=== PATIENT | female | born 1950 | race Caucasian/White ===

== ENCOUNTER 2018-09-10 14:39 | Observation (INO) | payer MEDICARE, OTHER ==
[~2018-09-10] VITALS: Ht 157.5 cm; Wt 96.2 kg
--- OUTSIDE RECORDS SUMMARY | ~2018-09-10 | XMS | Encounter Summary ---
Demographics + + + | Address | [address] | | | [place] [address] | + + + | Home Phone | | + + + | Preferred Language | Unknown | + + + | Marital Status | | + + + | Zoroastrian Affiliation | NON | + + + | Race | White | + + + | Ethnic Group | Not or | + + + Author + + + | Author | [facility] | + + + | Organization | [facility] | + + + | Address | Unknown | + + + | Phone | Unavailable | + + + Support + + + + + | Name | Relationship | Address | Phone | + + + + + | Ted Casas | ECON | [address] | | | | | [place] | | | | | [address] | | + + + + + | Carmen Renteria | ECON | [address] | | | | | [place] | | | | | [address] | | + + + + + | Vince Loredo | ECON | [place] | | + + + + + Care Team Providers + +------+ + | Care Career Technical Education Instructor Name | Role | Phone | + +------+ + | Adrián Gregory MD | PCP | | + +------+ + Reason for Visit + + + | Reason | Comments | + + + | Follow-up encounter | R breast recon follow up | + + + Office Visit - E/M Services (Routine) +--------+--------+ + + + + | Status | Reason | Specialty | Diagnoses / | Referred By | Referred To | | | | | Procedures | Contact | Contact | +--------+--------+ + + + + | Closed | | Plastic | Diagnoses | Pls | Jv, | | | | Surgery | Acquired | Gen/Recon | MD Jelena | | | | | absence of | [address] | | | | | breast | [address] | Ave | | | | | | Mail Code: | [place], [place] | | | | | | [address] | [address] | | | | | | for Health | Phone: | | | | | | and Healing, | [phone] | | | | | | 5th Floor | Fax: | | | | | | [place], [place] | [phone] | | | | | | [address] | | | | | | | Phone: | | | | | | | [phone] | | +--------+--------+ + + + + Encounter Details +--------+---------+ + + + | Date | Type | Department | Care Team | Description | +--------+---------+ + + + | 04/27/ | Office | Plastic and | Jelena Carias, | Acquired absence of | | 2009 | Visit | Reconstructive | [address] | breast; Hernia, | | | | Surgery at [facility] [address] | [place], [place] | epigastric | | | | [address] Mail | [address] | | | | | Code: [facility] Center | [phone] | | | | | for Health and | | | | | | Healing, 5th Floor | | | | | | [place], [place] | | | | | | [address] | | | | | | [phone] | | | +--------+---------+ + + + Social History + + + +--------+ + | Tobacco Use | Types | Packs/Day | Years | Date | | | | | Used | | + + + +--------+ + | Former Smoker | Cigarettes | 1 | 30 | Quit: 04/15/2003 | + + + +--------+ + + + +---------+ + | Alcohol Use | Drinks/Week | oz/Week | Comments | + + +---------+ + | Yes | | | rarely | + + +---------+ + + + + | Sex Assigned at | Date Recorded | | | | + + + | Not on file | | + + + + + + + | Job Start Date | Occupation | Industry | + + + + | Not on file | Not on file | Not on file | + + + + + + + + | Travel History | Travel Start | Travel End | + + + + + + | No recent travel history available. | + + documented as of this encounter Progress Notes Jelena Carias MD - 04/27/2009 11:47 AM PSTSubjective: Roman Casas presents 1 years status post TRAM and 7 months since right NAC. Current concerns include: epigastric bulge No pain or discomfort Objective: Right flap and NAC well healed. Good symmetry Epigastric bulge - 5X5 cm. Reduces when supine. Tender with deep palpation. Lower donor site well healed Assessment: Possible epigastric hernia. She denies nausea/vomiting or pain Otherwise she looks great Plan: Recheck for changes/enlargement Pt will follow up in 2 months with me or, sooner prn. 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
--- OUTSIDE RECORDS SUMMARY | ~2018-09-10 | XMS | Encounter Summary ---
Demographics + + + | Address | [address] | | | [place] [address] | + + + | Home Phone | | + + + | Preferred Language | Unknown | + + + | Marital Status | | + + + | Yarsanism Affiliation | NON | + + + | Race | White | + + + | Ethnic Group | Not or | + + + Author + + + | Author | [facility] | + + + | Organization | [facility] | + + + | Address | Unknown | + + + | Phone | Unavailable | + + + Support + + + + + | Name | Relationship | Address | Phone | + + + + + | Ted Casas | ECON | [address] | | | | | [place] | | | | | [address] | | + + + + + | Carmen Renteria | ECON | [address] | | | | | [place] | | | | | [address] | | + + + + + | Vince Loredo | ECON | [place] | | + + + + + Care Team Providers + +------+ + | Care Pan Washer Hand Name | Role | Phone | + +------+ + | Dominick Garcia MD | PCP | | + +------+ + Encounter Details +--------+ + + + + | Date | Type | Department | Care Team | Description | +--------+ + + + + | 05/31/ | Telephone | [facility] | Redd Ernareina Waldron, | | | 2016 | | Center - Medical | MD [address] | | | | | Oncology [address] | [place], [place] | | | | | Street The | [address] | | | | | [place], [place] | [phone] | | | | | [address] | | | | | | [phone] | | | +--------+ + + + + Social History + + [...] + + documented as of this encounter Plan of Treatment Not on filedocumented as of this encounter Visit Diagnoses Not on filedocumented in this encounter"
--- OUTSIDE RECORDS SUMMARY | ~2018-09-10 | XMS | Encounter Summary ---
Demographics + + + | Address | [address] | | | [place] [address] | + + + | Home Phone | | + + + | Preferred Language | Unknown | + + + | Marital Status | | + + + | Holiness Affiliation | NON | + + + | Race | White | + + + | Ethnic Group | Not or | + + + Author + + + | Author | [facility] | + + + | Organization | [facility] | + + + | Address | Unknown | + + + | Phone | Unavailable | + + + Support + + + + + | Name | Relationship | Address | Phone | + + + + + | Ted Casas | ECON | [address] | | | | | [place] | | | | | [address] | | + + + + + | Carmen Renteria | ECON | [address] | | | | | [place] | | | | | [address] | | + + + + + | Vince Loredo | ECON | [place] | | + + + + + Care Team Providers + +------+ + | Care Police Detention Attendant Name | Role | Phone | + +------+ + | Adrián Gregory MD | PCP | | + +------+ + Encounter Details +--------+ + + + + | Date | Type | Department | Care Team | Description | +--------+ + + + + | 05/10/ | Reinsurance Clerk | Preoperative | [facility] [place] | HTN (Primary Dx) | | 2008 | | [facility] | J, VICE PRESIDENT CONSULTING SERVICES [address] | | | | | [address] | [facility] | | | | | [facility] | [place], [place] | | | | | [facility] | [address] | | | | | room [address] [place] [address], | [phone] | | | | | [place] [address] | | | | | | [phone] | | | +--------+ + + + [...] Comments | + + +---------+ + | Not Asked | | | | + + +---------+ + + + [...] Not on filedocumented as of this encounter Procedures + +--------+ + + + | Procedure Name | Priori | Date/Time | Associated Diagnosis | Comments | | | ty | | | | + +--------+ + + + | 12 LEAD ECG | Routin | 05/07/2008 | HTN | Results for this | | | e | 1:18 PM | | procedure are in the | | | | PST | | results section. | + +--------+ + + + documented in this encounter Results 12 LEAD ECG (05/07/2008 1:18 PM PST) + + + + + + | Component | Value | Ref Range | Performed | Pathologist | | | | | At | Signature | + + + + + + | VENTRICULAR | 89 | BPM | [facility] | | | RATE | | | OF | | | | | | CARDIOLOGY | | + + + + + + | ATRIAL RATE | 89 | BPM | [facility] | | | | | | OF | | | | | | CARDIOLOGY | | + + + + + + | P-R | 166 | ms | [facility] | | | INTERVAL | | | OF | | | | | | CARDIOLOGY | | + + + + + + | QRS | 84 | ms | [facility] | | | DURATION | | | OF | | | | | | CARDIOLOGY | | + + + + + + | QT | 388 | ms | [facility] | | | | | | OF | | | | | | CARDIOLOGY | | + + + + + + | QTC | 472 | ms | [facility] | | | | | | OF | | | | | | CARDIOLOGY | | + + + + + + | P AXIS | 51 | degrees | [facility] | | | | | | OF | | | | | | CARDIOLOGY | | + + + + + + | R AXIS | 22 | degrees | [facility] | | | | | | OF | | | | | | CARDIOLOGY | | + + + + + + | T AXIS | 63 | degrees | [facility] | | | | | | OF | | | | | | CARDIOLOGY | | + + + + + + | EKG | Sinus rhythm with | | [facility] | | | DIAGNOSIS | Possible Premature | | OF | | | | atrial complexes with | | CARDIOLOGY | | | | Aberrant | | | | | | conductionPossible Left | | | | | | atrial enlargementSeptal | | | | | | infarct , age | | | | | | undeterminedAbnormal | | | | | | ECG"I have personally | | | | | | interpreted this report, | | | | | | either alone or with a | | | | | | trainee."Confirmed by | | | | | | BALBINA MOLINA ([id number]) on | | | | | | 11-May-2008 17:09:45 | | | | + + + + + + | LINK TO | | | [facility] | | | [facility] | | | OF | | | (ECG | | | CARDIOLOGY | | | VIEWER) | | | | | + + + + + + + + | Specimen | + + | | + + + + + | Narrative | Performed At | + + + | Please click | [facility] | | on view image for the detailed interpretation from [employer] results. | CARDIOLOGY | | | | + + + + + + + + | Performing | Address | City/State/Zipcode | Phone Number | | Organization | | | | + + + + + | [facility] | [address] | [place], [place] | | | CARDIOLOGY | [address] | [address] | | + + + + + | [facility] | [address] | [place], [place] | | | CARDIOLOGY | [address] [facility] | [address] | | + + + + + documented in this encounter Visit Diagnoses + + | Diagnosis | + + | HTN - Primary Unspecified essential hypertension | + + documented in this encounter
--- OUTSIDE RECORDS SUMMARY | ~2018-09-10 | XMS | Encounter Summary ---
Demographics + + + | Address | [address] | | | [place] [address] | + + + | Home Phone | | + + + | Preferred Language | Unknown | + + + | Marital Status | | + + + | Anabaptist Affiliation | NON | + + + | Race | White | + + + | Ethnic Group | Not or | + + + Author + + + | Author | [facility] | + + + | Organization | [facility] | + + + | Address | Unknown | + + + | Phone | Unavailable | + + + Support + + + + + | Name | Relationship | Address | Phone | + + + + + | Ted Casas | ECON | [address] | | | | | [place] | | | | | [address] | | + + + + + | Carmen Renteria | ECON | [address] | | | | | [place] | | | | | [address] | | + + + + + | Vince Loredo | ECON | [place] | | + + + + + Care Team Providers + +------+ + | Care Tool And Die Engineer Name | Role | Phone | + +------+ + | Dominick Clark | PCP | | + +------+ + Encounter Details +--------+------+ + + + | Date | Type | Department | Care Team | Description | +--------+------+ + + + | 09/10/ | Lab | [facility] | | Malignant neoplasm | | 2017 | | Center - Lab [address] | | of upper-outer | | | | [address] | | quadrant of right | | | | [place], [place] | | breast in female, | | | | [address] | | estrogen receptor | | | | [phone] | | positive (HCC) | +--------+------+ + + + Social History + + + +--------+ + | Tobacco Use | Types | Packs/Day | Years | Date | | | | | Used | | + + + +--------+ + | Former Smoker | Cigarettes | 1 | 30 | Quit: 04/15/2003 | + + + +--------+ + + +---+---+---+ | Smokeless Tobacco: | | | | | Never Used | | | | + +---+---+---+ + + +---------+ + | Alcohol Use [...] | + +--------+ + + + | CBC W/DIFF, REFLEX | Routin | 09/10/2017 | Malignant neoplasm | Results for this | | | e | 9:38 AM | of upper-outer | procedure are in the | | | | PDT | quadrant of right | results section. | | | | | breast in female, | | | | | | estrogen receptor | | | | | | positive (HCC) | | + +--------+ + + + | CBC AND AUTO DIFF | Routin | 09/10/2017 | Malignant neoplasm | Results for this | | | e | 9:38 AM | of upper-outer | procedure are in the | | | | PDT | quadrant of right | results section. | | | | | breast in female, | | | | | | estrogen receptor | | | | | | positive (HCC) | | + +--------+ + + + | CARCINOEMBRYONIC AG, | Routin | 09/10/2017 | Malignant neoplasm | Results for this | | SERUM | e | 9:38 AM | of upper-outer | procedure are in the | | | | PDT | quadrant of right | results section. | | | | | breast in female, | | | | | | estrogen receptor | | | | | | positive (HCC) | | + +--------+ + + + | COMPLETE METABOLIC | Routin | 09/10/2017 | Malignant neoplasm | Results for this | | SET | e | 9:38 AM | of upper-outer | procedure are in the | | (NA,K,CL,CO2,BUN,CRE | | PDT | quadrant of right | results section. | | AT,GLUC,CA,AST,ALT,B | | | breast in female, | | | VINCE TOTAL,ALK | | | estrogen receptor | | | PHOS,ALB,PROT TOTAL) | | | positive (HCC) | | + +--------+ + + + documented in this encounter Results CBC AND AUTO DIFF (09/10/2017 9:38 AM PDT) + + + + + + | Component | Value | Ref Range | Performed | Pathologist | | | | | At | Signature | + + + + + + | WBC COUNT | 4.6 | 3.5 - 10.8 K/cu | [facility] | | | | | mm | A MEDICAL | | | | | | CENTER | | + + + + + + | RED CELL | 4.70 | 4.00 - 5.20 | [facility] | | | COUNT | | M/cu mm | A MEDICAL | | | | | | CENTER | | + + + + + + | HEMOGLOBIN | 13.3 | 12.0 - 16.0 | [facility] | | | | | g/dL | A MEDICAL | | | | | | CENTER | | + + + + + + | HEMATOCRIT | 38.1 | 36.0 - 46.0 % | [facility] | | | | | | A MEDICAL | | | | | | CENTER | | + + + + + + | MCV | 81.1 | 80.0 - 96.0 fL | [facility] | | | | | | A MEDICAL | | | | | | CENTER | | + + + + + + | MCH | 28.3 | 28.0 - 34.7 pg | [facility] | | | | | | A MEDICAL | | | | | | CENTER | | + + + + + + | MCHC | 34.9 | 33.0 - 35.5 | [facility] | | | | | g/dL | A MEDICAL | | | | | | CENTER | | + + + + + + | RDW | 14.9 | 11.5 - 15.0 % | [facility] | | | | | | A MEDICAL | | | | | | CENTER | | + + + + + + | PLATELET | 122 (L) | 150 - 400 K/cu | [facility] | | | COUNT | | mm | A MEDICAL | | | | | | CENTER | | + + + + + + | MPV | 7.7 | 7.5 - 11.2 fL | [facility] | | | | | | A MEDICAL | | | | | | CENTER | | + + + + + + | NEUTROPHIL | 48.4 (L) | 50.0 - 70.0 % | [facility] | | | % | | | A MEDICAL | | | | | | CENTER | | + + + + + + | LYMPHOCYTE | 42.0 | 18.0 - 42.0 % | [facility] | | | % | | | A MEDICAL | | | | | | CENTER | | + + + + + + | MONOCYTE % | 6.5 | 3.5 - 9.0 % | [facility] | | | | | | A MEDICAL | | | | | | CENTER | | + + + + + + | EOS % | 1.9 | 1.0 - 3.0 % | [facility] | | | | | | A MEDICAL | | | | | | CENTER | | + + + + + + | BASO % | 1.2 | 0.0 - 2.0 % | [facility] | | | | | | A MEDICAL | | | | | | CENTER | | + + + + + + | NEUTROPHIL | 2.20 | 1.80 - 7.70 | [facility] | | | # | | K/cu mm | A MEDICAL | | | | | | CENTER | | + + + + + + | LYMPHOCYTE | 1.90 | 1.00 - 4.80 | [facility] | | | # | | K/cu mm | A MEDICAL | | | | | | CENTER | | + + + + + + | MONOCYTE # | 0.30 | 0.10 - 0.90 | [facility] | | | | | K/cu mm | A MEDICAL | | | | | | CENTER | | + + + + + + | EOS # | 0.10 | 0.00 - 0.50 | [facility] | | | | | K/cu mm | A MEDICAL | | | | | | CENTER | | + + + + + + | BASO # | 0.10 | 0.00 - 0.10 | [facility] | | | | | K/cu mm | A MEDICAL | | | | | | CENTER | | + + + + + + + + | Specimen | + + | Blood | + + + + + + + | Performing | Address | City/State/Zipcode | Phone Number | | Organization | | | | + + + + + | [facility] | And | [place] [address] | [phone] | | MEDICAL CENTER | Streets | | | + + + + + CARCINOEMBRYONIC AG, SERUM (09/10/2017 9:38 AM PDT) + +-------+ + + + | Component | Value | Ref Range | Performed | Pathologist | | | | | At | Signature | + +-------+ + + + | CEA-CARCINO | 8.3 | ng/mL | [facility] | | | EMBRYONIC | | | A MEDICAL | | | AG, SERUM | | | CENTER | | + +-------+ + + + + + | Specimen | + + | Blood | + + + + + | Narrative | Performed At | + + + | Reference Range: Non-smokers: 0.0-3.0 ng/mL | [facility] | | Smokers: 0.0-5.0 ng/mL | MEDICAL CENTER | + + + + + + + + | Performing | Address | City/State/Zipcode | Phone Number | | Organization | | | | + + + + + | [facility] | And | [place] [address] | [phone] | | [facility] [place] | [place] | | | + + + + + COMPLETE METABOLIC SET (NA,K,CL,CO2,BUN,CREAT,GLUC,CA,AST,ALT,BILI TOTAL,ALK PHOS,ALB,PROT TOTAL) (09/10/2017 9:38 AM PDT) + +---------+ + + + | Component | Value | Ref Range | Performed | Pathologist | | | | | At | Signature | + +---------+ + + + | GLUCOSE, | 161 (H) | 70 - 105 mg/dL | [facility] | | | PLASMA | | | A MEDICAL | | | (LAB) | | | CENTER | | + +---------+ + + + | BUN, PLASMA | 12 | 6 - 26 mg/dL | [facility] | | | (LAB) | | | A MEDICAL | | | | | | CENTER | | + +---------+ + + + | CREATININE, | 0.5 (L) | 0.6 - 1.1 mg/dL | [facility] | | | PLASMA | | | A MEDICAL | | | | | | CENTER | | + +---------+ + + + | SODIUM, | 144 | 137 - 146 | [facility] | | | PLASMA | | mmol/L | A MEDICAL | | | (LAB) | | | CENTER | | + +---------+ + + + | POTASSIUM, | 4.2 | 3.4 - 5.3 | [facility] | | | PLASMA | | mmol/L | A MEDICAL | | | (LAB) | | | CENTER | | + +---------+ + + + | CHLORIDE, | 104 | 96 - 106 mmol/L | [facility] | | | PLASMA | | | A MEDICAL | | | (LAB) | | | CENTER | | + +---------+ + + + | TOTAL CO2, | 25 | 18 - 30 mmol/L | [facility] | | | PLASMA | | | A MEDICAL | | | (LAB) | | | CENTER | | + +---------+ + + + | CALCIUM, | 9.5 | 8.5 - 10.8 | [facility] | | | PLASMA | | mg/dL | A MEDICAL | | | (LAB) | | | CENTER | | + +---------+ + + + | BILIRUBIN | 0.2 | 0.2 - 1.2 mg/dL | [facility] | | | TOTAL | | | A MEDICAL | | | | | | CENTER | | + +---------+ + + + | TOTAL | 6.6 | 5.8 - 8.5 g/dL | [facility] | | | PROTEIN, | | | A MEDICAL | | | PLASMA | | | CENTER | | | (LAB) | | | | | + +---------+ + + + | ALBUMIN, | 4.0 | 3.5 - 5.0 g/dL | [facility] | | | PLASMA | | | A MEDICAL | | | (LAB) | | | CENTER | | + +---------+ + + + | ALK PHOS | 68 | 32 - 180 U/L | [facility] | | | | | | A MEDICAL | | | | | | CENTER | | + +---------+ + + + | AST(SGOT) | 22 | 10 - 41 U/L | [facility] | | | | | | A MEDICAL | | | | | | CENTER | | + +---------+ + + + | ALT (SGPT) | 20 | 7 - 51 U/L | [facility] | | | | | | A MEDICAL | | | | | | CENTER | | + +---------+ + + + | EGFR | >60 | >60 mL/min | [facility] | | | - | | | A MEDICAL | | | [place] | | | CENTER | | + +---------+ + + + | EGFR NON | >60 | >60 mL/min | [facility] | | | -MAX | | | A MEDICAL | | | [place] | | | CENTER | | + +---------+ + + + | ANION GAP | 15 | 12 - 20 mmol/L | [facility] | | | | | | A MEDICAL | | | | | | CENTER | | + +---------+ + + + | BUN/CREATIN | 24 | 6 - 20 | [facility] | | | INE RATIO | | | A MEDICAL | | | | | | CENTER | | + +---------+ + + + | FASTING 8 | No | | [facility] | | | HOURS OR | | | A MEDICAL | | | MORE? | | | CENTER | | + +---------+ + + + + + | Specimen | + + | Blood | + + + + + | Narrative | Performed At | + + + | GFR is estimated using the MDRD equation recommended by the | [facility] | | National Kidney Disease Education Program. Estimated GFR | [facility] | | Interpretive Information: <60 mL/min/1.73 sq | | | m Chronic Kidney Disease <15 mL/min/1.73 | | | sq m Kidney Failure Estimated GFR greater | | | that 60 mL/min/1.73 sq m is of limited clinical value. The MDRD | | | equation is not valid in the following situations: - Patients under | | | 18 years of age - Severe malnutrition or obesity - Vegetarian diet | | | - Rapidly changing kidney function - Amputees, paraplegics, or other | | | muscle-wasting diseses | | + + + + + + + + | Performing | Address | City/State/Zipcode | Phone Number | | Organization | | | | + + + + + | [facility] | | [place] [address] | [phone] | | [facility] | Streets | | | + + + + + documented in this encounter Visit Diagnoses + + | Diagnosis | + + | Malignant neoplasm of upper-outer quadrant of right breast in female, estrogen | | receptor positive (HCC) | + + documented in this encounter"
--- OUTSIDE RECORDS SUMMARY | ~2018-09-10 | XMS | Encounter Summary ---
Demographics + + + | Address | [address] | | | [place] [address] | + + + | Home Phone | | + + + | Preferred Language | Unknown | + + + | Marital Status | | + + + | Sabianism Affiliation | NON | + + + | Race | White | + + + | Ethnic Group | Not or | + + + Author + + + | Author | [facility] | + + + | Organization | [facility] | + + + | Address | Unknown | + + + | Phone | Unavailable | + + + Support + + + + + | Name | Relationship | Address | Phone | + + + + + | Ted Casas | ECON | [address] | | | | | [place] | | | | | [address] | | + + + + + | Carmen Renteria | ECON | [address] | | | | | [place] | | | | | [address] | | + + + + + | Vince Loredo | ECON | [place] | | + + + + + Care Team Providers + +------+ + | Care Head End Desizing Machine Operator Name | Role | Phone | + +------+ + | Adrián Gregory MD | PCP | | + +------+ + Encounter Details +--------+ + + + + | Date | Type | Department | Care Team | Description | +--------+ + + + + | 01/09/ | Office | [facility] | Erna Rainey, | Progress Note | | 2010 | Visit-Trans | [address] | MD [address] | | | | [address]ed | [place] | [place] | | | | | [address] | [address] | | | | | | [phone] | | | | | | | | +--------+ + + + [...] documented as of this encounter Progress Notes Erna Rainey MD - 01/09/2011 12:40 PM [facility] [address] [place] [id number] [place], [place] [address] DATE OF SERVICE: January 09, 2011 DIAGNOSIS: Stage I (T1b N0 M0) breast cancer. INTERVAL HISTORY: The patient is currently taking Arimidex as part of adjuvant treatment. She started in April 2007, has been taking it since then. She reported persistent hot flashes, which are tolerable to her. She had a quite significant arthralgia due to Arimidex, for which she is being treated with Percocet. She averaged about less than 1 tablet a day. She had a bone scan in June 2010, which revealed no evidence of metastatic disease. PHYSICAL EXAMINATION: VITAL SIGNS: She weighs 169.4 pounds. Blood pressure 128/82, pulse 86, temperature 97.7, saturation 98%. GENERAL APPEARANCE: She is pleasant and well nourished and not in acute distress. HEENT: Sclerae nonicteric. No facial asymmetry. NECK: Supple. LUNGS: Clear. HEART: Rate is regular. BREASTS: Examination reveals surgical scars well healed in the right breast, status post reconstruction. There is no palpable mass, nipple discharge or retraction. Left breast examination is normal. No axillary palpable lymphadenopathies bilaterally. LABORATORY DATA: WBC 4.6, hemoglobin 12.2, platelet count 167,000. CMP is unremarkable. IMPRESSION: Doing well clinically without any evidence of cancer recurrence. PLAN: 1. Gave refill of Percocet. 2. She will take Arimidex until April 2012. 3. She will return in 6 months for next followup. PAKO/Juan /[id number] Electronically Signed 02/08/12 0916 X MD LEONARDO Brown LEE ANN [id number] : [id number] SERVICE DATE: 01/09/11 3 :56 PM PDTdocumented in this encounter Plan of Treatment Not on filedocumented as of this encounter Visit Diagnoses Not on filedocumented in this encounter"
--- OUTSIDE RECORDS SUMMARY | ~2018-09-10 | XMS | Clinical Summary ---
Demographics + + + | Address | [address] | | | [place] [address] | + + + | Home Phone | | + + + | Preferred Language | Unknown | + + + | Marital Status | | + + + | Spiritism Affiliation | Unknown | + + + | Race | Unknown | + + + | Ethnic Group | Unknown | + + + Author + + + | Author | [facility] | + + + | Organization | [facility] | + + + | Address | Unknown | + + + | Phone | Unavailable | + + + Support + + + + + | Name | Relationship | Address | Phone | + + + + + | Ted Patterson | ECON | [address] | | | | | [place] | | | | | [address] | | + + + + + | Jersey Marroquin | ECON | [place] | | | | | [address] | | + + + + + Care Team Providers + +------+ + | Care Stain Remover Name | Role | Phone | + +------+ + | Joselin Jose PA-C | PP | | + +------+ + Allergies + + + + + + | Active Allergy | Reactions | Severity | Noted | Comments | | | | | Date | | + + + + + + | Cephalexin | Hives | High | 01/28/20 | | | | | | 16 | | + + + + + + | Penicillins | Hives | High | 05/12/19 | | | | | | 16 | | + + + + + + | Quinine | Hives | High | 08/29/19 | | | | | | 16 | | + + + + + + | Sulfa Antibiotics | Hives | High | 05/12/19 | | | | | | 16 | | + + + + + + Current Medications + + + +---------+------+------+-------+ | Prescription | Sig. | Disp. | Refills | Star | End | Statu | | | | | | t | Date | s | | | | | | Date | | | + + + +---------+------+------+-------+ | fenofibrate | Take 160 mg by mouth | | | | | Activ | | (TRIGLIDE) 160 MG | daily. | | | | | e | | tablet | | | | | | | + + + +---------+------+------+-------+ | FLUoxetine | Take 20 mg by mouth | | | | | Activ | | (PROZAC) 20 MG | daily. | | | | | e | | capsule | | | | | | | + + + +---------+------+------+-------+ | furosemide (LASIX) | Take 40 mg by mouth | | | | | Activ | | 20 MG tablet | daily. | | | | | e | + + + +---------+------+------+-------+ | irbesartan | Take 300 mg by mouth | | | | | Activ | | (AVAPRO) 300 MG | daily. | | | | | e | | tablet | | | | | | | + + + +---------+------+------+-------+ | levothyroxine | Take 75 mcg by mouth | | | | | Activ | | (SYNTHROID) 75 MCG | every morning | | | | | e | | tablet | before breakfast. | | | | | | + + + +---------+------+------+-------+ | potassium chloride | Take 20 mEq by mouth | | | | | Activ | | (K-DUR) 10 MEQ | 3 (three) times | | | | | e | | tablet | daily. | | | | | | + + + +---------+------+------+-------+ | rosuvastatin | Take 40 mg by mouth | | | | | Activ | | (CRESTOR) 40 MG | nightly. | | | | | e | | tablet | | | | | | | + + + +---------+------+------+-------+ | | Take 1 tablet by | | | | | Activ | | sitagliptan-metformi | mouth 2 (two) times | | | | | e | | n (LACEY) 50-1000 | daily with meals. | | | | | | | MG per tablet | | | | | | | + + + +---------+------+------+-------+ | glucagon 1 MG | Inject 1 mg into the | | | | | Activ | | injection | vein. | | | | | e | + + + +---------+------+------+-------+ | metoprolol | Take 50 mg by mouth | | | | | Activ | | (TOPROL-XL) 50 MG 24 | daily. | | | | | e | | hr tablet | | | | | | | + + + +---------+------+------+-------+ | esomeprazole | Take 40 mg by mouth | | | | | Activ | | (NEXIUM) 20 MG | every morning before | | | | | e | | capsule | breakfast. | | | | | | + + + +---------+------+------+-------+ | insulin aspart | 20 units at | 30 mL | 12 | 07/1 | | Activ | | (NOVOLOG FLEXPEN) | breakfast, 15 units | | | 4/20 | | e | | 100 UNIT/ML | at lunch, at 30 | | | 16 | | | | injection | units at dinner; | | | | | | | | subq | | | | | | + + + +---------+------+------+-------+ | bisacodyl | Place 1 suppository | 1 | 0 | 12/14 | | Activ | | (DULCOLAX) 10 MG | rectally the day | supposito | | 1/20 | | e | | suppository | before the CT scan | ry | | 16 | | | + + + +---------+------+------+-------+ | amitriptyline | Take 100 mg by mouth | | | | | Activ | | (ELAVIL) 50 MG | nightly. | | | | | e | | tablet | | | | | | | + + + +---------+------+------+-------+ | DULoxetine | Take one tablet once | 90 | 2 | 05/2 | | Activ | | (CYMBALTA) 30 MG | a day for a week, | capsule | | 4/20 | | e | | capsule | then switch to two a | | | 19 | | | | | day | | | | | | + + + +---------+------+------+-------+ | anastrozole | Take 1 mg by mouth | | | | 05/2 | Disco | | (ARIMIDEX) 1 MG | daily. | | | | 4/20 | ntinu | | tablet | | | | | 19 | ed | + + + +---------+------+------+-------+ | | Take 1 tablet by | | | | 05/2 | Disco | | HYDROcodone-acetamin | mouth every 4 (four) | | | | 4/20 | ntinu | | ophen (NORCO) 5-325 | hours as needed for | | | | 19 | ed | | MG per tablet | Pain. | | | | | | + + + +---------+------+------+-------+ | | Take 1 tablet by | | | | 05/2 | Disco | | oxyCODONE-acetaminop | mouth every 6 (six) | | | | 4/20 | ntinu | | hen (PERCOCET) 5-325 | hours as needed for | | | | 19 | ed | | MG per tablet | Pain. | | | | | | + + + +---------+------+------+-------+ | LORazepam (ATIVAN) | Take 0.5 mg by mouth | | | | 05/2 | Disco | | 0.5 MG tablet | every 8 (eight) | | | | 4/20 | ntinu | | | hours as needed for | | | | 19 | ed | | | Anxiety. | | | | | | + + + +---------+------+------+-------+ | insulin glargine | Inject 65 Units into | 30 mL | 11 | 07/1 | 05/2 | Disco | | (LANTUS SOLOSTAR) | the skin nightly. | | | 4/20 | 4/20 | ntinu | | 100 UNIT/ML | | | | 16 | 19 | ed | | injection | | | | | | | + + + +---------+------+------+-------+ | barium (VARIBAR) | Take barium oral | 3 | 0 | / | 05/2 | Disco | | 40 % SUSP | prep per included | Bottle | | 05/04 | 20 | ntinu | | | written | | | 16 | 19 | ed | | | instructions. | | | | | | + + + +---------+------+------+-------+ | magnesium citrate | Take the day before | 296 mL | 0 | 12/14 | 05/2 | Disco | | solution | CT scan | | | 05/04 | 08/02 | ntinu | | | | | | 16 | 19 | ed | + + + +---------+------+------+-------+ | bisacodyl | Take 2 tablets by | 2 | 0 | 12/14 | 05/2 | Disco | | (DULCOLAX) 5 MG EC | mouth the day before | tablet | | 20 | 4/20 | ntinu | | tablet | CT exam. | | | 16 | 19 | ed | + + + +---------+------+------+-------+ Active Problems + + + | Problem | Noted Date | + + + | Lumbosacral radiculopathy at L5 | 09/09/2018 | + + + | Polyneuropathy | 07/30/2018 | + + + | Type II diabetes mellitus, uncontrolled | 10/27/2015 | + + + | Essential hypertension with goal blood pressure less than 130/80 | 10/27/2015 | + + + | Hyperlipidemia | 10/27/2015 | + + + | Bilateral carpal tunnel syndrome | 07/07/2015 | + + + Encounters +--------+ + + + + | Date | Type | Specialty | Care Team | Description | +--------+ + + + + | 09/05/ | Office | | Wally Shell, | Achilles tendon pain | | 2019 | Visit | | MD | (Primary Dx); | | | | | | Lumbosacral | | | | | | radiculopathy at L5; | | | | | | Polyneuropathy | +--------+ + + + + | 09/05/ | Refill | | Olivia Loera | | 2018 | | | [facility] | | +--------+ + + + + | 08/05/ | Hospital | | Wally Shell, | Numbness | | 2018 | Encounter | | MD | | +--------+ + + + + | 07/30/ | Procedure | | Wally Shell, | Numbness (Primary | | 2018 | visit | | | Dx); Polyneuropathy | +--------+ + + + + | 07/30/ | Procedure | | | | | 2018 | Pass | | | | +--------+ + + + + | 06/20/ | Documentati | Wally Barker, | | | 2019 | on Only | | MD | | +--------+ + + + + | 06/19/ | Telephone | | Wally Shell, | Referral (Returning | | 2018 | | | MD | call to schedule | | | | | | consult) | +--------+ + + + + from Last 3 Months Family History + + +------+ + | Medical History | Relation | Name | Comments | + + +------+ + | Diabetes type II | Brother | | | + + +------+ + | Cancer | Father | | pancreatic | + + +------+ + | Cancer | Paternal | | lung cancer (smoker) | | | Aunt | | | + + +------+ + | Cancer | Paternal | | brain | | | Grandmoth | | | | | er | | | + + +------+ + + +------+--------+ + | Relation | Name | Status | Comments | + +------+--------+ + | Brother | | | | + +------+--------+ + | Father | | | | + +------+--------+ + | Paternal Aunt | | | | + +------+--------+ + | Paternal Grandmother | | | | + +------+--------+ + Social History + +-------+ +--------+ + | Tobacco Use | Types | Packs/Day | Years | Date | | | | | Used | | + +-------+ +--------+ + | Former Smoker | | 0.5 | 30 | Quit: 04/15/2005 | + +-------+ +--------+ + + +---+---+---+ | Smokeless Tobacco: | | | | | Never Used | | | | + +---+---+---+ + + +---------+ + | Alcohol Use | Drinks/We | oz/Week | Comments | | | ek | | | + + +---------+ + | Yes | | | rarely | + + +---------+ + + + + | Sex Assigned at | Date Recorded | | | | + + + | Not on file | | + + + Last Filed Vital Signs + + + + | Vital Sign | Reading | Time Taken | + + + + | Blood Pressure | 129/78 | 09/05/2018 8:22 AM PDT | + + + + | Pulse | 103 | 09/05/2018 8:22 AM PDT | + + + + | Temperature | 36.4 C (97.5 F) | 05/13/2015 2:04 AM PST | + + + + | Respiratory Rate | 18 | 05/13/2015 2:04 AM PST | + + + + | Oxygen Saturation | 95% | 09/05/2018 8:22 AM PDT | + + + + | Inhaled Oxygen | - | - | | Concentration | | | + + + + | Weight | 84.4 kg (186 lb 1.6 | 05/09/2016 12:51 PM PST | | | oz) | | + + + + | Height | 157.5 cm (5' 2") | 06/04/2002 3:28 PM PST | + + + + | Body Mass Index | - | - | + + + + Plan of Treatment +--------+---------+ + + + | Date | Type | Specialty | Care Team | Description | +--------+---------+ + + + | 10/21/ | Office | | Wally Shell, | | | 2019 | Visit | | MD Bart Sheridan | | | | | | [place], [place] | | | | | | [phone] | | | | | | | | +--------+---------+ + + + + + + + + | Health Maintenance | Due Date | Last Done | Comments | + + + + + | Diabetic Eye Exam | | | | | | 2 | | | + + + + + | Hemoglobin A1c | | | | | | 2 | | | + + + + + | Microalbumin | | | | | Screening | 2 | | | + + + + + | Breast Cancer | | | | | Screening | 2 | | | | (Mammogram) | | | | + + + + + | Vaccine: Zoster (2 | | 08/06/2014 | | | of 3) | 5 | | | + + + + + | DEXA SCAN SCREENING | | | | | | 7 | | | + + + + + | Diabetic Foot Exam | | 05/09/2016 | | | | 8 | | | + + + + + | Vaccine: | | 06/26/2017 | | | Pneumococcal 65+ | 9 | | | | Low/Medium Risk (2 | | | | | of 2 - PPSV23) | | | | + + + + + | Vaccine: | | 10/25/2014 | | | Dtap/Tdap/Td (2 - | 5 | | | | Td) | | | | + + + + + | Colon Cancer | | 12/26/2015 | | | Screening | 6 | | | | (Colonoscopy) | | | | + + + + + | Vaccine: Influenza | Completed | 01/02/2018, 02/28/2017, | | | | | 12/28/2015 | | + + + + + Procedures + +--------+ + + + | Procedure Name | Priori | Date/Time | Associated Diagnosis | Comments | | | ty | | | | + +--------+ + + + | MRI LUMBAR SPINE WO | Routin | 08/05/2018 | Numbness | Results for this | | CONTRAST | e | 1:03 PM | | procedure are in the | | | | PDT | | results section. | + +--------+ + + + from Last 3 Months Results MRI lumbar spine without contrast (08/05/2018 1:03 PM) + + + | Impressions | Performed At | + + + | 1. Moderate to severe disc space narrowing and endplate degeneration | [facility] | | seen at L4-L5 and L5-S1. 2. Narrowing of the left lateral recess at | [facility] | | L4-5 compresses the traversing left L5 nerve root. 3. Moderate | | | bilateral foraminal narrowing at L5-S1 with possible compression of | | | the exiting L5 nerve roots. Signed by: Linda Lopez, J Luis Sign | | | Date/Time: 08/06/2018 10:49 AM | | + + + + + + | Narrative | Performed At | + + + | MRI LUMBAR SPINE WITHOUT CONTRAST CLINICAL INFORMATION: Numbness | [facility] | | in left big toe. COMPARISON: CT ABDOMEN W CONTRAST (11/02/2013); CT | RADIOLOGY | | VIRTUAL COLONOSCOPY WO CONTRAST (12/26/2015); PROCEDURE: Sagittal | | | T2, axial T2, sagittal T1, axial T1, sagittal STIR sequences. | | | FINDINGS: Alignment: Normal. Vertebrae and vertebral marrow signal: | | | Normal. Conus and imaged portions of the caudal cord: | | | Normal. Conus terminates at L1-L2. Lumbar disc levels: | | | T12-L1: No spinal canal or neural foraminal stenosis. L1-2: No | | | spinal canal or neural foraminal stenosis. L2-3: No spinal canal | | | or neural foraminal stenosis. L3-4: No spinal canal or neural | | | foraminal stenosis. L4-5: Moderate degenerative disc disease seen | | | with disc space narrowing and endplate erosions. The disc shows | | | circumferential bulging. The canal measures 12 mm in AP dimension | | | however there is narrowing of the left lateral recess due to the disc | | | bulge and facet hypertrophy and thickening of the ligamentum | | | flavum. Compression of the traversing left L5 nerve root is | | | seen. There is moderate left foraminal narrowing due to the | | | overall disc space narrowing and encroaching disc material in the | | | left neural foramen as well as encroachment by the superior L5 | | | articular facet. There is mild compression of the exiting left L4 | | | nerve root. The right neural foramen is patent. | | | L5-S1: Moderate degenerative disc disease seen with disc space | | | narrowing and endplate erosions. The posterior contour of the disc | | | is normal. The canal is patent. No compression of the | | | traversing S1 nerve roots is seen bilateral foraminal narrowing is | | | noted due to encroachment by the superior S1 articular facets and | | | small bilateral foraminal disc protrusions. There appears to be | | | contact of the exiting L5 nerve roots in both neural foramina and | | | possible mild compression. The visualized portions of the kidneys | | | demonstrate a large 3.9 cm simple cyst of the right kidney. The | | | visualized portions of the liver, adrenal glands and aorta are | | | normal. Paraspinal musculature and paravertebral soft tissues: Normal | | | except for extensive subcutaneous edema from T12 through S3. | | + + + + + | Procedure Note | + + | Miguel, Rad Results In - 08/06/2018 10:53 AM PDT MRI LUMBAR SPINE WITHOUT CONTRAST | | CLINICAL INFORMATION: | | Numbness in left big toe. | | COMPARISON: | | CT ABDOMEN W CONTRAST (11/02/2013); CT VIRTUAL COLONOSCOPY WO CONTRAST | | (12/26/2015); | | PROCEDURE: | | Sagittal T2, axial T2, sagittal T1, axial T1, sagittal STIR sequences. | | FINDINGS: | | Alignment: Normal. | | Vertebrae and vertebral marrow signal: Normal. | | Conus and imaged portions of the caudal cord: Normal. Conus terminates | | at L1-L2. | | Lumbar disc levels: | | T12-L1: No spinal canal or neural foraminal stenosis. | | L1-2: No spinal canal or neural foraminal stenosis. | | L2-3: No spinal canal or neural foraminal stenosis. | | L3-4: No spinal canal or neural foraminal stenosis. | | L4-5: Moderate degenerative disc disease seen with disc space | | narrowing and endplate erosions. The disc shows circumferential | | bulging. The canal measures 12 mm in AP dimension however there is | | narrowing of the left lateral recess due to the disc bulge and facet | | hypertrophy and thickening of the ligamentum flavum. Compression of | | the traversing left L5 nerve root is seen. There is moderate left | | foraminal narrowing due to the overall disc space narrowing and | | encroaching disc material in the left neural foramen as well as | | encroachment by the superior L5 articular facet. There is mild | | compression of the exiting left L4 nerve root. The right neural | | foramen is patent. | | L5-S1: Moderate degenerative disc disease seen with disc space | | narrowing and endplate erosions. The posterior contour of the disc is | | normal. The canal is patent. No compression of the traversing S1 | | nerve roots is seen bilateral foraminal narrowing is noted due to | | encroachment by the superior S1 articular facets and small bilateral | | foraminal disc protrusions. There appears to be contact of the exiting | | L5 nerve roots in both neural foramina and possible mild compression. | | The visualized portions of the kidneys demonstrate a large 3.9 cm | | simple cyst of the right kidney. The visualized portions of the liver, | | adrenal glands and aorta are normal. | | Paraspinal musculature and paravertebral soft tissues: Normal except | | for extensive subcutaneous edema from T12 through S3. | | IMPRESSION: | | 1. Moderate to severe disc space narrowing and endplate degeneration | | seen at L4-L5 and L5-S1. | | 2. Narrowing of the left lateral recess at L4-5 compresses the | | traversing left L5 nerve root. | | 3. Moderate bilateral foraminal narrowing at L5-S1 with possible | | compression of the exiting L5 nerve roots. | | Signed by: Linda Lopez Edward | | Sign Date/Time: 08/06/2018 10:49 AM | + + + + + + + | Performing | Address | City/State/Zipcode | Phone Number | | Organization | | | | + + + + + | [facility] | [address] | [place] [address] | | + + + + + from Last 3 Months Insurance + +--------+ +------+-------+ + | Payer | Benefi | Subscriber | Type | Phone | Address | | | t Plan | ID | | | | | | / | | | | | | | Group | | | | | + +--------+ +------+-------+ + | MEDICARE | MEDICA | [id number] | | | [address] | | | RE | | | | [place], [place] [address] | | | YOBANY | | | | | | | AD | | | | | + +--------+ +------+-------+ + | COMMERCIAL OTHER | COMMER | [id number] | | | | | | CIAL | | | | | | | GENERI | | | | | | | C PLAN | | | | | + +--------+ +------+-------+ + + +--------+ +--------+ + + | Guarantor Name | Accoun | Relation to | Date | Phone | Billing Address | | | t Type | Patient | of | | | | | | | | | | + +--------+ +--------+ + + | PERRY PATTERSON | Person | Self [birth year] Home: | [address] | | | al/[place] | | [phone] | [phone] [place] | | | jitendra | | | [phone] | [phone] | + +--------+ +--------+ + +
--- OUTSIDE RECORDS SUMMARY | ~2018-09-10 | XMS | Encounter Summary ---
Demographics + + + | Address | [address] | | | [place] [address] | + + + | Home Phone | | + + + | Preferred Language | Unknown | + + + | Marital Status | | + + + | Moravian Affiliation | NON | + + + | Race | White | + + + | Ethnic Group | Not or | + + + Author + + + | Author | [facility] | + + + | Organization | [facility] | + + + | Address | Unknown | + + + | Phone | Unavailable | + + + Support + + + + + | Name | Relationship | Address | Phone | + + + + + | Ted Casas | ECON | [address] | | | | | [place] | | | | | [address] | | + + + + + | Carmen Renteria | ECON | [address] | | | | | [place] | | | | | [address] | | + + + + + | Vince Loredo | ECON | [place] | | + + + + + Care Team Providers + +------+ + | Care Electronic Scanner Operator Name | Role | Phone | + +------+ + | Dominick Clark | PCP | | + +------+ + Reason for Visit + + + | Reason | Comments | + + + | Refill Request | | + + + Encounter Details +--------+--------+ + + + | Date | Type | Department | Care Team | Description | +--------+--------+ + + + | 05/24/ | Refill | [facility] | Erna Rainey, | Refill Request | | 2017 | | Center - Medical | MD [address] | | | | | Oncology [address] | [place], [place] | | | | | [place] | [address] | | | | | [place], [place] | [phone] | | | | | [address] | | | | | | [phone] | | | +--------+--------+ + + + Social History + + [...]
--- OUTSIDE RECORDS SUMMARY | ~2018-09-10 | XMS | Encounter Summary ---
Demographics + + + | Address | [address] | | | [place] [address] | + + + | Home Phone | | + + + | Preferred Language | Unknown | + + + | Marital Status | | + + + | Anabaptist Affiliation | NON | + + + | Race | White | + + + | Ethnic Group | Not or | + + + Author + + + | Author | [facility] | + + + | Organization | [facility] | + + + | Address | Unknown | + + + | Phone | Unavailable | + + + Support + + + + + | Name | Relationship | Address | Phone | + + + + + | Ted Casas | ECON | [address] | | | | | [place] | | | | | [address] | | + + + + + | Carmen Renteria | ECON | [address] | | | | | [place] | | | | | [address] | | + + + + + | Vince Loredo | ECON | [place] | | + + + + + Care Team Providers + +------+ + | Care State'S Attorney Name | Role | Phone | + +------+ + | Adrián Gregory MD | PCP | | + +------+ + Encounter Details +--------+ + + + + | Date | Type | Department | Care Team | Description | +--------+ + + + + | 08/19/ | Results | [facility] | Erna Rainey, | | | 2007 | Only | Department | MD [address] | | | | | | [place] | | | | | | [address] | | | | | | [phone] | | | | | | | | +--------+ + + + + Social History + +-------+ +--------+------+ | Tobacco Use | Types | Packs/Day | Years | Date | | | | | Used | | + +-------+ +--------+------+ | Never Assessed | | | | | + +-------+ +--------+------+ + + + | Sex Assigned at [...] | CBC W/DIFF, REFLEX | Routin | 08/20/2007 | | Results for this | | | e | 11:55 AM | | procedure are in the | | | | PDT | | results section. | + +--------+ + + + | COMPLETE METABOLIC | Routin | 08/20/2007 | | Results for this | | SET | e | 11:55 AM | | procedure are in the | | (NA,K,CL,CO2,BUN,CRE | | PDT | | results section. | | AT,GLUC,CA,AST,ALT,B | | | | | | VINCE TOTAL,ALK | | | | | | PHOS,ALB,PROT TOTAL) | | | | | + +--------+ + + + documented in this encounter Results CBC W/DIFF, REFLEX (08/20/2007 11:55 AM PDT) + + + + + + | Component | Value | Ref Range | Performed | Pathologist | | | | | At | Signature | + + + + + + | WHITE BLOOD | 6.6 | 4.3 - 11.0 X10 | [facility] | | | CELL COUNT | | 3/ul | A MEDICAL | | | | | | CENTER | | + + + + + + | HEMOGLOBIN | 12.5 | 12.0 - 16.0 | [facility] | | | | | g/dL | A MEDICAL | | | | | | CENTER | | + + + + + + | RED BLOOD | 4.24 | 4.2 - 5.4 X10 | [facility] | | | CELL COUNT | | 6/uL | A MEDICAL | | | | | | CENTER | | + + + + + + | HEMATOCRIT | 35.9 (L) | 38.0 - 47.0 % | [facility] | | | | | | A MEDICAL | | | | | | CENTER | | + + + + + + | MCV | 85.0 | 82 - 100 fl | [facility] | | | | | | A MEDICAL | | | | | | CENTER | | + + + + + + | MCH | 29.4 | 28.0 - 32.0 pg | [facility] | | | | | | A MEDICAL | | | | | | CENTER | | + + + + + + | MCHC | 34.8 | 32 - 36 g/dL | [facility] | | | | | | A MEDICAL | | | | | | CENTER | | + + + + + + | RDW | 12.9 | 12 - 15 fL | [facility] | | | | | | A MEDICAL | | | | | | CENTER | | + + + + + + | PLATELET | 187 | 150 - 450 X10 3 | [facility] | | | COUNT | | | A MEDICAL | | | | | | CENTER | | + + + + + + | MPV | 7.5 (L) | 9.0 - 12.0 fL | [facility] | | | | | | A MEDICAL | | | | | | CENTER | | + + + + + + | NEUTROPHIL | 53.5 | 40 - 80 % | [facility] | | | % | | | A MEDICAL | | | | | | CENTER | | + + + + + + | NEUTROPHIL | 3.5 | 1.9 - 8.0 x10 | [facility] | | | # | | 3/UL | A MEDICAL | | | | | | CENTER | | + + + + + + | LYMPHOCYTE | 35.1 | 10 - 45 % | [facility] | | | % | | | A MEDICAL | | | | | | CENTER | | + + + + + + | LYMPHOCYTE | 2.3 | 0.9 - 5.2 x10 | [facility] | | | # | | 3/UL | A MEDICAL | | | | | | CENTER | | + + + + + + | EOS % | 5.1 (H) | 0 - 5 % | [facility] | | | | | | A MEDICAL | | | | | | CENTER | | + + + + + + | EOS # | 0.3 | 0.00 - 0.80 x10 | [facility] | | | | | 3/UL | A MEDICAL | | | | | | CENTER | | + + + + + + | BASO % | 0.6 | 0 - 1 % | [facility] | | | | | | A MEDICAL | | | | | | CENTER | | + + + + + + | BASO # | 0.0 | 0 - 0.20 x10 | [facility] | | | | | 3/UL | A MEDICAL | | | | | | CENTER | | + + + + + + | MONOCYTE % | 5.7 | 2 - 10 % | [facility] | | | | | | A MEDICAL | | | | | | CENTER | | + + + + + + | MONOCYTE # | 0.4 | 0.16 - 1.0 x10 | [facility] | | | | | 3/UL | A MEDICAL | | | | | | CENTER | | + + + + + + | BANDS % | 1.4 | 0 - 7 % | [facility] | | | | | | A MEDICAL | | | | | | CENTER | | + + + + + + | BANDS # | 0.1 | 0.00 - 0.70 x10 | [facility] | | | | | 3/UL | A MEDICAL | | | | | | CENTER | | + + + + + + + + | Specimen | + + | | + + + + + + + | Performing | Address | City/State/Zipcode | Phone Number | | Organization | | | | + + + + + | [facility] | | | | | LABORATORY | | | | + + + + + | [facility] | [address] | [place] [address] | | | MEDICAL CENTER | Streets | | | + + + + + COMPLETE METABOLIC SET (NA,K,CL,CO2,BUN,CREAT,GLUC,CA,AST,ALT,BILI TOTAL,ALK PHOS,ALB,PROT TOTAL) (08/20/2007 11:55 AM PDT) + +---------+ + + + | Component | Value | Ref Range | Performed | Pathologist | | | | | At | Signature | + +---------+ + + + | SODIUM, | 138 | 137 - 146 MEQ/L | [facility] | | | PLASMA | | | A MEDICAL | | | (LAB) | | | CENTER | | + +---------+ + + + | POTASSIUM, | 3.6 | 3.5 - 5.2 MEQ/L | [facility] | | | PLASMA | | | A MEDICAL | | | (LAB) | | | CENTER | | + +---------+ + + + | CO2 | 27 | 22 - 28 MEQ/L | [facility] | | | | | | A MEDICAL | | | | | | CENTER | | + +---------+ + + + | CHLORIDE, | 104 | 98 - 106 MEQ/L | [facility] | | | PLASMA | | | A MEDICAL | | | (LAB) | | | CENTER | | + +---------+ + + + | GLUCOSE, | 157 (H) | 70 - 105 MG/DL | [facility] | | | PLASMA | | | A MEDICAL | | | (LAB) | | | CENTER | | + +---------+ + + + | BUN, PLASMA | 20 | 8 - 30 MG/DL | [facility] | | | (LAB) | | | A MEDICAL | | | | | | CENTER | | + +---------+ + + + | CREATININE | 0.60 | 0.6 - 1.1 MG/DL | [facility] | | | PLASMA | | | A MEDICAL | | | (LAB) | | | CENTER | | + +---------+ + + + | BUN/CREATIN | 33 (H) | 6 - 20 RATIO | [facility] | | | INE RATIO | | | A MEDICAL | | | | | | CENTER | | + +---------+ + + + | CALCIUM, | 9.4 | 8.5 - 10.8 | [facility] | | | PLASMA | | MG/DL | A MEDICAL | | | (LAB) | | | CENTER | | + +---------+ + + + | AST(SGOT) | 28 | 10 - 41 U/L | [facility] | | | | | | A MEDICAL | | | | | | CENTER | | + +---------+ + + + | ALT (SGPT) | 32 | 7 - 51 U/L | [facility] | | | | | | A MEDICAL | | | | | | CENTER | | + +---------+ + + + | ALK PHOS | 47 | 40 - 180 U/L | [facility] | | | | | | A MEDICAL | | | | | | CENTER | | + +---------+ + + + | TOTAL | 6.4 (L) | 6.7 - 8.5 G/DL | [facility] | | | PROTEIN, | | | A MEDICAL | | | PLASMA | | | CENTER | | | (LAB) | | | | | + +---------+ + + + | ALBUMIN, | 3.9 | 3.5 - 5.0 G/DL | [facility] | | | PLASMA | | | A MEDICAL | | | (LAB) | | | CENTER | | + +---------+ + + + | BILIRUBIN | 0.6 | 0.2 - 1.6 MG/DL | [facility] | | | TOTAL | | | A MEDICAL | | | | | | CENTER | | + +---------+ + + + | FASTING? | 4HR PC | HR | [facility] | | | | | | A MEDICAL | | | | | | CENTER | | + +---------+ + + + + + | Specimen | + + | | + + + + + + + | Performing | Address | City/State/Zipcode | Phone Number | | Organization | | | | + + + + + | [facility] | | | | | LABORATORY | | | | + + + + + | [facility] | [address] | [place] [address] | | | MEDICAL CENTER | Streets | | | + + + + + documented in this encounter Visit Diagnoses Not on filedocumented in this encounter"
--- OUTSIDE RECORDS SUMMARY | ~2018-09-10 | XMS | Encounter Summary ---
Demographics + + + | Address | [address] | | | [place] [address] | + + + | Home Phone | | + + + | Preferred Language | Unknown | + + + | Marital Status | | + + + | Sabianism Affiliation | NON | + + + | Race | White | + + + | Ethnic Group | Not or | + + + Author + + + | Author | [facility] | + + + | Organization | [facility] | + + + | Address | Unknown | + + + | Phone | Unavailable | + + + Support + + + + + | Name | Relationship | Address | Phone | + + + + + | Ted Casas | ECON | [address] | | | | | [place] | | | | | [address] | | + + + + + | Carmen Renteria | ECON | [address] | | | | | [place] | | | | | [address] | | + + + + + | Vince Loredo | ECON | [place] | | + + + + + Care Team Providers + +------+ + | Care Head Of Digital Name | Role | Phone | + +------+ + PCP | Unavailable | + +------+ + Reason for Visit + + + | Reason | Comments | + + + | History and physical | right breast reconstruction with TRAM flap | | examination | | + + + | Pre-op evaluation | | + + + Encounter Details +--------+---------+ + + + | Date | Type | Department | Care Team | Description | +--------+---------+ + + + | 05/07/ | Office | Plastic and | Andrew Mendez PA | Acquired Absence of | | 2008 | Visit | Reconstructive | | Breast; Other | | | | Surgery at [facility] [address] | | Specified | | | | [address] | | Pre-Operative | | | | Code: [facility] Center | | Examination | | | | for Health and | | | | | | Healing, 5th Floor | | | | | | [place], [place] | | | | | | [address] | | | | | | [phone] | | | +--------+---------+ + + + [...] + + documented as of this encounter Last Filed Vital Signs + + + + + | Vital Sign | Reading | Time Taken | Comments | + + + + + | Blood Pressure | 126/65 | 05/07/2008 12:28 PM | | | | | PST | | + + + + + | Pulse | 94 | 05/07/2008 12:28 PM | | | | | PST | | + + + + + | Temperature | - | - | | + + + + + | Respiratory Rate | 20 | 05/07/2008 12:28 PM | | | | | PST | | + + + + + | Oxygen Saturation | 96% | 05/07/2008 12:28 PM | | | | | PST | | + + + + + | Inhaled Oxygen | - | - | | | Concentration | | | | + + + + + | Weight | 74.8 kg (165 lb) | 05/07/2008 12:28 PM | | | | | PST | | + + + + + | Height | 158.8 cm (5' 2.5") | 05/07/2008 12:28 PM | | | | | PST | | + + + + + | Body Mass Index | 29.7 | 05/07/2008 12:28 PM | | | | | PST | | + + + + + documented in this encounter Patient Instructions Patient Instructions Andrew Mendez PA - 05/07/2008 12:33 PM PSTRegistration Locations (pl ease check in at one of the following registration desks prior to surgery) For surgeries scheduled to take place on the [place] at the [facility]: Surgeries scheduled in the [facility] ( [facility]): registration is located on the 4th floor of [facility] (Day Surgery). Surgeries scheduled in the [facility]: registration is located on the 9th floor. Surgeries scheduled in [facility]: registration is located on the 6th floor. Surgeries scheduled in the [facility]: registration is located i n the [facility] on the first floor. For surgeries scheduled to take place at the [facility]: registration is l ocated on the 4th floor (Surgery Center). Important Information Due to the increased prevalence of pests in our community, we are asking patients to partne r with us to keep our hospital clean. If you have noticed bugs or other pests in your home, on your belongings or on your body, please contact your doctor's office prior to your admis isis. For your safety and protection, please limit what you bring to the hospital. All valuables should be left at home. This includes pillows, blankets, clothing, purses, wallets, money an d jewelry. Patients may not bring personal electronics into the hospital, including hairdry ers, electric [place], radios and CD players. If you use specialized medical equipment at [facility], please check with your provider before bringing it with you into the hospital. Registration Process for all Admissions/Surgeries Please bring your insurance card(s) with you and be prepared to pay any co-payment, co-insu qing or deposit that may be required. Once you arrive at the registration desk, you will be interviewed by a Patient Access Servi ce Specialist (THU). Demographics will be verified (example: name, date of , Social Se curity Number, address, insurance). You will be asked to sign some paperwork: Terms and Conditions of Service, Notice of Privac y Practices Acknowledgement and Genetic Testing Opt Out. You will be given some paperwork: copies of any forms signed by you, Patient Rights, Respon sibilities and Safety, Understanding Advance Directives, and Smoking Cessation Brochure. documented in this encounter Progress Notes Andrew Mendez PA - 05/07/2008 1:00 PM PST Addended by: ANDREW MENDEZ on: 05/07/2008 1:00:4 2 PM Modules accepted: Orders ndrew Mendez PA - 05/07/2008 12:33 PM PST Pre-Procedure History and Physical Date of Admission: 05-11-08 HISTORY: Roman Casas is a 57 y.o. female diagnosed with right breast cancer in 2006 by parth jiménez. Treatment thus far includes right total mastectomy and sentinel lymph node biopsy. Pt has not had radiation and has not had chemotherapy and there are no plans in the future. Cu rrently on Arimadex. CURRENT PROBLEM LIST: There are no active problems to display for this patient. Past Medical History Diagnosis Date Peripheral Vascular Disease Hypertension Dyslipidemia Breast Cancer GERD (Gastroesophageal Reflux Disease) Past Surgical History Procedure Date Hx mastectomy Angioplasty, renal, bilateral Hx hysterectomy MEDICATIONS: Current outpatient prescriptions Medication Sig Dispense Refill ARIMIDEX 1 mg Oral Tablet take 1 tablet (1 mg) by oral route once daily CALCIUM + D 600 (1,500)-200 mg-unit Oral Tablet 1 tab p.o. twice daily CRESTOR 20 mg Oral Tablet take 1 tablet (20 mg) by oral route once daily DIOVAN ORAL 1 tab p.o. qd FLEXERIL 5 mg Oral Tablet take 1 tablet (5 mg) by oral route 3 times per day gabapentin 300 mg Oral Capsule take 1 capsule (300 mg) by oral route 3 times per day MULTI-VITAMIN Oral Tablet take 1 tablet by oral route once daily with food NEXIUM PACKET 40 mg Oral Susp,Delayed Release for Recon take 1 packet (40 mg) by oral r oute 2 times per day mixed with 15 ml water, let sit 2-3 minutes, stir and drink within 30 m inutes PERCOCET 5-325 mg Oral Tablet take 1 tablet by oral route every 6 hours as needed potassium chloride SR 20 mEq Oral Tab Sust.Rel. Particle/Crystal take 1 tablet (20 meq) by oral route once daily with food spironolactone 25 mg Oral Tablet take 1 tablet (25 mg) by oral route once daily TRICOR 145 mg Oral Tablet take 1 tablet (145 mg) by oral route once daily TYLENOL PM ORAL 2 tab p.o. qhs. VITAMIN D ORAL 1 tab p.o. twice daily Allergies Allergen Reactions Sulfa (Sulfonamides) Hives Penicillin G Hives Tylenol-codeine #3 (Acetaminophen-codeine) Itching Vicodin (Hydrocodone-acetaminophen) Nausea/Vomiting FAMILY HISTORY: No family history on file. REVIEW OF SYSTEMS: denies fever, chills, N&V,CP,SOB,dysuria PHYSICAL EXAM: VITALS: Visit Vitals Item Reading BP 126/65 Pulse 94 Resp 20 Ht 1.588 m (5' 2.5") Wt 74.844 kg (165 lb) SpO2 96% HEENT: See Notes: PERRL, EOMI NECK: See Notes: supple, No LAD CHEST/LUNGS: See Notes: CTA bilat, BS equal HEART: See Notes: RRR, No mgr's ABDOMEN: See Notes: Soft, NT,ND + BS BREASTS:Right Breast: Surgically absent Left Breast: Sternal notch to nipple distance: 23 cm Breast width: 21 cm Mid-line to nipple: 13cm Ptosis: gr 2 Palpation reveals a discrete 1 cm subcutaneous cyst with an overlying sinus of the left sofy ast skin medially bilaterally. No right chest wall masses. There is no adenopathy or nipple discharge. BACK: Normal EXTREMITIES: Normal NEUROLOGICAL: See Notes: - Grossly intact, gait normal PROVISIONAL DIAGNOSIS: acquired absence of breast PLANNED COURSE OF ACTION: right breast reconstruction with TRAM . Roman Flores reports she initi ally discussed desired size of "B', but would like to become a "C" cup. She will discuss thi s the morning of surgery with Dr nayak per Dr Huey PORRAS: A PARQ session was held. 12:5 7 PM PSTdocumented in this encounter Plan of Treatment Not on filedocumented as of this encounter Results APTT (ACT. PART. THROMBO TIME) (05/07/2008 2:08 PM PST) + + + + + + | Component | Value | Ref Range | Performed | Pathologist | | | | | At | Signature | + + + + + + | APTT | 30.2Comment: | 26.0 - 36.0 | [facility] | | | | APTT | seconds | DEPARTMENT | | | | Therapeutic | | OF | | | | Range | | PATHOLOGY | | | | | | | | | | (75-120) | | | | | | sec | | | | | | Heparin levels of | | | | | | 0.35-0.7 U/mL | | | | + + + + + + + + | Specimen | + + | Blood - Blood | + + + + + + + | Performing | Address | City/State/Zipcode | Phone Number | | Organization | | | | + + + + + | [facility] | [address] | [place] [address] | | | PATHOLOGY | [address] | | | + + + + + | [facility] | [address] | [place] [address] | | | PATHOLOGY | [address] | | | + + + + + INR (05/07/2008 2:08 PM PST) + + + + + + | Component | Value | Ref Range | Performed | Pathologist | | | | | At | Signature | + + + + + + | INR | 1.06Comment: | 0.90 - 1.20 INR | [facility] | | | | INR | | DEPARTMENT | | | | Therapeutic ranges for | | OF | | | | full | | PATHOLOGY | | | | anticoagulation: | | | | | | INR for Venous | | | | | | Thromboembolism | | | | | | | | | | | | (2.0-3.0) | | | | | | INR INR for | | | | | | most patients with mech. | | | | | | | | | | | | valves (2.5-3.5) | | | | | | INR | | | | + + + + + + + + | Specimen | + + | Blood - Blood | + + + + + + + | Performing | Address | City/State/Zipcode | Phone Number | | Organization | | | | + + + + + | [facility] | [address] | [place] [address] | | | PATHOLOGY | [address] | | | + + + + + | [facility] | [address] | [place] [address] | | | PATHOLOGY | [address] | | | + + + + + CBC, WITH DIFFERENTIAL (05/07/2008 2:08 PM PST) + +-------+ + + + | Component | Value | Ref Range | Performed | Pathologist | | | | | At | Signature | + +-------+ + + + | WHITE CELL | 7.1 | 4.4 - 11.0 K/cu | [facility] | | | COUNT | | mm | DEPARTMENT | | | | | | OF | | | | | | PATHOLOGY | | + +-------+ + + + | RED CELL | 4.82 | 4.00 - 5.20 | [facility] | | | COUNT | | M/cu mm | DEPARTMENT | | | | | | OF | | | | | | PATHOLOGY | | + +-------+ + + + | HEMOGLOBIN | 14.3 | 12.0 - 16.0 | [facility] | | | | | g/dL | DEPARTMENT | | | | | | OF | | | | | | PATHOLOGY | | + +-------+ + + + | HEMATOCRIT | 41.4 | 36.0 - 46.0 % | [facility] | | | | | | DEPARTMENT | | | | | | OF | | | | | | PATHOLOGY | | + +-------+ + + + | MCV | 86.0 | 80.0 - 96.0 fL | [facility] | | | | | | DEPARTMENT | | | | | | OF | | | | | | PATHOLOGY | | + +-------+ + + + | MCHC | 34.4 | 33.4 - 35.5 | [facility] | | | | | g/dL | DEPARTMENT | | | | | | OF | | | | | | PATHOLOGY | | + +-------+ + + + | RDW | 13.3 | 11.5 - 15.0 % | [facility] | | | | | | DEPARTMENT | | | | | | OF | | | | | | PATHOLOGY | | + +-------+ + + + | PLATELET | 201 | 150 - 400 K/cu | [facility] | | | COUNT | | mm | DEPARTMENT | | | | | | OF | | | | | | PATHOLOGY | | + +-------+ + + + + + | Specimen | + + | Blood - Blood | + + + + + + + | Performing | Address | City/State/Zipcode | Phone Number | | Organization | | | | + + + + + | [facility] | [address] | [place] [address] | | | PATHOLOGY | [address] | | | + + + + + | [facility] | [address] | [place] [address] | | | PATHOLOGY | [address] | | | + + + + + TYPE AND SCREEN (05/07/2008 1:34 PM PST) + + + + + + | Component | Value | Ref Range | Performed | Pathologist | | | | | At | Signature | + + + + + + | ABO GROUP | O | | [facility] | | | | | | DEPARTMENT | | | | | | OF | | | | | | PATHOLOGY | | + + + + + + | RH TYPE | Positive | | [facility] | | | | | | DEPARTMENT | | | | | | OF | | | | | | PATHOLOGY | | + + + + + + | Antibody | Negative | | [facility] | | | Screen | | | DEPARTMENT | | | | | | OF | | | | | | PATHOLOGY | | + + + + + + + + | Specimen | + + | Blood - Blood | + + + + + + + | Performing | Address | City/State/Zipcode | Phone Number | | Organization | | | | + + + + + | [facility] | [address] | [place] [address] | | | PATHOLOGY | [address] | | | + + + + + | [facility] | [address] | [place] [address] | | | PATHOLOGY | [address] | | | + + + + + documented in this encounter Visit Diagnoses + + | Diagnosis | + + | Acquired absence of breast Acquired absence of breast and nipple | + + | Other specified pre-operative examination | + + documented in this encounter
--- OUTSIDE RECORDS SUMMARY | ~2018-09-10 | XMS | Encounter Summary ---
Demographics + + + | Address | [address] | | | [place] [address] | + + + | Home Phone | | + + + | Preferred Language | Unknown | + + + | Marital Status | | + + + | Mandaen Affiliation | NON | + + + | Race | White | + + + | Ethnic Group | Not or | + + + Author + + + | Author | [facility] | + + + | Organization | [facility] | + + + | Address | Unknown | + + + | Phone | Unavailable | + + + Support + + + + + | Name | Relationship | Address | Phone | + + + + + | Ted Patterson | ECON | [address] | | | | | [place] | | | | | [address] | | + + + + + | Carmen Renteria | ECON | [address] | | | | | [place] | | | | | [address] | | + + + + + | Vince Loredo | ECON | [place] | | + + + + + Care Team Providers + +------+ + | Care Manager Name | Role | Phone | + +------+ + | Adrián Gregory MD | PCP | | + +------+ + Encounter Details +--------+ + + + + | Date | Type | Department | Care Team | Description | +--------+ + + + + | 02/02/ | Office | [facility] [address] | Erna Rainey, | Progress Note | | 2015 | Visit-Trans | [address] | MD [address] | | | | [address] | [place] | [place] | | | | | [address] | [address] | | | | | | [phone] | | | | | | | [...] encounter Progress Notes Erna Rainey MD - 02/02/2015 3:18 PM [facility] [address] [place] [id number] [address] DATE OF SERVICE: February 02, 2015 DIAGNOSIS: Breast cancer stage I (T1b N0 M0). CURRENT TREATMENT: Anastrozole 1 mg p.o. daily. INTERVAL HISTORY: Roman Flores returned today for 6-month followup. She was diagnosed in April 2007. She elected to continue anastrozole beyond 5 years. She is overall doing well. She carries a diagnosis of osteopenia. Her bone density has being followed. She is on calcium and vitamin D. PHYSICAL EXAMINATION: VITAL SIGNS: Her weight today is 178.8 pounds, blood pressure 136/81, pulse of 99, temperature 98.6, saturation 98%. GENERAL APPEARANCE: She appears to be comfortable and not in acute distress. HEENT: Sclerae nonicteric. NECK: Supple. LUNGS: Clear. HEART: Heart rate is regular. BREASTS: TRAM flap reconstruction of the right breast. There are no palpable masses bilaterally. No axillary palpable lymphadenopathies. Her surgical scar is well-healed. LABORATORY DATA: WBC of 5.1, hemoglobin 13.2, platelet count 186,000. CMP unremarkable. RADIOGRAPHIC DATA: Her mammogram January 2015 showed negative findings. IMPRESSION: 1. No evidence of breast cancer recurrence. 2. Arthralgia in her lower extremities due to anastrozole. 3. Osteopenia, stable per last bone density study. PLAN: 1. Would like to continue anastrozole. 2. Gave her new prescription of Percocet. 3. Plan to have her come back in 6 months with laboratory studies. 4. Plan to perform another bone density study later next year. PAKO/MedQ ROMAN PATTERSON [id number] : 52 [id number] SERVICE DATE: 02/02/15 /[id number] cc: Kyle Garcia MD Electronically Signed 02/03/15 0944 X MD LEONARDO Brown LEE ANN [id number] : 52 [id number] SERVICE DATE: 02/02/15 9 :39 AM PDTdocumented in this encounter Plan of Treatment Not on filedocumented as of this encounter Visit Diagnoses Not on filedocumented in this encounter"
--- OUTSIDE RECORDS SUMMARY | ~2018-09-10 | XMS | Encounter Summary ---
Demographics + + + | Address | [address] | | | [place] [address] | + + + | Home Phone | | + + + | Preferred Language | Unknown | + + + | Marital Status | | + + + | Caodaism Affiliation | NON | + + + | Race | White | + + + | Ethnic Group | Not or | + + + Author + + + | Author | [facility] | + + + | Organization | [facility] | + + + | Address | Unknown | + + + | Phone | Unavailable | + + + Support + + + + + | Name | Relationship | Address | Phone | + + + + + | Ted Patterson | ECON | [address] | | | | | [place] | | | | | [address] | | + + + + + | Carmen Renteria | ECON | [address] | | | | | [place] | | | | | [address] | | + + + + + | Vince Loredo | ECON | [place] | | + + + + + Care Team Providers + +------+ + | Care Sailing Master Name | Role | Phone | + +------+ + | Adrián Gregory MD | PCP | | + +------+ + Encounter Details +--------+ + + + + | Date | Type | Department | Care Team | Description | +--------+ + + + + | 06/27/ | Office | [facility] | Erna Rainey, | Progress Note | | 2010 | Visit-Trans | [address] | MD [address] | | | | [address]ed | [place] | [place] | | | | | [address] | [address] | | | | | | [phone] | | | | | | | [...] encounter Progress Notes Erna Rainey MD - 06/27/2010 9:35 PM [facility] [address] [place] [id number] [address] DATE OF SERVICE: June 27, 2010 DIAGNOSIS: Stage I (T1b N0 M0) breast cancer. TREATMENT: Arimidex 1 mg p.o. daily. INTERVAL HISTORY: The patient returned today for followup of her breast cancer. She stated that, for the past 2-3 months, she has had a spot in her right upper back that is particularly hurting. She just woke up with the pain and it lasted for about 2 weeks and it has now started to get a bit better. She has some ongoing knee pain but it is tolerable. PHYSICAL EXAMINATION: VITAL SIGNS: She weighs 166.8 pounds. Blood pressure 111/70, pulse 86, temperature 98, saturation 96%. GENERAL APPEARANCE: She appears comfortable and not in acute distress. HEENT: Sclerae nonicteric. No facial asymmetry. NECK: Supple, without palpable mass. LUNGS: Clear. HEART: Rate is regular. BREAST: Exam reveals reconstructed breast with TRAM flap on the right side, there is quite extensive scarring but no masses. Left breast exam is unremarkable. No axillary palpable lymphadenopathies bilaterally. ABDOMEN: Soft and nontender. EXTREMITIES: Without edema or cyanosis. MUSCULOSKELETAL: On the right upper back medial to her scapula there is a spot of tenderness, it appears to be the posterior aspect of a rib but no obvious visual abnormalities in that area. IMPRESSION: 1. History of stage I breast cancer. 2. Pain in the right upper back. PLAN: 1. Continue Arimidex as current. 2. Obtain a bone scan within a couple weeks. 3. I will continue [id number] followup if bone scan negative. XF/MedQ /[id number] Electronically Signed 10/12/10 1014 X MD LEONARDO Brown LEE ANN [id number] : [id number] SERVICE DATE: 06/27/10 9 :10 AM PDTdocumented in this encounter Plan of Treatment Not on filedocumented as of this encounter Visit Diagnoses Not on filedocumented in this encounter"
--- OUTSIDE RECORDS SUMMARY | ~2018-09-10 | XMS | Encounter Summary ---
Demographics + + + | Address | [address] | | | [place] [address] | + + + | Home Phone | | + + + | Preferred Language | Unknown | + + + | Marital Status | | + + + | Taoist Affiliation | Unknown | + + + | Race | Unknown | + + + | Ethnic Group | Unknown | + + + Author + + + | Author | [facility] | + + + | Organization | [facility] | + + + | Address | Unknown | + + + | Phone | Unavailable | + + + Support + + + + + | Name | Relationship | Address | Phone | + + + + + | Ted Casas | ECON | [address] | | | | | [place] | | | | | [address] | | + + + + + | Jersey Marroquin | ECON | [place] | | | | | [address] | | + + + + + Care Team Providers + +------+ + | Care Flight Radio Officer Name | Role | Phone | + +------+ + | Joselin Jose PA-C | PCP | | + +------+ + Reason for Referral Physical Medicine (Routine) + + + + + + + | Status | Reason | Specialty | Diagnoses / | Referred By | Referred To | | | | | Procedures | Contact | Contact | + + + + + + + | Pending | Specialty | Physical | Diagnoses | Nasim Shell | | Review | Services | Therapy | Achilles | MD Wally | KYLE | | | Required | | tendon pain | [address] | MEDICAL | | | | | | [facility] | [place] | | | | | | Drive | PHYSICAL | | | | | | [facility] | THERAPY [address] | | | | | | [address] | [address] | | | | | | Phone: | [place], [place] | | | | | | [phone] | [address] | | | | | | Fax: | Phone: | | | | | | [phone] | [phone] | | | | | | | Fax: | | | | | | | [phone] | + + + + + + + Reason for Visit + + + | Reason | Comments | + + + | Follow-up | MRI results | + + + EEG/EMG (Routine) + +--------+ + + + + | Status | Reason | Specialty | Diagnoses / | Referred By | Referred To | | | | | Procedures | Contact | Contact | + +--------+ + + + + | Authorized | | Physical | Diagnoses | Cody, | Suleman, | | | | Medicine and | Muscle | Roxana Stone, | MD Wally | | | | Rehabilitatio | weakness of | DPM [address] | | | | n | lower | [address] | Drive | | | | | extremity | [place], | [place], [place] | | | | | | [place] [address] | [address] Phone: | | | | | | Phone: | [phone] | | | | | | [phone] | Fax: | | | | | | Fax: | [phone] | | | | | | [phone] | | + +--------+ + + + + Encounter Details +--------+---------+ + + + | Date | Type | Department | Care Team | Description | +--------+---------+ + + + | 09/05/ | Office | [facility] | Wally Shell, | Achilles tendon pain | | 2019 | Visit | [facility] | MD [address] | (Primary Dx); | | | | [address] | Drive [place], [place] | Lumbosacral | | | | [place] | [address] | radiculopathy at L5; | | | | [address] | | Polyneuropathy | | | | [phone] | | | +--------+---------+ + + + Social History + +-------+ +--------+ + [...] on file | | + + + as of this encounter Last Filed Vital Signs + +---------+ + | Vital Sign | Reading | Time Taken | + +---------+ + | Blood Pressure | 129/78 | 09/05/2018 8:22 AM PDT | + +---------+ + | Pulse | 103 | 09/05/2018 8:22 AM PDT | + +---------+ + | Temperature | - | - | + +---------+ + | Respiratory Rate | - | - | + +---------+ + | Oxygen Saturation | 95% | 09/05/2018 8:22 AM PDT | + +---------+ + | Inhaled Oxygen | - | - | | Concentration | | | + +---------+ + | Weight | - | - | + +---------+ + | Height | - | - | + +---------+ + | Body Mass Index | - | - | + +---------+ + in this encounter Progress Notes Wally Shell MD - 09/05/2018 8:15 AM PDTReview of Systems: Since we last saw you, have been having any problems with: A) Fevers or chills? Negative B) Swollen Joints? some C) Mood? No D) Heart or circulation? Negative E) Breathing? Negative F) Stomach or intestines? Negative G) Ears, nose or throat? Negative H) Skin? Negative I) Eyes? Negative J) Bleeding? Negative Returns at my request Chief complaint lately of significant left Achilles tendon pain with use. She also mention s some achy low back pain with walking (including radiation to her hips) and some occasional weakness in the left foot, creating gait instability and falls. Symptoms are severe, constant. Pain intensity up to 10/10. Review of systems: per HPI, otherwise a 10 point ROS was performed Past medical, family and social history were reviewed today as documented on the electronic medical record. No changes. PHYSICAL EXAM CONSTITUTIONAL: appears fairly uncomfortable PSYCHIATRIC: Appropriate mood and affect ENT: Normal inspection. No hearing aids. No nasal drainage. EYES: Normal inspection. No conjunctival erythema. No exudate. RESPIRATORY: Breathing easily. No sign of respiratory distress CARDIOVASCULAR: Intact distal perfusion. No edema. SKIN: No rash. Normal color. No erythema or breakdown. NEURO: Normal gait and station. Moving well. MUSCULOSKELETAL: Unremarkable IMPRESSION/REPORT/PLAN: DATA Previous EMG showed significant distal sensory motor polyneuropathy and a suspicion for pos sible superimposed L5 or S1 radiculopathy. RISK High risk: presenting problem is a chronic illness with severe exacerbation and/or progress ion IMPRESSION 1. Lumbar spondylosis with left L5 radiculopathy. 2. Distal sensorimotor polyneuropathy 3. Focal left Achilles tendon insertional pain, new problem DISCUSSION / RECOMMENDATIONS 1. Reviewed most recent MRI results with her. Do not see urgent indication for an epidura l injection. 2. Begin physical therapy for her insertional Achilles tendon pain 3. Begin alpha lipoic acid and SOD as neuroprotective antioxidants to help with her periph eral neuropathy 4. Begin Cymbalta Follow-up in several weeks. Future options include epidural if her radicular symptoms radha mancera Would also consider testing her for MTHFR mutations. in this encounter Plan of Treatment +--------+---------+ + + + | Date | Type | Specialty | Care Team | Description | +--------+---------+ + + + | 10/21/ | Office | Physical Medicine | Wally Shell, | | | 2019 | Visit | and Rehabilitation | MD [address] | | | | | | Drive [place], [place] | | | | | | [address] | | | | | | | | +--------+---------+ + + + + +--------+ + + | Name | Priori | Associated Diagnoses | Order Schedule | | | ty | | | + +--------+ + + | Ambulatory referral to Physical | Routin | Achilles tendon | Ordered: 09/05/2018 | | Therapy, Eval and Treat | e | pain | | + +--------+ + + as of this encounter Visit Diagnoses + + | Diagnosis | + + | Achilles tendon pain - Primary | + + | Achilles bursitis or tendinitis | + + | Lumbosacral radiculopathy at L5 | + + | Thoracic or lumbosacral neuritis or radiculitis, unspecified | + + | Polyneuropathy | + + | Unspecified hereditary and idiopathic peripheral neuropathy | + +"
--- OUTSIDE RECORDS SUMMARY | ~2018-09-10 | XMS | Encounter Summary ---
Demographics + + + | Address | [address] | | | [place] [address] | + + + | Home Phone | | + + + | Preferred Language | Unknown | + + + | Marital Status | | + + + | Sabianism Affiliation | NON | + + + | Race | White | + + + | Ethnic Group | Not or | + + + Author + + + | Author | [facility] | + + + | Organization | [facility] | + + + | Address | Unknown | + + + | Phone | Unavailable | + + + Support + + + + + | Name | Relationship | Address | Phone | + + + + + | Ted Casas | ECON | [address] | | | | | [place] | | | | | [address] | | + + + + + | Carmen Renteria | ECON | [address] | | | | | [place] | | | | | [address] | | + + + + + | Vince Loredo | ECON | [place] | | + + + + + Care Team Providers + +------+ + | Care Interior Decorator Name | Role | Phone | + +------+ + | Adrián Gregory MD | PCP | | + +------+ + Encounter Details +--------+ + + + + | Date | Type | Department | Care Team | Description | +--------+ + + + + | 06/27/ | Results | [facility] | Erna Rainey, | | | 2010 | Only | Department | MD [address] | | | | | | [place] | | | | | | [address] | | | | | | [phone] | | | | | | | [...] | CBC W/DIFF, REFLEX | Routin | 06/27/2010 | | Results for this | | | e | 1:26 PM | | procedure are in the | | | | PDT | | results section. | + +--------+ + + + | COMPLETE METABOLIC | Routin | 06/27/2010 | | Results for this | | SET | e | 1:26 PM | | procedure are in the | | (NA,K,CL,CO2,BUN,CRE | | PDT | | results section. | | AT,GLUC,CA,AST,ALT,B | | | | | | VINCE TOTAL,ALK | | | | | | PHOS,ALB,PROT TOTAL) | | | | | + +--------+ + + + documented in this encounter Results CBC W/DIFF, REFLEX (06/27/2010 1:26 PM PDT) + +---------+ + + + | Component | Value | Ref Range | Performed | Pathologist | | | | | At | Signature | + +---------+ + + + | WHITE BLOOD | 7.0 | 4.3 - 11.0 X10 | [facility] | | | CELL COUNT | | 3/ul | A MEDICAL | | | | | | CENTER | | + +---------+ + + + | HEMOGLOBIN | 13.7 | 12.0 - 16.0 | [facility] | | | | | g/dL | A MEDICAL | | | | | | CENTER | | + +---------+ + + + | RED BLOOD | 4.71 | 4.2 - 5.4 X10 | [facility] | | | CELL COUNT | | 6/uL | A MEDICAL | | | | | | CENTER | | + +---------+ + + + | HEMATOCRIT | 40.0 | 38.0 - 47.0 % | [facility] | | | | | | A MEDICAL | | | | | | CENTER | | + +---------+ + + + | MCV | 85.0 | 82 - 100 fl | [facility] | | | | | | A MEDICAL | | | | | | CENTER | | + +---------+ + + + | MCH | 29.2 | 28.0 - 32.0 pg | [facility] | | | | | | A MEDICAL | | | | | | CENTER | | + +---------+ + + + | MCHC | 34.4 | 32 - 36 g/dL | [facility] | | | | | | A MEDICAL | | | | | | CENTER | | + +---------+ + + + | RDW | 12.7 | 12 - 15 fL | [facility] | | | | | | A MEDICAL | | | | | | CENTER | | + +---------+ + + + | PLATELET | 197 | 150 - 450 X10 3 | [facility] | | | COUNT | | | A MEDICAL | | | | | | CENTER | | + +---------+ + + + | MPV | 7.7 (L) | 9.0 - 12.0 fL | [facility] | | | | | | A MEDICAL | | | | | | CENTER | | + +---------+ + + + | NEUTROPHIL | 53.9 | 40 - 80 % | [facility] | | | % | | | A MEDICAL | | | | | | CENTER | | + +---------+ + + + | NEUTROPHIL | 3.8 | 1.9 - 8.0 x10 | [facility] | | | # | | 3/UL | A MEDICAL | | | | | | CENTER | | + +---------+ + + + | LYMPHOCYTE | 38.6 | 20 - 50 % | [facility] | | | % | | | A MEDICAL | | | | | | CENTER | | + +---------+ + + + | LYMPHOCYTE | 2.7 | 0 - 6 x10 3/UL | [facility] | | | # | | | A MEDICAL | | | | | | CENTER | | + +---------+ + + + | EOS % | 2.1 | 0 - 5 % | [facility] | | | | | | A MEDICAL | | | | | | CENTER | | + +---------+ + + + | EOS # | 0.2 | 0 - 0.3 x10 | [facility] | | | | | 3/UL | A MEDICAL | | | | | | CENTER | | + +---------+ + + + | BASO % | 0.7 | 0 - 1 % | [facility] | | | | | | A MEDICAL | | | | | | CENTER | | + +---------+ + + + | BASO # | 0.1 | 0 - 0.1 x10 | [facility] | | | | | 3/UL | A MEDICAL | | | | | | CENTER | | + +---------+ + + + | MONOCYTE % | 4.7 | 2 - 10 % | [facility] | | | | | | A MEDICAL | | | | | | CENTER | | + +---------+ + + + | MONOCYTE # | 0.3 | 0 - 0.6 x10 | [facility] | | | | | 3/UL | A MEDICAL | | | | | | CENTER | | + +---------+ + + + | BANDS % | 0.7 | 0 - 7 % | [facility] | | | | | | A MEDICAL | | | | | | CENTER | | + +---------+ + + + | BANDS # | 0.1 | 0.00 - 0.70 x10 | [facility] | | | | [...] | + + + + + | [facility] | And | [place] [address] | | | [facility] | Street | | | + + + + + COMPLETE METABOLIC SET (NA,K,CL,CO2,BUN,CREAT,GLUC,CA,AST,ALT,BILI TOTAL,ALK PHOS,ALB,PROT TOTAL) (06/27/2010 1:26 PM PDT) + + + + + + | Component | Value | Ref Range | Performed | Pathologist | | | | | At | Signature | + + + + + + | SODIUM, | 139 | 137 - 146 MEQ/L | [facility] | | | PLASMA | | | A MEDICAL | | | (LAB) | | | CENTER | | + + + + + + | POTASSIUM, | 4.1 | 3.5 - 5.2 MEQ/L | [facility] | | | PLASMA | | | A MEDICAL | | | (LAB) | | | CENTER | | + + + + + + | CO2 | 26 | 22 - 28 MEQ/L | [facility] | | | | | | A MEDICAL | | | | | | CENTER | | + + + + + + | CHLORIDE, | 105 | 98 - 106 MEQ/L | [facility] | | | PLASMA | | | A MEDICAL | | | (LAB) | | | CENTER | | + + + + + + | GLUCOSE, | 126 (H) | 70 - 105 MG/DL | [facility] | | | PLASMA | | | A MEDICAL | | | (LAB) | | | CENTER | | + + + + + + | BUN, PLASMA | 15 | 8 - 30 MG/DL | [facility] | | | (LAB) | | | A MEDICAL | | | | | | CENTER | | + + + + + + | CREATININE | 0.57 (L) | 0.6 - 1.1 MG/DL | [facility] | | | PLASMA | | | A MEDICAL | | | (LAB) | | | CENTER | | + + + + + + | BUN/CREATIN | 26 (H) | 6 - 20 RATIO | [facility] | | | INE RATIO | | | A MEDICAL | | | | | | CENTER | | + + + + + + | CALCIUM, | 10.2 | 8.5 - 10.8 | [facility] | | | PLASMA | | MG/DL | A MEDICAL | | | (LAB) | | | CENTER | | + + + + + + | AST(SGOT) | 32 | 10 - 41 U/L | [facility] | | | | | | A MEDICAL | | | | | | CENTER | | + + + + + + | ALT (SGPT) | 31 | 7 - 51 U/L | [facility] | | | | | | A MEDICAL | | | | | | CENTER | | + + + + + + | ALK PHOS | 53 | 40 - 180 U/L | [facility] | | | | | | A MEDICAL | | | | | | CENTER | | + + + + + + | TOTAL | 7.7 | 6.7 - 8.5 G/DL | [facility] | | | PROTEIN, | | | A MEDICAL | | | PLASMA | | | CENTER | | | (LAB) | | | | | + + + + + + | ALBUMIN, | 4.5 | 3.5 - 5.0 G/DL | [facility] | | | PLASMA | | | A MEDICAL | | | (LAB) | | | CENTER | | + + + + + + | BILIRUBIN | 0.3 | 0.2 - 1.6 MG/DL | [facility] | | | TOTAL | | | A MEDICAL | | | | | | CENTER | | + + + + + + | ESTIMATED | >60.0 | >60 | [facility] | | | GFR | | | A MEDICAL | | | | | | CENTER | | + + + + + + | FASTING? | UNK | HR | [facility] | | | [...] | + + + + + | [facility] | | [place] [address] | | | [facility] | [facility] | | | + + + + + documented in this encounter Visit Diagnoses Not on filedocumented in this encounter"
--- OUTSIDE RECORDS SUMMARY | ~2018-09-10 | XMS | Encounter Summary ---
Demographics + + + | Address | [address] | | | [place] [address] | + + + | Home Phone | | + + + | Preferred Language | Unknown | + + + | Marital Status | | + + + | Jewish Affiliation | NON | + + + | Race | White | + + + | Ethnic Group | Not or | + + + Author + + + | Author | [facility] | + + + | Organization | [facility] | + + + | Address | Unknown | + + + | Phone | Unavailable | + + + Support + + + + + | Name | Relationship | Address | Phone | + + + + + | Ted Casas | ECON | [address] | | | | | [place] | | | | | [address] | | + + + + + | Carmen Renteria | ECON | [address] | | | | | [place] | | | | | [address] | | + + + + + | Vince Loredo | ECON | [place] | | + + + + + Care Team Providers + +------+ + | Care Money Market Clerk Name | Role | Phone | + +------+ + | Adrián Gregory MD | PCP | | + +------+ + Encounter Details +--------+ + + + + | Date | Type | Department | Care Team | Description | +--------+ + + + + | 09/02/ | Results | [facility] | Erna Rainey, | | | 2008 | Only | Department | MD [address] | | | | | | [address] [place] | | | | | | [address] | | | | | | [phone] | | | | | | | [...] | CBC W/DIFF, REFLEX | Routin | 09/02/2008 | | Results for this | | | e | 12:41 PM | | procedure are in the | | | | PDT | | results section. | + +--------+ + + + | COMPLETE METABOLIC | Routin | 09/02/2008 | | Results for this | | SET | e | 12:41 PM | | procedure are in the | | (NA,K,CL,CO2,BUN,CRE | | PDT | | results section. | | AT,GLUC,CA,AST,ALT,B | | | | | | VINCE TOTAL,ALK | | | | | | PHOS,ALB,PROT TOTAL) | | | | | + +--------+ + + + documented in this encounter Results CBC W/DIFF, REFLEX (09/02/2008 12:41 PM PDT) + + + + + + | Component | Value | Ref Range | Performed | Pathologist | | | | | At | Signature | + + + + + + | WHITE BLOOD | 7.2 | 4.3 - 11.0 X10 | [facility] | | | CELL COUNT | | 3/ul | A MEDICAL | | | | | | CENTER | | + + + + + + | HEMOGLOBIN | 14.0 | 12.0 - 16.0 | [facility] | | | | | g/dL | A MEDICAL | | | | | | CENTER | | + + + + + + | RED BLOOD | 5.07 | 4.2 - 5.4 X10 | [facility] | | | CELL COUNT | | 6/uL | A MEDICAL | | | | | | CENTER | | + + + + + + | HEMATOCRIT | 41.8 | 38.0 - 47.0 % | [facility] | | | | | | A MEDICAL | | | | | | CENTER | | + + + + + + | MCV | 83.0 | 82 - 100 fl | [facility] | | | | | | A MEDICAL | | | | | | CENTER | | + + + + + + | MCH | 27.6 (L) | 28.0 - 32.0 pg | [facility] | | | | | | A MEDICAL | | | | | | CENTER | | + + + + + + | MCHC | 33.5 | 32 - 36 g/dL | [facility] | | | | | | A MEDICAL | | | | | | CENTER | | + + + + + + | RDW | 13.7 | 12 - 15 fL | [facility] | | | | | | A MEDICAL | | | | | | CENTER | | + + + + + + | PLATELET | 215 | 150 - 450 X10 3 | [facility] | | | COUNT | | | A MEDICAL | | | | | | CENTER | | + + + + + + | MPV | FINANCIAL SERVICES MANAGER | 9.0 - 12.0 fL | [facility] | | | | | | A MEDICAL | | | | | | CENTER | | + + + + + + | NEUTROPHIL | 52.0 | 40 - 80 % | [facility] | | | % | | | A MEDICAL | | | | | | CENTER | | + + + + + + | NEUTROPHIL | 3.7 | 1.9 - 8.0 x10 | [facility] | | | # | | 3/UL | A MEDICAL | | | | | | CENTER | | + + + + + + | LYMPHOCYTE | 37.9 | 20 - 50 % | [facility] | | | % | | | A MEDICAL | | | | | | CENTER | | + + + + + + | LYMPHOCYTE | 2.7 | 0 - 6 x10 3/UL | [facility] | | | # | | | A MEDICAL | | | | | | CENTER | | + + + + + + | EOS % | 2.5 | 0 - 5 % | [facility] [...] + + + | BASO % | 0.9 | 0 - 1 % | [facility] [...] + + + | MONOCYTE % | 6.7 | 2 - 10 % | [facility] | | | | | | A MEDICAL | | | | | | CENTER | | + + + + + + | MONOCYTE # | 0.5 | 0 - 0.6 x10 | [facility] | | | | | 3/UL | A MEDICAL | | | | | | CENTER | | + + + + + + | BANDS % | 0.9 | 0 - 7 % | [facility] [...] | + + + + + | [facility] | And | [place] [address] | | | [facility] | [facility] | | | + + + + + COMPLETE METABOLIC SET (NA,K,CL,CO2,BUN,CREAT,GLUC,CA,AST,ALT,BILI TOTAL,ALK PHOS,ALB,PROT TOTAL) (09/02/2008 12:41 PM PDT) + +---------+ + + + | Component | Value | Ref Range | Performed | Pathologist | | | | | At | Signature | + +---------+ + + + | SODIUM, | 140 | 137 - 146 MEQ/L | [facility] | | | PLASMA | | | A MEDICAL | | | (LAB) | | | CENTER | | + +---------+ + + + | POTASSIUM, | 4.1 | 3.5 - 5.2 MEQ/L | [facility] | | | PLASMA | | | A MEDICAL | | | (LAB) | | | CENTER | | + +---------+ + + + | CO2 | 25 | 22 - 28 MEQ/L | [facility] | | | | | | A MEDICAL | | | | | | CENTER | | + +---------+ + + + | CHLORIDE, | 106 | 98 - 106 MEQ/L | [facility] | | | PLASMA | | | A MEDICAL | | | (LAB) | | | CENTER | | + +---------+ + + + | GLUCOSE, | 125 (H) | 70 - 105 MG/DL | [facility] | | | PLASMA | | | A MEDICAL | | | (LAB) | | | CENTER | | + +---------+ + + + | BUN, PLASMA | 12 | 8 - 30 MG/DL | [facility] | | | (LAB) | | | A MEDICAL | | | | | | CENTER | | + +---------+ + + + | CREATININE | 0.90 | 0.6 - 1.1 MG/DL | [facility] | | | PLASMA | | | A MEDICAL | | | (LAB) | | | CENTER | | + +---------+ + + + | BUN/CREATIN | 13 | 6 - 20 RATIO | [facility] | | | INE RATIO | | | A MEDICAL | | | | | | CENTER | | + +---------+ + + + | CALCIUM, | 9.8 | 8.5 - 10.8 | [facility] | | | PLASMA | | MG/DL | A MEDICAL | | | (LAB) | | | CENTER | | + +---------+ + + + | AST(SGOT) | 48 (H) | 10 - 41 U/L | [facility] | | | | | | A MEDICAL | | | | | | CENTER | | + +---------+ + + + | ALT (SGPT) | 48 | 7 - 51 U/L | [facility] | | | | | | A [facility] | | | | | | CENTER | | + +---------+ + + + | ALK PHOS | 70 | 40 - 180 U/L | [facility] | | | | | | A [facility] | | | | | | CENTER | | + +---------+ + + + | TOTAL | 7.1 | 6.7 - 8.5 G/DL | [facility] | | | PROTEIN, | | | A MEDICAL | | | PLASMA | | | CENTER | | | (LAB) | | | | | + +---------+ + + + | ALBUMIN, | 4.2 | 3.5 - 5.0 G/DL | [facility] | | | PLASMA | | | A MEDICAL | | | (LAB) | | | CENTER | | + +---------+ + + + | BILIRUBIN | 0.4 | 0.2 - 1.6 MG/DL | [facility] | | | TOTAL | | | A MEDICAL | | | | | | CENTER | | + +---------+ + + + | FASTING? | 15MIN | HR | [facility] | | | [...] | + + + + + | [facility] | And | [place] [id number] | | | [facility] | [facility] | | | + + + + + documented in this encounter Visit Diagnoses Not on filedocumented in this encounter"
--- OUTSIDE RECORDS SUMMARY | ~2018-09-10 | XMS | Encounter Summary ---
Demographics + + + | Address | [address] | | | [place] [address] | + + + | Home Phone | | + + + | Preferred Language | Unknown | + + + | Marital Status | | + + + | Cheondoism Affiliation | NON | + + + | Race | White | + + + | Ethnic Group | Not or | + + + Author + + + | Author | [facility] | + + + | Organization | [facility] | + + + | Address | Unknown | + + + | Phone | Unavailable | + + + Support + + + + + | Name | Relationship | Address | Phone | + + + + + | Ted Casas | ECON | [address] | | | | | [place] | | | | | [address] | | + + + + + | Carmen Renteria | ECON | [address] | | | | | [place] | | | | | [address] | | + + + + + | Vince Loredo | ECON | [place] | | + + + + + Care Team Providers + +------+ + | Care Study Director Name | Role | Phone | + +------+ + | Dominick Garcia MD | PCP | | + +------+ + Encounter Details +--------+ + + + + | Date | Type | Department | Care Team | Description | +--------+ + + + + | 02/13/ | Document-Sc | [facility] | Erna Rainey, | | | 2016 | steven | Center - Medical | MD [address] | | | | | Oncology [address] | [place], [place] | | | | | Street The | [address] | | | | | [place] | [phone] | | | | | [address] | | | | | | [phone] | | | +--------+ + + + [...]
--- OUTSIDE RECORDS SUMMARY | ~2018-09-10 | XMS | Encounter Summary ---
Demographics + + + | Address | [address] | | | [place] [address] | + + + | Home Phone | | + + + | Preferred Language | Unknown | + + + | Marital Status | | + + + | Sikh Affiliation | NON | + + + | Race | White | + + + | Ethnic Group | Not or | + + + Author + + + | Author | [facility] | + + + | Organization | [facility] | + + + | Address | Unknown | + + + | Phone | Unavailable | + + + Support + + + + + | Name | Relationship | Address | Phone | + + + + + | Ted Casas | ECON | [address] | | | | | [place] | | | | | [address] | | + + + + + | Carmen Renteria | ECON | [address] | | | | | [place] | | | | | [address] | | + + + + + | Vince Loredo | ECON | [place] | | + + + + + Care Team Providers + +------+ + | Care Powder Core Tester Name | Role | Phone | + [...] [place] | | | | | | [address] | | | | | | [phone] | | | | | | | [...] | + + + + + | [facility] | And | [place] [address] | | | [facility] | Street | | | + [...] [address] | [address] | [facility] | | | PLASMA | | | [...] + + + + | [facility] | | [place] [address] | | | [facility] | [facility] | | | + + + + + documented in this encounter Visit Diagnoses Not on filedocumented in this encounter"
--- OUTSIDE RECORDS SUMMARY | ~2018-09-10 | XMS | Encounter Summary ---
Demographics + + + | Address | [address] | | | [place] [address] | + + + | Home Phone | | + + + | Preferred Language | Unknown | + + + | Marital Status | | + + + | Rastafari Affiliation | NON | + + + | Race | White | + + + | Ethnic Group | Not or | + + + Author + + + | Author | [facility] | + + + | Organization | [facility] | + + + | Address | Unknown | + + + | Phone | Unavailable | + + + Support + + + + + | Name | Relationship | Address | Phone | + + + + + | Ted Patterson | ECON | [address] | | | | | [place] | | | | | [address] | | + + + + + | Carmen Renteria | ECON | [address] | | | | | [place] | | | | | [address] | | + + + + + | Vince Loredo | ECON | [place] | | + + + + + Care Team Providers + +------+ + | Care Account Liaison Hospice Name | Role | Phone | + [...] [place] | | | | | [address] | [address] | | | | | | [phone] | | | | | | | [...] Erna Rainey MD - 02/02/2015 3:18 PM [facility] [address] [place] [address] [address] DATE OF SERVICE: February 02, [...] study later next year. PAKO/MedQ ROMAN PATTERSON [id number] : 52 [id number] SERVICE DATE: 02/02/15 /[id number] cc: Kyle Garcia MD Electronically Signed 02/03/15 0944 X MD LEONARDO Brown LEE ANN [id number] : 52 [id number] SERVICE DATE: 02/02/15 9 :39 AM PDTdocumented in this encounter Plan of Treatment Not on filedocumented as of this encounter Visit Diagnoses Not on filedocumented in this encounter"
--- OUTSIDE RECORDS SUMMARY | ~2018-09-10 | XMS | Encounter Summary ---
Demographics + + + | Address | [address] | | | [place] [address] | + + + | Home Phone | | + + + | Preferred Language | Unknown | + + + | Marital Status | | + + + | Gnosticism Affiliation | NON | + + + | Race | White | + + + | Ethnic Group | Not or | + + + Author + + + | Author | [facility] | + + + | Organization | [facility] | + + + | Address | Unknown | + + + | Phone | Unavailable | + + + Support + + + + + | Name | Relationship | Address | Phone | + + + + + | Ted Patterson | ECON | [address] | | | | | [place] | | | | | [address] | | + + + + + | Carmen Renteria | ECON | [address] | | | | | [place] | | | | | [address] | | + + + + + | Vince Loredo | ECON | [place] | | + + + + + Care Team Providers + +------+ + | Care Mail Agent Name | Role | Phone | + +------+ + | Adrián Gregory MD | PCP | | + +------+ + Encounter Details +--------+ + + + + | Date | Type | Department | Care Team | Description | +--------+ + + + + | 05/06/ | Office | [facility] | Erna Rainey, | Progress Note | | 2008 | Visit-Trans | [address] | MD [address] | | | | cribed | [place] | [place] | | | | | [address] | [address] | | | | | | [phone] | | | | | | | [...] documented as of this encounter Progress Notes ReddJakob Leandro - 05/07/2008 6:21 AM [facility] [address] [place] [address] [address] DATE OF SERVICE: May 06, 2008 DIAGNOSIS: Stage I (T1B, N0, M0) breast cancer. INTERVAL HISTORY: The patient returned today for a 4-month follow-up. She has stage I breast cancer, on Arimidex as adjuvant hormonal therapy. Her arthralgia is a reasonably controlled with use of Percocet as needed. Hot flashes are responding to a combination of fluoxetine and Neurontin. She had an abnormal mammogram recently, therefore led to a biopsy in the contralateral breast on the left side. This turned out to be an epidermal inclusion cyst. She is scheduled to undergo reconstructive surgery at [facility] in the near future. MEDICATIONS: 1. Arimidex 1 mg daily. 2. Diovan 320 mg daily. 3. Crestor 20 mg daily. 4. Nexium 40 mg daily. 5. TriCor 145 mg daily. 6. Potassium chloride ER 20 mEq 2 tablets daily. 7. Spirolactone 25 mg daily. 8. Gabapentin 300 mg once daily. 9. Fluoxetine 20 mg daily. 10.Cyclobenzaprine 5 mg as needed. 11.Percocet as needed. 12.Daily vitamin. 13.Vitamin D plus calcium. PHYSICAL EXAMINATION: VITAL SIGNS: Weight is 164.2 pounds. Blood pressure 127/81, pulse 95, temperature 97.7, saturation of 96%. GENERAL APPEARANCE: She appears comfortable and well-nourished. HEENT: Pupils equal, round and reactive, sclerae nonicteric. NECK: Supple without palpable mass, JVD, or thyroid enlargement. LUNGS: Clear to auscultation, no rales, no muscle retraction. HEART: S1, S2, regular rate and rhythm, no S3 or S4 or murmurs. BREASTS: Status post mastectomy on the right side, there is no chest wall lesions, left breast examination except the upper medial area with a recent biopsy and some induration, there is no other palpable mass. No palpable axillary lymphadenopathies. ABDOMEN: Soft, nontender, no organomegaly or mass. LABORATORY DATA: Not obtained today. IMPRESSION: Stage I (T1B, N0, M0) breast cancer, no evidence of recurrence, recent contralateral breast biopsy negative. PLAN: Will have her return in 4 months for next follow-up, we will obtain ROMAN PATTERSON [id number] : 52 [id number] SERVICE DATE: 05/06/08 laboratory studies before visit. XF/MedQ /[id number] Electronically Signed X MD LEONARDO Brown LEE ANN A [id number] : 52 [id number] SERVICE DATE: 05/06/08 12 :07 PM PDTdocumented in this encounter Plan of Treatment Not on filedocumented as of this encounter Visit Diagnoses Not on filedocumented in this encounter"
--- OUTSIDE RECORDS SUMMARY | ~2018-09-10 | XMS | Encounter Summary ---
Demographics + + + | Address | [address] | | | [place] [address] | + + + | Home Phone | | + + + | Preferred Language | Unknown | + + + | Marital Status | | + + + | Evangelical Affiliation | NON | + + + | Race | White | + + + | Ethnic Group | Not or | + + + Author + + + | Author | [facility] | + + + | Organization | [facility] | + + + | Address | Unknown | + + + | Phone | Unavailable | + + + Support + + + + + | Name | Relationship | Address | Phone | + + + + + | Ted Patterson | ECON | [address] | | | | | [place] | | | | | [address] | | + + + + + | Carmen Renteria | ECON | [address] | | | | | [place] | | | | | [address] | | + + + + + | Vince Loredo | ECON | [place] | | + + + + + Care Team Providers + +------+ + | Care Real Property Evaluator Name | Role | Phone | + +------+ + | Adrián Gregory MD | PCP | | + +------+ + Encounter Details +--------+ + + + + | Date | Type | Department | Care Team | Description | +--------+ + + + + | 09/14/ | Office | [facility] | Erna Rainey, | Progress Note | | 2013 | Visit-Trans | [address] | MD [address] | | | | cribed | [place] | [place] | | | | | [address] | [address] | | | | | | [phone] | | | | | | | [...] encounter Progress Notes Erna Rainey MD - 09/14/2013 3:[address] [facility] [address] [place] [address] [address] ANN DATE OF SERVICE: September 14, 2013 DIAGNOSIS: Breast cancer stage I (T1b N0 M0). TREATMENT: Anastrozole 1 mg p.o. daily. INTERVAL HISTORY: The patient returned today for followup of her breast cancer. She was initially diagnosed with breast cancer back in April 2007; therefore, she is beyond 5 years of diagnosis. She would like to continue her anastrozole. Therefore, we are continuing to follow her bone density. Last year, she had a decrease in bone density of her L2 and L3 vertebral bodies, we are following her with another bone density study this year. PHYSICAL EXAMINATION: VITAL SIGNS: She weighs 163 pounds, blood pressure 104/74, pulse 93, temperature 98.9, saturation 97%. GENERAL APPEARANCE: She is comfortable, well nourished, not in acute distress. HEENT: Sclerae nonicteric. NECK: Supple. LUNGS: Clear. HEART: Rate is regular. BREAST: Examination reveals no palpable mass on the left side, there is extensive scarring on the right side, again no palpable mass. No axillary palpable lymphadenopathies. LABORATORY DATA: WBC 5.5, hemoglobin 12.9, platelet count 197,000. Her bone density study was done September 09, which revealed no evidence of osteopenia or osteoporosis, her total bone mineral density was 0.919 g/sq cm. Her T-score was - 0.2 and a Z-score was positive 0.8. Regarding her L-spine, her L3 T-score was at - 1.0, but Z-score of 0.6. Other numbers are remarkable. IMPRESSION: 1. No osteopenia or osteoporosis. 2. No evidence of breast cancer recurrence. PLAN: 1. She will continue her anastrozole. 2. I will have her come back in 6 months again for next followup. 3. Does not need bone density a couple years from now. XF/MedQ /[id number] ROMAN PATTERSON [id number] : 52 [id number] SERVICE DATE: 09/14/13 cc: Adrián Gregory M.D. Electronically Signed 09/15/13 1317 X MD LEONARDO Brown LEE ANN [id number] : 52 [id number] SERVICE DATE: 09/14/13 3 :14 PM PDTdocumented in this encounter Plan of Treatment Not on filedocumented as of this encounter Visit Diagnoses Not on filedocumented in this encounter"
--- OUTSIDE RECORDS SUMMARY | ~2018-09-10 | XMS | Encounter Summary ---
Demographics + + + | Address | [address] | | | [place] [address] | + + + | Home Phone | | + + + | Preferred Language | Unknown | + + + | Marital Status | | + + + | Orthodox Affiliation | NON | + + + | Race | White | + + + | Ethnic Group | Not or | + + + Author + + + | Author | [facility] | + + + | Organization | [facility] | + + + | Address | Unknown | + + + | Phone | Unavailable | + + + Support + + + + + | Name | Relationship | Address | Phone | + + + + + | Ted Casas | ECON | [address] | | | | | [place] | | | | | [address] | | + + + + + | Carmen Renteria | ECON | [address] | | | | | [place] | | | | | [address] | | + + + + + | Vince Loredo | ECON | [place] | | + + + + + Care Team Providers + +------+ + | Care Dcs Engineer Name | Role | Phone | + +------+ + | Dominick Garcia MD | PCP | | + +------+ + Encounter Details +--------+------+ + + + | Date | Type | Department | Care Team | Description | +--------+------+ + + + | 08/02/ | Lab | [facility] | | Malignant neoplasm | | 2015 | | Center - Lab [address] | | of upper-outer | | | | [address] | | quadrant of right | | | | [place], [place] | | female breast (HCC) | | | | [address] | | (Primary Dx) | | | | [phone] | | | +--------+------+ + + + Social History [...] Malignant neoplasm of upper-outer quadrant of right female breast (HCC) - Primary | | Malignant neoplasm of upper-outer quadrant of female breast | + + documented in this encounter"
--- OUTSIDE RECORDS SUMMARY | ~2018-09-10 | XMS | Encounter Summary ---
Demographics + + + | Address | [address] | | | [place] [address] | + + + | Home Phone | | + + + | Preferred Language | Unknown | + + + | Marital Status | | + + + | Adventism Affiliation | NON | + + + | Race | White | + + + | Ethnic Group | Not or | + + + Author + + + | Author | [facility] | + + + | Organization | [facility] | + + + | Address | Unknown | + + + | Phone | Unavailable | + + + Support + + + + + | Name | Relationship | Address | Phone | + + + + + | Ted Patterson | ECON | [address] | | | | | [place] | | | | | [address] | | + + + + + | Carmen Renteria | ECON | [address] | | | | | [place] | | | | | [address] | | + + + + + | Vince Loredo | ECON | [place] | | + + + + + Care Team Providers + +------+ + | Care Curriculum Consultant Name | Role | Phone | + +------+ + | Dominick Garcia MD | PCP | | + +------+ + Encounter Details +--------+ + + + + | Date | Type | Department | Care Team | Description | +--------+ + + + + | 10/31/ | Hospital | Bone Density at | | | | 2015 | Encounter | [facility] [address] | | | | | [address] | | | | | | [place] | | | | | | [address] | | | +--------+ + + + [...] + + documented as of this encounter Medications at Time of Discharge + + + +---------+--------+ + | Medication | Sig | Dispensed | Refills | Start | End Date | | | | | | Date | | + + + +---------+--------+ + | CALCIUM + D 600 | 1 tab p.o. twice | | 0 | | | | (1,500)-200 mg-unit | daily | | | | | | Oral Tablet | | | | | | + + + +---------+--------+ + | Fluoxetine HCl 20 | Take 20 mg by mouth | | 0 | | | | mg Oral Tablet | once daily. | | | | | + + + +---------+--------+ + | potassium chloride | take 3 tablet (20 | | 0 | | | | SR 20 mEq Oral Tab | meq) by oral route | | | | | | Sust.Rel. | once daily with food | | | | | | Particle/Crystal | | | | | | + + + +---------+--------+ + | rosuvastatin | Take 40 mg by mouth | | 0 | | | | (CRESTOR) 40 mg Oral | once daily. | | | | | | Tablet | | | | | | + + + +---------+--------+ + | Sitagliptin | Take 50 mg by mouth | | 0 | | | | (JANUVIA) 100 mg | once daily. | | | | | | Oral Tablet | | | | | | + + + +---------+--------+ + documented as of this encounter Plan of Treatment Not on filedocumented as of this encounter Procedures + +--------+ + + + | Procedure Name | Priori | Date/Time | Associated Diagnosis | Comments | | | ty | | | | + +--------+ + + + | BONE DENSITY 1 OR | Routin | 11/01/2015 | Osteopenia | Results for this | | MORE | e | 12:39 PM | | procedure are in the | | | | PDT | | results section. | + +--------+ + + + | ORDERS OTHER | | 11/01/2015 | | Results for this | | | | 12:00 AM | | procedure are in the | | | | PDT | | results section. | + +--------+ + + + documented in this encounter Results BONE DENSITY 1 OR MORE (11/01/2015 12:39 PM PDT) + + | Specimen | + + | | + + + + + | Narrative | Performed At | + + + | [address] [place] [address] | [facility] | | [place] [address] | DEPARTMENT | | [phone] | RADIOLOGY | | Name: LEONARDOROMANRINKU Phys: MARISOL ALBERTO Leandro | | | : 1950 Sex: F CSN: | | | [id number] MR# [id number] Exam Date: | | | 11/01/2015 EXAM: BONE DENSITY 1 OR MORE CLINICAL HISTORY: | | | Clinical Indication: osteopenia FINDINGS: Weight: 81.81kg | | | Height: 156cm Region | | | BMD T-score Z-score Classification AP Spine (L2, | | | L3) 0.886 -1.6 0.1 Osteopenia | | | Femoral Neck (Left) 0.765 -0.8 0.7 | | | Normal Total Hip (Left) 0.945 0.0 | | | 1.2 Normal World Health Organization criteria for BMD | | | impression classify patients as: Normal (T-score at or above -1.0), | | | Osteopenia (T-score between -1.0 and -2.5), or Osteoporosis (T-score | | | at or below -2.5). 10-year Fracture Risk(1): Major | | | Osteoporotic Fracture 7.0% Hip | | | Fracture 0.4% | | | Reported Risk Factors: [place] (), Neck BMD=0.765, BMI=33.5 (1) | | | FRAX(r) Version 3.08. Fracture probability calculated for an | | | untreated patient. Fracture probability may be lower if the patient | | | has received treatment. World Health Organization criteria | | | for BMD impression classify patients as: Osteopenia (T-score | | | between -1.0 and -2.5), or Normal (T-score at or above -1.0), | | | Osteopenia (T-score between -1.0 and -2.5), or Osteoporosis (T-score | | | at or below -2.5). Previous Exams: | | | Region Exam Age BMD T-score BMD Change BMD | | | Change Date g/cm2 vs | | | Baseline vs Previous AP Spine (L2-L3) 11/01/2015 | | | 65 0.886 -1.6 0.8% 0.8% | | | 07/24/2012 62 0.879 -1.6 Total Hip(Left) 11/01/2015 | | | 65 0.945 0.0 -9.1%* -9.1%* | | | 07/24/2012 62 1.039 0.8 Femoral Neck(Left) | | | 11/01/2015 65 0.765 -0.8 -5.3%* | | | -5.3%* 07/24/2012 62 0.807 -0.4 *Denotes significance at | | | 95% confidence level, LSC for AP Spine = 0.022 g/cm2, LSC for | | | Total Hip = 0.027 g/cm2 Clinical Information Provided by Patient: | | | Has used the following medications: HRT (i.e. estrogen/hormone | | | therapy), Vitamin D, Calcium Has the following medical conditions: | | | Cancer, Hysterectomy Patient maximum height was 62.5 Menopause Age: | | | 47 No regular weight bearing exercise Drinks caffeinated beverages | | | Onset of menses at age 14 Number of children 3 *Denotes | | | significance at 95% confidence level, LSC for AP Spine = 0.022 | | | g/cm2, LSC for 1/3 Forearm = 0.023 g/cm2 # Denotes dissimilar | | | scan types or analysis methods IMPRESSION: The patient has low | | | bone mass,(osteopenia) based on the Total Spine T-score. The patient | | | has an estimated ten-year risk of hip fracture of 0.4% and an | | | estimated ten-year risk of major fracture of 7%, based on the WHO | | | FRAX algorithm. The BMD for the Total Hip(Left) decreased, changing | | | by -9.1% since the last DXA exam. The BMD for the Femoral Neck(Left) | | | decreased, changing by -5.3% since the last DXA exam. World Health | | | Organization criteria for BMD impression classify patients as: | | | Osteopenia (T-score between -1.0 and -2.5) Discussion: BONE | | | DENSITY IS LOW AT ONE OR MORE SKELETAL SITES. This patient's lowest | | | T-score is low at one or more skeletal sites. It meets the World | | | Health Organization's (WHO) criteria for "low bone mass" (T-score | | | between -1.0 and -2.5). The patient's 10-year risk of fracture as | | | calculated by FRAX is less than the threshold where pharmacological | | | therapy is recommended by the National Osteoporosis Foundation | | | (NOF). However, all treatment decisions require clinical judgment | | | and consideration of individual patient factors, including patient | | | preferences, comorbidities, previous drug use, risk factors not | | | captured in the FRAX model (e.g., frailty, falls, vitamin D | | | deficiency, increased bone turnover, interval significant decline in | | | bone density) and possible under or overestimation of fracture risk | | | by FRAX. The patient should follow a healthful lifestyle (good | | | nutrition with adequate calcium and vitamin D, and appropriate | | | weight-bearing exercise). Follow-Up: Consider repeating this study | | | in 2 years to reassess this patient's status, or sooner if there is | | | some new clinical indication. REPORT SIGNED IN | | | OTHER VENDOR SYSTEM 11/01/2015 Reported by: CARTER FRAZIER MD | | | Electronically signed by: CARTER FRAZIER MD Transcribed | | | Date/Time: 11/01/2015 13:29 Proj Engineer: FLUENCY | | + + + + + | Procedure Note | + + | Interface, Radiology Results - 11/01/2015 1:33 PM PDT [address] | | [place] [address] | | Name: ROMAN PATTERSON ANN Phys: MARISOL ALBERTO : 1950 Sex: F | | CSN: [id number] MR# [id number] Exam Date: 11/01/2015 EXAM:BONE DENSITY 1 OR MORE | | CLINICAL HISTORY:Clinical Indication: osteopenia FINDINGS:Weight: 81.81kgHeight: | | 156cm Region BMD T-score Z-score Classification AP Spine (L2, | | L3) 0.886 -1.6 0.1 OsteopeniaFemoral Neck (Left) 0.765 -0.8 | | 0.7 NormalTotal Hip (Left) 0.945 0.0 1.2 Normal World Health | | Organization criteria for BMD impressionclassify patients as:Normal (T-score at or above | | -1.0),Osteopenia (T-score between -1.0 and -2.5), orOsteoporosis (T-score at or below | | -2.5). 10-year Fracture Risk(1): Major Osteoporotic Fracture 7.0%Hip Fracture | | 0.4% Reported Risk Factors:[place] (), Neck BMD=0.765, | | BMI=33.5(1) FRAX(r) Version 3.08. Fracture probability calculated for anuntreated | | patient. Fracture probability may be lower if thepatient has received treatment. World | | Health Organization criteria for BMD impressionclassify patients as: Osteopenia | | (T-score between -1.0 and -2.5), orNormal (T-score at or above -1.0),Osteopenia (T-score | | between -1.0 and -2.5), orOsteoporosis (T-score at or below -2.5). Previous Exams: | | Region Exam Age BMD T-score BMD Change BMD ChangeDate g/cm2 | | vs Baseline vs Previous AP Spine (L2-L3)11/01/2015 65 0.886 -1.6 0.8% | | 0.8%07/24/2012 62 0.879 -1.6 Total Hip(Left)11/01/2015 65 0.945 0.0 | | -9.1%* -9.1%*07/24/2012 62 1.039 0.8 Femoral Neck(Left)11/01/2015 65 | | 0.765 -0.8 -5.3%* -5.3%*07/24/2012 62 0.807 -0.4*Denotes significance | | at 95% confidence level, LSC for AP Spine =0.022 g/cm2, LSC for Total Hip = 0.027 | | g/cm2 Clinical Information Provided by Patient: Has used the following medications: HRT | | (i.e. estrogen/hormonetherapy), Vitamin D, CalciumHas the following medical conditions: | | Cancer, HysterectomyPatient maximum height was 62.5Menopause Age: 47No regular weight | | bearing exerciseDrinks caffeinated beveragesOnset of menses at age 14Number of children | | 3 *Denotes significance at 95% confidence level, LSC for AP Spine =0.022 g/cm2, LSC | | for 1/3 Forearm = 0.023 g/cm2 # Denotes dissimilar scan types or analysis methods | | IMPRESSION:The patient has low bone mass,(osteopenia) based on the Total SpineT-score. | | The patient has an estimated ten-year risk of hip fractureof 0.4% and an estimated | | ten-year risk of major fracture of 7%, basedon the WHO FRAX algorithm. The BMD for the | | Total Hip(Left) decreased,changing by -9.1% since the last DXA exam. The BMD for the | | FemoralNeck(Left) decreased, changing by -5.3% since the last DXA exam. World Health | | Organization criteria for BMD impressionclassify patients as: Osteopenia (T-score | | between -1.0 and -2.5) Discussion: BONE DENSITY IS LOW AT ONE OR MORE SKELETAL | | SITES.This patient's lowest T-score is low at one or more skeletal sites.It meets the | | World Health Organization's (WHO) criteria for "low bonemass" (T-score between -1.0 and | | -2.5).The patient's 10-year risk of fracture as calculated by FRAX is lessthan the | | threshold where pharmacological therapy is recommended bythe National Osteoporosis | | Foundation (NOF). However, all treatmentdecisions require clinical judgment and | | consideration of individualpatient factors, including patient preferences, | | comorbidities,previous drug use, risk factors not captured in the FRAX model | | (e.g.,frailty, falls, vitamin D deficiency, increased bone turnover,interval significant | | decline in bone density) and possible under oroverestimation of fracture risk by FRAX. | | The patient should follow ahealthful lifestyle (good nutrition with adequate calcium and | | vitaminD, and appropriate weight-bearing exercise). Follow-Up: Consider repeating this | | study in 2 years to reassess thispatient's status, or sooner if there is some new | | clinical indication. REPORT SIGNED IN OTHER VENDOR SYSTEM 11/01/2015 Reported | | by: CARTER FRAZIER MD Electronically signed by: CARTER FRAZIER MD Transcribed | | Date/Time: 11/01/2015 13:29Transcriptionist: FLUENCY | |Osteopenia (T-score between -1.0 and -2.5), or | |Osteoporosis (T-score at or below -2.5). | | | |Previous Exams: | | | |Region Exam Age BMD T-score BMD Change BMD Change | |Date g/cm2 vs Baseline vs Previous | | | | | |AP Spine (L2-L3) | |11/01/2015 65 0.886 -1.6 0.8% 0.8% | |07/24/2012 62 0.879 -1.6 | | | |Total Hip(Left) | |11/01/2015 65 0.945 0.0 -9.1%* -9.1%* | |07/24/2012 62 1.039 0.8 | | | | | |Femoral Neck(Left) | |11/01/2015 65 0.765 -0.8 -5.3%* -5.3%* | |07/24/2012 62 0.807 -0.4 | |*Denotes significance at 95% confidence level, LSC for AP Spine = | |0.022 g/cm2, LSC for Total Hip = 0.027 g/cm2 | | | |Clinical Information Provided by Patient: | | | |Has used the following medications: HRT (i.e. estrogen/hormone | |therapy), Vitamin D, Calcium | |Has the following medical conditions: Cancer, Hysterectomy | |Patient maximum height was 62.5 | |Menopause Age: 47 | |No regular weight bearing exercise | |Drinks caffeinated beverages | |Onset of menses at age 14 | |Number of children 3 | | | | | | | | | |*Denotes significance at 95% confidence level, LSC for AP Spine = | |0.022 g/cm2, LSC for 1/3 Forearm = 0.023 g/cm2 | | | |# Denotes dissimilar scan types or analysis methods | | | |IMPRESSION: | |The patient has low bone mass,(osteopenia) based on the Total Spine | |T-score. The patient has an estimated ten-year risk of hip fracture | |of 0.4% and an estimated ten-year risk of major fracture of 7%, based | |on the WHO FRAX algorithm. The BMD for the Total Hip(Left) decreased, | |changing by -9.1% since the last DXA exam. The BMD for the Femoral | |Neck(Left) decreased, changing by -5.3% since the last DXA exam. | | | |World Health Organization criteria for BMD impression | |classify patients as: Osteopenia (T-score between -1.0 and -2.5) | | | |Discussion: BONE DENSITY IS LOW AT ONE OR MORE SKELETAL SITES. | |This patient's lowest T-score is low at one or more skeletal sites. | |It meets the World Health Organization's (WHO) criteria for "low bone | |mass" (T-score between -1.0 and -2.5). | |The patient's 10-year risk of fracture as calculated by FRAX is less | |than the threshold where pharmacological therapy is recommended by | |the National Osteoporosis Foundation (NOF). However, all treatment | |decisions require clinical judgment and consideration of individual | |patient factors, including patient preferences, comorbidities, | |previous drug use, risk factors not captured in the FRAX model (e.g., | |frailty, falls, vitamin D deficiency, increased bone turnover, | |interval significant decline in bone density) and possible under or | |overestimation of fracture risk by FRAX. The patient should follow a | |healthful lifestyle (good nutrition with adequate calcium and vitamin | |D, and appropriate weight-bearing exercise). | | | |Follow-Up: Consider repeating this study in 2 years to reassess this | |patient's status, or sooner if there is some new clinical indication. | | | | | | | | | | | | | | REPORT SIGNED IN OTHER VENDOR SYSTEM 11/01/2015 | |Reported by: CARTER FRAZIER MD | | | |Electronically signed by: CARTER FRAZIER MD | | | |Transcribed Date/Time: 11/01/2015 13:29 | |Proj Engineer: FLUENCY | | | | | | | + + + +---------+ + + | Performing | Address | City/State/Zipcode | Phone Number | | Organization | | | | + +---------+ + + | [facility] | | | | [facility] | | | | + +---------+ + + ORDERS OTHER (11/01/2015 12:00 AM PDT) + + + | Narrative | Performed At | + + + | | | + + + documented in this encounter Visit Diagnoses + + | Diagnosis | + + | Osteopenia Disorder of bone and cartilage, unspecified | + + documented in this encounter
--- OUTSIDE RECORDS SUMMARY | ~2018-09-10 | XMS | Encounter Summary ---
Demographics + + + | Address | [address] | | | [place] [address] | + + + | Home Phone | | + + + | Preferred Language | Unknown | + + + | Marital Status | | + + + | Christian Affiliation | NON | + + + | Race | White | + + + | Ethnic Group | Not or | + + + Author + + + | Author | [facility] | + + + | Organization | [facility] | + + + | Address | Unknown | + + + | Phone | Unavailable | + + + Support + + + + + | Name | Relationship | Address | Phone | + + + + + | Ted Casas | ECON | [address] | | | | | [place] | | | | | [address] | | + + + + + | Carmen Renteria | ECON | [address] | | | | | [place] | | | | | [address] | | + + + + + | Vince Loredo | ECON | [place] | | + + + + + Care Team Providers + +------+ + | Care Drainage Engineer Name | Role | Phone | [...] Description | +--------+--------+ + + + | 06/04/ | Refill | [facility] | Iris Champion, | Refill Request | | 2017 | | Center - Medical | MD | | | | | Oncology [address] | | | | | | [place] | | | | | | [place] | | | | | | [address] | | | | | | [phone] | | | +--------+--------+ + + + [...]
--- OUTSIDE RECORDS SUMMARY | ~2018-09-10 | XMS | Encounter Summary ---
Demographics + + + | Address | [address] | | | [place] [address] | + + + | Home Phone | | + + + | Preferred Language | Unknown | + + + | Marital Status | | + + + | Voodoo Affiliation | NON | + + + | Race | White | + + + | Ethnic Group | Not or | + + + Author + + + | Author | [facility] | + + + | Organization | [facility] | + + + | Address | Unknown | + + + | Phone | Unavailable | + + + Support + + + + + | Name | Relationship | Address | Phone | + + + + + | Ted Casas | ECON | [address] | | | | | [place] | | | | | [address] | | + + + + + | Carmen Renteria | ECON | [address] | | | | | [place] | | | | | [address] | | + + + + + | Vince Loredo | ECON | [place] | | + + + + + Care Team Providers + +------+ + | Care Sales Solutions Associate Name | Role | Phone | + [...] Description | +--------+--------+ + + + | 04/26/ | Refill | [facility] | Erna Rainey, | Refill Request | | 2016 | | Center - Medical | MD [address] | | | | | Oncology [address] | [place], [place] | | | | | [place] | [address] | | | | | [place], [place] | [phone] | | | | | [address] | | | | | | [phone] | | | +--------+--------+ + + + [...]
--- OUTSIDE RECORDS SUMMARY | ~2018-09-10 | XMS | Encounter Summary ---
Demographics + + + | Address | [address] | | | [place] [address] | + + + | Home Phone | | + + + | Preferred Language | Unknown | + + + | Marital Status | | + + + | Islam Affiliation | Unknown | + + + | Race | Unknown | + + + | Ethnic Group | Unknown | + + + Author + + + | Author | [facility] | + + + | Organization | [facility] | + + + | Address | Unknown | + + + | Phone | Unavailable | + + + Support + + + + + | Name | Relationship | Address | Phone | + + + + + | Ted Cortes | ECON | [address] | | | | | [place] | | | | | [address] | | + + + + + | Jersey Marroquin | ECON | [place] | | | | | [address] | | + + + + + Care Team Providers + +------+ + | Care Gem Stone Cutter Name | Role | Phone | + +------+ + | Dominick Clark | PCP | | + +------+ + Reason for Referral MRI/CAT Scan (Routine) +--------+--------+ + + + + | Status | Reason | Specialty | Diagnoses / | Referred By | Referred To | | | | | Procedures | Contact | Contact | +--------+--------+ + + + + | Closed | | Radiology | Diagnoses | Shell, | [facility] | | | | | Numbness | MD Wally | [address] | | | | | Procedures | [address] | | | | | MRI lumbar | [place] | [place], [place] | | | | | spine | Drive | [address] Phone: | | | | | without | [place], [place] | [phone] | | | | | contrast | [address] | Fax: | | | | | | Phone: | [phone] | | | | | | [phone] | | | | | | | Fax: | | | | | | | [phone] | | +--------+--------+ + + + + Reason for Visit + + + | Reason | Comments | + + + | Procedure | BLE EMG | + + + EEG/EMG (Routine) + [...] | | | extremity | [address], | [place], [place] | | | | | | [place] [address] | [address] Phone: | | | | | | Phone: | [phone] | | | | | | [phone] | Fax: | | | | | | Fax: | [phone] | | | | | | [phone] | | + +--------+ + + + + Encounter Details +--------+ + + + + | Date | Type | Department | Care Team | Description | +--------+ + + + + | 07/30/ | Procedure | [facility] | Wally Shell, | Numbness (Primary | | 2019 | visit | [facility] | MD [address] | Dx); Polyneuropathy | | | | [address] | Drive [place], [place] | | | | | [place], [place] | [address] | | | | | [address] | | | | | | [phone] | | | +--------+ + + + [...] + +---------+ + | Blood Pressure | 135/69 | 07/30/2018 9:01 AM PDT | + +---------+ + | Pulse | 95 | 07/30/2018 9:01 AM PDT | + +---------+ + | Temperature | - | - | + +---------+ + | Respiratory Rate | - | - | + +---------+ + | Oxygen Saturation | 96% | 07/30/2018 9:01 AM PDT | + +---------+ + | Inhaled Oxygen | - | - | | Concentration | | | + +---------+ + | Weight | - | - | + +---------+ + | Height | - | - | + +---------+ + | Body Mass Index | - | - | + +---------+ + in this encounter Progress Notes Wally Shell MD - 07/30/2018 8:45 AM PDTFormatting of this note may be different from the original. [facility] [address] [facility] , [address] [place], [place] [phone] Test Date: 07/30/2018 Patient: raeann cortes : 1950 Physician: Wally Shell MD Sex: Female Height: Ref Phys: ID#: [id number] Weight: Rn Stars: Patient History / Exam: 68-year-old woman with history of breast cancer and insulin dependent diabetes presenting b ecause of constant numbness in the left big toe and frequent paresthesias in the feet. No pa in. She says her feet feel cold all the time, as well. NCV & EMG Findings: All sensory and motor nerve conduction studies were unelicitable. Needle examination revealed motor unit changes in several distal L5 and S1 muscles. Impression: Significant distal sensorimotor polyneuropathy. This is quite severe. Besides this, cannot rule out superimposed L5 or S1 radiculopathy. We will order lumbar MRI and follow-up visit Wally Shell MD [facility] Nerve Conduction Studies Anti Sensory Summary Table Stim Site NR Peak (ms) P-T Amp (V) Site1 Site2 Delta-P (ms) Dist (cm) Reddy (m/s) Left Sup Peron Anti Sensory (Ant Lat Mall) 14 cm NR 14 cm Ant Lat Mall 0.0 Right Sup Peron Anti Sensory (Ant Lat Mall) 14 cm NR 14 cm Ant Lat Mall 0.0 Left Sural Anti Sensory (Lat Mall) 7cm Calf NR Right Sural Anti Sensory (Lat Mall) 7cm Calf NR Motor Summary Table Stim Site NR Onset (ms) O-P Amp (mV) Site1 Site2 Delta-0 (ms) Dist (cm) Reddy (m/s) Left Peroneal Motor (Ext Dig Brev) Ankle NR B Fib Ankle 0.0 B Fib 13.8 0.0 Right Peroneal Motor (Ext Dig Brev) Ankle NR Left Tibial Motor (Abd Berger Brev) Ankle NR Knee Ankle 0.0 Knee 13.8 0.0 Right Tibial Motor (Abd Berger Brev) Ankle NR EMG+ Side Muscle Ins Act Fibs Psw Amp Dur Poly Recrt Int Pat Comment Right GluteusMed Nml Nml Nml Nml Nml 0 Nml Nml Left BicepsFemL Nml Nml Nml Nml Nml 0 Nml Nml Left Peroneus Long Nml Nml Nml Incr >12ms 0 Reduced Nml Left Gastroc Nml Nml Nml Incr >12ms 1+ Reduced Nml Left VastusMed Nml Nml Nml Nml Nml 0 Nml Nml Left GluteusMed Nml Nml Nml Nml Nml 0 Nml Nml Right BicepsFemL Nml Nml Nml Nml Nml 0 Nml Nml Right Peroneus Long Nml Nml Nml Incr >12ms 2+ Reduced Nml Right Gastroc Nml Nml Nml Incr >12ms 1+ Reduced Nml Right VastusMed Nml Nml Nml Nml Nml 0 Nml Nml in this encounter Plan of Treatment +--------+---------+ + + + | Date | Type | Specialty | Care Team | Description | +--------+---------+ + + + | 10/21/ | Office | Physical Medicine | Wally Shell, | | | 2019 | Visit | and Rehabilitation | MD Bart Sheridan | | | | | | [facility] | | | | | | [id number] | | | | | | | | +--------+---------+ + + + as of this encounter Results MRI lumbar spine without contrast (08/05/2018 [...] exiting L5 nerve roots. Signed by: Linda Lopez Edward Sign | | | Date/Time: 08/06/2018 10:49 [...] + + | Performing | Address | City/State[facility] | Phone Number | | Organization | | | | + + + + + | [facility] | [address] | [place] [address] | | + + + + + in this encounter Visit Diagnoses + + | Diagnosis | + + | Numbness - Primary | + + | Disturbance of skin sensation | + + | Polyneuropathy | + + | Unspecified hereditary and idiopathic peripheral neuropathy | + +"
--- OUTSIDE RECORDS SUMMARY | ~2018-09-10 | XMS | Encounter Summary ---
Demographics + + + | Address | [address] | | | [place] [address] | + + + | Home Phone | | + + + | Preferred Language | Unknown | + + + | Marital Status | | + + + | Muslim Affiliation | NON | + + + [...] + | Ted Patterson | ECON | [address] | | | | | [place] | | | | | [address] | | + + + + + | Carmen Renteria | ECON | [address] | | | | | [place] | | | | | [address] | | + + + + + | Vince Loredo | ECON | [place] | | + + + + + Care Team Providers + +------+ + | Care Plasterer Apprentice Name | Role | Phone | + +------+ + | Dominick Clark | PCP | | + +------+ + Reason for Referral Diagnostic Testing (Routine) +--------+--------+ + + + + | Status | Reason | Specialty | Diagnoses / | Referred By | Referred To | | | | | Procedures | Contact | Contact | +--------+--------+ + + + + | Closed | | Radiology | Diagnoses | Marisol Alberto | [address] | | | | | Malignant | MD Chivo | [address] | | | | | neoplasm of | [address] | [address] [facility] | | | | | right female | [facility] | [facility] | | | | | breast, | [place], [place] | [place], | | | | | unspecified | [address] | [place] [address] | | | | | site of | Phone: | | | | | | breast | [phone] | | | | | | Procedures | Fax: | | | | | | PET CT SKULL | [phone] | | | | | | BASE TO | | | | | | | MID-THIGHS | | | +--------+--------+ + + + + Encounter Details +--------+ + + + + | Date | Type | Department | Care Team | Description | +--------+ + + + + | 06/27/ | Hospital | PET CT at Patient | Marisol Alberto, | No Show | | 2017 | Encounter | [facility] [address] | MD [address] | | | | | [address] [facility] | [facility], [place] | | | | | [facility] | [address] | | | | | [place] | [phone] | | | | | [address] | | | +--------+ + + + [...] | + + + +---------+--------+ + | Fenofibrate | Take 1 tablet by | | 0 | | | | (FENOFIBRATE) 160 mg | mouth once daily. | | | | | | oral tablet | | | | | | + + + +---------+--------+ + | Fluoxetine HCl 20 | Take 20 mg by mouth | | 0 | | | | mg Oral Tablet | once daily. | | | | | + + + +---------+--------+ + | furosemide 20 mg | Take 40 mg by mouth | | 0 | | | | oral tablet | once daily. | | | | | + + + +---------+--------+ + | gabapentin 100 mg | Take 100 mg by mouth | | 0 | | | | oral capsule | three times daily. | | | | | + + + +---------+--------+ + | irbesartan 300 mg | Take 300 mg by mouth | | 0 | | | | oral tablet | once daily. | | | | | + + + +---------+--------+ + | levothyroxine 75 | Take 75 mcg by mouth | | 0 | | | | mcg oral tablet | once daily. | | | | | + + + +---------+--------+ + | metoprolol | Take 50 mg by mouth | | 0 | | | | succinate 50 mg oral | once daily. | | | | | | tablet extended | | | | | | | release 24 hr | | | | | | + + + +---------+--------+ + | pantoprazole 40 mg | Take 80 mg by mouth | | 0 | | | | oral tablet,delayed | once daily. | | | | | | release (DR/EC) | | | | | | + [...] | + +--------+ + + + | PET CT SKULL BASE TO | Routin | 07/04/2016 | Malignant neoplasm | Results for this | | MID-THIGHS | e | 2:23 PM | of right female | procedure are in the | | | | PDT | breast, unspecified | results section. | | | | | site of breast (HCC) | | + +--------+ + + + documented in this encounter Results PET CT SKULL BASE TO MID-THIGHS (07/04/2016 2:23 PM PDT) + + | Specimen | + + | | + + + + + | Narrative | Performed At | + + + | [address] [place] [address] | [facility] | | [place] [address] | DEPARTMENT OF | | [phone] | RADIOLOGY | | Name: PERRY PATTERSON Phys: MARISOL ALBERTO | | | : 1950 Sex: F CSN: | | | [id number] MR# [id number] Exam Date: | | | 07/04/2016 EXAM: PET-CT CLINICAL HISTORY: Right breast | | | cancer diagnosed in April 2007. Elevated CEA. Assess for | | | underlying malignancy. COMPARISON: Chest CT from 05/08/2010. | | | TECHNIQUE: The patient's fasting blood glucose level was 124 | | | mg/dL. In the left antecubital fossa, 15.66 mCi of 18-FDG was | | | injected IV at 1:29 p.m., and 60 minutes post-injection CT | | | attenuation- corrected images and PET images were obtained from the | | | skull base to the mid thighs. Axial PET, whole body CT, fused, | | | coronal PET, sagittal PET and coronal rotating MIP cine images were | | | obtained. FINDINGS: HEAD/NECK: There is normal physiologic | | | uptake within the visualized brain parenchyma. No pathologically | | | enlarged or FDG avid cervical lymph nodes are present. No abnormal | | | focal increased FDG activity is present within the head or neck. | | | CHEST: There are no hypermetabolic, abnormal configuration or | | | pathologically enlarged mediastinal, axillary or hilar lymph nodes. | | | There is mild cardiomegaly and a small pericardial effusion. There | | | is no FDG avid or suspicious pulmonary nodule. ABDOMEN: No | | | focal abnormal FDG activity is seen within the abdomen. No | | | pathologically enlarged or FDG avid mesenteric or retroperitoneal | | | lymph nodes are present.The gallbladder is surgically absent. | | | Bilateral simple renal cysts are present. PELVIS: There is | | | normal physiologic activity within the urinary tract. No | | | pathologically enlarged or FDG avid pelvic lymph nodes are | | | present. There is no focal abnormal increased area within the | | | pelvis.There is increased FDG activity throughout numerous small | | | bowel loops in the lower abdomen and pelvis. This activity is | | | likely spurious. OSSEOUS STRUCTURES: There is no FDG avid | | | lesion, acute fracture or focal destructive lesion. IMPRESSION: | | | No candidate pathologic hypermetabolic focus throughout the abdomen | | | or pelvis. REPORT SIGNED IN OTHER VENDOR SYSTEM 07/05/2016 | | | Reported by: CARTER FRAZIER MD Electronically signed by: | | | CARTER FRAZIER MD Transcribed Date/Time: 07/05/2016 01:05 | | | Slope Tender: FLUENCY | | + + + + + | Procedure Note | + + | Interface, Radiology Results - 07/05/2016 1:09 AM PDT [address] | | [place] [address] | | Name: PERRY PATTERSON ANN Phys: REMYMARISOL S : 1950 Sex: F | | CSN: [id number] MR# [id number] Exam Date: 07/04/2016 EXAM:PET-CT CLINICAL | | HISTORY:Right breast cancer diagnosed in April 2007. Elevated CEA. Assessfor | | underlying malignancy. COMPARISON:Chest CT from 05/08/2010. TECHNIQUE:The patient's | | fasting blood glucose level was 124 mg/dL. In the leftantecubital fossa, 15.66 mCi of | | 18-FDG was injected IV at 1:29 p.m.,and 60 minutes post-injection CT attenuation- | | corrected images andPET images were obtained from the skull base to the mid thighs.Axial | | PET, whole body CT, fused, coronal PET, sagittal PET andcoronal rotating MIP cine | | images were obtained. FINDINGS:HEAD/NECK: There is normal physiologic uptake within the | | visualizedbrain parenchyma. No pathologically enlarged or FDG avid cervicallymph nodes | | are present. No abnormal focal increased FDG activity ispresent within the head or | | neck. CHEST: There are no hypermetabolic, abnormal configuration orpathologically | | enlarged mediastinal, axillary or hilar lymph nodes.There is mild cardiomegaly and a | | small pericardial effusion. Thereis no FDG avid or suspicious pulmonary nodule. | | ABDOMEN: No focal abnormal FDG activity is seen within the abdomen.No pathologically | | enlarged or FDG avid mesenteric or retroperitoneallymph nodes are present.The | | gallbladder is surgically absent.Bilateral simple renal cysts are present. PELVIS: | | There is normal physiologic activity within the urinarytract. No pathologically | | enlarged or FDG avid pelvic lymph nodes arepresent. There is no focal abnormal | | increased area within thepelvis.There is increased FDG activity throughout numerous | | smallbowel loops in the lower abdomen and pelvis. This activity is likelyspurious. | | OSSEOUS STRUCTURES: There is no FDG avid lesion, acute fracture orfocal destructive | | lesion. IMPRESSION:No candidate pathologic hypermetabolic focus throughout the abdomenor | | pelvis. REPORT SIGNED IN OTHER VENDOR SYSTEM 07/05/2016 Reported by: CARTER | | MD KARIN Electronically signed by: CARTER FRAZIER MD Transcribed Date/Time: | | 07/05/2016 01:05Transcriptionist: FLUENCY | |coronal rotating MIP cine images were obtained. | | | |FINDINGS: | |HEAD/NECK: There is normal physiologic uptake within the visualized | |brain parenchyma. No pathologically enlarged or FDG avid cervical | |lymph nodes are present. No abnormal focal increased FDG activity is | |present within the head or neck. | | | |CHEST: There are no hypermetabolic, abnormal configuration or | |pathologically enlarged mediastinal, axillary or hilar lymph nodes. | |There is mild cardiomegaly and a small pericardial effusion. There | |is no FDG avid or suspicious pulmonary nodule. | | | |ABDOMEN: No focal abnormal FDG activity is seen within the abdomen. | |No pathologically enlarged or FDG avid mesenteric or retroperitoneal | |lymph nodes are present.The gallbladder is surgically absent. | |Bilateral simple renal cysts are present. | | | |PELVIS: There is normal physiologic activity within the urinary | |tract. No pathologically enlarged or FDG avid pelvic lymph nodes are | |present. There is no focal abnormal increased area within the | |pelvis.There is increased FDG activity throughout numerous small | |bowel loops in the lower abdomen and pelvis. This activity is likely | |spurious. | | | |OSSEOUS STRUCTURES: There is no FDG avid lesion, acute fracture or | |focal destructive lesion. | | | |IMPRESSION: | |No candidate pathologic hypermetabolic focus throughout the abdomen | |or pelvis. | | | | | | REPORT SIGNED IN OTHER VENDOR SYSTEM 07/05/2016 | |Reported by: CARTER FRAZIER MD | | | |Electronically signed by: CARTER FRAZIER MD | | | |Transcribed Date/Time: 07/05/2016 01:05 | |Slope Tender: GORDO | | | | | | | + + + +---------+ + + | Performing | Address | City/State/Zipcode | Phone Number | | Organization | | | | + +---------+ + + | [facility] | | | | | RADIOLOGY | | | | + +---------+ + + documented in this encounter Visit Diagnoses + + | Diagnosis | + + | Malignant neoplasm of right female breast, unspecified site of breast | + + documented in this encounter"
--- OUTSIDE RECORDS SUMMARY | ~2018-09-10 | XMS | Encounter Summary ---
Demographics + + + | Address | [address] | | | [place] [address] | + + + | Home Phone | | + + + | Preferred Language | Unknown | + + + | Marital Status | | + + + | Jain Affiliation | NON | + + + | Race | White | + + + | Ethnic Group | Not or | + + + Author + + + | Author | [facility] | + + + | Organization | [facility] | + + + | Address | Unknown | + + + | Phone | Unavailable | + + + Support + + + + + | Name | Relationship | Address | Phone | + + + + + | Ted Casas | ECON | [address] | | | | | [place] | | | | | [address] | | + + + + + | Carmen Renteria | ECON | [address] | | | | | [place] | | | | | [address] | | + + + + + | Vince Loredo | ECON | [place] | | + + + + + Care Team Providers + +------+ + | Care Cvt Tech Name | Role | Phone | + +------+ + | Dominick Clark | PCP | | + +------+ + Encounter Details +--------+ + + + + | Date | Type | Department | Care Team | Description | +--------+ + + + + | 12/26/ | Document-Sc | [facility] | Erna Rainey, | | | 2016 | steven | Center - Medical | MD [address] | | | | | Oncology [address] | [place], [place] | | | | | Street The | [address] | | | | | [place] | [phone] | | | | | [address] | | | | | | [phone] | | | +--------+ + + + [...] | + +--------+ + + + | OUTSIDE RADIOLOGY - | | 12/26/2015 | | Results for this | | CT | | 12:00 AM | | procedure are in the | | | | PDT | | results section. | + +--------+ + + + documented in this encounter Results OUTSIDE RADIOLOGY - CT (12/26/2015 12:00 AM PDT) + + + | Narrative | Performed At | + + + | | | + + + documented in this encounter Visit Diagnoses Not on filedocumented in this encounter"
--- OUTSIDE RECORDS SUMMARY | ~2018-09-10 | XMS | Encounter Summary ---
Demographics + + + | Address | [address] | | | [place] [address] | + + + | Home Phone | | + + + | Preferred Language | Unknown | + + + | Marital Status | | + + + | Protestant Affiliation | NON | + + + | Race | White | + + + | Ethnic Group | Not or | + + + Author + + + | Author | [facility] | + + + | Organization | [facility] | + + + | Address | Unknown | + + + | Phone | Unavailable | + + + Support + + + + + | Name | Relationship | Address | Phone | + + + + + | Ted Casas | ECON | [address] | | | | | [place] | | | | | [address] | | + + + + + | Carmen Renteria | ECON | [address] | | | | | [place] | | | | | [address] | | + + + + + | Vince Loredo | ECON | [place] | | + + + + + Care Team Providers + +------+ + | Care Customs Manager Name | Role | Phone | + +------+ + | Adrián Gregory MD | PCP | | + +------+ + Reason for Referral PROC - Outpatient Surgery (Routine) +--------+--------+ + + + + | Status | Reason | Specialty | Diagnoses / | Referred By | Referred To | | | | | Procedures | Contact | Contact | +--------+--------+ + + + + | Closed | | Plastic | Diagnoses | Carias, | Pls | | | | Surgery | Acquired | MD Jelena | Gen/Recon Ch | | | | | absence of | [address] | | | | | breast and | [address] | [address] | | | | | nipple | [place], [place] | Mail Code: | | | | | Procedures | [address] | [address] | | | | | REQUEST TO | Phone: | for Health | | | | | SURGERY | [phone] | and Healing, | | | | | [facility] [place] | Fax: | 5th Floor | | | | | [place] | [phone] | [place], [place] | | | | | NIPPLE/AREOL | | [address] | | | | | A | | Phone: | | | | | RECONSTRUCTI | | [phone] | | | | | ON [place] | | | | | | | REVISE | | | | | | | BREAST | | | | | | | RECONSTRUCTI | | | | | | | ON [place] EXC | | | | | | | SKIN BENIG | | | | | | | 1.1-2CM | | | | | | | TRUNK,ARM,LE | | | | | | | G [place] LAYR | | | | | | | CLOS WND | | | | | | | TRUNK,ARM,LE | | | | | | | G <2.5CM | | | +--------+--------+ + + + + Reason for Visit + + + | Reason | Comments | + + + | Post-discharge | op:05/11/08 R breast recon with TRAM flap | | follow-up | | + + + Encounter Details +--------+---------+ + + + | Date | Type | Department | Care Team | Description | +--------+---------+ + + + | 08/04/ | Office | Plastic and | Jelena Carias, | Acquired Absence of | | 2008 | Visit | Reconstructive | [address] | Breast and Nipple; | | | | Surgery at [facility] [address] | [place], [place] | Personal History of | | | | [address] | [address] | Malignant Neoplasm | | | | Code: [facility] | [phone] | of Breast | | | | for Health and | | | | | | , Floor | | | | | | [place], [place] | | | | | | [address] | | | | | | [phone] | | | +--------+---------+ + + + [...] encounter Progress Notes Jelena Carias MD - 08/04/2008 10:28 AM PDTHealing well. There is some upper medial fat necrosis. She will benefit from revision at the time of her NAC. Will scheduleElectronical ly signed by Jelena Carias MD at 08/04/2008 10:28 AM PDTLizzeth Fan MD - 08/04/2008 8:19 AM PDTSubjective: Roman Casas presents 3 months status post Delayed right breast reconstruction with pedicled TRAM flap with Jelena Carias MD. She i s here for follow up of superficial escar central wound dressing with xeroform recently. No w no dressings due to skin irritability with dressing changes. Current concerns include: swelling upper medial breast Pain controlled by: none Objective: Central abdominal wound: healing, small open area 2 cm in length, 1 cm in depth. Small fib rinous exudate at base with is white. Does not track. Firm focal swelling right medial superior breast reconstruction with mild tenderness to pal pation. No fluctuance, no erythema. Incisions right breast intact with contour irregularity medially Assessment: Status post right pedicled TRAM flap with possible seroma or fat necrosis right medial supe rior quadrant Plan: Bacitracin ointment over open area abdomen. Revision right pedicled TRAM can be scheduled in several months. Pt will follow up in 1 month with Jelena Carias MD, sooner prn. documented in this encount er Plan of Treatment Not on filedocumented as of this encounter Procedures + +--------+ + + + | Procedure Name | Priori | Date/Time | Associated Diagnosis | Comments | | | ty | | | | + +--------+ + + + | PATHOLOGY | | 04/27/2008 | | Results for this | | | | 12:00 AM | | procedure are in the | | | | PST | | results section. | + +--------+ + + + documented in this encounter Results PATHOLOGY (04/27/2008 12:00 AM PST) + + + | Narrative | Performed At | + + + | | | + + + + + | Procedure Note | + + | Wagner Vincent - 04/27/2008 12:00 AM PST | + + documented in this encounter Visit Diagnoses + + | Diagnosis | + + | Acquired absence of breast and nipple | + + | Personal history of malignant neoplasm of breast | + + documented in this encounter"
--- OUTSIDE RECORDS SUMMARY | ~2018-09-10 | XMS | Encounter Summary ---
Demographics + + + | Address | [address] | | | [place] [address] | + + + | Home Phone | | + + + | Preferred Language | Unknown | + + + | Marital Status | | + + + | Presybeterian Affiliation | NON | + + + | Race | White | + + + | Ethnic Group | Not or | + + + Author + + + | Author | [facility] | + + + | Organization | [facility] | + + + | Address | Unknown | + + + | Phone | Unavailable | + + + Support + + + + + | Name | Relationship | Address | Phone | + + + + + | Ted Casas | ECON | [address] | | | | | [place] | | | | | [address] | | + + + + + | Carmen Renteria | ECON | [address] | | | | | [place] | | | | | [address] | | + + + + + | Vince Loredo | ECON | [place] | | + + + + + Care Team Providers + +------+ + | Care International Manager Name | Role | Phone | + +------+ + | Adrián Gregory MD | PCP | | + +------+ + Encounter Details +--------+ + + + + | Date | Type | Department | Care Team | Description | +--------+ + + + + | 09/14/ | Results | NON-[facility] | Erna Rainey, | | | 2013 | Only | Department | MD [address] | | | | | | [place] | | | | | | [address] | | | | | | [phone] | | | | | | | [...] | CBC W/DIFF, REFLEX | Routin | 09/14/2013 | | Results for this | | | e | 11:36 AM | | procedure are in the | | | | PDT | | results section. | + +--------+ + + + | COMPLETE METABOLIC | Routin | 09/14/2013 | | Results for this | | SET | e | 11:36 AM | | procedure are in the | | (NA,K,CL,CO2,BUN,CRE | | PDT | | results section. | | AT,GLUC,CA,AST,ALT,B | | | | | | VINCE TOTAL,ALK | | | | | | PHOS,ALB,PROT TOTAL) | | | | | + +--------+ + + + documented in this encounter Results CBC W/DIFF, REFLEX (09/14/2013 11:36 AM PDT) + +---------+ + + + | Component | Value | Ref Range | Performed | Pathologist | | | | | At | Signature | + +---------+ + + + | WHITE BLOOD | 5.5 | 3.2 - 11.0 X10 | [facility] | | | CELL COUNT | | 3/uL | A MEDICAL | | | | | | CENTER | | + +---------+ + + + | HEMOGLOBIN | 12.9 | 12.0 - 16.0 | [facility] | | | | | g/dL | A MEDICAL | | | | | | CENTER | | + +---------+ + + + | RED BLOOD | 4.42 | 3.5 - 5.0 X10 | [facility] | | | CELL COUNT | | 6/uL | A MEDICAL | | | | | | CENTER | | + +---------+ + + + | HEMATOCRIT | 38.0 | 37.0 - 45.0 % | [facility] | | | | | | A MEDICAL | | | | | | CENTER | | + +---------+ + + + | MCV | 85.9 | 82 - 100 fL | [facility] | | | | | | A MEDICAL | | | | | | CENTER | | + +---------+ + + + | MCH | 29.2 | 28.0 - 35.0 pg | [facility] | | | | | | A MEDICAL | | | | | | CENTER | | + +---------+ + + + | MCHC | 34.0 | 32 - 36 g/dL | [facility] | | | | | | A MEDICAL | | | | | | CENTER | | + +---------+ + + + | RDW | 12.6 | 12 - 16 % | [facility] | | | | | | A MEDICAL | | | | | | CENTER | | + +---------+ + + + | PLATELET | 197 | 140 - 350 X10 3 | [facility] | | | COUNT | | | A MEDICAL | | | | | | CENTER | | + +---------+ + + + | MPV | 6.7 (L) | 7.0 - 12.0 fL | [facility] | | | | | | A MEDICAL | | | | | | CENTER | | + +---------+ + + + | NEUTROPHIL | 55.0 | 40 - 80 % | [facility] | | | % | | | A MEDICAL | | | | | | CENTER | | + +---------+ + + + | NEUTROPHIL | 3.0 | 1.3 - 8.8 x10 | [facility] | | | # | | 3/UL | A MEDICAL | | | | | | CENTER | | + +---------+ + + + | LYMPHOCYTE | 33.7 | 15 - 45 % | [facility] | | | % | | | A MEDICAL | | | | | | CENTER | | + +---------+ + + + | LYMPHOCYTE | 1.9 | 0.5 - 5.0 x10 | [facility] | | | # | | 3/UL | A MEDICAL | | | | | | CENTER | | + +---------+ + + + | EOS % | 4.6 | 0 - 5.8 % | [facility] | | | | | | A MEDICAL | | | | | | CENTER | | + +---------+ + + + | EOS # | 0.3 | 0.0 - 0.7 x10 | [facility] | | | | | 3/UL | A MEDICAL | | | | | | CENTER | | + +---------+ + + + | BASO % | 0.4 | 0 - 1.8 % | [facility] | | | | | | A MEDICAL | | | | | | CENTER | | + +---------+ + + + | BASO # | 0.0 | 0.0 - 0.2 x10 | [facility] | | | | | 3/UL | A MEDICAL | | | | | | CENTER | | + +---------+ + + + | MONOCYTE % | 6.3 | 4.2 - 11.0 % | [facility] | | | | | | A MEDICAL | | | | | | CENTER | | + +---------+ + + + | MONOCYTE # | 0.3 | 0.1 - 1.3 x10 | [facility] | | | | | 3/UL | A MEDICAL | | | | | | CENTER | | + +---------+ + + + + + | Specimen | + + | | + + + + + + + | Performing | Address | City/State/[facility] | Phone Number | | Organization | | | | + + + + + | [facility] | And | [place] [address] | [phone] | | MEDICAL CENTER | Streets | | | + + + + + COMPLETE METABOLIC SET (NA,K,CL,CO2,BUN,CREAT,GLUC,CA,AST,ALT,BILI TOTAL,ALK PHOS,ALB,PROT TOTAL) (09/14/2013 11:36 AM PDT) + +---------+ + + + | Component | Value | Ref Range | Performed | Pathologist | | | | | At | Signature | + +---------+ + + + | SODIUM, | 139 | 137 - 146 MEQ/L | [facility] | | | PLASMA | | | A MEDICAL | | | (LAB) | | | CENTER | | + +---------+ + + + | POTASSIUM, | 4.3 | 3.5 - 5.2 MEQ/L | [facility] [...] + + + | ANION GAP | 14.3 | 8 - 16 MEQ/L | [facility] | | | | | | A MEDICAL | | | | | | CENTER | | + +---------+ + + + | GLUCOSE, | 131 (H) | 70 - 105 MG/DL | [facility] | | | PLASMA | | | A MEDICAL | | | (LAB) | | | CENTER | | + +---------+ + + + | BUN, PLASMA | 13 | 8 - 30 MG/DL | [facility] | | | (LAB) | | | A MEDICAL | | | | | | CENTER | | + +---------+ + + + | CREATININE | 0.65 | 0.6 - 1.1 MG/DL | [facility] | | | PLASMA | | | A MEDICAL | | | (LAB) | | | CENTER | | + +---------+ + + + | BUN/CREATIN | 20 | 6 - 20 RATIO | [facility] | | | INE RATIO | | | A MEDICAL | | | | | | CENTER | | + +---------+ + + + | CALCIUM, | 9.7 | 8.5 - 10.8 | [facility] | | | PLASMA | | MG/DL | A MEDICAL | | | (LAB) | | | CENTER | | + +---------+ + + + | AST(SGOT) | 25 | 10 - 41 U/L | [facility] | | | | | | A MEDICAL | | | | | | CENTER | | + +---------+ + + + | ALT (SGPT) | 29 | 7 - 51 U/L | [facility] | | | | | | A MEDICAL | | | | | | CENTER | | + +---------+ + + + | ALK PHOS | 57 | 40 - 180 U/L | [facility] [...] ALBUMIN, | 4.0 | 3.5 - 5.0 G/DL | [facility] | | | PLASMA | | | A MEDICAL | | | (LAB) | | | CENTER | | + +---------+ + + + | BILIRUBIN | 0.5 | 0.2 - 1.6 MG/DL | [facility] | | | TOTAL | | | A MEDICAL | | | | | | CENTER | | + +---------+ + + + | ESTIMATED | >60.0 | >60 | [facility] | | | GFR | | | A MEDICAL | | | | | | CENTER | | + +---------+ + + + | FASTING? | UNK [...] + + + + | [facility] | [address] | [place] [address] | [phone] | | MEDICAL CENTER | Streets | | | + + + + + documented in this encounter Visit Diagnoses Not on filedocumented in this encounter"
--- OUTSIDE RECORDS SUMMARY | ~2018-09-10 | XMS | Encounter Summary ---
Demographics + + + | Address | [address] | | | [place] [address] | + + + | Home Phone | | + + + | Preferred Language | Unknown | + + + | Marital Status | | + + + | Hoahaoism Affiliation | NON | + + + | Race | White | + + + | Ethnic Group | Not or | + + + Author + + + | Author | [facility] | + + + | Organization | [facility] | + + + | Address | Unknown | + + + | Phone | Unavailable | + + + Support + + + + + | Name | Relationship | Address | Phone | + + + + + | Ted Casas | ECON | [address] | | | | | [place] | | | | | [address] | | + + + + + | Carmen Renteria | ECON | [address] | | | | | [place] | | | | | [address] | | + + + + + | Vince Loredo | ECON | [place] | | + + + + + Care Team Providers + +------+ + | Care Registered Nurses Name | Role | Phone | + +------+ + | Dominick Garcia MD | PCP | | + +------+ + Encounter Details +--------+ + + + + | Date | Type | Department | Care Team | Description | +--------+ + + + + | 01/09/ | Mill Recorder | [facility] | Erna Rainey, | | | 2015 | | Center - Medical | MD [address] | | | | | Oncology [address] | [place], [place] | | | | | The | [address] | | | | | [place] | [phone] | | | | | [address] | | | | | | [phone] | | | +--------+ + + + [...]
--- OUTSIDE RECORDS SUMMARY | ~2018-09-10 | XMS | Encounter Summary ---
Demographics + + + | Address | [address] | | | [place] [address] | + + + | Home Phone | | + + + | Preferred Language | Unknown | + + + | Marital Status | | + + + | Baptist Affiliation | NON | + + + | Race | White | + + + | Ethnic Group | Not or | + + + Author + + + | Author | [facility] | + + + | Organization | [facility] | + + + | Address | Unknown | + + + | Phone | Unavailable | + + + Support + + + + + | Name | Relationship | Address | Phone | + + + + + | Ted Casas | ECON | [address] | | | | | [place] | | | | | [address] | | + + + + + | Carmen Renteria | ECON | [address] | | | | | [place] | | | | | [address] | | + + + + + | Vince Loredo | ECON | [place] | | + + + + + Care Team Providers + +------+ + | Care Deck Specialist Name | Role | Phone | + +------+ + | Adrián Gregory MD | PCP | | + +------+ + Reason for Visit + + + | Reason | Comments | + + + | Postoperative visit | R breast recon R NAC recon. | + + + Encounter Details +--------+---------+ + + + | Date | Type | Department | Care Team | Description | +--------+---------+ + + + | 09/27/ | Office | Plastic and | Resident, Pls | Acquired Absence of | | 2008 | Visit | Reconstructive | [address] | Breast (Primary Dx) | | | | Surgery at [facility] [address] | [place] [address] | | | | | [address] Mail | | | | | | Code: [address] | | | | | | for Health and | | | | | | Healing, 5th Floor | | | | | | [place], [place] | | | | | | [address] | | | | | | [phone] | | | +--------+---------+ + + + [...] documented as of this encounter Progress Notes Maxx Farooq MD - 09/27/2008 10:32 AM PDTSubjective: Roman Casas presents 6 days status post Revision of right breast reconstruction, right n ipple-areolar complex reconstruction, and scar revision of donor site with Jelena Carias MD. Current concerns include: None Pain controlled by: percocet Objective: Right dog ear excision without evidence of infection. Right NAC looks good. 100% graft take but small amt of blood/clot under graft. Small amt of necrosis at distal tip of skate flap. Overall healing well Assessment: Doing well post op Plan: Daily dressing changes with bacitrcacin, xeroform. Pt will follow up in next sat with Jelena Carias MD, sooner prn. 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
--- OUTSIDE RECORDS SUMMARY | ~2018-09-10 | XMS | Encounter Summary ---
Demographics + + + | Address | [address] | | | [place] [address] | + + + | Home Phone | | + + + | Preferred Language | Unknown | + + + | Marital Status | | + + + | Religion Affiliation | NON | + + + | Race | White | + + + | Ethnic Group | Not or | + + + Author + + + | Author | [facility] | + + + | Organization | [facility] | + + + | Address | Unknown | + + + | Phone | Unavailable | + + + Support + + + + + | Name | Relationship | Address | Phone | + + + + + | Ted Casas | ECON | [address] | | | | | [place] | | | | | [address] | | + + + + + | Carmen Renteria | ECON | [address] | | | | | [place] | | | | | [address] | | + + + + + | Vince Loredo | ECON | [place] | | + + + + + Care Team Providers + +------+ + | Care Pantomimist Name | Role | Phone | + +------+ + PCP | Unavailable | + +------+ + Encounter Details +--------+ + + + + | Date | Type | Department | Care Team | Description | +--------+ + + + + | 05/07/ | Hospital | Cardiac | Sjh, Car Ecg Tech | | | 2009 | Encounter | Non-Invasive Testing | [address] | | | | | at [facility] | [facility] | | | | | [address] | [place], [place] [facility] | | | | | [facility] | | | | | | Mailcode: [id number] [facility] | | | | | | [facility] | | | | | | [facility], | | | | | | [place] [address] | | | | | | [phone] | | | +--------+ + + + [...] view image for the detailed interpretation from [employer] results. | CARDIOLOGY | | | | + + + + + + + + | Performing | Address | City/State/Zipcode | Phone Number | | Organization | | | | + + + + + | [facility] | [address] | [place], [place] | | | CARDIOLOGY | [address] | [address] | | + + + + + | [facility] | [address] | [place], [place] | | | CARDIOLOGY | [address] | [address] | | + + + + + documented in this encounter Visit Diagnoses + + | Diagnosis | + + | HTN Unspecified essential hypertension | + + documented in this encounter
--- OUTSIDE RECORDS SUMMARY | ~2018-09-10 | XMS | Encounter Summary ---
Demographics + + + | Address | [address] | | | [place] [address] | + + + | Home Phone | | + + + | Preferred Language | Unknown | + + + | Marital Status | | + + + | Samaritan Affiliation | NON | + + + | Race | White | + + + | Ethnic Group | Not or | + + + Author + + + | Author | [facility] | + + + | Organization | [facility] | + + + | Address | Unknown | + + + | Phone | Unavailable | + + + Support + + + + + | Name | Relationship | Address | Phone | + + + + + | Ted Casas | ECON | [address] | | | | | [place] | | | | | [address] | | + + + + + | Carmen Renteria | ECON | [address] | | | | | [place] | | | | | [address] | | + + + + + | Vince Loredo | ECON | [place] | | + + + + + Care Team Providers + +------+ + | Care Vp Software Support Name | Role | Phone | + +------+ + | Adrián Gregory MD | PCP | | + +------+ + Reason for Visit + + + | Reason | Comments | + + + | Postoperative visit | R breast recon rvsn, R NAC recon. | + + + Encounter Details +--------+---------+ + + + | Date | Type | Department | Care Team | Description | +--------+---------+ + + + | 10/06/ | Office | Plastic and | Jelena Carias, | Acquired Absence of | | 2008 | Visit | Reconstructive | [address] | Breast and Nipple | | | | Surgery at [facility] [address] | [place], [place] | (Primary Dx) | | | | [address] Mail | [address] | | | | | Code: [facility] Center | [phone] | | | | | for Health and | | | | | | Healing, 5th Floor | | | | | | [place], [place] | | | | | | [address] | | | | | | [phone] | | | +--------+---------+ + + + [...] encounter Progress Notes Jelena Carias MD - 10/06/2008 10:29 AM PDTPlastics Staff Healing well though there is a 1 cm area of the FTSG at 10:00 adjacent to the nipple which has some necrosis and will heal by secondary intention. Overall she is very pleased with th e NAC and the improved appearance and symmetry. Sutures removed from around the graft. She will f/u with me in 3 weeks 10 :29 AM PDTMaxx Farooq MD - 10/06/2008 10:06 AM PDTSubjective: Roman Casas presents weeks status post Revision of right breast reconstruction, right n ipple-areolar complex reconstruction, and scar revision of donor site with Jelena Carias MD. Current concerns include: None Pain controlled by: percocet Objective: Right dog ear excision without evidence of infection. Right NAC looks good. Good graft take but small amt of blood/clot under graft. Small amt of necrosis at distal tip of skate flap. Overall healing well Assessment: Doing well post op Plan: Daily dressing changes with bacitrcacin Pt will follow up in 3 weeks with Jelena Carias MD, sooner prn documented in this encounter Plan of Treatment Not on filedocumented as of this encounter Visit Diagnoses + + | Diagnosis | + + | Acquired absence of breast and nipple - Primary | + + documented in this encounter"
--- OUTSIDE RECORDS SUMMARY | ~2018-09-10 | XMS | Encounter Summary ---
Demographics + + + | Address | [address] | | | [place] [address] | + + + | Home Phone | | + + + | Preferred Language | Unknown | + + + | Marital Status | | + + + | Pentecostal Affiliation | NON | + + + | Race | White | + + + | Ethnic Group | Not or | + + + Author + + + | Author | [facility] | + + + | Organization | [facility] | + + + | Address | Unknown | + + + | Phone | Unavailable | + + + Support + + + + + | Name | Relationship | Address | Phone | + + + + + | Ted Patterson | ECON | [address] | | | | | [place] | | | | | [address] | | + + + + + | Carmen Renteria | ECON | [address] | | | | | [place] | | | | | [address] | | + + + + + | Vince Loredo | ECON | [place] | | + + + + + Care Team Providers + +------+ + | Care Dietetic Assistant Name | Role | Phone | + [...] [place] | | | | | [address] | [address] | | | | | | [phone] | | | | | | | [...] Erna Rainey MD - 09/14/2013 3:50 PM [facility] [address] [place] [id number] ROM[address] PATTERSON ANN DATE OF SERVICE: September [...] density a couple years from now. XF/MedQ /[id number] ROMAN PATTERSON [id number] : [id number] SERVICE DATE: 09/14/13 cc: Adrián Gregory M.D. Electronically Signed 09/15/13 1317 X MD LEON[place] Brown LEE ANN [id number] : 54 [id number] SERVICE DATE: 09/14/13 3 :14 PM PDTdocumented in this encounter Plan of Treatment Not on filedocumented as of this encounter Visit Diagnoses Not on filedocumented in this encounter"
--- OUTSIDE RECORDS SUMMARY | ~2018-09-10 | XMS | Encounter Summary ---
Demographics + + + | Address | [address] | | | [place] [address] | + + + | Home Phone | | + + + | Preferred Language | Unknown | + + + | Marital Status | | + + + | Shinto Affiliation | NON | + + + | Race | White | + + + | Ethnic Group | Not or | + + + Author + + + | Author | [facility] | + + + | Organization | [facility] | + + + | Address | Unknown | + + + | Phone | Unavailable | + + + Support + + + + + | Name | Relationship | Address | Phone | + + + + + | Ted Casas | ECON | [address] | | | | | [place] | | | | | [address] | | + + + + + | Carmen Renteria | ECON | [address] | | | | | [place] | | | | | [address] | | + + + + + | Vince Loredo | ECON | [place] | | + + + + + Care Team Providers + +------+ + | Care Fowl Blood Tester Name | Role | Phone | + +------+ + | Adrián Gregory MD | PCP | | + +------+ + Reason for Visit + + + | Reason | Comments | + + + | Follow-up visit | R breast recon and R NAC recon. | + + + Office Visit - E/M Services (Routine) +--------+--------+ + + + + | Status | Reason | Specialty | Diagnoses / | Referred By | Referred To | | | | | Procedures | Contact | Contact | +--------+--------+ + + + + | Closed | | Plastic | Diagnoses | Pls | Carias, | | | | Surgery | Acquired | Gen/Recon | MD Jelena | | | | | absence of | [facility] [address] | | | | | breast | [address] | Ave | | | | | | Mail Code: | [place], [place] | | | | | | [address] | [address] | | | | | | for Health | Phone: | | | | | | and Healing, | [phone] | | | | | | 5th Floor | Fax: | | | | | | [place], [place] | [phone] | | | | | | [address] | | | | | | | Phone: | | | | | | | [phone] | | +--------+--------+ + + + + Encounter Details +--------+---------+ + + + | Date | Type | Department | Care Team | Description | +--------+---------+ + + + | 08/02/ | Office | Plastic and | Jelena Carias, | S/P breast | | 2010 | Visit | Reconstructive | [address] | reconstruction | | | | Surgery at [facility] [address] | [place], [place] | (Primary Dx) | | | | [address] Mail | [address] | | | | | Code: [facility] Center | [phone] | | | | | for Health and | | | | | | [facility], [address] [place] [address] | | | | | | [place], [place] | | | | | | [address] | | | | | | [phone] | | | +--------+---------+ + + + [...] encounter Progress Notes Jelena Carias MD - 08/02/2010 6:28 PM PDTI personally interviewed the patient, performe d the physical examination and personally formulated the plan with Dr. Urias. I agree with the residents documentation and have documented any additions or exceptions. Roman Flores is marcela y pleased and looks great. She has no progression of the abdominal bulge and does not johnny e correction. She will contact me and f/u prn Benji Gaines MD - 08/02/2010 2:45 PM PDTHPI: Roman Casas presents is status post pedicled TRAM for delayed right breast recon on . She was seen 1 year ago with concerns about an epigastric bulge and diagnosed with puma ia. She is here for f/u today. She denies any pain or discomfort in the area. She does oc casionally notice the bulge in certain clothes. The bulge has not increased in size. She is very satisfied with her right breast reconstruction, noting the excellent symmetry with her left breast. Objective: Epigastric bulge unchanged from prior examination; just to left of midline. Nontender to p alpation. TRAM well healed, somewhat widened scar in midline. Assessment: Epigastric hernia. Asymptomatic at this time and not enlarging. Plan: Patient is not interested in surgical correction of this epigastric hernia. She will monit or this area for any changes Pt will follow up prn. BENJI URIAS MD PLASTIC AND RECONSTRUCTIVE SURGERY documented in this en counter Plan of Treatment Not on filedocumented as of this encounter Visit Diagnoses + + | Diagnosis | + + | S/P breast reconstruction - Primary Breast replaced by other means | + + documented in this encounter"
--- OUTSIDE RECORDS SUMMARY | ~2018-09-10 | XMS | Encounter Summary ---
Demographics + + + | Address | [address] | | | [place] [address] | + + + | Home Phone | | + + + | Preferred Language | Unknown | + + + | Marital Status | | + + + | Taoism Affiliation | NON | + + + | Race | White | + + + | Ethnic Group | Not or | + + + Author + + + | Author | [facility] | + + + | Organization | [facility] | + + + | Address | Unknown | + + + | Phone | Unavailable | + + + Support + + + + + | Name | Relationship | Address | Phone | + + + + + | Ted Casas | ECON | [address] | | | | | [place] | | | | | [address] | | + + + + + | Carmen Renteria | ECON | [address] | | | | | [place] | | | | | [address] | | + + + + + | Vince Loredo | ECON | [place] | | + + + + + Care Team Providers + +------+ + | Care Manager Bridge Name | Role | Phone | + [...] | | | | Street The | [address] | | | | | [place] | [phone] | | | | | [address] | | | | | | [phone] | | | +--------+ + + + [...]
--- OUTSIDE RECORDS SUMMARY | ~2018-09-10 | XMS | Encounter Summary ---
Demographics + + + | Address | [address] | | | [place] [address] | + + + | Home Phone | | + + + | Preferred Language | Unknown | + + + | Marital Status | | + + + | Sikh Affiliation | Unknown | + + + | Race | Unknown | + + + | Ethnic Group | Unknown | + + + Author + + + | Author | [facility] | + + + | Organization | [facility] | + + + | Address | Unknown | + + + | Phone | Unavailable | + + + Support + + + + + | Name | Relationship | Address | Phone | + + + + + | Ted Casas | ECON | [address] | | | | | [place] | | | | | [address] | | + + + + + | Jersey Marroquin | ECON | [place] | | | | | [address] | | + + + + + Care Team Providers + +------+ + | Care Finish Carpenter Name | Role | Phone | + +------+ + | Dominick Clark | PCP | | + +------+ + Encounter Details +--------+ + + + + | Date | Type | Department | Care Team | Description | +--------+ + + + + | 03/08/ | Documentati | [facility] | Wally Shell, | | | 2019 | on Only | [facility] | [address] | | | | | [address] | [address] [place], [place] | | | | | [place], [place] | [address] | | | | | [address] | | | | | | [phone] | | | +--------+ + + + [...] + + + as of this encounter Plan of Treatment +--------+---------+ + + + | Date | Type | Specialty | Care Team | Description | +--------+---------+ + + + | 07/09/ | Office | Physical Medicine | Wally Shell, | | | 2019 | Visit | and Rehabilitation | MD [address] | | | | | | [place] | | | | | | [address] | | | | | | | | +--------+---------+ + + + as of this encounter Visit Diagnoses Not on filein this encounter"
--- OUTSIDE RECORDS SUMMARY | ~2018-09-10 | XMS | Encounter Summary ---
Demographics + + + | Address | [address] | | | [place] [address] | + + + | Home Phone | | + + + | Preferred Language | Unknown | + + + | Marital Status | | + + + | Jew Affiliation | NON | + + + | Race | White | + + + | Ethnic Group | Not or | + + + Author + + + | Author | [facility] | + + + | Organization | [facility] | + + + | Address | Unknown | + + + | Phone | Unavailable | + + + Support + + + + + | Name | Relationship | Address | Phone | + + + + + | Ted Patterson | ECON | [address] | | | | | [place] | | | | | [address] | | + + + + + | Carmen Renteria | ECON | [address] | | | | | [place] | | | | | [address] | | + + + + + | Vince Loredo | ECON | [place] | | + + + + + Care Team Providers + +------+ + | Care Metallography Teacher Name | Role | Phone | + +------+ + | Dominick Garcia MD | PCP | | + +------+ + Encounter Details +--------+ + + + + | Date | Type | Department | Care Team | Description | +--------+ + + + + | 08/24/ | Inside | [facility] | Redd Ernareina Waldron, | | | 2015 | Referral | [facility] [address] | MD [address] | | | | Order | [address] | [place], [place] | | | | | [place] | [address] | | | | | [address] | [phone] | | | | | | | [...] on filedocumented as of this encounter Results BONE DENSITY 1 OR MORE (11/01/2015 12:39 PM PDT) + + | Specimen | + + | | + + + + + | Narrative | Performed At | + + + | [address] | [facility] | | [place] [address] | DEPARTMENT OF | | [phone] | RADIOLOGY | | Name: ROMAN PATTERSON ANN Phys: ERNA [address]ERTO | | | : 1950 Sex: F CSN: | | | [id number] MR# [id number] Exam Date: | | | 11/01/2015 EXAM: [...] Transcribed | | | Date/Time: 11/01/2015 13:29 Concrete Technician: FLUENCY | | + + + + + | Procedure Note | + + | Interface, Radiology Results - 11/01/2015 1:33 PM PDT [address] | | [facility] [place] [address] | | Name: ROMAN PATTERSON Phys: ERNA ALBERTO : 1950 Sex: F | | CSN: [id number] MR# [id number] Exam Date: 11/01/2015 EXAM:BONE DENSITY 1 [place] [...] | | |Transcribed Date/Time: 11/01/2015 13:29 | |Concrete Technician: FLUENCY | | | | | | [...] | Diagnosis | + + | Osteopenia - Primary Disorder of bone and cartilage, unspecified | + + documented in this encounter
--- OUTSIDE RECORDS SUMMARY | ~2018-09-10 | XMS | Encounter Summary ---
Demographics + + + | Address | [address] | | | [place] [address] | + + + | Home Phone | | + + + | Preferred Language | Unknown | + + + | Marital Status | | + + + | Nondenominational Affiliation | NON | + + + | Race | White | + + + | Ethnic Group | Not or | + + + Author + + + | Author | [facility] | + + + | Organization | [facility] | + + + | Address | Unknown | + + + | Phone | Unavailable | + + + Support + + + + + | Name | Relationship | Address | Phone | + + + + + | Ted Casas | ECON | [address] | | | | | [place] | | | | | [address] | | + + + + + | Carmen Renteria | ECON | [address] | | | | | [place] | | | | | [address] | | + + + + + | Vince Loredo | ECON | [place] | | + + + + + Care Team Providers + +------+ + | Care Game Protector Name | Role | Phone | + [...] Description | +--------+--------+ + + + | 09/11/ | Refill | [facility] | Erna Rainey, | Refill Request | | 2017 | | Center - Medical | MD [address] | | | | | Oncology [address] | [place], [place] | | | | | [place] | [address] | | | | | [place], [place] | [phone] | | | | | [address] | | | | | | [phone] | | | +--------+--------+ + + + [...]
--- OUTSIDE RECORDS SUMMARY | ~2018-09-10 | XMS | Encounter Summary ---
Demographics + + + | Address | [address] | | | [place] [address] | + + + | Home Phone | | + + + | Preferred Language | Unknown | + + + | Marital Status | | + + + | Gnosticism Affiliation | NON | + + + | Race | White | + + + | Ethnic Group | Not or | + + + Author + + + | Author | [facility] | + + + | Organization | [facility] | + + + | Address | Unknown | + + + | Phone | Unavailable | + + + Support + + + + + | Name | Relationship | Address | Phone | + + + + + | Ted Patterson | ECON | [address] | | | | | [place] | | | | | [address] | | + + + + + | Carmen Renteria | ECON | [address] | | | | | [place] | | | | | [address] | | + + + + + [...] + + | 08/24/ | Inside | [facility] | Redd Ernareina Waldron, | | | 2015 | Referral | [facility] [address] | MD [address] | | | | Order | [address] | [place], [place] | | | | | [place] | [address] | | | | | [address] | [phone] | | | | | | | [...] Street | [facility] | | [place] [address] | DEPARTMENT OF | | [phone] | RADIOLOGY | | Name: ROMAN PATTERSON ANN Phys: ERNA ALBERTO | | | : 1950 Sex: F CSN: | | | [id number] MR# [id number] Exam Date: | | | 11/01/2015 EXAM: [...] Transcribed | | | Date/Time: 11/01/2015 13:29 Psychologist Counseling: FLUENCY | | + + + + + | Procedure Note | + + | Interface, Radiology Results - 11/01/2015 1:33 PM PDT [address] | | [facility] [place] [address] | | Name: ROMAN PATTERSON Phys: ERNA ALBERTO : 1950 Sex: F | | CSN: [id number] MR# [id number] Exam Date: 11/01/2015 EXAM:BONE DENSITY 1 [place] [...] | | |Transcribed Date/Time: 11/01/2015 13:29 | |Psychologist Counseling: FLUENCY | | | | | | [...]
--- OUTSIDE RECORDS SUMMARY | ~2018-09-10 | XMS | Encounter Summary ---
Demographics + + + | Address | [address] | | | [place] [address] | + + + | Home Phone | | + + + | Preferred Language | Unknown | + + + | Marital Status | | + + + | Mu-Ism Affiliation | NON | + + + | Race | White | + + + | Ethnic Group | Not or | + + + Author + + + | Author | [facility] | + + + | Organization | [facility] | + + + | Address | Unknown | + + + | Phone | Unavailable | + + + Support + + + + + | Name | Relationship | Address | Phone | + + + + + | Ted Casas | ECON | [address] | | | | | [place] | | | | | [address] | | + + + + + | Carmen Renteria | ECON | [address] | | | | | [place] | | | | | [address] | | + + + + + | Vince Loredo | ECON | [place] | | + + + + + Care Team Providers + +------+ + | Care Roofer Helper Name | Role | Phone | + +------+ + | Dominick Clark | PCP | | + +------+ + Encounter Details +--------+ + + + + | Date | Type | Department | Care Team | Description | +--------+ + + + + | 07/05/ | Revenue Field Agent | [facility] | Erna Rainey, | Malignant neoplasm | | 2017 | | Center - Medical | MD [address] | of upper-outer | | | | Oncology [address] | [place], [place] | quadrant of right | | | | Street The | [address] | female breast (HCC) | | | | [place] | [phone] | (Primary Dx) | | | | [address] | | | | | | [phone] | | | +--------+ + + + [...] on filedocumented as of this encounter Results CARCINOEMBRYONIC AG, SERUM (08/21/2016 2:00 PM PDT) + +-------+ + + + | Component | Value | Ref Range | Performed | Pathologist | | | | | At | Signature | + +-------+ + + + | CEA-CARCINO | 8.1 | ng/mL | [facility] | | | EMBRYONIC | | | A MEDICAL | | | AG, SERUM | | | CENTER | | + +-------+ + + + + + | Specimen | + + | Blood | + + + + + | Narrative | Performed At | + + + | Reference Range: Non-smokers: 0.0-3.0 ng/mL | [facility] | | Smokers: 0.0-5.0 ng/mL | MEDICAL CENTER | + + + + + + + + | Performing | Address | City/State/Zipcode | Phone Number | | Organization | | | | + + + + + | [facility] | [address] | [place] [address] | [phone] | | MEDICAL CENTER | Streets | | | + + + + + COMPLETE METABOLIC SET (NA,K,CL,CO2,BUN,CREAT,GLUC,CA,AST,ALT,BILI TOTAL,ALK PHOS,ALB,PROT TOTAL) (08/21/2016 2:00 PM PDT) + +---------+ + + + | Component | Value | Ref Range | Performed | Pathologist | | | | | At | Signature | + +---------+ + + + | GLUCOSE, | 205 (H) | 70 - 105 mg/dL | [facility] | | | PLASMA | | | A MEDICAL | | | (LAB) | | | CENTER | | + +---------+ + + + | BUN, PLASMA | 15 | 6 - 26 mg/dL | [facility] | | | (LAB) | | | A MEDICAL | | | | | | CENTER | | + +---------+ + + + | CREATININE, | 0.6 | 0.6 - 1.1 mg/dL | [facility] | | | PLASMA | | | A MEDICAL | | | | | | CENTER | | + +---------+ + + + | SODIUM, | 139 | 137 - 146 | [facility] | | | PLASMA | | mmol/L | A MEDICAL | | | (LAB) | | | CENTER | | + +---------+ + + + | POTASSIUM, | 3.9 | 3.4 - 5.3 | [facility] | | | PLASMA | | mmol/L | A MEDICAL | | | (LAB) | | | CENTER | | + +---------+ + + + | CHLORIDE, | 95 (L) | 96 - 106 mmol/L | [facility] | | | PLASMA | | | A MEDICAL | | | (LAB) | | | CENTER | | + +---------+ + + + | TOTAL CO2, | 26 | 18 - 30 mmol/L | [facility] | | | PLASMA | | | A MEDICAL | | | (LAB) | | | CENTER | | + +---------+ + + + | CALCIUM, | 10.2 | 8.5 - 10.8 | [facility] | | | PLASMA | | mg/dL | A MEDICAL | | | (LAB) | | | CENTER | | + +---------+ + + + | BILIRUBIN | 0.4 | 0.2 - 1.2 mg/dL | [facility] | | | TOTAL | | | A MEDICAL | | | | | | CENTER | | + +---------+ + + + | TOTAL | 7.1 | 5.8 - 8.5 g/dL | [facility] | | | PROTEIN, | | | A MEDICAL | | | PLASMA | | | CENTER | | | (LAB) | | | | | + +---------+ + + + | ALBUMIN, | 4.3 | 3.5 - 5.0 g/dL | [facility] | | | PLASMA | | | A MEDICAL | | | (LAB) | | | CENTER | | + +---------+ + + + | ALK PHOS | 76 | 32 - 180 U/L | [facility] | | | | | | A MEDICAL | | | | | | CENTER | | + +---------+ + + + | AST(SGOT) | 26 | 10 - 41 U/L | [facility] | | | | | | A MEDICAL | | | | | | CENTER | | + +---------+ + + + | ALT (SGPT) | 23 | 7 - 51 U/L | [facility] | | | | | | A MEDICAL | | | | | | CENTER | | + +---------+ + + + | EGFR | >60 | >60 mL/min | [facility] | | | - | | | A MEDICAL | | | [facility] | | | CENTER | | + +---------+ + + + | EGFR NON | >60 | >60 mL/min | [facility] | | | -MAX | | | A MEDICAL | | | [facility] | | | CENTER | | + +---------+ + + + | ANION GAP | 18 | 12 - 20 mmol/L | [facility] | | | | | | A MEDICAL | | | | | | CENTER | | + +---------+ + + + | BUN/CREATIN | 25 | 6 - 20 | [facility] | | | INE RATIO | | | A MEDICAL | | | | | | CENTER | | + +---------+ + + + | FASTING 8 | No | | [facility] | | | HOURS [place] | | | A MEDICAL | | | MORE? | | | CENTER | | + +---------+ + + + + + | Specimen | + + | Blood | + + + + + | Narrative | Performed At | + + + | GFR is estimated using the MDRD equation recommended by the | [facility] | | National Kidney Disease Education Program. Estimated GFR | [facility] | | Interpretive Information: <60 mL/min/1.73 [...] | | - Rapidly changing kidney function | | + + + + + + + + | Performing | Address | City/State/Zipcode | Phone Number | | Organization | | | | + + + + + | [facility] | [place] | [place] [address] | [phone] | | [facility] | Streets | | | + + + + + documented in this encounter Visit Diagnoses + + | Diagnosis | + + | Malignant neoplasm of upper-outer quadrant of right female breast (HCC) - Primary | | Malignant neoplasm of upper-outer quadrant of female breast | + + documented in this encounter"
--- OUTSIDE RECORDS SUMMARY | ~2018-09-10 | XMS | Encounter Summary ---
Demographics + + + | Address | [address] | | | [place] [address] | + + + | Home Phone | | + + + | Preferred Language | Unknown | + + + | Marital Status | | + + + | Hindu Affiliation | NON | + + + [...] + | Ted Casas | ECON | [address] | | | | | [place] | | | | | [address] | | + + + + + | Carmen Renteria | ECON | [address] | | | | | [place] | | | | | [address] | | + + + + + | Vince Loredo | ECON | [place] | | + + + + + Care Team Providers + +------+ + | Care Etcher Electrolytic Name | Role | Phone | + [...] Nipple | | | | Surgery at [facility] [address] | [place], [place] | (Primary Dx) | | | | [address] Mail | [address] | | | | | Code: [facility] Center | [phone] | | | | | for Health and | | | | | | Healing, 5th Floor | | | | | | [place], [place] | | | | | | [address] | | | | | | [phone] | | | +--------+---------+ + + + [...]
--- OUTSIDE RECORDS SUMMARY | ~2018-09-10 | XMS | Encounter Summary ---
Demographics + + + | Address | [address] | | | [place] [address] | + + + | Home Phone | | + + + | Preferred Language | Unknown | + + + | Marital Status | | + + + | Denominational Affiliation | NON | + + + | Race | White | + + + | Ethnic Group | Not or | + + + Author + + + | Author | [facility] | + + + | Organization | [facility] | + + + | Address | Unknown | + + + | Phone | Unavailable | + + + Support + + + + + | Name | Relationship | Address | Phone | + + + + + | Ted Casas | ECON | [address] | | | | | [place] | | | | | [address] | | + + + + + | Carmen Renteria | ECON | [address] | | | | | [place] | | | | | [address] | | + + + + + | Vince Loredo | ECON | [place] | | + + + + + Care Team Providers + +------+ + | Care Wet Finisher Name | Role | Phone | + [...] Cyn | | | | | at [facility] | [facility] | | | | | [address] | [place], [place] [facility] | | | | | [facility] | | | | | | Mailcode: [id number] [facility] | | | | | | [facility] | | | | | | [facility], | | | | | | [place] [address] | | | | | | [phone] | | | +--------+ + + + [...] view image for the detailed interpretation from [employer] results. | CARDIOLOGY | | | | + + + + + + + + | Performing | Address | City/State/Zipcode | Phone Number | | Organization | | | | + + + + + | [facility] | [address] | [place], [place] | | | CARDIOLOGY | [address] | [address] | | + + + + + | [facility] | [address] | [place], [place] | | | CARDIOLOGY | [address] | [address] | | + + + + + documented in this encounter Visit Diagnoses + + | Diagnosis | + + | HTN Unspecified essential hypertension | + + documented in this encounter
--- OUTSIDE RECORDS SUMMARY | ~2018-09-10 | XMS | Encounter Summary ---
Demographics + + + | Address | [address] | | | [place] [address] | + + + | Home Phone | | + + + | Preferred Language | Unknown | + + + | Marital Status | | + + + | Scientology Affiliation | NON | + + + [...] + | Ted Casas | ECON | [address] | | | | | [place] | | | | | [address] | | + + + + + | Carmen Renteria | ECON | [address] | | | | | [place] | | | | | [address] | | + + + + + | Vince Loredo | ECON | [place] | | + + + + + Care Team Providers + +------+ + | Care Explosives Detonator Name | Role | Phone | + +------+ + | Adrián Gregory MD | PCP | | + +------+ + Reason for Visit + + + | Reason | Comments | + + + | Post-discharge | Revision R breast recon | | follow-up | | + + + PROC - Outpatient Surgery (Routine) +--------+--------+ + [...] | Acquired | MD Jelena | Gen/Recon Chh | | | | | absence of | [address] | | | | | breast and | [address] | [address] | | | | | nipple | [facility] [place] | Mail Code: | | | | | Procedures | [address] | [facility] | | | | | REQUEST TO | Phone: | for Health | | | | | SURGERY | [phone] | and Healing, | | | | | FLOOR PLAN ADJUSTER | Fax: | 5th Floor | | | | | [place] | [phone] | [facility] [place] | | | | | NIPPLE/AREOL | | [address] | | | | | A | | Phone: | | | | | RECONSTRUCTI | | [phone] | | | | | ON SD | | | | | | | REVISE | | | | | | | BREAST | | | | | | | RECONSTRUCTI | | | | | | | ON SD EXC | | | | | | | SKIN BENIG | | | | | | | 1.1-2CM | | | | | | | TRUNK,ARM,LE | | | | | | | G SD LAYR | | | | | | | CLOS WND | | | | | | | TRUNK,ARM,LE | | | | | | | G <2.5CM | | | +--------+--------+ + + + + Encounter Details +--------+---------+ + + + | Date | Type | Department | Care Team | Description | +--------+---------+ + + + | 10/27/ | Office | Plastic and | Jelena Carias, | Acquired Absence of | | 2008 | Visit | Reconstructive | MD [address] | Breast (Primary Dx) | | | | Surgery at [facility] [address] | [facility] [place] | | | | | [address] Mail | [address] | | | | | Code: [facility] Center | [phone] | | | | | for Health and | | | | | | [facility], [facility] Floor | | | | | | [place], [place] | | | | | | [address] | | | | | | [phone] | | | +--------+---------+ + + + [...] encounter Progress Notes Jelena Carias MD - 10/27/2008 6:34 PM PDTLooks great - few remaining sutures removed. Photos done today. She will return in 6 monthsElectronically signed by MD francy Simental t 10/27/2008 6:34 PM PDTFishGuillermo dubois MD - 10/27/2008 3:32 PM PDTSubjective: Roman Casas presents 6 weeks post Right NAC reconstruction. Is doing well and is pleased with her result. Objective: NAC healing well and in good position. Symmetry achieved. A few sutures still present. Assessment: Doing very well. Plan: Remove remaining sutures. Photos were taken today. Pt will follow up in 6 months with Jelena Carias MD, sooner prn. 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
--- OUTSIDE RECORDS SUMMARY | ~2018-09-10 | XMS | Encounter Summary ---
Demographics + + + | Address | [address] | | | [place] [address] | + + + | Home Phone [...] + | Ted Casas | ECON | [address] | | | | | [place] | | | | | [address] | | + + + + + | Carmen Renteria | ECON | [address] | | | | | [place] | | | | | [address] | | + + + + + | Vince Loredo | ECON | [place] | | + + + + + Care Team Providers + +------+ + | Care Collection Teller Name | Role | Phone | + [...] Dx) | | | | Surgery at [facility] [address] | [place] [address] | | | | | [address] Mail | | | | | | Code: [address] | | | | | | for Health and | | | | | | Healing, 5th Floor | | | | | | [place], [place] | | | | | | [address] | | | | | | [phone] | | | +--------+---------+ + + + [...]
--- OUTSIDE RECORDS SUMMARY | ~2018-09-10 | XMS | Encounter Summary ---
Demographics + + + | Address | [address] | | | [place] [address] | + + + | Home Phone | | + + + | Preferred Language | Unknown | + + + | Marital Status | | + + + | Hindu Affiliation | NON | + + + | Race | White | + + + | Ethnic Group | Not or | + + + Author + + + | Author | [facility] | + + + | Organization | [facility] | + + + | Address | Unknown | + + + | Phone | Unavailable | + + + Support + + + + + | Name | Relationship | Address | Phone | + + + + + | Ted Casas | ECON | [address] | | | | | [place] | | | | | [address] | | + + + + + | Carmen Renteria | ECON | [address] | | | | | [place] | | | | | [address] | | + + + + + | Vince Loredo | ECON | [place] | | + + + + + Care Team Providers + +------+ + | Care Tassel Maker Name | Role | Phone | + +------+ + | Dominick Clark | PCP | | + +------+ + Encounter Details +--------+------+ + + + | Date | Type | Department | Care Team | Description | +--------+------+ + + + | 08/21/ | Lab | [facility] | | Malignant neoplasm | | 2016 | | Center - Lab [address] | | of upper-outer | | | | [address] | | quadrant of right | | | | [place], [place] | | female breast (HCC) | | | | [address] | | | | | | [phone] | | | +--------+------+ + + + [...] | CBC W/DIFF, REFLEX | Routin | 08/21/2016 | Malignant neoplasm | Results for this | | | e | 2:00 PM | of upper-outer | procedure are in the | | | | PDT | quadrant of right | results section. | | | | | female breast (HCC) | | + +--------+ + + + | CBC AND AUTO DIFF | Routin | 08/21/2016 | Malignant neoplasm | Results for this | | | e | 2:00 PM | of upper-outer | procedure are in the | | | | PDT | quadrant of right | results section. | | | | | female breast (HCC) | | + +--------+ + + + | CARCINOEMBRYONIC AG, | Routin | 08/21/2016 | Malignant neoplasm | Results for this | | SERUM | e | 2:00 PM | of upper-outer | procedure are in the | | | | PDT | quadrant of right | results section. | | | | | female breast (HCC) | | + +--------+ + + + | COMPLETE METABOLIC | Routin | 08/21/2016 | Malignant neoplasm | Results for this | | SET | e | 2:00 PM | of upper-outer | procedure are in the | | (NA,K,CL,CO2,BUN,CRE | | PDT | quadrant of right | results section. | | AT,GLUC,CA,AST,ALT,B | | | female breast (HCC) | | | VINCE TOTAL,ALK | | | | | | PHOS,ALB,PROT TOTAL) | | | | | + +--------+ + + + documented in this encounter Results CBC AND AUTO DIFF (08/21/2016 2:00 PM PDT) + + + + + + | Component | Value | Ref Range | Performed | Pathologist | | | | | At | Signature | + + + + + + | WBC COUNT | 5.8 | 3.5 - 10.8 K/cu | [facility] | | | | | mm | A MEDICAL | | | | | | CENTER | | + + + + + + | RED CELL | 5.06 | 4.00 - 5.20 | [facility] | | | COUNT | | M/cu mm | A MEDICAL | | | | | | CENTER | | + + + + + + | HEMOGLOBIN | 14.5 | 12.0 - 16.0 | [facility] | | | | | g/dL | A MEDICAL | | | | | | CENTER | | + + + + + + | HEMATOCRIT | 42.6 | 36.0 - 46.0 % | [facility] | | | | | | A MEDICAL | | | | | | CENTER | | + + + + + + | MCV | 84.2 | 80.0 - 96.0 fL | [facility] | | | | | | A MEDICAL | | | | | | CENTER | | + + + + + + | MCH | 28.6 | 28.0 - 34.7 pg | [facility] | | | | | | A MEDICAL | | | | | | CENTER | | + + + + + + | MCHC | 34.0 | 33.0 - 35.5 | [facility] | | | | | g/dL | A MEDICAL | | | | | | CENTER | | + + + + + + | RDW | 14.1 | 11.5 - 15.0 % | [facility] | | | | | | A MEDICAL | | | | | | CENTER | | + + + + + + | PLATELET | 156 | 150 - 400 K/cu | [facility] [...] + + + + | NEUTROPHIL | 43.7 (L) | 50.0 - 70.0 % | [facility] | | | % | | | A MEDICAL | | | | | | CENTER | | + + + + + + | LYMPHOCYTE | 45.7 (H) | 18.0 - 42.0 % | [facility] | | | % | | | A MEDICAL | | | | | | CENTER | | + + + + + + | MONOCYTE % | 7.3 | 3.5 - 9.0 % | [facility] | | | | | | A MEDICAL | | | | | | CENTER | | + + + + + + | EOS % | 2.6 | 1.0 - 3.0 % | [facility] | | | | | | A MEDICAL | | | | | | CENTER | | + + + + + + | BASO % | 0.7 | 0.0 - 2.0 % | [facility] | | | | | | A MEDICAL | | | | | | CENTER | | + + + + + + | NEUTROPHIL | 2.50 | 1.80 - 7.70 | [facility] | | | # | | K/cu mm | A MEDICAL | | | | | | CENTER | | + + + + + + | LYMPHOCYTE | 2.60 | 1.00 - 4.80 | [facility] | | | # | | K/cu mm | A MEDICAL | | | | | | CENTER | | + + + + + + | MONOCYTE # | 0.40 | 0.10 - 0.90 | [facility] | [...] + + + | BASO # | 0.00 | 0.00 - 0.10 | [facility] | | | | | [...] + + + | [facility] | And | [place] [address] | [phone] | | MEDICAL CENTER | Streets | | | + + + + + CARCINOEMBRYONIC AG, SERUM (08/21/2016 2:00 PM PDT) + +-------+ + + + | Component | Value | Ref Range | Performed | Pathologist | | | | | At | Signature | + +-------+ + + + | CEA-CARCINO | 8.1 | ng/mL | [facility] | | | EMBRYONIC | | | A MEDICAL | | | AG, SERUM | | | CENTER | | + +-------+ + + + + + | Specimen | + + | Blood | + + + + + | Narrative | Performed At | + + + | Reference Range: Non-smokers: 0.0-3.0 ng/mL | [facility] | | Smokers: 0.0-5.0 ng/mL | MEDICAL CENTER | + + + + + + + + | Performing | Address | City/State/Zipcode | Phone Number | | Organization | | | | + + + + + | [facility] | And | [place] [address] | [phone] | | MEDICAL CENTER | Streets | [...] (H) | 70 - 105 mg/dL | [facility] | | | PLASMA | [...] | | A MEDICAL | | | [place] | | | CENTER | | + [...] the MDRD equation recommended by the | [facility] | | National Kidney Disease Education Program. Estimated GFR | [facility] | | Interpretive Information: <60 mL/min/1.73 sq [...] | + + + + + | [facility] | And | [place] [address] | [phone] | | MEDICAL CENTER | Streets | | | + + + + + documented in this encounter Visit Diagnoses + + | Diagnosis | + + | Malignant neoplasm of upper-outer quadrant of right female breast (HCC) Malignant | | neoplasm of upper-outer quadrant of female breast | + + documented in this encounter"
--- OUTSIDE RECORDS SUMMARY | ~2018-09-10 | XMS | Encounter Summary ---
Demographics + + + | Address | [address] | | | [place] [address] | + + + | Home Phone | | + + + | Preferred Language | Unknown | + + + | Marital Status | | + + + | Restorationist Affiliation | NON | + + + | Race | White | + + + | Ethnic Group | Not or | + + + Author + + + | Author | [facility] | + + + | Organization | [facility] | + + + | Address | Unknown | + + + | Phone | Unavailable | + + + Support + + + + + | Name | Relationship | Address | Phone | + + + + + | Ted Casas | ECON | [address] | | | | | [place] | | | | | [address] | | + + + + + | Carmen Renteria | ECON | [address] | | | | | [place] | | | | | [address] | | + + + + + | Vince Loredo | ECON | [place] | | + + + + + Care Team Providers + +------+ + | Care Product Management Manager Name | Role | Phone | + +------+ + | Adrián Gregory MD | PCP | | + +------+ + Encounter Details +--------+ + + + + | Date | Type | Department | Care Team | Description | +--------+ + + + + | 07/24/ | Results | [facility] | Erna Rainey, | | | 2012 | Only | Department | MD [address] | | | | | | [place] | | | | | | [address] | | | | | | [phone] | | | | | | | [...] BONE DENSITY 1 [place] | Routin | 07/24/2012 | | Results for this | | MORE | e | 9:36 AM | | procedure are in the | | | | PDT | | results section. | + +--------+ + + + documented in this encounter Results BONE DENSITY 1 OR MORE (07/24/2012 9:36 AM PDT) + + | Specimen | + + | | + + + + + | Narrative | Performed At | + + + | Current Height: 156.0cm Current | [facility] | | Weight: 76.0kg Examination: Bone Mineral Densitometry was | DEPARTMENT OF | | performed using a [employer] QDR scanner. Indication: The | RADIOLOGY | | patient is a 62 year old female with a history of breast | | | cancer treated with anastrozole. Baseline bone mineral density | | | (BMD) assessment. L1 and L4 were excluded from all analyses to | | | improve accuracy. T Score of the AP lumbar spine (L2 & L3) is -1.6, | | | left femoral neck is -0.4, left total hip is 0.8. Age matched Z | | | Scores: The AP lumbar spine (L2 & L3) is -0.2, left femoral neck | | | is 0.9, left total hip is 1.8. BMD: AP lumbar spine (L2 & L3) BMD is | | | 0.879g/cm2, left femoral neck BMD is 0.807g/cm2, left total hip BMD | | | is 1.039g/cm2. IMPRESSION: The patient has OSTEOPENIA as determined | | | by WHO criteria. A routine follow up bone mineral density | | | assessment is recommended in two years. World Health Organization | | | criteria for BMD classifies patients as Normal (T-score at or above | | | -1.0), Osteopenic (T-score between -1.0 and -2.5), or Osteoporotic | | | (T-score at or below -2.5). WHO criteria is based on bone mineral | | | density in white females. Osteoporosis cannot be diagnosed in males | | | under age 50 or premenopausal women on the basis of bone mineral | | | density alone. Z-scores are preferred and a Z-score of -2.0 or lower | | | is defined as "below the expected range for age" according to the | | | International Society of Clinical Densitometry. adr | | + + + + + | Procedure Note | + + | Interface, Radiology Results - 01/06/2015 10:35 AM PDT Current Height: 156.0cm | | Current Weight: 76.0kgExamination: Bone Mineral Densitometry was performed using a | | [employer] QDR scanner.Indication: The patient is a 62 year old female | | with ahistory of breast cancer treated with anastrozole. Baseline bonemineral density | | (BMD) assessment.L1 and L4 were excluded from all analyses to improve accuracy.T Score | | of the AP lumbar spine (L2 & L3) is -1.6, left femoral neckis -0.4, left total hip is | | 0.8.Age matched Z Scores: The AP lumbar spine (L2 & L3) is -0.2, leftfemoral neck is | | 0.9, left total hip is 1.8.BMD: AP lumbar spine (L2 & L3) BMD is 0.879g/cm2, left | | femoral neckBMD is 0.807g/cm2, left total hip BMD is 1.039g/cm2.IMPRESSION: The patient | | has OSTEOPENIA as determined by WHOcriteria. A routine follow up bone mineral density | | assessment isrecommended in two years.World Health Organization criteria for BMD | | classifies patients asNormal (T-score at or above -1.0), Osteopenic (T-score between | | -1.0and -2.5), or Osteoporotic (T-score at or below -2.5). WHO criteriais based on bone | | mineral density in white females.Osteoporosis cannot be diagnosed in males under age 50 | | orpremenopausal women on the basis of bone mineral density alone.Z-scores are preferred | | and a Z-score of -2.0 or lower is defined as"below the expected range for age" according | | to the InternationalSociety of Clinical Densitometry.adr | |Normal (T-score at or above -1.0), Osteopenic (T-score between -1.0 | |and -2.5), or Osteoporotic (T-score at or below -2.5). WHO criteria | |is based on bone mineral density in white females. | |Osteoporosis cannot be diagnosed in males under age 50 or | |premenopausal women on the basis of bone mineral density alone. | |Z-scores are preferred and a Z-score of -2.0 or lower is defined as | |"below the expected range for age" according to the International | |Society of Clinical Densitometry. | |adr | + + + +---------+ + + | Performing | Address | City/State/Zipcode | Phone Number | | Organization | | | | + +---------+ + + | [facility] | | | | [facility] | | | | + +---------+ + + documented in this encounter Visit Diagnoses Not on filedocumented in this encounter
--- OUTSIDE RECORDS SUMMARY | ~2018-09-10 | XMS | Encounter Summary ---
Demographics + + + | Address | [address] | | | [place] [address] | + + + | Home Phone | | + + + | Preferred Language | Unknown | + + + | Marital Status | | + + + | Pentecostalism Affiliation | NON | + + + | Race | White | + + + | Ethnic Group | Not or | + + + Author + + + | Author | [facility] | + + + | Organization | [facility] | + + + | Address | Unknown | + + + | Phone | Unavailable | + + + Support + + + + + | Name | Relationship | Address | Phone | + + + + + | Ted Casas | ECON | [address] | | | | | [place] | | | | | [address] | | + + + + + | Carmen Renteria | ECON | [address] | | | | | [place] | | | | | [address] | | + + + + + | Vince Loredo | ECON | [place] | | + + + + + Care Team Providers + +------+ + | Care Mathematician Research Name | Role | Phone | + +------+ + | Dominick Garcia MD | PCP | | + +------+ + Encounter Details +--------+------+ + + + | Date | Type | Department | Care Team | Description | +--------+------+ + + + | 05/16/ | Lab | [facility] | | Malignant neoplasm | | 2017 | | Center - Lab [address] | | of female breast, | | | | The | | unspecified | | | | [place], [place] | | laterality, | | | | [address] | | unspecified site of | | | | [phone] | | breast (HCC) | +--------+------+ + + + Social [...] | CBC W/DIFF, REFLEX | Routin | 05/16/2016 | Malignant neoplasm | Results for this | | | e | 2:33 PM | of female breast, | procedure are in the | | | | PST | unspecified | results section. | | | | | laterality, | | | | | | unspecified site of | | | | | | breast (HCC) | | + +--------+ + + + | CBC AND AUTO DIFF | Routin | 05/16/2016 | Malignant neoplasm | Results for this | | | e | 2:33 PM | of female breast, | procedure are in the | | | | PST | unspecified | results section. | | | | | laterality, | | | | | | unspecified site of | | | | | | breast (HCC) | | + +--------+ + + + | CARCINOEMBRYONIC AG, | Routin | 05/16/2016 | Malignant neoplasm | Results for this | | SERUM | e | 2:33 PM | of female breast, | procedure are in the | | | | PST | unspecified | results section. | | | | | laterality, | | | | | | unspecified site of | | | | | | breast (HCC) | | + +--------+ + + + | CA 27-29, SERUM | Routin | 05/16/2016 | Malignant neoplasm | Results for this | | | e | 2:33 PM | of female breast, | procedure are in the | | | | PST | unspecified | results section. | | | | | laterality, | | | | | | unspecified site of | | | | | | breast (HCC) | | + +--------+ + + + | COMPLETE METABOLIC | Routin | 05/16/2016 | Malignant neoplasm | Results for this | | SET | e | 2:33 PM | of female breast, | procedure are in the | | (NA,K,CL,CO2,BUN,CRE | | PST | unspecified | results section. | | AT,GLUC,CA,AST,ALT,B | | | laterality, | | | VINCE TOTAL,ALK | | | unspecified site of | | | PHOS,ALB,PROT TOTAL) | | | breast (HCC) | | + +--------+ + + + documented in this encounter Results CBC AND AUTO DIFF (05/16/2016 2:33 PM PST) + +---------+ + + + | Component | Value | Ref Range | Performed | Pathologist | | | | | At | Signature | + +---------+ + + + | WBC COUNT | 6.2 | 3.5 - 10.8 K/cu | [facility] | | | | | mm | | | + +---------+ + + + | RED CELL | 4.99 | 4.00 - 5.20 | [facility] | | | COUNT | | M/cu mm | | | + +---------+ + + + | HEMOGLOBIN | 14.1 | 12.0 - 16.0 | [facility] | | | | | g/dL | | | + +---------+ + + + | HEMATOCRIT | 41.7 | 36.0 - 46.0 % | [facility] | | + +---------+ + + + | MCV | 83.6 | 80.0 - 96.0 fL | [facility] | | + +---------+ + + + | MCH | 28.1 | 28.0 - 34.7 pg | [facility] | | + +---------+ + + + | MCHC | 33.7 | 33.0 - 35.5 | [facility] | | | | | g/dL | | | + +---------+ + + + | RDW | 13.4 | 11.5 - 15.0 % | [facility] | | + +---------+ + + + | PLATELET | 179 | 150 - 400 K/cu | [facility] | | | COUNT | | mm | | | + +---------+ + + + | MPV | 7.7 (L) | 9.7 - 12.3 fL | [facility] | | + +---------+ + + + | NEUTROPHIL | 51.1 | 50.0 - 70.0 % | [facility] | | | % | | | | | + +---------+ + + + | LYMPHOCYTE | 38.0 | 18.0 - 42.0 % | [facility] | | | % | | | | | + +---------+ + + + | MONOCYTE % | 6.5 | 3.5 - 9.0 % | [facility] | | + +---------+ + + + | EOS % | 3.6 (H) | 1.0 - 3.0 % | [facility] | | + +---------+ + + + | BASO % | 0.8 | 0.0 - 2.0 % | [facility] | | + +---------+ + + + | NEUTROPHIL | 3.20 | 1.80 - 7.70 | [facility] | | | # | | K/cu mm | | | + +---------+ + + + | LYMPHOCYTE | 2.40 | 1.00 - 4.80 | [facility] | | | # | | K/cu mm | | | + +---------+ + + + | MONOCYTE # | 0.40 | 0.10 - 0.90 | [facility] | | | | | K/cu mm | | | + +---------+ + + + | EOS # | 0.20 | 0.00 - 0.50 | [facility] | | | | | K/cu mm | | | + +---------+ + + + | BASO # | 0.00 | 0.00 - 0.10 | [facility] | | | | | K/cu mm | | | + +---------+ + + + + + | Specimen | + + | Blood | + + + + + | Narrative | Performed At | + + + | New adult WBC reference ranges effective February 29, 2016 | [facility] | + + + + +---------+ + + | Performing | Address | City/State/Zipcode | Phone Number | | Organization | | | | + +---------+ + + | [facility] | | | | + +---------+ + + | [facility] | | [place] [address] | | + +---------+ + + CA 27-29, SERUM (05/16/2016 2:33 PM PST) + + + + + + | Component | Value | Ref Range | Performed | Pathologist | | | | | At | Signature | + + + + + + | CA 27-29 | 11Comment: This test | <38 U/mL | [facility] | | | | was performed using the | | DIAGNOSTICS | | | | SiemensChemiluminescent | | - [place] | | | | method. Values obtained | | | | | | fromdifferent assay | | | | | | methods cannot be | | | | | | usedinterchangeably. CA | | | | | | 27.29 levels, regardless | | | | | | ofvalue, should not be | | | | | | interpreted as | | | | | | absoluteevidence of the | | | | | | presence or absence of | | | | | | disease. | | | | + + + + + + + + | Specimen | + + | Blood | + + + + + + + | Performing | Address | City/State/Zipcode | Phone Number | | Organization | | | | + + + + + | [facility] | [address] [facility] | [place] [address] | | | - [place] | [address] | | | + + + + + CARCINOEMBRYONIC AG, SERUM (05/16/2016 2:33 PM PST) + +-------+ + + + | Component | Value | Ref Range | Performed | Pathologist | | | | | At | Signature | + +-------+ + + + | CEA-CARCINO | 8.9 | ng/mL | [facility] | | | EMBRYONIC | | | A MEDICAL | | | AG, SERUM | | | CENTER | | + +-------+ + + + + + | Specimen | + + | Blood | + + + + + | Narrative | Performed At | + + + | Reference Range: Non-smokers: 0.0-3.0 ng/mL | [facility] | | Smokers: 0.0-5.0 ng/mL | [facility] | + + + + + + + + | Performing | Address | City/State/Zipcode | Phone Number | | Organization | | | | + + + + + | [facility] | And | [place] [address] | [phone] | | MEDICAL CENTER | Streets | | | + + + + + COMPLETE METABOLIC SET (NA,K,CL,CO2,BUN,CREAT,GLUC,CA,AST,ALT,BILI TOTAL,ALK PHOS,ALB,PROT TOTAL) (05/16/2016 2:33 PM PST) + +---------+ + + + | Component | Value | Ref Range | Performed | Pathologist | | | | | At | Signature | + +---------+ + + + | GLUCOSE, | 302 (H) | 70 - 105 mg/dL | [facility] | | | PLASMA | | | A MEDICAL | | | (LAB) | | | CENTER | | + +---------+ + + + | BUN, PLASMA | 14 | 6 - 26 mg/dL | [facility] | | | (LAB) | | | A MEDICAL | | | | | | CENTER | | + +---------+ + + + | CREATININE, | 0.7 | 0.6 - 1.1 mg/dL | [facility] | | | PLASMA | | | A MEDICAL | | | | | | CENTER | | + +---------+ + + + | SODIUM, | 138 | 137 - 146 | [facility] | [...] + + + | TOTAL CO2, | 24 | 18 - 30 mmol/L | [facility] | | | PLASMA | | | A MEDICAL | | | (LAB) | | | CENTER | | + +---------+ + + + | CALCIUM, | 9.6 | 8.5 - 10.8 | [facility] | [...] +---------+ + + + | TOTAL | 6.9 | 5.8 - 8.5 g/dL | [facility] | | | PROTEIN, | | | A MEDICAL | | | PLASMA | | | CENTER | | | (LAB) | | | | | + +---------+ + + + | ALBUMIN, | 4.2 | 3.5 - 5.0 g/dL | [facility] | | | PLASMA | | | A MEDICAL | | | (LAB) | | | CENTER | | + +---------+ + + + | ALK PHOS | 85 | 32 - 180 U/L | [facility] | | | | | | A MEDICAL | | | | | | CENTER | | + +---------+ + + + | AST(SGOT) | 23 | 10 - 41 U/L | [facility] | | | | | | A MEDICAL | | | | | | CENTER | | + +---------+ + + + | ALT (SGPT) | 19 | 7 - 51 U/L | [facility] | | | | | | A MEDICAL | | | | | | CENTER | | + +---------+ + + + | EGFR | >60 | >60 mL/min | [facility] | | | - | | | A MEDICAL | | | [place] | | | CENTER | | + +---------+ + + + | EGFR NON | >60 | >60 mL/min | [facility] | | | -MAX | | | A MEDICAL | | | [place] | | | CENTER | | + +---------+ + + + | ANION GAP | 19 | 12 - 20 mmol/L | [facility] | | | | | | A MEDICAL | | | | | | CENTER | | + +---------+ + + + | BUN/CREATIN | 20 | 6 - 20 | [facility] | [...] the MDRD equation recommended by the | [facility] | | National Kidney Disease Education Program. Estimated GFR | [facility] | | Interpretive Information: <60 mL/min/1.73 [...] | + + + + + | [facility] | And | [place] [address] | [phone] | | [facility]ICAL [facility] | Street | | | + + + + + documented in this encounter Visit Diagnoses + + | Diagnosis | + + | Malignant neoplasm of female breast, unspecified laterality, unspecified site of | | breast | + + documented in this encounter"
--- OUTSIDE RECORDS SUMMARY | ~2018-09-10 | XMS | Encounter Summary ---
Demographics + + + | Address | [address] | | | [place] [address] | + + + | Home Phone | | + + + | Preferred Language | Unknown | + + + | Marital Status | | + + + | Taoism Affiliation | NON | + + + | Race | White | + + + | Ethnic Group | Not or | + + + Author + + + | Author | [facility] | + + + | Organization | [facility] | + + + | Address | Unknown | + + + | Phone | Unavailable | + + + Support + + + + + | Name | Relationship | Address | Phone | + + + + + | Ted Casas | ECON | [address] | | | | | [place] | | | | | [address] | | + + + + + | Carmen Renteria | ECON | [address] | | | | | [place] | | | | | [address] | | + + + + + | Vince Loredo | ECON | [place] | | + + + + + Care Team Providers + +------+ + | Care Hog Grader Name | Role | Phone | + [...] [place], [place] | | | | | [place] | [address] | | | | | [place], [place] | [phone] | | | | | [address] | | | | | | [phone] | | | +--------+--------+ + + + [...]
--- OUTSIDE RECORDS SUMMARY | ~2018-09-10 | XMS | Encounter Summary ---
Demographics + + + | Address | [address] | | | [place] [address] | + + + | Home Phone | | + + + | Preferred Language | Unknown | + + + | Marital Status | | + + + | Sabianism Affiliation | Unknown | + + + | Race | Unknown | + + + | Ethnic Group | Unknown | + + + Author + + + | Author | [facility] | + + + | Organization | [facility] | + + + | Address | Unknown | + + + | Phone | Unavailable | + + + Support + + + + + | Name | Relationship | Address | Phone | + + + + + | Ted Casas | ECON | [address] | | | | | [place] | | | | | [address] | | + + + + + | Jersey Marroquin | ECON | [place] | | | | | [address] | | + + + + + Care Team Providers + +------+ + | Care Electric Organ Inspector And Repairer Name | Role | Phone | + [...] Closed | | Radiology | Diagnoses | Suleman, | [facility] | | | | | Numbness | MD Wally | [address] | | | | | Procedures | [address] | | | | | MRI lumbar | [address] | [place], [place] | | | | | spine | Drive | [address] Phone: | | | | | without | [employer] [employer] [employer], [place] | [phone] | | | | | contrast | [address] | Fax: | | | | | | Phone: | [phone] | | | | | | [phone] | | | | | | | Fax: | | | | | | | [phone] | | +--------+--------+ + + + + MRI/CAT Scan (Routine) +--------+--------+ + + + + | Status | Reason | Specialty | Diagnoses / | Referred By | Referred To | | | | | Procedures | Contact | Contact | +--------+--------+ + + + + | Closed | | Radiology | Diagnoses | Suleman, | [facility] | | | | | Numbness | MD Wally | [address] | | | | | Procedures | [address] | | | | | MRI lumbar | [address] | [place], [place] | | | | | spine | Drive | [address] Phone: | | | | | without | [place] | [phone] | | | | | contrast | [address] | Fax: | | | | | | Phone: | [phone] | | | | | | [phone] | | | | | | | Fax: | | | | | | | [phone] | | +--------+--------+ + + + + Reason for Visit MRI/CAT Scan (Routine) +--------+--------+ + + + + | Status | Reason | Specialty | Diagnoses / | Referred By | Referred To | | | | | Procedures | Contact | Contact | +--------+--------+ + + + + | Closed | | Radiology | Diagnoses | Suleman, | [facility] | | | | | Numbness | MD Wally | [address] | | | | | Procedures | [address] | | | | | MRI lumbar | [address] | [place] | | | | | spine | Drive | [address] Phone: | | | | | without | [place] | [phone] | | | | | contrast | [address] | Fax: | | | | | | Phone: | [phone] | | | | | | [phone] | | | | | | | Fax: | | | | | | | [phone] | | +--------+--------+ + + + + Encounter Details +--------+ + + + + | Date | Type | Department | Care Team | Description | +--------+ + + + + | 08/05/ | Hospital | [facility] | Wally Shell, | Numbness | | 2019 | Encounter | [facility] | [address] | | | | | MRI [address] | [address] [place] [employer], [place] | | | | | [address] | [address] | | | | | [place] [address] | | | | | | [phone] | | | +--------+ + + + [...] + + + as of this encounter Medications at Time of Discharge + + + +---------+ + + | Medication | Sig. | Disp. | Refills | Start | End Date | | | | | | Date | | + + + +---------+ + + | amitriptyline | Take 100 mg by mouth | | | | | | (ELAVIL) 50 MG | nightly. | | | | | | tablet | | | | | | + + + +---------+ + + | bisacodyl | Place 1 suppository | 1 | 0 | 12/25/19 | | | (DULCOLAX) 10 MG | rectally the day | supposito | | 16 | | | suppository | before the CT scan | ry | | | | + + + +---------+ + + | esomeprazole | Take 40 mg by mouth | | | | | | (NEXIUM) 20 MG | every morning before | | | | | | capsule | breakfast. | | | | | + + + +---------+ + + | fenofibrate | Take 160 mg by mouth | | | | | | (TRIGLIDE) 160 MG | daily. | | | | | | tablet | | | | | | + + + +---------+ + + | FLUoxetine | Take 20 mg by mouth | | | | | | (PROZAC) 20 MG | daily. | | | | | | capsule | | | | | | + + + +---------+ + + | furosemide (LASIX) | Take 40 mg by mouth | | | | | | 20 MG tablet | daily. | | | | | + + + +---------+ + + | glucagon 1 MG | Inject 1 mg into the | | | | | | injection | vein. | | | | | + + + +---------+ + + | insulin aspart | 20 units at | 30 mL | 12 | // | | | (NOVOLOG FLEXPEN) | breakfast, 15 units | | | 16 | | | 100 UNIT/ML | at lunch, at 30 | | | | | | injection | units at dinner; | | | | | | | subq | | | | | + + + +---------+ + + | irbesartan | Take 300 mg by mouth | | | | | | (AVAPRO) 300 MG | daily. | | | | | | tablet | | | | | | + + + +---------+ + + | levothyroxine | Take 75 mcg by mouth | | | | | | (SYNTHROID) 75 MCG | every morning | | | | | | tablet | before breakfast. | | | | | + + + +---------+ + + | metoprolol | Take 50 mg by mouth | | | | | | (TOPROL-XL) 50 MG 24 | daily. | | | | | | hr tablet | | | | | | + + + +---------+ + + | potassium chloride | Take 20 mEq by mouth | | | | | | (K-DUR) 10 MEQ | 3 (three) times | | | | | | tablet | daily. | | | | | + + + +---------+ + + | rosuvastatin | Take 40 mg by mouth | | | | | | (CRESTOR) 40 MG | nightly. | | | | | | tablet | | | | | | + + + +---------+ + + | | Take 1 tablet by | | | | | | sitagliptan-metformi | mouth 2 (two) times | | | | | | n (LACEY) 50-1000 | daily with meals. | | | | | | MG per tablet | | | | | | + + + +---------+ + + | anastrozole | Take 1 mg by mouth | | | | | | (ARIMIDEX) 1 MG | daily. | | | | 9 | | tablet | | | | | | + + + +---------+ + + | barium (VARIBAR) | Take barium oral | 3 | 0 | 12/25/19 | | | 40 % SUSP | prep per included | Bottle | | 16 | 9 | | | written | | | | | | | instructions. | | | | | + + + +---------+ + + | bisacodyl | Take 2 tablets by | 2 | 0 | 12/25/19 | | | (DULCOLAX) 5 MG EC | mouth the day before | tablet | | 16 | 9 | | tablet | CT exam. | | | | | + + + +---------+ + + | | Take 1 tablet by | | | | | | HYDROcodone-acetamin | mouth every 4 (four) | | | | 9 | | ophen (NORCO) 5-325 | hours as needed for | | | | | | MG per tablet | Pain. | | | | | + + + +---------+ + + | insulin glargine | Inject 65 Units into | 30 mL | 11 | 10/27/19 | | | (LANTUS SOLOSTAR) | the skin nightly. | | | 16 | 9 | | 100 UNIT/ML | | | | | | | injection | | | | | | + + + +---------+ + + | LORazepam (ATIVAN) | Take 0.5 mg by mouth | | | | | | 0.5 MG tablet | every 8 (eight) | | | | 9 | | | hours as needed for | | | | | | | Anxiety. | | | | | + + + +---------+ + + | magnesium citrate | Take the day before | 296 mL | 0 | 12/25/19 | | | solution | CT scan | | | 16 | 9 | + + + +---------+ + + | | Take 1 tablet by | | | | | | oxyCODONE-acetaminop | mouth every 6 (six) | | | | 9 | | hen (PERCOCET) 5-325 | hours as needed for | | | | | | MG per tablet | Pain. | | | | | + + + +---------+ + + as of this encounter Plan of Treatment +--------+---------+ + + + | Date | Type | Specialty | Care Team | Description | +--------+---------+ + + + | 10/21/ | Office | Physical Medicine | Wally Shell, | | | 2018 | Visit | and Rehabilitation | MD Bart [address] | | | | | | Drive [place], [place] | | | | | | [address] | | | | | | | | +--------+---------+ + + + as of this encounter Procedures + +--------+ [...] section. | + +--------+ + + + in this encounter Results MRI lumbar spine without [...] | + + + + + | [facility] | [address] | [place] [address] | | + + + + + in this encounter Visit Diagnoses + + | Diagnosis | + + | Numbness | + + | Disturbance of skin sensation | + +"
--- OUTSIDE RECORDS SUMMARY | ~2018-09-10 | XMS | Encounter Summary ---
Demographics + + + | Address | [address] | | | [place] [address] | + + + | Home Phone | | + + + | Preferred Language | Unknown | + + + | Marital Status | | + + + | Anabaptism Affiliation | NON | + + + [...] + | Ted Casas | ECON | [address] | | | | | [place] | | | | | [address] | | + + + + + | Carmen Renteria | ECON | [address] | | | | | [place] | | | | | [address] | | + + + + + | Vince Loredo | ECON | [place] | | + + + + + Care Team Providers + +------+ + | Care Shipping Supervisor Name | Role | Phone | + [...] Description | +--------+--------+ + + + | 12/31/ | Refill | [facility] | Eloisa Mota CHEMICAL STRENGTH TESTER | Refill Request | | 2016 | | [place] [facility] | [address] | | | | | Oncology [address] | [facility] [place] [address] | | | | | [place] | [phone] | | | | | [place], [place] | | | | | | [address] | | | | | | [phone] | | | +--------+--------+ + + + [...]
--- OUTSIDE RECORDS SUMMARY | ~2018-09-10 | XMS | Clinical Summary ---
Demographics + + + | Address | [address] | | | [place] [address] | + + + | Home Phone | | + + + | Preferred Language | Unknown | + + + | Marital Status | | + + + | Mosque Affiliation | Unknown | + + + | Race | Unknown | + + + | Ethnic Group | Unknown | + + + Author + + + | Author | [facility] | + + + | Organization | [facility] | + + + | Address | Unknown | + + + | Phone | Unavailable | + + + Support + + + + + | Name | Relationship | Address | Phone | + + + + + | Ted Patterson | ECON | [address] | | | | | [place] | | | | | [address] | | + + + + + | Jersey Marroquin | ECON | [place] | | | | | [address] | | + + + + + Care Team Providers + +------+ + | Care Wrap Turner Name | Role | Phone | + [...] | | | | | | [place], [place] | | | | | | [address] | | | | | | | [...] | + + + + + | [facility] | [address] | [place] [address] | | + + + + + [...] +------+-------+ + | MEDICARE | MEDICA | [id number] | | | [address] | | | RE | | | | [place], [place] [address] | | | YOBANY | | | | | | | AD | | | | | + +--------+ +------+-------+ + | COMMERCIAL OTHER | COMMER | [id number] | | | | | | CIAL [...] | Self | [birth year] Home: | [address] | | | al/Partha | | 2 | [phone] [place] | | | jitendra | | | [phone] | [address] | + +--------+ +--------+ + +
--- OUTSIDE RECORDS SUMMARY | ~2018-09-10 | XMS | Encounter Summary ---
Demographics + + + | Address | [address] | | | [place] [address] | + + + | Home Phone | | + + + | Preferred Language | Unknown | + + + | Marital Status | | + + + | Advent Affiliation | NON | + + + | Race | White | + + + | Ethnic Group | Not or | + + + Author + + + | Author | [facility] | + + + | Organization | [facility] | + + + | Address | Unknown | + + + | Phone | Unavailable | + + + Support + + + + + | Name | Relationship | Address | Phone | + + + + + | Ted Patterson | ECON | [address] | | | | | [place] | | | | | [address] | | + + + + + | Carmen Renteria | ECON | [address] | | | | | [place] | | | | | [address] | | + + + + + | Vince Loredo | ECON | [place] | | + + + + + Care Team Providers + +------+ + | Care Gallery Or Museum Guide Name | Role | Phone | + [...] [place] | | | | | [address] | [address] | | | | | | [phone] | | | | | | | [...] Erna Rainey MD - 09/14/2013 3:50 PM [facility] [address] [place] [address] [address] [place] DATE OF SERVICE: September [...] density a couple years from now. XF/MedQ /[id number] ROMAN PATTERSON [id number] : 54 [id number] SERVICE DATE: 09/14/13 cc: Adrián Gregory M.D. Electronically Signed 09/15/13 1317 X MD LEONARDO Brown LEE ANN [id number] : [id number] SERVICE DATE: 09/14/13 3 :14 PM PDTdocumented in this encounter Plan of Treatment Not on filedocumented as of this encounter Visit Diagnoses Not on filedocumented in this encounter"
--- OUTSIDE RECORDS SUMMARY | ~2018-09-10 | XMS | Encounter Summary ---
Demographics + + + | Address | [address] | | | [place] [address] | + + + | Home Phone | | + + + | Preferred Language | Unknown | + + + | Marital Status | | + + + | Congregation Affiliation | NON | + + + | Race | White | + + + | Ethnic Group | Not or | + + + Author + + + | Author | [facility] | + + + | Organization | [facility] | + + + | Address | Unknown | + + + | Phone | Unavailable | + + + Support + + + + + | Name | Relationship | Address | Phone | + + + + + | Ted Casas | ECON | [address] | | | | | [place] | | | | | [address] | | + + + + + | Carmen Renteria | ECON | [address] | | | | | [place] | | | | | [address] | | + + + + + | Vince Loredo | ECON | [place] | | + + + + + Care Team Providers + +------+ + | Care Ovens Supervisor Name | Role | Phone | [...] [place] | | | | | | [address] | | | | | | [phone] | | | | | | | [...] 0.3 | 0.1 - 1.3 x10 | [facility] | | | | | 3/UL | [facility] | | | | | | [facility] | | + +---------+ + + + + + | Specimen | + + | | + + + + + + + | Performing | Address | City/State[facility] | Phone Number | | Organization | | | | + + + + + | [facility] | And | [place] [address] | [phone] | | MEDICAL CENTER | Streets | [...] + + | [place] | [address] [place] | [place] [address] | [phone] | | MEDICAL CENTER | Streets | | | + + + + + documented in this encounter Visit Diagnoses Not on filedocumented in this encounter"
--- OUTSIDE RECORDS SUMMARY | ~2018-09-10 | XMS | Encounter Summary ---
Demographics + + + | Address | [address] | | | [place] [address] | + + + | Home Phone | | + + + | Preferred Language | Unknown | + + + | Marital Status | | + + + | Orthodoxy Affiliation | NON | + + + | Race | White | + + + | Ethnic Group | Not or | + + + Author + + + | Author | [facility] | + + + | Organization | [facility] | + + + | Address | Unknown | + + + | Phone | Unavailable | + + + Support + + + + + | Name | Relationship | Address | Phone | + + + + + | Ted Casas | ECON | [address] | | | | | [place] | | | | | [address] | | + + + + + | Carmen Renteria | ECON | [address] | | | | | [place] | | | | | [address] | | + + + + + | Vince Loredo | ECON | [place] | | + + + + + Care Team Providers + +------+ + | Care Operations Coordinator Name | Role | Phone | + +------+ + | Dominick Clark | PCP | | + +------+ + Reason for Visit + + + | Reason | Comments | + + + | Follow-up visit | Breast Ca | + + + Encounter Details +--------+---------+ + + + | Date | Type | Department | Care Team | Description | +--------+---------+ + + + | 02/20/ | Office | [facility] | Erna Rainey, | Malignant neoplasm | | 2017 | Visit | Center - Medical | MD [address] | of upper-outer | | | | Oncology [address] | [place], [place] | quadrant of right | | | | [address] | [address] | breast in female, | | | | [place] | [phone] | estrogen receptor | | | | [address] | | positive (HCC) | | | | [phone] | | (Primary Dx) | +--------+---------+ + + + Social History [...] + + + | Blood Pressure | 141/83 | 02/20/2017 12:57 PM | | | | | PST | | + + + + + | Pulse | 124 | 02/20/2017 12:57 PM | | | | | PST | | + + + + + | Temperature | 36.8 C (98.2 F) | 02/20/2017 12:57 PM | | | | | PST | | + + + + + | Respiratory Rate | - | - | | + + + + + | Oxygen Saturation | 96% | 02/20/2017 12:57 PM | | | | | PST | | + + + + + | Inhaled Oxygen | - | - | | | Concentration | | | | + + + + + | Weight | 93 kg (205 lb) | 02/20/2017 12:57 PM | | | | | PST | | + + + + + | Height | 157.5 cm (5' 2.01") | 02/20/2017 12:57 PM | | | | | PST | | + + + + + | Body Mass Index | 37.49 | 02/20/2017 12:57 PM | | | | | PST | | + + + + + documented in this encounter Progress Notes Erna Rainey MD - 02/20/2017 1:00 PM PSTFormatting of this note might be different fro m the original. DATE OF SERVICE: February 20, 2017 DIAGNOSIS: Breast cancer stage I (T1b N0 M0) diagnosed in April of 2007. CURRENT TREATMENT: Anastrozole 1 mg p.o. daily. INTERVAL HISTORY: Roman Flores returned today for a 6-month followup. She had a unremarkable 6 months. She still have hot flashes and some arthralgia but it is not disabling. She had C EA increase last year, work up including colonoscopy, which was a incomplete. She had a vir tual colonoscopy by CT December 26, 2015, which revealed no evidence of malignancy. As her CEA further increase, I ordered a PET scan, which was done in June of this year, again nega tive. Meanwhile, her CEA remains elevated but there is no further increase. She was diagnosed in April 2007. She elected to continue anastrozole beyond 5 years. Evan villarreal is overall doing well. For her arthralgia due to anastrozole, she is occasionally taking Percocet. She also carries a diagnosis of osteopenia. Her bone density has been followed. She is on calcium and vitamin D. Her last mammogram on February 06, 2016 is negative. Her next mammogram is due March of this year. Past Medical History: Diagnosis Date Breast cancer (HCC) Dyslipidemia GERD (gastroesophageal reflux disease) Hypertension Peripheral vascular disease (HCC) ROS: No new pain, some hot flashes, no weight changes, reported good appetite. PHYSICAL EXAMINATION: Last Vitals: BP 141/83 | Pulse 124 | Temp (Src) 36.8 C (98.2 F) (Tympanic) | Ht 1.575 m (5' 2.01") | Wt 93 kg (205 lb) | SpO2 96% | BMI 37.49 kg/(m^2) GENERAL APPEARANCE: She appears to be well nourished, comfortable, and not in acute distre ss. HEENT: Sclerae nonicteric, with no facial asymmetry. NECK: Supple, without palpable mass. LUNGS: Clear. HEART: Rate is regular. BREASTS: TRAM flap reconstruction of the right breast. No palpable mass bilaterally. No axillary palpable lymphadenopathies. Her surgical scar is well healed. ABDOMEN: Soft and nontender, without organomegaly or mass, with moderate obesity and a cou ple of bruises from her initial injection. EXTREMITIES: Without cyanosis. She has lymphedema in her lower extremities. Lab on 02/20/2017 Component Date Value Range GLUCOSE, PLASMA (LAB) (mg/dL) 02/20/2017 194* 70-105 BUN, PLASMA (LAB) (mg/dL) 02/20/2017 11 6-26 CREATININE, PLASMA (mg/dL) 02/20/2017 0.6 0.6-1.1 SODIUM, PLASMA (LAB) (mmol/L) 02/20/2017 141 137-146 POTASSIUM, PLASMA (LAB) (mmol/L) 02/20/2017 3.9 3.4-5.3 CHLORIDE, PLASMA (LAB) (mmol/L) 02/20/2017 100 96-106 TOTAL CO2, PLASMA (LAB) (mmol/L) 02/20/2017 28 18-30 CALCIUM, PLASMA (LAB) (mg/dL) 02/20/2017 9.3 8.5-10.8 BILIRUBIN TOTAL (mg/dL) 02/20/2017 0.4 0.2-1.2 TOTAL PROTEIN, PLASMA (LAB) (g/dL) 02/20/2017 7.1 5.8-8.5 ALBUMIN, PLASMA (LAB) (g/dL) 02/20/2017 4.3 3.5-5.0 ALK PHOS (U/L) 02/20/2017 73 32-180 AST(SGOT) (U/L) 02/20/2017 32 10-41 ALT (SGPT) (U/L) 02/20/2017 26 7-51 EGFR - [place]OS[place]AN (mL/min) 02/20/2017 >60 >60- EGFR NON -KOSOVAN (mL/min) 02/20/2017 >60 >60- ANION GAP (mmol/L) 02/20/2017 13 12-20 BUN/CREATININE RATIO ( ) 02/20/2017 18 - FASTING 8 HOURS OR MORE? 02/20/2017 No - CEA-CARCINOEMBRYONIC AG, SERUM (ng/mL) 02/20/2017 8.2 - WBC COUNT (K/cu mm) 02/20/2017 4.8 3.5-10.8 RED CELL COUNT (M/cu mm) 02/20/2017 4.90 4.00-5.20 HEMOGLOBIN (g/dL) 02/20/2017 14.0 12.0-16.0 HEMATOCRIT (%) 02/20/2017 40.9 36.0-46.0 MCV (fL) 02/20/2017 83.6 80.0-96.0 MCH (pg) 02/20/2017 28.5 28.0-34.7 MCHC (g/dL) 02/20/2017 34.1 - RDW (%) 02/20/2017 14.5 11.5-15.0 PLATELET COUNT (K/cu mm) 02/20/2017 155 150-400 MPV (fL) 02/20/2017 7.4* 7.5-11.2 NEUTROPHIL % (%) 02/20/2017 44.2* 50.0-70.0 LYMPHOCYTE % (%) 02/20/2017 45.8* 18.0-42.0 MONOCYTE % (%) 02/20/2017 7.5 3.5-9.0 EOS % (%) 02/20/2017 1.8 1.0-3.0 BASO % (%) 02/20/2017 0.7 0.0-2.0 NEUTROPHIL # (K/cu mm) 02/20/2017 2.10 1.80-7.70 LYMPHOCYTE # (K/cu mm) 02/20/2017 2.20 1.00-4.80 MONOCYTE # (K/cu mm) 02/20/2017 0.40 0.10-0.90 EOS # (K/cu mm) 02/20/2017 0.10 0.00-0.50 BASO # (K/cu mm) 02/20/2017 0.00 0.00-0.10 IMPRESSION: 1. No evidence of breast cancer recurrence. 2. Arthralgia due to anastrozole. 3. Osteopenia, stable in the past. Last DEXA scan November 01, 2015. 4. CEA increase workup negative, including colonoscopy and PET, now CEA slightly decreased and stablized. PLAN: 1. Continue Anastrozole to end of April 2017, to complete a 10 year treatment. 2. Return in 6 months for next followup. 3. She will have a mammogram in March of 2017 for her annual exam. documented in this en counter Plan of Treatment Not on filedocumented as of this encounter Results CARCINOEMBRYONIC AG, SERUM (09/10/2017 9:38 AM PDT) [...] | + + + + + | [facility] | | [place] [address] | [phone] | | [facility] | Streets | | | [...] | | A MEDICAL | | | [place] | | | CENTER | | + [...] | FASTING 8 | No | | [facility] | | | HOURS [place] | | [...] Kidney Disease Education Program. Estimated GFR | [facility] | | Interpretive Information: <60 [...] | + + + + + | [facility] | And | [place] [address] | [phone] | | MEDICAL CENTER | Streets | | | + + + + + documented in this encounter Visit Diagnoses + + | Diagnosis | + + | Malignant neoplasm of upper-outer quadrant of right breast in female, estrogen | | receptor positive (HCC) - Primary | + + documented in this encounter
--- OUTSIDE RECORDS SUMMARY | ~2018-09-10 | XMS | Encounter Summary ---
Demographics + + + | Address | [address] | | | [place] [address] | + + + | Home Phone | | + + + | Preferred Language | Unknown | + + + | Marital Status | | + + + | Mandaeism Affiliation | NON | + + + | Race | White | + + + | Ethnic Group | Not or | + + + Author + + + | Author | [facility] | + + + | Organization | [facility] | + + + | Address | Unknown | + + + | Phone | Unavailable | + + + Support + + + + + | Name | Relationship | Address | Phone | + + + + + | Ted Casas | ECON | [address] | | | | | [place] | | | | | [address] | | + + + + + | Carmen Renteria | ECON | [address] | | | | | [place] | | | | | [address] | | + + + + + | Vince Loredo | ECON | [place] | | + + + + + Care Team Providers + +------+ + | Care Barber Shop Operator Name | Role | Phone | [...] Description | +--------+---------+ + + + | 08/21/ | Office | [facility] | Erna Rainey, | Malignant neoplasm | | 2017 | Visit | Center - Medical | MD [address] | of upper-outer | | | | Oncology [address] | [place], [place] | quadrant of right | | | | [address] | [address] | female breast (HCC) | | | | [place] | [phone] | (Primary Dx) | | | | [address] | | | | | | [phone] | | | +--------+---------+ + + + [...] + + + | Blood Pressure | 140/82 | 08/21/2016 3:29 PM | | | | | PDT | | + + + + + | Pulse | 96 | 08/21/2016 3:29 PM | | | | | PDT | | + + + + + | Temperature | 36.4 C (97.5 F) | 08/21/2016 3:29 PM | | | | | PDT | | + + + + + | Respiratory Rate | - | - | | + + + + + | Oxygen Saturation | 96% | 08/21/2016 3:29 PM | | | | | PDT | | + + + + + | Inhaled Oxygen | - | - | | | Concentration | | | | + + + + + | Weight | 88.9 kg (196 lb) | 08/21/2016 3:29 PM | | | | | PDT | | + + + + + | Height | 157.5 cm (5' 2.01") | 08/21/2016 3:29 PM | | | | | PDT | | + + + + + | Body Mass Index | 35.84 | 08/21/2016 3:29 PM | | | | | PDT | | + + + + + documented in this encounter Progress Notes Erna Rainey MD - 08/21/2016 3:30 PM PDTFormatting of this note might be different fro m the original. DATE OF SERVICE: August 21, 2016 DIAGNOSIS: Breast cancer stage I (T1b N0 M0). CURRENT TREATMENT: Anastrozole 1 mg p.o. daily. INTERVAL HISTORY: Roman Florse returned today for a 3-month followup. She had CEA increase las t year, work up including colonoscopy, which was a incomplete. She had a virtual colonoscop y by CT December 26, 2015, which revealed no evidence of malignancy. As her CEA further inc rease, I ordered a PET scan, which was done in June of this year, again negative. Meanwhil e, she continue to do well clinically. She does have arthralgia from her anastrazole. She al so has mild osteopenia. She was diagnosed in April 2007. She elected to continue anastrozole beyond 5 years. Evan villarreal is overall doing well. For her arthralgia due to anastrozole, she is occasionally taking Percocet. She also carries a diagnosis of osteopenia. Her bone density has been followed. She is on calcium and vitamin D. More than 6 months ago, she was found to have a increased CEA, I incidental finding. Her last mammogram on February 06, 2016 is negative. Past Medical History: Diagnosis Date Breast cancer (HCC) Dyslipidemia GERD (gastroesophageal reflux disease) Hypertension Peripheral vascular disease (HCC) ROS: No new pain, some hot flashes, no weight changes, reported good appetite. PHYSICAL EXAMINATION: Last Vitals: There were no vitals taken for this visit. GENERAL APPEARANCE: She appears to be well [...] lymphedema in her lower extremities. Lab on 08/21/2016 Component Date Value Range GLUCOSE, PLASMA (LAB) (mg/dL) 08/21/2016 205* 70-105 BUN, PLASMA (LAB) (mg/dL) 08/21/2016 15 6-26 CREATININE, PLASMA (mg/dL) 08/21/2016 0.6 0.6-1.1 SODIUM, PLASMA (LAB) (mmol/L) 08/21/2016 139 137-146 POTASSIUM, PLASMA (LAB) (mmol/L) 08/21/2016 3.9 3.4-5.3 CHLORIDE, PLASMA (LAB) (mmol/L) 08/21/2016 95* 96-106 TOTAL CO2, PLASMA (LAB) (mmol/L) 08/21/2016 26 18-30 CALCIUM, PLASMA (LAB) (mg/dL) 08/21/2016 10.2 8.5-10.8 BILIRUBIN TOTAL (mg/dL) 08/21/2016 0.4 0.2-1.2 TOTAL PROTEIN, PLASMA (LAB) (g/dL) 08/21/2016 7.1 5.8-8.5 ALBUMIN, PLASMA (LAB) (g/dL) 08/21/2016 4.3 3.5-5.0 ALK PHOS (U/L) 08/21/2016 76 32-180 AST(SGOT) (U/L) 08/21/2016 26 10-41 ALT (SGPT) (U/L) 08/21/2016 23 7-51 EGFR - N[place]ARAGUAN (mL/min) 08/21/2016 >60 >60- EGFR NON -NICARAGUAN (mL/min) 08/21/2016 >60 >60- ANION GAP (mmol/L) 08/21/2016 18 12-20 BUN/CREATININE RATIO ( ) 08/21/2016 25 - FASTING 8 HOURS OR MORE? 08/21/2016 No - CEA-CARCINOEMBRYONIC AG, SERUM (ng/mL) 08/21/2016 8.1 - WBC COUNT (K/cu mm) 08/21/2016 5.8 3.5-10.8 RED CELL COUNT (M/cu mm) 08/21/2016 5.06 4.00-5.20 HEMOGLOBIN (g/dL) 08/21/2016 14.5 12.0-16.0 HEMATOCRIT (%) 08/21/2016 42.6 36.0-46.0 MCV (fL) 08/21/2016 84.2 80.0-96.0 MCH (pg) 08/21/2016 28.6 28.0-34.7 MCHC (g/dL) 08/21/2016 34.0 - RDW (%) 08/21/2016 14.1 11.5-15.0 PLATELET COUNT (K/cu mm) 08/21/2016 156 150-400 MPV (fL) 08/21/2016 7.7 7.5-11.2 NEUTROPHIL % (%) 08/21/2016 43.7* 50.0-70.0 LYMPHOCYTE % (%) 08/21/2016 45.7* 18.0-42.0 MONOCYTE % (%) 08/21/2016 7.3 3.5-9.0 EOS % (%) 08/21/2016 2.6 1.0-3.0 BASO % (%) 08/21/2016 0.7 0.0-2.0 NEUTROPHIL # (K/cu mm) 08/21/2016 2.50 1.80-7.70 LYMPHOCYTE # (K/cu mm) 08/21/2016 2.60 1.00-4.80 MONOCYTE # (K/cu mm) 08/21/2016 0.40 0.10-0.90 EOS # (K/cu mm) 08/21/2016 0.10 0.00-0.50 BASO # (K/cu mm) 08/21/2016 0.00 0.00-0.10 IMPRESSION: 1. No evidence of breast cancer recurrence. 2. Arthralgia due to anastrozole. 3. Osteopenia, stable in the past. Last DEXA scan November 01, 2015. 4. CEA increase workup negative, including colonoscopy and PET, now CEA slightly decreased. PLAN: 1. Refill her anastrozole. 2. Return in 6 months for next followup. 3. Plan to complete her anastrozole in 2018, to complete a 10 year treatment. 4. She will have a mammogram in January of 2017 for her annual exam. Mónica Mary MA - 08/21/2016 3:30 PM PDTA Division Plant Engineer was offered to the patient and declined. Pt's i n room. tyler/tramaine documented in this en counter Plan of Treatment Not on filedocumented as of this encounter Results CARCINOEMBRYONIC AG, SERUM (02/20/2017 11:50 AM PST) + +-------+ + + + | Component | Value | Ref Range | Performed | Pathologist | | | | | At | Signature | + +-------+ + + + | CEA-CARCINO | 8.2 | ng/mL | [facility] | | | [facility] | | | [...] + + | [facility] | And | [place] [address] | [phone] | | [facility] | [place] | | | + + + + + COMPLETE METABOLIC SET (NA,K,CL,CO2,BUN,CREAT,GLUC,CA,AST,ALT,BILI TOTAL,ALK PHOS,ALB,PROT TOTAL) (02/20/2017 11:50 AM PST) + +---------+ + + + | Component | Value | Ref Range | Performed | Pathologist | | | | | At | Signature | + +---------+ + + + | GLUCOSE, | 194 (H) | 70 - 105 mg/dL | [facility] | | | PLASMA | | | A MEDICAL | | | (LAB) | | | CENTER | | + +---------+ + + + | BUN, PLASMA | 11 | 6 - 26 mg/dL | [facility] [...] +---------+ + + + | SODIUM, | 141 | 137 - 146 | [facility] | [...] +---------+ + + + | CHLORIDE, | 100 | 96 - 106 mmol/L | [facility] | | | PLASMA | | | A MEDICAL | | | (LAB) | | | CENTER | | + +---------+ + + + | TOTAL CO2, | 28 | 18 - 30 mmol/L | [facility] | | | PLASMA | | | A MEDICAL | | | (LAB) | | | CENTER | | + +---------+ + + + | CALCIUM, | 9.3 | 8.5 - 10.8 | [facility] | [...] + + + | ALK PHOS | 73 | 32 - 180 U/L | [facility] | | | | | | A MEDICAL | | | | | | CENTER | | + +---------+ + + + | AST(SGOT) | 32 | 10 - 41 U/L | [facility] | | | | | | A MEDICAL | | | | | | CENTER | | + +---------+ + + + | ALT (SGPT) | 26 | 7 - 51 U/L | [facility] | | | | | | A MEDICAL | | | | | | CENTER | | + +---------+ + + + | EGFR | >60 | >60 mL/min | [facility] | | | - | | | A MEDICAL | | | [place] | | | CENTER | | + +---------+ + + + | EGFR NON | >60 | >60 mL/min | [facility] | | | -MAX | | | A MEDICAL | | | [facility] | | | CENTER | | + +---------+ + + + | ANION GAP | 13 | 12 - 20 mmol/L | [facility] | | | | | | A MEDICAL | | | | | | CENTER | | + +---------+ + + + | BUN/CREATIN | 18 | 6 - 20 | [facility] | | | INE RATIO | | | A MEDICAL | | | | | | CENTER | | + +---------+ + + + | FASTING 8 | No | | [facility] | | | HOURS [place] | [...] equation recommended by the | [facility] | | National Kidney Disease Education Program. Estimated GFR | [facility] | | Interpretive Information: <60 mL/min/1.73 sq [...] | + + + + + | [facility] | And | [place] [address] | [phone] | | MEDICAL CENTER | Streets | | | + + + + + documented in this encounter Visit Diagnoses + + | Diagnosis | + + | Malignant neoplasm of upper-outer quadrant of right female breast (HCC) - Primary | | Malignant neoplasm of upper-outer quadrant of female breast | + + documented in this encounter
--- OUTSIDE RECORDS SUMMARY | ~2018-09-10 | XMS | Encounter Summary ---
Demographics + + + | Address | [address] | | | [place] [address] | + + + | Home Phone | | + + + | Preferred Language | Unknown | + + + | Marital Status | | + + + | Faith Affiliation | NON | + + + [...] + | Ted Casas | ECON | [address] | | | | | [place] | | | | | [address] | | + + + + + | Carmen Renteria | ECON | [address] | | | | | [place] | | | | | [address] | | + + + + + | Vince Loredo | ECON | [place] | | + + + + + Care Team Providers + +------+ + | Care Ear Nose And Throat Specialist Name | Role | Phone | [...] Other | | | | Surgery at [facility] [address] | | Specified | | | | [address] | | Pre-Operative | | | | Code: [facility] Center | | Examination | | | | for Health and | | | | | | Healing, 5th Floor | | | | | | [place], [place] | | | | | | [address] | | | | | | [phone] | | | +--------+---------+ + + + [...] surgeries scheduled to take place on the venus at the [facility]: Surgeries scheduled in the [facility]): registration is located on the 4th floor of [facility] (Day Surgery). Surgeries scheduled in the [facility]: registration is located on the 9th floor. Surgeries scheduled in [facility]: registration is located on the 6th floor. Surgeries scheduled in the [facility]: registration is located i n the [facility] on the first floor. For surgeries scheduled to take place at the [facility]: registration is l [...] If you use specialized medical equipment at [facility], please check with your provider before [...] | + + + + + | [facility] | [address] | [place] [address] | | | PATHOLOGY | [address] | | | + + + + + | [facility] | [address] | [place] [address] | | | PATHOLOGY | [address] [...] | + + + + + | [facility] | [address] [facility] [facility] [address] | [place] [address] | | | PATHOLOGY | [address] | | | + + + + + | [facility] | [address] [facility] [facility] [address] | [place] [address] | | | PATHOLOGY | [address] [...] | + + + + + | [facility] DEPARTMENT OF | [address] | [place] [address] | | | PATHOLOGY | [address] | | | + + + + + | [facility] | [address] | [place] [address] | | | PATHOLOGY | [address] [...] | + + + + + | [facility] | [address] [facility] | [place] [address] | | | PATHOLOGY | [address] | | | + + + + + | [facility] | [address] [facility] | [place] [address] | | | PATHOLOGY | [address] | | | + + + + + documented in this encounter Visit Diagnoses + + | Diagnosis | + + | Acquired absence of breast Acquired absence of breast and nipple | + + | Other specified pre-operative examination | + + documented in this encounter
--- OUTSIDE RECORDS SUMMARY | ~2018-09-10 | XMS | Clinical Summary ---
Demographics + + + | Address | [address] | | | [place] [address] | + + + | Home Phone | | + + + | Preferred Language | Unknown | + + + | Marital Status | | + + + | Latter-Day Affiliation | NON | + + + | Race | White | + + + | Ethnic Group | Not or | + + + Author + + + | Author | [facility] | + + + | Organization | [facility] | + + + | Address | Unknown | + + + | Phone | Unavailable | + + + Support + + + + + | Name | Relationship | Address | Phone | + + + + + | Ted Casas | ECON | [address] | | | | | [place] | | | | | [address] | | + + + + + | Carmen Renteria | ECON | [address] | | | | | [place] | | | | | [address] | | + + + + + | Vince Loredo | ECON | [place] | | + + + + + Care Team Providers + +------+ + | Care Plant Health Manager Name | Role | Phone | + +------+ + | Dominick Clark | PP | | + +------+ + Source Comments [facility] is fully live on both EpicCare Ambulatory and EpicCare InPatient.[facility] Allergies + + + + + + | Active Allergy | Reactions | Severity | Noted | Comments | | | | | Date | | + + + + + + | Cephalexin | Pruritus | | 06/02/19 | | | | | | 09 | | + + + + + + | Penicillin G | Hives | High | 01/21/20 | | | | | | 08 | | + + + + + + | Quinine | Hives | High | 08/29/19 | | | | | | 16 | | + + + + + + | Sulfa (Sulfonamide | Hives | High | 01/21/20 | | | Antibiotics) | | | 08 | | + + + + + + | Acetaminophen-Codein | Pruritus | High | 01/21/20 | | | e | | | 08 | | + + + + + + | Hydrocodone-Acetamin | Nausea/Vomiting | High | 01/21/20 | | | ophen | | | 08 | | + + + + + + Medications + + + +---------+------+------+-------+ | Medication | Sig | Dispensed | Refills | Star | End | Statu | | | | | | t | Date | s | | | | | | Date | | | + + + +---------+------+------+-------+ | potassium chloride | take 3 tablet (20 | | 0 | | | Activ | | SR 20 mEq Oral Tab | meq) by oral route | | | | | e | | Sust.Rel. | once daily with food | | | | | | | Particle/Crystal | | | | | | | + + + +---------+------+------+-------+ | CALCIUM + D 600 | 1 tab p.o. twice | | 0 | | | Activ | | (1,500)-200 mg-unit | daily | | | | | e | | Oral Tablet | | | | | | | + + + +---------+------+------+-------+ | Fluoxetine HCl 20 | Take 20 mg by mouth | | 0 | | | Activ | | mg Oral Tablet | once daily. | | | | | e | + + + +---------+------+------+-------+ | rosuvastatin | Take 40 mg by mouth | | 0 | | | Activ | | (CRESTOR) 40 mg Oral | once daily. | | | | | e | | Tablet | | | | | | | + + + +---------+------+------+-------+ | Sitagliptin | Take 50 mg by mouth | | 0 | | | Activ | | (JANUVIA) 100 mg | once daily. | | | | | e | | Oral Tablet | | | | | | | + + + +---------+------+------+-------+ | metoprolol | Take 50 mg by mouth | | 0 | | | Activ | | succinate 50 mg oral | once daily. | | | | | e | | tablet extended | | | | | | | | release 24 hr | | | | | | | + + + +---------+------+------+-------+ | pantoprazole 40 mg | Take 80 mg by mouth | | 0 | | | Activ | | oral tablet,delayed | once daily. | | | | | e | | release (/EC) | | | | | | | + + + +---------+------+------+-------+ | Fenofibrate | Take 1 tablet by | | 0 | | | Activ | | (FENOFIBRATE) 160 mg | mouth once daily. | | | | | e | | oral tablet | | | | | | | + + + +---------+------+------+-------+ | furosemide 20 mg | Take 40 mg by mouth | | 0 | | | Activ | | oral tablet | once daily. | | | | | e | + + + +---------+------+------+-------+ | irbesartan 300 mg | Take 300 mg by mouth | | 0 | | | Activ | | oral tablet | once daily. | | | | | e | + + + +---------+------+------+-------+ | levothyroxine 75 | Take 75 mcg by mouth | | 0 | | | Activ | | mcg oral tablet | once daily. | | | | | e | + + + +---------+------+------+-------+ | gabapentin 100 mg | Take 100 mg by mouth | | 0 | | | Activ | | oral capsule | three times daily. | | | | | e | + + + +---------+------+------+-------+ | insulin glargine | Inject under the | | 0 | | | Activ | | 100 unit/mL | skin (SUBC) once | | | | | e | | subcutaneous | daily at bedtime. | | | | | | | solution | Sliding scale | | | | | | + + + +---------+------+------+-------+ | NOVOLOG FLEXPEN | Sliding scale | | 0 | 11/0 | | Activ | | 100 unit/mL | | | | 3/20 | | e | | subcutaneous insulin | | | | 17 | | | | pen | | | | | | | + + + +---------+------+------+-------+ | | Take 1 tablet by | 60 | 0 | 05/3 | | Activ | | oxyCODONE-acetaminop | mouth once daily at | tablet | | 0/20 | | e | | hen (PERCOCET) 5-325 | bedtime as needed. | | | 18 | | | | mg oral | Not to exceed 12 | | | | | | | tabletIndications: | tablets per any 24 | | | | | | | Pain | hour period. | | | | | | | | Indications: Pain | | | | | | + + + +---------+------+------+-------+ Active Problems + + + | Problem | Noted Date | + + + | History of breast cancer | 09/10/2017 | + + + | S/P breast reconstruction | 06/29/2009 | + + + | Acquired absence of breast | 05/07/2008 | + + + Resolved Problems + + + + | Problem | Noted | Resolved | | | Date | Date | + + + + | Malignant neoplasm of female breast | 05/30/19 | | | | 17 | 7 | + + + + | Malignant neoplasm of right female breast | 05/30/19 | | | | 17 | 8 | + + + + + + | Overview: Right breast, upper outer quadrant | + + Social History + + + [...] recent travel history available. | + + Last Filed Vital Signs + + + + + | Vital Sign | Reading | Time Taken | Comments | + + + + + | Blood Pressure | 141/85 | 09/10/2017 10:14 AM | | | | | PDT | | + + + + + | Pulse | 95 | 09/10/2017 10:14 AM | | | | | PDT | | + + + + + | Temperature | 36.9 C (98.4 F) | 09/10/2017 10:14 AM | | | | | PDT | | + + + + + | Respiratory Rate | 16 | 09/21/2008 6:00 PM | | | | | PDT | | + + + + + | Oxygen Saturation | 94% | 09/10/2017 10:14 AM | | | | | PDT | | + + + + + | Inhaled Oxygen | - | - | | | Concentration | | | | + + + + + | Weight | 93.8 kg (206 lb 11.2 | 09/10/2017 10:14 AM | | | | oz) | PDT | | + + + + + | Height | 157.5 cm (5' 2.01") | 09/10/2017 10:14 AM | | | | | PDT | | + + + + + | Body Mass Index | 37.8 | 09/10/2017 10:14 AM | | | | | PDT | | + + + + + Plan of Treatment + + + + + | Health Maintenance | Due Date | Last Done | Comments | + + + + + | Pneumococcal | | | | | vaccination (1 of 2 | 7 | | | | - PCV13) | | | | + + + + + | Influenza (Flu) | | | | | vaccination (Season | 9 | | | | Ended) | | | | + + + + + Results Not on filefrom Last 3 Months Insurance + +--------+ +--------+ + +--------+ | Payer | Benefi | Subscriber | Effect | Phone | Address | Type | | | t Plan | ID | [place] | | | | | | / | | Dates | | | | | | Group | | | | | | + +--------+ +--------+ + +--------+ | [address] [employer] | RAIL | xxxxxxxxxxx | Effect | [phone] | [address] | [address] | | | [address] | | [place] | 0 | [phone] | re | | | MEDICA | | for | | [place], [place] | | | | RE | | all | | [id number] | | | | | | dates | | | | + +--------+ +--------+ + +--------+ | COMMERCIAL | INDIVI | [phone] | 12/15/19 | | | Indemn | | INDIVIDUAL | DUAL | | 16-Pre | | | ity | | | COMMER | | sent | | | | | | CIAL | | | | | | + +--------+ +--------+ + +--------+ | [employer] | UNITED | xxxxxxxxx | 11/14/19 | | | PPO | | | | | 10-Pre | | | | | | HEALTH | | sent | | | | | | CARE | | | | | | + +--------+ +--------+ + +--------+ | [employer] | UNITED | xxxxxxxxx | 11/14/19 | | | PPO | | | | | 10-Pre | | | | | | HEALTH | | sent | | | | | | CARE | | | | | | + +--------+ +--------+ + +--------+ + +--------+ +--------+ + + | Guarantor Name | Accoun | Relation to | Date | Phone | Billing Address | | | t Type | Patient | of | | | | | | | | | | + +--------+ +--------+ + + | Roman Casas | Person | Self | [birth year] | [address] | | | al/Fam | | 2 | [phone] | [place] [address] | | | jitendra | | | 5 (Home) | | | | | | | [phone] | | | | | | | 8 (Work) | | + +--------+ +--------+ + + | Roman Casas | Person | Self | [birth year] | [address] | | | al/Fam | | 1950 | [phone] | [place] [address] | | | jitendra | | | 5 (Home) | | + +--------+ +--------+ + + Advance Directives + + + + + | Code Status | Date | Date | Comments | | | Activated | Inactivated | | + + + + + | Full Code | 05/11/2008 | 05/16/2008 | | | | 8:22 PM | 7:03 PM | | + + + + +
--- OUTSIDE RECORDS SUMMARY | ~2018-09-10 | XMS | Encounter Summary ---
Demographics + + + | Address | [address] | | | [place] [address] | + + + | Home Phone | | + + + | Preferred Language | Unknown | + + + | Marital Status | | + + + | Mormonism Affiliation | NON | + + + | Race | White | + + + | Ethnic Group | Not or | + + + Author + + + | Author | [facility] | + + + | Organization | [facility] | + + + | Address | Unknown | + + + | Phone | Unavailable | + + + Support + + + + + | Name | Relationship | Address | Phone | + + + + + | Ted Casas | ECON | [address] | | | | | [place] | | | | | [address] | | + + + + + | Carmen Renteria | ECON | [address] | | | | | [place] | | | | | [address] | | + + + + + | Vince Loredo | ECON | [place] | | + + + + + Care Team Providers + +------+ + | Care Stars Coordinator Name | Role | Phone | [...] | | | | | nipple | [facility] [place] | Mail Code: | | | | | Procedures | [address] | [facility] | | | | | REQUEST TO | Phone: | for Health | | | | | SURGERY | [phone] | and Healing, | | | | | CLINICAL STUDIES SPECIALIST | Fax: | 5th Floor | | | | | AL | [phone] | [facility] [place] | | | | | NIPPLE/AREOL | | [address] | | | | | A | | Phone: | | | | | RECONSTRUCTI | | [phone] | | | | | ON AL | | | | | | | REVISE | | | | | | | BREAST | | | | | | | RECONSTRUCTI | | | | | | | ON AL EXC | | | | | | | SKIN BENIG | | | | | | | 1.1-2CM | | | | | | | TRUNK,ARM,LE | | | | | | | G AL LAYR | | | | | | [...] Dx) | | | | Surgery at [facility] [address] | [facility] [place] | | | | | [address] Mail | [phone] | | | | | Code: [facility] | [phone] | | | | | for Health and | | | | | | [facility] Floor | | | | | | [place], [place] | | | | | | [address] | | | | | | [phone] | | | +--------+---------+ + + + [...]
--- OUTSIDE RECORDS SUMMARY | ~2018-09-10 | XMS | Encounter Summary ---
Demographics + + + | Address | [address] | | | [place] [address] | + + + | Home Phone [...] + | Ted Patterson | ECON | [address] | | | | | [place] | | | | | [address] | | + + + + + | Carmen Renteria | ECON | [address] | | | | | [place] | | | | | [address] | | + + + + + | Vince Loredo | ECON | [place] | | + + + + + Care Team Providers + +------+ + | Care Reporting Coordinator Name | Role | Phone | + +------+ + | Adrián Gregory MD | PCP | | + +------+ + Encounter Details +--------+ + + + + | Date | Type | Department | Care Team | Description | +--------+ + + + + | 04/01/ | Office | [facility] | Erna Rainey, | Progress Note | | 2006 | Visit-Trans | [address] | MD [address] | | | | [address] | [place] | [place] | | | | | [address] | [address] | | | | | | [phone] | | | | | | | [...] documented as of this encounter Progress Notes Jakob Rainey - 08/21/2007 4:[address] [facility] [address] [place] [address] PERRY PATTERSON DATE OF SERVICE: August 20, 2007 DIAGNOSIS: Stage I (T1b, N0, M0) breast cancer. INTERVAL HISTORY: This is a 4-months' returning follow-up. The patient is currently on Arimidex for adjuvant hormonal therapy for her breast cancer. She has significant arthralgia related to Arimidex. Sometimes it was very painful. She will was not able to go to sleep. On other days, it was tolerable. She also has significant hot flashes, average about 15-16 times a day, with profuse sweating. PHYSICAL EXAMINATION: VITAL SIGNS: Her weight today is 164 pounds. Blood pressure 124/82, pulse 91, temperature 98.5, and saturation 97%. GENERAL APPEARANCE: She appears comfortable, pleasant and not in acute distress. Well nourished, well developed. HEENT: Pupils equal and reactive, sclerae anicteric. NECK: Supple without palpable mass. LUNGS: Clear. CARDIAC: Heart rate is regular. BREASTS: Status post mastectomy on the right side with surgical scarring on the chest wall. No palpable mass. Left breast examination is unremarkable. No axillary palpable lymphadenopathies. LABORATORY DATA: WBC of 6.6, hemoglobin 12.5, and platelet count of 187,000. Comprehensive profile unremarkable. IMPRESSION: 1. Arimidex-induced arthralgia. 2. Hot flashes. PLAN: 1. Start her on Effexor 37.5 mg p.o. t.i.d. p.r.n. for hot flashes. 2. Give her Percocet 5/325 as needed for pain. 3. She will return in 4 months or sooner if necessary for follow-up. XF/MedQ PERRY PATTERSON [id number] SERVICE DATE: 08/20/07 /[id number] cc: Jem Gregory Electronically Signed X MD LEONARDO Brown [place] A [id number] SERVICE DATE: 08/20/07 12 :12 PM PDTFu, Erna Waldron MD - 04/24/2007 3:02 PM [facility] [address] [place] [address] PERRY PATTERSON DATE OF SERVICE: April 24, 2007 DIAGNOSIS: Stage IB breast cancer. INTERVAL HISTORY: The patient had completion mastectomy after initial excision biopsy. The tumor was ER and LA strongly positive (90%), HER2/derek negative by FISH, she had 1 negative sentinel lymph node, tumor is nuclear grade 2. The tumor size measures 1.0 cm in maximum depression. Left mastectomy sample did not reveal any residual tumor. Overall, she has stage IB (T1b, N0, M0) breast cancer. She is still recovering from surgery. PHYSICAL EXAMINATION: VITAL SIGNS: Her weight is 159.2 pounds. Blood pressure 118/81, pulse 79, temperature 97.9, saturation 96%. GENERAL APPEARANCE: She is comfortable, well nourished, well developed. BREASTS: Her right breast is status post mastectomy, surgical dressing is still in place. There appears to be a collection of seroma under her right arm. She is not further examined. LABORATORY DATA: Not obtained today. IMPRESSION: Stage IB breast cancer, strong ER and LA positive, HER2 negative. DISCUSSION: Her 10-year relapse rate is approximately 12% without further treatment. With adjuvant hormonal therapy such as an aromatase inhibitor, her chance of recurrence will be reduced by 40% to 50% relatively. This will reduce her absolute recurrence rate to about 6% to 7%. There is no indication for chemotherapy based on her current staging. The absolute benefit of chemotherapy is probably 1% to 2% at most. After discussion, the patient is agreeable with the above plan. I decided to give her Arimidex 1 mg p.o. daily. Side effects including, but not limited to, serology, osteoporosis, increasing hot flashes, were all discussed. PLAN: 1. Start Arimidex. 2. No indication for chemotherapy. 3. Return in 4 months for followup. PAKO/Juan /[id number] PERRY PATTERSON [id number] SERVICE DATE: 04/24/07 cc: Dr. Doron Gregory Electronically Signed X MD LEONARDO Brown LEE ANN A [id number] SERVICE DATE: 04/24/07 12 :07 PM Sampson, Erna Waldron MD - 04/02/2007 12:36 PM [facility] [address] [place] [address] PERRY PATTERSON DATE OF ADMISSION: 04/01/2007 REFERRING PHYSICIAN: Dr. Doron Parish HISTORY OF PRESENT ILLNESS: The patient is a 56-year-old female, who comes to us today accompanied by her mother and her for a consultation regarding a recently diagnosed breast cancer. Patient reports that a mass was found on routine mammogram done February 21. Ultrasound confirmed this finding, showing an irregular mass, 1.2 cm in size, in the right upper outer quad of the breast in the 10 o'clock position. Patient had a biopsy on March 19. Pathology showed a moderately differentiated infiltrating ductal carcinoma of the breast, measuring 1 cm in its maximal dimensions. The lesion extended up to the inked margins of excision. Immunohistochemistry was ER/LA 90% positive, HER2/derek studies are pending. The patient is scheduled to have a re-excisional surgery this coming Saturday with her physician, Dr. Doron Parish. She is here today to discuss medical oncology interventions for her breast cancer. PAST MEDICAL HISTORY: Hypertension, arthritis. PAST SURGICAL HISTORY: Hysterectomy in 1998, renal angioplasty x2, the most recent in 2000. Biopsy March 2007 for breast cancer. CURRENT MEDICATIONS: 1. Tricor tabs. 2. Crestor. 3. Lozol. 4. Nexium. 5. Trazodone. 6. Meloxicam tabs. 7. Aldactone. 8. K-Christie. 9. Diovan. 10.Estroven. ALLERGIES: PENICILLIN, SULFA, VICODIN. FAMILY HISTORY: Patient's father from pancreatic cancer. Her paternal grandmother from brain cancer. No other cancer history is known. 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 She is , and lives with her in [place]. She has 3 daughters and 3 stepchildren. She denies current tobacco use, stating she quit smoking 2 years ago. Prior to that, she smoked for 35 years. She admits to occasional social drinking. REVIEW OF SYSTEMS: She has no chills or fever. She denies unexplained weight loss. She states the lumpectomy site is matrix drier tender, but does not require a narcotic analgesic for managing discomfort. She has no upper respiratory LEONARDO,PERRY Cardenas [id number] SERVICE DATE: 04/01/07 complaints. She has no gastrointestinal complaints. She has myalgia and arthralgia, which she attributes to arthritis. History was obtained by AMANDA Bartlett and reviewed by myself. PHYSICAL EXAMINATION: VITAL SIGNS: Her weight today is 161.8 pounds, height of 61-3/4 inch blood pressure 112/78, pulse 92, temperature 97.9, saturation 96%. GENERAL APPEARANCE: She is well-nourished, well-developed, comfortable and not in acute distress. HEENT: Pupils equal round reactive, sclerae nonicteric. Oral mucosa is moist. NECK: Neck is supple, no palpable mass, no JVD or thyroid enlargement. LUNGS: Lungs are clear to auscultation bilaterally, no wheeze or rales, no labored breathing. HEART: S1, S2, regular rate and rhythm. No murmur is appreciated. BREASTS: Status post lumpectomy on the right side, surgical incision still taped with adhesives. No palpable mass otherwise, left breast examination is without mass, nipple changes or discharge. No palpable lymphadenopathy in the bilateral axillary area. ABDOMEN: Soft, nontender, liver is palpable about 3 cm below the costal margin along the midclavicular line on the right. Spleen is not palpable. No palpable mass. EXTREMITIES: Without edema or cyanosis or clubbing. SKIN: Without ecchymosis or jaundice. NEURO: Awake, alert, normal speech and cognition, no focal neurological deficit. IMPRESSION: A 56-year-old female with a newly diagnosed breast cancer. Currently, she just had excision biopsy, which revealed moderately differentiated infiltrating ductal carcinoma measuring 1.0 cm in size. The tumor is ER and LA 90% positive, HER2 still pending. The tumor has extended to the inked margin of excision, and re- excision or mastectomy will be discussed between the patient and Dr. Parish this coming Saturday. Of course, sentinel lymph node procedure will also be done at her next surgery. I had a long discussion with the patient and her family regarding the diagnosis, prognosis, and the treatment options. Of course, all the discussion was based on her current information. There is still some other pending factors such as the final tumor size, lymph node status, and HER2 status. Any change in these with dramatically change her ultimate prognosis and also possibly affect her treatment. If she does have 1 cm, lymph node negative, HER2 negative breast cancer, the 10- year relapse rate is approximately 18%. Adjuvant hormonal therapy would offer relative risk reduction of 40% and chemotherapy approximately 25%. In essence, adjuvant hormonal therapy would lead to approximately 8% of absolute risk reduction and chemotherapy, probably 3-4%. I further discussed about potential side effects of chemotherapy, if she did desire such treatment. In addition, we also touched based on the difference of mastectomy and radiation versus a lumpectomy plus radiation versus mastectomy. All their questions were answered satisfactorily. PLAN: PERRY PATTERSON [id number] SERVICE DATE: 04/01/07 1. The patient will go ahead with re-excision or a mastectomy with Dr. Parish, pending further discussion. 2. Wait for her HER2 status, lymph node status and final pathology. 3. She will return approximately 1 week after surgery for further discussion. 4. If she did choose to have chemotherapy, I will probably recommend Taxotere and Cytoxan for 4 cycles every 3 weeks. Thank you very much for this consultation. NV/MedQ /[id number] XF/MedQ /[id number] cc: Dr. Doron Parish Electronically Signed X MD LEONARDO Brown LEE ANN A [id number] SERVICE DATE: 04/01/07 12 :05 PM PDTdocumented in this encounter Plan of Treatment Not on filedocumented as of this encounter Visit Diagnoses Not on filedocumented in this encounter"
--- OUTSIDE RECORDS SUMMARY | ~2018-09-10 | XMS | Encounter Summary ---
Demographics + + + | Address | [address] | | | [place] [address] | + + + | Home Phone | | + + + | Preferred Language | Unknown | + + + | Marital Status | | + + + | Yazidism Affiliation | NON | + + + | Race | White | + + + | Ethnic Group | Not or | + + + Author + + + | Author | [facility] | + + + | Organization | [facility] | + + + | Address | Unknown | + + + | Phone | Unavailable | + + + Support + + + + + | Name | Relationship | Address | Phone | + + + + + | Ted Casas | ECON | [address] | | | | | [place] | | | | | [address] | | + + + + + | Carmen Renteria | ECON | [address] | | | | | [place] | | | | | [address] | | + + + + + | Vince Loredo | ECON | [place] | | + + + + + Care Team Providers + +------+ + | Care Adoption Specialist Name | Role | Phone | [...] Description | +--------+--------+ + + + | 09/05/ | Refill | [facility] | Eloisa Mota SLASHER OPERATOR | Refill Request | | 2017 | | [place] [facility] | [address] | | | | | Oncology [address] | [facility] [place] [address] | | | | | [place] The | [phone] | | | | | [place], [place] | | | | | | [address] | | | | | | [phone] | | | +--------+--------+ + + + [...]
--- OUTSIDE RECORDS SUMMARY | ~2018-09-10 | XMS | Encounter Summary ---
Demographics + + + | Address | [address] | | | [place] [address] | + + + | Home Phone | | + + + | Preferred Language | Unknown | + + + | Marital Status | | + + + | Uatsdin Affiliation | Unknown | + + + | Race | Unknown | + + + | Ethnic Group | Unknown | + + + Author + + + | Author | [facility] | + + + | Organization | [facility] | + + + | Address | Unknown | + + + | Phone | Unavailable | + + + Support + + + + + | Name | Relationship | Address | Phone | + + + + + | Ted Cortes | ECON | [address] | | | | | [place] | | | | | [address] | | + + + + + | Jersey Marroquin | ECON | [place] | | | | | [address] | | + + + + + Care Team Providers + +------+ + | Care Lathe Set Up Operator Name | Role | Phone | [...] | Radiology | Diagnoses | Shell, | [facility] | | | | | Numbness | MD Wally | [address] | | | | | Procedures | [address] | | | | | MRI lumbar | [place] | [place], [place] | | | | | spine | Drive | [address] Phone: | | | | | without | [place], [place] | [phone] | | | | | contrast | [address] | Fax: | | | | | | Phone: | [phone] | | | | | | [phone] | | | | | | | Fax: | | | | | | | [phone] | | +--------+--------+ + + + + [...] | | | extremity | [address], | [place], [place] | | | | | | [place] [address] | [address] Phone: | | | | | | Phone: | [phone] | | | | | | [phone] | Fax: | | | | | | Fax: | [phone] | | | | | | [phone] | | + +--------+ + + + [...] | | [address] | Drive [place], [place] | | | | | [place] | [address] | | | | | [address] | | | | | | [phone] | | | +--------+ + + + [...] note may be different from the original. [facility] [address] , [address] [place], [place] [phone] Test Date: 07/30/2018 Patient: raeann cortes : 1950 Physician: Wally Shell MD Sex: Female Height: Ref Phys: ID#: [id number] Weight: Communications Executive: Patient History / Exam: 68-year-old woman with [...] MRI and follow-up visit Wally Shell MD [facility] Nerve Conduction Studies Anti Sensory Summary Table [...] | | | | | | [place] [facility] | | | | | | [id number] | | | | | | | [...] + + | Performing | Address | City/State/[facility] | Phone Number | | Organization | | | | + + + + + | [facility] | [address] [facility] | [place] [address] | | + + + + + in this encounter Visit Diagnoses + + | Diagnosis | + + | Numbness - Primary | + + | Disturbance of skin sensation | + + | Polyneuropathy | + + | Unspecified hereditary and idiopathic peripheral neuropathy | + +"
--- OUTSIDE RECORDS SUMMARY | ~2018-09-10 | XMS | Encounter Summary ---
Demographics + + + | Address | [address] | | | [place] [address] | + + + | Home Phone | | + + + | Preferred Language | Unknown | + + + | Marital Status | | + + + | Advent Affiliation | Unknown | + + + | Race | Unknown | + + + | Ethnic Group | Unknown | + + + Author + + + | Author | [facility] | + + + | Organization | [facility] | + + + | Address | Unknown | + + + | Phone | Unavailable | + + + Support + + + + + | Name | Relationship | Address | Phone | + + + + + | Ted Casas | ECON | [address] | | | | | [place] | | | | | [address] | | + + + + + | Jersey Marroquin | ECON | [place] | | | | | [address] | | + + + + + Care Team Providers + +------+ + | Care Inspector Floor Sub Assembly Name | Role | Phone | + +------+ + | Dominick Clark | PCP | | + +------+ + Encounter Details +--------+ + + + + | Date | Type | Department | Care Team | Description | +--------+ + + + + | 03/08/ | Documentati | [facility] | Wally Shell, | | | 2019 | on Only | [facility] | [address] | | | | | [address] | [address] [place], [place] | | | | | [place] | [address] | | | | | [address] | | | | | | [phone] | | | +--------+ + + + [...] | | | | | | [place] | | | | | | [address] | | | | | | | | +--------+---------+ + + + as of this encounter Visit Diagnoses Not on filein this encounter"
--- OUTSIDE RECORDS SUMMARY | ~2018-09-10 | XMS | Encounter Summary ---
Demographics + + + | Address | [address] | | | [place] [address] | + + + | Home Phone | | + + + | Preferred Language | Unknown | + + + | Marital Status | | + + + | Bahai Affiliation | NON | + + + [...] + | Ted Casas | ECON | [address] | | | | | [place] | | | | | [address] | | + + + + + | Carmen Renteria | ECON | [address] | | | | | [place] | | | | | [address] | | + + + + + | Vince Loredo | ECON | [place] | | + + + + + Care Team Providers + +------+ + | Care Colorer Machine Name | Role | Phone | + [...] Description | +--------+--------+ + + + | 12/05/ | Refill | [facility] | Iris Champion, | Refill Request | | 2016 | | Center - Medical | MD | | | | | Oncology [address] | | | | | [place] | | | | | | [place] | | | | | | [address] | | | | | | [phone] | | | +--------+--------+ + + + [...]
--- OUTSIDE RECORDS SUMMARY | ~2018-09-10 | XMS | Encounter Summary ---
Demographics + + + | Address | [address] | | | [place] [address] | + + + | Home Phone | | + + + | Preferred Language | Unknown | + + + | Marital Status | | + + + | Druze Affiliation | NON | + + + | Race | White | + + + | Ethnic Group | Not or | + + + Author + + + | Author | [facility] | + + + | Organization | [facility] | + + + | Address | Unknown | + + + | Phone | Unavailable | + + + Support + + + + + | Name | Relationship | Address | Phone | + + + + + | Ted Casas | ECON | [address] | | | | | [place] | | | | | [address] | | + + + + + | Carmen Renteria | ECON | [address] | | | | | [place] | | | | | [address] | | + + + + + | Vince Loredo | ECON | [place] | | + + + + + Care Team Providers + +------+ + | Care Internet Technology Manager Name | Role | Phone | [...] [place] | | | | | | [address] | | | | | | [phone] | | | | | | | [...] 0.1 | 0.00 - 0.70 x10 | [facility] | | | | | 3/UL | [...] | [address] | [place] [address] | | | MEDICAL CENTER | Streets [...] + | [facility] [address] | [place] [address] | | | MEDICAL CENTER | Streets | | | + + + + + documented in this encounter Visit Diagnoses Not on filedocumented in this encounter"
--- OUTSIDE RECORDS SUMMARY | ~2018-09-10 | XMS | Encounter Summary ---
Demographics + + + | Address | [address] | | | [place] [address] | + + + | Home Phone | | + + + | Preferred Language | Unknown | + + + | Marital Status | | + + + | Confucianism Affiliation | NON | + + + | Race | White | + + + | Ethnic Group | Not or | + + + Author + + + | Author | [facility] | + + + | Organization | [facility] | + + + | Address | Unknown | + + + | Phone | Unavailable | + + + Support + + + + + | Name | Relationship | Address | Phone | + + + + + | Ted Patterson | ECON | [address] | | | | | [place] | | | | | [address] | | + + + + + | Carmen Renteria | ECON | [address] | | | | | [place] | | | | | [address] | | + + + + + | Vince Loredo | ECON | [place] | | + + + + + Care Team Providers + +------+ + | Care Toy Designer Name | Role | Phone | + +------+ + | Adrián Gregory MD | PCP | | + +------+ + Encounter Details +--------+ + + + + | Date | Type | Department | Care Team | Description | +--------+ + + + + | 12/18/ | Office | [facility] [address] | Erna Rainey, | Progress Note | | 2011 | Visit-Trans | [address] | MD [address] | | | | cribed | [place] | [place] | | | | | [address] | [address] | | | | | | [phone] | | | | | | | [...] encounter Progress Notes Erna Rainey MD - 12/19/2011 5:18 PM [facility] [address] [place] [address] [address] DATE OF SERVICE: December 19, 2011 DIAGNOSIS: Breast cancer, Stage I (T1b, N0, M0). INTERVAL HISTORY: Patient returned today for follow-up of her breast cancer. She is on Arimidex and will complete 5 years of treatment by April of 2012. She is having quite a bit of hot flashes and also arthralgia due to Arimidex, therefore she is looking forward to completing the treatment. PHYSICAL EXAMINATION: VITAL SIGNS: Her weight today is 165 pounds, with a blood pressure of 142/85, pulse 94, temperature 98.6, saturation 97%. GENERAL APPEARANCE: Comfortable, well nourished, and not in acute distress. HEENT: Sclerae nonicteric, with no facial asymmetry. NECK: Supple, with no palpable mass, no JVD or thyroid enlargement. LUNGS: Clear to auscultation bilaterally, with no wheeze or rales, no labored breathing. HEART: S1, S2, regular rate and rhythm, did not appreciate any murmurs. ABDOMEN: Soft, nontender, no organomegaly or mass. EXTREMITIES: Without edema or cyanosis. BREASTS: Examination revealed surgical scars, well healed, in the right breast, consistent with past reconstruction. There is no palpable mass, nipple discharge, or retraction. There are no axillary palpable lymphadenopathies. LABORATORY DATA: WBC of 4.8, hemoglobin 13.1, platelet count of 176,000. CMP unremarkable. IMPRESSION: No evidence of breast cancer recurrence. PLAN: 1. Continue Arimidex to end of April of 2012. 2. I will see her in 6 months for one more time, if everything continues to be stable, we will switch her to annual follow-up. PAKO/Juan /[id number] Electronically Signed 02/11/13 1708 X MD LEONARDO Brown LEE ANN [id number] : 52 [id number] SERVICE DATE: 12/19/11 12 :36 PM PDTdocumented in this encounter Plan of Treatment Not on filedocumented as of this encounter Visit Diagnoses Not on filedocumented in this encounter"
--- OUTSIDE RECORDS SUMMARY | ~2018-09-10 | XMS | Encounter Summary ---
Demographics + + + | Address | [address] | | | [place] [address] | + + + | Home Phone | | + + + | Preferred Language | Unknown | + + + | Marital Status | | + + + | Mormon Affiliation | NON | + + + [...] + | Ted Casas | ECON | [address] | | | | | [place] | | | | | [address] | | + + + + + | Carmen Renteria | ECON | [address] | | | | | [place] | | | | | [address] | | + + + + + | Vince Loredo | ECON | [place] | | + + + + + Care Team Providers + +------+ + | Care Business Support Administrator Name | Role | Phone | + +------+ + PCP | Unavailable | + +------+ + Reason for Visit + + + | Reason | Comments | + + + | Pre-operative | | | evaluation | | + + + Encounter Details +--------+---------+ + + + | Date | Type | Department | Care Team | Description | +--------+---------+ + + + | 05/07/ | Office | Preoperative | Aruna Dallas | Acquired Absence of | | 2008 | Visit | Medicine Clinic at | J, CHECKER CASHIER [address] [facility] | Breast (Primary Dx); | | | | [facility] 4th Floor [address] | Other Specified | | | | [address] | [place], [place] | Pre-Operative | | | | Code: [address] | [address] | Examination | | | | for Health and | [phone] | | | | | [facility],4th Floor | | | | | | [place], [place] | | | | | | [address] | | | | | | [phone] | | | +--------+---------+ + + + [...] | Blood Pressure | 126/65 | 05/07/2008 1:16 PM | | | | | PST | | + + + + + | Pulse | 94 | 05/07/2008 1:16 PM | | | | | PST | | + + + + + | Temperature | 36.4 C (97.5 F) | 05/07/2008 1:16 PM | | | | | PST | | + + + + + | Respiratory Rate | 12 | 05/07/2008 1:16 PM | | | | | PST | | + + + + + | Oxygen Saturation | 96% | 05/07/2008 1:16 PM | | | | | PST | | + + + + + | Inhaled Oxygen | - | - | | | Concentration | | | | + + + + + | Weight | 74.8 kg (165 lb) | 05/07/2008 1:16 PM | | | | | PST | | + + + + + | Height | 157.5 cm (5' 2") | 05/07/2008 1:16 PM | | | | | PST | | + + + + + | Body Mass Index | 30.18 | 05/07/2008 1:16 PM | | | | | PST | | + + + + + documented in this encounter Progress Notes Aruna Dallas ANP - 05/07/2008 1:59 PM PSTSee Scanned H&P. [facility] [address]dy [address] Mail Code: [place] [address] documented in th is encounter Plan of Treatment + +------+--------+ + + | Name | Type | Priori | Associated Diagnoses | Date/Time | | | | ty | | | + +------+--------+ + + | AUTO DIFFERENTIAL | Lab | Routin | | 05/07/2008 1:34 PM | | | | e | | PST | + +------+--------+ + + documented as of this encounter Procedures + +--------+ + + + | Procedure Name | Priori | Date/Time | Associated Diagnosis | Comments | | | ty | | | | + +--------+ + + + | DIFFERENTIAL | Routin | 05/07/2008 | | Results for this | | | e | 2:08 PM | | procedure are in the | | | | PST | | results section. | + +--------+ + + + | INR | Routin | 05/07/2008 | Acquired Absence | Results for this | | | e | 2:08 PM | of Breast Other | procedure are in the | | | | PST | Specified | results section. | | | | | Pre-Operative | | | | | | Examination | | + +--------+ + + + | CBC, WITH | Routin | 05/07/2008 | Acquired Absence | Results for this | | DIFFERENTIAL | e | 2:08 PM | of Breast Other | procedure are in the | | | | PST | Specified | results section. | | | | | Pre-Operative | | | | | | Examination | | + +--------+ + + + | APTT (ACT. PART. | Routin | 05/07/2008 | Acquired Absence | Results for this | | THROMBO TIME) | e | 2:08 PM | of Breast Other | procedure are in the | | | | PST | Specified | results section. | | | | | Pre-Operative | | | | | | Examination | | + +--------+ + + + | BASIC METABOLIC SET | Routin | 05/07/2008 | Other Specified | Results for this | | (NA, K, CL, TCO2, | e | 1:35 PM | Pre-Operative | procedure are in the | | BUN, CR, GLU, CA) | | PST | Examination | results section. | | | | | Acquired Absence of | | | | | | Breast | | + +--------+ + + + | TYPE AND SCREEN | Routin | 05/07/2008 | Acquired Absence | Results for this | | | e | 1:34 PM | of Breast Other | procedure are in the | | | | PST | Specified | results section. | | | | | Pre-Operative | | | | | | Examination | | + +--------+ + + + | 12 LEAD ECG | Routin | 05/07/2008 | Acquired absence | Results for this | | | e | 1:17 PM | of breast Other | procedure are in the | | | | PST | specified | results section. | | | | | pre-operative | | | | | | examination | | + +--------+ + + + documented in this encounter Results DIFFERENTIAL (05/07/2008 2:08 PM PST) + +--------+ + + + | Component | Value | Ref Range | Performed | Pathologist | | | | | At | Signature | + +--------+ + + + | NEUTROPHIL | 49 (L) | 50 - 70 % | [facility] | | | % | | | DEPARTMENT | | | | | | OF | | | | | | PATHOLOGY | | + +--------+ + + + | LYMPHOCYTE | 40 | 18 - 42 % | [facility] | | | % | | | DEPARTMENT | | | | | | OF | | | | | | PATHOLOGY | | + +--------+ + + + | MONOCYTE % | 9 (H) | 2 - 8 % | [facility] | | | | | | DEPARTMENT | | | | | | OF | | | | | | PATHOLOGY | | + +--------+ + + + | EOS % | 2 | 1 - 3 % | [facility] | | | | | | DEPARTMENT | | | | | | OF | | | | | | PATHOLOGY | | + +--------+ + + + | BASO % | 0 | <3 % | [facility] | | | | | | DEPARTMENT | | | | | | OF | | | | | | PATHOLOGY | | + +--------+ + + + | NEUTROPHIL | 3.5 | 1.8 - 7.7 K/cu | [facility] | | | # | | mm | DEPARTMENT | | | | | | OF | | | | | | PATHOLOGY | | + +--------+ + + + | LYMPHOCYTE | 2.8 | 1.0 - 4.8 K/cu | [facility] | | | # | | mm | DEPARTMENT | | | | | | OF | | | | | | PATHOLOGY | | + +--------+ + + + | MONOCYTE # | 0.6 | <0.9 K/cu mm | [facility] | | | | | | DEPARTMENT | | | | | | OF | | | | | | PATHOLOGY | | + +--------+ + + + | EOS # | 0.1 | <0.6 K/cu mm | [facility] | | | | | | DEPARTMENT | | | | | | OF | | | | | | PATHOLOGY | | + +--------+ + + + | BASO # | 0.0 | <0.3 | [facility] | | | | | | DEPARTMENT | | | | | | OF | | | | | | PATHOLOGY | | + +--------+ + + + + + | Specimen | + + | | + + + + + + + | Performing | Address | City/State/Zipcode | Phone Number | | Organization | | | | + + + + + | [facility] | [address] | [place] [address] | | | PATHOLOGY | [address] | | | + + + + + | [facility] | [address] | [place] [address] | | | PATHOLOGY | [address] | | | + + + + + APTT (ACT. PART. THROMBO TIME) (05/07/2008 2:08 [...] | + + + + + | [facility] DEPARTMENT | [address] | [place] [address] | | | PATHOLOGY | [address] | | | + + + + + | [facility] DEPARTMENT OF | [address] | [place] [address] | | | PATHOLOGY | [address] | | | + + + [...] | + + + + + | [facility] DEPARTMENT OF | [address] | [place] [address] | | | PATHOLOGY | [address] | | | + + + + + | [facility] DEPARTMENT | [address] | [place] [address] | | | PATHOLOGY | [address] | | | + + + [...] | + + + + + | [facility] DEPARTMENT OF | [address] | [place] [address] | | | PATHOLOGY | [address] | | | + + + + + | [facility] OF | [address] | [place] [address] | | | PATHOLOGY | [address] | | | + + + + + BASIC METABOLIC SET (NA, K, CL, TCO2, BUN, CR, GLU, CA) (05/07/2008 1:35 PM PST) + +---------+ + + + | Component | Value | Ref Range | Performed | Pathologist | | | | | At | Signature | + +---------+ + + + | GLUCOSE, | 147 (H) | 60 - 99 mg/dL | [facility] | | | PLASMA | | | DEPARTMENT | | | (LAB) | | | OF | | | | | | PATHOLOGY | | + +---------+ + + + | BUN, PLASMA | 16 | 6 - 20 mg/dL | [facility] | | | (LAB) | | | DEPARTMENT | | | | | | OF | | | | | | PATHOLOGY | | + +---------+ + + + | CREATININE | 0.64 | 0.60 - 1.10 | [facility] | | | PLASMA | | mg/dL | DEPARTMENT | | | (LAB) | | | OF | | | | | | PATHOLOGY | | + +---------+ + + + | SODIUM, | 136 | 134 - 143 | [facility] | | | PLASMA | | mmol/L | DEPARTMENT | | | (LAB) | | | OF | | | | | | PATHOLOGY | | + +---------+ + + + | POTASSIUM, | 3.8 | 3.4 - 5.0 | [facility] | | | PLASMA | | mmol/L | DEPARTMENT | | | (LAB) | | | OF | | | | | | PATHOLOGY | | + +---------+ + + + | CHLORIDE, | 102 | 97 - 108 mmol/L | [facility] | | | PLASMA | | | DEPARTMENT | | | (LAB) | | | OF | | | | | | PATHOLOGY | | + +---------+ + + + | TOTAL CO2, | 26 | 23 - 31 mmol/L | [facility] | | | PLASMA | | | DEPARTMENT | | | (LAB) | | | OF | | | | | | PATHOLOGY | | + +---------+ + + + | CALCIUM, | 9.4 | 8.6 - 10.2 | [facility] | | | PLASMA | | mg/dL | DEPARTMENT | | | (LAB) | | | OF | | | | | | PATHOLOGY | | + +---------+ + + + + + | Specimen | + + | Blood - Blood | + + + + + | Narrative | Performed At | + + + | [id number] Estimated GFR > 60 mL/min/1.73 sq m if non- | [facility] | | [place]ian [id number] Estimated GFR > 60 mL/min/1.73 sq m if | DEPARTMENT OF | | [place] GFR is estimated using the MDRD equation recommended by | PATHOLOGY | | the National Kidney Disease Education Program. Estimated GFR | | | Interpretive Information: <60 mL/min/1.73 sq m Chronic | | | Kidney Disease <15 mL/mon/1.73 sq m Kidney Failure | | | Estimated GFR greater than 60mL/min/1.73 is of limited clinical | | | Value. The MDRD equation is not valid in the following situations: | | | - Patients under 18 years of age - Severe malnutrition or obesity | | | - Vegetarian diet - Rapidly changing kidney function | | + + + + + + + + | Performing | Address | City/State/Zipcode | Phone Number | | Organization | | | | + + + + + | [facility] DEPARTMENT OF | [address] | [place] [address] | | | PATHOLOGY | [address] | | | + + + + + | [facility] DEPARTMENT OF | [address] | [place] [address] | | | PATHOLOGY | [address] [...] | + + + + + | [facility] | [address] | [place] [address] | | | PATHOLOGY | [address] | | | + + + + + | [facility] DEPARTMENT OF | [address] | [place] [address] | | | PATHOLOGY | [address] | | | + + + + + 12 LEAD ECG (05/07/2008 1:17 PM PST) + + + + + [...] + + + + | P-R | 164 | ms | [facility] | | | INTERVAL | | | OF | | | | | | CARDIOLOGY | | + + + + + + | QRS | 88 | ms | [facility] | | [...] + + + | P AXIS | 59 | degrees | [facility] | | | | | | OF | | | | | | CARDIOLOGY | | + + + + + + | R AXIS | 24 | degrees | [facility] | | | | | | OF | | | | | | CARDIOLOGY | | + + + + + + | T AXIS | 67 | degrees | [facility] | | | | | | OF | | | | | | CARDIOLOGY | | + + + + + + | EKG | Normal sinus | | [facility] | | | DIAGNOSIS | rhythmPossible Left | | OF | | | | atrial enlargementSeptal | | CARDIOLOGY | | | | infarct , age | | | | | | undeterminedAbnormal | | | | | | ECG"I have personally | | | | | | interpreted this report, | | | | | | either alone or with a | | | | | | trainee."Confirmed by | | | | | | ELSIE ZHANG ([id number]) on | | | | | | 08-May-2008 10:43:21 | | | | + + + [...] view image for the detailed interpretation from [employer] results. | CARDIOLOGY | | | | + + + + + + + + | Performing | Address | City/State/Zipcode | Phone Number | | Organization | | | | + + + + + | [facility] OF | [address] | [place], [place] | | | CARDIOLOGY | [address] | [address] | | + + + + + | [facility]PT OF | [address] 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
--- OUTSIDE RECORDS SUMMARY | ~2018-09-10 | XMS | Encounter Summary ---
Demographics + + + | Address | [address] | | | [place] [address] | + + + | Home Phone | | + + + | Preferred Language | Unknown | + + + | Marital Status | | + + + | Episcopalian Affiliation | NON | + + + | Race | White | + + + | Ethnic Group | Not or | + + + Author + + + | Author | [facility] | + + + | Organization | [facility] | + + + | Address | Unknown | + + + | Phone | Unavailable | + + + Support + + + + + | Name | Relationship | Address | Phone | + + + + + | Ted Casas | ECON | [address] | | | | | [place] | | | | | [address] | | + + + + + | Carmen Renteria | ECON | [address] | | | | | [place] | | | | | [address] | | + + + + + | Vince Loredo | ECON | [place] | | + + + + + Care Team Providers + +------+ + | Care Nutrition Manager Name | Role | Phone | [...] [place] | | | | | | [address] | | | | | | [phone] | | | | | | | [...] DEPARTMENT OF | | performed using a HoloFly6 Discovery QDR scanner. Indication: The | RADIOLOGY [...] Densitometry was performed using a | | [employer]eno QDR scanner.Indication: The patient is a 62 [...]
--- OUTSIDE RECORDS SUMMARY | ~2018-09-10 | XMS | Encounter Summary ---
Demographics + + + | Address | [address] | | | [place] [address] | + + + | Home Phone [...] + | Ted Casas | ECON | [address] | | | | | [place] | | | | | [address] | | + + + + + | Carmen Renteria | ECON | [address] | | | | | [place] | | | | | [address] | | + + + + + | Vince Loredo | ECON | [place] | | + + + + + Care Team Providers + +------+ + | Care Bench Molder Name | Role | Phone | + [...] Nipple | | | | Surgery at [facility] [address] | [place], [place] | (Primary Dx) | | | | [address] | [address] | | | | | Code: [facility] Center | [phone] | | | | | for Health and | | | | | | Healing, 5th Floor | | | | | | [place], [place] | | | | | | [address] | | | | | | [phone] | | | +--------+---------+ + + + [...]
--- OUTSIDE RECORDS SUMMARY | ~2018-09-10 | XMS | Encounter Summary ---
Demographics + + + | Address | [address] | | | [place] [address] | + + + | Home Phone | | + + + | Preferred Language | Unknown | + + + | Marital Status | | + + + | Amish Affiliation | NON | + + + [...] + | Ted Patterson | ECON | [address] | | | | | [place] | | | | | [address] | | + + + + + | Carmen Renteria | ECON | [address] | | | | | [place] | | | | | [address] | | + + + + + | Vince Loredo | ECON | [place] | | + + + + + Care Team Providers + +------+ + | Care Manager Distribution Name | Role | Phone | + +------+ + | Adrián Gregory MD | PCP | | + +------+ + Encounter Details +--------+ + + + + | Date | Type | Department | Care Team | Description | +--------+ + + + + | 04/01/ | Social | [facility] | Other, Faculty | Soc WK/Care Mgmt | | 2006 | Work-Transc | [facility] | [phone] | | | | ribrebecca | [place] | | | | | | [address] | | | +--------+ + + + [...] documented as of this encounter Progress Notes Carlton, Faculty - 04/02/2007 2:51 PM [facility] SOCIAL WORK ASSESSMENT [address] [place] [address] ROMAN PATTERSON DATE OF SERVICE: April 01, 2007 OVERVIEW: The patient is a 57-year-old white, female. She is diagnosed with breast cancer and met with Dr. Rainey, her medical oncologist, for the first time today. She meets with her surgeon, Dr. Parish in [place] on March,. She will meet with Dr. Rainey again to review her pathology report and decide on treatment options during the first week of April. The patient lives in [place], [place] with her spouse. Because her mother lives in [place] she will not be needing a [facility] as a residence. She was accompanied by her spouse and mother today. EMOTIONAL BEHAVIORAL STATUS: Fair. The patient is experiencing tearfulness and anxiety about her recent cancer diagnosis. She states that she is worried about so many things being "out of my control" since her diagnosis. 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 She would like to be able to work part-time during her treatment if possible. She denies problems with sleep and her appetite. She reports successfully quitting smoking 2 years ago with the help of acupuncture therapy. As such, she is keen to use acupuncture and nutritional counseling at [facility] after she knows the specifics of her treatment plan. CLINICAL IMPRESSION: The patient is coping reasonably well with the new diagnosis of breast cancer. FAMILY CAREGIVER STATUS: Good. The patient has a supportive , mother and daughter. The daughter also lives in [place], [place]. No deficits noted. FINANCIAL STATUS: Good. The patient reports that she has adequate income and good medical insurance coverage. No deficits noted. SUMMARY: This social sciences lecturer provided an overview of the integrative medicine available at [facility]. I provided an education and motivational interviewing relevant to the use of integrative therapies in support of her oncology care. I also provided a tour for the patient and her family to assist in accessing the facility thoroughly. The patient is interested in Reach to Recovery help. I plan to call the patient at her home on April 09, 2007, to facilitate a Reach to Recovery volunteer linkage in keeping with her planned surgery type. The patient and I will meet again after her follow-up appointment with Dr. Rainey to proceed with other help to benefit the patient including accessing acupuncture therapy and access to counseling from a registered radiographer. The patient knows how to contact me directly in the interim. ELLIE/Juan ROMAN PATTERSON [id number] ADMIT DATE: /[id number] cc: Erna Rainey MD Electronically Signed SISSY Suárez [place] A [id number] ADMIT DATE: documented in t his encounter Plan of Treatment Not on filedocumented as of this encounter Visit Diagnoses Not on filedocumented in this encounter
--- OUTSIDE RECORDS SUMMARY | ~2018-09-10 | XMS | Encounter Summary ---
Demographics + + + | Address | [address] | | | [place] [address] | + + + | Home Phone [...] + | Ted Casas | ECON | [address] | | | | | [place] | | | | | [address] | | + + + + + | Carmen Renteria | ECON | [address] | | | | | [place] | | | | | [address] | | + + + + + | Vince Loredo | ECON | [place] | | + + + + + Care Team Providers + +------+ + | Care Equipment Operator Name | Role | Phone | + +------+ + | Dominick Garcia MD | PCP | | + +------+ + Encounter Details +--------+ + + + + | Date | Type | Department | Care Team | Description | +--------+ + + + + | 01/09/ | Service Delivery Consultant | [facility] | Erna Rainey, | | | 2015 | | Center - Medical | MD [address] | | | | | Oncology [address] | [place], [place] | | | | | The | [address] | | | | | [place] | [phone] | | | | | [address] | | | | | | [phone] | | | +--------+ + + + [...]
--- OUTSIDE RECORDS SUMMARY | ~2018-09-10 | XMS | Encounter Summary ---
Demographics + + + | Address | [address] | | | [place] [address] | + + + | Home Phone | | + + + | Preferred Language | Unknown | + + + | Marital Status | | + + + | Zoroastrian Affiliation | Unknown | + + + | Race | Unknown | + + + | Ethnic Group | Unknown | + + + Author + + + | Author | [facility] | + + + | Organization | [facility] | + + + | Address | Unknown | + + + | Phone | Unavailable | + + + Support + + + + + | Name | Relationship | Address | Phone | + + + + + | Ted Casas | ECON | [address] | | | | | [place] | | | | | [address] | | + + + + + | Jersey Marroquin | ECON | [place] | | | | | [address] | | + + + + + Care Team Providers + +------+ + | Care Postdoctoral Research Fellow Name | Role | Phone | + +------+ + | Joselin Jose PA-C | PCP | | + +------+ + Encounter Details +--------+ + + + + | Date | Type | Department | Care Team | Description | +--------+ + + + + | 07/30/ | Procedure | [facility] | | | | 2019 | Pass | [facility] | | | | | | MRI [address] | | | | | | [address] | | | | | | [place] [address] | | | | | | [phone] | | | +--------+ + + + [...] | | | | | | [place], [place] | | | | | | [address] | | | | | | | | +--------+---------+ + + + as of this encounter Visit Diagnoses Not on filein this encounter"
--- OUTSIDE RECORDS SUMMARY | ~2018-09-10 | XMS | Encounter Summary ---
Demographics + + + | Address | [address] | | | [place] [address] | + + + | Home Phone | | + + + | Preferred Language | Unknown | + + + | Marital Status | | + + + | Alevism Affiliation | NON | + + + [...] + | Ted Casas | ECON | [address] | | | | | [place] | | | | | [address] | | + + + + + | Carmen Renteria | ECON | [address] | | | | | [place] | | | | | [address] | | + + + + + | Vince Loredo | ECON | [place] | | + + + + + Care Team Providers + +------+ + | Care Cow Rider Name | Role | Phone | + +------+ + | Dominick Clark | PCP | | + +------+ + Encounter Details +--------+------+ + + + | Date | Type | Department | Care Team | Description | +--------+------+ + + + | 02/20/ | Lab | Laboratory at | | Malignant neoplasm | | 2016 | | [facility] | | of upper-outer | | | | Center [address] | | quadrant of right | | | | Street [place], | | female breast (HCC) | | | | [place] [address] | | | +--------+------+ + + + [...] | CBC W/DIFF, REFLEX | Routin | 02/20/2017 | Malignant neoplasm | Results for this | | | e | 11:50 AM | of upper-outer | procedure are in the | | | | PST | quadrant of right | results section. | | | | | female breast (HCC) | | + +--------+ + + + | CBC AND AUTO DIFF | Routin | 02/20/2017 | Malignant neoplasm | Results for this | | | e | 11:50 AM | of upper-outer | procedure are in the | | | | PST | quadrant of right | results section. | | | | | female breast (HCC) | | + +--------+ + + + | CARCINOEMBRYONIC AG, | Routin | 02/20/2017 | Malignant neoplasm | Results for this | | SERUM | e | 11:50 AM | of upper-outer | procedure are in the | | | | PST | quadrant of right | results section. | | | | | female breast (HCC) | | + +--------+ + + + | COMPLETE METABOLIC | Routin | 02/20/2017 | Malignant neoplasm | Results for this | | SET | e | 11:50 AM | of upper-outer | procedure are in the | | (NA,K,CL,CO2,BUN,CRE | | PST | quadrant of right | results section. | | AT,GLUC,CA,AST,ALT,B | | | female breast (HCC) | | | VINCE TOTAL,ALK | | | | | | PHOS,ALB,PROT TOTAL) | | | | | + +--------+ + + + documented in this encounter Results CBC AND AUTO DIFF (02/20/2017 11:50 AM PST) + + + + + + | Component | Value | Ref Range | Performed | Pathologist | | | | | At | Signature | + + + + + + | WBC COUNT | 4.8 | 3.5 - 10.8 K/cu | [facility] | | | | | mm | A MEDICAL | | | | | | CENTER | | + + + + + + | RED CELL | 4.90 | 4.00 - 5.20 | [facility] | [...] + + + + | HEMATOCRIT | 40.9 | 36.0 - 46.0 % | [facility] | | | | | | A MEDICAL | | | | | | CENTER | | + + + + + + | MCV | 83.6 | 80.0 - 96.0 fL | [facility] | | | | | | A MEDICAL | | | | | | CENTER | | + + + + + + | MCH | 28.5 | 28.0 - 34.7 pg | [facility] | | | | | | A MEDICAL | | | | | | CENTER | | + + + + + + | MCHC | 34.1 | 33.0 - 35.5 | [facility] | | | | | g/dL | A MEDICAL | | | | | | CENTER | | + + + + + + | RDW | 14.5 | 11.5 - 15.0 % | [facility] | | | | | | A MEDICAL | | | | | | CENTER | | + + + + + + | PLATELET | 155 | 150 - 400 K/cu | [facility] | | | COUNT | | mm | A MEDICAL | | | | | | CENTER | | + + + + + + | MPV | 7.4 (L) | 7.5 - 11.2 fL | [facility] | | | | | | A MEDICAL | | | | | | CENTER | | + + + + + + | NEUTROPHIL | 44.2 (L) | 50.0 - 70.0 % | [facility] | | | % | | | A MEDICAL | | | | | | CENTER | | + + + + + + | LYMPHOCYTE | 45.8 (H) | 18.0 - 42.0 % | [facility] | | | % | | | A MEDICAL | | | | | | CENTER | | + + + + + + | MONOCYTE % | 7.5 | 3.5 - 9.0 % | [facility] | | | | | | A MEDICAL | | | | | | CENTER | | + + + + + + | EOS % | 1.8 | 1.0 - 3.0 % | [facility] [...] + + + + | NEUTROPHIL | 2.10 | 1.80 - 7.70 | [facility] | | | # | | K/cu mm | A MEDICAL | | | | | | CENTER | | + + + + + + | LYMPHOCYTE | 2.20 | 1.00 - 4.80 | [facility] | [...] Performed At | + + + | Variant lymphs present | [facility] | | | MEDICAL CENTER | + + + + + + + + | Performing | Address | City/State/Zipcode | Phone Number | | Organization | | | | + + + + + | [facility] | And | [place] [address] | [phone] | | MEDICAL CENTER | Streets | | | + + + + + CARCINOEMBRYONIC AG, SERUM (02/20/2017 11:50 AM PST) + +-------+ + + + | Component | Value | Ref Range | Performed | Pathologist | | | | | At | Signature | + +-------+ + + + | CEA-CARCINO | 8.2 | ng/mL | [facility] | | | [...] + + | [facility] | And | [place] [address] | [phone] | | MEDICAL CENTER | [facility] | | | + + + + [...] | | A MEDICAL | | | [facility] | | | CENTER | | + [...] | FASTING 8 | No | | [facility] | | | HOURS [place] [...] Kidney Disease Education Program. Estimated GFR | [facility] | | Interpretive Information: <60 mL/min/1.73 [...] + + + + | [facility] | And | [place] [address] | [phone] | | [facility] | Streets | | | + + + + + documented in this encounter Visit Diagnoses + + | Diagnosis | + + | Malignant neoplasm of upper-outer quadrant of right female breast (HCC) Malignant | | neoplasm of upper-outer quadrant of female breast | + + documented in this encounter"
--- OUTSIDE RECORDS SUMMARY | ~2018-09-10 | XMS | Encounter Summary ---
Demographics + + + | Address | [address] | | | [place] [address] | + + + | Home Phone | | + + + | Preferred Language | Unknown | + + + | Marital Status | | + + + | Hoahaoism Affiliation | NON | + + + | Race | White | + + + | Ethnic Group | Not or | + + + Author + + + | Author | [facility] | + + + | Organization | [facility] | + + + | Address | Unknown | + + + | Phone | Unavailable | + + + Support + + + + + | Name | Relationship | Address | Phone | + + + + + | Ted Casas | ECON | [address] | | | | | [place] | | | | | [address] | | + + + + + | Carmen Renteria | ECON | [address] | | | | | [place] | | | | | [address] | | + + + + + | Vince Loredo | ECON | [place] | | + + + + + Care Team Providers + +------+ + | Care Oliving Machine Operator Name | Role | Phone [...] | | | | Mail Code: | [place], [place] | | | | | | [address] | [address] | | | | | | for Health | Phone: | | | | | | and Healing, | [phone] | | | | | | 5th Floor | Fax: | | | | | | [place], [place] | [phone] | | | | | | [address] | | | | | | | Phone: | | | | | | | [phone] | | +--------+--------+ + + + + Encounter Details +--------+---------+ + + + | Date | Type | Department | Care Team | Description | +--------+---------+ + + + | 04/27/ | Office | Plastic and | Jeelna Carias, | 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
--- OUTSIDE RECORDS SUMMARY | ~2018-09-10 | XMS | Encounter Summary ---
Demographics + + + | Address | [address] | | | [place] [address] | + + + | Home Phone | | + + + | Preferred Language | Unknown | + + + | Marital Status | | + + + | Mosque Affiliation | NON | + + + [...] + | Ted Patterson | ECON | [address] | | | | | [place] | | | | | [address] | | + + + + + | Carmen Renteria | ECON | [address] | | | | | [place] | | | | | [address] | | + + + + + | Vince Loredo | ECON | [place] | | + + + + + Care Team Providers + +------+ + | Care Bagger Meat Name | Role | Phone | + +------+ + | Adrián Gregory MD | PCP | | + +------+ + Encounter Details +--------+ + + + + | Date | Type | Department | Care Team | Description | +--------+ + + + + | 09/02/ | Office | [facility] | Erna Rainey, | Progress Note | | 2008 | Visit-Trans | [address] | MD [address] | | | | cribed | [place] | [place] | | | | | [address] | [address] | | | | | | [phone] | | | | | | | [...] of this encounter Progress Notes Jakob Rainey [place] - 09/02/2008 9:16 PM [facility] MEDICAL ONCOLOGY [address] [place] [id number] [address] DATE OF SERVICE: September 02, 2008 DIAGNOSIS: History of stage I, (T1B, N0 M0) breast cancer. INTERVAL HISTORY: The patient has a history of stage I breast cancer, is being followed since the initial diagnosis back in March 2007. She recently had abnormal findings of the left breast, which was biopsied and she told me it was negative for malignancy. I do not have the pathology report, only have ultrasound, which indicates possible benign findings. She underwent a TRAM flap breast reconstruction on the right side. She has an area which needs further surgical repair because of necrotic fat. Otherwise, she has no new complaints, her hot flashing has been stable, she is on Neurontin. PHYSICAL EXAMINATION: Her weight today is 163.3 pounds. HEENT: Pupils equal and reactive, sclerae nonicteric. NECK: Supple, no palpable mass, no JVD or thyroid enlargement. LUNGS: Clear to auscultation bilaterally. HEART: Rate is regular. BREAST: Status post reconstruction on the right side, there is a surgically incision from recent biopsy in the inner upper quadrant of the left breast, there is no palpable mass on the left side. The right side medial upper portion with area of firm tissue, she indicated that this was the area of necrotic facet scheduled to be removed. ABDOMEN: Soft, obese, there are surgical scars in the lower abdomen from her TRAM flap surgery. Her right upper quadrant is firm, I am suspecting of a significant hepatomegaly. The spleen is not palpable. LABORATORY DATA: WBC 7.2, hemoglobin 14, hematocrit 41.8, platelet count of 215,000. AST 48, ALT 48, alkaline phosphatase 70, total bilirubin of 0.4. IMPRESSION: 1. History of stage I breast cancer on Arimidex. 2. Possible hepatomegaly with a slight increase in transaminase. PLAN: 1. Will arrange a CT scan of the abdomen and pelvis. 2. If everything is okay, will continue every 4-months followup. XF/MedQ ROMAN PATTERSON [id number] : [id number] SERVICE DATE: 09/02/08 /[id number] cc: Adrián Gregory M.D. Electronically Signed X MD LE[place] A [id number] : 52 [id number] SERVICE DATE: 09/02/08 12 :13 PM PDTdocumented in this encounter Plan of Treatment Not on filedocumented as of this encounter Visit Diagnoses Not on filedocumented in this encounter"
--- OUTSIDE RECORDS SUMMARY | ~2018-09-10 | XMS | Encounter Summary ---
Demographics + + + | Address | [address] | | | [place] [address] | + + + | Home Phone | | + + + | Preferred Language | Unknown | + + + | Marital Status | | + + + | Methodist Affiliation | NON | + + + | Race | White | + + + | Ethnic Group | Not or | + + + Author + + + | Author | [facility] | + + + | Organization | [facility] | + + + | Address | Unknown | + + + | Phone | Unavailable | + + + Support + + + + + | Name | Relationship | Address | Phone | + + + + + | Ted Casas | ECON | [address] | | | | | [place] | | | | | [address] | | + + + + + | Carmen Renteria | ECON | [address] | | | | | [place] | | | | | [address] | | + + + + + | Vince Loredo | ECON | [place] | | + + + + + Care Team Providers + +------+ + | Care Asbestos Shingle Inspector Name | Role | Phone | + +------+ + | Adrián Gregory MD | PCP | | + +------+ + Reason for Visit + + + | Reason | Comments | + + + | Pre-op evaluation | | + + + Encounter Details +--------+---------+ + + + | Date | Type | Department | Care Team | Description | +--------+---------+ + + + | 09/03/ | Office | Preoperative | Antoinette Baptiste | Preop Examination | | 2009 | Visit | Medicine Clinic at | A, DIRECTIONAL SURVEY DRAFTER [address] | (Primary Dx) | | | | [facility] 4th Floor [address] | | | | | [place] Vargas Mail | [place], [place] | | | | | Code: [address] | [address] | | | | | for Health and | [phone] | | | | | [facility],4th Floor | | | | | | [place], [place] | | | | | | [address] | | | | | | [phone] | | | +--------+---------+ + + + [...] + + + | Blood Pressure | 100/61 | 09/03/2008 2:26 PM | | | | | PDT | | + + + + + | Pulse | 83 | 09/03/2008 2:26 PM | | | | | PDT | | + + + + + | Temperature | 36.6 C (97.9 F) | 09/03/2008 2:26 PM | | | | | PDT | | + + + + + | Respiratory Rate | 12 | 09/03/2008 2:26 PM | | | | | PDT | | + + + + + | Oxygen Saturation | 96% | 09/03/2008 2:26 PM | | | | | PDT | | + + + + + | Inhaled Oxygen | - | - | | | Concentration | | | | + + + + + | Weight | 74.8 kg (165 lb) | 09/03/2008 2:26 PM | | | | | PDT | | + + + + + | Height | 158.8 cm (5' 2.5") | 09/03/2008 2:26 PM | | | | | PDT | | + + + + + | Body Mass Index | 29.7 | 09/03/2008 2:26 PM | | | | | PDT | | + + + + + documented in this encounter Patient Instructions Patient Instructions Antoinette Cotto - 09/03/2008 3:05 PM PDTARIMIDEX 1 mg Oral Table t, take 1 tablet (1 mg) by oral route once daily aspirin 325 mg Oral Tablet, Take 1 Tab by mouth once daily. CALCIUM + D 600 (1,500)-200 mg-unit Oral Tablet, 1 tab p.o. twice daily clindamycin 300 mg Oral Capsule capsule, Take 1 Cap by mouth every eight hours. cyclobenzaprine 5 mg Oral Tablet, Take 5 mg by mouth three times daily as needed Do not use longer than 2-3 weeks. Pre-op medication instructions: TAKE with small sip water day of surgery as indicated below, hold all others day of surgery : DIOVAN ORAL, 1 tab p.o. qd FLEXERIL 5 mg Oral Tablet, take 1 tablet (5 mg) by oral route 3 times per day TAKE-Fluoxetine HCl 20 mg Oral Tablet, Take 20 mg by mouth once daily. TAKE-gabapentin 300 mg Oral Capsule, take 1 capsule (300 mg) by oral route 3 times per day TAKE-metoprolol tartrate 12.5 mg Oral Tablet, Take 2 Each by mouth two times daily. MULTI-VITAMIN Oral Tablet, take 1 tablet by oral route once daily with food TAKE-NEXIUM 40 mg Oral Capsule, Delayed Release(E.C.), Take 40 mg by mouth once daily in e morning. TAKE IF Yrkxfs-phnopbuis-nykxsqwqvwajn (PERCOCET) 5-325 mg Oral Tablet, Take 1 Tab by mouth once daily at bedtime as needed Not to exceed 12 tablets per any 24 hour period. potassium chloride SR 20 mEq Oral Tab Sust.Rel. Particle/Crystal, take 1 tablet (20 meq) by oral route once daily with food senna-docusate 8.6-50 mg Oral Tablet, Take 1 Tab by mouth two times daily. While on pain me ds. Hold for loose stools. spironolactone 25 mg Oral Tablet, take 1 tablet (25 mg) by oral route once daily TRICOR 145 mg Oral Tablet, take 1 tablet (145 mg) by oral route once daily TYLENOL PM ORAL, 2 tab p.o. qhs. VITAMIN D ORAL, 1 tab p.o. twice daily Pre-operative instructions DIET Nothing to eat or drink after midnight on the night prior to surgery. Your doctor will inst ruct you on what medications to take the morning of surgery. Please note: Some surgeries may require additional dietary restrictions or a bowel preparation. Your caro gical team will give you additional printed instructions should these be necessary. MEDICATIONS Unless otherwise directed by your provider, do not take any Aspirin, vitamin E or non-stero idal anti-inflammatory (NSAIDs i.e. Advil, Aleve, Ibuprofen) or herbal supplements seven day s prior to your surgery. These drugs may interfere with normal blood clotting and may cause excessive bleeding and bruising during or after the surgery. Please see the list below, kai carrizales has a list of products that contain Aspirin, Ibuprofen, or Vitamin E If you are taking Coumadin (warfarin), Plavix or any other blood thinners please let your s urgical team know as medication changes will be necessary. If you need a pain medication for general purposes, use Tylenol as directed. If you are in doubt about any medications that you are taking, please contact our office. PRE-OP BATHING/SHOWERING - HIBICLENS (Chlorhexidine Gluconate) Bath or shower the evening before and the morning of your surgery Use the bottle of Hibiclense soap for the evening cleansing and the bottle in the mor kalina Wash from your neck to your toes. BE CAREFUL NOT TO WASH YOUR FACE OR HAIR WITH THIS SOLUTI ON After your shower or bath do not apply lotions, powders, or deoderant SMOKING You should not smoke for four weeks prior to the procedure and two weeks after the procedur e. If you are a smoker, please speak with your provider. Smoking can significantly affect the outcome of your procedure. Smoking near the time of pruett rgery causes a more acute narrowing of the blood vessels, which may lead to decreased blood flow to the tissue, poor healing, bad scars, or actual loss of tissue. WHEN TO ARRIVE Check-in times for Hospital Admissions are not available until the day prior to surgery. So meone from your surgeon's office will contact you with your check in time. If you do not hea r from anyone by 3:00 PM please call [phone] for [id number]. PARKING Parking for patients and visitors is available in the [facility] Parking structure located across from the emergency department. Patient parking is available on level 1 and 3. Metere d parking is available on the top level. TRANSPORTATION You will require transportation home on the day of discharge. Pain medications and physical activity restrictions may limit your ability to drive safely. CANCELLING YOUR PROCEDURE Please notify your surgeons's office as soon as possible should you need to cancel or eduardo e your surgery date. We will attempt to reschedule your procedure in a timely manner however due to a limited amount of operating room time a waiting list is not uncommon. ILLNESS Please call your surgeons's office with any signs of illness such as cold, flu, infection, fever, or skin rash/infection anytime prior to your surgery. PRODUCTS CONTAINING ASPIRIN [place], Anacin, Anexsia with Codeine, Andynos, Aspirin, Aspirin suppositories, Ascrip tin, Aspergum, Axotal, B-A-C, Baby Aspirin, Emy, BC Powder, Bexophene, Buffaprin, Bufferin , Buffinol, Cama-Arthritis Strength, Congespirin, [place], Coricidin, Damason, Darvon, Dristan, Jocelyn-Gesic, Digel, Dolprin #3 Tablets, Donatab, Doxaphene, Duragesic, Easprin, Ecotrin, Emag rin Forte, Emiprin, Emprazil, Equagesic, Equazine M, Excedrin, Fiogesic, Fiorgen PH, Fiorice t, Fiorinal, 4-Way Cold Tablet Gemnisyn, Indocin, Liquprin, Lortab ASA, Magnaprin, Marnal, Meprobamate, Midol, Momentum, N orgesic, [place], Orphengesic, Pabalate, P-A-C, Percodan, Presalin, Robaxasil, Roxiprin, Alex eto, Salocol SK-65 Compound, Sine-Aid, Sine-Off,, Door, Supac, Talwin Compound, Trigesic, Tolectin , Traiminicin, Vanquish, ZORprin, Zomax PRODUCTS CONTAINING IBUPROFEN Advil, Aleve, Haltran, Medipren, Midol, Motrin, Naproxyn, Nuprin, Rufen OTHER PRODUCTS WHICH MAY PROMOTE BLEEDING Vitamin E, Gingko Biloba, Marine Fatty Acids, Garfield-3 Fish Oil Supplements documented in this encounter Progress Notes Antoinette Cotto - 09/03/2008 3:24 PM PDTSee Scanned H&P. documented in this e ncounter Plan of Treatment + + +--------+ + + | Name | Type | Priori | Associated Diagnoses | Order Schedule | | | | ty | | | + + +--------+ + + | LA COLLECTION VENOUS | Procedures | Routin | Preop Examination | Ordered: 09/03/2008 | | BLOOD,VENIPUNCTURE | | e | | | + + +--------+ + + documented as of this encounter Procedures + +--------+ + + + | Procedure Name | Priori | Date/Time | Associated Diagnosis | Comments | | | ty | | | | + +--------+ + + + | BASIC METABOLIC SET | Routin | 09/03/2008 | Preop Examination | Results for this | | (NA, K, CL, TCO2, | e | 2:53 PM | | procedure are in the | | BUN, CR, GLU, CA) | | PDT | | results section. | + +--------+ + + + | CBC ONLY | Routin | 09/03/2008 | Preop Examination | Results for this | | | e | 2:53 PM | | procedure are in the | | | | PDT | | results section. | + +--------+ + + + | 12 LEAD ECG | Routin | 09/03/2008 | Preop examination | Results for this | | | e | 2:32 PM | | procedure are in the | | | | PDT | | results section. | + +--------+ + + + documented in this encounter Results BASIC METABOLIC SET (NA, K, CL, TCO2, BUN, CR, GLU, CA) (09/03/2008 2:53 PM PDT) + +---------+ + + + | Component | Value | Ref Range | Performed | Pathologist | | | | | At | Signature | + +---------+ + + + | GLUCOSE, | 161 (H) | 60 - 99 mg/dL | [facility] | | | PLASMA | | | DEPARTMENT | | | (LAB) | | | OF | | | | | | PATHOLOGY | | + +---------+ + + + | BUN, PLASMA | 14 | 6 - 20 mg/dL | [facility] | | | (LAB) | | | DEPARTMENT | | | | | | OF | | | | | | PATHOLOGY | | + +---------+ + + + | CREATININE | 0.65 | 0.60 - 1.10 | [facility] | | | PLASMA | | mg/dL | DEPARTMENT | | | (LAB) | | | OF | | | | | | PATHOLOGY | | + +---------+ + + + | SODIUM, | 139 | 134 - 143 | [facility] | | | PLASMA | | mmol/L | DEPARTMENT | | | (LAB) | | | OF | | | | | | PATHOLOGY | | + +---------+ + + + | POTASSIUM, | 3.9 | 3.4 - 5.0 | [facility] | | | PLASMA | | mmol/L | DEPARTMENT | | | (LAB) | | | OF | | | | | | PATHOLOGY | | + +---------+ + + + | CHLORIDE, | 101 | 97 - 108 mmol/L | [facility] | | | PLASMA | | | DEPARTMENT | | | (LAB) | | | OF | | | | | | PATHOLOGY | | + +---------+ + + + | TOTAL CO2, | 29 | 23 - 31 mmol/L | [facility] | | | PLASMA | | | DEPARTMENT | | | (LAB) | | | OF | | | | | | PATHOLOGY | | + +---------+ + + + | CALCIUM, | 9.6 | 8.6 - 10.2 | [facility] | [...] Performed At | + + + | [id number] Estimated GFR > 60 mL/min/1.73 sq m if non- | [facility] | | Guamanian [id number] Estimated GFR > 60 mL/min/1.73 sq m if | DEPARTMENT OF | | Guamanian GFR is estimated using the MDRD equation [...] + + | Performing | Address | City/[facility] | Phone Number | | Organization | | | | + + + + + | [facility] | [address] [place] [address] | [place] [address] | | | PATHOLOGY | [address] | | | + + + + + | [facility] | [address] [place] [address] | [place] [address] | | | PATHOLOGY | [address] | | | + + + + + CBC ONLY (09/03/2008 2:53 PM PDT) + +-------+ + + + | Component | Value | Ref Range | Performed | Pathologist | | | | | At | Signature | + +-------+ + + + | WHITE CELL | 6.7 | 4.4 - 11.0 K/cu | [facility] | | | COUNT | | mm | DEPARTMENT | | | | | | OF | | | | | | PATHOLOGY | | + +-------+ + + + | RED CELL | 4.81 | 4.00 - 5.20 | [facility] | | | COUNT | | M/cu mm | DEPARTMENT | | | | | | OF | | | | | | PATHOLOGY | | + +-------+ + + + | HEMOGLOBIN | 14.0 | 12.0 - 16.0 | [facility] | | | | | g/dL | DEPARTMENT | | | | | | OF | | | | | | PATHOLOGY | | + +-------+ + + + | HEMATOCRIT | 40.2 | 36.0 - 46.0 % | [facility] | | | | | | DEPARTMENT | | | | | | OF | | | | | | PATHOLOGY | | + +-------+ + + + | MCV | 83.5 | 80.0 - 96.0 fL | [facility] | | | | | | DEPARTMENT | | | | | | OF | | | | | | PATHOLOGY | | + +-------+ + + + | MCHC | 34.9 | 33.4 - 35.5 | [facility] | | | | | g/dL | DEPARTMENT | | | | | | OF | | | | | | PATHOLOGY | | + +-------+ + + + | RDW | 14.2 | 11.5 - 15.0 % | [facility] | | | | | | DEPARTMENT | | | | | | OF | | | | | | PATHOLOGY | | + +-------+ + + + | PLATELET | 211 | 150 - 400 K/cu | [facility] [...] DEPARTMENT OF | [address] | [place] [address] | | | PATHOLOGY | [address] | | | + + + + + | [facility] DEPARTMENT | [address] | [place] [address] | | | PATHOLOGY | [address] | | | + + + + + 12 LEAD ECG (09/03/2008 2:32 PM PDT) + + + + + + | Component | Value | Ref Range | Performed | Pathologist | | | | | At | Signature | + + + + + + | VENTRICULAR | 72 | BPM | [facility] | | | RATE | | | OF | | | | | | CARDIOLOGY | | + + + + + + | ATRIAL RATE | 72 | BPM | [facility] | | | | | | OF | | | | | | CARDIOLOGY | | + + + + + + | P-R | 168 | ms | [facility] | | | INTERVAL | | | OF | | | | | | CARDIOLOGY | | + + + + + + | QRS | 64 | ms | [facility] | | | DURATION | | | OF | | | | | | CARDIOLOGY | | + + + + + + | QT | 396 | ms | [facility] | | | | | | OF | | | | | | CARDIOLOGY | | + + + + + + | QTC | 433 | ms | [facility] | | | | | | OF | | | | | | CARDIOLOGY | | + + + + + + | P AXIS | 44 | degrees | [facility] | | | | | | OF | | | | | | CARDIOLOGY | | + + + + + + | R AXIS | 53 | degrees | [facility] | | | | | | OF | | | | | | CARDIOLOGY | | + + + + + + | T AXIS | 70 | degrees | [facility] | | | | | | OF | | | | | | CARDIOLOGY | | + + + + + + | EKG | Normal sinus | | [facility] | | | DIAGNOSIS | rhythmSeptal infarct , | | OF | | | | age undeterminedAbnormal | | CARDIOLOGY | | | | ECG"I have personally | | | | | | interpreted this report, | | | | | | either alone or with a | | | | | | trainee."Confirmed by | | | | | | JANINE COSTA ([id number]) on | | | | | | 03-Sep-2008 21:42:26 | | | | + + + [...] view image for the detailed interpretation from [employer] results. | CARDIOLOGY | | | | + + + + + + + + | Performing | Address | City/State/Zipcode | Phone Number | | Organization | | | | + + + + + | [facility] OF | [address] | [place], [place] | | | CARDIOLOGY | [address] | [address] | | + + + + + | [facility] | [address] [facility] | [place], [place] | | | CARDIOLOGY | [address] | [address] | | + + + + + documented in this encounter Visit Diagnoses + + | Diagnosis | + + | Preop examination - Primary Preoperative examination, unspecified | + + documented in this encounter
--- OUTSIDE RECORDS SUMMARY | ~2018-09-10 | XMS | Encounter Summary ---
Demographics + + + | Address | [address] | | | [place] [address] | + + + | Home Phone | | + + + | Preferred Language | Unknown | + + + | Marital Status | | + + + | Adventism Affiliation | NON | + + + | Race | White | + + + | Ethnic Group | Not or | + + + Author + + + | Author | [facility] | + + + | Organization | [facility] | + + + | Address | Unknown | + + + | Phone | Unavailable | + + + Support + + + + + | Name | Relationship | Address | Phone | + + + + + | Ted Patterson | ECON | [address] | | | | | [place] | | | | | [address] | | + + + + + | Carmen Renteria | ECON | [address] | | | | | [place] | | | | | [address] | | + + + + + | Vince Loredo | ECON | [place] | | + + + + + Care Team Providers + +------+ + | Care Professor Of Political Science Name | Role | Phone | + [...] | cribed | [place] | [place] | | | | | [address] | [address] | | | | | | [phone] | | | | | | | [...] Erna Rainey MD - 12/19/2011 5:18 PM [facility] [address] [place] [address] [address] [place] DATE OF SERVICE: December [...] will switch her to annual follow-up. PAKO/Juan /[id number] Electronically Signed 02/11/13 1708 X MD LEONARDO Brown LEE ANN [id number] : [id number] SERVICE DATE: 12/19/11 12 :36 PM PDTdocumented in this encounter Plan of Treatment Not on filedocumented as of this encounter Visit Diagnoses Not on filedocumented in this encounter"
--- OUTSIDE RECORDS SUMMARY | ~2018-09-10 | XMS | Encounter Summary ---
Demographics + + + | Address | [address] | | | [place] [address] | + + + | Home Phone | | + + + | Preferred Language | Unknown | + + + | Marital Status | | + + + | Alevism Affiliation | NON | + + + | Race | White | + + + | Ethnic Group | Not or | + + + Author + + + | Author | [facility] | + + + | Organization | [facility] | + + + | Address | Unknown | + + + | Phone | Unavailable | + + + Support + + + + + | Name | Relationship | Address | Phone | + + + + + | Ted Casas | ECON | [address] | | | | | [place] | | | | | [address] | | + + + + + | Carmen Renteria | ECON | [address] | | | | | [place] | | | | | [address] | | + + + + + | Vince Loredo | ECON | [place] | | + + + + + Care Team Providers + +------+ + | Care Bellstand Attendant Name | Role | Phone | [...] female breast (HCC) | | | | [address] | | | | | | [phone] | | | +--------+------+ + + + [...] + + | [facility] | And | [place] [address] | [phone] | | MEDICAL CENTER | Streets | | | + + + + + CARCINOEMBRYONIC AG, SERUM (08/21/2016 2:00 PM PDT) + +-------+ + + + | Component | Value | Ref Range | Performed | Pathologist | | | | | At | Signature | + +-------+ + + + | CEA-CARCINO | 8.1 | ng/mL | [facility] | | | EMBRYONIC | | | A MEDICAL | | | AG, SERUM | | | CENTER | | + +-------+ + + + + + | Specimen | + + | Blood | + + + + + | Narrative | Performed At | + + + | Reference Range: Non-smokers: 0.0-3.0 ng/mL | [facility] | | Smokers: 0.0-5.0 ng/mL | MEDICAL CENTER | + + + + + + + + | Performing | Address | City/State/Zipcode | Phone Number | | Organization | | | | + + + + + | [facility] | And | [place] [address] | [phone] | | MEDICAL CENTER | Streets | [...] (H) | 70 - 105 mg/dL | [facility] | | | PLASMA | | | [...] | | A MEDICAL | | | [place] | | | CENTER | | + [...] Kidney Disease Education Program. Estimated GFR | [facility] | | Interpretive Information: <60 mL/min/1.73 [...] | + + + + + | [facility] | And | [place] [address] | [phone] | | MEDICAL CENTER | Streets | | | + + + + + documented in this encounter Visit Diagnoses + + | Diagnosis | + + | Malignant neoplasm of upper-outer quadrant of right female breast (HCC) Malignant | | neoplasm of upper-outer quadrant of female breast | + + documented in this encounter"
--- OUTSIDE RECORDS SUMMARY | ~2018-09-10 | XMS | Encounter Summary ---
Demographics + + + | Address | [address] | | | [place] [address] | + + + | Home Phone | | + + + | Preferred Language | Unknown | + + + | Marital Status | | + + + | Buddhism Affiliation | NON | + + + | Race | White | + + + | Ethnic Group | Not or | + + + Author + + + | Author | [facility] | + + + | Organization | [facility] | + + + | Address | Unknown | + + + | Phone | Unavailable | + + + Support + + + + + | Name | Relationship | Address | Phone | + + + + + | Ted Casas | ECON | [address] | | | | | [place] | | | | | [address] | | + + + + + | Carmen Renteria | ECON | [address] | | | | | [place] | | | | | [address] | | + + + + + | Vince Loredo | ECON | [place] | | + + + + + Care Team Providers + +------+ + | Care Abap Developer Name | Role | Phone | + +------+ + | Dominick Clark | PCP | | + +------+ + Encounter Details +--------+ + + + + | Date | Type | Department | Care Team | Description | +--------+ + + + + | 07/05/ | Tugboat Engineer | [facility] | Erna Rainey, | | | 2016 | | Center - Medical | MD [address] | | | | | Oncology [address] | [place], [place] | | | | | Street The | [address] | | | | | [place] | [phone] | | | | | [address] | | | | | | [phone] | | | +--------+ + + + [...]
--- OUTSIDE RECORDS SUMMARY | ~2018-09-10 | XMS | Encounter Summary ---
Demographics + + + | Address | [address] | | | [place] [address] | + + + | Home Phone | | + + + | Preferred Language | Unknown | + + + | Marital Status | | + + + | Adventist Affiliation | NON | + + + | Race | White | + + + | Ethnic Group | Not or | + + + Author + + + | Author | [facility] | + + + | Organization | [facility] | + + + | Address | Unknown | + + + | Phone | Unavailable | + + + Support + + + + + | Name | Relationship | Address | Phone | + + + + + | Ted aCsas | ECON | [address] | | | | | [place] | | | | | [address] | | + + + + + | Carmen Renteria | ECON | [address] | | | | | [place] | | | | | [address] | | + + + + + | Vince Loredo | ECON | [place] | | + + + + + Care Team Providers + +------+ + | Care Banking Officer Name | Role | Phone | + +------+ + | Adrián Gregory MD | PCP | | + +------+ + Encounter Details +--------+ + + + + | Date | Type | Department | Care Team | Description | +--------+ + + + + | 06/17/ | Results | [facility] | Erna Rainey, | | | 2012 | Only | Department | MD [address] | | | | | | [place] | | | | | | [address] | | | | | | [phone] | | | | | | | [...] | CBC W/DIFF, REFLEX | Routin | 03/16/2013 | | Results for this | | | e | 11:31 AM | | procedure are in the | | | | PST | | results section. | + +--------+ + + + | COMPLETE METABOLIC | Routin | 03/16/2013 | | Results for this | | SET | e | 11:31 AM | | procedure are in the | | (NA,K,CL,CO2,BUN,CRE | | PST | | results section. | | AT,GLUC,CA,AST,ALT,B | | | | | | VINCE TOTAL,ALK | | | | | | PHOS,ALB,PROT TOTAL) | | | | | + +--------+ + + + | CBC W/DIFF, REFLEX | Routin | 06/17/2012 | | Results for this | | | e | 2:43 PM | | procedure are in the | | | | PST | | results section. | + +--------+ + + + | COMPLETE METABOLIC | Routin | 06/17/2012 | | Results for this | | SET | e | 2:43 PM | | procedure are in the | | (NA,K,CL,CO2,BUN,CRE | | PST | | results section. | | AT,GLUC,CA,AST,ALT,B | | | | | | VINCE TOTAL,ALK | | | | | | PHOS,ALB,PROT TOTAL) | | | | | + +--------+ + + + documented in this encounter Results CBC W/DIFF, REFLEX (03/16/2013 11:31 AM PST) + + + + + + | Component | Value | Ref Range | Performed | Pathologist | | | | | At | Signature | + + + + + + | WHITE BLOOD | 6.3 | 3.2 - 11.0 X10 | [facility] | | | CELL COUNT | | 3/uL | A MEDICAL | | | | | | CENTER | | + + + + + + | HEMOGLOBIN | 12.2 | 12.0 - 16.0 | [facility] | | | | | g/dL | A MEDICAL | | | | | | CENTER | | + + + + + + | RED BLOOD | 4.30 | 3.5 - 5.0 X10 | [facility] | | | CELL COUNT | | 6/uL | A MEDICAL | | | | | | CENTER | | + + + + + + | HEMATOCRIT | 36.8 (L) | 37.0 - 45.0 % | [facility] | | | | | | A MEDICAL | | | | | | CENTER | | + + + + + + | MCV | 85.7 | 82 - 100 fL | [facility] | | | | | | A MEDICAL | | | | | | CENTER | | + + + + + + | MCH | 28.5 | 28.0 - 35.0 pg | [facility] | | | | | | A MEDICAL | | | | | | CENTER | | + + + + + + | MCHC | 33.2 | 32 - 36 g/dL | [facility] | | | | | | A MEDICAL | | | | | | CENTER | | + + + + + + | RDW | 12.6 | 12 - 16 % | [facility] | | | | | | A MEDICAL | | | | | | CENTER | | + + + + + + | PLATELET | 207 | 140 - 350 X10 3 | [facility] | | | COUNT | | | A MEDICAL | | | | | | CENTER | | + + + + + + | MPV | 7.3 | 7.0 - 12.0 fL | [facility] | | | | | | A MEDICAL | | | | | | CENTER | | + + + + + + | NEUTROPHIL | 55.4 | 40 - 80 % | [facility] [...] + + + + | LYMPHOCYTE | 34.7 | 15 - 45 % | [facility] | | | % | | | A MEDICAL | | | | | | CENTER | | + + + + + + | LYMPHOCYTE | 2.2 | 0 - 6 x10 3/UL | [facility] | | | # | | | A MEDICAL | | | | | | CENTER | | + + + + + + | EOS % | 2.8 | 0 - 5.8 % | [facility] [...] + + + | BASO % | 0.5 | 0 - 1.8 % | [facility] | | | | | | A MEDICAL | | | | | | CENTER | | + + + + + + | BASO # | 0.0 | 0 - 0.1 x10 | [facility] | | | | | 3/UL | A MEDICAL | | | | | | CENTER | | + + + + + + | MONOCYTE % | 6.6 | 4.2 - 11.0 % | [facility] | | | | | | A MEDICAL | | | | | | CENTER | | + + + + + + | MONOCYTE # | 0.4 | 0 - 0.6 x10 | [facility] [...] | + + + + + | [facility] | And | [place] [address] | [phone] | | [facility] | Streets | | | + + + + + COMPLETE METABOLIC SET (NA,K,CL,CO2,BUN,CREAT,GLUC,CA,AST,ALT,BILI TOTAL,ALK PHOS,ALB,PROT TOTAL) (03/16/2013 11:31 AM PST) + + + + + [...] + + + + | POTASSIUM, | 4.0 | 3.5 - 5.2 MEQ/L | [facility] [...] + + + + | CHLORIDE, | 106 | 98 - 106 MEQ/L | [facility] | | | PLASMA | | | A MEDICAL | | | (LAB) | | | CENTER | | + + + + + + | ANION GAP | 11.0 | 8 - 16 MEQ/L | [facility] | | | | | | A MEDICAL | | | | | | CENTER | | + + + + + + | GLUCOSE, | 110 (H) | 70 - 105 MG/DL | [facility] | | | PLASMA | | | A MEDICAL | | | (LAB) | | | CENTER | | + + + + + + | BUN, PLASMA | 16 | 8 - 30 MG/DL | [facility] | | | (LAB) | | | A MEDICAL | | | | | | CENTER | | + + + + + + | CREATININE | 0.53 (L) | 0.6 - 1.1 MG/DL | [facility] | | | PLASMA | | | A MEDICAL | | | (LAB) | | | CENTER | | + + + + + + | BUN/CREATIN | 30 (H) | 6 - 20 RATIO | [facility] | | | INE RATIO | | | A MEDICAL | | | | | | CENTER | | + + + + + + | CALCIUM, | 9.9 | 8.5 - 10.8 | [facility] | | | PLASMA | | MG/DL | A MEDICAL | | | (LAB) | | | CENTER | | + + + + + + | AST(SGOT) | 29 | 10 - 41 U/L | [facility] | | | | | | A MEDICAL | | | | | | CENTER | | + + + + + + | ALT (SGPT) | 37 | 7 - 51 U/L | [facility] [...] + + + + | TOTAL | 7.3 | 6.7 - 8.5 G/DL | [facility] | | | PROTEIN, | | | A MEDICAL | | | PLASMA | | | CENTER | | | (LAB) | | | | | + + + + + + | ALBUMIN, | 4.1 | 3.5 - 5.0 G/DL | [facility] | | | PLASMA | | | A MEDICAL | | | (LAB) | | | CENTER | | + + + + + + | BILIRUBIN | 0.5 | 0.2 - 1.6 MG/DL | [facility] | | | TOTAL | | | A MEDICAL | | | | | | CENTER | | + + + + + + | ESTIMATED | >60.0 | >60 | [facility] | | | GFR | | | [...] + + | [facility] | [address] | [place] [address] | [phone] | | MEDICAL CENTER | Streets | | | + + + + + CBC W/SANDY SOMMERS (06/17/2012 2:43 PM PST) + +---------+ + + + | Component | Value | Ref Range | Performed | Pathologist | | | | | At | Signature | + +---------+ + + + | WHITE BLOOD | 9.1 | 4.3 - 11.0 X10 | [facility] [...] + + + | RED BLOOD | 4.64 | 4.2 - 5.4 X10 | [facility] | | | CELL COUNT | | 6/uL | A MEDICAL | | | | | | CENTER | | + +---------+ + + + | HEMATOCRIT | 39.5 | 38.0 - 47.0 % | [facility] [...] +---------+ + + + | MCH | 29.4 | 28.0 - 32.0 pg | [facility] | | | | | | A MEDICAL | | | | | | CENTER | | + +---------+ + + + | MCHC | 34.6 | 32 - 36 g/dL | [facility] [...] +---------+ + + + | PLATELET | 190 | 150 - 450 X10 3 | [facility] | | | COUNT | | | A MEDICAL | | | | | | CENTER | | + +---------+ + + + | MPV | 7.4 (L) | 9.0 - 12.0 fL | [facility] | | | | | | A MEDICAL | | | | | | CENTER | | + +---------+ + + + | NEUTROPHIL | 59.2 | 40 - 80 % | [facility] | | | % | | | A MEDICAL | | | | | | CENTER | | + +---------+ + + + | NEUTROPHIL | 5.4 | 1.9 - 8.0 x10 | [facility] | | | # | | 3/UL | A MEDICAL | | | | | | CENTER | | + +---------+ + + + | LYMPHOCYTE | 32.3 | 20 - 50 % | [facility] | | | % | | | A MEDICAL | | | | | | CENTER | | + +---------+ + + + | LYMPHOCYTE | 2.9 | 0 - 6 x10 3/UL | [facility] | | | # | | | A MEDICAL | | | | | | CENTER | | + +---------+ + + + | EOS % | 3.2 | 0 - 5 % | [facility] | | | | | | A MEDICAL | | | | | | CENTER | | + +---------+ + + + | EOS # | 0.3 | 0 - 0.3 x10 | [facility] [...] + | MONOCYTE # | 0.4 | 0 - 0.6 x10 | [facility] | | | | | 3/UL | A MEDICAL | | | | | | CENTER | | + +---------+ + + + | BANDS % | 1.1 | 0 - 7 % | [facility] [...] + + | [facility] | And | [place] [address] | [phone] | | [facility] | [facility] | | | + + + + + COMPLETE METABOLIC SET (NA,K,CL,CO2,BUN,CREAT,GLUC,CA,AST,ALT,BILI TOTAL,ALK PHOS,ALB,PROT TOTAL) (06/17/2012 2:43 PM PST) + + + + + + | Component | Value | Ref Range | Performed | Pathologist | | | | | At | Signature | + + + + + + | SODIUM, | 138 | 137 - 146 MEQ/L | [facility] | | | PLASMA | | | A MEDICAL | | | (LAB) | | | CENTER | | + + + + + + | POTASSIUM, | 4.2 | 3.5 - 5.2 MEQ/L | [facility] | | | PLASMA | | | A MEDICAL | | | (LAB) | | | CENTER | | + + + + + + | CO2 | 23 | 22 - 28 MEQ/L | [facility] | | | | | | A MEDICAL | | | | | | CENTER | | + + + + + + | CHLORIDE, | 107 (H) | 98 - 106 MEQ/L | [facility] | | | PLASMA | | | A MEDICAL | | | (LAB) | | | CENTER | | + + + + + + | ANION GAP | 12.2 | 8 - 16 MEQ/L | [facility] | | | | | | A MEDICAL | | | | | | CENTER | | + + + + + + | GLUCOSE, | 176 (H) | 70 - 105 MG/DL | [...] + + + + | BUN/CREATIN | 35 (H) | 6 - 20 RATIO | [facility] | | | INE RATIO | | | A MEDICAL | | | | | | CENTER | | + + + + + + | CALCIUM, | 9.6 | 8.5 - 10.8 | [facility] | | | PLASMA | | MG/DL | A MEDICAL | | | (LAB) | | | CENTER | | + + + + + + | AST(SGOT) | 28 | 10 - 41 U/L | [facility] | | | | | | A MEDICAL | | | | | | CENTER | | + + + + + + | ALT (SGPT) | 34 | 7 - 51 U/L | [facility] [...] + + + + | TOTAL | 7.4 | 6.7 - 8.5 G/DL | [facility] | | | PROTEIN, | | | A MEDICAL | | | PLASMA | | | CENTER | | | (LAB) | | | | | + + + + + + | ALBUMIN, | 4.4 | 3.5 - 5.0 G/DL | [facility] | | | PLASMA | | | A MEDICAL | | | (LAB) | | | CENTER | | + + + + + + | BILIRUBIN | 0.4 | 0.2 - 1.6 MG/DL | [facility] | | | TOTAL | | | A MEDICAL | | | | | | CENTER | | + + + + + + | ESTIMATED | 115.0 | >60 | [facility] | | | GFR | | | A MEDICAL | | | | | | CENTER | | + + + + + + | FASTING? | 1HR PC | HR | [facility] | | [...] + + | [facility] | And | [place] [address] | [phone] | | [facility] | [facility] | | | + + + + + documented in this encounter Visit Diagnoses Not on filedocumented in this encounter"
--- OUTSIDE RECORDS SUMMARY | ~2018-09-10 | XMS | Encounter Summary ---
Demographics + + + | Address | [address] | | | [place] [address] | + + + | Home Phone [...] + | Ted Casas | ECON | [address] | | | | | [place] | | | | | [address] | | + + + + + | Carmen Renteria | ECON | [address] | | | | | [place] | | | | | [address] | | + + + + + | Vince Loredo | ECON | [place] | | + + + + + Care Team Providers + +------+ + | Care Nipping Machine Operator Name | Role | Phone [...] [place] | | | | | | [address] | | | | | | [phone] | | | | | | | [...] | + + + + + | [facility] | And | [place] [address] | [phone] | | [facility] | Streets | | | + + [...] | ESTIMATED | >60.0 | >60 | [facility] | | | GFR | | | [...] | [facility] | [address] | [place] [address] | [phone] | | MEDICAL CENTER | Streets | [...] + + | [facility] | And | [place] [address] | [phone] | | [facility] | [facility] | | | + + + [...] | [facility] | And | [place] [address] | [phone] | | [facility] | [facility] | | | + + + + + documented in this encounter Visit Diagnoses Not on filedocumented in this encounter"
--- OUTSIDE RECORDS SUMMARY | ~2018-09-10 | XMS | Encounter Summary ---
Demographics + + + | Address | [address] | | | [place] [address] | + + + | Home Phone | | + + + | Preferred Language | Unknown | + + + | Marital Status | | + + + | Zoroastrian Affiliation | NON | + + + | Race | White | + + + | Ethnic Group | Not or | + + + Author + + + | Author | [facility] | + + + | Organization | [facility] | + + + | Address | Unknown | + + + | Phone | Unavailable | + + + Support + + + + + | Name | Relationship | Address | Phone | + + + + + | Ted Casas | ECON | [address] | | | | | [place] | | | | | [address] | | + + + + + | Carmen Renteria | ECON | [address] | | | | | [place] | | | | | [address] | | + + + + + | Vince Loredo | ECON | [place] | | + + + + + Care Team Providers + +------+ + | Care Cane Packer Name | Role | Phone | + +------+ + | Adrián Gregory MD | PCP | | + +------+ + Encounter Details +--------+ + + + + | Date | Type | Department | Care Team | Description | +--------+ + + + + | 06/17/ | Office | [facility] | Erna Rainey, | Progress Note | | 2011 | Visit-Trans | [address] | MD [address] | | | | [address]ribed | [place] | [place] | | | | | [address] | [address] | | | | | | [phone] | | | | | | | [...] encounter Progress Notes Erna Rainey MD - 06/18/2011 11:05 AM [facility] [address] [place], [place] [address]ROMAN FISHER ANN DATE OF SERVICE: June 18, 2011 DIAGNOSIS: Breast cancer stage I (T1b, N0, M0). INTERVAL HISTORY: Patient returned today for 6-month follow-up. She is taking Arimidex for adjuvant chemotherapy started in April 2007 and is due to stop the end of April 2012. She still has some hot flashes and arthralgia, she is taking Percocet as-needed. Overall, she feels well, she does not have any new symptoms. She denied any new pain, no focal weakness. PHYSICAL EXAMINATION: VITAL SIGNS: She weighs 166.4 pounds, blood pressure 135/78, pulse 90, temperature 98.3, saturation 95%. GENERAL APPEARANCE: Comfortable and well-nourished and not in acute distress. HEENT: Sclerae nonicteric with no facial asymmetry. NECK: Supple, no mass or JVD. LUNGS: Clear. HEART: Rate is regular. ABDOMEN: Soft and nontender. EXTREMITIES: Without edema or swelling. BREASTS: Examination revealed surgical scars well-healed in the right breast area, consistent with past reconstruction. There is no palpable mass, nipple discharge or retraction. No axillary palpable lymphadenopathies. LABORATORY DATA: WBC of 6.3, hemoglobin 13.1, hematocrit of 38.3 and platelet count of 190,000. CMP is unremarkable. IMPRESSION: No evidence of breast cancer recurrence. PLAN: Continue with every 6-month follow-up and we will stop her Arimidex by the end of April 2012. PAKO/MedQ /[id number] cc: MD Adrián Ochoa M.D. Electronically Signed 06/03/12 1026 X MD LEONARDO Brown [place] ANN [id number] : 52 [id number] SERVICE DATE: 06/18/11 12 :19 PM PDTdocumented in this encounter Plan of Treatment Not on filedocumented as of this encounter Visit Diagnoses Not on filedocumented in this encounter"
--- OUTSIDE RECORDS SUMMARY | ~2018-09-10 | XMS | Encounter Summary ---
Demographics + + + | Address | [address] | | | [place] [address] | + + + | Home Phone | | + + + | Preferred Language | Unknown | + + + | Marital Status | | + + + | Confucianism Affiliation | NON | + + + | Race | White | + + + | Ethnic Group | Not or | + + + Author + + + | Author | [facility] | + + + | Organization | [facility] | + + + | Address | Unknown | + + + | Phone | Unavailable | + + + Support + + + + + | Name | Relationship | Address | Phone | + + + + + | Ted Patterson | ECON | [address] | | | | | [place] | | | | | [address] | | + + + + + | Carmen Renteria | ECON | [address] | | | | | [place] | | | | | [address] | | + + + + + | Vince Loredo | ECON | [place] | | + + + + + Care Team Providers + +------+ + | Care Tomb Maker Helper Name | Role | Phone | [...] [place] | | | | | [address] | [address] | | | | | | [phone] | | | | | | | [...] Notes ReddJakob Leandro - 05/07/2008 6:21 AM [facility] [address] [place] [address] ROM[address] DATE OF SERVICE: May 06, [...] is scheduled to undergo reconstructive surgery at [facility] in the near future. MEDICATIONS: 1. Arimidex [...] next follow-up, we will obtain ROMAN PATTERSON [id number] : 52 [id number] SERVICE DATE: 05/06/08 laboratory studies before visit. XF/MedQ /[id number] Electronically Signed X MD LEONARDO Brown LEE ANN A [id number] : 52 [id number] SERVICE DATE: 05/06/08 12 :07 PM PDTdocumented in this encounter Plan of Treatment Not on filedocumented as of this encounter Visit Diagnoses Not on filedocumented in this encounter"
--- OUTSIDE RECORDS SUMMARY | ~2018-09-10 | XMS | Encounter Summary ---
Demographics + + + | Address | [address] | | | [place] [address] | + + + | Home Phone [...] + | Ted Casas | ECON | [address] | | | | | [place] | | | | | [address] | | + + + + + | Carmen Renteria | ECON | [address] | | | | | [place] | | | | | [address] | | + + + + + | Vince Loredo | ECON | [place] | | + + + + + Care Team Providers + +------+ + | Care Bank Teller Machine Mechanic Name | Role | Phone | + [...] [place] | | | | | [address] | [address] | | | | | | [phone] | | | | | | | [...] Erna Rainey MD - 01/09/2011 12:40 PM [facility] [address] [place] [id number] [place], [place] [address]ROM[place] DATE OF SERVICE: January 09, 2011 DIAGNOSIS: [...] in 6 months for next followup. PAKO/Juan /[id number] Electronically Signed 02/08/12 0916 X MD LEONARDO Brown LEE ANN [id number] : 52 [id number] SERVICE DATE: 01/09/11 3 :56 PM PDTdocumented in this encounter Plan of Treatment Not on filedocumented as of this encounter Visit Diagnoses Not on filedocumented in this encounter"
--- OUTSIDE RECORDS SUMMARY | ~2018-09-10 | XMS | Encounter Summary ---
Demographics + + + | Address | [address] | | | [place] [address] | + + + | Home Phone [...] + | Ted Casas | ECON | [address] | | | | | [place] | | | | | [address] | | + + + + + | Carmen Renteria | ECON | [address] | | | | | [place] | | | | | [address] | | + + + + + | Vince Loredo | ECON | [place] | | + + + + + Care Team Providers + +------+ + | Care Legal Counsel Name | Role | Phone | + +------+ + | Dominick Garcia MD | PCP | | + +------+ + Encounter Details +--------+ + + + + | Date | Type | Department | Care Team | Description | +--------+ + + + + | 08/23/ | Office | [facility] | Erna Rainey, | Progress Note | | 2016 | Visit-ECX | Center - Medical | MD [address] | | | | | Oncology [address] | [place], [place] | | | | | Street The | [address] | | | | | [place] | [phone] | | | | | [address] | | | | | | [phone] | | | +--------+ + + + [...] encounter Progress Notes Erna Rainey MD - 08/24/2015 6:59 PM PDTDATE OF SERVICE: August 24, 2015 DIAGNOSIS: Breast cancer stage I (T1b N0 M0). CURRENT TREATMENT: Anastrozole 1 mg p.o. daily. INTERVAL HISTORY: Roman Flores returned today for a 6-month followup. She was diagnosed in Apr. She elected to continue anastrozole beyond 5 years. She is overall doing well. She has arthralgia due to anastrozole, for which she is occasionally taking Percocet. She also carries a diagnosis of osteopenia. Her bone density has been followed. She is on calcium and vitamin D. PHYSICAL EXAMINATION: VITAL SIGNS: Her weight today is 190.8 pounds, blood pressure 143/81, pulse 93, temperatur e 97.1, saturation 96%. GENERAL APPEARANCE: She appears to be well [...] She has lymphedema in her lower extremities. LABORATORY DATA: WBC 6, hemoglobin 13.5, platelet count 154,000. CMP unremarkable. IMPRESSION: 1. No evidence of breast cancer recurrence. 2. Arthralgia due to anastrozole. 3. Osteopenia, stable in the past. PLAN: 1. Refill her anastrozole. 2. Give prescription of Percocet. 3. Return in 6 months for next followup. 4. Obtain bone density study before next visit. 5. She will have a mammogram before returning visit. Addendum, a CEA was mistakenly drawn but was elevated (>6), I called patient, she has no re cent colonoscopy and has some chronic bowl movement irregularities. I referred her to ARNA[facility] talley in [facility] for workup. Erna Rainey M.D. MARIA ANTONIA/JONATHANL /[id number] signed by Erna Rainey MD at 09/08/2015 1:51 PM PDTFu, Erna Waldron MD - 08/24/2015 4:05 PM PDTSee note documented in this encounter Plan of Treatment Not on filedocumented as of this encounter Visit Diagnoses Not on filedocumented in this encounter"
--- OUTSIDE RECORDS SUMMARY | ~2018-09-10 | XMS | Encounter Summary ---
Demographics + + + | Address | [address] | | | [place] [address] | + + + | Home Phone | | + + + | Preferred Language | Unknown | + + + | Marital Status | | + + + | Lutheran Affiliation | NON | + + + | Race | White | + + + | Ethnic Group | Not or | + + + Author + + + | Author | [facility] | + + + | Organization | [facility] | + + + | Address | Unknown | + + + | Phone | Unavailable | + + + Support + + + + + | Name | Relationship | Address | Phone | + + + + + | Ted Casas | ECON | [address] | | | | | [place] | | | | | [address] | | + + + + + | Carmen Renteria | ECON | [address] | | | | | [place] | | | | | [address] | | + + + + + | Vince Loredo | ECON | [place] | | + + + + + Care Team Providers + +------+ + | Care Sampler Ovens Name | Role | Phone | + [...] E | | | | | | [place] | | | | | | [place] | | | | | | [address] | | | | | | [phone] | | | +--------+--------+ + + + [...]
--- OUTSIDE RECORDS SUMMARY | ~2018-09-10 | XMS | Encounter Summary ---
Demographics + + + | Address | [address] | | | [place] [address] | + + + | Home Phone | | + + + | Preferred Language | Unknown | + + + | Marital Status | | + + + | Buddhist Affiliation | NON | + + + | Race | White | + + + | Ethnic Group | Not or | + + + Author + + + | Author | [facility] | + + + | Organization | [facility] | + + + | Address | Unknown | + + + | Phone | Unavailable | + + + Support + + + + + | Name | Relationship | Address | Phone | + + + + + | Ted Casas | ECON | [address] | | | | | [place] | | | | | [address] | | + + + + + | Carmen Renteria | ECON | [address] | | | | | [place] | | | | | [address] | | + + + + + | Vince Loredo | ECON | [place] | | + + + + + Care Team Providers + +------+ + | Care Fork Lift Truck Operator Name | Role | Phone | + +------+ + | Adrián Gregory MD | PCP | | + +------+ + Reason for Visit + + + | Reason | Comments | + + + | Postoperative visit | | + + + Encounter Details +--------+---------+ + + + | Date | Type | Department | Care Team | Description | +--------+---------+ + + + | 06/02/ | Office | Plastic and | Jelena Carias, | Postop Check; | | 2008 | Visit | Reconstructive | [address] | Acquired Absence of | | | | Surgery at [facility] [address] | [place], [place] | Breast | | | | [address] | [address] | | | | | Code: [facility] | [phone] | | | | | for Health and | | | | | | [facility], 5th Floor | | | | | | [place], [place] | | | | | | [address] | | | | | | [phone] | | | +--------+---------+ + + + [...] encounter Progress Notes Jelena Carias MD - 06/02/2008 1:21 PM PSTSubjective: Roman Casas presents 3 weeks status post pedicled TRAM flap for delayed right breast rec on. Current concerns include: red weepy donor site Pain controlled by: percocet 1 pill Q 6 hours Objective: Right breast TRAM flap healing well with no signs of infection. There is palpable indurati on of the flap in the upper inner quadrant - Donor site with small rim of eschar of the central area ~7 X 0.5 cm. The umbilicus also mackey s some eschar. There is erythema surrounding those areas of inflammation Assessment: Likely fat necrosis of the upper portion of the flap. Small areas of eschar which should h eal on their own Plan: Continue antibiotic ointment to the open areas. Limited activities X 3 more weeks. She wi ll f/u with local surgeon prn and will follow up in 6 weeks with me for recheck and arline pitts for revision right TRAM flap and NAC recon, sooner prn. documented in this en counter Plan of Treatment Not on filedocumented as of this encounter Procedures + +--------+ + + + | Procedure Name | Priori | Date/Time | Associated Diagnosis | Comments | | | ty | | | | + +--------+ + + + | STRESS EXERCISE | | 06/02/2008 | | Results for this | | ECHOCARDIOGRAM ONLY | | 1:28 PM | | procedure are in the | | | | PST | | results section. | + +--------+ + + + documented in this encounter Results STRESS EXERCISE ECHOCARDIOGRAM, ADULT (06/02/2008 1:28 PM PST) + + + | Narrative | Performed At | + + + | | | + + + + + | Procedure Note | + + | Wagner Vincent - 06/02/2008 1:28 PM PST | + + documented in this encounter Visit Diagnoses + + | Diagnosis | + + | Postop check Follow-up examination, following unspecified surgery | + + | Acquired absence of breast Acquired absence of breast and nipple | + + documented in this encounter"
--- OUTSIDE RECORDS SUMMARY | ~2018-09-10 | XMS | Encounter Summary ---
Demographics + + + | Address | [address] | | | [place] [address] | + + + | Home Phone [...] + | Ted Casas | ECON | [address] | | | | | [place] | | | | | [address] | | + + + + + | Carmen Renteria | ECON | [address] | | | | | [place] | | | | | [address] | | + + + + + | Vince Loredo | ECON | [place] | | + + + + + Care Team Providers + +------+ + | Care Tare Man Name | Role | Phone | + +------+ + | Adrián Gregory MD | PCP | | + +------+ + Encounter Details +--------+ + + + + | Date | Type | Department | Care Team | Description | +--------+ + + + + | 09/03/ | Hospital | Cardiac | Sjh, Car Ecg Tech | | | 2009 | Encounter | Non-Invasive Testing | [address] | | | | | at [facility] | [facility] | | | | | [address] | [place] [address] | | | | | [facility] | | | | | | Mailcode: [id number] [facility] | | | | | | [facility] | | | | | | [facility], | | | | | | [place] [address] | | | | | | [phone] | | | +--------+ + + + [...]
--- OUTSIDE RECORDS SUMMARY | ~2018-09-10 | XMS | Encounter Summary ---
Demographics + + + | Address | [address] | | | [place] [address] | + + + | Home Phone [...] + | Ted Casas | ECON | [address] | | | | | [place] | | | | | [address] | | + + + + + | Carmen Renteria | ECON | [address] | | | | | [place] | | | | | [address] | | + + + + + [...] E | | | | | | [place] | | | | | | [place] | | | | | | [address] | | | | | | [phone] | | | +--------+--------+ + + + [...]
--- OUTSIDE RECORDS SUMMARY | ~2018-09-10 | XMS | Encounter Summary ---
Demographics + + + | Address | [address] | | | [place] [address] | + + + | Home Phone | | + + + | Preferred Language | Unknown | + + + | Marital Status | | + + + | Adventism Affiliation | NON | + + + | Race | White | + + + | Ethnic Group | Not or | + + + Author + + + | Author | [facility] | + + + | Organization | [facility] | + + + | Address | Unknown | + + + | Phone | Unavailable | + + + Support + + + + + | Name | Relationship | Address | Phone | + + + + + | Ted Patterson | ECON | [address] | | | | | [place] | | | | | [address] | | + + + + + | Carmen Renteria | ECON | [address] | | | | | [place] | | | | | [address] | | + + + + + | Vince Loredo | ECON | [place] | | + + + + + Care Team Providers + +------+ + | Care Journal Box Inspector Name | Role | Phone | [...] | | | | right female | [facility] | | | | | breast, | [place], [place] | [place], | | | | | unspecified | [address] | [place] [address] | | | | | site of | Phone: | | | | | | breast | [phone] | | | | | | Procedures | Fax: | | | | | | PET CT SKULL | [phone] | | | | | | BASE [...] Description | +--------+---------+ + + + | 05/16/ | Office | [facility] | Marisol Alberto, | Malignant neoplasm | | 2017 | Visit | Center - Medical | MD [address] | of female breast, | | | | Oncology [address] | [place], [place] | unspecified | | | | The | [address] | laterality, | | | | [place], [place] | [phone] | unspecified site of | | | | [address] | | breast (HCC) | | | | [phone] | | (Primary Dx); | | | | | | Malignant neoplasm | | | | | | of right female | | | | | | breast, unspecified | | | | | | site of breast (HCC) | +--------+---------+ + + + Social History [...] + + + | Blood Pressure | 143/84 | 05/16/2016 2:02 PM | | | | | PST | | + + + + + | Pulse | 111 | 05/16/2016 2:02 PM | | | | | PST | | + + + + + | Temperature | 36.4 C (97.6 F) | 05/16/2016 2:02 PM | | | | | PST | | + + + + + | Respiratory Rate | - | - | | + + + + + | Oxygen Saturation | 96% | 05/16/2016 2:02 PM | | | | | PST | | + + + + + | Inhaled Oxygen | - | - | | | Concentration | | | | + + + + + | Weight | 86.2 kg (190 lb) | 05/16/2016 2:02 PM | | | | | PST | | + + + + + | Height | 157.5 cm (5' 2.01") | 05/16/2016 2:02 PM | | | | | PST | | + + + + + | Body Mass Index | 34.74 | 05/16/2016 2:02 PM | | | | | PST | | + + + + + documented in this encounter Progress Notes Marisol Alberto MD - 05/16/2016 2:00 PM PSTFormatting of this note might be different fro m the original. DATE OF SERVICE: May 16, 2016 DIAGNOSIS: Breast cancer stage I (T1b N0 M0). CURRENT TREATMENT: Anastrozole 1 mg p.o. daily. INTERVAL HISTORY: Perry Flores returned today for a 6-month followup. [...] have a increased CEA, I incidental finding. She h ad a colonoscopy was but was a incomplete. She had a virtual colonoscopy by CT December, which revealed no evidence of malignancy. Her last mammogram on February 06, 2016 is negative. Past Medical History Diagnosis Date Breast cancer (HCC) Dyslipidemia GERD (gastroesophageal reflux disease) Hypertension Peripheral vascular disease (HCC) ROS: No new pain, some hot flashes, no weight changes, reported good appetite. PHYSICAL EXAMINATION: Last Vitals: BP 143/84 | Pulse 111 | Temp (Src) 36.4 C (97.6 F) (Tympanic) | Ht 1.575 m (5' 2.01") | Wt 86.2 kg (190 lb) | SpO2 96% | BMI 34.74 kg/(m^2) GENERAL APPEARANCE: She appears to be [...] lymphedema in her lower extremities. Lab on 08/24/2015 Component Date Value Ref Range Status GLUCOSE, PLASMA (LAB) 08/24/2015 238* 70 - 105 mg/dL Final BUN, PLASMA (LAB) 08/24/2015 12 6 - 26 mg/dL Final CREATININE, PLASMA 08/24/2015 0.6 0.6 - 1.1 mg/dL Final SODIUM, PLASMA (LAB) 08/24/2015 139 137 - 146 mmol/L Final POTASSIUM, PLASMA (LAB) 08/24/2015 3.4 3.4 - 5.3 mmol/L Final CHLORIDE, PLASMA (LAB) 08/24/2015 98 96 - 106 mmol/L Final TOTAL CO2, PLASMA (LAB) 08/24/2015 26 18 - 30 mmol/L Final CALCIUM, PLASMA (LAB) 08/24/2015 9.5 8.5 - 10.8 mg/dL Final BILIRUBIN TOTAL 08/24/2015 0.5 0.2 - 1.2 mg/dL Final TOTAL PROTEIN, PLASMA (LAB) 08/24/2015 7.0 5.8 - 8.5 g/dL Final ALBUMIN, PLASMA (LAB) 08/24/2015 4.2 3.5 - 5.0 g/dL Final ALK PHOS 08/24/2015 66 32 - 180 U/L Final AST(SGOT) 08/24/2015 36 10 - 41 U/L Final ALT (SGPT) 08/24/2015 25 7 - 51 U/L Final EGFR - CZECH 08/24/2015 >60 >60 mL/min Final EGFR NON -CZECH 08/24/2015 >60 >60 mL/min Final ANION GAP 08/24/2015 15 12 - 20 mmol/L Final BUN/CREATININE RATIO 08/24/2015 20 6 - 20 Final FASTING 8 HOURS OR MORE? 08/24/2015 No Final CEA-CARCINOEMBRYONIC AG, SERUM 08/24/2015 6.2 ng/mL Final CA 27-29 08/24/2015 9 <38 U/mL Final This test was performed using the Siemens Chemiluminescent method. Values obtained from different assay methods cannot be used interchangeably. CA 27.29 levels, regardless of value, should not be interpreted as absolute evidence of the presence or absence of disease. WBC COUNT 08/24/2015 6.0 4.4 - 11.0 K/cu mm Final RED CELL COUNT 08/24/2015 4.90 4.00 - 5.20 M/cu mm Final HEMOGLOBIN 08/24/2015 13.5 12.0 - 16.0 g/dL Final HEMATOCRIT 08/24/2015 41.6 36.0 - 46.0 % Final MCV 08/24/2015 84.8 80.0 - 96.0 fL Final MCH 08/24/2015 27.6* 28.0 - 34.7 pg Final MCHC 08/24/2015 32.6* 33.0 - 35.5 g/dL Final RDW 08/24/2015 13.8 11.5 - 15.0 % Final PLATELET COUNT 08/24/2015 154 150 - 400 K/cu mm Final MPV 08/24/2015 7.7* 9.7 - 12.3 fL Final NEUTROPHIL % 08/24/2015 51.7 50.0 - 70.0 % Final LYMPHOCYTE % 08/24/2015 42.5* 18.0 - 42.0 % Final MONOCYTE % 08/24/2015 2.9* 3.5 - 9.0 % Final EOS % 08/24/2015 2.3 1.0 - 3.0 % Final BASO % 08/24/2015 0.6 0.0 - 2.0 % Final NEUTROPHIL # 08/24/2015 3.20 1.80 - 7.70 K/cu mm Final LYMPHOCYTE # 08/24/2015 2.50 1.00 - 4.80 K/cu mm Final MONOCYTE # 08/24/2015 0.20 0.10 - 0.90 K/cu mm Final EOS # 08/24/2015 0.10 0.00 - 0.50 K/cu mm Final BASO # 08/24/2015 0.00 0.00 - 0.10 K/cu mm Final IMPRESSION: 1. No evidence of breast cancer recurrence. 2. Arthralgia due to anastrozole. 3. Osteopenia, stable in the past. Last DEXA scan November 01, 2015. 4. Mild increase in CEA, negative virtual colonoscopy. PLAN: 1. Refill her anastrozole. 2. Will repeat her labs today, including CEA and CA 27.29. 3. Return in 6 months for next followup. 4. Plan to complete her anastrozole in 2018, to complete a 10 year treatment. 5. She will have a mammogram in January of 2017 for her annual exam. Addendum, Her CEA is now further elevated to 8.9, CA27.29 pending. Will need to possibly ge t a PET scan and/or repeat colonoscopy. Addendum to Addendum 2: Her CA 27.29 is normal, our proceed to order a PET/CT scan to look for possibl e underlying malignancy. Called pt, left message and spoke with spouse. Mónica Caruso MA - 05/16/2016 2:00 PM P STA Planting Machine Operator was offered to the patient and declined. tyler/ma documented in this en counter Plan of Treatment Not on filedocumented as of this encounter Results PET CT SKULL BASE TO MID-THIGHS (07/04/2016 2:23 PM PDT) + + | Specimen | + + | | + + + + + | Narrative | Performed At | + + + | [address] [place] [address] | [facility] | | [place] [address] DEPARTMENT | | [phone] | RADIOLOGY | | Name: PERRY PATTERSON ANN Phys: MARISOL ALBERTO | | | : 1950 Sex: F CSN: | | | [id number] MR# [id number] Exam Date: | | | 07/04/2016 EXAM: [...] Transcribed Date/Time: 07/05/2016 01:05 | | | Speech Writer: FLUENCY | | + + + + + | Procedure Note | + + | Interface, Radiology Results - 07/05/2016 1:09 AM PDT [address] | | [address] [place] [address] | | Name: PERRY PATTERSON ANN Phys: REMYDINORAHMARISOL S : 1950 Sex: F | | CSN: [id number] MR# [id number] Exam Date: 07/04/2016 EXAM:PET-CT CLINICAL | | [...] | | |Transcribed Date/Time: 07/05/2016 01:05 | |Speech Writer: FLUENCY | | | | | | | + + + +---------+ + + | Performing | Address | City/State/Zipcode | Phone Number | | Organization | | | | + +---------+ + + | [facility]MENT [facility] | | | | | RADIOLOGY | | | | + +---------+ + + [place] [...] | [facility] | [address] | [place] [address] | | | - [place] | [address] | | | + + + + + CARCINOEMBRYONIC AG, SERUM (05/16/2016 2:33 PM PST) + +-------+ + + + | Component | Value | Ref Range | Performed | Pathologist | | | | | At | Signature | + +-------+ + + + | CEA-CARCINO | 8.9 | ng/mL | [facility] | | | [facility] | | | A MEDICAL | | | AG, SERUM | | | CENTER | | + +-------+ + + + + + | Specimen | + + | Blood | + + + + + | Narrative | Performed At | + + + | Reference Range: Non-smokers: 0.0-3.0 ng/mL | [facility] | | Smokers: 0.0-5.0 ng/mL | MEDICAL CENTER | + + + + + + + + | Performing | Address | City/State/Zipcode | Phone Number | | Organization | | | | + + + + + | [facility] | [address] | [place] [address] | [phone] | | [facility] | Streets | | | + + + + + COMPLETE METABOLIC SET (NA,K,CL,CO2,BUN,CREAT,GLUC,CA,AST,ALT,BILI TOTAL,ALK PHOS,ALB,PROT TOTAL) (05/16/2016 2:33 PM PST) + +---------+ + + + | Component | Value | Ref Range | Performed | Pathologist | | | | | At | Signature | + +---------+ + + + | GLUCOSE, | 302 (H) | 70 - 105 mg/dL | [facility] | | | PLASMA | | | A MEDICAL | | | (LAB) | | | CENTER | | + +---------+ + + + | BUN, PLASMA | 14 | 6 - 26 mg/dL | [facility] | | | (LAB) | | [...] | | A MEDICAL | | | CZECH | | | CENTER | | + [...] equation recommended by the | [facility] | | National Kidney Disease Education Program. Estimated GFR | [facility] | | Interpretive Information: <60 mL/min/1.73 sq [...] + + + + | [facility] | And | [place] [address] | [phone] | | [facility] | Streets | | | + + + + + documented in this encounter Visit Diagnoses + + | Diagnosis | + + | Malignant neoplasm of female breast, unspecified laterality, unspecified site of | | breast - Primary | + + | Malignant neoplasm of right female breast, unspecified site of breast | + + documented in this encounter
--- OUTSIDE RECORDS SUMMARY | ~2018-09-10 | XMS | Encounter Summary ---
Demographics + + + | Address | [address] | | | [place] [address] | + + + | Home Phone | | + + + | Preferred Language | Unknown | + + + | Marital Status | | + + + | Jewish Affiliation | NON | + + + | Race | White | + + + | Ethnic Group | Not or | + + + Author + + + | Author | [facility] | + + + | Organization | [facility] | + + + | Address | Unknown | + + + | Phone | Unavailable | + + + Support + + + + + | Name | Relationship | Address | Phone | + + + + + | Ted Casas | ECON | [address] | | | | | [place] | | | | | [address] | | + + + + + | Carmen Renteria | ECON | [address] | | | | | [place] | | | | | [address] | | + + + + + | Vince Loredo | ECON | [place] | | + + + + + Care Team Providers + +------+ + | Care Machine Greaser Name | Role | Phone | + +------+ + | Dominick Clark | PCP | | + +------+ + Encounter Details +--------+ + + + + | Date | Type | Department | Care Team | Description | +--------+ + + + + | 07/05/ | Home Energy Auditor | [facility] | Erna Rainey, | | | 2016 | | Center - Medical | MD [address] | | | | | Oncology [address] | [place], [place] | | | | | Street The | [address] | | | | | [place] | [phone] | | | | | [address] | | | | | | [phone] | | | +--------+ + + + [...]
--- OUTSIDE RECORDS SUMMARY | ~2018-09-10 | XMS | Encounter Summary ---
Demographics + + + | Address | [address] | | | [place] [address] | + + + | Home Phone [...] + | Ted Patterson | ECON | [address] | | | | | [place] | | | | | [address] | | + + + + + | Carmen Renteria | ECON | [address] | | | | | [place] | | | | | [address] | | + + + + + | Vince Loredo | ECON | [place] | | + + + + + Care Team Providers + +------+ + | Care Membership Administrator Name | Role | Phone | + +------+ + | Adrián Gregory MD | PCP | | + +------+ + Encounter Details +--------+ + + + + | Date | Type | Department | Care Team | Description | +--------+ + + + + | 01/10/ | Office | [facility] [address] | Erna Rainey, | Progress Note | | 2009 | Visit-Trans | [address] | MD [address] | | | | cribed | [place] | [place] | | | | | [address] | [address] | | | | | | [phone] | | | | | | | [...] encounter Progress Notes Erna Rainey MD - 01/11/2010 9:18 AM [facility] [address] [place] [id number] [place] DATE OF SERVICE: January 10, 2010 DIAGNOSIS: Stage I (T1B, N0, N0) breast cancer. INTERIM HISTORY: The patient is taking Arimidex as part of her adjuvant treatment. She has hot flashes but she is able to tolerate pretty well. She just recently retired, she was able to travel with her in their fifth wheel, went to [facility] and [facility], etc.. She had a good time. She has no interim complaints except that her sugar is still challenging to control because of her diabetes. PHYSICAL EXAMINATION: VITAL SIGNS: She weighs 169 pounds. Blood pressure 114/69, pulse day 83, temperature 97.9, saturation 98%. GENERAL APPEARANCE: She appears comfortable, pleasant and not in acute distress. HEENT: Pupils equal and reactive, sclerae nonicteric. NECK: Supple without palpable mass. LUNGS: Clear. HEART: Rate is regular. BREASTS: Exam revealed surgical incisions well healed in the right breast, status post reconstruction. There are no palpable masses, discharges or nipple retraction. The left breast examination is normal. No axillary palpable lymphadenopathies bilaterally. ABDOMEN: Soft and nontender without organomegaly or mass. LABORATORY DATA: Not obtained today. IMPRESSION: There is no evidence of cancer recurrence. PLAN: I will continue her on a 6-month follow-up. Will obtain laboratory studies at next visit. PAKO/Juan /[id number] cc: Adrián Gregory M.D. Electronically Signed 05/10/10 1009 [address] MD LEONARDO Brown LEE ANN A [id number] : [id number] SERVICE DATE: 01/10/10 9 :11 AM PDTdocumented in this encounter Plan of Treatment Not on filedocumented as of this encounter Visit Diagnoses Not on filedocumented in this encounter"
--- OUTSIDE RECORDS SUMMARY | ~2018-09-10 | XMS | Encounter Summary ---
Demographics + + + | Address | [address] | | | [place] [address] | + + + | Home Phone | | + + + | Preferred Language | Unknown | + + + | Marital Status | | + + + | Amish Affiliation | NON | + + + | Race | White | + + + | Ethnic Group | Not or | + + + Author + + + | Author | [facility] | + + + | Organization | [facility] | + + + | Address | Unknown | + + + | Phone | Unavailable | + + + Support + + + + + | Name | Relationship | Address | Phone | + + + + + | Ted Casas | ECON | [address] | | | | | [place] | | | | | [address] | | + + + + + | Carmen Renteria | ECON | [address] | | | | | [place] | | | | | [address] | | + + + + + | Vince Loredo | ECON | [place] | | + + + + + Care Team Providers + +------+ + | Care Solar Designer Name | Role | Phone | + +------+ + PCP | Unavailable | + +------+ + Encounter Details +--------+------+ + + + | Date | Type | Department | Care Team | Description | +--------+------+ + + + | 05/07/ | Lab | Laboratory at [facility] | | | | 2008 | | [address] | | | | | | [place], [place] | | | | | | [address] | | | | | | [phone] | | | +--------+------+ + + + [...] + + documented in this encounter Results APTT (ACT. PART. THROMBO [...] + + + | [facility] | [address] | [place] [address] | | | PATHOLOGY | [address] | | | + + + + + | [facility] | [address] | [facility] [place] [address] | | | PATHOLOGY | [address] | | | + + + + + INR (05/07/2008 2:08 PM PST) + + + + + + | Component | Value | Ref Range | Performed | Pathologist | | | | | At | Signature | + + + + + + | INR | 1.06Comment: | 0.90 - 1.20 INR | [facility] | | | | INR | | [...] | + + + + + | [facility] DEPARTMENT OF | [address] | [place] [address] | | | PATHOLOGY | [address] | | | + + + + + | [facility] DEPARTMENT | [address] | [place] [address] | | | PATHOLOGY | [address] [...] DEPARTMENT OF | [address] | [place] [address] | | | PATHOLOGY | [address] | | | + + + + + | [facility] DEPARTMENT OF | [address] | [place] [address] | | | PATHOLOGY | [address] [...] DEPARTMENT OF | [address] | [place] [address] | | | PATHOLOGY | [address] | | | + + + + + | [facility] | [address] | [place] [address] | | | PATHOLOGY | [address] | | | + + + + + documented in this encounter Visit Diagnoses Not on filedocumented in this encounter"
--- OUTSIDE RECORDS SUMMARY | ~2018-09-10 | XMS | Encounter Summary ---
Demographics + + + | Address | [address] | | | [place] [address] | + + + | Home Phone | | + + + | Preferred Language | Unknown | + + + | Marital Status | | + + + | Roman Catholic Affiliation | NON | + + + | Race | White | + + + | Ethnic Group | Not or | + + + Author + + + | Author | [facility] | + + + | Organization | [facility] | + + + | Address | Unknown | + + + | Phone | Unavailable | + + + Support + + + + + | Name | Relationship | Address | Phone | + + + + + | Ted Patterson | ECON | [address] | | | | | [place] | | | | | [address] | | + + + + + | Carmen Renteria | ECON | [address] | | | | | [place] | | | | | [address] | | + + + + + | Vince Loredo | ECON | [place] | | + + + + + Care Team Providers + +------+ + | Care Throat Cutter Name | Role | Phone | [...] | | 2006 | Work-Transc | [facility] | [phone] | | | | ribrebecca | [place] | | | | | | [address] | | | +--------+ + + + [...] Notes Carlton, Faculty - 04/02/2007 2:51 PM [facility] SOCIAL WORK ASSESSMENT [address] [place] [address] ROMAN PATTERSON DATE OF SERVICE: April 01, 2007 OVERVIEW: The patient is a 57-year-old white, female. She is diagnosed with breast cancer and met with Dr. Rainey, her medical oncologist, for the first time today. She meets with her surgeon, Dr. Parish in [place] on March,. She will meet with Dr. Rainey again to review her pathology report and decide on treatment options during the first week of April. The patient lives in [place], [place] with her spouse. Because her mother lives in [place] she will not be needing a [facility] as a residence. She was accompanied by her spouse and mother today. EMOTIONAL BEHAVIORAL STATUS: Fair. The patient is experiencing tearfulness and anxiety about her recent cancer diagnosis. She states that she is worried about so many things being "out of my control" since her diagnosis. 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 She would like to be able to work part-time during her treatment if possible. She denies problems with sleep and her appetite. She reports successfully quitting smoking 2 years ago with the help of acupuncture therapy. As such, she is keen to use acupuncture and nutritional counseling at [facility] after she knows the specifics of her treatment plan. CLINICAL IMPRESSION: The patient is coping reasonably well with the new diagnosis of breast cancer. FAMILY CAREGIVER STATUS: Good. The patient has a supportive , mother and daughter. The daughter also lives in [place], [place]. No deficits noted. FINANCIAL STATUS: Good. The patient reports that she has adequate income and good medical insurance coverage. No deficits noted. SUMMARY: This social psychologist provided an overview of the integrative medicine available at [facility]. I provided an education and motivational interviewing [...] and access to counseling from a registered phlebotomist part time. The patient knows how to contact me directly in the interim. ELLIE/Juan ROMAN PATTERSON [id number] ADMIT DATE: /[id number] cc: Erna Rainey MD Electronically Signed SISSY Suárez LEE ANN A [id number] ADMIT DATE: documented in t his encounter Plan of Treatment Not on filedocumented as of this encounter Visit Diagnoses Not on filedocumented in this encounter
--- OUTSIDE RECORDS SUMMARY | ~2018-09-10 | XMS | Encounter Summary ---
Demographics + + + | Address | [address] | | | [place] [address] | + + + | Home Phone | | + + + | Preferred Language | Unknown | + + + | Marital Status | | + + + | Taoism Affiliation | NON | + + + | Race | White | + + + | Ethnic Group | Not or | + + + Author + + + | Author | [facility] | + + + | Organization | [facility] | + + + | Address | Unknown | + + + | Phone | Unavailable | + + + Support + + + + + | Name | Relationship | Address | Phone | + + + + + | Ted Patterson | ECON | [address] | | | | | [place] | | | | | [address] | | + + + + + | Carmen Renteria | ECON | [address] | | | | | [place] | | | | | [address] | | + + + + + | Vince Loredo | ECON | [place] | | + + + + + Care Team Providers + +------+ + | Care Patient Accounts Clerk Name | Role | Phone | + +------+ + | Adrián Gregory MD | PCP | | + +------+ + Encounter Details +--------+ + + + + | Date | Type | Department | Care Team | Description | +--------+ + + + + | 07/07/ | Office | [facility] | Erna Rainey, | Progress Note | | 2009 | Visit-Trans | [address] | MD [address] | | | | cribed | [place] | [place] | | | | | [address] | [address] | | | | | | [phone] | | | | | | | [...] encounter Progress Notes Jakob Rainey Leandro - 07/07/2009 2:14 PM [facility] MEDICAL ONCOLOGY [address] [place] [address] ROMAN PATTERSON DATE OF SERVICE: July 07, 2009 DIAGNOSIS: Stage I, T1b, N0, M0) breast cancer. TREATMENT: Arimidex 1 mg p.o. daily. INTERVAL HISTORY: The patient returned today for a 6-month follow-up. She is receiving adjuvant hormonal therapy of Arimidex, she is doing well. She still has mild arthralgia but nothing interferes with her lifestyle. In addition, she also has tendonitis of her left knee, that did not change. She has no other complaints otherwise. PHYSICAL EXAMINATION: VITAL SIGNS: Her weight today is 170.2 pounds. Blood pressure 124/71, pulse 77, temperature 97.9, saturation of 98%. GENERAL APPEARANCE: She appears comfortable and well-nourished, mildly obese. HEENT: Pupils equal, round and reactive, sclerae nonicteric. NECK: Supple without palpable mass, no JVD or thyroid enlargement. LUNGS: Clear to auscultation bilaterally, no wheeze or rales, no labored breathing. HEART: S1, S2, regular rate and rhythm. BREAST EXAM: Revealed no masses, nipple discharge of the left breast. She had an incision at the 10 o'clock position, it was removal of a benign nodule. Right breast is status post reconstruction, surgical scar is well-healed. There is no palpable mass, no nipple discharge. No axillary palpable lymphadenopathies bilaterally. LABORATORY DATA: WBC of 5.2, hemoglobin 12.8, platelet count 162,000, BUN 18, creatinine 0.53, AST 24, ALT 24, alkaline phosphatase 54, total bilirubin of 0.6. IMPRESSION: Breast cancer without recurrence. PLAN: Will continue Arimidex and have her return in another 6 months for follow- up. PAKO/Juan /[id number] Electronically Signed X MD LEONARDO Brown LEE ANN A [id number] : 52 [id number] SERVICE DATE: 07/07/09 12 :07 PM PDTdocumented in this encounter Plan of Treatment Not on filedocumented as of this encounter Visit Diagnoses Not on filedocumented in this encounter"
--- OUTSIDE RECORDS SUMMARY | ~2018-09-10 | XMS | Encounter Summary ---
Demographics + + + | Address | [address] | | | [place] [address] | + + + | Home Phone | | + + + | Preferred Language | Unknown | + + + | Marital Status | | + + + | Confucianist Affiliation | NON | + + + | Race | White | + + + | Ethnic Group | Not or | + + + Author + + + | Author | [facility] | + + + | Organization | [facility] | + + + | Address | Unknown | + + + | Phone | Unavailable | + + + Support + + + + + | Name | Relationship | Address | Phone | + + + + + | Ted Casas | ECON | [address] | | | | | [place] | | | | | [address] | | + + + + + | Carmen Renteria | ECON | [address] | | | | | [place] | | | | | [address] | | + + + + + | Vince Loredo | ECON | [place] | | + + + + + Care Team Providers + +------+ + | Care Rope Walker Name | Role | Phone | + +------+ + PCP | Unavailable | + +------+ + Reason for Referral PROC - Inpatient Surgery (Routine) +--------+--------+ + + + + | Status | Reason | Specialty | Diagnoses / | Referred By | Referred To | | | | | Procedures | Contact | Contact | +--------+--------+ + + + + | Closed | | Plastic | Diagnoses | Jv, | Jv, | | | | Surgery | Acquired | MD Jelena | MD Jelena | | | | | absence of | [address] | | | | | breast and | [address] | Ave | | | | | nipple | [facility] [place] | [place], [place] | | | | | Procedures | [address] | [address] | | | | | REQUEST TO | Phone: | Phone: | | | | | SURGERY | [phone] | [phone] | | | | | [employer] EQUIPMENT TENDER | Fax: | Fax: | | | | | CT BREAST | [phone] | [phone] | | | | | RECONSTRUCT | | | | | | | W TRAM [facility] | | | | | | | ANAS | | | +--------+--------+ + + + + Reason for Visit + + + | Reason | Comments | + + + | New patient | Right breast recon. | | consultation | | + + + Encounter Details +--------+---------+ + + + | Date | Type | Department | Care Team | Description | +--------+---------+ + + + | 01/20/ | Office | Plastic and | Jelena Carias, | Acquired Absence of | | 2007 | Visit | Reconstructive | [address] | Breast (Primary Dx) | | | | Surgery at [facility] [address] | [place], [place] | | | | | [address] Mail | [address] | | | | | Code: [facility] | [phone] | | | | | for Health and | | | | | | [facility] Floor | | | | | | [place], [place] | | | | | | [address] | | | | | | [phone] | | | +--------+---------+ + + + [...] + + + | Blood Pressure | 117/67 | 01/21/2008 10:28 AM | | | | | PDT | | + + + + + | Pulse | 119 | 01/21/2008 10:28 AM | | | | | PDT | | + + + + + | Temperature | - | - | | + + + + + | Respiratory Rate | 19 | 01/21/2008 10:28 AM | | | | | PDT | | + + + + + | Oxygen Saturation | 97% | 01/21/2008 10:28 AM | | | | | PDT | | + + + + + | Inhaled Oxygen | - | - | | | Concentration | | | | + + + + + | Weight | 72.8 kg (160 lb 9.6 | 01/21/2008 10:28 AM | | | | oz) | PDT | | + + + + + | Height | 157.5 cm (5' 2") | 01/21/2008 10:28 AM | | | | | PDT | | + + + + + | Body Mass Index | 29.37 | 01/21/2008 10:28 AM | | | | | PDT | | + + + + + documented in this encounter Progress Notes Jelena Carias - 01/21/2008 6:27 PM PDTPlastics Staff I saw Roman Flores along with Dr. Arciniega. I have reviewed his note and edited it. This pt has a moderately large and ptotic left breast. She has an abdomen favorable for TRAM flap. Au tologous tissue recon will be the best way to give her symmetry. A TRAM flap could be done either pedicled or free. Because of concerns of atherosclerotic disease with her hx of ga l aretry stenosis, I think we will proceed with a pedicled flap. She will also benefit from a future left mastopexy and sebaceous cyst removal. She will be scheduled. Photos were done today.Electronically signed by Jelena Carias at 1 6:27 PM PDTArjun Arciniega - 01/21/2008 11:43 AM PDT BREAST RECONSTRUCTION CONSULT SUBJECTIVE History of Present Illness: Roman Casas is a 57 y.o. female diagnosed with right breast cancer in 2006 by biopsy. Tr eatment thus far includes right total mastectomy and sentinel lymph node biopsy. Pt has not had radiation and has not had chemotherapy and there are no plans in the future. Currently on Arimadex. Pt is considering all reconstruction options. Last mammogram: 01/19 Current bra size: 38B Desired cup size: same Family history of breast disease: no Past Medical History Diagnosis Date Peripheral Vascular Disease Hypertension Dyslipidemia Breast Cancer GERD (Gastroesophageal Reflux Disease) Past Surgical History Procedure Date Hx mastectomy Angioplasty, renal, bilateral Hx hysterectomy Allergies Allergen Reactions Sulfa (Sulfonamides) Hives Penicillin G Hives Tylenol-codeine #3 (Acetaminophen-codeine) Itching Vicodin (Hydrocodone-acetaminophen) Nausea/Vomiting Current outpatient prescriptions Medication Sig ARIMIDEX 1 mg Oral Tablet take 1 [...] D ORAL 1 tab p.o. twice daily Social history: History Substance Use Topics Tobacco Use: Quit -- 1.0 packs/day for 30 years Quit date: 04/15/2003 Alcohol Use: Not on file No family history on file. Review of Systems: Negative for: abdominal pain . Living at home with patient: PHYSICAL EXAM Vitals: BP 117/67 | Pulse 119 | Resp 19 | Ht 1.575 m (5' 2") | Wt 72.848 kg (160 lb 9.6 oz) | SpO2 97% General appearance: Well-developed and well-nourished adult female in no apparent distress. Neck: Supple without lymphadenopathy. Right Breast: Surgically absent Left Breast: Sternal notch to nipple distance: 23 cm Breast width: 21 cm Mid-line to nipple: 13cm Ptosis: gr 2 Palpation reveals a discrete 1 cm subcutaneous cyst with an overlying sinus of the left sofy ast skin medially bilaterally. No right chest wall masses. There is no adenopathy or nipple discharge. Abdomen: Soft, non-tender. Previous abdominal scars located pfannenstiel. Skin envelope i s favorable for flap. Amount of adipose tissue is favorable for flap. There are no palpabl e hernias or abdominal masses. Multiple Striae. Midline diastasis: no Back: Scars: no C: CTA, RRR Extremities: Warm and well-perfused. Neuro: intact Assessment: Surgical options discussed with pt, including Autologous tissue: TRAM We will proceed wit h pedicled TRAM. Risks of procedure including risks for transverse rectus abdominis myocuta neous (TRAM) were explained and all questions were answered. Also plan left mastopexy for sy mmetry. Photographs were taken today. 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
--- OUTSIDE RECORDS SUMMARY | ~2018-09-10 | XMS | Encounter Summary ---
Demographics + + + | Address | [address] | | | [place] [address] | + + + | Home Phone [...] + | Ted Patterson | ECON | [address] | | | | | [place] | | | | | [address] | | + + + + + | Carmen Renteria | ECON | [address] | | | | | [place] | | | | | [address] | | + + + + + | Vince Loredo | ECON | [place] | | + + + + + Care Team Providers + +------+ + | Care Linen Tech Name | Role | Phone | [...] [place] | | | | | [address] | [address] | | | | | | [phone] | | | | | | | [...] Erna Rainey MD - 02/02/2015 3:18 PM [facility] MEDICAL ONCOLOGY [address] [place] [address] ROMAN PATTERSON DATE OF SERVICE: February 02, [...] study later next year. PAKO/MedQ ROMAN PATTERSON [id number] : 52 [id number] SERVICE DATE: 02/02/15 /[id number] cc: Kyle Garcia MD Electronically Signed 02/03/15 0944 X MD LEONARDO Brown LEE ANN [id number] : 52 [id number] SERVICE DATE: 02/02/15 9 :39 AM PDTdocumented in this encounter Plan of Treatment Not on filedocumented as of this encounter Visit Diagnoses Not on filedocumented in this encounter"
--- OUTSIDE RECORDS SUMMARY | ~2018-09-10 | XMS | Encounter Summary ---
Demographics + + + | Address | [address] | | | [place] [address] | + + + | Home Phone | | + + + | Preferred Language | Unknown | + + + | Marital Status | | + + + | Congregational Affiliation | NON | + + + [...] + | Ted Casas | ECON | [address] | | | | | [place] | | | | | [address] | | + + + + + | Carmen Renteria | ECON | [address] | | | | | [place] | | | | | [address] | | + + + + + | Vince Loredo | ECON | [place] | | + + + + + Care Team Providers + +------+ + | Care Production Supervisor Trainee Name | Role | Phone | + +------+ + | Adrián Gregory MD | PCP | | + +------+ + Encounter Details +--------+ + + + + | Date | Type | Department | Care Team | Description | +--------+ + + + + | 12/18/ | Results | [facility] | Erna Rainey, | | | 2011 | Only | Department | MD [address] | | | | | | [address] [place] | | | | | | [address] | | | | | | [phone] | | | | | | | [...] + | COMPLETE METABOLIC | Routin | 12/19/2011 | | Results for this | | SET | e | 9:20 AM | | procedure are in the | | (NA,K,CL,CO2,BUN,CRE | | PDT | | results section. | | AT,GLUC,CA,AST,ALT,B | | | | | | VINCE TOTAL,ALK | | | | | | PHOS,ALB,PROT TOTAL) | | | | | + +--------+ + + + | CBC W/DIFF, REFLEX | Routin | 12/19/2011 | | Results for this | | | e | 9:19 AM | | procedure are in the | | | | PDT | | results section. | + +--------+ + + + documented in this encounter Results COMPLETE METABOLIC SET (NA,K,CL,CO2,BUN,CREAT,GLUC,CA,AST,ALT,BILI TOTAL,ALK PHOS,ALB,PROT TOTAL) (12/19/2011 9:20 AM PDT) + + + + + + | Component | Value | Ref Range | Performed | Pathologist | | | | | At | Signature | + + + + + + | SODIUM, | 141 | 137 - 146 MEQ/L | [facility] | | | PLASMA | | | A MEDICAL | | | (LAB) | | | CENTER | | + + + + + + | POTASSIUM, | 3.8 | 3.5 - 5.2 MEQ/L | [facility] | | | PLASMA | | | A MEDICAL | | | (LAB) | | | CENTER | | + + + + + + | CO2 | 22 | 22 - 28 MEQ/L | [facility] [...] + + + | ANION GAP | 16.8 (H) | 8 - 16 MEQ/L | [facility] | | | | | | A MEDICAL | | | | | | CENTER | | + + + + + + | GLUCOSE, | 158 (H) | 70 - 105 MG/DL | [facility] | | | PLASMA | | | A MEDICAL | | | (LAB) | | | CENTER | | + + + + + + | BUN, PLASMA | 15 | 8 - 30 MG/DL | [facility] | | | (LAB) | | | A MEDICAL | | | | | | CENTER | | + + + + + + | CREATININE | 0.58 (L) | 0.6 - 1.1 MG/DL | [facility] | | | PLASMA | | | A MEDICAL | | | (LAB) | | | CENTER | | + + + + + + | BUN/CREATIN | 25 (H) | 6 - 20 RATIO | [facility] | | | INE RATIO | | | A MEDICAL | | | | | | CENTER | | + + + + + + | CALCIUM, | 9.8 | 8.5 - 10.8 | [facility] | | | PLASMA | | MG/DL | A MEDICAL | | | (LAB) | | | CENTER | | + + + + + + | AST(SGOT) | 30 | 10 - 41 U/L | [facility] | | | | | | A MEDICAL | | | | | | CENTER | | + + + + + + | ALT (SGPT) | 35 | 7 - 51 U/L | [facility] | | | | | | A MEDICAL | | | | | | CENTER | | + + + + + + | ALK PHOS | 48 | 40 - 180 U/L | [facility] [...] + + + + | ALBUMIN, | 4.2 [...] + + + + | ESTIMATED | 113.1 | >60 | [facility] | | | [...] | + + + + + | [facility] | And | [place] [address] | [phone] | | MEDICAL [facility] | Streets | | | + + + + + | [facility] | And | [place] [address] | | | MEDICAL CENTER | Streets | | | + + + + + SANDY CAMP (12/19/2011 9:19 AM PDT) + +---------+ + + + | Component | Value | Ref Range | Performed | Pathologist | | | | | At | Signature | + +---------+ + + + | WHITE BLOOD | 4.8 | 4.3 - 11.0 X10 | [facility] | | | CELL COUNT | | 3/uL | A MEDICAL | | | | | | CENTER | | + +---------+ + + + | HEMOGLOBIN | 13.1 | 12.0 - 16.0 | [facility] | | | | | g/dL | A MEDICAL | | | | | | CENTER | | + +---------+ + + + | RED BLOOD | 4.52 | 4.2 - 5.4 X10 | [facility] | | | CELL COUNT | | 6/uL | A MEDICAL | | | | | | CENTER | | + +---------+ + + + | HEMATOCRIT | 39.3 | 38.0 - 47.0 % | [facility] | | | | | | A MEDICAL | | | | | | CENTER | | + +---------+ + + + | MCV | 86.9 | 82 - 100 fl | [facility] | | | | | | A MEDICAL | | | | | | CENTER | | + +---------+ + + + | MCH | 28.9 | 28.0 - 32.0 pg | [facility] | | | | | | A MEDICAL | | | | | | CENTER | | + +---------+ + + + | MCHC | 33.2 | 32 - 36 g/dL | [facility] | | | | | | A MEDICAL | | | | | | CENTER | | + +---------+ + + + | RDW | 13.8 | 12 - 15 fL | [facility] | | | | | | A MEDICAL | | | | | | CENTER | | + +---------+ + + + | PLATELET | 176 | 150 - 450 X10 3 | [facility] | | | COUNT | | | A MEDICAL | | | | | | CENTER | | + +---------+ + + + | MPV | 8.2 (L) | 9.0 - 12.0 fL | [facility] | | | | | | A MEDICAL | | | | | | CENTER | | + +---------+ + + + | NEUTROPHIL | 45.4 | 40 - 80 % | [facility] | | | % | | | A MEDICAL | | | | | | CENTER | | + +---------+ + + + | NEUTROPHIL | 2.2 | 1.9 - 8.0 x10 | [facility] | | | # | | 3/UL | A MEDICAL | | | | | | CENTER | | + +---------+ + + + | LYMPHOCYTE | 45.0 | 20 - 50 % | [facility] | | | % | | | A MEDICAL | | | | | | CENTER | | + +---------+ + + + | LYMPHOCYTE | 2.1 | 0 - 6 x10 3/UL | [facility] | | | # | | | A MEDICAL | | | | | | CENTER | | + +---------+ + + + | EOS % | 3.7 | 0 - 5 % | [facility] [...] BASO % | 0.5 | 0 - 1 % | [facility] [...] + + + | MONOCYTE % | 5.4 | 2 - 10 % | [facility] [...] + + + | BANDS % | QUICK MIXER OPERATOR | 0 - 7 % | [facility] | | | | | | A MEDICAL | | | | | | CENTER | | + +---------+ + + + | BANDS # | QUICK MIXER OPERATOR | 0.00 - 0.70 x10 | [facility] [...] | + + + + + | [facility] | And [place] | [place] [address] | [phone] | | [facility] | Streets | | | + + + + + | [facility] | And | [place] [address] | | | [facility] | [facility] | | | + + + + + documented in this encounter Visit Diagnoses Not on filedocumented in this encounter"
--- OUTSIDE RECORDS SUMMARY | ~2018-09-10 | XMS | Encounter Summary ---
Demographics + + + | Address | [address] | | | [place] [address] | + + + | Home Phone [...] + + + | Author | [facility] | + + + | Organization | [facility] | + + + | Address | Unknown | + + + | Phone | Unavailable | + + + Support + + + + + | Name | Relationship | Address | Phone | + + + + + | Ted Casas | ECON | [address] | | | | | [place] | | | | | [address] | | + + + + + | Carmen Renteria | ECON | [address] | | | | | [place] | | | | | [address] | | + + + + + | Vince Loredo | ECON | [place] | | + + + + + Care Team Providers + +------+ + | Care Manager Talent Management Name | Role | Phone | + [...] | | | [address] | [address] | female breast (HCC) | | | | [place] | [phone] | (Primary Dx) | | | | [address] | | | | | | [phone] | | | +--------+---------+ + + + [...] HISTORY: Roman Flores returned today for a 3-month followup. She [...] (SGPT) (U/L) 08/21/2016 23 7-51 EGFR - PARAGUAYAN (mL/min) 08/21/2016 >60 >60- EGFR NON -PARAGUAYAN (mL/min) 08/21/2016 >60 >60- ANION GAP (mmol/L) [...] Mary MA - 08/21/2016 3:30 PM PDTA Medical Record Administrator was offered to the patient and declined. [...] | CEA-CARCINO | 8.2 | ng/mL | [facility] | | | EMBRYONIC | | | [...] + + | [facility] | And | [place] [address] | [phone] | | MEDICAL WEBSTER | Arjays | | | + + + + [...] | | A MEDICAL | | | PARAGUAYAN | | | CENTER | | + [...] | FASTING 8 | No | | [facility] | | | HOURS [place] | [...] equation recommended by the | [facility] | | National Kidney Disease Education Program. Estimated GFR | [facility] | | Interpretive Information: <60 mL/min/1.73 sq [...] + + + + | [facility] | And | [place] [address] | [phone] | | MEDICAL CENTER | Streets | [...]
--- OUTSIDE RECORDS SUMMARY | ~2018-09-10 | XMS | Encounter Summary ---
Demographics + + + | Address | [address] | | | [place] [address] | + + + | Home Phone [...] + | Ted Patterson | ECON | [address] | | | | | [place] | | | | | [address] | | + + + + + | Carmen Renteria | ECON | [address] | | | | | [place] | | | | | [address] | | + + + + + | Vince Loredo | ECON | [place] | | + + + + + Care Team Providers + +------+ + | Care Boat Canvas Maker And Installer Name | Role | Phone | + [...] [place] | | | | | [address] | [address] | | | | | | [phone] | | | | | | | [...] Jakob Rainey [place] - 09/02/2008 9:16 PM [facility]COL[facility] [address] [place] [address] ROMAN PATTERSON DATE OF SERVICE: September 02, [...] continue every 4-months followup. XF/MedQ ROMAN PATTERSON [id number] : 52 [id number] SERVICE DATE: 09/02/08 /[id number] cc: Adrián Gregory M.D. Electronically Signed X MD LEONARDO Brown LEE ANN A [id number] : 52 [id number] SERVICE DATE: 09/02/08 12 :13 PM PDTdocumented in this encounter Plan of Treatment Not on filedocumented as of this encounter Visit Diagnoses Not on filedocumented in this encounter"
--- OUTSIDE RECORDS SUMMARY | ~2018-09-10 | XMS | Encounter Summary ---
Demographics + + + | Address | [address] | | | [place] [address] | + + + | Home Phone [...] + | Ted Casas | ECON | [address] | | | | | [place] | | | | | [address] | | + + + + + | Carmen Renteria | ECON | [address] | | | | | [place] | | | | | [address] | | + + + + + | Vince Loredo | ECON | [place] | | + + + + + Care Team Providers + +------+ + | Care Java J2Ee Lead Name | Role | Phone | + +------+ + | Dominick Clark | PCP | | + +------+ + Reason for Visit + + + | Reason | Comments | + + + | Follow-up visit | H/O Breast Ca | + + + Encounter Details +--------+---------+ + + + | Date | Type | Department | Care Team | Description | +--------+---------+ + + + | 09/10/ | Office | [facility] | Erna Rainey, | History of breast | | 2018 | Visit | Center - Medical | MD [address] | cancer (Primary Dx) | | | | Oncology [address] | [place], [place] | | | | | The | [address] | | | | | [place], [place] | [phone] | | | | | [address] | | | | | | [phone] | | | +--------+---------+ + + + [...] encounter Progress Notes Erna Rainey MD - 09/10/2017 11:00 AM PDTFormatting of this note might be different fro m the original. DATE OF SERVICE: September 10, 2017 DIAGNOSIS: Breast cancer stage I (T1b N0 M0) diagnosed in April of 2007. CURRENT TREATMENT: Anastrozole 1 mg p.o. daily. INTERVAL HISTORY: Roman Flores returned today for a 6-month followup. She had a unremarkable 6 months. She still have hot flashes and some arthralgia but it is not disabling. She just completed her anastrozole last week, fulfilling 10 years of treatment. She had CEA increase 2 years ago, work up including colonoscopy, which was a incomplete. S he had a virtual colonoscopy by CT December 26, 2015, which revealed no evidence of maligna ncy. As her CEA further increase, I ordered a PET scan, which was done in June of this year , again negative. Meanwhile, her CEA remains elevated but there is no further increase. She was diagnosed in April 2007. She elected to continue anastrozole beyond 5 years. Evan villarreal is overall doing well. For her arthralgia due to anastrozole, she is occasionally taking Percocet. She is now off anastrozole. She also carries a diagnosis of osteopenia. Her bone density has been followed. She is on calcium and vitamin D. Her last mammogram on March, is negative per patient report. Past Medical History: Diagnosis Date Breast cancer (HCC) Dyslipidemia GERD (gastroesophageal reflux disease) Hypertension Peripheral vascular disease (HCC) ROS: No new pain, some hot flashes, no weight changes, reported good appetite. PHYSICAL EXAMINATION: Last Vitals: BP 141/85 | Pulse 95 | Temp (Src) 36.9 C (98.4 F) (Tympanic) | Ht 1.575 m (5' 2.01") | Wt 93.8 kg (206 lb 11.2 oz) | SpO2 94% | BMI 37.8 kg/(m^2) GENERAL APPEARANCE: She appears to be [...] She has lymphedema in her lower extremities. Appointment on 09/10/2017 Component Date Value Range GLUCOSE, PLASMA (LAB) (mg/dL) 09/10/2017 161* 70-105 BUN, PLASMA (LAB) (mg/dL) 09/10/2017 12 6-26 CREATININE, PLASMA (mg/dL) 09/10/2017 0.5* 0.6-1.1 SODIUM, PLASMA (LAB) (mmol/L) 09/10/2017 144 137-146 POTASSIUM, PLASMA (LAB) (mmol/L) 09/10/2017 4.2 3.4-5.3 CHLORIDE, PLASMA (LAB) (mmol/L) 09/10/2017 104 96-106 TOTAL CO2, PLASMA (LAB) (mmol/L) 09/10/2017 25 18-30 CALCIUM, PLASMA (LAB) (mg/dL) 09/10/2017 9.5 8.5-10.8 BILIRUBIN TOTAL (mg/dL) 09/10/2017 0.2 0.2-1.2 TOTAL PROTEIN, PLASMA (LAB) (g/dL) 09/10/2017 6.6 5.8-8.5 ALBUMIN, PLASMA (LAB) (g/dL) 09/10/2017 4.0 3.5-5.0 ALK PHOS (U/L) 09/10/2017 68 32-180 AST(SGOT) (U/L) 09/10/2017 22 10-41 ALT (SGPT) (U/L) 09/10/2017 20 7-51 EGFR - GREEK (mL/min) 09/10/2017 >60 >60- EGFR NON -GREEK (mL/min) 09/10/2017 >60 >60- ANION GAP (mmol/L) 09/10/2017 15 12-20 BUN/CREATININE RATIO ( ) 09/10/2017 24 - FASTING 8 HOURS OR MORE? 09/10/2017 No - CEA-CARCINOEMBRYONIC AG, SERUM (ng/mL) 09/10/2017 8.3 - WBC COUNT (K/cu mm) 09/10/2017 4.6 3.5-10.8 RED CELL COUNT (M/cu mm) 09/10/2017 4.70 4.00-5.20 HEMOGLOBIN (g/dL) 09/10/2017 13.3 12.0-16.0 HEMATOCRIT (%) 09/10/2017 38.1 36.0-46.0 MCV (fL) 09/10/2017 81.1 80.0-96.0 MCH (pg) 09/10/2017 28.3 28.0-34.7 MCHC (g/dL) 09/10/2017 34.9 33.0-35.5 RDW (%) 09/10/2017 14.9 11.5-15.0 PLATELET COUNT (K/cu mm) 09/10/2017 122* 150-400 MPV (fL) 09/10/2017 7.7 7.5-11.2 NEUTROPHIL % (%) 09/10/2017 48.4* 50.0-70.0 LYMPHOCYTE % (%) 09/10/2017 42.0 18.0-42.0 MONOCYTE % (%) 09/10/2017 6.5 3.5-9.0 EOS % (%) 09/10/2017 1.9 1.0-3.0 BASO % (%) 09/10/2017 1.2 0.0-2.0 NEUTROPHIL # (K/cu mm) 09/10/2017 2.20 1.80-7.70 LYMPHOCYTE # (K/cu mm) 09/10/2017 1.90 1.00-4.80 MONOCYTE # (K/cu mm) 09/10/2017 0.30 0.10-0.90 EOS # (K/cu mm) 09/10/2017 0.10 0.00-0.50 BASO # (K/cu mm) 09/10/2017 0.10 0.00-0.10 IMPRESSION: 1. No evidence of breast cancer recurrence. 2. Arthralgia due to anastrozole. Completed anastrozole 10 years last week. 3. Osteopenia, stable in the past. Last DEXA scan November 01, 2015. 4. CEA increase workup negative, including colonoscopy and PET, now CEA slightly decreased and stablized. Today 8.3, again stable. PLAN: 1. Will change her to once a year followup. 2. She will continue once a year mammogram. 3. Repeat labs again when she returns. Mónica Mary MA - 09/10/2017 11:00 AM PDT Patient presented in clinic today for Chief Complaint Patient presents with Follow-up visit H/O Breast Ca BP 141/85 | Pulse 95 | Temp (Src) 36.9 C (98.4 F) (Tympanic) | Ht 1.575 m (5' 2.01") | Wt 93.8 kg (206 lb 11.2 oz) | SpO2 94% | BMI 37.8 kg/(m^2) Allergies Allergen Reactions Penicillin G Hives Quinine Hives Sulfa (Sulfonamide Antibiotics) Hives Tylenol-Codeine #3 [Acetaminophen-Codeine] Pruritus Vicodin [Hydrocodone-Acetaminophen] Nausea/Vomiting Cephalexin Pruritus Medications history reviewed. A self sealing fuel tank repairer was offered to the patient and they declined. Mónica Cote MA documented in this en counter Plan of Treatment + +------+--------+ + + | Name | Type | Priori | Associated Diagnoses | Order Schedule | | | | ty | | | + +------+--------+ + + | CBC W/DIFF, REFLEX | Lab | Routin | History of breast | Expected: 09/10/2017 | | | | e | cancer | (Approximate), | | | | | | Expires: 10/10/2018 | + +------+--------+ + + | COMPLETE METABOLIC | Lab | Routin | History of breast | Expected: 09/10/2017 | | SET | | e | cancer | (Approximate), | | (NA,K,CL,CO2,BUN,CRE | | | | Expires: 10/10/2018 | | AT,GLUC,CA,AST,ALT,B | | | | | | VINCE TOTAL,ALK | | | | | | PHOS,ALB,PROT TOTAL) | | | | | + +------+--------+ + + | CARCINOEMBRYONIC AG, | Lab | Routin | History of breast | Expected: 09/10/2017 | | SERUM | | e | cancer | (Approximate), | | | | | | Expires: 10/10/2018 | + +------+--------+ + + documented as of this encounter Visit Diagnoses + + | Diagnosis | + + | History of breast cancer - Primary Personal history of malignant neoplasm of breast | + + documented in this encounter
--- OUTSIDE RECORDS SUMMARY | ~2018-09-10 | XMS | Encounter Summary ---
Demographics + + + | Address | [address] | | | [place] [address] | + + + | Home Phone | | + + + | Preferred Language | Unknown | + + + | Marital Status | | + + + | Latter-Day Affiliation | Unknown | + + + | Race | Unknown | + + + | Ethnic Group | Unknown | + + + Author + + + | Author | [facility] | + + + | Organization | [facility] | + + + | Address | Unknown | + + + | Phone | Unavailable | + + + Support + + + + + | Name | Relationship | Address | Phone | + + + + + | Ted Casas | ECON | [address] | | | | | [place] | | | | | [address] | | + + + + + | Jersey Marroquin | ECON | [place] | | | | | [address] | | + + + + + Care Team Providers + +------+ + | Care Metal Crafts Teacher Name | Role | Phone | + +------+ + | Dominick Clark | PCP | | + +------+ + Encounter Details +--------+ + + + + | Date | Type | Department | Care Team | Description | +--------+ + + + + | 03/08/ | Documentati | [facility] | Wally Shell, | | | 2019 | on Only | [facility] | [address] | | | | | [address] | [address] [place], [place] | | | | | [place], [place] | [address] | | | | | [address] | | | | | | [phone] | | | +--------+ + + + [...] | | | | | | [place] | | | | | | [address] | | | | | | | | +--------+---------+ + + + as of this encounter Visit Diagnoses Not on filein this encounter"
--- OUTSIDE RECORDS SUMMARY | ~2018-09-10 | XMS | Encounter Summary ---
Demographics + + + | Address | [address] | | | [place] [address] | + + + | Home Phone [...] + | Ted Casas | ECON | [address] | | | | | [place] | | | | | [address] | | + + + + + | Carmen Renteria | ECON | [address] | | | | | [place] | | | | | [address] | | + + + + + | Vince Loredo | ECON | [place] | | + + + + + Care Team Providers + +------+ + | Care Retail Center Receptionist Name | Role | Phone | + [...] | | | | Street The | [address] | | | | | [place], [place] | [phone] | | | | | [address] | | | | | | [phone] | | | +--------+ + + + [...]
--- OUTSIDE RECORDS SUMMARY | ~2018-09-10 | XMS | Encounter Summary ---
Demographics + + + | Address | [address] | | | [place] [address] | + + + | Home Phone [...] + | Ted Casas | ECON | [address] | | | | | [place] | | | | | [address] | | + + + + + | Carmen Renteria | ECON | [address] | | | | | [place] | | | | | [address] | | + + + + + | Vince Loredo | ECON | [place] | | + + + + + Care Team Providers + +------+ + | Care Aircraft Part Assembler Name | Role | Phone | + [...] | | | [address] | [address] | female breast (HCC) | | | | [place] | [phone] | (Primary Dx) | | | | [address] | | | | | | [phone] | | | +--------+---------+ + + + [...] (SGPT) (U/L) 08/21/2016 23 7-51 EGFR - PERUVIAN (mL/min) 08/21/2016 >60 >60- EGFR NON -PERUVIAN (mL/min) 08/21/2016 >60 >60- ANION GAP (mmol/L) [...] Mary MA - 08/21/2016 3:30 PM PDTA Tower Truck Driver was offered to the patient and declined. [...] | CEA-CARCINO | 8.2 | ng/mL | [facility] | | | EMBRYONIC | | | [...] + + | [facility] | And | [place] [address] | [phone] | | [facility] [place] [place] | [place] | | | + + + + [...] | | A MEDICAL | | | [facility] | | | CENTER | | + [...] | FASTING 8 | No | | [facility] | | | HOURS [place] | | | A MEDICAL | | | MORE? | | | CENTER | | + +---------+ + + + + + | Specimen | + + | Blood | + + + + + | Narrative | Performed At | + + + | GFR is estimated using the MDRD equation recommended by the | [facility] | | National Kidney Disease Education Program. Estimated GFR | [facility] | | Interpretive Information: <60 mL/min/1.73 [...] | + + + + + | [facility] | And | [place] [address] | [phone] | | MEDICAL CENTER | Streets | [...]
--- OUTSIDE RECORDS SUMMARY | ~2018-09-10 | XMS | Encounter Summary ---
Demographics + + + | Address | [address] | | | [place] [address] | + + + | Home Phone | | + + + | Preferred Language | Unknown | + + + | Marital Status | | + + + | Latter Day Affiliation | Unknown | + + + | Race | Unknown | + + + | Ethnic Group | Unknown | + + + Author + + + | Author | [facility] | + + + | Organization | [facility] | + + + | Address | Unknown | + + + | Phone | Unavailable | + + + Support + + + + + | Name | Relationship | Address | Phone | + + + + + | Ted Casas | ECON | [address] | | | | | [place] | | | | | [address] | | + + + + + | Jersey Marroquin | ECON | [place] | | | | | [address] | | + + + + + Care Team Providers + +------+ + | Care Wet Pour Supervisor Name | Role | Phone | + +------+ + | Joselin Jose PA-C | PCP | | + +------+ + Reason for Visit + + + | Reason | Comments | + + + | Referral | Returning call to schedule consult | + + + Encounter Details +--------+ + + + + | Date | Type | Department | Care Team | Description | +--------+ + + + + | 06/19/ | Telephone | [facility] | Wally Shell, | Referral (Returning | | 2019 | | [facility] | MD Brat [place] | call to schedule | | | | [address] | [address] [place], [place] | consult) | | | | [place], [place] | [address] | | | | | [address] | | | | | | [phone] | | | +--------+ + + + [...] | | | | | | [place] | | | | | | [address] | | | | | | | | +--------+---------+ + + + as of this encounter Visit Diagnoses Not on filein this encounter"
--- OUTSIDE RECORDS SUMMARY | ~2018-09-10 | XMS | Encounter Summary ---
Demographics + + + | Address | [address] | | | [place] [address] | + + + | Home Phone [...] + + + | Author | [facility] | + + + | Organization | [facility] | + + + | Address | Unknown | + + + | Phone | Unavailable | + + + Support + + + + + | Name | Relationship | Address | Phone | + + + + + | Ted Casas | ECON | [address] | | | | | [place] | | | | | [address] | | + + + + + | Carmen Renteria | ECON | [address] | | | | | [place] | | | | | [address] | | + + + + + | Vince Loredo | ECON | [place] | | + + + + + Care Team Providers + +------+ + | Care Crown Attacher Name | Role | Phone | + +------+ + | Adrián Gregory MD | PCP | | + +------+ + Encounter Details +--------+ + + + + | Date | Type | Department | Care Team | Description | +--------+ + + + + | 02/02/ | Results | [facility] | Erna Rainey, | | | 2014 | Only | Department | MD [address] | | | | | | [place] | | | | | | [address] | | | | | | [phone] | | | | | | | [...] | CBC W/DIFF, REFLEX | Routin | 02/02/2015 | | Results for this | | | e | 8:59 AM | | procedure are in the | | | | PDT | | results section. | + +--------+ + + + | CA 27-29, SERUM | Routin | 02/02/2015 | | Results for this | | | e | 8:59 AM | | procedure are in the | | | | PDT | | results section. | + +--------+ + + + | COMPLETE METABOLIC | Routin | 02/02/2015 | | Results for this | | SET | e | 8:59 AM | | procedure are in the | | (NA,K,CL,CO2,BUN,CRE | | PDT | | results section. | | AT,GLUC,CA,AST,ALT,B | | | | | | VINCE TOTAL,ALK | | | | | | PHOS,ALB,PROT TOTAL) | | | | | + +--------+ + + + documented in this encounter Results CA 27-29, SERUM (02/02/2015 8:59 AM PDT) + + + + + + | Component | Value | Ref Range | Performed | Pathologist | | | | | At | Signature | + + + + + + | CA 27-29 | <8Comment: Collected by | <38 U/mL | [facility] | | | | Care Unit: NComments to | | DIAGNOSTICS | | | | oil field rig builder: APPT 02/02 | | [facility] | | | | This test was performed | | | | | | using the | | | | | | SiemensChemiluminescent | | | | | | method. Values obtained [...] | | | | | | disease. Test performed | | | | | | at [facility] | | | | | | [facility] [address] | | | | | | [facility] | | | | | | [address], | | | | | | [place] [address] | | | | | | : KAVIN JEROME MD | | | | + + + + + + + + | Specimen | + + | | + + + + + | Narrative | Performed At | + + + | Collected by Care Unit: Wade Comments to oil field rig builder: MARY CARMEN 02/02 | [facility] | | | [facility] | | | [place] | + + + + + + + + | Performing | Address | City/State/Zipcode | Phone Number | | Organization | | | | + + + + + | [facility] | [address] | [place] [address] | [phone] | | [facility] [place] | | | | + + + + + COMPLETE METABOLIC SET (NA,K,CL,CO2,BUN,CREAT,GLUC,CA,AST,ALT,BILI TOTAL,ALK PHOS,ALB,PROT TOTAL) (02/02/2015 8:59 AM PDT) + + + + + + | Component | Value | Ref Range | Performed | Pathologist | | | | | At | Signature | + + + + + + | SODIUM, | 138Comment: Comments to | 137 - 146 | [facility] | | | PLASMA | oil field rig builder: APPT 02/02 | mmol/L | [facility] | | | (LAB) | | | LABORATORY | | + + + + + + | POTASSIUM, | 4.0Comment: Comments to | 3.5 - 5.2 | [facility] | | | PLASMA | oil field rig builder: APPT 02/02 | mmol/L | [facility] | | | (LAB) | | | LABORATORY | | + + + + + + | CO2 | 26Comment: Comments to | 20 - 27 mmol/L | [facility] | | | | oil field rig builder: APPT 02/02 | | [facility] | | | | | | LABORATORY | | + + + + + + | CHLORIDE, | 99Comment: Comments to | 96 - 106 mmol/L | [facility] | | | PLASMA | oil field rig builder: APPT 02/02 | | [facility] | | | (LAB) | | | LABORATORY | | + + + + + + | ANION GAP | 13Comment: Comments to | 12 - 20 MEQ/L | [facility] | | | | oil field rig builder: APPT 02/02 | | [facility] | | | | | | LABORATORY | | + + + + + + | GLUCOSE, | 206 (A)Comment: Comments | 70 - 105 mg/dL | [facility] | | | PLASMA | to oil field rig builder: APPT | | [facility] | | | (LAB) | 02/02 | | LABORATORY | | + + + + + + | BUN, PLASMA | 15Comment: Comments to | 6 - 26 mg/dL | [facility] | | | (LAB) | oil field rig builder: APPT 02/02 | | [facility] | | | | | | LABORATORY | | + + + + + + | CREATININE | 0.7Comment: Comments to | 0.6 - 1.1 mg/dL | [facility] | | | PLASMA | oil field rig builder: APPT 02/02 | | [facility] | | | (LAB) | | | LABORATORY | | + + + + + + | BUN/CREATIN | 21 (A)Comment: Comments | 6 - 20 RATIO | [facility] | | | INE RATIO | to oil field rig builder: APPT | | [facility] | | | | 02/02 | | LABORATORY | | + + + + + + | CALCIUM, | 9.8Comment: Comments to | 8.5 - 10.8 | [facility] | | | PLASMA | oil field rig builder: APPT 02/02 | mg/dL | [facility] | | | (LAB) | | | LABORATORY | | + + + + + + | AST(SGOT) | 23Comment: Comments to | 10 - 41 U/L | [facility] | | | | oil field rig builder: APPT 02/02 | | [facility] | | | | | | LABORATORY | | + + + + + + | ALT (SGPT) | 25Comment: Comments to | 7 - 51 U/L | [facility] | | | | oil field rig builder: APPT 02/02 | | [facility] | | | | | | LABORATORY | | + + + + + + | ALK PHOS | 74Comment: Comments to | 32 - 180 U/L | [facility] | | | | oil field rig builder: APPT 02/02 | | [facility] | | | | | | LABORATORY | | + + + + + + | TOTAL | 6.8Comment: Comments to | 5.8 - 8.5 g/dL | [facility] | | | PROTEIN, | oil field rig builder: APPT 02/02 | | [facility] | | | PLASMA | | | LABORATORY | | | (LAB) | | | | | + + + + + + | ALBUMIN, | 4.0Comment: Comments to | 3.5 - 5.0 g/dL | [facility] | | | PLASMA | oil field rig builder: APPT 02/02 | | [facility] | | | (LAB) | | | LABORATORY | | + + + + + + | BILIRUBIN | 0.2Comment: Comments to | 0.2 - 1.2 mg/dL | [facility] | | | TOTAL | oil field rig builder: APPT 02/02 | | [facility] | | | | | | LABORATORY | | + + + + + + | ESTIMATED | >60.0Comment: Comments | >60 | [facility] | | | GFR | to oil field rig builder: APPT | | [facility] | | | | 02/02 | | LABORATORY | | + + + + + + | FASTING? | UNKComment: Collected by | HR | [facility] | | | | Care Unit: NComments to | | [facility] | | | | oil field rig builder: APPT | | LABORATORY | | | | 1021 | | | | | | | | | | + + + + + + + + | Specimen | + + | | + + + + + | Narrative | Performed At | + + + | Collected by Care Unit: N Comments to oil field rig builder: MARY CARMEN 02/02 | [facility] | | | LABORATORY | + + + + +---------+ + + | Performing | Address | City/State/Zipcode | Phone Number | | Organization | | | | + +---------+ + + | [facility] | | | | | LABORATORY | | | | + +---------+ + + CBC W/DIFF, REFLEX (02/02/2015 8:59 AM PDT) + + + + + + | Component | Value | Ref Range | Performed | Pathologist | | | | | At | Signature | + + + + + + | WHITE BLOOD | 5.1Comment: Comments to | 3.2 - 11.0 X10 | [facility] | | | CELL COUNT | oil field rig builder: APPT 10/21 | 3/uL | [facility] | | | | | | LABORATORY | | + + + + + + | HEMOGLOBIN | 13.2Comment: Comments to | 12.0 - 16.0 | [facility] | | | | oil field rig builder: APPT | g/dL | [facility] | | | | 10/21 | | LABORATORY | | + + + + + + | RED BLOOD | 4.45Comment: Comments to | 3.5 - 5.0 X10 | [facility] | | | CELL COUNT | oil field rig builder: APPT | 6/uL | [facility] | | | | 10/21 | | LABORATORY | | + + + + + + | HEMATOCRIT | 40.4Comment: Comments to | 37.0 - 45.0 % | [facility] | | | | oil field rig builder: APPT | | [facility] | | | | 10/21 | | LABORATORY | | + + + + + + | MCV | 90.8Comment: Comments to | 82 - 100 fL | [facility] | | | | oil field rig builder: APPT | | [facility] | | | | 10/21 | | LABORATORY | | + + + + + + | [facility] | 29.6Comment: Comments to | 28.0 - 35.0 pg | [facility] | | | | oil field rig builder: APPT | | [facility] | | | | 10/21 | | LABORATORY | | + + + + + + | [facility] | 32.7Comment: Comments to | 32 - 36 g/dL | [facility] | | | | oil field rig builder: APPT | | [facility] | | | | 10/21 | | LABORATORY | | + + + + + + | RDW | 13.3Comment: Comments to | 12 - 16 % | [facility] | | | | oil field rig builder: APPT | | [facility] | | | | / | | LABORATORY | | + + + + + + | PLATELET | 186Comment: Comments to | 140 - 350 X10 3 | [facility] | | | COUNT | oil field rig builder: APPT 02/02 | | [facility] | | | | | | LABORATORY | | + + + + + + | MPV | 7.0Comment: Comments to | 7.0 - 12.0 fL | [facility] | | | | oil field rig builder: APPT / | | [facility] | | | | | | LABORATORY | | + + + + + + | NEUTROPHIL | 45.2Comment: Comments to | 40 - 80 % | [facility] | | | % | oil field rig builder: APPT | | [facility] | | | | 10/ | | LABORATORY | | + + + + + + | NEUTROPHIL | 2.4Comment: Comments to | 1.3 - 8.8 x10 | [facility] | | | # | oil field rig builder: APPT 02/02 | 3/UL | [facility] | | | | | | LABORATORY | | + + + + + + | LYMPHOCYTE | 41.8Comment: Comments to | 15 - 45 % | [facility] | | | % | oil field rig builder: APPT | | [facility] | | | | 10/21 | | LABORATORY | | + + + + + + | LYMPHOCYTE | 2.1Comment: Comments to | 0.5 - 5.0 x10 | [facility] | | | # | oil field rig builder: APPT 02/02 | 3/UL | [facility] | | | | | | LABORATORY | | + + + + + + | EOS % | 2.3Comment: Comments to | 0 - 5.8 % | [facility] | | | | oil field rig builder: APPT 02/02 | | [facility] | | | | | | LABORATORY | | + + + + + + | EOS # | 0.1Comment: Comments to | 0.0 - 0.7 x10 | [facility] | | | | oil field rig builder: APPT 02/02 | 3/UL | [facility] | | | | | | LABORATORY | | + + + + + + | BASO % | 0.5Comment: Comments to | 0 - 1.8 % | [facility] | | | | oil field rig builder: APPT 02/02 | | [facility] | | | | | | LABORATORY | | + + + + + + | BASO # | 0.0Comment: Comments to | 0.0 - 0.2 x10 | [facility] | | | | oil field rig builder: APPT 02/02 | 3/UL | [facility] | | | | | | LABORATORY | | + + + + + + | MONOCYTE % | 10.2Comment: Comments to | 4.2 - 11.0 % | [facility] | | | | oil field rig builder: APPT | | [facility] | | | | 10/21 | | LABORATORY | | + + + + + + | MONOCYTE # | 0.5Comment: Collected by | 0.1 - 1.3 x10 | [facility] | | | | Care Unit: NComments to | 3/UL | [facility] | | | | oil field rig builder: APPT | | LABORATORY | | | | 10/21 | | | | | | | | | | + + + + + + + + | Specimen | + + | | + + + + + | Narrative | Performed At | + + + | Collected by Care Unit: Wade Comments to oil field rig builder: MARY CARMEN 02/02 | [facility] | | | LABORATORY | + + + + +---------+ + + | Performing | Address | City/State/Zipcode | Phone Number | | Organization | | | | + +---------+ + + | [facility] | | | | | LABORATORY | | | | + +---------+ + + documented in this encounter Visit Diagnoses Not on filedocumented in this encounter"
--- OUTSIDE RECORDS SUMMARY | ~2018-09-10 | XMS | Encounter Summary ---
Demographics + + + | Address | [address] | | | [place] [address] | + + + | Home Phone | | + + + | Preferred Language | Unknown | + + + | Marital Status | | + + + | Mormonism Affiliation | NON | + + + | Race | White | + + + | Ethnic Group | Not or | + + + Author + + + | Author | [facility] | + + + | Organization | [facility] | + + + | Address | Unknown | + + + | Phone | Unavailable | + + + Support + + + + + | Name | Relationship | Address | Phone | + + + + + | Ted Casas | ECON | [address] | | | | | [place] | | | | | [address] | | + + + + + | Carmen Renteria | ECON | [address] | | | | | [place] | | | | | [phone] | | + + + + + | Vince Loredo | ECON | [place] | | + + + + + Care Team Providers + +------+ + | Care Tie Presser Name | Role | Phone | + [...] E | | | | | | [place] | | | | | | [place] | | | | | | [phone] | | | | | | [phone] | | | +--------+--------+ + + + [...]
--- OUTSIDE RECORDS SUMMARY | ~2018-09-10 | XMS | Encounter Summary ---
Demographics + + + | Address | [address] | | | [place] [address] | + + + | Home Phone | | + + + | Preferred Language | Unknown | + + + | Marital Status | | + + + | Church Affiliation | Unknown | + + + | Race | Unknown | + + + | Ethnic Group | Unknown | + + + Author + + + | Author | [facility] | + + + | Organization | [facility] | + + + | Address | Unknown | + + + | Phone | Unavailable | + + + Support + + + + + | Name | Relationship | Address | Phone | + + + + + | Ted Casas | ECON | [address] | | | | | [place] | | | | | [address] | | + + + + + | Jersey Marroquin | ECON | [place] | | | | | [address] | | + + + + + Care Team Providers + +------+ + | Care Meteorological Equipment Repairer Name | Role | Phone | [...] 2019 | | [facility] | MD Bart Sheridan | call to schedule | | | | [address] | [address] [place], [place] | consult) | | | | [place], [place] | [address] | | | | | [address] | | | | | | [phone] | | | +--------+ + + + [...] | | | | | | [place] | | | | | | [address] | | | | | | | | +--------+---------+ + + + as of this encounter Visit Diagnoses Not on filein this encounter"
--- OUTSIDE RECORDS SUMMARY | ~2018-09-10 | XMS | Encounter Summary ---
Demographics + + + | Address | [address] | | | [place] [address] | + + + | Home Phone | | + + + | Preferred Language | Unknown | + + + | Marital Status | | + + + | Denominational Affiliation | NON | + + + | Race | White | + + + | Ethnic Group | Not or | + + + Author + + + | Author | [facility] | + + + | Organization | [facility] | + + + | Address | Unknown | + + + | Phone | Unavailable | + + + Support + + + + + | Name | Relationship | Address | Phone | + + + + + | Ted Casas | ECON | [address] | | | | | [place] | | | | | [address] | | + + + + + | Carmen Renteria | ECON | [address] | | | | | [place] | | | | | [address] | | + + + + + | Vince Loredo | ECON | [place] | | + + + + + Care Team Providers + +------+ + | Care Mutuel Cashier Name | Role | Phone | + [...] E | | | | | | [place] | | | | | | [place] | | | | | | [address] | | | | | | [phone] | | | +--------+--------+ + + + [...]
--- OUTSIDE RECORDS SUMMARY | ~2018-09-10 | XMS | Clinical Summary ---
Demographics + + + | Address | [address] | | | [place] [address] | + + + | Home Phone | | + + + | Preferred Language | Unknown | + + + | Marital Status | | + + + | Hinduism Affiliation | Unknown | + + + | Race | Unknown | + + + | Ethnic Group | Unknown | + + + Author + + + | Author | [facility] | + + + | Organization | [facility] | + + + | Address | Unknown | + + + | Phone | Unavailable | + + + Support + + + + + | Name | Relationship | Address | Phone | + + + + + | Ted Patterson | ECON | [address] | | | | | [place] | | | | | [address] | | + + + + + | Jersey Marroquin | ECON | [place] | | | | | [address] | | + + + + + Care Team Providers + +------+ + | Care Assembler Fitter Name | Role | Phone | + +------+ + | Joselin oJse PA-C | PP | | + +------+ [...] | | | | | | [place], [place] | | | | | | [address] | | | | | | | [...] | + + + + + | [facility] | [address] | [place] [address] | | + + + + + [...] +------+-------+ + | MEDICARE | MEDICA | [id number] | | | [address] | | | RE | | | | [place], [place] [address] | | | YOBANY | | | | | | | AD | | | | | + +--------+ +------+-------+ + | COMMERCIAL OTHER | COMMER | [id number] | | | | | | CIAL [...] | Self | [birth year] Home: | [address] | | | al/Partha | | [phone] | [phone] | [place] | | | jitendra | | | [phone] | [address] | + +--------+ +--------+ + +
--- OUTSIDE RECORDS SUMMARY | ~2018-09-10 | XMS | Encounter Summary ---
Demographics + + + | Address | [address] | | | [place] [address] | + + + | Home Phone | | + + + | Preferred Language | Unknown | + + + | Marital Status | | + + + | Scientologist Affiliation | NON | + + + | Race | White | + + + | Ethnic Group | Not or | + + + Author + + + | Author | [facility] | + + + | Organization | [facility] | + + + | Address | Unknown | + + + | Phone | Unavailable | + + + Support + + + + + | Name | Relationship | Address | Phone | + + + + + | Ted Casas | ECON | [address] | | | | | [place] | | | | | [address] | | + + + + + | Carmen Renteria | ECON | [address] | | | | | [place] | | | | | [address] | | + + + + + | Vince Loredo | ECON | [place] | | + + + + + Care Team Providers + +------+ + | Care Steam Table Associate Name | Role | Phone | [...] | | | | Mail Code: | [place], [place] | | | | | | [address] Center | [address] | | | | | | for Health | Phone: | | | | | | and Healing, | [phone] | | | | | | 5th Floor | Fax: | | | | | | [place], [place] | [phone] | | | | | | [address] | | | | | | | Phone: | | | | | | | [phone] | | +--------+--------+ + + + + Encounter Details +--------+---------+ + + + | Date | Type | Department | Care Team | Description | +--------+---------+ + + + | 08/02/ | Office | Plastic and | Jelena Carias, | S/P breast | | 2010 | Visit | Reconstructive | [address] | reconstruction | | | | Surgery at [facility] [address] | [place], [place] | (Primary Dx) | | | | [address] | [address] | | | | | Code: [facility] Center | [phone] | | | | | for Health and | | | | | | [facility], [address] [place] [address] | | | | | | [place], [place] | | | | | | [address] | | | | | | [phone] | | | +--------+---------+ + + + [...]
--- OUTSIDE RECORDS SUMMARY | ~2018-09-10 | XMS | Encounter Summary ---
Demographics + + + | Address | [address] | | | [place] [address] | + + + | Home Phone [...] + | Ted Casas | ECON | [address] | | | | | [place] | | | | | [address] | | + + + + + | Carmen Renteria | ECON | [address] | | | | | [place] | | | | | [address] | | + + + + + | Vince Loredo | ECON | [place] | | + + + + + Care Team Providers + +------+ + | Care Sanitation Supervisor Name | Role | Phone | [...] [place], [place] | | | | | [place] | [address] | | | | | [place], [place] | [phone] | | | | | [address] | | | | | | [phone] | | | +--------+--------+ + + + [...]
--- OUTSIDE RECORDS SUMMARY | ~2018-09-10 | XMS | Encounter Summary ---
Demographics + + + | Address | [address] | | | [place] [address] | + + + | Home Phone | | + + + | Preferred Language | Unknown | + + + | Marital Status | | + + + | Sabianist Affiliation | NON | + + + | Race | White | + + + | Ethnic Group | Not or | + + + Author + + + | Author | [facility] | + + + | Organization | [facility] | + + + | Address | Unknown | + + + | Phone | Unavailable | + + + Support + + + + + | Name | Relationship | Address | Phone | + + + + + | Ted Casas | ECON | [address] | | | | | [place] | | | | | [address] | | + + + + + | Carmen Renteria | ECON | [address] | | | | | [place] | | | | | [address] | | + + + + + | Vince Loredo | ECON | [place] | | + + + + + Care Team Providers + +------+ + | Care Act English Tutor Name | Role | Phone | + [...] breast in female, | | | | [address] | | estrogen receptor | | | | [phone] | | positive (HCC) | +--------+------+ + [...] | 0.10 | 0.00 - 0.10 | [facility] | | | | | [...] | + + + + + | [facility] | And | [place] [address] | [phone] | | MEDICAL CENTER | Streets | [...] | + + + + + | [facility] | And | [place] [address] | [phone] | | [facility] | [place] | | | + + + + [...] | | A MEDICAL | | | [facility] | | | CENTER | | + [...] | FASTING 8 | No | | [facility] | | | HOURS [place] | | | A MEDICAL | | | MORE? | | | CENTER | | + +---------+ + + + + + | Specimen | + + | Blood | + + + + + | Narrative | Performed At | + + + | GFR is estimated using the MDRD equation recommended by the | [facility] | | National Kidney Disease Education Program. 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
--- OUTSIDE RECORDS SUMMARY | ~2018-09-10 | XMS | Encounter Summary ---
Demographics + + + | Address | [address] | | | [place] [address] | + + + | Home Phone | | + + + | Preferred Language | Unknown | + + + | Marital Status | | + + + | Spiritism Affiliation | NON | + + + | Race | White | + + + | Ethnic Group | Not or | + + + Author + + + | Author | [facility] | + + + | Organization | [facility] | + + + | Address | Unknown | + + + | Phone | Unavailable | + + + Support + + + + + | Name | Relationship | Address | Phone | + + + + + | Ted aCsas | ECON | [address] | | | | | [place] | | | | | [address] | | + + + + + | Carmen Renteria | ECON | [address] | | | | | [place] | | | | | [address] | | + + + + + | Vince Loredo | ECON | [place] | | + + + + + Care Team Providers + +------+ + | Care Newspaper Editor Managing Name | Role | Phone | + +------+ + | Adrián Gregory MD | PCP | | + +------+ + Encounter Details +--------+ + + + + | Date | Type | Department | Care Team | Description | +--------+ + + + + | 01/09/ | Results | [facility] | Erna Rainey, | | | 2010 | Only | Department | MD [address] | | | | | | [place] | | | | | | [address] | | | | | | [phone] | | | | | | | [...] | CBC W/DIFF, REFLEX | Routin | 01/09/2011 | | Results for this | | | e | 8:19 AM | | procedure are in the | | | | PDT | | results section. | + +--------+ + + + | COMPLETE METABOLIC | Routin | 01/09/2011 | | Results for this | | SET | e | 8:19 AM | | procedure are in the | | (NA,K,CL,CO2,BUN,CRE | | PDT | | results section. | | AT,GLUC,CA,AST,ALT,B | | | | | | VINCE TOTAL,ALK | | | | | | PHOS,ALB,PROT TOTAL) | | | | | + +--------+ + + + documented in this encounter Results CBC W/DIFF, REFLEX (01/09/2011 8:19 AM PDT) + + + + + + | Component | Value | Ref Range | Performed | Pathologist | | | | | At | Signature | + + + + + + | WHITE BLOOD | 4.6 | 4.3 - 11.0 X10 | [facility] [...] + + + | RED BLOOD | 4.27 | 4.2 - 5.4 X10 | [facility] | | | CELL COUNT | | 6/uL | A MEDICAL | | | | | | CENTER | | + + + + + + | HEMATOCRIT | 35.4 (L) | 38.0 - 47.0 % | [...] | MCH | 28.5 | 28.0 - 32.0 pg | [facility] | | | | | | A MEDICAL | | | | | | CENTER | | + + + + + + | MCHC | 34.4 | 32 - 36 g/dL | [facility] | | | | | | A MEDICAL | | | | | | CENTER | | + + + + + + | RDW | 13.3 | 12 - 15 fL | [facility] | | | | | | A MEDICAL | | | | | | CENTER | | + + + + + + | PLATELET | 167 | 150 - 450 X10 3 | [facility] | | | COUNT | | | A MEDICAL | | | | | | CENTER | | + + + + + + | MPV | 7.3 (L) | 9.0 - 12.0 fL | [facility] | | | | | | A MEDICAL | | | | | | CENTER | | + + + + + + | NEUTROPHIL | 48.0 | 40 - 80 % | [facility] | | | % | | | A MEDICAL | | | | | | CENTER | | + + + + + + | NEUTROPHIL | 2.2 | 1.9 - 8.0 x10 | [facility] | | | # | | 3/UL | A MEDICAL | | | | | | CENTER | | + + + + + + | LYMPHOCYTE | 40.3 | 20 - 50 % | [facility] | | | % | | | A MEDICAL | | | | | | CENTER | | + + + + + + | LYMPHOCYTE | 1.8 | 0 - 6 x10 3/UL | [facility] | | | # | | | A MEDICAL | | | | | | CENTER | | + + + + + + | EOS % | 3.5 | 0 - 5 % | [facility] [...] + + + | MONOCYTE % | 7.7 | 2 - 10 % | [facility] [...] + + + | BANDS % | STONE AND PLATE PREPARER APPRENTICE | 0 - 7 % | [facility] | | | | | | A MEDICAL | | | | | | CENTER | | + + + + + + | BANDS # | STONE AND PLATE PREPARER APPRENTICE | 0.00 - 0.70 x10 | [facility] [...] | + + + + + | [facility] | And | [place] [address] | | | [facility] | [facility] | | | + + + + + COMPLETE METABOLIC SET (NA,K,CL,CO2,BUN,CREAT,GLUC,CA,AST,ALT,BILI TOTAL,ALK PHOS,ALB,PROT TOTAL) (01/09/2011 8:19 AM PDT) + + + + + + | Component | Value | Ref Range | Performed | Pathologist | | | | | At | Signature | + + + + + + | SODIUM, | 142 | 137 - 146 MEQ/L | [facility] | | | PLASMA | | | A MEDICAL | | | (LAB) | | | CENTER | | + + + + + + | POTASSIUM, | 3.9 | 3.5 - 5.2 MEQ/L | [facility] | | | PLASMA | | | A MEDICAL | | | (LAB) | | | CENTER | | + + + + + + | CO2 | 27 | 22 - 28 MEQ/L | [facility] | | | | | | A MEDICAL | | | | | | CENTER | | + + + + + + | CHLORIDE, | 109 (H) | 98 - 106 MEQ/L | [facility] | | | PLASMA | | | A MEDICAL | | | (LAB) | | | CENTER | | + + + + + + | ANION GAP | 9.9 | 8 - 16 MEQ/L | [facility] | | | | | | A MEDICAL | | | | | | CENTER | | + + + + + + | GLUCOSE, | 211 (H) | 70 - 105 MG/DL | [facility] | | | PLASMA | | | A MEDICAL | | | (LAB) | | | CENTER | | + + + + + + | BUN, PLASMA | 17 | 8 - 30 MG/DL | [facility] | | | (LAB) | | | A MEDICAL | | | | | | CENTER | | + + + + + + | CREATININE | 0.47 (L) | 0.6 - 1.1 MG/DL | [facility] | | | PLASMA | | | A MEDICAL | | | (LAB) | | | CENTER | | + + + + + + | BUN/CREATIN | 36 (H) | 6 - 20 RATIO | [facility] | | | INE RATIO | | | A MEDICAL | | | | | | CENTER | | + + + + + + | CALCIUM, | 9.2 | 8.5 - 10.8 | [facility] | [...] + + + + | TOTAL | 6.7 | 6.7 - 8.5 G/DL | [facility] | | | PROTEIN, | | | A MEDICAL | | | PLASMA | | | CENTER | | | (LAB) | | | | | + + + + + + | ALBUMIN, | 3.9 | 3.5 - 5.0 G/DL | [facility] | | | PLASMA | | | A MEDICAL | | | (LAB) | | | CENTER | | + + + + + + | BILIRUBIN | 0.8 | 0.2 - 1.6 MG/DL | [facility] | | | TOTAL | | | A MEDICAL | | | | | | CENTER | | + + + + + + | ESTIMATED | 144.7 | >60 | [facility] | | | [...] | + + + + + | [facility] | And | [place] [address] | | | MEDICAL CENTER | Streets | | | + + + + + documented in this encounter Visit Diagnoses Not on filedocumented in this encounter"
--- OUTSIDE RECORDS SUMMARY | ~2018-09-10 | XMS | Encounter Summary ---
Demographics + + + | Address | [address] | | | [place] [address] | + + + | Home Phone | | + + + | Preferred Language | Unknown | + + + | Marital Status | | + + + | Christianity Affiliation | NON | + + + [...] + | Ted Casas | ECON | [address] | | | | | [place] | | | | | [address] | | + + + + + | Carmen Renteria | ECON | [address] | | | | | [place] | | | | | [address] | | + + + + + | Vince Loredo | ECON | [place] | | + + + + + Care Team Providers + +------+ + | Care Greenkeeper Name | Role | Phone | + +------+ + | Adrián Gregory MD | PCP | | + +------+ + Reason for Visit + + + | Reason | Comments | + + + | History and physical | R breast recon and R NAC | | examination | | + + + | Pre-op evaluation | | + + + Consultation (Routine) +--------+--------+ + + + + | Status | Reason | Specialty | Diagnoses / | Referred By | Referred To | | | | | Procedures | Contact | Contact | +--------+--------+ + + + + | Closed | | Plastic | Diagnoses | Jv | Vanessa | | | | Surgery | Acquired | MD Jelena | TRISHA Zavaleta | | | | | absence of | [address] | [address] | | | | | breast and | [address] | [place] | | | | | nipple | [place] | [place], | | | | | | [address] | [place] | | | | | | Phone: | [phone] | | | | | | [phone] | | | | | | | Fax: | | | | | | | [phone] | | +--------+--------+ + + + + Encounter Details +--------+---------+ + + + | Date | Type | Department | Care Team | Description | +--------+---------+ + + + | 09/03/ | Office | Plastic and | Rebekah Mendez PA | Acquired Absence of | | 2008 | Visit | Reconstructive | | Breast (Primary Dx); | | | | Surgery at [facility] [address] | | Other Specified | | | | [address] | | Pre-Operative | | | | Code: [facility] Center | | Examination | | | | for Health and | | | | | | Healing, 5th Floor | | | | | | [place], [place] | | | | | | [address] | | | | | | [phone] | | | +--------+---------+ + + + [...] | Blood Pressure | 100/61 | 09/03/2008 1:33 PM | | | | | PDT | | + + + + + | Pulse | 83 | 09/03/2008 1:33 PM | | | | | PDT | | + + + + + | Temperature | - | - | | + + + + + | Respiratory Rate | 16 | 09/03/2008 1:33 PM | | | | | PDT | | + + + + + | Oxygen Saturation | 96% | 09/03/2008 1:33 PM | | | | | PDT | | + + + + + | Inhaled Oxygen | - | - | | | Concentration | | | | + + + + + | Weight | 74.8 kg (165 lb) | 09/03/2008 1:33 PM | | | | | PDT | | + + + + + | Height | 158.8 cm (5' 2.5") | 09/03/2008 1:33 PM | | | | | PDT | | + + + + + | Body Mass Index | 29.7 | 09/03/2008 1:33 PM | | | | | PDT | | + + + + + documented in this encounter Patient Instructions Patient Instructions Rebekah Mendez PA - 09/03/2008 1:44 PM PDTRegistration Locations (pl ease check in at one of the following registration desks prior to surgery) For surgeries scheduled [place] at the [facility]: Surgeries scheduled in the [facility] ( [facility]): registration is located on the 4th floor of [facility] (Day Surgery). Surgeries scheduled in the [facility]: registration is located on the 9th floor. Surgeries scheduled in [facility]: registration is located on the 6th floor. Surgeries scheduled in the [facility]: registration is located i n the [facility] on the first floor. For surgeries scheduled to take place at the [facility]: registration is l ocated [...] If you use specialized medical equipment at [facility], please check with your provider before [...] Safety, Understanding Advance Directives, and Smoking Cessation Brochure.Elec tronically signed by TRISHA Cortes at 09/03/2008 1:44 PM PDT documented in this encounter Progress Notes Rebekah Mendez PA - 09/03/2008 1:44 PM PDT Pre-Procedure History and Physical Date of Admission: 09-21-08 HISTORY: Acquired absence of breast CURRENT PROBLEM LIST: Patient Active Problem List Diagnoses Date Noted Acquired Absence of Breast [V45.71T] 05/07/2008 Past Medical History Diagnosis Date Peripheral Vascular Disease Hypertension Dyslipidemia Breast Cancer GERD (Gastroesophageal Reflux Disease) Past Surgical History Procedure Date Hx mastectomy Angioplasty, renal, bilateral Hx hysterectomy MEDICATIONS: Current outpatient prescriptions Medication Sig Dispense Refill ARIMIDEX 1 mg Oral Tablet take 1 tablet (1 mg) by oral route once daily aspirin 325 mg Oral Tablet Take 1 Tab by mouth once daily. 30 0 CALCIUM + D 600 (1,500)-200 mg-unit Oral Tablet 1 tab p.o. twice daily cyclobenzaprine 5 mg Oral Tablet Take 5 mg by mouth three times daily as needed Do not use longer than 2-3 weeks. DIOVAN ORAL 1 tab p.o. qd FLEXERIL 5 mg Oral Tablet take 1 tablet (5 mg) by oral route 3 times per day Fluoxetine HCl 20 mg Oral Tablet Take 20 mg by mouth once daily. gabapentin 300 mg Oral Capsule take 1 capsule (300 mg) by oral route 3 times per day metoprolol tartrate 12.5 mg Oral Tablet Take 2 Each by mouth two times daily. 60 1 MULTI-VITAMIN Oral Tablet take 1 tablet by oral route once daily with food NEXIUM 40 mg Oral Capsule, Delayed Release(E.C.) Take 40 mg by mouth once daily in the morning. oxycodone-acetaminophen (PERCOCET) 5-325 mg Oral Tablet Take 1 Tab by mouth once daily at bedtime as needed Not to exceed 12 tablets per any 24 hour period. 40 0 potassium chloride SR 20 mEq Oral Tab Sust.Rel. Particle/Crystal take 1 tablet (20 meq) by oral route once daily with food senna-docusate 8.6-50 mg Oral Tablet Take 1 Tab by mouth two times daily. While on pain meds. Hold for loose stools. 60 0 spironolactone 25 mg Oral Tablet take 1 tablet (25 mg) by oral route once daily TRICOR 145 mg Oral Tablet take 1 tablet (145 mg) by oral route once daily TYLENOL PM ORAL 2 tab p.o. qhs. VITAMIN D ORAL 1 tab p.o. twice daily Allergies Allergen Reactions Sulfa (Sulfonamides) Hives Penicillin G Hives Tylenol-codeine #3 (Acetaminophen-codeine) Itching Vicodin (Hydrocodone-acetaminophen) Nausea/Vomiting Cephalexin Itching FAMILY HISTORY: No family history on file. REVIEW OF SYSTEMS: denies fever ,c hills, N&V,CP,SOB,dysuria. Has HTN controlled with meds PHYSICAL EXAM: VITALS: Visit Vitals Item Reading BP 100/61 Pulse 83 Resp 16 Ht 1.588 m (5' 2.5") Wt 74.844 kg (165 lb) SpO2 96% HEENT: Normal NECK: See Notes: supple, no LAD CHEST/LUNGS: See Notes: CTA bilat, BS equal HEART: See Notes: RRR Breast: Right tram flap well perfused, wounds well healed. No erythema. ABDOMEN: See Notes: soft, NT,ND. TRAM incision nicely healed. There remains a small approx 1/2 cm opening midincision which has a very small amount of serrous drainage. No surrounding erythema, warmth. No palpable fluid collections. BACK: Normal EXTREMITIES: Normal NEUROLOGICAL: Normal G.U.: See Notes: deferred PROVISIONAL DIAGNOSIS: acquired absence of breast PLANNED COURSE OF ACTION: Procedure to be performed: revision right breast reconstruction a nd right NAC reconstruction PARQ: A PARQ session was held, written consent to be done DOS documented in this encounter Plan of Treatment Not on filedocumented as of this encounter Visit Diagnoses + + | Diagnosis | + + | Acquired absence of breast - Primary Acquired absence of breast and nipple | + + | Other specified pre-operative examination | + + documented in this encounter
--- OUTSIDE RECORDS SUMMARY | ~2018-09-10 | XMS | Encounter Summary ---
Demographics + + + | Address | [address] | | | [place] [address] | + + + | Home Phone | | + + + | Preferred Language | Unknown | + + + | Marital Status | | + + + | Temple Affiliation | NON | + + + | Race | White | + + + | Ethnic Group | Not or | + + + Author + + + | Author | [facility] | + + + | Organization | [facility] | + + + | Address | Unknown | + + + | Phone | Unavailable | + + + Support + + + + + | Name | Relationship | Address | Phone | + + + + + | Ted Casas | ECON | [address] | | | | | [place] | | | | | [address] | | + + + + + | Carmen Renteria | ECON | [address] | | | | | [place] | | | | | [address] | | + + + + + | Vince Loredo | ECON | [place] | | + + + + + Care Team Providers + +------+ + | Care Director Workers Compensation Name | Role | Phone | + +------+ + | Adrián Gregory MD | PCP | | + +------+ + Encounter Details +--------+ + + + + | Date | Type | Department | Care Team | Description | +--------+ + + + + | 07/05/ | Results | [facility] | Erna Rainey, | | | 2010 | Only | Department | MD [address] | | | | | | [facility] [place] | | | | | | [address] | | | | | | [phone] | | | | | | | [...] + +--------+ + + + | BONE SCAN [id number] | Routin | 07/05/2010 | | Results for this | | | e | 10:32 AM | | procedure are in the | | | | PDT | | results section. | + +--------+ + + + documented in this encounter Results BONE SCAN [id number] (07/05/2010 10:32 AM PDT) + + | Specimen | + + | | + + + + + | Narrative | Performed At | + + + | EXAM: BONE SCAN HISTORY: Breast carcinoma COMPARISON: None | [facility] | | FINDINGS: Following administration of 24 mCi of technetium 99m MDP, | DEPARTMENT OF | | images of the entire skeleton were obtained in anterior and posterior | RADIOLOGY | | projections. No evidence of metastatic disease to the bones is | | | seen. Slight increased activity is noted in the left lower lumbar | | | spine and a few joints most likely degenerative disease. Bilateral | | | renal activity is present. IMPRESSION: No evidence of metastatic | | | disease is seen. | | + + + + + | Procedure Note | + + | Interface, Radiology Results - 11/26/2014 12:05 PM PDT EXAM: BONE SCAN | | HISTORY: Breast carcinoma | | COMPARISON: None | | FINDINGS: Following administration of 24 mCi of technetium 99m MDP, | | images of the entire skeleton were obtained in anterior and posterior | | projections. No evidence of metastatic disease to the bones is seen. | | Slight increased activity is noted in the left lower lumbar spine | | and a few joints most likely degenerative disease. Bilateral renal | | activity is present. | | IMPRESSION: No evidence of metastatic disease is seen. | + + + +---------+ + + [...]
--- OUTSIDE RECORDS SUMMARY | ~2018-09-10 | XMS | Encounter Summary ---
Demographics + + + | Address | [address] | | | [place] [address] | + + + | Home Phone [...] + | Ted Casas | ECON | [address] | | | | | [place] | | | | | [address] | | + + + + + | Carmen Renteria | ECON | [address] | | | | | [place] | | | | | [address] | | + + + + + | Vince Loredo | ECON | [place] | | + + + + + Care Team Providers + +------+ + | Care Cuff Maker Name | Role | Phone | [...] | | | | Street The | [address] | | | | | [place] | [phone] | | | | | [address] | | | | | | [phone] | | | +--------+ + + + [...]
--- OUTSIDE RECORDS SUMMARY | ~2018-09-10 | XMS | Encounter Summary ---
Demographics + + + | Address | [address] | | | [place] [address] | + + + | Home Phone [...] + | Ted Casas | ECON | [address] | | | | | [place] | | | | | [address] | | + + + + + | Carmen Renteria | ECON | [address] | | | | | [place] | | | | | [address] | | + + + + + | Vince Loredo | ECON | [place] | | + + + + + Care Team Providers + +------+ + | Care Shipping Receiving Manager Name | Role | Phone | [...] Refill | [facility] | [place] Mota GASOLINE TRUCK OPERATOR | Refill Request | | 2017 | | [place] [facility] | [address] | | | | | Oncology [address] | [facility] [place] [address] | | | | | [place] | [phone] | | | | | [place], [place] | | | | | | [address] | | | | | | [phone] | | | +--------+--------+ + + + [...]
--- OUTSIDE RECORDS SUMMARY | ~2018-09-10 | XMS | Encounter Summary ---
Demographics + + + | Address | [address] | | | [place] [address] | + + + | Home Phone | | + + + | Preferred Language | Unknown | + + + | Marital Status | | + + + | Worship Affiliation | NON | + + + [...] + | Ted Casas | ECON | [address] | | | | | [place] | | | | | [address] | | + + + + + | Carmen Renteria | ECON | [address] | | | | | [place] | | | | | [address] | | + + + + + | Vince Loredo | ECON | [place] | | + + + + + Care Team Providers + +------+ + | Care High Voltage Electrician Name | Role | Phone | + [...] Tomasz | | | | | at [facility] | [facility] | | | | | [address] | [place] [address] | | | | | [facility] | | | | | | Mailcode: [id number] [facility] | | | | | | [facility] | | | | | | [facility], | | | | | | [place] [address] | | | | | | [phone] | | | +--------+ + + + [...]
--- OUTSIDE RECORDS SUMMARY | ~2018-09-10 | XMS | Encounter Summary ---
Demographics + + + | Address | [address] | | | [place] [address] | + + + | Home Phone [...] + | Ted Casas | ECON | [address] | | | | | [place] | | | | | [address] | | + + + + + | Carmen Renteria | ECON | [address] | | | | | [place] | | | | | [address] | | + + + + + | Vince Loredo | ECON | [place] | | + + + + + Care Team Providers + +------+ + | Care Associate Music Professor Name | Role | Phone | + [...] female breast (HCC) | | | | [address] | | (Primary Dx) | | | | [phone] | | | +--------+------+ + + + [...]
--- OUTSIDE RECORDS SUMMARY | ~2018-09-10 | XMS | Encounter Summary ---
Demographics + + + | Address | [address] | | | [place] [address] | + + + | Home Phone | | + + + | Preferred Language | Unknown | + + + | Marital Status | | + + + | Judaism Affiliation | NON | + + + [...] + | Ted Patterson | ECON | [address] | | | | | [place] | | | | | [address] | | + + + + + | Carmen Renteria | ECON | [address] | | | | | [place] | | | | | [address] | | + + + + + | Vince Loredo | ECON | [place] | | + + + + + Care Team Providers + +------+ + | Care Head Operator Name | Role | Phone | + +------+ + | Dominick Clark | PCP | | + +------+ + Reason for Visit Diagnostic Testing (Routine) +--------+--------+ + + + [...] | | | | right female | Critical access hospital | [facility] | | | | | breast, | [place], [place] | [place], | | | | | unspecified | [address] | [place] [address] | | | | | site of | Phone: | | | | | | breast | [phone] | | | | | | Procedures | Fax: | | | | | | PET CT SKULL | [phone] | | | | | | BASE TO | | | | | | | MID-THIGHS | | | +--------+--------+ + + + + Encounter Details +--------+ + + + + | Date | Type | Department | Care Team | Description | +--------+ + + + + | 07/04/ | Hospital | PET CT at Patient | Marisol Alberto, | | | 2017 | Encounter | [facility] [address] | MD [address] | | | | | [address] [facility] | [facility], [place] | | | | | [facility] | [address] | | | | | [place], [place] | [phone] | | | | | [address] | | | +--------+ + + + [...] | + + + | [address] [place] [address] | [facility] | | [place], [place] [address] | DEPARTMENT OF | | [phone] | RADIOLOGY | | Name: PERRY PATTERSON Phys: MARISOL ALBERTO | | | : 1950 Sex: F CSN: | | | [id number] MR# [id number] Exam Date: | | | 07/04/2016 EXAM: [...] Transcribed Date/Time: 07/05/2016 01:05 | | | Mobile Designer: FLUENCY | | + + + + + | Procedure Note | + + | Interface, Radiology Results - 07/05/2016 1:09 AM PDT [address] | | [place] [address] | | Name: PERRY PATTERSON ANN Phys: REMYMARISOL S : 1950 Sex: F | | CSN: [id number] MR# [id number] Exam Date: 07/04/2016 EXAM:PET-CT CLINICAL | | [...] | | |Transcribed Date/Time: 07/05/2016 01:05 | |Mobile Designer: GORDO | | | | | | [...]
--- OUTSIDE RECORDS SUMMARY | ~2018-09-10 | XMS | Encounter Summary ---
Demographics + + + | Address | [address] | | | [place] [address] | + + + | Home Phone [...] + | Ted Patterson | ECON | [address] | | | | | [place] | | | | | [address] | | + + + + + | Carmen Renteria | ECON | [address] | | | | | [place] | | | | | [address] | | + + + + + | Vince Loredo | ECON | [place] | | + + + + + Care Team Providers + +------+ + | Care Telecommunications Project Manager Name | Role | Phone | + +------+ + | Adrián Gregory MD | PCP | | + +------+ + Encounter Details +--------+ + + + + | Date | Type | Department | Care Team | Description | +--------+ + + + + | 11/26/ | Office | [facility] [address] | Erna Rainey, | Progress Note | | 2007 | Visit-Trans | [address] | MD [address] | | | | [address] | [place] | [place] | | | | | [address] | [address] | | | | | | [phone] | | | | | | | [...] this encounter Progress Notes Jakob Rainey - 11/27/2007 6:51 AM PDT [facility] [address] [place] [address] LEONARDO,ROMAN Cardenas DATE OF SERVICE: November 27, 2007 DIAGNOSIS: Stage I (T1B, N0, M0) breast cancer. INTERVAL HISTORY: This is a 4-month follow-up visit. The patient has stage I breast cancer, on Arimidex as adjuvant hormonal therapy. She has arthralgia, quite significant, due to Arimidex. She has to take Percocet for pain. In addition, she recently developed some leg cramps. She used a product containing quinine which caused some rash. Her hot flashes were not reduced with Effexor. She still is wet most of the day because of the hot flashes. She has one area of pain in the medial aspect of her surgical scar which occurred during the last week or so. PHYSICAL EXAMINATION: VITAL SIGNS: Her weight today is 161.6 lb, blood pressure 125/94, pulse 103, temperature 97, saturation of 96%. GENERAL APPEARANCE: She is well nourished, well developed. HEENT: Pupils equal, round, reactive, sclerae nonicteric. NECK: Supple without palpable mass. LUNGS: Clear to auscultation bilaterally, no labored breathing. HEART: Rate is regular without murmurs. BREASTS: Status post mastectomy on the right side. There are no chest wall lesions. There is point tenderness in the medial aspect of the surgical scar in the underlying rib. There is no mass, no skin nodules. Left breast examination is unremarkable. No axillary palpable lymphadenopathies. ABDOMEN: Soft and nontender without palpable mass. Bowel sounds active with no organomegaly. EXTREMITIES: Without edema or cyanosis. LABORATORY DATA: Laboratory data is not obtained today. IMPRESSION: 1. Arimidex-induced arthralgia. 2. Hot flashes, not responding to Effexor. 3. Leg cramps. PLAN: 1. Stop Effexor, give Megace 40 mg p.o. b.i.d. to t.i.d. 2. Renew her prescription of Percocet. 3. Give Flexeril 5 mg p.o. q.h.s. p.r.n. for leg cramps. 4. Return visit in another 4 months. 5. Her next mammogram is due in January 2008. PAKO/Juan ROMAN PATTERSON [id number] SERVICE DATE: 11/27/07 /[id number] cc: Josephine Rodrigues M.D. Stewart Swena, M.D. Electronically Signed X MD LEONARDO Brown LEE ANN A [id number] SERVICE DATE: 11/27/07 12 :20 PM PDTdocumented in this encounter Plan of Treatment Not on filedocumented as of this encounter Visit Diagnoses Not on filedocumented in this encounter"
--- OUTSIDE RECORDS SUMMARY | ~2018-09-10 | XMS | Encounter Summary ---
Demographics + + + | Address | [address] | | | [place] [address] | + + + | Home Phone | | + + + | Preferred Language | Unknown | + + + | Marital Status | | + + + | Tenriism Affiliation | Unknown | + + + | Race | Unknown | + + + | Ethnic Group | Unknown | + + + Author + + + | Author | [facility] | + + + | Organization | [facility] | + + + | Address | Unknown | + + + | Phone | Unavailable | + + + Support + + + + + | Name | Relationship | Address | Phone | + + + + + | Ted Casas | ECON | [address] | | | | | [place] | | | | | [address] | | + + + + + | Jersey Marroquin | ECON | [place] | | | | | [address] | | + + + + + Care Team Providers + +------+ + | Care Fruit Distributor Name | Role | Phone | + +------+ + | Joselin Jose PA-C | PCP | | + +------+ + Encounter Details +--------+ + + + + | Date | Type | Department | Care Team | Description | +--------+ + + + + | 07/30/ | Procedure | [facility] | | | | 2019 | Pass | [facility] | | | | | | MRI [address] | | | | | | [address] | | | | | | [place] [address] | | | | | | [phone] | | | +--------+ + + + [...] | | | | | | [place], [place] | | | | | | [address] | | | | | | | | +--------+---------+ + + + as of this encounter Visit Diagnoses Not on filein this encounter"
--- OUTSIDE RECORDS SUMMARY | ~2018-09-10 | XMS | Encounter Summary ---
Demographics + + + | Address | [address] | | | [place] [address] | + + + | Home Phone | | + + + | Preferred Language | Unknown | + + + | Marital Status | | + + + | Spiritism Affiliation | NON | + + + | Race | White | + + + | Ethnic Group | Not or | + + + Author + + + | Author | [facility] | + + + | Organization | [facility] | + + + | Address | Unknown | + + + | Phone | Unavailable | + + + Support + + + + + | Name | Relationship | Address | Phone | + + + + + | Tde Casas | ECON | [address] | | | | | [place] | | | | | [address] | | + + + + + | Carmen Renteria | ECON | [address] | | | | | [place] | | | | | [address] | | + + + + + | Vince Loredo | ECON | [place] | | + + + + + Care Team Providers + +------+ + | Care Epic Kaleidoscope Analyst Name | Role | Phone | + [...] | | | | | nipple | [facility] [place] | [place], [place] | | | | | Procedures | [address] | [address] | | | | | REQUEST TO | Phone: | Phone: | | | | | SURGERY | [phone] | [phone] | | | | | LOG TRUCK DRIVER | Fax: | Fax: | | | | | [place] BREAST | [phone] | [phone] | | | | | RECONSTRUCT | [...] Dx) | | | | Surgery at [facility] [address] | [place], [place] | | | | | [address] | [address] | | | | | Code: [facility] | [phone] | | | | | for Health and | | | | | | [facility] Floor | | | | | | [place], [place] | | | | | | [address] | | | | | | [phone] | | | +--------+---------+ + + + [...]
--- OUTSIDE RECORDS SUMMARY | ~2018-09-10 | XMS | Encounter Summary ---
Demographics + + + | Address | [address] | | | [place] [address] | + + + | Home Phone [...] + | Ted Patterson | ECON | [address] | | | | | [place] | | | | | [address] | | + + + + + | Carmen Renteria | ECON | [address] | | | | | [place] | | | | | [address] | | + + + + + | Vince Loredo | ECON | [place] | | + + + + + Care Team Providers + +------+ + | Care Security Operations Engineer Name | Role | Phone | [...] [place] | | | | | [address] | [address] | | | | | | [phone] | | | | | | | [...] Jakob Rainey Le[place] - 07/07/2009 2:14 PM [facility] [address] [place] [id number] ROMAN PATTERSON DATE OF SERVICE: July 07, [...] another 6 months for follow- up. PAKO/Juan /[id number] Electronically Signed X MD LEONARDO Brown LEE ANN A [id number] : 54 [id number] SERVICE DATE: 07/07/09 12 :07 PM PDTdocumented in this encounter Plan of Treatment Not on filedocumented as of this encounter Visit Diagnoses Not on filedocumented in this encounter"
--- OUTSIDE RECORDS SUMMARY | ~2018-09-10 | XMS | Encounter Summary ---
Demographics + + + | Address | [address] | | | [place] [address] | + + + | Home Phone | | + + + | Preferred Language | Unknown | + + + | Marital Status | | + + + | Oriental Orthodox Affiliation | NON | + + [...] + | Ted Casas | ECON | [address] | | | | | [place] | | | | | [address] | | + + + + + | Carmen Renteria | ECON | [address] | | | | | [place] | | | | | [address] | | + + + + + | Vince Loredo | ECON | [place] | | + + + + + Care Team Providers + +------+ + | Care Quill Machine Operator Name | Role | Phone [...] [place] | | | | | [address] | [address] | | | | | | [phone] | | | | | | | [...] Erna Rainey MD - 06/18/2011 11:05 AM [facility] [address] [place], [place] [address]ROMAN FISHER ANN DATE OF SERVICE: June 18, [...] by the end of April 2012. PAKO/MedQ /[id number] cc: MD Adrián Ochoa M.D. Electronically Signed 06/03/12 1026 X MD LEONARDO Brown LEE ANN [id number] : [id number] SERVICE DATE: 06/18/11 12 :19 PM PDTdocumented in this encounter Plan of Treatment Not on filedocumented as of this encounter Visit Diagnoses Not on filedocumented in this encounter"
--- OUTSIDE RECORDS SUMMARY | ~2018-09-10 | XMS | Encounter Summary ---
Demographics + + + | Address | [address] | | | [place] [address] | + + + | Home Phone | | + + + | Preferred Language | Unknown | + + + | Marital Status | | + + + | Baptist Affiliation | NON | + + + | Race | White | + + + | Ethnic Group | Not or | + + + Author + + + | Author | [facility] | + + + | Organization | [facility] | + + + | Address | Unknown | + + + | Phone | Unavailable | + + + Support + + + + + | Name | Relationship | Address | Phone | + + + + + | Ted Patterson | ECON | [address] | | | | | [place] | | | | | [address] | | + + + + + | Carmen Renteria | ECON | [address] | | | | | [place] | | | | | [address] | | + + + + + | Vince Loredo | ECON | [place] | | + + + + + Care Team Providers + +------+ + | Care Steam And Power Supervisor Name | Role | Phone | [...] [place] | | | | | [address] | [address] | | | | | | [phone] | | | | | | | [...] Erna Rainey MD - 06/27/2010 9:35 PM [facility] [address] [place] [address] ROMAN PATTERSON ANN DATE OF SERVICE: June [...] a couple weeks. 3. I will continue rookz-3-rzaka followup if bone scan negative. XF/MedQ /[id number] Electronically Signed 10/12/10 1014 X MD LEONARDO Brown LEE ANN [id number] : [id number] SERVICE DATE: 06/27/10 9 :10 AM PDTdocumented in this encounter Plan of Treatment Not on filedocumented as of this encounter Visit Diagnoses Not on filedocumented in this encounter"
--- OUTSIDE RECORDS SUMMARY | ~2018-09-10 | XMS | Encounter Summary ---
Demographics + + + | Address | [address] | | | [place] [address] | + + + | Home Phone | | + + + | Preferred Language | Unknown | + + + | Marital Status | | + + + | Jewish Affiliation | NON | + + + | Race | White | + + + | Ethnic Group | Not or | + + + Author + + + | Author | [facility] | + + + | Organization | [facility] | + + + | Address | Unknown | + + + | Phone | Unavailable | + + + Support + + + + + | Name | Relationship | Address | Phone | + + + + + | Ted Casas | ECON | [address] | | | | | [place] | | | | | [address] | | + + + + + | Carmen Renteria | ECON | [address] | | | | | [place] | | | | | [address] | | + + + + + | Vince Loredo | ECON | [place] | | + + + + + Care Team Providers + +------+ + | Care Wicker Worker Name | Role | Phone | + +------+ + | Adrián Gregory MD | PCP | | + +------+ + Encounter Details +--------+ + + + + | Date | Type | Department | Care Team | Description | +--------+ + + + + | 05/14/ | Document-Sc | UNKNOWN DEPARTMENT | Radiologist, Nuc | | | 2008 | anned | [address] [facility] | Med [facility] | | | | | [facility] | | | | | | [place], [place] | | | | | | [address] | | | +--------+ + + + [...] + + | ORDERS OTHER | | 05/14/2008 | | Results for this | | | | 12:00 AM | | procedure are in the | | | | PST | | results section. | + +--------+ + + + documented in this encounter Results ORDERS OTHER (05/14/2008 12:00 AM PST) + + + | Narrative | Performed At | + + + | | | + + + + + | Procedure Note | + + | Carlton Faculty - 05/14/2008 12:00 AM PST | | | + + documented in this encounter Visit Diagnoses Not on filedocumented in this encounter"
--- OUTSIDE RECORDS SUMMARY | ~2018-09-10 | XMS | Encounter Summary ---
Demographics + + + | Address | [address] | | | [place] [address] | + + + | Home Phone | | + + + | Preferred Language | Unknown | + + + | Marital Status | | + + + | Anglican Affiliation | NON | + + + | Race | White | + + + | Ethnic Group | Not or | + + + Author + + + | Author | [facility] | + + + | Organization | [facility] | + + + | Address | Unknown | + + + | Phone | Unavailable | + + + Support + + + + + | Name | Relationship | Address | Phone | + + + + + | Ted Casas | ECON | [address] | | | | | [place] | | | | | [address] | | + + + + + | Carmen Renteria | ECON | [address] | | | | | [place] | | | | | [address] | | + + + + + | Vince Loredo | ECON | [place] | | + + + + + Care Team Providers + +------+ + | Care Day Care Teacher Name | Role | Phone | [...] Visit | Medicine Clinic at | J, INTENSIVE CARE UNIT NURSE [address] [facility] | Breast (Primary Dx); | | | | [facility] 4th Floor [address] | Other Specified | | | | Leandro Vargas Mail | [place], [place] | Pre-Operative | | | | Code: [address] | [address] | Examination | | | | for Health and | [phone] | | | | | [facility],4th Floor | | | | | | [place], [place] | | | | | | [address] | | | | | | [phone] | | | +--------+---------+ + + + [...] Scanned [facility] Ruddy Vargas Mail [place]: [place] [address] documented in th is encounter Plan of [...] + + + + | [facility] | [address] | [place] [address] | | | PATHOLOGY | [address] | | | + + + + + | [facility] | [address] | [place] [address] | | | PATHOLOGY | [address] [...] [place] DEPARTMENT | [address] | [place] [address] | | | PATHOLOGY | [address] | | | + + + + + | [facility] DEPARTMENT OF | [address] | [place] [address] | | | PATHOLOGY | [address] [...] | + + + + + | [facility] DEPARTMENT OF | [address] | [place] [address] | | | PATHOLOGY | [address] | | | + + + + + | [facility] DEPARTMENT | [address] | [place] [address] | | | PATHOLOGY | [address] [...] | + + + + + | [facility] DEPARTMENT OF | [address] | [place] [address] | | | PATHOLOGY | [address] | | | + + + + + | [facility] OF | [address] | [place] [address] | | | PATHOLOGY | [address] [...] Performed At | + + + | [id number] Estimated GFR > 60 mL/min/1.73 sq m if non- | [facility] | | [place] [id number] Estimated GFR > 60 mL/min/1.73 sq m if | DEPARTMENT OF | | [place] GFR is estimated using the MDRD equation [...] + | [facility] DEPARTMENT OF | [address] | [place] [address] | | | PATHOLOGY | [address] | | | + + + + + | [facility] DEPARTMENT OF | [address] | [place] [address] | | | PATHOLOGY | [address] [...] DEPARTMENT OF | [address] | [place] [address] | | | PATHOLOGY | [address] | | | + + + + + | [facility] DEPARTMENT OF | [address] | [place] [address] | | | PATHOLOGY | [address] [...] view image for the detailed interpretation from mytrax results. 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
--- OUTSIDE RECORDS SUMMARY | ~2018-09-10 | XMS | Encounter Summary ---
Demographics + + + | Address | [address] | | | [place] [address] | + + + | Home Phone | | + + + | Preferred Language | Unknown | + + + | Marital Status | | + + + | Faith Affiliation | NON | + + + | Race | White | + + + | Ethnic Group | Not or | + + + Author + + + | Author | [facility] | + + + | Organization | [facility] | + + + | Address | Unknown | + + + | Phone | Unavailable | + + + Support + + + + + | Name | Relationship | Address | Phone | + + + + + | Ted Casas | ECON | [address] | | | | | [place] | | | | | [address] | | + + + + + | Carmen Renteria | ECON | [address] | | | | | [place] | | | | | [address] | | + + + + + | Vince Loredo | ECON | [place] | | + + + + + Care Team Providers + +------+ + | Care Shot Peening Operator Name | Role | Phone | [...] [place] | | | | | | [address] | | | | | | [phone] | | | | | | | [...] | | DIAGNOSTICS | | | | stiff leg derrick operator: APPT 02/02 | | -[address] | | | | This test was [...] [facility] | | | | | | [facility] [address] | | | | | | [facility] [address] | | | | | | [place], | | | | | | [place] [address] | | | | | | : KAVIN JEROME MD | | | | + + + + + + + + | Specimen | + + | | + + + + + | Narrative | Performed At | + + + | Collected by Care Unit: Wade Comments to stiff leg derrick operator: MARY CARMEN 02/02 | [facility] | | | [facility] | | | [place] | + + + + + + + + | Performing | Address | City/State/Zipcode | Phone Number | | Organization | | | | + + + + + | [facility] | [address] [facility] | [place] [address] | [phone] | | [facility] [address] | | | | + + + [...] | [facility] | | | PLASMA | stiff leg derrick operator: APPT 02/02 | mmol/L | [facility] | | | (LAB) | | | LABORATORY | | + + + + + + | POTASSIUM, | 4.0Comment: Comments to | 3.5 - 5.2 | [facility] | | | PLASMA | stiff leg derrick operator: APPT 02/02 | mmol/L | [facility] | | | (LAB) | | | LABORATORY | | + + + + + + | CO2 | 26Comment: Comments to | 20 - 27 mmol/L | [facility] | | | | stiff leg derrick operator: APPT 02/02 | | [facility] | | | | | | LABORATORY | | + + + + + + | CHLORIDE, | 99Comment: Comments to | 96 - 106 mmol/L | [facility] | | | PLASMA | stiff leg derrick operator: APPT 02/02 | | [facility] | | | (LAB) | | | LABORATORY | | + + + + + + | ANION GAP | 13Comment: Comments to | 12 - 20 MEQ/L | [facility] | | | | stiff leg derrick operator: APPT 02/02 | | [facility] | | | | | | LABORATORY | | + + + + + + | GLUCOSE, | 206 (A)Comment: Comments | 70 - 105 mg/dL | [facility] | | | PLASMA | to stiff leg derrick operator: APPT | | [facility] | | | (LAB) | 02/02 | | LABORATORY | | + + + + + + | BUN, PLASMA | 15Comment: Comments to | 6 - 26 mg/dL | [facility] | | | (LAB) | stiff leg derrick operator: APPT 02/02 | | [facility] | | | | | | LABORATORY | | + + + + + + | CREATININE | 0.7Comment: Comments to | 0.6 - 1.1 mg/dL | [facility] | | | PLASMA | stiff leg derrick operator: APPT 02/02 | | [facility] | | | (LAB) | | | LABORATORY | | + + + + + + | BUN/CREATIN | 21 (A)Comment: Comments | 6 - 20 RATIO | [facility] | | | INE RATIO | to stiff leg derrick operator: APPT | | [facility] | | | | 02/02 | | LABORATORY | | + + + + + + | CALCIUM, | 9.8Comment: Comments to | 8.5 - 10.8 | [facility] | | | PLASMA | stiff leg derrick operator: APPT 02/02 | mg/dL | [facility] | | | (LAB) | | | LABORATORY | | + + + + + + | AST(SGOT) | 23Comment: Comments to | 10 - 41 U/L | [facility] | | | | stiff leg derrick operator: APPT 02/02 | | [facility] | | | | | | LABORATORY | | + + + + + + | ALT (SGPT) | 25Comment: Comments to | 7 - 51 U/L | [facility] | | | | stiff leg derrick operator: APPT 02/02 | | [facility] | | | | | | LABORATORY | | + + + + + + | ALK PHOS | 74Comment: Comments to | 32 - 180 U/L | [facility] | | | | stiff leg derrick operator: APPT 02/02 | | [facility] | | | | | | LABORATORY | | + + + + + + | TOTAL | 6.8Comment: Comments to | 5.8 - 8.5 g/dL | [facility] | | | PROTEIN, | stiff leg derrick operator: APPT 02/02 | | [facility] | | | PLASMA | | | LABORATORY | | | (LAB) | | | | | + + + + + + | ALBUMIN, | 4.0Comment: Comments to | 3.5 - 5.0 g/dL | [facility] | | | PLASMA | stiff leg derrick operator: APPT 02/02 | | [facility] | | | (LAB) | | | LABORATORY | | + + + + + + | BILIRUBIN | 0.2Comment: Comments to | 0.2 - 1.2 mg/dL | [facility] | | | TOTAL | stiff leg derrick operator: APPT 02/02 | | [facility] | | | | | | LABORATORY | | + + + + + + | ESTIMATED | >60.0Comment: Comments | >60 | [facility] | | | GFR | to stiff leg derrick operator: APPT | | [facility] | | | | 02/02 | | LABORATORY | | + + + + + + | FASTING? | UNKComment: Collected by | HR | [facility] | | | | Care Unit: NComments to | | [facility] | | | | stiff leg derrick operator: APPT | | LABORATORY | | | | 1021 | | | | | | | | | | + + + + + + + + | Specimen | + + | | + + + + + | Narrative | Performed At | + + + | Collected by Care Unit: N Comments to stiff leg derrick operator: MARY CARMEN 02/02 | [facility] | [...] [facility] | | | CELL COUNT | stiff leg derrick operator: APPT 10/21 | 3/uL | [facility] | | | | | | LABORATORY | | + + + + + + | HEMOGLOBIN | 13.2Comment: Comments to | 12.0 - 16.0 | [facility] | | | | stiff leg derrick operator: APPT | g/dL | [facility] | | | | 10/21 | | LABORATORY | | + + + + + + | RED BLOOD | 4.45Comment: Comments to | 3.5 - 5.0 X10 | [facility] | | | CELL COUNT | stiff leg derrick operator: APPT | 6/uL | [facility] | | | | 10/21 | | LABORATORY | | + + + + + + | HEMATOCRIT | 40.4Comment: Comments to | 37.0 - 45.0 % | [facility] | | | | stiff leg derrick operator: APPT | | [facility] | | | | 10/21 | | LABORATORY | | + + + + + + | MCV | 90.8Comment: Comments to | 82 - 100 fL | [facility] | | | | stiff leg derrick operator: APPT | | [facility] | | | | 10/21 | | LABORATORY | | + + + + + + | MCH | 29.6Comment: Comments to | 28.0 - 35.0 pg | [facility] | | | | stiff leg derrick operator: APPT | | [facility] | | | | 10/21 | | LABORATORY | | + + + + + + | MCHC | 32.7Comment: Comments to | 32 - 36 g/dL | [facility] | | | | stiff leg derrick operator: APPT | | [facility] | | | | 10/21 | | LABORATORY | | + + + + + + | RDW | 13.3Comment: Comments to | 12 - 16 % | [facility] | | | | stiff leg derrick operator: APPT | | [facility] | | | | / | | LABORATORY | | + + + + + + | PLATELET | 186Comment: Comments to | 140 - 350 X10 3 | [facility] | | | COUNT | stiff leg derrick operator: APPT 02/02 | | [facility] | | | | | | LABORATORY | | + + + + + + | MPV | 7.0Comment: Comments to | 7.0 - 12.0 fL | [facility] | | | | stiff leg derrick operator: APPT / | | [facility] | | | | | | LABORATORY | | + + + + + + | NEUTROPHIL | 45.2Comment: Comments to | 40 - 80 % | [facility] | | | % | stiff leg derrick operator: APPT | | [facility] | | | | 10/ | | LABORATORY | | + + + + + + | NEUTROPHIL | 2.4Comment: Comments to | 1.3 - 8.8 x10 | [facility] | | | # | stiff leg derrick operator: APPT 02/02 | 3/UL | [facility] | | | | | | LABORATORY | | + + + + + + | LYMPHOCYTE | 41.8Comment: Comments to | 15 - 45 % | [facility] | | | % | stiff leg derrick operator: APPT | | [facility] | | | | 10/21 | | LABORATORY | | + + + + + + | LYMPHOCYTE | 2.1Comment: Comments to | 0.5 - 5.0 x10 | [facility] | | | # | stiff leg derrick operator: APPT 02/02 | 3/UL | [facility] | | | | | | LABORATORY | | + + + + + + | EOS % | 2.3Comment: Comments to | 0 - 5.8 % | [facility] | | | | stiff leg derrick operator: APPT 02/02 | | [facility] | | | | | | LABORATORY | | + + + + + + | EOS # | 0.1Comment: Comments to | 0.0 - 0.7 x10 | [facility] | | | | stiff leg derrick operator: APPT 02/02 | 3/UL | [facility] | | | | | | LABORATORY | | + + + + + + | BASO % | 0.5Comment: Comments to | 0 - 1.8 % | [facility] | | | | stiff leg derrick operator: APPT 02/02 | | [facility] | | | | | | LABORATORY | | + + + + + + | BASO # | 0.0Comment: Comments to | 0.0 - 0.2 x10 | [facility] | | | | stiff leg derrick operator: APPT 02/02 | 3/UL | [facility] | | | | | | LABORATORY | | + + + + + + | MONOCYTE % | 10.2Comment: Comments to | 4.2 - 11.0 % | [facility] | | | | stiff leg derrick operator: APPT | | [facility] | | | | 10/21 | | LABORATORY | | + + + + + + | MONOCYTE # | 0.5Comment: Collected by | 0.1 - 1.3 x10 | [facility] | | | | Care Unit: NComments to | 3/UL | [facility] | | | | stiff leg derrick operator: APPT | | LABORATORY | | | | 10/21 | | | | | | | | | | + + + + + + + + | Specimen | + + | | + + + + + | Narrative | Performed At | + + + | Collected by Care Unit: Wade Comments to stiff leg derrick operator: MARY CARMEN 02/02 | [facility] | [...]
--- OUTSIDE RECORDS SUMMARY | ~2018-09-10 | XMS | Encounter Summary ---
Demographics + + + | Address | [address] | | | [place] [address] | + + + | Home Phone | | + + + | Preferred Language | Unknown | + + + | Marital Status | | + + + | Sabianist Affiliation | NON | + + + | Race | White | + + + | Ethnic Group | Not or | + + + Author + + + | Author | [facility] | + + + | Organization | [facility] | + + + | Address | Unknown | + + + | Phone | Unavailable | + + + Support + + + + + | Name | Relationship | Address | Phone | + + + + + | Ted Casas | ECON | [address] | | | | | [place] | | | | | [address] | | + + + + + | Carmen Renteria | ECON | [address] | | | | | [place] | | | | | [address] | | + + + + + | Vince Loredo | ECON | [place] | | + + + + + Care Team Providers + +------+ + | Care Rough And Trueing Machine Operator Name | Role | Phone | + +------+ + | Dominick Garcia MD | PCP | | + +------+ + Encounter Details +--------+------+ + + + | Date | Type | Department | Care Team | Description | +--------+------+ + + + | 08/23/ | Lab | [facility] | | Malignant neoplasm | | 2015 | | Center - Lab [address] | | of upper-outer | | | | [address] | | quadrant of right | | | | [place], [place] | | female breast (HCC) | | | | [address] | | (Primary Dx) | | | | [phone] | | | +--------+------+ + + + [...] + + | CBC W/DIFF, REFLEX | Urgent | 08/24/2015 | Malignant neoplasm | Results for this | | | | 2:28 PM | of upper-outer | procedure are in the | | | | PDT | quadrant of right | results section. | | | | | female breast (HCC) | | + +--------+ + + + | CBC AND AUTO DIFF | Urgent | 08/24/2015 | Malignant neoplasm | Results for this | | | | 2:28 PM | of upper-outer | procedure are in the | | | | PDT | quadrant of right | results section. | | | | | female breast (HCC) | | + +--------+ + + + | [facility], | Routin | 08/24/2015 | Malignant neoplasm | Results for this | | SERUM | e | 2:28 PM | of upper-outer | procedure are in the | | | | PDT | quadrant of right | results section. | | | | | female breast (HCC) | | + +--------+ + + + | CA 27-29, SERUM | Routin | 08/24/2015 | Malignant neoplasm | Results for this | | | e | 2:28 PM | of upper-outer | procedure are in the | | | | PDT | quadrant of right | results section. | | | | | female breast (HCC) | | + +--------+ + + + | COMPLETE METABOLIC | Urgent | 08/24/2015 | Malignant neoplasm | Results for this | | SET | | 2:28 PM | of upper-outer | procedure are in the | | (NA,K,CL,CO2,BUN,CRE | | PDT | quadrant of right | results section. | | AT,GLUC,CA,AST,ALT,B | | | female breast (HCC) | | | VINCE TOTAL,ALK | | | | | | PHOS,ALB,PROT TOTAL) | | | | | + +--------+ + + + documented in this encounter Results CBC AND AUTO DIFF (08/24/2015 2:28 PM PDT) + + + + + + | Component | Value | Ref Range | Performed | Pathologist | | | | | At | Signature | + + + + + + | WBC COUNT | 6.0 | 4.4 - 11.0 K/cu | [facility] | | | | | mm | | | + + + + + + | RED CELL | 4.90 | 4.00 - 5.20 | [facility] | | | COUNT | | M/cu mm | | | + + + + + + | HEMOGLOBIN | 13.5 | 12.0 - 16.0 | [facility] | | | | | g/dL | | | + + + + + + | HEMATOCRIT | 41.6 | 36.0 - 46.0 % | [facility] | | + + + + + + | MCV | 84.8 | 80.0 - 96.0 fL | [facility] | | + + + + + + | MCH | 27.6 (L) | 28.0 - 34.7 pg | [facility] | | + + + + + + | MCHC | 32.6 (L) | 33.0 - 35.5 | [facility] | | | | | g/dL | | | + + + + + + | RDW | 13.8 | 11.5 - 15.0 % | [facility] | | + + + + + + | PLATELET | 154 | 150 - 400 K/cu | [facility] | | | COUNT | | mm | | | + + + + + + | MPV | 7.7 (L) | 9.7 - 12.3 fL | [facility] | | + + + + + + | NEUTROPHIL | 51.7 | 50.0 - 70.0 % | [facility] | | | % | | | | | + + + + + + | LYMPHOCYTE | 42.5 (H) | 18.0 - 42.0 % | [facility] | | | % | | | | | + + + + + + | MONOCYTE % | 2.9 (L) | 3.5 - 9.0 % | [facility] | | + + + + + + | EOS % | 2.3 | 1.0 - 3.0 % | [facility] | | + + + + + + | BASO % | 0.6 | 0.0 - 2.0 % | [facility] | | + + + + + + | NEUTROPHIL | 3.20 | 1.80 - 7.70 | [facility] | | | # | | K/cu mm | | | + + + + + + | LYMPHOCYTE | 2.50 | 1.00 - 4.80 | [facility] | | | # | | K/cu mm | | | + + + + + + | MONOCYTE # | 0.20 | 0.10 - 0.90 | [facility] | | | | | K/cu mm | | | + + + + + + | EOS # | 0.10 | 0.00 - 0.50 | [facility] | | | | | K/cu mm | | | + + + + + + | BASO # | 0.00 | 0.00 - 0.10 | [facility] | | | | | K/cu mm | | | + + + + + + + + | Specimen | + + | Blood | + + + +---------+ + + | Performing | Address | City/State/Zipcode | Phone Number | | Organization | | | | + +---------+ + + | [facility] | | | | + +---------+ + + | [facility] | | [place] [address] | | + +---------+ + + CA 27-29, SERUM (08/24/2015 2:28 PM PDT) + + + + + + | Component | Value | Ref Range | Performed | Pathologist | | | | | At | Signature | + + + + + + | CA 27-29 | 9Comment: This test was | <38 U/mL | [facility] | | | | performed using the | | DIAGNOSTICS | [...] + + + | [facility] | [address] | [place] [address] | | | - [place] | [address] | | | + + + + + [facility], SERUM (08/24/2015 2:28 PM PDT) + +-------+ + + + | Component | Value | Ref Range | Performed | Pathologist | | | | | At | Signature | + +-------+ + + + | [facility] | 6.2 | ng/mL | [facility] | | | [facility] | | | A MEDICAL | | | AG, SERUM | | | CENTER | | + +-------+ + + + + + | Specimen | + + | Blood | + + + + + | Narrative | Performed At | + + + | Reference Range: Non-smokers: 0.0-3.0 ng/mL | [facility] | | Smokers: 0.0-5.0 ng/mL | [facility] | + + + + + + + + | Performing | Address | City/State/Zipcode | Phone Number | | Organization | | | | + + + + + | [facility] | And | [place] [address] | [phone] | | MEDICAL CENTER | Streets | | | + + + + + COMPLETE METABOLIC SET (NA,K,CL,CO2,BUN,CREAT,GLUC,CA,AST,ALT,BILI TOTAL,ALK PHOS,ALB,PROT TOTAL) (08/24/2015 2:28 PM PDT) + +---------+ + + + | Component | Value | Ref Range | Performed | Pathologist | | | | | At | Signature | + +---------+ + + + | GLUCOSE, | 238 (H) | 70 - 105 mg/dL | [...] +---------+ + + + | POTASSIUM, | 3.4 | 3.4 - 5.3 | [facility] | | | PLASMA | | mmol/L | A MEDICAL | | | (LAB) | | | CENTER | | + +---------+ + + + | CHLORIDE, | 98 | 96 - 106 mmol/L | [facility] [...] | BILIRUBIN | 0.5 | 0.2 - 1.2 mg/dL | [facility] | | | TOTAL | | | A MEDICAL | | | | | | CENTER | | + +---------+ + + + | TOTAL | 7.0 | 5.8 - 8.5 g/dL | [facility] [...] + + + | ALK PHOS | 66 | 32 - 180 U/L | [facility] | | | | | | A MEDICAL | | | | | | CENTER | | + +---------+ + + + | AST(SGOT) | 36 | 10 - 41 U/L | [facility] | | | | | | A MEDICAL | | | | | | CENTER | | + +---------+ + + + | ALT (SGPT) | 25 | 7 - 51 U/L | [facility] | | | | | | A MEDICAL | | | | | | CENTER | | + +---------+ + + + | EGFR | >60 | >60 mL/min | [facility] | | | - | | | A MEDICAL | | | [facility] | | | CENTER | | + [...] the MDRD equation recommended by the | [facility] | | National Kidney Disease Education Program. Estimated GFR | [facility] | | Interpretive Information: <60 mL/min/1.73 [...] | + + + + + | [facility] | And | [place] [address] | [phone] | | [facility] | Streets | | | + + + + + documented in this encounter Visit Diagnoses + + | Diagnosis | + + | Malignant neoplasm of upper-outer quadrant of right female breast (HCC) - Primary | | Malignant neoplasm of upper-outer quadrant of female breast | + + documented in this encounter"
--- OUTSIDE RECORDS SUMMARY | ~2018-09-10 | XMS | Encounter Summary ---
Demographics + + + | Address | [address] | | | [place] [address] | + + + | Home Phone [...] + | Ted Casas | ECON | [address] | | | | | [place] | | | | | [address] | | + + + + + | Carmen Renteria | ECON | [address] | | | | | [place] | | | | | [address] | | + + + + + | Vince Loredo | ECON | [place] | | + + + + + Care Team Providers + +------+ + | Care Belt Operator Name | Role | Phone | [...] [place] | | | | | [address] | [address] | | | | | | [phone] | | | | | | | [...] Erna Rainey MD - 01/09/2011 12:[address] [facility] [address] [place] [id number] [place], [place] [address] DATE OF SERVICE: January 09, 2011 DIAGNOSIS: [...] in 6 months for next followup. PAKO/Juan /[id number] Electronically Signed 02/08/12 0916 X MD LEONARDO Brown LEE ANN [id number] : [id number] SERVICE DATE: 01/09/11 3 :56 PM PDTdocumented in this encounter Plan of Treatment Not on filedocumented as of this encounter Visit Diagnoses Not on filedocumented in this encounter"
--- OUTSIDE RECORDS SUMMARY | ~2018-09-10 | XMS | Encounter Summary ---
Demographics + + + | Address | [address] | | | [place] [address] | + + + | Home Phone | | + + + | Preferred Language | Unknown | + + + | Marital Status | | + + + | Sikhism Affiliation | Unknown | + + + | Race | Unknown | + + + | Ethnic Group | Unknown | + + + Author + + + | Author | [facility] [employer] | + + + | Organization | [facility] [employer] | + + + | Address | Unknown | + + + | Phone | Unavailable | + + + Support + + + + + | Name | Relationship | Address | Phone | + + + + + | Ted Casas | ECON | [address] | | | | | [place] | | | | | [address] | | + + + + + | Jersey Marroquin | ECON | [place] | | | | | [address] | | + + + + + Care Team Providers + +------+ + | Care Property Insurance Inspector Name | Role | Phone | [...] | Radiology | Diagnoses | Suleman, | [facility] | | | | | Numbness | MD Wally | [address] | | | | | Procedures | [address] | | | | | MRI lumbar | [address] | [place], [place] | | | | | spine | Drive | [address] Phone: | | | | | without | [place], [place] | [phone] | | | | | contrast | [address] | Fax: | | | | | | Phone: | [phone] | | | | | | [phone] | | | | | | | Fax: | | | | | | | [phone] | | +--------+--------+ + + + + MRI/CAT Scan (Routine) +--------+--------+ + + + + | Status | Reason | Specialty | Diagnoses / | Referred By | Referred To | | | | | Procedures | Contact | Contact | +--------+--------+ + + + + | Closed | | Radiology | Diagnoses | Suleman, | [facility] | | | | | Numbness | MD Wally | [address] | | | | | Procedures | [address] | | | | | MRI lumbar | [address] | [place], [place] | | | | | spine | Drive | [address] Phone: | | | | | without | [place] | [phone] | | | | | contrast | [address] | Fax: | | | | | | Phone: | [phone] | | | | | | [phone] | | | | | | | Fax: | | | | | | | [phone] | | +--------+--------+ + + + + Reason for Visit MRI/CAT Scan (Routine) +--------+--------+ + + + + | Status | Reason | Specialty | Diagnoses / | Referred By | Referred To | | | | | Procedures | Contact | Contact | +--------+--------+ + + + + | Closed | | Radiology | Diagnoses | Suleman, | [facility] | | | | | Numbness | MD Wally | [address] | | | | | Procedures | [address] | | | | | MRI lumbar | [address] | [place] | | | | | spine | Drive | [address] Phone: | | | | | without | [place] | [phone] | | | | | contrast | [address] | Fax: | | | | | | Phone: | [phone] | | | | | | [phone] | | | | | | | Fax: | | | | | | | [phone] | | +--------+--------+ + + + + Encounter Details +--------+ + + + + | Date | Type | Department | Care Team | Description | +--------+ + + + + | 08/05/ | Hospital | [facility] | Wally Shell, | Numbness | | 2019 | Encounter | [facility] | [address] | | | | | MRI [address] | Drive [place], [place] | | | | | [address] | [address] | | | | | [place] [address] | | | | | | [phone] | | | +--------+ + + + [...] | | | | | | Drive [place], [place] | | | | | | [address] | | | | | | | [...] | + + + + + | [facility] | [address] [facility] | [place] [address] | | + + + + + in this encounter Visit Diagnoses + + | Diagnosis | + + | Numbness | + + | Disturbance of skin sensation | + +"
--- OUTSIDE RECORDS SUMMARY | ~2018-09-10 | XMS | Encounter Summary ---
Demographics + + + | Address | [address] | | | [place] [address] | + + + | Home Phone | | + + + | Preferred Language | Unknown | + + + | Marital Status | | + + + | Jew Affiliation | NON | + + + | Race | White | + + + | Ethnic Group | Not or | + + + Author + + + | Author | [facility] | + + + | Organization | [facility] | + + + | Address | Unknown | + + + | Phone | Unavailable | + + + Support + + + + + | Name | Relationship | Address | Phone | + + + + + | Ted Casas | ECON | [address] | | | | | [place] | | | | | [address] | | + + + + + | Carmen Renteria | ECON | [address] | | | | | [place] | | | | | [address] | | + + + + + | Vince Loredo | ECON | [place] | | + + + + + Care Team Providers + +------+ + | Care Implant Coordinator Name | Role | Phone | + +------+ + | Dominick Garcia MD | PCP | | + +------+ + Encounter Details +--------+ + + + + | Date | Type | Department | Care Team | Description | +--------+ + + + + | 01/09/ | Orange Peel Operator | [facility] | Erna Rainey, | | | 2015 | | Center - Medical | MD [address] | | | | | Oncology [address] | [place], [place] | | | | | The | [address] | | | | | [place] | [phone] | | | | | [address] | | | | | | [phone] | | | +--------+ + + + [...]
--- OUTSIDE RECORDS SUMMARY | ~2018-09-10 | XMS | Encounter Summary ---
Demographics + + + | Address | [address] | | | [place] [address] | + + + | Home Phone | | + + + | Preferred Language | Unknown | + + + | Marital Status | | + + + | Yazidi Affiliation | NON | + + + [...] + | Ted Patterson | ECON | [address] | | | | | [place] | | | | | [address] | | + + + + + | Carmen Renteria | ECON | [address] | | | | | [place] | | | | | [address] | | + + + + + | Vince Loredo | ECON | [place] | | + + + + + Care Team Providers + +------+ + | Care Operations Research Scientist Name | Role | Phone | + [...] [place] | | | | | [address] | [address] | | | | | | [phone] | | | | | | | [...] Erna Rainey MD - 01/11/2010 9:18 AM [facility] [address] [place] [address] ROM[address] PATTERSON DATE OF SERVICE: January 10, 2010 DIAGNOSIS: Stage I (T1B, N0, N0) breast cancer. INTERIM HISTORY: The patient is taking Arimidex as part of her adjuvant treatment. She has hot flashes but she is able to tolerate pretty well. She just recently retired, she was able to travel with her in their fifth wheel, went to [facility] and [facility].. She had a good time. She [...] obtain laboratory studies at next visit. PAKO/Juan /[id number] cc: Adrián Gregory M.D. Electronically Signed 05/10/10 1009 X MD LEONARDO Brown LEE ANN A [id number] : [id number] SERVICE DATE: 01/10/10 9 :11 AM PDTdocumented in this encounter Plan of Treatment Not on filedocumented as of this encounter Visit Diagnoses Not on filedocumented in this encounter"
--- OUTSIDE RECORDS SUMMARY | ~2018-09-10 | XMS | Encounter Summary ---
Demographics + + + | Address | [address] | | | [place] [address] | + + + | Home Phone [...] + + + | Author | [facility] | + + + | Organization | [facility] | + + + | Address | Unknown | + + + | Phone | Unavailable | + + + Support + + + + + | Name | Relationship | Address | Phone | + + + + + | Ted Casas | ECON | [address] | | | | | [place] | | | | | [address] | | + + + + + | Carmen Renteria | ECON | [address] | | | | | [place] | | | | | [address] | | + + + + + | Vince Loredo | ECON | [place] | | + + + + + Care Team Providers + +------+ + | Care C S S Representative Name | Role | Phone | + [...] Visit | Medicine Clinic at | A, STATION CHIEF [address] | (Primary Dx) | | | | [facility] 4th Floor [address] | | | | | [address] [address] | [place], [place] | | | | | Code: [address] | [address] | | | | | for Health and | [phone] | | | | | [facility],4th Floor | | | | | | [place], [place] | | | | | | [address] | | | | | | [phone] | | | +--------+---------+ + + + [...] once daily in e morning. TAKE IF Vpfcaa-qvafrqfvu-vlrjzgoreznbm (PERCOCET) 5-325 mg Oral Tablet, Take 1 [...] from anyone by 3:00 PM please call [phone] for [id number]-[id number]. PARKING Parking for patients and visitors is available in the [facility] Parking structure located across from the emergency [...] prior to your surgery. PRODUCTS CONTAINING ASPIRIN Tammi-Ar[place], Anacin, Anexsia with Codeine, Andynos, Aspirin, Aspirin suppositories, Ascrip tin, Aspergum, Axotal, B-A-C, Baby Aspirin, Emy, BC Powder, Bexophene, Buffaprin, Bufferin , Buffinol, Cama-Arthritis Strength, Congespirin, [place], Coricidin, Damason, Darvon, Dristan, Jocelyn-Gesic, Digel, Dolprin #3 Tablets, Donatab, Doxaphene, Duragesic, Easprin, Ecotrin, Emag rin Forte, Emiprin, Emprazil, Equagesic, Equazine M, Excedrin, Fiogesic, Fiorgen PH, Fiorice t, Fiorinal, 4-Way Cold Tablet Gemnisyn, Indocin, Liquprin, Lortab ASA, Magnaprin, Marnal, Meprobamate, Midol, Momentum, N orgesic, Delano, Orphengesic, Pabalate, P-A-C, Percodan, Presalin, Robaxasil, Roxiprin, Alex eto, Salocol SK-65 Compound, Sine-Aid, Sine-Off,, Sully, Supac, Talwin Compound, Trigesic, Tolectin , Traiminicin, Vanquish, ZORprin, Zomax PRODUCTS CONTAINING IBUPROFEN Advil, Aleve, Haltran, Medipren, Midol, Motrin, Naproxyn, Nuprin, Rufen OTHER PRODUCTS WHICH MAY PROMOTE BLEEDING Vitamin E, Gingko Biloba, Marine Fatty Acids, Wardell-3 Fish Oil Supplements documented in this encounter Progress Notes Antoinette Cotto - 09/03/2008 3:24 PM PDTSee Scanned H&P. documented in this e ncounter Plan of Treatment + + +--------+ + + | Name | Type | Priori | Associated Diagnoses | Order Schedule | | | | ty | | | + + +--------+ + + | TN COLLECTION VENOUS | Procedures | Routin | [...] Performed At | + + + | [id number] Estimated GFR > 60 mL/min/1.73 sq m if non- | [facility] | | Colombian [id number] Estimated GFR > 60 mL/min/1.73 sq m if | DEPARTMENT OF | | Colombian GFR is estimated using the MDRD equation [...] + + | Performing | Address | City/[facility] [address]/[facility] | Phone Number | | Organization | | | | + + + + + | [facility] | [address] [place] [address] | [place] [address] | | | PATHOLOGY | [address] | | | + + + + + | [facility] | [address] [place] [address] | [place] [address] | | | PATHOLOGY | [address] [...] DEPARTMENT OF | [address] | [place] [address] | | | PATHOLOGY | [address] | | | + + + + + | [facility] DEPARTMENT | [address] | [place] [address] | | | PATHOLOGY | [address] [...] view image for the detailed interpretation from [employer] results. | CARDIOLOGY | | | | + + + + + + + + | Performing | Address | City/State/Zipcode | Phone Number | | Organization | | | | + + + + + | [facility] DEPT OF | [address] | [place], [place] | | | CARDIOLOGY | [address] | [address] | | + + + + + | [facility] DEPT OF | [address] [facility] | [place], [place] | | | CARDIOLOGY | [address] [facility] | [address] | | + + + + + documented in this encounter Visit Diagnoses + + | Diagnosis | + + | Preop examination - Primary Preoperative examination, unspecified | + + documented in this encounter
--- OUTSIDE RECORDS SUMMARY | ~2018-09-10 | XMS | Encounter Summary ---
Demographics + + + | Address | [address] | | | [place] [address] | + + + | Home Phone | | + + + | Preferred Language | Unknown | + + + | Marital Status | | + + + | Shinto Affiliation | Unknown | + + + | Race | Unknown | + + + | Ethnic Group | Unknown | + + + Author + + + | Author | [facility] | + + + | Organization | [facility] | + + + | Address | Unknown | + + + | Phone | Unavailable | + + + Support + + + + + | Name | Relationship | Address | Phone | + + + + + | Ted Casas | ECON | [address] | | | | | [place] | | | | | [address] | | + + + + + | Jersey Marroquin | ECON | [place] | | | | | [address] | | + + + + + Care Team Providers + +------+ + | Care Personalized Living Assistant Name | Role | Phone | [...] | | [address] | Drive [place], [place] | consult) | | | | [place], [place] | [address] | | | | | [address] | | | | | | [phone] | | | +--------+ + + + [...] | | | | | | [place] | | | | | | [address] | | | | | | | | +--------+---------+ + + + as of this encounter Visit Diagnoses Not on filein this encounter"
--- OUTSIDE RECORDS SUMMARY | ~2018-09-10 | XMS | Encounter Summary ---
Demographics + + + | Address | [address] | | | [place] [address] | + + + | Home Phone | | + + + | Preferred Language | Unknown | + + + | Marital Status | | + + + | Rastafarian Affiliation | NON | + + + [...] + | Ted Patterson | ECON | [address] | | | | | [place] | | | | | [address] | | + + + + + | Carmen Renteria | ECON | [address] | | | | | [place] | | | | | [address] | | + + + + + | Vince Loredo | ECON | [place] | | + + + + + Care Team Providers + +------+ + | Care Field Care Coordinator Name | Role | Phone | [...] [place] | | | | | [address] | [address] | | | | | | [phone] | | | | | | | [...] documented as of this encounter Progress Notes Jkaob Rainey - 11/27/2007 6:51 AM PDT [facility] [address] [place] [address] LEONARDO,ROMAN Cardenas DATE OF SERVICE: November 27, [...] due in January 2008. PAKO/Juan ROMAN PATTERSON [id number] SERVICE DATE: 11/27/07 /[id number] cc: Josephine Rodrigues M.D. Stewart Swena, M.D. Electronically Signed X MD LEONARDO Brown LEE ANN A [id number] SERVICE DATE: 11/27/07 12 :20 PM PDTdocumented in this encounter Plan of Treatment Not on filedocumented as of this encounter Visit Diagnoses Not on filedocumented in this encounter"
--- OUTSIDE RECORDS SUMMARY | ~2018-09-10 | XMS | Encounter Summary ---
Demographics + + + | Address | [address] | | | [place] [address] | + + + | Home Phone [...] + | Ted Patterson | ECON | [address] | | | | | [place] | | | | | [address] | | + + + + + | Carmen Renteria | ECON | [address] | | | | | [place] | | | | | [address] | | + + + + + | Vince Loredo | ECON | [place] | | + + + + + Care Team Providers + +------+ + | Care Brush Finisher Name | Role | Phone | [...] [place] | | | | | [address] | [address] | | | | | | [phone] | | | | | | | [...] Jakob Rainey Leandro - 07/07/2009 2:14 PM [facility] [address] [place] [address] ROM[address] PATTERSON DATE OF SERVICE: July 07, [...] another 6 months for follow- up. PAKO/Juan /[id number] Electronically Signed X MD LEONARDO Brown LEE ANN A [id number] : [id number] SERVICE DATE: 07/07/09 12 :07 PM PDTdocumented in this encounter Plan of Treatment Not on filedocumented as of this encounter Visit Diagnoses Not on filedocumented in this encounter"
--- OUTSIDE RECORDS SUMMARY | ~2018-09-10 | XMS | Clinical Summary ---
Demographics + + + | Address | [address] | | | [place] [address] | + + + | Home Phone [...] + | Ted Casas | ECON | [address] | | | | | [place] | | | | | [address] | | + + + + + | Carmen Renteria | ECON | [address] | | | | | [place] | | | | | [address] | | + + + + + | Vince Loredo | ECON | [place] | | + + + + + Care Team Providers + +------+ + | Care Correctional Supervisor Lieutenant Name | Role | Phone | + +------+ + | Dominick Clark | PP | | + +------+ + Source Comments [facility] is fully live on both EpicCare Ambulatory and EpicCare InPatient.[facility] Allergies + + + + + + [...] | RAIL | xxxxxxxxxxx | Effect | [phone] | [address] | | [address] | | [place] | 0 | [address] | re | | | [employer] | | for | | [place], [place] | | | | RE | | all | | [address] | | | | | | dates [...] Person | Self | [birth year] | [address] | | | al/Fam | | 2 | [phone] | [place] [address] | | | jitendra | | | 5 (Home) | | | | | | | [phone] | | | | | | | 8 (Work) | | + +--------+ +--------+ + + | Roman Casas | Person | Self | [birth year] | | [address] | | | al/Fam | | 1950 | [phone] | [place] [address] | | | jitendra | | | [...]
--- OUTSIDE RECORDS SUMMARY | ~2018-09-10 | XMS | Encounter Summary ---
Demographics + + + | Address | [address] | | | [place] [address] | + + + | Home Phone [...] + | Ted Casas | ECON | [address] | | | | | [place] | | | | | [address] | | + + + + + | Carmen Renteria | ECON | [address] | | | | | [place] | | | | | [address] | | + + + + + | Vince Loredo | ECON | [place] | | + + + + + Care Team Providers + +------+ + | Care Dressage Instructor Name | Role | Phone | [...] of | | | | Surgery at [facility] [address] | [place], [place] | Breast | | | | [address] | [address] | | | | | Code: [facility] | [phone] | | | | | for Health and | | | | | | [facility], 5th Floor | | | | | | [place], [place] | | | | | | [address] | | | | | | [phone] | | | +--------+---------+ + + + [...]
--- OUTSIDE RECORDS SUMMARY | ~2018-09-10 | XMS | Encounter Summary ---
Demographics + + + | Address | [address] | | | [place] [address] | + + + | Home Phone [...] + | Ted Casas | ECON | [address] | | | | | [place] | | | | | [address] | | + + + + + | Carmen Renteria | ECON | [address] | | | | | [place] | | | | | [address] | | + + + + + | Vince Loredo | ECON | [place] | | + + + + + Care Team Providers + +------+ + | Care Local Driver Name | Role | Phone | + [...] | | | | | The | [address] | | | | | [place], [place] | [phone] | | | | | [address] | | | | | | [phone] | | | +--------+---------+ + + + [...] (SGPT) (U/L) 09/10/2017 20 7-51 EGFR - INDIAN (mL/min) 09/10/2017 >60 >60- EGFR NON -INDIAN (mL/min) 09/10/2017 >60 >60- ANION GAP (mmol/L) [...] Nausea/Vomiting Cephalexin Pruritus Medications history reviewed. A stockroom worker was offered to the patient and they [...]
--- OUTSIDE RECORDS SUMMARY | ~2018-09-10 | XMS | Encounter Summary ---
Demographics + + + | Address | [address] | | | [place] [address] | + + + | Home Phone | | + + + | Preferred Language | Unknown | + + + | Marital Status | | + + + | Samaritan Affiliation | NON | + + + | Race | White | + + + | Ethnic Group | Not or | + + + Author + + + | Author | [facility] | + + + | Organization | [facility] | + + + | Address | Unknown | + + + | Phone | Unavailable | + + + Support + + + + + | Name | Relationship | Address | Phone | + + + + + | Ted Casas | ECON | [address] | | | | | [place] | | | | | [address] | | + + + + + | Carmen Renteria | ECON | [address] | | | | | [place] | | | | | [address] | | + + + + + | Vince Loredo | ECON | [place] | | + + + + + Care Team Providers + +------+ + | Care Invoice Machine Operator Name | Role | Phone | + +------+ + | Adrián Gregory MD | PCP | | + +------+ + Encounter Details +--------+ + + + + | Date | Type | Department | Care Team | Description | +--------+ + + + + | 01/06/ | Results | NON-[facility] | Erna Rainey, | | | 2008 | Only | Department | MD [address] | | | | | [address] [place] | | | | | | [address] | | | | | | [phone] | | | | | | | [...] | CBC W/DIFF, REFLEX | Routin | 01/06/2009 | | Results for this | | | e | 12:34 PM | | procedure are in the | | | | PDT | | results section. | + +--------+ + + + | COMPLETE METABOLIC | Routin | 01/06/2009 | | Results for this | | SET | e | 12:34 PM | | procedure are in the | | (NA,K,CL,CO2,BUN,CRE | | PDT | | results section. | | AT,GLUC,CA,AST,ALT,B | | | | | | VINCE TOTAL,ALK | | | | | | PHOS,ALB,PROT TOTAL) | | | | | + +--------+ + + + documented in this encounter Results CBC W/DIFF, REFLEX (01/06/2009 12:34 PM PDT) + +---------+ + + + | Component | Value | Ref Range | Performed | Pathologist | | | | | At | Signature | + +---------+ + + + | WHITE BLOOD | 6.1 | 4.3 - 11.0 X10 | [facility] [...] + + + | RED BLOOD | 4.72 | 4.2 - 5.4 X10 | [facility] | | | CELL COUNT | | 6/uL | A MEDICAL | | | | | | CENTER | | + +---------+ + + + | HEMATOCRIT | 40.3 | 38.0 - 47.0 % | [facility] [...] +---------+ + + + | MCH | 29.1 | 28.0 - 32.0 pg | [facility] | | | | | | A MEDICAL | | | | | | CENTER | | + +---------+ + + + | MCHC | 34.1 | 32 - 36 g/dL | [facility] | | | | | | A MEDICAL | | | | | | CENTER | | + +---------+ + + + | RDW | 12.6 | 12 - 15 fL | [facility] | | | | | | A MEDICAL | | | | | | CENTER | | + +---------+ + + + | PLATELET | 185 | 150 - 450 X10 3 | [...] +---------+ + + + | NEUTROPHIL | 46.6 | 40 - 80 % | [facility] | | | % | | | A MEDICAL | | | | | | CENTER | | + +---------+ + + + | NEUTROPHIL | 2.8 | 1.9 - 8.0 x10 | [facility] | | | # | | 3/UL | A MEDICAL | | | | | | CENTER | | + +---------+ + + + | LYMPHOCYTE | 43.2 | 20 - 50 % | [facility] | | | % | | | A MEDICAL | | | | | | CENTER | | + +---------+ + + + | LYMPHOCYTE | 2.6 | 0 - 6 x10 3/UL | [facility] | | | # | | | A MEDICAL | | | | | | CENTER | | + +---------+ + + + | EOS % | 3.0 | 0 - 5 % | [facility] [...] + | MONOCYTE % | 6.5 | 2 - 10 % | [facility] | | | | | | A MEDICAL | | | | | | CENTER | | + +---------+ + + + | MONOCYTE # | 0.4 | 0 - 0.6 x10 | [facility] | | | | | 3/UL | A MEDICAL | | | | | | CENTER | | + +---------+ + + + | BANDS % | 0.7 | 0 - 7 % | [facility] | | | | | | A MEDICAL | | | | | | CENTER | | + +---------+ + + + | BANDS # | 0.0 (L) | 0.00 - 0.70 x10 | [facility] | | | | | 3/UL [...] | + + + + + | [facility] | And | [place] [address] | | | [facility] | Streets | | | + + + + + COMPLETE METABOLIC SET (NA,K,CL,CO2,BUN,CREAT,GLUC,CA,AST,ALT,BILI TOTAL,ALK PHOS,ALB,PROT TOTAL) (01/06/2009 12:34 PM PDT) + +---------+ + + + | Component | Value | Ref Range | Performed | Pathologist | | | | | At | Signature | + +---------+ + + + | SODIUM, | 140 | 137 - 146 MEQ/L | [facility] | | | PLASMA | [...] +---------+ + + + | CO2 | 26 | 22 - 28 MEQ/L | [facility] | | | | | | A MEDICAL | | | | | | CENTER | | + +---------+ + + + | CHLORIDE, | 107 (H) | 98 - 106 MEQ/L | [facility] | | | PLASMA | | | A MEDICAL | | | (LAB) | | | CENTER | | + +---------+ + + + | GLUCOSE, | 85 | 70 - 105 MG/DL | [facility] | | | PLASMA | | | A MEDICAL | | | (LAB) | | | CENTER | | + +---------+ + + + | BUN, PLASMA | 14 | 8 - 30 MG/DL | [facility] [...] +---------+ + + + | BUN/CREATIN | 23 (H) | 6 - 20 RATIO | [...] +---------+ + + + | AST(SGOT) | 31 | 10 - 41 U/L | [facility] [...] + + + | ALK PHOS | 51 | 40 - 180 U/L | [facility] | | | | | | A MEDICAL | | | | | | CENTER | | + +---------+ + + + | TOTAL | 6.9 | 6.7 - 8.5 G/DL | [facility] | | | PROTEIN, | | | A MEDICAL | | | PLASMA | | | CENTER | | | (LAB) | | | | | + +---------+ + + + | ALBUMIN, | 4.4 | 3.5 - 5.0 G/DL | [facility] | | | PLASMA | | | A MEDICAL | | | (LAB) | | | CENTER | | + +---------+ + + + | BILIRUBIN | 0.7 | 0.2 - 1.6 MG/DL | [facility] [...] +---------+ + + + | FASTING? | .5HR PC | HR | [facility] | | [...] [facility] | | [place] [address] | | | [facility] | [place] | | | + + + + + documented in this encounter Visit Diagnoses Not on filedocumented in this encounter"
--- OUTSIDE RECORDS SUMMARY | ~2018-09-10 | XMS | Encounter Summary ---
Demographics + + + | Address | [address] | | | [place] [address] | + + + | Home Phone | | + + + | Preferred Language | Unknown | + + + | Marital Status | | + + + | Orthodox Affiliation | NON | + + + | Race | White | + + + | Ethnic Group | Not or | + + + Author + + + | Author | [facility] | + + + | Organization | [facility] | + + + | Address | Unknown | + + + | Phone | Unavailable | + + + Support + + + + + | Name | Relationship | Address | Phone | + + + + + | Ted Casas | ECON | [address] | | | | | [place] | | | | | [address] | | + + + + + | Carmen Renteria | ECON | [address] | | | | | [place] | | | | | [address] | | + + + + + | Vince Loredo | ECON | [place] | | + + + + + Care Team Providers + +------+ + | Care Mate Fishing Vessel Name | Role | Phone | + [...] Tomasz | | | | | at [facility] | [facility] | | | | | [address] | [place], [place] [facility] | | | | | [facility] | | | | | | Mailcode: [id number] [facility] | | | | | | [facility] | | | | | | [facility], | | | | | | [place] [address] | | | | | | [phone] | | | +--------+ + + + [...] this encounter Results 12 LEAD ECG (05/07/2008 1:17 PM PST) [...] view image for the detailed interpretation from [employer] results. | CARDIOLOGY | | | | + + + + + + + + | Performing | Address | City/State/Zipcode | Phone Number | | Organization | | | | + + + + + | [facility] | [address] [facility] | [place], [place] | | | CARDIOLOGY | [facility] | [address] | | + + + + + | [facility] | [address] [facility] | [place], [place] | | | CARDIOLOGY | [facility] | [address] | | + + + + + documented in this encounter Visit Diagnoses Not on filedocumented in this encounter
--- OUTSIDE RECORDS SUMMARY | ~2018-09-10 | XMS | Encounter Summary ---
Demographics + + + | Address | [address] | | | [place] [address] | + + + | Home Phone [...] + | Ted Casas | ECON | [address] | | | | | [place] | | | | | [address] | | + + + + + | Carmen Renteria | ECON | [address] | | | | | [place] | | | | | [address] | | + + + + + | Vince Loredo | ECON | [place] | | + + + + + Care Team Providers + +------+ + | Care Staff Auditor Name | Role | Phone | + [...] | | laterality, | | | | [address] | | unspecified site of | | | | [phone] | | breast (HCC) | +--------+------+ + [...] | [facility] | | [place] [address] | | + +---------+ + + CA [...] | [facility] | [address] [facility] | [place] [address] | | | - [place] | [address] | | | + + + + + CARCINOEMBRYONIC AG, SERUM (05/16/2016 2:33 PM PST) + +-------+ + + + | Component | Value | Ref Range | Performed | Pathologist | | | | | At | Signature | + +-------+ + + + | [facility] | 8.9 | ng/mL | [facility] | | | EMBRYONIC | | | A MEDICAL | | | AG, SERUM | | | CENTER | | + +-------+ + + + + + | Specimen | + + | Blood | + + + + + | Narrative | Performed At | + + + | Reference Range: Non-smokers: 0.0-3.0 ng/mL | [facility] | | Smokers: 0.0-5.0 ng/mL | [facility] | + + + + + + + + | Performing | Address | City/State/Zipcode | Phone Number | | Organization | | | | + + + + + | [facility] | And | [place] [address] | [phone] | | MEDICAL CENTER | Streets | [...] (H) | 70 - 105 mg/dL | [facility] | | | PLASMA | | | [...] | | A MEDICAL | | | [facility] | | | CENTER | | + [...] the MDRD equation recommended by the | [facility] | | National Kidney Disease Education [...] | + + + + + | [facility] | And | [place] [address] | [phone] | | [facility]ICAL [place] | Street | | | + + + + + documented in this encounter Visit Diagnoses + + | Diagnosis | + + | Malignant neoplasm of female breast, unspecified laterality, unspecified site of | | breast | + + documented in this encounter"
--- OUTSIDE RECORDS SUMMARY | ~2018-09-10 | XMS | Encounter Summary ---
Demographics + + + | Address | [address] | | | [place] [address] | + + + | Home Phone [...] + + + | Author | [facility] | + + + | Organization | [facility] | + + + | Address | Unknown | + + + | Phone | Unavailable | + + + Support + + + + + | Name | Relationship | Address | Phone | + + + + + | Ted Casas | ECON | [address] | | | | | [place] | | | | | [address] | | + + + + + | Carmen Renteria | ECON | [address] | | | | | [place] | | | | | [address] | | + + + + + | Vince Loredo | ECON | [place] | | + + + + + Care Team Providers + +------+ + | Care Front Desk Auxiliary Name | Role | Phone | + +------+ + | Adrián Gregory MD | PCP | | + +------+ + Reason for Visit + + + | Reason | Comments | + + + | Follow-up visit | rvsn of R breast recon and R NAC | + + + Office Visit - [...] | | | | Mail Code: | [place], [place] | | | | | | [facility] | [address] | | | | | | for Health | Phone: | | | | | | and [address], | [phone] | | | | | | 5th Floor | Fax: | | | | | | [place], [place] | [phone] | | | | | | [address] | | | | | | | Phone: | | | | | | | [phone] | | +--------+--------+ + + + + Encounter Details +--------+---------+ + + + | Date | Type | Department | Care Team | Description | +--------+---------+ + + + | 06/29/ | Office | Plastic and | Jelena Carias, | S/P breast | | 2009 | Visit | Reconstructive | [address] | reconstruction; | | | | Surgery at [facility] [address] | [place], [place] | Hernia, epigastric | | | | [address] | [address] | | | | | Code: [facility] | [phone] | | | | | for Health and | | | | | | Healing, 5th Floor | | | | | | [place], [place] | | | | | | [address] | | | | | | [phone] | | | +--------+---------+ + + + [...] encounter Progress Notes Jelena Carias MD - 06/29/2009 3:17 PM PDTSubjective: Roman Casas presents 1 years status post pedicled TRAM for delayed right breast recon. She was seen 2 months ago with concerns about an epigastric bulge and diagnosed with hernia. She is here for f/u today. She denies any pain or discomfort in the area. She does occas ionally notice the bulge in certain clothes. Objective: Epigastric bulge unchanged. Nontender to palpation. TRAM well healed. Donor site otherwi se is ok Assessment: Epigastric hernia. Asymptomatic at this time and not enlarging. Photos done today Plan: No surgical intervention recommended at this time. She will monitor this area for any pretty ges Pt will follow up in 6 months with me, sooner prn. documented in this en counter Plan of Treatment Not on filedocumented as of this encounter Visit Diagnoses + + | Diagnosis | + + | S/P breast reconstruction Breast replaced by other means | + + | Hernia, epigastric Other ventral hernia without mention of obstruction or gangrene | + + documented in this encounter"
--- OUTSIDE RECORDS SUMMARY | ~2018-09-10 | XMS | Encounter Summary ---
Demographics + + + | Address | [address] | | | [place] [address] | + + + | Home Phone [...] + | Ted Patterson | ECON | [address] | | | | | [place] | | | | | [address] | | + + + + + | Carmen Renteria | ECON | [address] | | | | | [place] | | | | | [address] | | + + + + + | Vince Loredo | ECON | [place] | | + + + + + Care Team Providers + +------+ + | Care Novelty Twister Operator Name | Role | Phone | [...] [place] | | | | | | [address] | | | +--------+ + + + [...] | + + + | [address] [place] [address] | [facility] | | [place] [address] | DEPARTMENT | | [phone] | RADIOLOGY | | Name: LEONARDOROMANRINKU Phys: MARISOL ALBERTO Leandro | | | : 1950 Sex: F CSN: | | | [id number] MR# [id number] Exam Date: | | | 11/01/2015 EXAM: [...] Transcribed | | | Date/Time: 11/01/2015 13:29 Finisher Tailor Apprentice: FLUENCY | | + + + + + | Procedure Note | + + | Interface, Radiology Results - 11/01/2015 1:33 PM PDT [address] | | [place] [address] | | Name: ROMAN PATTERSON ANN Phys: MARISOL ALBERTO : 1950 Sex: F | | CSN: [id number] MR# [id number] Exam Date: 11/01/2015 EXAM:BONE DENSITY 1 OR [...] | | |Transcribed Date/Time: 11/01/2015 13:29 | |Finisher Tailor Apprentice: FLUENCY | | | | | | [...]
--- OUTSIDE RECORDS SUMMARY | ~2018-09-10 | XMS | Encounter Summary ---
Demographics + + + | Address | [address] | | | [place] [address] | + + + | Home Phone [...] + | Ted Casas | ECON | [address] | | | | | [place] | | | | | [address] | | + + + + + | Carmen Renteria | ECON | [address] | | | | | [place] | | | | | [address] | | + + + + + | Vince Loredo | ECON | [place] | | + + + + + Care Team Providers + +------+ + | Care Cisco Consultant Name | Role | Phone | [...] | | | [address] | [address] | breast in female, | | | | [place] | [phone] | estrogen receptor | | | | [address] | | positive (HCC) | | | | [phone] | | (Primary Dx) | +--------+---------+ + [...] (SGPT) (U/L) 02/20/2017 26 7-51 EGFR - [place] (mL/min) 02/20/2017 >60 >60- EGFR NON -[place] (mL/min) 02/20/2017 >60 >60- ANION GAP (mmol/L) [...] + | [facility] | | [place] [address] | [phone] | | [facility] | Streets | | | + + [...] | | A MEDICAL | | | [place] | | | CENTER | | + [...] | FASTING 8 | No | | [facility] | | | HOURS [place] | | | A MEDICAL | | | MORE? | | | CENTER | | + +---------+ + + + + + | Specimen | + + | Blood | + + + + + | Narrative | Performed At | + + + | GFR is estimated using the MDRD equation recommended by the | [facility] | | National Kidney Disease Education Program. 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
--- OUTSIDE RECORDS SUMMARY | ~2018-09-10 | XMS | Encounter Summary ---
Demographics + + + | Address | [address] | | | [place] [address] | + + + | Home Phone [...] + | Ted Casas | ECON | [address] | | | | | [place] | | | | | [address] | | + + + + + | Carmen Renteria | ECON | [address] | | | | | [place] | | | | | [address] | | + + + + + | Vince Loredo | ECON | [place] | | + + + + + Care Team Providers + +------+ + | Care Clinical Secretary Name | Role | Phone | + [...] [place] | | | | | | [address] | | | | | | [phone] | | | | | | | [...] | CBC W/DIFF, REFLEX | Routin | 06/18/2011 | | Results for this | | | e | 8:26 AM | | procedure are in the | | | | PST | | results section. | + +--------+ + + + | COMPLETE METABOLIC | Routin | 06/18/2011 | | Results for this | | SET | e | 8:26 AM | | procedure are in the | | (NA,K,CL,CO2,BUN,CRE | | PST | | results section. | | AT,GLUC,CA,AST,ALT,B | | | | | | VINCE TOTAL,ALK | | | | | | PHOS,ALB,PROT TOTAL) | | | | | + +--------+ + + + documented in this encounter Results CBC W/DIFF, REFLEX (06/18/2011 8:26 AM PST) + +---------+ + + + | Component | Value | Ref Range | Performed | Pathologist | | | | | At | Signature | + +---------+ + + + | WHITE BLOOD | 6.3 | 4.3 - 11.0 X10 | [facility] [...] + + + | RED BLOOD | 4.51 | 4.2 - 5.4 X10 | [facility] | | | CELL COUNT | | 6/uL | A MEDICAL | | | | | | CENTER | | + +---------+ + + + | HEMATOCRIT | 38.3 | 38.0 - 47.0 % | [facility] [...] +---------+ + + + | MCH | 29.0 | 28.0 - 32.0 pg | [facility] | | | | | | A MEDICAL | | | | | | CENTER | | + +---------+ + + + | MCHC | 34.2 | 32 - 36 g/dL | [facility] | | | | | | A MEDICAL | | | | | | CENTER | | + +---------+ + + + | RDW | 13.4 | 12 - 15 fL | [facility] [...] +---------+ + + + | NEUTROPHIL | 49.7 | 40 - 80 % | [facility] | | | % | | | A MEDICAL | | | | | | CENTER | | + +---------+ + + + | NEUTROPHIL | 3.1 | 1.9 - 8.0 x10 | [facility] | | | # | | 3/UL | A MEDICAL | | | | | | CENTER | | + +---------+ + + + | LYMPHOCYTE | 41.2 | 20 - 50 % | [facility] [...] + + + | MONOCYTE % | 4.9 | 2 - 10 % | [facility] [...] + + + | BANDS % | 1.0 | 0 - 7 % | [facility] [...] | + + + + + | [facility] | And | [place] [address] | [phone] | | [facility] | Streets | | | + + + + + | [facility] | And | [place] [address] | | | [facility] | [place] | | | + + + + + COMPLETE METABOLIC SET (NA,K,CL,CO2,BUN,CREAT,GLUC,CA,AST,ALT,BILI TOTAL,ALK PHOS,ALB,PROT TOTAL) (06/18/2011 8:26 AM PST) + + + + + [...] + + + + | CO2 | 28 | 22 - 28 MEQ/L | [facility] | | | | | | A MEDICAL | | | | | | CENTER | | + + + + + + | CHLORIDE, | 103 | 98 - 106 MEQ/L | [facility] | | | PLASMA | | | A MEDICAL | | | (LAB) | | | CENTER | | + + + + + + | ANION GAP | 14.1 | 8 - 16 MEQ/L | [facility] | | | | | | A MEDICAL | | | | | | CENTER | | + + + + + + | GLUCOSE, | 169 (H) | 70 - 105 MG/DL | [facility] | | | PLASMA | | | A MEDICAL | | | (LAB) | | | CENTER | | + + + + + + | BUN, PLASMA | 19 | 8 - 30 MG/DL | [facility] | | | (LAB) | | | A MEDICAL | | | | | | CENTER | | + + + + + + | CREATININE | 0.44 (L) | 0.6 - 1.1 MG/DL | [facility] | | | PLASMA | | | A MEDICAL | | | (LAB) | | | CENTER | | + + + + + + | BUN/CREATIN | 43 (H) | 6 - 20 RATIO | [...] + + + | ALT (SGPT) | 28 | 7 - 51 U/L | [facility] [...] + + + + | TOTAL | 7.2 | 6.7 - 8.5 G/DL | [facility] [...] + + + + | ESTIMATED | 155.6 | >60 | [facility] | | | GFR | | | A MEDICAL | | | | | | CENTER | | + + + + + + | FASTING? | 14.5HR PC | HR | [facility] | | [...] | + + + + + | [facility] | And [place] | [place] [address] | [phone] | | MEDICAL CENTER | Streets | | | + + + + + | [facility] | And [place] | [place] [address] | | | MEDICAL CENTER | Streets | | | + + + + + documented in this encounter Visit Diagnoses Not on filedocumented in this encounter"
--- OUTSIDE RECORDS SUMMARY | ~2018-09-10 | XMS | Encounter Summary ---
Demographics + + + | Address | [address] | | | [place] [address] | + + + | Home Phone [...] + | Ted Casas | ECON | [address] | | | | | [place] | | | | | [address] | | + + + + + | Carmen Renteria | ECON | [address] | | | | | [place] | | | | | [address] | | + + + + + | Vince Loredo | ECON | [place] | | + + + + + Care Team Providers + +------+ + | Care A And P Mechanic Name | Role | Phone | + +------+ + | Adrián Gregory MD | PCP | | + +------+ + Encounter Details +--------+ + + + + | Date | Type | Department | Care Team | Description | +--------+ + + + + | 05/10/ | Commercial Art Instructor | Preoperative | [place] | HTN (Primary Dx) | | 2008 | | [facility] | J, TOILET 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 | CARDIOLOGY | | | | + + + + + + + + | Performing | Address | City/State/Zipcode | Phone Number | | Organization | | | | + + + + + | [facility] | [address] | [place], [place] | | | CARDIOLOGY | [address] | [address] | | + + + + + | [facility] | [address] | [place], [place] | | | CARDIOLOGY | [address] [facility] | [address] | | + + + + + documented in this encounter Visit Diagnoses + + | Diagnosis | + + | HTN - Primary Unspecified essential hypertension | + + documented in this encounter
--- OUTSIDE RECORDS SUMMARY | ~2018-09-10 | XMS | Encounter Summary ---
Demographics + + + | Address | [address] | | | [place] [address] | + + + | Home Phone [...] + | Ted Casas | ECON | [address] | | | | | [place] | | | | | [address] | | + + + + + | Carmen Renteria | ECON | [address] | | | | | [place] | | | | | [address] | | + + + + + | Vince Loredo | ECON | [place] | | + + + + + Care Team Providers + +------+ + | Care Director Facilities Maintenance Name | Role | Phone | + [...] | | | | [address] | [address] | | | | | [place], [place] | [phone] | | | | | [address] | | | | | | [phone] | | | +--------+ + + + [...]
--- OUTSIDE RECORDS SUMMARY | ~2018-09-10 | XMS | Encounter Summary ---
Demographics + + + | Address | [address] | | | [place] [address] | + + + | Home Phone [...] + + + | Author | [facility] | + + + | Organization | [facility] | + + + | Address | Unknown | + + + | Phone | Unavailable | + + + Support + + + + + | Name | Relationship | Address | Phone | + + + + + | Ted Casas | ECON | [address] | | | | | [place] | | | | | [address] | | + + + + + | Carmen Renteria | ECON | [address] | | | | | [place] | | | | | [address] | | + + + + + | Vince Loredo | ECON | [place] | | + + + + + Care Team Providers + +------+ + | Care Financial Consultant Name | Role | Phone | [...] [place], [place] | | | | | [address] | [address] | | | | | [place], [place] | [phone] | | | | | [address] | | | | | | [phone] | | | +--------+--------+ + + + [...]
--- OUTSIDE RECORDS SUMMARY | ~2018-09-10 | XMS | Encounter Summary ---
Demographics + + + | Address | [address] | | | [place] [address] | + + + | Home Phone [...] + + | Author | [facility] | + + + | Organization | [facility] | + + + | Address | Unknown | + + + | Phone | Unavailable | + + + Support + + + + + | Name | Relationship | Address | Phone | + + + + + | Ted Casas | ECON | [address] | | | | | [place] | | | | | [address] | | + + + + + | Carmen Renteria | ECON | [address] | | | | | [place] | | | | | [address] | | + + + + + | Vince Loredo | ECON | [place] | | + + + + + Care Team Providers + +------+ + | Care Manager Project Name | Role | Phone | + +------+ + | Adrián Gregory MD | PCP | | + +------+ + Reason for Visit AUTH/CERT +--------+--------+ + + + + | Status | Reason | Specialty | Diagnoses / | Referred By | Referred To | | | | | Procedures | Contact | Contact | +--------+--------+ + + + + | Closed | | | | | [facility] | | | | | | | [facility] | | | | | | | [address] | | | | | | | [address] | | | | | | | [address] | | | | | | | [facility] | | | | | | | [place], | | | | | | | [place] [address] | | | | | | | Phone: | | | | | | | [phone] | | | | | | | Fax: | | | | | | | [phone] | +--------+--------+ + + + + Encounter Details +--------+ + + + + | Date | Type | Department | Care Team | Description | +--------+ + + + + | 01/27/ | Hospital | [facility] [address] | Carias Jelena, | | | 2009 - | Encounter | [address] | [address] | | | | | [address] [place] | [place], [place] | | | 05/16/ | | HOSPITAL [place], | [address] | | | 2008 | | [place] [address] | [phone] | | | | | [phone] | | | +--------+ + + + [...] + + + | Blood Pressure | 101/57 | 05/16/2008 8:05 AM | | | | | PST | | + + + + + | Pulse | 80 | 05/16/2008 8:05 AM | | | | | PST | | + + + + + | Temperature | 36.9 C (98.4 F) | 05/16/2008 8:05 AM | | | | | PST | | + + + + + | Respiratory Rate | 18 | 05/16/2008 8:05 AM | | | | | PST | | + + + + + | Oxygen Saturation | 93% | 05/16/2008 8:05 AM | | | | | PST | | + + + + + | Inhaled Oxygen | - | - | | | Concentration | | | | + + + + + | Weight | 79.2 kg (174 lb 9.7 | 05/16/2008 6:05 AM | | | | oz) | PST | | + + + + + | Height | 157.5 cm (5' 2") | 05/11/2008 6:00 AM | | | | | PST | | + + + + + | Body Mass Index | 31.94 | 05/11/2008 6:00 AM | | | | | PST | | + + + + + documented in this encounter Discharge Summaries Other, Faculty - 05/16/2008 1:03 PM NICOLLE Arzate Md, Jose R James - 05/16/2008 10:18 AM PSTAgr ee with above. Patient to follow up on Sat06/02/08 Will go home on colace, clinda, metoprolol, oxycodone and her regular meds Will place antibiotic ointment on her umbilical wound Andree Waterman, Jose R James - 05/16/2008 10:18 AM PST INPATIENT PROVIDER DISCHARGE AND INTERDISCIPLINARY INSTRUCTIONS Admission Date: 05/11/2008 Discharge Date: 05/16/2008 Service: Plastic Surgery PCP: Adrián Gregory MD Principal Final Diagnosis: Acquired abscence of right breast Additional Diagnoses: History of breast cancer, status post resection of right breast Principal Procedure: Delayed right breast reconstruction with pedicled TRAM flap Additional Procedures: JHONATHNA drain placement x3 Telemetry Serial monitoring Cardiology consult and workup Cardiac stress test Medications: START taking these medications aspirin 325 mg Oral Tablet Take 1 Tab by mouth once daily. Qty: 30 Refills: 0 Bacitracin Topical Ointment by Topical route. Apply to belly button and any incisions that do not have steri strips in place three times daily after cleaning. Qty: 1 tube Refills: 0 clindamycin 300 mg Oral Capsule Take 1 Cap by mouth four times daily. Qty: 40 Refills: 0 docusate sodium (COLACE) 100 mg Oral Capsule Take 1 Cap by mouth two times daily. Qty: 60 Refills: 0 metoprolol tartrate 12.5 mg Oral Tablet Take 2 Each by mouth two times daily. Qty: 60 Refills: 1 Percocet 1 tab by mouth every 4-6 hours as necessary for pain # 90 senna-docusate 8.6-50 mg Oral Tablet Take 1 Tab by mouth two times daily. While on pain meds. Hold for loose stools. Qty: 60 Refills: 0 CONTINUE these medications which have NOT CHANGED ARIMIDEX 1 mg Oral Tablet take 1 tablet (1 mg) by oral route once daily CALCIUM + D 600 (1,500)-200 mg-unit Oral Tablet 1 tab p.o. twice daily CRESTOR 20 mg Oral Tablet take 1 tablet (20 mg) by oral route once daily cyclobenzaprine 5 mg Oral Tablet Take [...] by mouth once daily in the morning. NEXIUM PACKET 40 mg Oral Susp,Delayed Release for Recon take 1 packet (40 mg) by oral route 2 times per day mixed with 15 ml water, let sit 2-3 mi nutes, stir and drink within 30 minutes potassium chloride SR 20 mEq Oral Tab [...] D ORAL 1 tab p.o. twice daily STOP taking these medications Reason for Admission, Significant Findings, Treatment, and Complications Brief Hospital Course: Perry Casas is a 58 yo female admitted for above procedures. Post-operatively, she had a n EKG which showed a left bundle branch block and rapid rate. She was given medications for rate control and converted to a normal sinus rhythm. She never had chest pain and had a ne gative troponin series. A Cardiology consultation was obtained and she underwent a chemical stress test, which was normal. She was found to have some oxygen saturations in the mid-80 s initially, which resolved. The remainder of her post-operative recovery was as expected ex cept for ischemia of her umbilicus and fredy-umbilical erythema. Umbilicus was felt to be via ble at discharge. She was treated with Ancef then Keflex. It was thought that the Keflex was causing pruritis so it was changed to Clindamycin. She remained in hospital for flap monito ring, pain control, and routine post-operative care. She was discharged home when tolerating a regular diet, ambulating, voiding without difficulty, and her pain was controlled. Her 02 sats on discharge were in the low 90's. Outpt metoprolol was added per Cardiology recommend ations. Diet: Regular Activity: No driving while taking pain medications. No strenuous activity. No swimming or submerging incision under water. No compressive bras or bras with underwire. Walk slightl y forward-flexed at the hips. No sit-ups or lifting more than 10 pounds until instructed. Special Instructions: (Treatment, Equipment, Supplies, Dressings, LAB follow-up) Please see your Dr Parish to have your JHONATHAN drains removed as follows: each drain can be rem paula one at a time once it has less than 30cc fluid output in 24hrs. Call: Plastic Surgery at or [phone] if after hours If you have any of the following: Difficulty breathing or unusual shortness of breath Excessive bleeding, drainage at the operative site Fevers, chills, increased pain that is not relieved by pain medications Persistent nausea or vomiting Your TRAM flap turns cold and pale or blue. Worsening redness around your incisions. Follow Up Appointments: PCP: Adrián Gregory MD in about 2 weeks Plastic Surgery clinic: Dr. Carias in about 2 weeks (Sat, 06/02). Call [phone] to make an appointment. Local surgeon: Dr Parish to remove JHONATHAN drains as instructed. No cardiology follow-up needed. Follow Up Tests: (Tests at [facility] must be entered into [facility]) None Vital Signs at discharge as appropriate: BP: 101/57 mmHg (05/16/08 8:05 AM) Pulse: 80 (05/16/08 8:05 AM) Resp: 18 (05/16/08 8:05 AM) Wt - Scale: 79.2 kg (174 lb 9.7 oz) (05/16/08 6:05 AM) Discharge Patient To: Home Condition On Discharge: stable Does patient have a planned readmission: No Discharge Summary Completed: Yes Discharging Provider: Jose R Arzate MD [facility] [id number] [place] [address] Date Completed: 05/16/2008 Time Completed: 1015 Discharging Attending: Jelena Carias MD Instructions discussed with patient and written copy provided. documented in this encounter Discharge Instructions Instructions Jose R Arzate Md - 05/13/2008Formatting of this note might be different fr om the original. INPATIENT PROVIDER DISCHARGE AND INTERDISCIPLINARY INSTRUCTIONS Admission Date: 05/11/2008 Discharge Date: 05/16/2008 Service: Plastic Surgery PCP: Adrián Gregory MD Principal Final Diagnosis: Acquired abscence of right breast Additional Diagnoses: History of breast cancer, status post resection of right breast Principal Procedure: Delayed right breast reconstruction with pedicled TRAM flap Additional Procedures: JHONATHAN drain placement x3 Telemetry Serial monitoring Cardiology consult and workup Cardiac stress test Medications: START taking these medications aspirin 325 mg Oral Tablet Take 1 Tab by mouth once daily. Qty: 30 Refills: 0 bacitracin 500 unit/g Topical Ointment by Topical route. Apply to belly button and any incisions that do not have steri strips in place three times daily after cleaning. Qty: 1 tube Refills: 0 clindamycin 300 mg Oral Capsule Take 1 Cap by mouth four times daily. Qty: 40 Refills: 0 docusate sodium (COLACE) 100 mg Oral Capsule Take 1 Cap by mouth two times daily. Qty: 60 Refills: 0 metoprolol tartrate 12.5 mg Oral Tablet Take 2 Each by mouth two times daily. Qty: 60 Refills: 1 Percocet 1 tab by mouth every 4-6 hours as needed for pain #90 senna-docusate 8.6-50 mg Oral Tablet Take 1 Tab by mouth two times daily. While on pain meds. Hold for loose stools. Qty: 60 Refills: 0 CONTINUE these medications which have NOT CHANGED ARIMIDEX 1 mg Oral Tablet take 1 tablet (1 mg) by oral route once daily CALCIUM + D 600 (1,500)-200 mg-unit Oral Tablet 1 tab p.o. twice daily CRESTOR 20 mg Oral Tablet take 1 tablet (20 mg) by oral route once daily cyclobenzaprine 5 mg Oral Tablet Take [...] by mouth once daily in the morning. NEXIUM PACKET 40 mg Oral Susp,Delayed Release for Recon take 1 packet (40 mg) by oral route 2 times per day mixed with 15 ml water, let sit 2-3 mi nutes, stir and drink within 30 minutes potassium chloride SR 20 mEq Oral Tab [...] D ORAL 1 tab p.o. twice daily STOP taking these medications Reason for Admission, Significant Findings, Treatment, and Complications Brief Hospital Course: Perry Casas is a 58 yo female admitted for above procedures. Post-operatively, she had a n EKG which showed a left bundle branch block and rapid rate. She was given medications for rate control and converted to a normal sinus rhythm. She never had chest pain and had a ne gative troponin series. A Cardiology consultation was obtained and she underwent a chemical stress test, which was normal. She was found to have some oxygen saturations in the mid-80 s initially, which resolved. The remainder of her post-operative recovery was as expected ex cept for ischemia of her umbilicus and fredy-umbilical erythema. Umbilicus was felt to be via ble at discharge. She was treated with Ancef then Keflex. It was thought that the Keflex was causing pruritis so it was changed to Clindamycin. She remained in hospital for flap monito ring, pain control, and routine post-operative care. She was discharged home when tolerating a regular diet, ambulating, voiding without difficulty, and her pain was controlled. Her 02 sats on discharge were in the low 90's. Outpt metoprolol was added per Cardiology recommend ations. Diet: Regular Activity: No driving while taking pain medications. No strenuous activity. No swimming or submerging incision under water. No compressive bras or bras with underwire. Walk slightl y forward-flexed at the hips. No sit-ups or lifting more than 10 pounds until instructed. Special Instructions: (Treatment, Equipment, Supplies, Dressings, LAB follow-up) Please see your Dr Parish to have your JHONATHAN drains removed as follows: each drain can be rem paula one at a time once it has less than 30cc fluid output in 24hrs. Call: Plastic Surgery at or [phone] if after hours If you have any of the following: Difficulty breathing or unusual shortness of breath Excessive bleeding, drainage at the operative site Fevers, chills, increased pain that is not relieved by pain medications Persistent nausea or vomiting Your TRAM flap turns cold and pale or blue. Worsening redness around your incisions. Follow Up Appointments: PCP: Adrián Gregory MD in about 2 weeks Plastic Surgery clinic: Dr. Carias in about 2 weeks (Sat, 06/02). Call [phone] to make an appointment. Local surgeon: Dr Parish to remove JHONATHAN drains as instructed. No cardiology follow-up needed. Follow Up Tests: (Tests at [facility] must be entered into [facility]) None Vital Signs at discharge as appropriate: BP: 101/57 mmHg (05/16/08 8:05 AM) Pulse: 80 (05/16/08 8:05 AM) Resp: 18 (05/16/08 8:05 AM) Wt - Scale: 79.2 kg (174 lb 9.7 oz) (05/16/08 6:05 AM) Discharge Patient To: Home Condition On Discharge: stable Does patient have a planned readmission: No Discharge Summary Completed: Yes Discharging Provider: Jose R Arzate MD [facility] [id number] [place] [address] Date Completed: 05/16/2008 Time Completed: 1015 Discharging Attending: Jelena Carias MD Instructions discussed with patient and written copy provided. INPATIENT NURSE ORDER FOR DISCHARGE AND INTERDISCIPLINARY INSTRUCTIONS DISCHARGE DATE: 05/16/2008 PATIENT EDUCATION: Patient given the following printed education materials JHONATHAN care at home" pmphlet given. Review with patient/family: Understanding of disease/injury/surgical repair Yes Signs/symptoms that they should report Yes Understanding of medications and side effects Yes Activity and diet instructions Yes Follow-up appointments Yes Any concerns/fears Yes Smoking Cessation Counseling/Information was given: N/A Additional Instructions: (ex: daily weights, wound care, tube feeding, trach care, CBG ludmila toring etc.) Please call your doctor if you have any questions and concerns. Personal Effects/Medications: Sent home with patient Discharged Via: Wheelchair Mode of Transportation: Car Accompanied by: Family/Responsible [employer] Name: (when applicable) Phone #: Discharge Nurse: Park Oswald Date: 05/16/2008 Discharge Time: 11:31 AM documented in this encounter Medications at Time of Discharge [...] +---------+--------+ + documented as of this encounter Progress Notes Jose R Arzate Md - 05/16/2008 11:57 AM PSTPlastic Surgery Progress Note Oxycodone is no back order. I changed oxycodone to percocet- new prescription given ndrews Md, Jose R James - 05/16/2008 7:06 AM PSTAgree with above note Flap viable Itching yesterday- better with change from keflex to clinda Sats good on RA Will d/c home today To see PMD for metoprolol management Drains to be managed by a local surgeon Discussed with Dr. Carias Vidal Horta - 2008 7:06 AM PST INPATIENT PROGRESS NOTE Hospital Day:5 Author; Vidal Smith Attending Physician: Jelena Carias MD Interval Hx: Pruritis yesterday now resolved with Benadryl, pain well controlled, satting 92-94 RA. Physical Exam: Last Vitals: BP 114/74 | Pulse 63 | Temp 36.7 C (98.1 F) | Resp 18 | Ht 1.575 m (5' 2") | Wt 79.2 kg (174 lb 9.7 oz) | SpO2 93% O2 Delivery Device: None (room air) (05/16/08 5:15 AM) 24 Hour Vital Min/Max: Systolic (24hrs), Av mmHg, Min:94 mmHg, Max:114 mmHg Diastolic (24hrs), Av mmHg, Min:55 mmHg, Max:74 mmHg Pulse Av.7 Min: 63 Max: 94 Temp Av.9 C (98.4 F) Min: 36.7 C (98.1 F) Max: 37.1 C (98.8 F) Resp Av.0 Min: 16 Max: 18 SpO2 Av.3 % Min: 92 % Max: 94 % Intake/Output Summary (Last 24 hours) at 05/16 07 Last data filed at 05/16 0515 Gross per 24 hour Intake 2035 ml Output 2320 ml Net -285 ml Drains: L abd 10, R abd 40, R breast 45 Gen: A&O, NAD Breast: TRAM flap healing well, C/D/I, great cap refill Abd: some erythema around umbilicus, healing well, C/D/I Assessment and Plan: 58 y.o. F POD#4 s/p right breast reconstruction with left sided pedicled TRAM flap. - satting well on RA - cont Keflex - cont PO pain meds -ambulate, forward flexed - will d/c to home today - no f/u appt with cards needed 1 0:32 AM Preeti Waterman, Jose R James - 05/15/2008 6:54 AM PSTReviewed above note No SOB Sat's now 93% on RA Plan to remove Rt Abd drain this am and likely Lt tomorrow Likely d/c home tomorrow Keflex idal Smith - 05/15/2008 6:54 AM PST INPATIENT PROGRESS NOTE Hospital Day:4 Author; Vidal Smith Attending Physician: Jelena Carias MD Interval Hx: - still mildly SOB on RA, but eating, has had BM, pain controlled, on PO meds, no IV lines Physical Exam: Last Vitals: BP 101/58 | Pulse 91 | Temp 37.1 C (98.8 F) | Resp 16 | Ht 1.575 m (5' 2") | Wt 79 kg (174 lb 2.6 oz) | SpO2 94% O2 Delivery Device: Nasal cannula (05/15/08 4 :23 AM) 24 Hour Vital Min/Max: Systolic (24hrs), Av mmHg, Min:93 mmHg, Max:118 mmHg Diastolic (24hrs), Av mmHg, Min:58 mmHg, Max:69 mmHg Pulse Av.0 Min: 67 Max: 95 Temp Av C (98.6 F) Min: 36.8 C (98.2 F) Max: 37.1 C (98.8 F) Resp Av.0 Min: 16 Max: 16 SpO2 Av.7 % Min: 92 % Max: 95 % Intake/Output Summary (Last 24 hours) at 05/15 0654 Last data filed at 05/15 0600 Gross per 24 hour Intake 1310 ml Output 1120 ml Net 190 ml Gen: A&O, NAD Chest: flap with good cap refill, no hemotomas Drains: fluid serosaginous Abd: incision with some erythema but stable, umbilicus still ecchymotic w/ surrounding mild erythema Assessment and Plan: 58 y.o. F POD#3 s/p right breast reconstruction with left sided pedicled TRAM flap - d/c Rt abd JHONATHAN -Flap healthy, continue to monitor -Monitor umbilicus - D/c O2 NC - cont Keflex - cont PO pain meds -ambulate, forward flexed - likely d/c to home tomorrow Jelena Barrett MD - 05/14/2008 5:48 PM PST Plastics Staff Stress test ok Last Vitals: BP 118/62 | Pulse 95 | Temp 36.8 C (98.2 F) | Resp 16 | Ht 1.575 m (5' 2") | Wt 79 kg (174 lb 2.6 oz) | SpO2 92% Pulse Av.0 Min: 93 Max: 106 Temp Av.8 C (98.3 F) Min: 36.3 C (97.3 F) Max: 37.1 C (98.8 F) Resp Av.4 Min: 16 Max: 18 SpO2 Av.0 % Min: 92 % Max: 95 % Intake/Output Summary (Last 24 hours) at 05/14 1751 Last data filed at 05/14 1600 Gross per 24 hour Intake 1460 ml Output 2238 ml Net -778 ml Flap looks good. Umbilicus still compromised. There is mild erythema of the periumbilical and lower abdominal wall. Continue antibiotis - will change to PO as she lost her IV. If erythema gets worse, she wi ll need a new IV and to restart her iv abx. Will work on pain control and mobilityBienvenido brown signed by Jelena Carias MD at 05/14/2008 5:52 PM PSTNani Gould (Quoc) - 05/14/2008 4:02 PM PSTAt 13:10, prior to beginning the procedure the team paused to verify the patients identity as well as the procedure to be performed. All the equipment required was ready and available. The following team members were present during the team pause Geovanny Abernathy MD, Quoc Gould RN. Nuclear-Dipyridamole stress completed. Final report to follow. Jacob Cardona MD - 05/14/2008 6:16 AM PSTAgree with MS4 note. S: NPO w/IVF o/n pending dipyridimole stress today with Cards. No CP, palp, SOB. Still mackey s O2 by nasal cannula, though sats in 90s. Pain better controlled. +ambulating. Chapman d/c' d, +urinating on own. No BM yet. O: no distress. TRAM flap healthy, pink, good cap refill, viable. Abdominal incision c/d/i. Umbilicus still dusky w/crusting inferiorly & mild surroundi ng blanching erythema, unchanged. Wearing abd binder. JP1L abd - 28 w/ SSO JP2 R breast - 45 w/ SSO JP3 R abd - 70 w/ SSO A/P: POD#3 R pedicled TRAM complicated by post-op EKG changes -Cont metoprolol 12.5mg Q6H -Dipyridimole stress test today -Resume regular diet after stress test -Wean ANNEALING FURNACE OPERATOR after stress test -cont ambulation, forward-flexed -bowel regimen: Add dulcolax suppository. If still not having BM, will add mag citrate. Vidal Horta - 04/17 6:16 AM PST INPATIENT PROGRESS NOTE Hospital Day:3 Author; Vidal Smith Attending Physician: Jelena Carias MD Interval Hx: - No overnight events - ambulating to bathroom - pain well controlled Physical Exam: Last Vitals: BP 99/55 | Pulse 95 | Temp 36.3 C (97.3 F) | Resp 16 | Ht 1.575 m (5' 2") | Wt 79 kg (174 lb 2.6 oz) | SpO2 95% O2 Delivery Device: Nasal cannula (05/14/08 4: 20 AM) 24 Hour Vital Min/Max: Systolic (24hrs), Av mmHg, Min:93 mmHg, Max:111 mmHg Diastolic (24hrs), Av mmHg, Min:55 mmHg, Max:69 mmHg Pulse Av.3 Min: 95 Max: 106 Temp Av.8 C (98.3 F) Min: 36.3 C (97.3 F) Max: 37.3 C (99.1 F) Resp Av.3 Min: 16 Max: 18 SpO2 Av.7 % Min: 94 % Max: 95 % Intake/Output Summary (Last 24 hours) at 05/14 06 Last data filed at 05/14 0606 Gross per 24 hour Intake 2035 ml Output 2543 ml Net -508 ml L abd JHONATHAN: 45 R breast JHONATHAN: 40 R abd JHONATHAN: 65 General Appearance: no distress Chest: R TRAM flap healthy, WWP, good cap refill, pink Abdomen: inc c/d/i. Umbilicus slightly ecchymotic w/surrounding mild erythema All JPs with serosanguinous output Assessment and Plan: 58 y.o. F POD#3 s/p right breast reconstruction with left sided pedicled TRAM flap -Flap healthy, continue to monitor -Monitor umbilicus - Wean NC - Switch to PO pain meds after stress test today - D/c ANNEALING FURNACE OPERATOR -Per Cards: Dipyridimole stress test today -Pain: oxycodone, flexeril -ambulate, forward flexed -IVF: on maintanence as currently NPOElectronically signed by Ibis Nelson MD at 04/17 7:56 AM Jelena Barrett MD - 05/13/2008 8:37 AM PSTPlastics Staff POD#2 Pain better controlled Flap looks good - warm, well perfused. No evidence of hematoma. Abdominal donor site flat, no hematoma. Umbilicus appears ischemic with discoloration and superficial necrosis. Lower abdominal suture line intact with healthy skin flap. Cardiac workup in progress - possible echo and stress test tomorrow Will continue to work on pain control and mobility. She is still requiring ANNEALING FURNACE OPERATOR. Chapman out when she is more mobile. Awaiting further recommendations from Cardiology. Bacitracin ointment to umbilicus. Ibis Cardona MD - 05/13/2008 6:10 AM PST Plastic Surgery [facility] Hospital Day:2 Author; IBIS NELSON MD Attending Physician: Jelena Carias MD Interval Hx: ambulated x2 yesterday. O2 sats down to low 90s% w/ambulation. Pain better co ntrolled w/ANNEALING FURNACE OPERATOR. No CP/dyspnea. anastrozole (aka ARIMIDEX) tablet 1 mg, 1 mg, Oral, DAILY aspirin tablet 325 mg, 325 mg, Oral, DAILY calcium carbonate chewable (aka TUMS) tablet 500-1,000 mg, 500-1000 mg, Oral, EVERY 8 HOURS NEEDED calcium-vitamin D (aka OS-MERCY 500 + D) 500 (1,250)-200 mg-unit 1 Tab, 1 Tab, Oral, TWICE DA SINDI ceFAZolin (aka ANCEF) injection 1 g, 1 g, Intravenous, EVERY 8 HOURS cyclobenzaprine (aka FLEXERIL) tablet 5 mg, 5 mg, Oral, THREE TIMES DAILY NEEDED dextrose 5%-NaCl 0.9%-KCl 20 mEq/L IV, , Intravenous, CONTINUOUS fluoxetine (aka PROZAC) capsule 20 mg, 20 mg, Oral, DAILY gabapentin (aka NEURONTIN) capsule 300 mg, 300 mg, Oral, THREE TIMES DAILY HYDROmorphone 0.5 mg/mL ANNEALING FURNACE OPERATOR infusion (ADULT, Pyxis) , , Intravenous, CONTINUOUS lansoprazole (aka PREVACID) capsule 15 mg, 15 mg, Oral, DAILY metoprolol tartrate (aka LOPRESSOR) dose 12.5 mg, 12.5 mg, Oral, EVERY 6 HOURS multivitamin-minerals 1 Tab, 1 Tab, Oral, DAILY naloxone (aka NARCAN) injection, , Intravenous, NEEDED oxycodone immediate release (aka ROXICODONE) tablet 5-25 mg, 5-25 mg, Oral, EVERY 4 HOURS A S NEEDED potassium chloride SR (aka K-DUR) tablet 20 mEq, 20 mEq, Oral, TWICE DAILY rosuvastatin (aka CRESTOR) tablet 20 mg, 20 mg, Oral, DAILY senna-docusate (aka SENOKOT S) 8.6-50 mg 1 Tab, 1 Tab, Oral, TWICE DAILY spironolactone (aka ALDACTONE) tablet 25 mg, 25 mg, Oral, DAILY valsartan (aka DIOVAN) tablet 40 mg, 40 mg, Oral, DAILY Physical Exam: Last Vitals: BP 112/73 | Pulse 106 | Temp 36.8 C (98.2 F) | Resp 16 | Ht 1.575 m (5' 2" ) | Wt 79 kg (174 lb 2.6 oz) | SpO2 94% 24 Hour Vital Min/Max: Systolic (24hrs), Av mmHg, Min:95 mmHg, Max:112 mmHg Diastolic (24hrs), Av mmHg, Min:59 mmHg, Max:75 mmHg Pulse Av.7 Min: 101 Max: 109 Temp Av.7 C (98.1 F) Min: 36.1 C (97 F) Max: 36.9 C (98.4 F) Resp Av.0 Min: 16 Max: 18 SpO2 Av.8 % Min: 91 % Max: 96 % Intake/Output Summary (Last 24 hours) at 05/13 0610 Last data filed at 05/13 0500 Gross per 24 hour Intake 3425 ml Output 1195 ml Net 2230 ml JP1L abd - 40 JP2 R breast - 60 JP3 R abd - 45 General Appearance: no distress Chest: R TRAM flap healthy, well perfused, good cap refill, pink Abdomen: inc c/d/i. Umbilicus slightly ecchymotic w/surrounding mild erythema All JPs with serosanguinous output Labs: Chemistries: Last 72 Hours (or 3 results): Recent Labs Basename 05/11/08 1447 05/11/08 1441 NA -- 140 K -- 4.3 CL -- 112* BICARB -- 22* BUN -- 13 CR -- 0.74 CA -- 8.0* MG Combined. 1.5* PO4 Combined. 4.7 CBC with diff last 72 hours (or 3 results) Recent Labs Basename 05/11/08 1447 WBC 13.8* HB 11.2* HCT 32.8* PLT 203 NEUTROPERC -- BANDPCT -- LYMPHPERC -- MONOPERC -- BASOPERC -- EOSPERC -- Assessment and Plan: 58 y.o. F POD#2 s/p right breast reconstruction with left sided pedicled TRAM flap -Flap healthy, continue to monitor -Monitor umbilicus -Per Cards: Dipyridimole stress test Saturday. Orders written for NPO at [place] w/IVF. No caff einated/non-caffeinated coffee/sodas or chocolate. 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 Vidal Horta - 05/12/2008 6:22 AM PSTFormatting of this not e might be different from the original. INPATIENT PROGRESS NOTE Hospital Day:1 Author; Vidal Smith Attending Physician: Jelena Carias MD Interval Hx: - Doing well, mild suprasternal pain from TRAM tunnel, and L abd incision pain, but tollera ble with meds - No CP, SOB, diaphoresis Physical Exam: Last Vitals: BP 98/61 | Pulse 101 | Temp 36.7 C (98.1 F) | Resp 18 | Ht 1.575 m (5' 2") | Wt 79 kg (174 lb 2.6 oz) | SpO2 96% O2 Delivery Device: Nasal cannula (05/12/08 4 :30 AM) 24 Hour Vital Min/Max: Systolic (24hrs), Av mmHg, Min:86 mmHg, Max:121 mmHg Diastolic (24hrs), Av mmHg, Min:49 mmHg, Max:74 mmHg Pulse Av.1 Min: 89 Max: 132 Temp Av.8 C (98.2 F) Min: 36.5 C (97.7 F) Max: 37.2 C (99 F) Resp Av.2 Min: 11 Max: 18 SpO2 Av.3 % Min: 87 % Max: 100 % Intake/Output Summary (Last 24 hours) at 05/12 0622 Last data filed at 05/12 0600 Gross per 24 hour Intake 5060 ml Output 1875 ml Net 3185 ml JHONATHAN output 150cc Trop 0.03>0.06>0.04 Assessment and Plan: 58yo F POD1 s/p R TRAM breast reconstruction. - Cardiac: transient LBBB on EKG rate induced per cards and not concerning, trop series wnl - Pain: Dilaudid 0.5mg IV q2h prn, Oxycodone 5-25mg PO q4h prn - Ab: Ancef 1g q8h - ADAT - Chapman catheter in place - Will ambulate today Ibis Cardona MD - 05/12/2008 6:10 AM PST [facility] Hospital Day:1 Author; IBIS NELSON MD Attending Physician: Jelena Carias MD Interval Hx: serial troponins done, Cards consulted for abnormal EKG immediately post-op, c onverted to NSR. S: c/o sharp pain over medial R breast & heartburn. Not OOB yet. anastrozole (aka ARIMIDEX) tablet 1 mg, 1 mg, Oral, DAILY aspirin tablet 325 mg, 325 mg, Oral, DAILY calcium-vitamin D (aka OS-MERCY 500 + D) 500 (1,250)-200 mg-unit 1 Tab, 1 Tab, Oral, TWICE DA SINDI ceFAZolin (aka ANCEF) injection 1 g, 1 g, Intravenous, EVERY 8 HOURS cyclobenzaprine (aka FLEXERIL) tablet 5 mg, 5 mg, Oral, THREE TIMES DAILY NEEDED dextrose 5%-NaCl 0.9%-KCl 20 mEq/L IV, , Intravenous, CONTINUOUS fluoxetine (aka PROZAC) capsule 20 mg, 20 mg, Oral, DAILY gabapentin (aka NEURONTIN) capsule 300 mg, 300 mg, Oral, THREE TIMES DAILY HYDROmorphone (aka DILAUDID) injection 0.5 mg, 0.5 mg, Intravenous, EVERY 2 HOURS NEEDED lansoprazole (aka PREVACID) capsule 15 mg, 15 mg, Oral, DAILY metoprolol (aka LOPRESSOR) injection 5 mg, 5 mg, Intravenous, EVERY 6 HOURS NEEDED multivitamin-minerals 1 Tab, 1 Tab, Oral, DAILY oxycodone immediate release (aka ROXICODONE) tablet 5-25 mg, 5-25 mg, Oral, EVERY 4 HOURS A S NEEDED potassium chloride SR (aka K-DUR) tablet 20 mEq, 20 mEq, Oral, TWICE DAILY rosuvastatin (aka CRESTOR) tablet 20 mg, 20 mg, Oral, DAILY senna-docusate (aka SENOKOT S) 8.6-50 mg 1 Tab, 1 Tab, Oral, TWICE DAILY spironolactone (aka ALDACTONE) tablet 25 mg, 25 mg, Oral, DAILY valsartan (aka DIOVAN) tablet 40 mg, 40 mg, Oral, DAILY Physical Exam: Last Vitals: BP 106/59 | Pulse 107 | Temp 36.9 C (98.4 F) | Resp 18 | Ht 1.575 m (5' 2" ) | Wt 79 kg (174 lb 2.6 oz) | SpO2 96% 24 Hour Vital Min/Max: Systolic (24hrs), Av mmHg, Min:86 mmHg, Max:121 mmHg Diastolic (24hrs), Av mmHg, Min:49 mmHg, Max:74 mmHg Pulse Av.2 Min: 89 Max: 132 Temp Av.8 C (98.2 F) Min: 36.5 C (97.7 F) Max: 37.2 C (99 F) Resp Av.4 Min: 11 Max: 18 SpO2 Av.2 % Min: 87 % Max: 100 % Intake/Output Summary (Last 24 hours) at 05/12 0757 Last data filed at 05/12 0700 Gross per 24 hour Intake 5460 ml Output 1875 ml Net 3585 ml JP1L abd - 45 JP2 R breast - 55 JP3 R abd - 50 General Appearance: no distress Chest: R TRAM flap healthy, well perfused, good cap refill, pink Abdomen: dressings dry & intact. Umbilicus intact, pink. No hematomas. All JPs with serosanguinous output Labs: Chemistries: Last 72 Hours (or 3 results): Recent Labs Basename 05/11/08 1447 05/11/08 1441 NA -- 140 K -- 4.3 CL -- 112* BICARB -- 22* BUN -- 13 CR -- 0.74 CA -- 8.0* MG Combined. 1.5* PO4 Combined. 4.7 CBC with diff last 72 hours (or 3 results) Recent Labs Basename 05/11/08 1447 WBC 13.8* HB 11.2* HCT 32.8* PLT 203 NEUTROPERC -- BANDPCT -- LYMPHPERC -- MONOPERC -- BASOPERC -- EOSPERC -- Troponins, last 72 hours: Recent Labs Basename 05/12/08 0324 05/11/08 2235 05/11/08 1441 TROPONIN 0.04 0.06 0.03 Assessment and Plan: 58 y.o. F POD#1 s/p right breast reconstruction with left sided pedicled TRAM flap -Flap healthy, continue to monitor -Serial troponins negative, repeat EKGs ok --> per Cards, okay to stop checking. -Pain: oxycodone, IV dilaudid -Heartburn: on prevacid, take meds with food, tums -ambulate today, forward flexed -Chapman: d/c when mobilizing -IVF: will SLIV when taking adequate PO Arjun Vieira M D - 05/11/2008 5:41 PM PSTPost op Check: Subjective: Resting comfortably, pain under control No crushing chest pain Objective: Comfortable and in no apparent distress. C: Right TRAM flap healthy, well perfused A: dressings c/d/i, flaps healthy Assessment: S/p right breast reconstruction with left sided pedicled TRAM flap Plan: 1) Cards input appreciated. Will follow troponins, first one is negative 2) Labs checked, mag replaced 3) Telemetry 4) start ambulating tomorrow Kam Copeland MD - 05/11/2008 3:16 PM PSTEkg changes at emergence from surgery with a heart rate of 136. Uneve ntful anesthetic with stable hemodynamics. Ekg gives suspicion of either ischemia or bundle branch block. After 120 mg of esmolol conv ersion to a normal looking EKG without bundle branch block configuration. Sinus rhythm. No c linical signs of ischemia. No chest pain. No SOB. No hemodynamic instablilty. In the PACU re conversion to left bundle branch block seen on a 12 lead EKG and after metoprolol 5 mg IV co nversion back to no bundle branch block and like her preop EKG. A background infusion of NTG at 0.2mcg/kg/min and aspirin 325 mg PO was given while waiting for results of the troponin s. Cardiology contacted. Asked to stop NTG. Plastic service assuming care at 15.25Electronically signed by Kam Escobar MD at 009 3:24 PM PSTdocumented in this encounter Plan of Treatment Not on filedocumented as of this encounter Procedures + +--------+ + + + | Procedure Name | Priori | Date/Time | Associated Diagnosis | Comments | | | ty | | | | + +--------+ + + + | PROCEDURE NOTE | Routin | 05/20/2015 | | Results for this | | | e | 1:58 PM | | procedure are in the | | | | PST | | results section. | + +--------+ + + + | RESP CARE THERAPY | Routin | 05/16/2008 | | Results for this | | | e | 5:53 AM | | procedure are in the | | | | PST | | results section. | + +--------+ + + + | RESP CARE THERAPY | Routin | 05/15/2008 | | Results for this | | | e | 4:20 AM | | procedure are in the | | | | PST | | results section. | + +--------+ + + + | NM MYOCARDIAL | Routin | 05/14/2008 | | Results for this | | PERFUSION (SPECT) | e | 10:46 AM | | procedure are in the | | MULTIPLE STUDIES | | PST | | results section. | | WITH EXERCISE | | | | | + +--------+ + + + | NM MYOCARDIAL | Routin | 05/14/2008 | | Results for this | | PERFUSION WITH WALL | e | 10:46 AM | | procedure are in the | | MOTION | | PST | | results section. | + +--------+ + + + | NM MYOCARDIAL | Routin | 05/14/2008 | | Results for this | | PERFUSION WITH | e | 10:46 AM | | procedure are in the | | EJECTION FRACTION | | PST | | results section. | + +--------+ + + + | RESP CARE THERAPY | Routin | 05/14/2008 | | Results for this | | | e | 2:10 AM | | procedure are in the | | | | PST | | results section. | + +--------+ + + + | CARDIAC STRESS TEST | | 05/14/2008 | | Results for this | | | | 12:00 AM | | procedure are in the | | | | PST | | results section. | + +--------+ + + + | RESP CARE THERAPY | Routin | 05/13/2008 | | Results for this | | | e | 12:45 AM | | procedure are in the | | | | PST | | results section. | + +--------+ + + + | 12 LEAD ECG | Routin | 05/12/2008 | | Results for this | | | e | 6:35 PM | | procedure are in the | | | | PST | | results section. | + +--------+ + + + | TROPONIN I, PLASMA | Urgent | 05/12/2008 | | Results for this | | | | 5:45 AM | | procedure are in the | | | | PST | | results section. | + +--------+ + + + | RESP CARE THERAPY | Routin | 05/12/2008 | | Results for this | | | e | 5:16 AM | | procedure are in the | | | | PST | | results section. | + +--------+ + + + | TROPONIN I, PLASMA | Urgent | 05/12/2008 | | Results for this | | | | 3:24 AM | | procedure are in the | | | | PST | | results section. | + +--------+ + + + | TROPONIN I, PLASMA | Urgent | 05/11/2008 | | Results for this | | | | 10:35 PM | | procedure are in the | | | | PST | | results section. | + +--------+ + + + | 12 LEAD ECG | Urgent | 05/11/2008 | | Results for this | | | | 5:11 PM | | procedure are in the | | | | PST | | results section. | + +--------+ + + + | 12 LEAD ECG | Urgent | 05/11/2008 | | Results for this | | | | 3:04 PM | | procedure are in the | | | | PST | | results section. | + +--------+ + + + | 12 LEAD ECG | Urgent | 05/11/2008 | | Results for this | | | | 2:51 PM | | procedure are in the | | | | PST | | results section. | + +--------+ + + + | TROPONIN I, PLASMA | Urgent | 05/11/2008 | | Results for this | | | | 2:47 PM | | procedure are in the | | | | PST | | results section. | + +--------+ + + + | CBC ONLY | Urgent | 05/11/2008 | | Results for this | | | | 2:47 PM | | procedure are in the | | | | PST | | results section. | + +--------+ + + + | PHOSPHORUS, PLASMA | Urgent | 05/11/2008 | | Results for this | | | | 2:47 PM | | procedure are in the | | | | PST | | results section. | + +--------+ + + + | MAGNESIUM, PLASMA | Urgent | 05/11/2008 | | Results for this | | | | 2:47 PM | | procedure are in the | | | | PST | | results section. | + +--------+ + + + | TROPONIN I, PLASMA | Urgent | 05/11/2008 | | Results for this | | | | 2:41 PM | | procedure are in the | | | | PST | | results section. | + +--------+ + + + | BASIC METABOLIC SET | Extrem | 05/11/2008 | | Results for this | | (NA, K, CL, TCO2, | e | 2:41 PM | | procedure are in the | | BUN, CR, GLU, CA) | Emerge | PST | | results section. | | | ncy | | | | + +--------+ + + + | PHOSPHORUS, PLASMA | Routin | 05/11/2008 | | Results for this | | | e | 2:41 PM | | procedure are in the | | | | PST | | results section. | + +--------+ + + + | MAGNESIUM, PLASMA | Routin | 05/11/2008 | | Results for this | | | e | 2:41 PM | | procedure are in the | | | | PST | | results section. | + +--------+ + + + | ANESTHESIA/SEDATION | | 05/11/2008 | | Results for this | | | | 12:00 AM | | procedure are in the | | | | PST | | results section. | + +--------+ + + + | OPERATION RECORD | | 05/11/2008 | | Results for this | | | | 12:00 AM | | procedure are in the | | | | PST | | results section. | + +--------+ + + + | ANESTHESIA/SEDATION | | 05/10/2008 | | Results for this | | | | 12:00 AM | | procedure are in the | | | | PST | | results section. | + +--------+ + + + documented in this encounter Results PROCEDURE NOTE (05/20/2015 1:58 PM PST)RESP CARE THERAPY (05/16/2008 5:53 AM PST) + + + + + + | Component | Value | Ref Range | Performed | Pathologist | | | | | At | Signature | + + + + + + | RESPIRATORY | Oxygen device on | | [facility] | | | CARE | standby, nasal | | RESPIRATORY | | | | canula.Electronically | | THERAPY | | | | Signed by: Maxx Parker, | | | | | | SHELL MOLDING ROLLER BLAST OPERATOR | | | | + + + + + + + + | Specimen | + + | | + + + + + | Narrative | Performed At | + + + | Ordered by JELENA CARIAS | [facility] | | | RESPIRATORY | | | THERAPY | + + + + + + + + | Performing | Address | City/State/Zipcode | Phone Number | | Organization | | | | + + + + + | [facility] | [address] | [place], [place] | | | THERAPY | [facility] | [address] | | + + + + + | [facility] | [address] [facility] [address] [address] [address] | [place], [place] | | | THERAPY | [facility] | [phone] | | + + + + + RESP CARE THERAPY (05/15/2008 4:20 AM PST) + + + + + + | Component | Value | Ref Range | Performed | Pathologist | | | | | At | Signature | + + + + + + | RESPIRATORY | Nasal cannula at 2 | | [facility] | | | CARE | LPM.Electronically | | RESPIRATORY | | | | Signed by: Jere | | THERAPY | | | | Abelardo, | | | | + + + + + + + + | Specimen | + + | | + + + + + | Narrative | Performed At | + + + | Ordered by JELENA CARIAS | [facility] | | | RESPIRATORY | | | THERAPY | + + + + + + + + | Performing | Address | City/State/Zipcode | Phone Number | | Organization | | | | + + + + + | [facility] | [address] | [place], [place] | | | THERAPY | [address] | [address] | | + + + + + | [facility] | [address] | [place], [place] | | | THERAPY | [address] | [address] | | + + + + + NM MYOCARDIAL PERFUSION WITH WALL MOTION (05/14/2008 10:46 AM PST) + + + + + + | Component | Value | Ref Range | Performed | Pathologist | | | | | At | Signature | + + + + + + | NM MYOCARD | Nuclear Medicine | | | | | PERF W WALL | MYOCARDIAL PERFUSION | | | | | MOTN | with | | | | | | DIPYRIDAMOLE/EXERCISESES | | | | | | TAMIBICOMPARISON | | | | | | STUDIES: | | | | | | None.INDICATION: | | | | | | Coronary artery | | | | | | disease.TECHNIQUE: Th | | | | | | e rest portion was done | | | | | | first. The patient | | | | | | wasinjected with 10.3 | | | | | | mCi Tc 99m sestamibi and | | | | | | gated SPECT imaging | | | | | | wasacquired one hour | | | | | | later.Stress portion was | | | | | | performed under the | | | | | | supervision of | | | | | | cardiology,documented by | | | | | | them. 25.7 mCi | | | | | | sestamibi was injected | | | | | | at | | | | | | peakexercise. Gated | | | | | | SPECT was acquired one | | | | | | hour after | | | | | | exercise.FINDINGS:There | | | | | | is no fixed or | | | | | | reversible myocardial | | | | | | defect. Normal | | | | | | myocardialbrightening | | | | | | and wall motion is | | | | | | seen. Left | | | | | | ventricular | | | | | | ejectionfraction is | | | | | | estimated at | | | | | | 65%.IMPRESSION:Normal | | | | | | myocardial perfusion | | | | | | study.LVEF is estimated | | | | | | to be 65%.This study | | | | | | was interpreted with | | | | | | linoleum installer Dr. Clark | | | | | | Ragini.I have personally | | | | | | viewed this | | | | | | procedure/exam and | | | | | | reviewed this | | | | | | report.Author: KEATON | | | | | | Josephine TATEReviewer: | | | | | | HARSH SINGH JR., | | | | | | JosephineSTATUS FINAL / | | | | | | HARSH YE | | | | | | PENDING FINAL APPROVAL / | | | | | | Dr. KEATON VALDES | | | | | | PRELIMINARY - UNSIGNED | | | | | | / Dr. KEATON AKERS | | | | + + + + + + + + | Specimen | + + | | + + + +---------+ + + | Performing | Address | City/State/Zipcode | Phone Number | | Organization | | | | + +---------+ + + | [facility] | | | | | RADIOLOGY | | | | + +---------+ + + NM MYOCARDIAL PERFUSION WITH EJECTION FRACTURE (05/14/2008 10:46 AM PST) + + + + + + | Component | Value | Ref Range | Performed | Pathologist | | | | | At | Signature | + + + + + + | NM MYOCARD | Nuclear Medicine | | | | | PERF W | MYOCARDIAL PERFUSION | | | | | EJECT FRAC | with | | | | | | DIPYRIDAMOLE/EXERCISESES | | | | | | TAMIBICOMPARISON | | | | | | STUDIES: | | | | | | None.INDICATION: | | | | | | Coronary artery | | | | | | disease.TECHNIQUE: Th | | | | | | e rest portion was done | | | | | | first. The patient | | | | | | wasinjected with 10.3 | | | | | | mCi Tc 99m sestamibi and | | | | | | gated SPECT imaging | | | | | | wasacquired one hour | | | | | | later.Stress portion was | | | | | | performed under the | | | | | | supervision of | | | | | | cardiology,documented by | | | | | | them. 25.7 mCi | | | | | | sestamibi was injected | | | | | | at | | | | | | peakexercise. Gated | | | | | | SPECT was acquired one | | | | | | hour after | | | | | | exercise.FINDINGS:There | | | | | | is no fixed or | | | | | | reversible myocardial | | | | | | defect. Normal | | | | | | myocardialbrightening | | | | | | and wall motion is | | | | | | seen. Left | | | | | | ventricular | | | | | | ejectionfraction is | | | | | | estimated at | | | | | | 65%.IMPRESSION:Normal | | | | | | myocardial perfusion | | | | | | study.LVEF is estimated | | | | | | to be 65%.This study | | | | | | was interpreted with | | | | | | linoleum installer Dr. Clark | | | | | | Ragini.I have personally | | | | | | viewed this | | | | | | procedure/exam and | | | | | | reviewed this | | | | | | report.Author: KEATON | | | | | | Josephine TATEReviewer: | | | | | | HARSH SINGH JR., | | | | | | JosephineSTATUS FINAL / | | | | | | HARSH YE | | | | | | PENDING FINAL APPROVAL / | | | | | | Dr. KEATON VALDES | | | | | | PRELIMINARY - UNSIGNED | | | | | | / Dr. KEATON AKERS | | | | + + + + + + + + | Specimen | + + | | + + + +---------+ + + | Performing | Address | City/State/[facility] | Phone Number | | Organization | | | | + +---------+ + + | [facility] DEPARTMENT OF | | | | | RADIOLOGY | | | | + +---------+ + + NM MYOCARDIAL PERFUSION (SPECT) MULTIPLE STUDIES WITH EXERCISE (05/14/2008 10:46 AM PST) + + + + + + | Component | Value | Ref Range | Performed | Pathologist | | | | | At | Signature | + + + + + + | NM MYOCARD | Nuclear Medicine | | | | | PRF ECT | MYOCARDIAL PERFUSION | | | | | S/RST EXER | with | | | | | | DIPYRIDAMOLE/EXERCISESES | | | | | | TAMIBICOMPARISON | | | | | | STUDIES: | | | | | | None.INDICATION: | | | | | | Coronary artery | | | | | | disease.TECHNIQUE: Th | | | | | | e rest portion was done | | | | | | first. The patient | | | | | | wasinjected with 10.3 | | | | | | mCi Tc 99m sestamibi and | | | | | | gated SPECT imaging | | | | | | wasacquired one hour | | | | | | later.Stress portion was | | | | | | performed under the | | | | | | supervision of | | | | | | cardiology,documented by | | | | | | them. 25.7 mCi | | | | | | sestamibi was injected | | | | | | at | | | | | | peakexercise. Gated | | | | | | SPECT was acquired one | | | | | | hour after | | | | | | exercise.FINDINGS:There | | | | | | is no fixed or | | | | | | reversible myocardial | | | | | | defect. Normal | | | | | | myocardialbrightening | | | | | | and wall motion is | | | | | | seen. Left | | | | | | ventricular | | | | | | ejectionfraction is | | | | | | estimated at | | | | | | 65%.IMPRESSION:Normal | | | | | | myocardial perfusion | | | | | | study.LVEF is estimated | | | | | | to be 65%.This study | | | | | | was interpreted with | | | | | | linoleum installer Dr. Clark | | | | | | Ragini.I have personally | | | | | | viewed this | | | | | | procedure/exam and | | | | | | reviewed this | | | | | | report.Author: KEATON | | | | | | Josephine TATEReviewer: | | | | | | HARSH SINGH JR., | | | | | | MJasenSTATUS FINAL / | | | | | | HARSH YE | | | | | | PENDING FINAL APPROVAL / | | | | | | Dr. KEATON VALDES | | | | | | PRELIMINARY - UNSIGNED | | | | | | / Dr. KEATON AKERS | | | | + + + + + + + + | Specimen | + + | | + + + +---------+ + + | Performing | Address | City/State/Zipcode | Phone Number | | Organization | | | | + +---------+ + + | [facility] | | | | | RADIOLOGY | | | | + +---------+ + + RESP CARE THERAPY (05/14/2008 2:10 AM PST) + + + + + + | Component | Value | Ref Range | Performed | Pathologist | | | | | At | Signature | + + + + + + | RESPIRATORY | Nasal cannula at 4 | | [facility] | | | CARE | LPM.Electronically | | RESPIRATORY | | | | Signed by: Taizz | | THERAPY | | | | Medalia, SHELL MOLDING ROLLER BLAST OPERATOR | | | | + + + + + + + + | Specimen | + + | | + + + + + | Narrative | Performed At | + + + | Ordered by JELENA CARIAS | [facility] | | | RESPIRATORY | | | THERAPY | + + + + + + + + | Performing | Address | City/State/Zipcode | Phone Number | | Organization | | | | + + + + + | [facility] | [address] | [place], [place] | | | THERAPY | [address] | [address] | | + + + + + | [facility] | [address] [facility] | [place], [place] | | | THERAPY | [address] | [address] | | + + + + + CARDIAC STRESS TEST (05/14/2008 12:00 AM PST) + + + | Narrative | Performed At | + + + | | | | [id number] | | | 05/14/2008 [id number] | | | [id number] LEONARDO PERRY | | | [id number] Clinic Date: 05/14/2008 | | | REFERRING PHYSICIAN: TRISHA Whitaker PATIENT'S | | | AGE 58 SEX: F Weight: 79 kg. | | | DIAGNOSIS: Abnormal EKG, Breast Cancer, Pre-Op Evaluation | | | REASON FOR TEST: Detection of Myocardial Ischemia (R/O CAD) | | | PROTOCOL: Dipyridamole Infusion (0.56 mg/kg over 4 | | | minutes ) Total 45 mg. IMPRESSION: Baseline ECG: Rhythm: | | | Sinus, rate 96 bpm; Intervals: WA: 174, QRS 72, QT 324; | | | QRS [place] 67. Delayed precordial R-wave transition due to | | | lead/heart position vs septal CO. No arrhythmias noted during | | | dipyridamole. No ST segment change noted during dipyridamole. | | | Physician staffing test: Thanh Abernathy M.D. END OF | | | IMPRESSION: Michael Wang M.D./demetrio D: | | | 05/27/2008 P cc: | | + + + + + | Procedure Note | + + | Michael Wang MD - 05/14/2008 12:00 AM PST [id number] | | 05/14/2008 [id number] LEONARDO Cardenas | | [phone] [id number] Clinic Date: 05/14/2008 REFERRING PHYSICIAN: TRISHA Whitaker | | PATIENT'S AGE 58 SEX: F Weight: 79 kg. DIAGNOSIS: Abnormal EKG, | | Breast Cancer, Pre-Op Evaluation REASON FOR TEST: Detection of Myocardial Ischemia | | (R/O CAD) PROTOCOL: Dipyridamole Infusion (0.56 mg/kg over 4 minutes ) Total 45 mg. | | IMPRESSION:Baseline ECG: Rhythm: Sinus, rate 96 bpm; Intervals: WA: 174, QRS 72, | | QT324; QRS [place] 67. Delayed precordial R-wave transition due to lead/heartposition | | vs septal CO.No arrhythmias noted during dipyridamole.No ST segment change noted during | | dipyridamole. Physician staffing test: Thanh Abernathy M.D. END OF IMPRESSION: | | Michael Wang M.D./jazmindD: 05/27/2008T: 05/27/2008 4:10 P cc: | | | | | |DIAGNOSIS: Abnormal EKG, Breast Cancer, Pre-Op Evaluation | | | | | |REASON FOR TEST: Detection of Myocardial Ischemia (R/O CAD) | | | | | | | | | |PROTOCOL: Dipyridamole Infusion (0.56 mg/kg over 4 minutes ) Total 45 mg. | | | | | | | |IMPRESSION: | |Baseline ECG: Rhythm: Sinus, rate 96 bpm; Intervals: WA: 174, QRS 72, QT | |324; QRS [place] 67. Delayed precordial R-wave transition due to lead/heart | |position vs septal CO. | | | |No arrhythmias noted during dipyridamole. | | | |No ST segment change noted during dipyridamole. | | | | | |Physician staffing test: Thanh Abernathy M.D. 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 | | | | + + + + + + + + | Specimen | + + | | + + + + + | Narrative | Performed At | + + + | Ordered by JELENA CARIAS | [facility] | | | RESPIRATORY | | | THERAPY | + + + + + + + + | Performing | Address | City/State/Zipcode | Phone Number | | Organization | | | | + + + + + | [facility] | [address] | [place], [place] | | | THERAPY | [facility] | [address] | | + + + + + | [facility] | [address] | [place], [place] | | | THERAPY | [facility] | [address] | | + + + + + 12 LEAD ECG (05/12/2008 6:35 PM PST) + + + + + + | Component | Value | Ref Range | Performed | Pathologist | | | | | At | Signature | + + + + + + | VENTRICULAR | 105 | BPM | [facility] | | | RATE | | | OF | | | | | | CARDIOLOGY | | + + + + + + | ATRIAL RATE | 105 | BPM | [facility] | | [...] + + + + | QT | 318 | ms | [facility] | | | | | | OF | | | | | | CARDIOLOGY | | + + + + + + | QTC | 420 | ms | [facility] | | | | | | OF | | | | | | CARDIOLOGY | | + + + + + + | P AXIS | 46 | degrees | [facility] | | | | | | OF | | | | | | CARDIOLOGY | | + + + + + + | R AXIS | 14 | degrees | [facility] | | | | | | OF | | | | | | CARDIOLOGY | | + + + + + + | T AXIS | 37 | degrees | [facility] | | | | | | OF | | | | | | CARDIOLOGY | | + + + + + + | EKG | Sinus | | [facility] | | | DIAGNOSIS | tachycardiaAnteroseptal | | OF | | | | infarct , age | | CARDIOLOGY | | | | undeterminedAbnormal | | | | | | ECG"I have personally | | | | | | interpreted this report, | | | | | | either alone or with a | | | | | | trainee."Confirmed by | | | | | | ELSIE ZHANG ([id number]) on | | | | | | 24-May-2008 12:24:55 | | | | + + + [...] Performed At | + + + | Ordered by an | [facility] | | unspecified provider. Please click on view image for the detailed | CARDIOLOGY | | interpretation from [employer] results. | | |results. | | | | | + + + + + + + + | Performing | Address | City/State/Zipcode | Phone Number | | Organization | | | | + + + + + | [facility] | [address] | [place], [place] | | | CARDIOLOGY | [address] | [address] | | + + + + + | [facility] | [address] | [place], [place] | | | CARDIOLOGY | [address] | [address] | | + + + + + TROPONIN I, PLASMA (05/12/2008 5:45 AM PST) + +-------+ + + + | Component | Value | Ref Range | Performed | Pathologist | | | | | At | Signature | + +-------+ + + + | TROPONIN I | 0.06 | <0.50 ng/mL | [facility] | | | | | [...] | + + + + + | [facility] | [address] | [place] [address] | | | PATHOLOGY | [address] | | | + + + + + | [facility] | [address] | [place] [address] | | | PATHOLOGY | [address] | | | + + + + + RESP CARE THERAPY (05/12/2008 5:16 AM PST) + + + + + + | Component | Value | Ref Range | Performed | Pathologist | | | | | At | Signature | + + + + + + | RESPIRATORY | Nasal cannula at 4 | | [facility] | | | CARE | LPM.Electronically | | RESPIRATORY | | | | Signed by: Jose | | THERAPY | | | | Donita, | | | | + + + + + + + + | Specimen | + + | | + + + + + | Narrative | Performed At | + + + | Ordered by JELENA CARIAS | [facility] | | | [facility] | | | THERAPY | + + + + + + + + | Performing | Address | City/State/Zipcode | Phone Number | | Organization | | | | + + + + + | [facility] | [address] | [place], [place] | | | THERAPY | [address] | [address] | | + + + + + | [facility] | [address] | [place], [place] | | | THERAPY | [facility] | [address] | | + + + + + TROPONIN I, PLASMA (05/12/2008 3:24 AM PST) + +-------+ + + + | Component | Value | Ref Range | Performed | Pathologist | | | | | At | Signature | + +-------+ + + + | TROPONIN I | 0.04 | <0.50 ng/mL | [facility] | | | | | [...] | + + + + + | [facility] | [address] | [place] [address] | | | PATHOLOGY | [address] | | | + + + + + | [facility] | [address] | [place] [address] | | | PATHOLOGY | [address] | | | + + + + + TROPONIN I, PLASMA (05/11/2008 10:35 PM PST) + +-------+ + + + | Component | Value | Ref Range | Performed | Pathologist | | | | | At | Signature | + +-------+ + + + | TROPONIN I | 0.06 | <0.50 ng/mL | [facility] | | | | | [...] | + + + + + | [facility] | [address] | [place] [address] | | | PATHOLOGY | [address] | | | + + + + + | [facility] | [facility] | [place] [address] | | | PATHOLOGY | [address] | | | + + + + + 12 LEAD ECG (05/11/2008 5:11 PM PST) + + + + + + | Component | Value | Ref Range | Performed | Pathologist | | | | | At | Signature | + + + + + + | VENTRICULAR | 98 | BPM | [facility] | | | RATE | | | OF | | | | | | CARDIOLOGY | | + + + + + + | ATRIAL RATE | 98 | BPM | [facility] | | | | | | OF | | | | | | CARDIOLOGY | | + + + + + + | P-R | 172 | ms | [facility] | | | INTERVAL | | | OF | | | | | | CARDIOLOGY | | + + + + + + | QRS | 82 | ms | [facility] | | | DURATION | | | OF | | | | | | CARDIOLOGY | | + + + + + + | QT | 376 | ms | [facility] | | | | | | OF | | | | | | CARDIOLOGY | | + + + + + + | QTC | 480 | ms | [facility] | | | | | | OF | | | | | | CARDIOLOGY | | + + + + + + | P AXIS | 46 | degrees | [facility] | | | | | | OF | | | | | | CARDIOLOGY | | + + + + + + | R AXIS | 25 | degrees | [facility] | | | | | | OF | | | | | | CARDIOLOGY | | + + + + + + | T AXIS | 35 | degrees | [facility] | | | | | | OF | | | | | | CARDIOLOGY | | + + + + + + | EKG | Normal sinus | | [facility] | | | DIAGNOSIS | rhythmAnteroseptal | | OF | | | | infarct , age | | CARDIOLOGY | | | | undeterminedAbnormal | | | | | | ECG"I have personally | | | | | | interpreted this report, | | | | | | either alone or with a | | | | | | trainee."Confirmed by | | | | | | ELSIE ZHANG ([id number]) on | | | | | | 12-May-2008 13:26:28 | | | | + + + [...] view image for the detailed interpretation from [employer] results. | CARDIOLOGY | | | | + + + + + + + + | Performing | Address | City/State/Zipcode | Phone Number | | Organization | | | | + + + + + | [facility] | [address] | [place], [place] | | | CARDIOLOGY | [address] | [address] | | + + + + + | [facility] | [address] | [place], [place] | | | CARDIOLOGY | [facility] | [address] | | + + + + + 12 LEAD ECG (05/11/2008 3:04 PM PST) + + + + + + | Component | Value | Ref Range | Performed | Pathologist | | | | | At | Signature | + + + + + + | VENTRICULAR | 101 | BPM | [facility] | | | RATE | | | OF | | | | | | CARDIOLOGY | | + + + + + + | ATRIAL RATE | 101 | BPM | [facility] | | [...] + + + + | QT | 394 | ms | [facility] | | | | | | OF | | | | | | CARDIOLOGY | | + + + + + + | QTC | 511 | ms | [facility] | | | | | | OF | | | | | | CARDIOLOGY | | + + + + + + | P AXIS | 43 | degrees | [facility] | | | | | | OF | | | | | | CARDIOLOGY | | + + + + + + | R AXIS | 2 | degrees | [facility] | | | | | | OF | | | | | | CARDIOLOGY | | + + + + + + | T AXIS | 52 | degrees | [facility] | | | | | | OF | | | | | | CARDIOLOGY | | + + + + + + | EKG | Normal sinus | | [facility] | | | DIAGNOSIS | rhythmNormal ECG"I have | | OF | | | | personally interpreted | | CARDIOLOGY | | | | this report, either | | | | | | alone or with a | | | | | | trainee."Confirmed by | | | | | | ELSIE ZHANG ([id number]) on | | | | | | 28-Sylvester-2009 13:24:34 | | | | + + + [...] + + + | Please click | [facility] | | on view image for the detailed interpretation from [employer] results. | CARDIOLOGY | | | | + + + + + + + + | Performing | Address | City/State/Zipcode | Phone Number | | Organization | | | | + + + + + | [facility] | [address] | [place], [place] | | | CARDIOLOGY | [address] | [address] | | + + + + + | [facility] | [address] | [place] [place] [place] [place] | | | CARDIOLOGY | [address] | [address] | | + + + + + 12 LEAD ECG (05/11/2008 2:51 PM PST) + + + + + + | Component | Value | Ref Range | Performed | Pathologist | | | | | At | Signature | + + + + + + | VENTRICULAR | 128 | BPM | [facility] | | | RATE | | | OF | | | | | | CARDIOLOGY | | + + + + + + | ATRIAL RATE | 128 | BPM | [facility] | | | | | | OF | | | | | | CARDIOLOGY | | + + + + + + | QRS | 132 | ms | [facility] | | | DURATION | | | OF | | | | | | CARDIOLOGY | | + + + + + + | QT | 410 | ms | [facility] | | | | | | OF | | | | | | CARDIOLOGY | | + + + + + + | QTC | 598 | ms | [facility] | | | | | | OF | | | | | | CARDIOLOGY | | + + + + + + | R AXIS | 11 | degrees | [facility] | | | | | | OF | | | | | | CARDIOLOGY | | + + + + + + | T AXIS | 52 | degrees | [facility] | | | | | | OF | | | | | | CARDIOLOGY | | + + + + + + | EKG | Wide QRS tachycardiaLeft | | [facility] | | | DIAGNOSIS | bundle branch | | OF | | | | blockAbnormal ECG"I have | | CARDIOLOGY | | | | personally interpreted | | | | | | this report, either | | | | | | alone or with a | | | | | | trainee."Confirmed by | | | | | | ELSIE ZHANG ([id number]) on | | | | | | 12-May-2008 13:22:45 | | | | + + + [...] view image for the detailed interpretation from [employer] results. | CARDIOLOGY | | | | + + + + + + + + | Performing | Address | City/State/Zipcode | Phone Number | | Organization | | | | + + + + + | [facility] | [address] | [place], [place] | | | CARDIOLOGY | [address] | [address] | | + + + + + | [facility] | [address] | [place], [place] | | | CARDIOLOGY | [address] | [address] | | + + + + + PHOSPHORUS, PLASMA (05/11/2008 2:47 PM PST) + + + + + + | Component | Value | Ref Range | Performed | Pathologist | | | | | At | Signature | + + + + + + | PHOSPHORUS, | Combined. | 2.4 - 4.7 mg/dL | [facility] | | | PLASMA [...] | + + + + + | [facility] | [address] | [place] [address] | | | PATHOLOGY | [address] | | | + + + + + | [facility] | [address] | [place] [address] | | | PATHOLOGY | [address] | | | + + + + + MAGNESIUM, PLASMA (05/11/2008 2:47 PM PST) + + + + + + | Component | Value | Ref Range | Performed | Pathologist | | | | | At | Signature | + + + + + + | MAGNESIUM,P | Combined. | 1.8 - 2.5 mg/dL | [facility] | | | LASMA | | | DEPARTMENT | | | [...] | + + + + + | [facility] | [address] | [place] [address] | | | PATHOLOGY | [address] | | | + + + + + | [facility] | [address] | [place] [address] | | | PATHOLOGY | [address] | | | + + + + + TROPONIN I, PLASMA (05/11/2008 2:47 PM PST) + + + + + + | Component | Value | Ref Range | Performed | Pathologist | | | | | At | Signature | + + + + + + | TROPONIN I | Combined. | <0.50 ng/mL | [facility] | | | | | [...] | + + + + + | [facility] | [address] | [place] [address] | | | PATHOLOGY | [address] | | | + + + + + | [facility] | [address] | [place] [address] | | | PATHOLOGY | [address] | | | + + + + + CBC ONLY (05/11/2008 2:47 PM PST) + + + + + + | Component | Value | Ref Range | Performed | Pathologist | | | | | At | Signature | + + + + + + | WHITE CELL | 13.8 (H) | 4.4 - 11.0 K/cu | [facility] | | | COUNT | | mm | DEPARTMENT | | | | | | OF | | | | | | PATHOLOGY | | + + + + + + | RED CELL | 3.84 (L) | 4.00 - 5.20 | [facility] | | | COUNT | | M/cu mm | DEPARTMENT | | | | | | OF | | | | | | PATHOLOGY | | + + + + + + | HEMOGLOBIN | 11.2 (L) | 12.0 - 16.0 | [facility] | | | | | g/dL | DEPARTMENT | | | | | | OF | | | | | | PATHOLOGY | | + + + + + + | HEMATOCRIT | 32.8 (L) | 36.0 - 46.0 % | [facility] | | | | | | DEPARTMENT | | | | | | OF | | | | | | PATHOLOGY | | + + + + + + | MCV | 85.6 | 80.0 - 96.0 fL | [facility] | | | | | | DEPARTMENT | | | | | | OF | | | | | | PATHOLOGY | | + + + + + + | MCHC | 34.2 | 33.4 - 35.5 | [facility] | [...] + + + + | PLATELET | 203 | 150 - 400 K/cu | [facility] [...] | + + + + + | [facility] | [address] | [place] [address] | | | PATHOLOGY | [address] | | | + + + + + | [facility] | [address] [place] [address] [address] | [place] [address] | | | PATHOLOGY | [address] | | | + + + + + TROPONIN I, PLASMA (05/11/2008 2:41 PM PST) + +-------+ + + + | Component | Value | Ref Range | Performed | Pathologist | | | | | At | Signature | + +-------+ + + + | TROPONIN I | 0.03 | <0.50 ng/mL | [facility] | | | | | [...] | [facility] | [address] | [place] [address] | | | PATHOLOGY | [address] | | | + + + + + | [facility] | [address] | [place] [address] | | | PATHOLOGY | [address] | | | + + + + + MAGNESIUM, PLASMA (05/11/2008 2:41 PM PST) + +---------+ + + + | Component | Value | Ref Range | Performed | Pathologist | | | | | At | Signature | + +---------+ + + + | MAGNESIUM,P | 1.5 (L) | 1.8 - 2.5 mg/dL | [facility] | | | LASMA | | | DEPARTMENT | | | | | | OF | | | | | | PATHOLOGY | | + +---------+ + + + + + | Specimen | + + | | + + + + + + + | Performing | Address | City/State/Zipcode | Phone Number | | Organization | | | | + + + + + | [facility] | [address] | [place] [address] | | | PATHOLOGY | [address] | | | + + + + + | [facility] | [facility] | [place] [address] | | | PATHOLOGY | [address] | | | + + + + + PHOSPHORUS, PLASMA (05/11/2008 2:41 PM PST) + +-------+ + + + | Component | Value | Ref Range | Performed | Pathologist | | | | | At | Signature | + +-------+ + + + | PHOSPHORUS, | 4.7 | 2.4 - 4.7 mg/dL | [facility] | | | PLASMA [...] | [facility] | [address] | [place] [address] | | | PATHOLOGY | [address] | | | + + + + + | [facility] | [address] | [place] [address] | | | PATHOLOGY | [address] | | | + + + + + BASIC METABOLIC SET (NA, K, CL, TCO2, BUN, CR, GLU, CA) (05/11/2008 2:41 PM PST) + +---------+ + + + | Component | Value | Ref Range | Performed | Pathologist | | | | | At | Signature | + +---------+ + + + | GLUCOSE, | 182 (H) | 60 - 99 mg/dL | [facility] | | | PLASMA | | | DEPARTMENT | | | (LAB) | | | OF | | | | | | PATHOLOGY | | + +---------+ + + + | BUN, PLASMA | 13 | 6 - 20 mg/dL | [facility] | | | (LAB) | | | DEPARTMENT | | | | | | OF | | | | | | PATHOLOGY | | + +---------+ + + + | CREATININE | 0.74 | 0.60 - 1.10 | [facility] | | | PLASMA | | mg/dL | DEPARTMENT | | | (LAB) | | | OF | | | | | | PATHOLOGY | | + +---------+ + + + | SODIUM, | 140 | 134 - 143 | [facility] | | | PLASMA | | mmol/L | DEPARTMENT | | | (LAB) | | | OF | | | | | | PATHOLOGY | | + +---------+ + + + | POTASSIUM, | 4.3 | 3.4 - 5.0 | [facility] | | | PLASMA | | mmol/L | DEPARTMENT | | | (LAB) | | | OF | | | | | | PATHOLOGY | | + +---------+ + + + | CHLORIDE, | 112 (H) | 97 - 108 mmol/L | [facility] | | | PLASMA | | | DEPARTMENT | | | (LAB) | | | OF | | | | | | PATHOLOGY | | + +---------+ + + + | TOTAL CO2, | 22 (L) | 23 - 31 mmol/L | [facility] | | | PLASMA | | | DEPARTMENT | | | (LAB) | | | OF | | | | | | PATHOLOGY | | + +---------+ + + + | CALCIUM, | 8.0 (L) | 8.6 - 10.2 | [facility] | [...] | + + + + + | [facility] | [address] | [place] [address] | | | PATHOLOGY | [address] | | | + + + + + | [facility] | [address] | [place] [address] | | | PATHOLOGY | [address] | | | + + + + + OPERATION RECORD (05/11/2008 12:00 AM PST) + + + | Narrative | Performed At | + + + | [id number] | | | [id number] | | | [id number] [address] | | | [phone] [id number] Date: | | | 05/11/2008 Attending | | | Surgeon: Jelena Carias M.D. | | | Waste Recycler(s): Arjun | | | Josephine Arciniega Preoperative Diagnosis(es): Right mastectomy | | | defect. Postoperative Diagnosis(es): Right mastectomy defect. | | | Procedure: Delayed right breast reconstruction with pedicled | | | TRAM flap. Anesthesia: General with endotracheal tube. | | | Indications: This 58-year-old woman is now 2 years status post right | | | mastectomy for breast cancer. She underwent chemotherapy, but no | | | radiation therapy. She now presents for delayed right breast | | | reconstruction. She is a good candidate for autologous | | | reconstruction. Though she does have multiple medical problems, | | | we have elected to perform a pedicled TRAM flap. Details Of | | | Procedure: The patient was marked in the preop area, the midline, | | | outline for the TRAM flap, and the ideal dimensions of the breast | | | were marked. She was taken into the operating room and underwent | | | uncomplicated induction of general anesthesia. Sequential | | | compression devices were placed in her lower legs, a Chapman catheter | | | was placed, and she was placed into the supine position. The | | | entire chest and abdomen were prepped and draped. A surgical | | | pause was done confirming the correct patient, planned procedure, | | | presence of necessary equipments, administration of antibiotics, | | | and presence and functioning of her sequential compression devices. | | | Initially, we used the Doppler to listen for perforators on | | | the patient's left side, a single large software designer was | | | identified. The upper incision was then made based on that, and | | | the upper skin flap elevated off the anterior rectus sheath. The | | | majority of the dissection was done centrally, and the dissection | | | was taken up to the epigastric region and towards the right | | | mastectomy defect. The skin flap was distracted inferiorly, and | | | the lower abdominal incision was made on the left side of the flap | | | but was elevated up off the anterior fascia to the level of the first | | | identified lateral row software designer. The fascia was then opened | | | at this level, and the muscle was dissected out. The inferior | | | epigastric vessels were identified. The fascia was cut over the | | | muscle in the area of the known perforators, and the dissection | | | continued around the umbilicus. Once the inferior epigastric | | | vessels were controlled, these were temporarily occluded to ensure | | | there was adequate flow through the other systems. This was | | | documented at this point on the right side. The flap was elevated | | | up to the midline controlling perforators with small | | | hemoclips. The rectus muscle was divided inferiorly just below | | | the inferior epigastric vessels. The fascia was then incised | | | superiorly over the rectus muscle up towards the epigastric | | | region. The patient was noted to have significant diastasis, and | | | the remainder of the flap was dissected out of the rectus sheath. | | | The right mastectomy scar was then reopened, and the mastectomy | | | flaps were created down to the ideal inframammary crease and | | | superiorly creating adequate space for the flap. A tunnel was | | | then made between the 2 cavities. The flap was checked multiple | | | times for bleeding, was noted to have good bright red bleeding from | | | all sites. Zone IV of the TRAM flap was then excised as was the | | | small portion of zone III. The flap was then placed into a bag | | | and easily placed through the prepared tunnel into the right | | | mastectomy defect. The pedicle was checked to ensure there was no | | | tension on the pedicle or torsion. The fascia in the donor | | | site was closed after ensuring adequate hemostasis using | | | interrupted 0 Tycron mattress suture to close the fascia above and | | | below the fascial defect. This was done repairing the fascia | | | primarily. The fascial defect was repaired with a piece of Surgipro | | | mesh. This was soaked in bacitracin irrigation and then cut to | | | fit the defect. The total defect was approximately 8 x 5 cm, and | | | this was sutured in place with interrupted 0 Tycron mattress | | | sutures. She was irrigated out and checked for | | | hemostasis. #10 JHONATHAN drains were placed, and the skin flap was | | | temporarily closed. The site for the umbilicus was then | | | identified, and this was cut as a vertical incision. The umbilicus | | | was then brought out through here and checked carefully to ensure | | | there was no torsion on the umbilical stock and inset with 3-0 | | | Polysorb in the dermis and 4-0 Biosyn as a subcuticular stitch in | | | the skin. The abdominal incision was closed in the same fashion | | | using 3-0 Polysorb in Sary's fascia and in the deep dermis and | | | 4-0 Biosyn was used as a subcuticular stitch in the skin. She | | | was closed over two #10 JHONATHAN drains. The flap inset was | | | accomplished orienting the flap to create the most esthetic breast | | | which most closely matched her left breast. Portions of the flap | | | were excised, and portions were de-epithelialized based on her | | | mastectomy flaps. The flap was secured to the upper chest wall | | | towards the axillary tail, and the inset was accomplished with 3-0 | | | Polysorb in the deep layer and in the deep dermis. 4-0 Biosyn | | | was used as a subcuticular stitch in the skin. Steri-Strips were | | | applied over all sites. The flap appeared to be pink with good | | | temperature and color throughout the case and was noted to bleed | | | well with dissection and the inset. The patient tolerated the | | | procedure well. There were no complications. Sponge and needle | | | counts were correct. No specimens were sent. She was extubated | | | in the operating room and taken to the recovery room in stable | | | condition. Jelena Carias M.D. [facility] | | | / [id number] / [id number] / [id number] / | | | | | + + + + + | Procedure Note | + + | Jelena Carias MD - 05/11/2008 12:00 AM PST [id number] | | [id number] LEONARDO Cardenas | | [id number] Date: 05/11/2008 Attending Surgeon: Jelena | | Sachin Carias M.D. Waste Recycler(s): Arjun Arciniega M.D. Preoperative | | Diagnosis(es):Right mastectomy defect. Postoperative Diagnosis(es):Right mastectomy | | defect. Procedure:Delayed right breast reconstruction with pedicled TRAM flap. | | Anesthesia:General with endotracheal tube. Indications:This 58-year-old woman is now 2 | | years status post right mastectomy forbreast cancer. She underwent chemotherapy, but no | | radiation therapy. Dianne presents for delayed right breast reconstruction. She is a | | goodcandidate for autologous reconstruction. Though she does have multiplemedical | | problems, we have elected to perform a pedicled TRAM flap. Details Of Procedure:The | | patient was marked in the preop area, the midline, outline for the TRAMflap, and the | | ideal dimensions of the breast were marked. She was takeninto the operating room and | | underwent uncomplicated induction of generalanesthesia. Sequential compression devices | | were placed in her lower legs,a Chapman catheter was placed, and she was placed into the | | supine position.The entire chest and abdomen were prepped and draped. A surgical pause | | wasdone confirming the correct patient, planned procedure, presence ofnecessary | | equipments, administration of antibiotics, and presence andfunctioning of her sequential | | compression devices. Initially, we used the Doppler to listen for perforators on the | | patient'sleft side, a single large software designer was identified. The upper incisionwas | | then made based on that, and the upper skin flap elevated off theanterior rectus sheath. | | The majority of the dissection was done centrally,and the dissection was taken up to | | the epigastric region and towards theright mastectomy defect. The skin flap was | | distracted inferiorly, and thelower abdominal incision was made on the left side of the | | flap but waselevated up off the anterior fascia to the level of the first | | identifiedlateral row software designer. The fascia was then opened at this level, and | | themuscle was dissected out. The inferior epigastric vessels were identified.The fascia | | was cut over the muscle in the area of the known perforators,and the dissection | | continued around the umbilicus. Once the inferiorepigastric vessels were controlled, | | these were temporarily occluded toensure there was adequate flow through the other | | systems. This wasdocumented at this point on the right side. The flap was elevated up | | tothe midline controlling perforators with small hemoclips. The rectusmuscle was | | divided inferiorly just below the inferior epigastric vessels.The fascia was then | | incised superiorly over the rectus muscle up towardsthe epigastric region. The patient | | was noted to have significantdiastasis, and the remainder of the flap was dissected out | | of the rectussheath. The right mastectomy scar was then reopened, and the mastectomy | | flaps werecreated down to the ideal inframammary crease and superiorly creatingadequate | | space for the flap. A tunnel was then made between the 2cavities. The flap was checked | | multiple times for bleeding, was noted tohave good bright red bleeding from all sites. | | Zone IV of the TRAM flap wasthen excised as was the small portion of zone III. The | | flap was thenplaced into a bag and easily placed through the prepared tunnel into | | theright mastectomy defect. The pedicle was checked to ensure there was notension on | | the pedicle or torsion. The fascia in the donor site was closed after ensuring adequate | | hemostasisusing interrupted 0 Tycron mattress suture to close the fascia above andbelow | | the fascial defect. This was done repairing the fascia primarily.The fascial defect | | was repaired with a piece of Surgipro mesh. This wassoaked in bacitracin irrigation and | | then cut to fit the defect. The totaldefect was approximately 8 x 5 cm, and this was | | sutured in place withinterrupted 0 Tycron mattress sutures. She was irrigated out and | | checkedfor hemostasis. #10 JHONATHAN drains were placed, and the skin flap wastemporarily | | closed. The site for the umbilicus was then identified, andthis was cut as a vertical | | incision. The umbilicus was then brought outthrough here and checked carefully to | | ensure there was no torsion on theumbilical stock and inset with 3-0 Polysorb in the | | dermis and 4-0 Biosyn asa subcuticular stitch in the skin. The abdominal incision was | | closed inthe same fashion using 3-0 Polysorb in Sary's fascia and in the deepdermis | | and 4-0 Biosyn was used as a subcuticular stitch in the skin. Shewas closed over two | | #10 JHONATHAN drains. The flap inset was accomplished orienting the flap to create the | | mostesthetic breast which most closely matched her left breast. Portions ofthe flap | | were excised, and portions were de-epithelialized based on hermastectomy flaps. The | | flap was secured to the upper chest wall towards theaxillary tail, and the inset was | | accomplished with 3-0 Polysorb in the deeplayer and in the deep dermis. 4-0 Biosyn was | | used as a subcuticular stitchin the skin. Steri-Strips were applied over all sites. | | The flap appearedto be pink with good temperature and color throughout the case and | | wasnoted to bleed well with dissection and the inset. The patient toleratedthe | | procedure well. There were no complications. Sponge and needle countswere correct. No | | specimens were sent. She was extubated in the operatingroom and taken to the recovery | | room in stable condition. Jelena Carias M.D. [facility] / [id number] / [id number] / | | [id number] / T: 05/12/2008 | |muscle was divided inferiorly just below the inferior epigastric vessels. | |The fascia was then incised superiorly over the rectus muscle up towards | |the epigastric region. The patient was noted to have significant | |diastasis, and the remainder of the flap was dissected out of the rectus | |sheath. | | | | | |The right mastectomy scar was then reopened, and the mastectomy flaps were | |created down to the ideal inframammary crease and superiorly creating | |adequate space for the flap. A tunnel was then made between the 2 | |cavities. The flap was checked multiple times for bleeding, was noted to | |have good bright red bleeding from all sites. Zone IV of the TRAM flap was | |then excised as was the small portion of zone III. The flap was then | |placed into a bag and easily placed through the prepared tunnel into the | |right mastectomy defect. The pedicle was checked to ensure there was no | |tension on the pedicle or torsion. | | | | | |The fascia in the donor site was closed after ensuring adequate hemostasis | |using interrupted 0 Tycron mattress suture to close the fascia above and | |below the fascial defect. This was done repairing the fascia primarily. | |The fascial defect was repaired with a piece of Surgipro mesh. This was | |soaked in bacitracin irrigation and then cut to fit the defect. The total | |defect was approximately 8 x 5 cm, and this was sutured in place with | |interrupted 0 Tycron mattress sutures. She was irrigated out and checked | |for hemostasis. #10 JHONATHAN drains were placed, and the skin flap was | |temporarily closed. The site for the umbilicus was then identified, and | |this was cut as a vertical incision. The umbilicus was then brought out | |through here and checked carefully to ensure there was no torsion on the | |umbilical stock and inset with 3-0 Polysorb in the dermis and 4-0 Biosyn as | |a subcuticular stitch in the skin. The abdominal incision was closed in | |the same fashion using 3-0 Polysorb in Sary's fascia and in the deep | |dermis and 4-0 Biosyn was used as a subcuticular stitch in the skin. She | |was closed over two #10 JHONATHAN drains. | | | | | |The flap inset was accomplished orienting the flap to create the most | |esthetic breast which most closely matched her left breast. Portions of | |the flap were excised, and portions were de-epithelialized based on her | |mastectomy flaps. The flap was secured to the upper chest wall towards the | |axillary tail, and the inset was accomplished with 3-0 Polysorb in the deep | |layer and in the deep dermis. 4-0 Biosyn was used as a subcuticular stitch | |in the skin. Steri-Strips were applied over all sites. The flap appeared | |to be pink with good temperature and color throughout the case and was | |noted to bleed well with dissection and the inset. The patient tolerated | |the procedure well. There were no complications. Sponge and needle counts | |were correct. No specimens were sent. She was extubated in the operating | |room and taken to the recovery room in stable condition. | | | | | | | | | | | | | | | | | |Jelena Carias M.D. | | | | | |[facility] / | |[id number] / [id number] / [id number] / | | | | | | | | | | | | | | | | | | | | | + + ANESTHESIA/SEDATION (05/11/2008 12:00 AM PST) + + + | Narrative | Performed At | + + + | | | + + + + + | Procedure Note | + + | Carlton Faculty - 05/11/2008 12:00 AM PST | + + ANESTHESIA/SEDATION (05/10/2008 12:00 AM PST) + + + | Narrative | Performed At | + + + | | | + + + + + | Procedure Note | + + | Wagner Vincent - 05/10/2008 12:00 AM PST | + + documented in this encounter Visit Diagnoses Not on filedocumented in this encounter Administered Medications + +--------+ +------+------+------+ | Medication Order | MAR | Action | Dose | Rate | Site | | | Action | Date | | | | + +--------+ +------+------+------+ | anastrozole (aka ARIMIDEX) | Given | 05/16/19 | 1 mg | | | | tablet 1 mg 1 mg, oral, DAILY, | | 09 9:00 | | | | | First dose on Sat05/12/08 at | | AM PST | | | | | 0900, Until Discontinued | | | | | | + +--------+ +------+------+------+ +-------+ +------+---+---+ | Given | 05/15/19 | 1 mg | | | | | 09 9:00 | | | | | | AM PST | | | | +-------+ +------+---+---+ | Given | 05/14/19 | 1 mg | | | | | 09 9:00 | | | | | | AM PST | | | | +-------+ +------+---+---+ +---+---+ | | | +---+---+ + +-------+ +--------+---+---+ | aspirin tablet 325 mg 325 mg, | Given | 05/16/19 | 325 mg | | | | oral, DAILY, First dose on Sat | | 09 9:00 | | | | | 05/12/08 at 0900, Until | | AM PST | | | | | Discontinued | | | | | | + +-------+ +--------+---+---+ +-------+ +--------+---+---+ | Given | 05/15/19 | 325 mg | | | | | 09 9:00 | | | | | | AM PST | | | | +-------+ +--------+---+---+ | Given | 05/14/19 | 325 mg | | | | | 09 9:00 | | | | | | AM PST | | | | +-------+ +--------+---+---+ +---+---+ | | | +---+---+ + +-------+ +--------+---+---+ | aspirin tablet 325 mg 325 mg, | Given | 05/11/19 | 325 mg | | | | oral, INTERVENTIONAL RECOVERY | | 09 3:59 | | | | | UNIT, 1 dose, First dose on Sat | | PM PST | | | | | 05/11/08 at 1600 | | | | | | + +-------+ +--------+---+---+ +---+---+ | | | +---+---+ + +-------+ +---+---+---+ | bacitracin ointment topical, | Given | 05/16/19 | | | | | THREE TIMES DAILY, First dose on | | 09 9:00 | | | | | Triny 05/13/08 at 1045, Until | | AM PST | | | | | Discontinued | | | | | | + +-------+ +---+---+---+ +-------+ +---+---+---+ | Given | 05/15/19 | | | | | | 09 10:00 | | | | | | PM PST | | | | +-------+ +---+---+---+ | Given | 05/15/19 | | | | | | 09 4:00 | | | | | | PM PST | | | | +-------+ +---+---+---+ +---+---+ | | | +---+---+ + +-------+ +-------+---+---+ | bisacodyl aditya IRENEX) | Given | 05/14/19 | 10 mg | | | | suppository 10 mg 10 mg, rectal, | | 09 8:15 | | | | | ONCE, 1 dose, 05/14/08 at | | AM PST | | | | | 0815 | | | | | | + +-------+ +-------+---+---+ +---+---+ | | | +---+---+ + +-------+ + +---+---+ | calcium carbonate chewable (aka | Given | 05/13/19 | 1,000 mg | | | | TUMS) tablet 500-1,000 mg | | 09 10:01 | | | | | 500-1,000 mg, oral, EVERY 8 HOURS | | PM PST | | | | | NEEDED, Starting 05/12/08 | | | | | | | at 0802, Until 05/16/08 at | | | | | | | 1903, dyspepsia | | | | | | + +-------+ + +---+---+ +---+---+ | | | +---+---+ + +-------+ + +---+---+ | calcium-vitamin D (aka OS-MERCY | Given | 05/16/19 | 1 tablet | | | | 500 + D) 500 (1,250)-200 mg-unit | | 09 9:00 | | | | | 1 Tab 1 tablet, oral, TWICE | | AM PST | | | | | DAILY, First dose on Sat05/11/08 | | | | | | | at 2100, Until Discontinued | | | | | | + +-------+ + +---+---+ +-------+ + +---+---+ | Given | 05/15/19 | 1 tablet | | | | | 09 9:00 | | | | | | PM PST | | | | +-------+ + +---+---+ | Given | 05/15/19 | 1 tablet | | | | | 09 9:00 | | | | | | AM PST | | | | +-------+ + +---+---+ +---+---+ | | | +---+---+ + +-------+ +-----+---+---+ | ceFAZolin (aka ANCEF) injection | Given | 05/14/19 | 1 g | | | | 1 g 1 g, intravenous, EVERY 8 | | 09 5:00 | | | | | HOURS, First dose on Sat05/11/08 | | AM PST | | | | | at 2100, Until Discontinued | | | | | | + +-------+ +-----+---+---+ +-------+ +-----+---+---+ | Given | 05/13/19 | 1 g | | | | | 09 9:00 | | | | | | PM PST | | | | +-------+ +-----+---+---+ | Given | 05/13/19 | 1 g | | | | | 09 1:00 | | | | | | PM PST | | | | +-------+ +-----+---+---+ +---+---+ | | | +---+---+ + +-------+ +--------+---+---+ | cephALEXin (aka KEFLEX) capsule | Given | 05/15/19 | 250 mg | | | | 250 mg 250 mg, oral, EVERY 6 | | 09 10:00 | | | | | HOURS, First dose on Sat05/14/08 | | AM PST | | | | | at 1730, Until Discontinued | | | | | | + +-------+ +--------+---+---+ +-------+ +--------+---+---+ | Given | 05/15/19 | 250 mg | | | | | 09 4:00 | | | | | | AM PST | | | | +-------+ +--------+---+---+ | Given | 05/14/19 | 250 mg | | | | | 09 10:00 | | | | | | PM PST | | | | +-------+ +--------+---+---+ +---+---+ | | | +---+---+ + +-------+ +--------+---+---+ | clindamycin (aka CLEOCIN) | Given | 05/16/19 | 300 mg | | | | capsule 300 mg 300 mg, oral, | | 09 9:00 | | | | | FOUR TIMES DAILY, First dose on | | AM PST | | | | | 05/15/08 at 1400, Until | | | | | | | Discontinued | | | | | | + +-------+ +--------+---+---+ +-------+ +--------+---+---+ | Given | 05/15/19 | 300 mg | | | | | 09 10:00 | | | | | | PM PST | | | | +-------+ +--------+---+---+ | Given | 05/15/19 | 300 mg | | | | | 09 6:00 | | | | | | PM PST | | | | +-------+ +--------+---+---+ +---+---+ | | | +---+---+ + +---------+ +---+-------+---+ | dextrose 5%-NaCl 0.9%-KCl 20 | New Bag | 05/11/19 | | 100 | | | mEq/L IV intravenous, | | 09 3:36 | | mL/hr | | | CONTINUOUS, Starting e 05/11/08 | | PM PST | | | | | at 1545, Until Triny 05/13/08 at | | | | | | | 0610 | | | | | | + +---------+ +---+-------+---+ +---+---+ | | | +---+---+ + +-------+ +-------+---+---+ | diphenhydrAMINE (aka BENADRYL) | Given | 05/15/19 | 25 mg | | | | injection 25 mg 25 mg, | | 09 1:55 | | | | | intravenous, EVERY 6 HOURS | | PM PST | | | | | NEEDED, Starting 05/15/08 at | | | | | | | 1335, Until 05/16/08 at 1903, | | | | | | | itching | | | | | | + +-------+ +-------+---+---+ +---+---+ | | | +---+---+ + +-------+ +-------+---+---+ | fluoxetine (aka PROZAC) capsule | Given | 05/16/19 | 20 mg | | | | 20 mg 20 mg, oral, DAILY, First | | 09 9:00 | | | | | dose on 05/12/08 at 0900, | | AM PST | | | | | Until Discontinued | | | | | | + +-------+ +-------+---+---+ +-------+ +-------+---+---+ | Given | 05/15/19 | 20 mg | | | | | 09 9:00 | | | | | | AM PST | | | | +-------+ +-------+---+---+ | Given | 05/14/19 | 20 mg | | | | | 09 9:00 | | | | | | AM PST | | | | +-------+ +-------+---+---+ +---+---+ | | | +---+---+ + +-------+ +--------+---+---+ | gabapentin (aka NEURONTIN) | Given | 05/16/19 | 300 mg | | | | capsule 300 mg 300 mg, oral, | | 09 9:00 | | | | | THREE TIMES DAILY, First dose on | | AM PST | | | | | 05/11/08 at 2200, Until | | | | | | | Discontinued | | | | | | + +-------+ +--------+---+---+ +-------+ +--------+---+---+ | Given | 05/15/19 | 300 mg | | | | | 09 10:00 | | | | | | PM PST | | | | +-------+ +--------+---+---+ | Given | 05/15/19 | 300 mg | | | | | 09 4:00 | | | | | | PM PST | | | | +-------+ +--------+---+---+ +---+---+ | | | +---+---+ + +-------+ +--------+---+---+ | HYDROmorphone (aka DILAUDID) | Given | 05/11/19 | 1.4 mg | | | | injection 0.2-2 mg 0.2-2 mg, | | 09 7:20 | | | | | intravenous, POSTPROCEDURE PRN, | | PM PST | | | | | Starting Sat05/11/08 at 1016, | | | | | | | Until Sat05/11/08 at 2010, | | | | | | | moderate pain | | | | | | + +-------+ +--------+---+---+ +-------+ +--------+---+---+ | Given | 05/11/19 | 0.6 mg | | | | | 09 3:54 | | | | | | PM PST | | | | +-------+ +--------+---+---+ +---+---+ | | | +---+---+ + +-------+ +--------+---+---+ | HYDROmorphone (aka DILAUDID) | Given | 05/12/19 | 0.5 mg | | | | injection 0.5 mg 0.5 mg, | | 09 8:00 | | | | | intravenous, EVERY 2 HOURS | | AM PST | | | | | NEEDED, Starting 05/11/08 at | | | | | | | 2022, Until Sat05/12/08 at 0920, | | | | | | | moderate pain | | | | | | + +-------+ +--------+---+---+ +-------+ +--------+---+---+ | Given | 05/11/19 | 0.5 mg | | | | | 09 8:50 | | | | | | PM PST | | | | +-------+ +--------+---+---+ +---+---+ | | | +---+---+ + +---------+ +---+--------+---+ | HYDROmorphone 0.5 mg/mL ANNEALING FURNACE OPERATOR | New Bag | 05/12/19 | | mL/hr | | | infusion (ADULT, Pyxis) | | 09 9:30 | | | | | intravenous, CONTINUOUS, Starting | | AM PST | | | | | 05/12/08 at 0930, Until Fri | | | | | | | 05/14/08 at 0801 | | | | | | + +---------+ +---+--------+---+ +---+---+ | | | +---+---+ + +-------+ +------+---+---+ | labetalol (aka | Given | 05/11/19 | 5 mg | | | | NORMODYNE,TRANDATE) injection 5 | | 09 6:00 | | | | | mg 5 mg, intravenous, | | PM PST | | | | | POSTPROCEDURE PRN, Starting Tue | | | | | | | 05/11/08 at 1017, Until Tue | | | | | | | 05/11/08 at 2010, hypertension | | | | | | + +-------+ +------+---+---+ +---+---+ | | | +---+---+ + +-------+ +-------+---+---+ | lansoprazole (aka PREVACID) | Given | 05/16/19 | 15 mg | | | | capsule 15 mg 15 mg, oral, | | 09 9:00 | | | | | DAILY, First dose on Sat05/12/08 | | AM PST | | | | | at 0900, Until Discontinued | | | | | | + +-------+ +-------+---+---+ +-------+ +-------+---+---+ | Given | 05/15/19 | 15 mg | | | | | 09 9:00 | | | | | | AM PST | | | | +-------+ +-------+---+---+ | Given | 05/14/19 | 15 mg | | | | | 09 9:00 | | | | | | AM PST | | | | +-------+ +-------+---+---+ +---+---+ | | | +---+---+ + +-------+ +-----+---+---+ | magnesium sulfate IV (premade) | Given | 05/11/19 | 2 g | | | | 1 dose, Starting Sat05/11/08 at | | 09 4:00 | | | | | 1558, Until Sat05/11/08 at 1608 | | PM PST | | | | + +-------+ +-----+---+---+ +---+---+ | | | +---+---+ + +-------+ +------+---+---+ | metoprolol (aka LOPRESSOR) | Given | 05/11/19 | 5 mg | | | | injection 5 mg 5 mg, | | 09 5:15 | | | | | intravenous, ONCE, 1 dose, Tue | | PM PST | | | | | 05/11/08 at 1715 | | | | | | + +-------+ +------+---+---+ +---+---+ | | | +---+---+ + +-------+ +---------+---+---+ | metoprolol tartrate (aka | Given | 05/16/19 | 12.5 mg | | | | LOPRESSOR) dose 12.5 mg 12.5 mg, | | 09 10:00 | | | | | oral, EVERY 6 HOURS, First dose | | AM PST | | | | | on Sat05/12/08 at 1600, Until | | | | | | | Discontinued | | | | | | + +-------+ +---------+---+---+ +-------+ +---------+---+---+ | Given | 05/16/19 | 12.5 mg | | | | | 09 4:00 | | | | | | AM PST | | | | +-------+ +---------+---+---+ | Given | 05/15/19 | 12.5 mg | | | | | 09 10:00 | | | | | | PM PST | | | | +-------+ +---------+---+---+ +---+---+ | | | +---+---+ + +-------+ + +---+---+ | multivitamin-minerals 1 Tab 1 | Given | 05/16/19 | 1 tablet | | | | tablet, oral, DAILY, First dose | | 09 9:00 | | | | | on Sat05/12/08 at 0900, Until | | AM PST | | | | | Discontinued | | | | | | + +-------+ + +---+---+ +-------+ + +---+---+ | Given | 05/15/19 | 1 tablet | | | | | 09 9:00 | | | | | | AM PST | | | | +-------+ + +---+---+ | Given | 05/14/19 | 1 tablet | | | | | 09 9:00 | | | | | | AM PST | | | | +-------+ + +---+---+ +---+---+ | | | +---+---+ + +-------+ +-------+---+---+ | oxycodone immediate release | Given | 05/16/19 | 15 mg | | | | (aka ROXICODONE) tablet 5-25 mg | | 09 11:48 | | | | | 5-25 mg, oral, EVERY 4 HOURS | | AM PST | | | | | NEEDED, Starting 05/11/08 at | | | | | | | 2, Until 05/16/08 at 1903, | | | | | | | mild pain | | | | | | + +-------+ +-------+---+---+ +-------+ +-------+---+---+ | Given | 05/16/19 | 15 mg | | | | | 09 5:05 | | | | | | AM PST | | | | +-------+ +-------+---+---+ | Given | 05/15/19 | 15 mg | | | | | 09 9:33 | | | | | | PM PST | | | | +-------+ +-------+---+---+ +---+---+ | | | +---+---+ + +-------+ +--------+---+---+ | potassium chloride SR (aka | Given | 05/16/19 | 20 mEq | | | | K-DUR) tablet 20 mEq 20 mEq, | | 09 9:00 | | | | | oral, TWICE DAILY, First dose on | | AM PST | | | | | 05/11/08 at 2100, Until | | | | | | | Discontinued | | | | | | + +-------+ +--------+---+---+ +-------+ +--------+---+---+ | Given | 05/15/19 | 20 mEq | | | | | 09 9:00 | | | | | | PM PST | | | | +-------+ +--------+---+---+ | Given | 05/15/19 | 20 mEq | | | | | 09 9:00 | | | | | | AM PST | | | | +-------+ +--------+---+---+ +---+---+ | | | +---+---+ + +-------+ +-------+---+---+ | rosuvastatin (aka CRESTOR) | Given | 05/16/19 | 20 mg | | | | tablet 20 mg 20 mg, oral, DAILY, | | 09 9:00 | | | | | First dose on Sat05/12/08 at | | AM PST | | | | | 0900, Until Discontinued | | | | | | + +-------+ +-------+---+---+ +-------+ +-------+---+---+ | Given | 05/15/19 | 20 mg | | | | | 09 9:00 | | | | | | AM PST | | | | +-------+ +-------+---+---+ | Given | 05/14/19 | 20 mg | | | | | 09 9:00 | | | | | | AM PST | | | | +-------+ +-------+---+---+ +---+---+ | | | +---+---+ + +-------+ + +---+---+ | senna-docusate (aka SENOKOT S) | Given | 05/16/19 | 1 tablet | | | | 8.6-50 mg 1 Tab 1 tablet, oral, | | 09 9:00 | | | | | TWICE DAILY, First dose on Sat | | AM PST | | | | | 05/11/08 at 2100, Until | | | | | | | Discontinued | | | | | | + +-------+ + +---+---+ +-------+ + +---+---+ | Given | 05/15/19 | 1 tablet | | | | | 09 9:00 | | | | | | PM PST | | | | +-------+ + +---+---+ | Given | 05/15/19 | 1 tablet | | | | | 09 9:00 | | | | | | AM PST | | | | +-------+ + +---+---+ +---+---+ | | | +---+---+ + +-------+ +-------+---+---+ | spironolactone (aka ALDACTONE) | Given | 05/16/19 | 25 mg | | | | tablet 25 mg 25 mg, oral, DAILY, | | 09 9:00 | | | | | First dose on Sat05/12/08 at | | AM PST | | | | | 0900, Until Discontinued | | | | | | + +-------+ +-------+---+---+ +-------+ +-------+---+---+ | Given | 05/15/19 | 25 mg | | | | | 09 9:00 | | | | | | AM PST | | | | +-------+ +-------+---+---+ | Given | 05/14/19 | 25 mg | | | | | 09 9:00 | | | | | | AM PST | | | | +-------+ +-------+---+---+ +---+---+ | | | +---+---+ + +-------+ +-------+---+---+ | valsartan (rob BAILEY) tablet | Given | 05/16/19 | 40 mg | | | | 40 mg 40 mg, oral, DAILY, First | | 09 9:00 | | | | | dose on Sat05/12/08 at 0900, | | AM PST | | | | | Until Discontinued | | | | | | + +-------+ +-------+---+---+ +-------+ +-------+---+---+ | Given | 05/15/19 | 40 mg | | | | | 09 9:00 | | | | | | AM PST | | | | +-------+ +-------+---+---+ | Given | 05/14/19 | 40 mg | | | | | 09 9:00 | | | | | | AM PST | | | | +-------+ +-------+---+---+ +---+---+ | | | +---+---+ documented in this encounter
--- OUTSIDE RECORDS SUMMARY | ~2018-09-10 | XMS | Encounter Summary ---
Demographics + + + | Address | [address] | | | [place] [address] | + + + | Home Phone | | + + + | Preferred Language | Unknown | + + + | Marital Status | | + + + | Hinduism Affiliation | NON | + + + | Race | White | + + + | Ethnic Group | Not or | + + + Author + + + | Author | [facility] | + + + | Organization | [facility] | + + + | Address | Unknown | + + + | Phone | Unavailable | + + + Support + + + + + | Name | Relationship | Address | Phone | + + + + + | Ted Casas | ECON | [address] | | | | | [place] | | | | | [address] | | + + + + + | Carmen Renteria | ECON | [address] | | | | | [place] | | | | | [address] | | + + + + + | Vince Loredo | ECON | [place] | | + + + + + Care Team Providers + +------+ + | Care Missile Inspector Name | Role | Phone | [...] | | | | Mail Code: | [place], [place] | | | | | | [facility] | [address] | | | | | | for Health | Phone: | | | | | | and [address], | [phone] | | | | | | [address]th Floor | Fax: | | | | | | [place], [place] | [phone] | | | | | | [address] | | | | | | | Phone: | | | | | | | [phone] | | +--------+--------+ + + + + Encounter Details +--------+---------+ + + + | Date | Type | Department | Care Team | Description | +--------+---------+ + + + | 06/29/ | Office | Plastic and | Jelena Carias, | S/P breast | | 2009 | Visit | Reconstructive | [address] | reconstruction; | | | | Surgery at [facility] [address] | [place], [place] | Hernia, epigastric | | | | [address] | [address] | | | | | Code: [facility] | [phone] | | | | | for Health and | | | | | | Healing, 5th Floor | | | | | | [place], [place] | | | | | | [address] | | | | | | [phone] | | | +--------+---------+ + + + [...]
--- OUTSIDE RECORDS SUMMARY | ~2018-09-10 | XMS | Encounter Summary ---
Demographics + + + | Address | [address] | | | [place] [address] | + + + | Home Phone [...] Author | [facility] | + + + | Organization | [facility] | + + + | Address | Unknown | + + + | Phone | Unavailable | + + + Support + + + + + | Name | Relationship | Address | Phone | + + + + + | Ted Casas | ECON | [address] | | | | | [place] | | | | | [address] | | + + + + + | Carmen Renteria | ECON | [address] | | | | | [place] | | | | | [address] | | + + + + + | Vince Loredo | ECON | [place] | | + + + + + Care Team Providers + +------+ + | Care Sampler Tester Name | Role | Phone | [...] | 2008 | anned | [address] [facility] | [facility] | | | | | [facility] | | | | | | [place], [place] | | | | | | [address] | | | +--------+ + + + [...]
--- OUTSIDE RECORDS SUMMARY | ~2018-09-10 | XMS | Encounter Summary ---
Demographics + + + | Address | [address] | | | [place] [address] | + + + | Home Phone [...] + + + | Author | [facility] | + + + | Organization | [facility] | + + + | Address | Unknown | + + + | Phone | Unavailable | + + + Support + + + + + | Name | Relationship | Address | Phone | + + + + + | Ted Casas | ECON | [address] | | | | | [place] | | | | | [address] | | + + + + + | Carmen Renteria | ECON | [address] | | | | | [place] | | | | | [address] | | + + + + + | Vince Loredo | ECON | [place] | | + + + + + Care Team Providers + +------+ + | Care Union Carpenter Name | Role | Phone | + +------+ + PCP | Unavailable | + +------+ + Encounter Details +--------+------+ + + + | Date | Type | Department | Care Team | Description | +--------+------+ + + + | 05/07/ | Lab | Laboratory at [facility] | | | | 2008 | | [address] | | | | | | [place], [place] | | | | | | [address] | | | | | | [phone] | | | +--------+------+ + + + [...] + + + + + | [facility] | [address] [facility] | [place] [address] | | | PATHOLOGY | [address] | | | + + + + + | [facility] | [address] [facility] | [place] [address] | | | PATHOLOGY | [address] | | | + + + + + INR (05/07/2008 2:08 PM PST) + + + + + + | Component | Value | Ref Range | Performed | Pathologist | | | | | At | Signature | + + + + + + | INR | 1.06Comment: | 0.90 - 1.20 INR | [facility] | | | | INR | | [...] | + + + + + | [facility] DEPARTMENT OF | [address] | [place] [address] | | | PATHOLOGY | [address] | | | + + + + + | [facility] DEPARTMENT | [address] | [place] [address] | | | PATHOLOGY | [address] [...] DEPARTMENT OF | [address] | [place] [address] | | | PATHOLOGY | [address] | | | + + + + + | [facility] DEPARTMENT OF | [address] | [place] [address] | | | PATHOLOGY | [address] [...] DEPARTMENT OF | [address] | [place] [address] | | | PATHOLOGY | [address] | | | + + + + + | [facility] | [address] | [place] [address] | | | PATHOLOGY | [address] | | | + + + + + documented in this encounter Visit Diagnoses Not on filedocumented in this encounter"
--- OUTSIDE RECORDS SUMMARY | ~2018-09-10 | XMS | Encounter Summary ---
Demographics + + + | Address | [address] | | | [place] [address] | + + + | Home Phone [...] + | Ted Casas | ECON | [address] | | | | | [place] | | | | | [address] | | + + + + + | Carmen Renteria | ECON | [address] | | | | | [place] | | | | | [address] | | + + + + + | Vince Loredo | ECON | [place] | | + + + + + Care Team Providers + +------+ + | Care Client Consultant Name | Role | Phone | [...] Tomasz | | | | | at [facility] | [facility] | | | | | [address] | [place], [place] [facility] | | | | | [facility] | | | | | | Mailcode: [id number] [facility] | | | | | | [facility] | | | | | | [facility], | | | | | | [place] [address] | | | | | | [phone] | | | +--------+ + + + [...] view image for the detailed interpretation from [employer] results. | CARDIOLOGY | | | | + + + + + + + + | Performing | Address | City/State/Zipcode | Phone Number | | Organization | | | | + + + + + | [facility] DEPT OF | [address] [facility] | [place], [place] | | | CARDIOLOGY | [facility] | [address] | | + + + + + | [facility] | [address] [facility] | [place], [place] | | | CARDIOLOGY | [facility] | [address] | | + + + + + documented in this encounter Visit Diagnoses Not on filedocumented in this encounter
--- OUTSIDE RECORDS SUMMARY | ~2018-09-10 | XMS | Encounter Summary ---
Demographics + + + | Address | [address] | | | [place] [address] | + + + | Home Phone [...] + | Ted Patterson | ECON | [address] | | | | | [place] | | | | | [address] | | + + + + + | Carmen Renteria | ECON | [address] | | | | | [place] | | | | | [address] | | + + + + + | Vince Loredo | ECON | [place] | | + + + + + Care Team Providers + +------+ + | Care Tar Chaser Name | Role | Phone | + +------+ + | Adrián Gregory MD | PCP | | + +------+ + Encounter Details +--------+ + + + + | Date | Type | Department | Care Team | Description | +--------+ + + + + | 05/06/ | Office | [facility] | Erna Rainye, | Progress Note | | 2008 | Visit-Trans | [address] | MD [address] | | | | cribed | [place] | [place] | | | | | [address] | [address] | | | | | | [phone] | | | | | | | [...] Notes ReddJakob Leandro - 05/07/2008 6:21 AM [facility] [address] [place] [address] [address] DATE OF SERVICE: May 06, [...] is scheduled to undergo reconstructive surgery at [facility] in the near future. MEDICATIONS: 1. Arimidex [...] next follow-up, we will obtain ROMAN PATTERSON [id number] : 52 [id number] SERVICE DATE: 05/06/08 laboratory studies before visit. XF/MedQ /[id number] Electronically Signed X MD LEONARDO Brown LEE ANN A [id number] : 52 [id number] SERVICE DATE: 05/06/08 12 :07 PM PDTdocumented in this encounter Plan of Treatment Not on filedocumented as of this encounter Visit Diagnoses Not on filedocumented in this encounter"
--- OUTSIDE RECORDS SUMMARY | ~2018-09-10 | XMS | Encounter Summary ---
Demographics + + + | Address | [address] | | | [place] [address] | + + + | Home Phone | | + + + | Preferred Language | Unknown | + + + | Marital Status | | + + + | Restorationism Affiliation | NON | + + + [...] + | Ted Casas | ECON | [address] | | | | | [place] | | | | | [address] | | + + + + + | Carmen Renteria | ECON | [address] | | | | | [place] | | | | | [address] | | + + + + + | Vince Loredo | ECON | [place] | | + + + + + Care Team Providers + +------+ + | Care Bakery Sales Clerk Name | Role | Phone | [...] | | | | Street The | [address] | | | | | [place] | [phone] | | | | | [address] | | | | | | [phone] | | | +--------+ + + + [...] I referred her to ARNAV talley in [facility] for workup. Erna Rainey M.D. MARIA ANTONIA/JONATHANL /[id number] signed by Erna Rainey MD at 09/08/2015 1:51 PM PDTFu, Erna Waldron MD - 08/24/2015 4:05 PM PDTSee note documented in this encounter Plan of Treatment Not on filedocumented as of this encounter Visit Diagnoses Not on filedocumented in this encounter"
--- OUTSIDE RECORDS SUMMARY | ~2018-09-10 | XMS | Encounter Summary ---
Demographics + + + | Address | [address] | | | [place] [address] | + + + | Home Phone | | + + + | Preferred Language | Unknown | + + + | Marital Status | | + + + | Anabaptism Affiliation | NON | + + + | Race | White | + + + | Ethnic Group | Not or | + + + Author + + + | Author | [facility] | + + + | Organization | [facility] | + + + | Address | Unknown | + + + | Phone | Unavailable | + + + Support + + + + + | Name | Relationship | Address | Phone | + + + + + | Ted Casas | ECON | [address] | | | | | [place] | | | | | [address] | | + + + + + | Carmen Renteria | ECON | [address] | | | | | [place] | | | | | [address] | | + + + + + | Vince Loredo | ECON | [place] | | + + + + + Care Team Providers + +------+ + | Care Front Office Spec Name | Role | Phone | + [...] | | | | | nipple | [place], [place] | Mail Code: | | | | | Procedures | [address] | [address] | | | | | REQUEST TO | Phone: | for Health | | | | | SURGERY | [phone] | and Healing, | | | | | PRODUCTION SANITIZER | Fax: | 5th Floor | | | | | [place] | [phone] | [place], [place] | | | | | NIPPLE/AREOL | | [address] | | | | | A | | Phone: | | | | | RECONSTRUCTI | | [phone] | | | | | ON CT | | | | | | | REVISE | | | | | | | BREAST | | | | | | | RECONSTRUCTI | | | | | | | ON CT EXC | | | | | | | SKIN BENIG | | | | | | | 1.1-2CM | | | | | | | TRUNK,ARM,LE | | | | | | | G CT LAYR | | | | | | [...] Nipple; | | | | Surgery at [facility] [address] | [place], [place] | Personal History of | | | | [address] | [address] | Malignant Neoplasm | | | | Code: [facility] | [phone] | of Breast | | | | for Health and | | | | | | , Floor | | | | | | [place] | | | | | | [address] | | | | | | [phone] | | | +--------+---------+ + + + [...]
--- OUTSIDE RECORDS SUMMARY | ~2018-09-10 | XMS | Encounter Summary ---
Demographics + + + | Address | [address] | | | [place] [address] | + + + | Home Phone | | + + + | Preferred Language | Unknown | + + + | Marital Status | | + + + | Sikhism Affiliation | NON | + + + [...] + | Ted Patterson | ECON | [address] | | | | | [place] | | | | | [address] | | + + + + + | Carmen Renteria | ECON | [address] | | | | | [place] | | | | | [address] | | + + + + + | Vince Loredo | ECON | [place] | | + + + + + Care Team Providers + +------+ + | Care Stave And Bolt Equalizer Name | Role | Phone | + [...] | | | | right female | [facility] | [facility] | | | | | breast, | [place], [place] | [place], | | | | | unspecified | [address] | [place] [address] | | | | | site of | Phone: | | | | | | breast | [phone] | | | | | | Procedures | Fax: | | | | | | PET CT SKULL | [phone] | | | | | | BASE [...] | | [address] [facility] | [facility], [place] | | | | | [facility] The | [address] | | | | | [place] | [phone] | | | | | [address] | | | +--------+ + + + [...] | + + + | [address] [place] [address] | [facility] | | [place] [address] | DEPARTMENT OF | | [phone] | RADIOLOGY | | Name: PERRY PATTERSON Phys: MARISOL ALBERTO | | | : 1950 Sex: F CSN: | | | [id number] MR# [id number] Exam Date: | | | 07/04/2016 EXAM: [...] Transcribed Date/Time: 07/05/2016 01:05 | | | Night Time Nanny: FLUENCY | | + + + + + | Procedure Note | + + | Interface, Radiology Results - 07/05/2016 1:09 AM PDT [address] | | [place] [address] | | Name: PERRY PATTERSON ANN Phys: REMYMARISOL S : 1950 Sex: F | | CSN: [id number] MR# [id number] Exam Date: 07/04/2016 EXAM:PET-CT CLINICAL | | [...] | | |Transcribed Date/Time: 07/05/2016 01:05 | |Night Time Nanny: GORDO | | | | | | [...]
--- OUTSIDE RECORDS SUMMARY | ~2018-09-10 | XMS | Encounter Summary ---
Demographics + + + | Address | [address] | | | [place] [address] | + + + | Home Phone | | + + + | Preferred Language | Unknown | + + + | Marital Status | | + + + | Anabaptist Affiliation | NON | + + + | Race | White | + + + | Ethnic Group | Not or | + + + Author + + + | Author | [facility] | + + + | Organization | [facility] | + + + | Address | Unknown | + + + | Phone | Unavailable | + + + Support + + + + + | Name | Relationship | Address | Phone | + + + + + | Ted Casas | ECON | [address] | | | | | [place] | | | | | [address] | | + + + + + | Carmen Renteria | ECON | [address] | | | | | [place] | | | | | [address] | | + + + + + | Vince Loredo | ECON | [place] | | + + + + + Care Team Providers + +------+ + | Care Superintendent Concrete Mixing Plant Name | Role | Phone | + [...] Refill | [facility] | Eloisa Mota ARCHITECTURAL MODELER | Refill Request | | 2016 | | [place] [facility] | [address] | | | | | Oncology [address] | [facility] [place] [address] | | | | | [place] | [phone] | | | | | [place], [place] | | | | | | [address] | | | | | | [phone] | | | +--------+--------+ + + + [...]
--- OUTSIDE RECORDS SUMMARY | ~2018-09-10 | XMS | Encounter Summary ---
Demographics + + + | Address | [address] | | | [place] [address] | + + + | Home Phone | | + + + | Preferred Language | Unknown | + + + | Marital Status | | + + + | Baptism Affiliation | NON | + + + | Race | White | + + + | Ethnic Group | Not or | + + + Author + + + | Author | [facility] | + + + | Organization | [facility] | + + + | Address | Unknown | + + + | Phone | Unavailable | + + + Support + + + + + | Name | Relationship | Address | Phone | + + + + + | Ted Casas | ECON | [address] | | | | | [place] | | | | | [address] | | + + + + + | Carmen Renteria | ECON | [address] | | | | | [place] | | | | | [address] | | + + + + + | Vince Loredo | ECON | [place] | | + + + + + Care Team Providers + +------+ + | Care Customs Patrol Officer Name | Role | Phone | [...] [place] | | | | | | [address] | | | | | | [phone] | | | | | | | [...] + + + + | MPV | CONNIE CLEANER | 9.0 - 12.0 fL | [facility] [...] | + + + + + | [facility] | And | [place] [address] | | | [facility] | [facility] | | | + + + + + COMPLETE METABOLIC SET (NA,K,CL,CO2,BUN,CREAT,GLUC,CA,AST,ALT,BILI TOTAL,ALK PHOS,ALB,PROT TOTAL) (09/02/2008 12:41 PM PDT) + +---------+ + + + | Component | Value | Ref Range | Performed | Pathologist | | | | | At | Signature | + +---------+ + + + | SODIUM, | 140 | 137 - 146 MEQ/L | [facility] | | | PLASMA | [...] | + + + + + | [facility] | And | [place] [address] | | | [facility] | [facility] | | | + + + + + documented in this encounter Visit Diagnoses Not on filedocumented in this encounter"
--- OUTSIDE RECORDS SUMMARY | ~2018-09-10 | XMS | Encounter Summary ---
Demographics + + + | Address | [address] | | | [place] [address] | + + + | Home Phone | | + + + | Preferred Language | Unknown | + + + | Marital Status | | + + + | Catholic Affiliation | NON | + + + | Race | White | + + + | Ethnic Group | Not or | + + + Author + + + | Author | [facility] | + + + | Organization | [facility] | + + + | Address | Unknown | + + + | Phone | Unavailable | + + + Support + + + + + | Name | Relationship | Address | Phone | + + + + + | Ted Casas | ECON | [address] | | | | | [place] | | | | | [address] | | + + + + + | Carmen Renteria | ECON | [address] | | | | | [place] | | | | | [address] | | + + + + + | Vince Loredo | ECON | [place] | | + + + + + Care Team Providers + +------+ + | Care Medicare Sales Executive Name | Role | Phone | + [...] [place] | | | | | | [address] | | | | | | [phone] | | | | | | | [...] + | [facility] | And | [place] [address] | [phone] | | [facility] | Streets | | | + + + + + | [facility] | And | [place] [address] | | | [facility] | [address] | | | + + + + [...] + | [facility] | [place] | [place] [address] | [phone] | | MEDICAL CENTER | Streets | | | + + + + + | [facility] | [place] | [place] [address] | | | MEDICAL CENTER | Streets | | | + + + + + documented in this encounter Visit Diagnoses Not on filedocumented in this encounter"
--- OUTSIDE RECORDS SUMMARY | ~2018-09-10 | XMS | Encounter Summary ---
Demographics + + + | Address | [address] | | | [place] [address] | + + + | Home Phone | | + + + | Preferred Language | Unknown | + + + | Marital Status | | + + + | Yarsani Affiliation | NON | + + + | Race | White | + + + | Ethnic Group | Not or | + + + Author + + + | Author | [facility] | + + + | Organization | [facility] | + + + | Address | Unknown | + + + | Phone | Unavailable | + + + Support + + + + + | Name | Relationship | Address | Phone | + + + + + | Ted Casas | ECON | [address] | | | | | [place] | | | | | [address] | | + + + + + | Carmen Renteria | ECON | [address] | | | | | [place] | | | | | [address] | | + + + + + | Vince Loredo | ECON | [place] | | + + + + + Care Team Providers + +------+ + | Care Set Up Mechanic Stamping Machines Name | Role | Phone | + [...] | | | | Mail Code: | [place], [place] | | | | | | [address] | [address] | | | | | | for Health | Phone: | | | | | | and Healing, | [phone] | | | | | | 5th Floor | Fax: | | | | | | [place], [place] | [phone] | | | | | | [address] | | | | | | | Phone: | | | | | | | [phone] | | +--------+--------+ + + + + Encounter Details +--------+---------+ + + + | Date | Type | Department | Care Team | Description | +--------+---------+ + + + | 04/27/ | Office | Plastic and | Jelena Carias, | 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
--- OUTSIDE RECORDS SUMMARY | ~2018-09-10 | XMS | Encounter Summary ---
Demographics + + + | Address | [address] | | | [place] [address] | + + + | Home Phone [...] + | Ted Casas | ECON | [address] | | | | | [place] | | | | | [address] | | + + + + + | Carmen Renteria | ECON | [address] | | | | | [place] | | | | | [address] | | + + + + + | Vince Loredo | ECON | [place] | | + + + + + Care Team Providers + +------+ + | Care Bridge Tender Name | Role | Phone | + [...] [place] | | | | | | [address] | | | | | | [phone] | | | | | | | [...] 0.1 | 0.00 - 0.70 x10 | [facility] | | | | | 3/UL | [...] | [address] | [place] [address] | | | MEDICAL CENTER | Streets [...] + | [facility] | [address] | [place] [address] | | | MEDICAL CENTER | Streets | | | + + + + + documented in this encounter Visit Diagnoses Not on filedocumented in this encounter"
--- OUTSIDE RECORDS SUMMARY | ~2018-09-10 | XMS | Encounter Summary ---
Demographics + + + | Address | [address] | | | [place] [address] | + + + | Home Phone [...] + | Ted Casas | ECON | [address] | | | | | [place] | | | | | [address] | | + + + + + | Carmen Renteria | ECON | [address] | | | | | [place] | | | | | [address] | | + + + + + | Vince Loredo | ECON | [place] | | + + + + + Care Team Providers + +------+ + | Care House Wirer Name | Role | Phone | + [...] | | | | Street [address] | [address] | | | | | [place] | [phone] | | | | | [address] | | | | | | [phone] | | | +--------+ + + + [...] I referred her to ARNAV talley in [facility] for workup. Erna Rainey M.D. MARIA ANTONIA/JONATHANL /[id number] signed by Erna Rainey MD at 09/08/2015 1:51 PM PDTFu, Erna Waldron MD - 08/24/2015 4:05 PM PDTSee note documented in this encounter Plan of Treatment Not on filedocumented as of this encounter Visit Diagnoses Not on filedocumented in this encounter"
--- OUTSIDE RECORDS SUMMARY | ~2018-09-10 | XMS | Encounter Summary ---
Demographics + + + | Address | [address] | | | [place] [address] | + + + | Home Phone | | + + + | Preferred Language | Unknown | + + + | Marital Status | | + + + | Taoist Affiliation | NON | + + + [...] + | Ted Patterson | ECON | [address] | | | | | [place] | | | | | [address] | | + + + + + | Carmen Renteria | ECON | [address] | | | | | [place] | | | | | [address] | | + + + + + | Vince Loredo | ECON | [place] | | + + + + + Care Team Providers + +------+ + | Care Wire Brusher Name | Role | Phone | + +------+ + | Adrián Gregory MD | PCP | | + +------+ + Encounter Details +--------+ + + + + | Date | Type | Department | Care Team | Description | +--------+ + + + + | 01/06/ | Office | [facility] | Erna Rainey, | Progress Note | | 2008 | Visit-Trans | [address] | MD [address] | | | | cribed | [place] | [place] | | | | | [address] | [address] | | | | | | [phone] | | | | | | | [...] this encounter Progress Notes ReddJakob Leandro - 01/06/2009 4:40 PM PDT [facility] [address] [place] [id number] [address] DATE OF SERVICE: January 06, 2009 DIAGNOSIS: Stage I (T1B, N0, M0) breast cancer. INTERVAL HISTORY: The patient is taking Arimidex for as part of adjuvant therapy for her breast cancer. She has been doing generally well. She does have an ache above her left patella, also complaining of a small nodule on the lateral aspect of the left knee, and also some pain in her ankle area on the left side also. I obtained a CT scan 4 months ago, she had some evidence of fatty liver, but no evidence of metastasis. She has some frustration in terms of trying to lose weight. PHYSICAL EXAMINATION: Her weight today is 164.9 pounds. Blood pressure 122/78, pulse 71, temperature 98, saturation 96%. GENERAL APPEARANCE: Comfortable, pleasant and not in acute distress. HEENT: Pupils equal, round and reactive. Sclerae nonicteric. NECK: Supple. No palpable mass, no JVD or thyroid enlargement. LUNGS: Clear to auscultation bilaterally. HEART: Rate is regular. BREASTS: Status post reconstruction on the right side. Surgical incision is well healed. Left breast examination is unremarkable. There is no palpable mass, no axillary palpable lymphadenopathy. ABDOMEN: Obese and soft and nontender without organomegaly or mass. EXTREMITIES: Without edema or cyanosis. In the lateral aspect of left knee, there is a smooth, freely mobile nodule about 1 cm in size, appears to be right on top of a tendon. The top of the knee of the tendon insertion area, there is also tenderness in the area just above the lateral left ankle. No palpable masses. LABORATORY DATA: WBC 6.1, hemoglobin 13.7, platelet count 185,000. IMPRESSION: 1. Breast cancer without recurrence. 2. Possible tendinitis and a benign nodule of the left knee. PLAN: 1. Continue Arimidex. 2. I will have her come back in 6 months for next follow-up. XF/MedQ ROMAN PATTERSON [id number] : 52 [id number] SERVICE DATE: 01/06/09 /[id number] cc: Adrián Gregory M.D. Electronically Signed X MD LEONARDO Brown LEE ANN A [id number] : 52 [id number] SERVICE DATE: 01/06/09 12 :20 PM PDTdocumented in this encounter Plan of Treatment Not on filedocumented as of this encounter Visit Diagnoses Not on filedocumented in this encounter"
--- OUTSIDE RECORDS SUMMARY | ~2018-09-10 | XMS | Encounter Summary ---
Demographics + + + | Address | [address] | | | [place] [address] | + + + | Home Phone [...] + | Ted Casas | ECON | [address] | | | | | [place] | | | | | [address] | | + + + + + | Carmen Renteria | ECON | [address] | | | | | [place] | | | | | [address] | | + + + + + | Vince Loredo | ECON | [place] | | + + + + + Care Team Providers + +------+ + | Care Nuclear Physics Teacher Name | Role | Phone | [...] | | | | | | | [facility] | | | | | | | [place], | | | | | | | [place] [address] | | | | | | | Phone: | | | | | | | [phone] | | | | | | | Fax: | | | | | | | [phone] | +--------+--------+ + + + + Encounter Details +--------+ + + + + | Date | Type | Department | Care Team | Description | +--------+ + + + + | 01/27/ | Hospital | [facility] [address] | Carias Jelena, | | | 2009 - | Encounter | [address] | [address] | | | | | [id number] [place] | [place], [place] | | | 05/16/ | | HOSPITAL [place], | [address] | | | 2008 | | [place] [address] | [phone] | | | | | [phone] | | | +--------+ + + + [...] in 24hrs. Call: Plastic Surgery at or [phone] if after hours If you have any [...] in about 2 weeks (Sat, 06/02). Call [phone] to make an appointment. Local surgeon: Dr Parish to remove JHONATHAN drains as instructed. No cardiology follow-up needed. Follow Up Tests: (Tests at [facility] must be entered into [facility]) None Vital Signs at discharge as appropriate: BP: 101/57 mmHg (05/16/08 8:05 AM) Pulse: 80 (05/16/08 8:05 AM) Resp: 18 (05/16/08 8:05 AM) Wt - Scale: 79.2 kg (174 lb 9.7 oz) (05/16/08 6:05 AM) Discharge Patient To: Home Condition On Discharge: stable Does patient have a planned readmission: No Discharge Summary Completed: Yes Discharging Provider: Jose R Arzate MD [facility] [id number] [place] [address] Date Completed: 05/16/2008 Time Completed: 1015 Discharging Attending: Jelnea Carias MD Instructions discussed with patient and [...] in 24hrs. Call: Plastic Surgery at or [phone] if after hours If you have any [...] in about 2 weeks (Sat, 06/02). Call [phone] to make an appointment. Local surgeon: Dr Parish to remove JHONATHAN drains as instructed. No cardiology follow-up needed. Follow Up Tests: (Tests at [facility] must be entered into Epic) None Vital [...] Yes Discharging Provider: Jose R Arzate MD [facility] [id number] [place] [address] Date Completed: 05/16/2008 Time Completed: 1015 Discharging [...] Mode of Transportation: Car Accompanied by: Family/Responsible [employer] Name: (when applicable) Phone #: [...] -Resume regular diet after stress test -Wean FISH FARMER after stress test -cont ambulation, forward-flexed -bowel [...] meds after stress test today - D/c FISH FARMER -Per Cards: Dipyridimole stress test today -Pain: [...] control and mobility. She is still requiring FISH FARMER. Chapman out when she is more mobile. Awaiting further recommendations from Cardiology. Bacitracin ointment to umbilicus. Ibis Cardona MD - 05/13/2008 6:10 AM PST Plastic Surgery Nailer Operator PN Hospital Day:2 Author; IBIS NELSON MD Attending Physician: Jelena Carias MD Interval Hx: ambulated x2 yesterday. O2 sats down to low 90s% w/ambulation. Pain better co ntrolled w/FISH FARMER. No CP/dyspnea. anastrozole (aka ARIMIDEX) tablet 1 [...] Oral, THREE TIMES DAILY HYDROmorphone 0.5 mg/mL FISH FARMER infusion (ADULT, Pyxis) , , Intravenous, CONTINUOUS [...] test Saturday. Orders written for NPO at CO w/IVF. No caff einated/non-caffeinated coffee/sodas or chocolate. -Pain: dilaudid FISH FARMER, flexeril -ambulate, forward flexed -Chapman: d/c -IVF: TKO, restart at maintanence at CO when NPO ightIbis gorman MD - 05/12/2008 [...] - 05/12/2008 6:10 AM PST Plastic Surgery Nailer Operator PN Hospital Day:1 Author; IBIS NELSON MD [...] Parker, | | | | | | LICENSED CLUB MANAGER | | | | + + + [...] [facility] | [address] | [place], [place] | | | THERAPY | [facility] | [address] | | + + + + + | [facility] | [address] [facility] [address] | [place], [place] | | | THERAPY | [facility] | [address] | | + + + + + [...] [facility] | [address] | [place], [place] | | | THERAPY | [address] | [address] | | + + + + + | [facility] | [address] | [place], [place] | | | THERAPY | [address] | [address] | | + + + + + [...] with | | | | | | stave inspector Dr. Clark | | | | | [...] with | | | | | | stave inspector Dr. Clark | | | | | [...] + + | Performing | Address | City/State[facility] | Phone Number | | Organization | | | | + +---------+ + + | [facility] DEPARTMENT OF | | | | | [...] with | | | | | | stave inspector Dr. Clark | | | | | [...] | THERAPY | | | | Medalia, LICENSED CLUB MANAGER | | | | + + + [...] [facility] | [address] | [place], [place] | | | THERAPY | [address] | [address] | | + + + + + | [facility] | [address] [facility] | [place], [place] | | | THERAPY | [address] | [address] | | + + + + + CARDIAC STRESS TEST (05/14/2008 12:00 AM PST) + + + | Narrative | Performed At | + + + | | | | [id number] | | | 05/14/2008 [id number] | | | [id number] [place] | | | [phone] [id number] Clinic Date: 05/14/2008 | | | REFERRING [...] | | Sinus, rate 96 bpm; Intervals: NH: 174, QRS 72, QT 324; | | | QRS Maud 67. Delayed precordial R-wave transition due to | | | lead/heart position vs septal MT. No arrhythmias noted during | | | dipyridamole. No ST segment change noted during dipyridamole. | | | Physician staffing test: Thanh Abernathy M.D. END OF | | | IMPRESSION: Michael Wang M.D./demetrio D: | | | 05/27/2008 P cc: | | + + + + + | Procedure Note | + + | Michael Wang MD - 05/14/2008 12:00 AM PST [id number] | | 05/14/2008 [id number] [place]O Cardenas | | [id number] Clinic Date: 05/14/2008 REFERRING PHYSICIAN: TRISHA Whitaker | | PATIENT'S AGE 58 SEX: F Weight: 79 kg. DIAGNOSIS: Abnormal EKG, | | Breast Cancer, Pre-Op Evaluation REASON FOR TEST: Detection of Myocardial Ischemia | | (R/O CAD) PROTOCOL: Dipyridamole Infusion (0.56 mg/kg over 4 minutes ) Total 45 mg. | | IMPRESSION:Baseline ECG: Rhythm: Sinus, rate 96 bpm; Intervals: NH: 174, QRS 72, | | QT324; QRS Maud 67. Delayed precordial R-wave transition due to lead/heartposition | | vs septal MT.No arrhythmias noted during dipyridamole.No ST segment change [...] ECG: Rhythm: Sinus, rate 96 bpm; Intervals: NH: 174, QRS 72, QT | |324; QRS Maud 67. Delayed precordial R-wave transition due to lead/heart | |position vs septal MT. | | | |No arrhythmias noted during [...] | THERAPY | | | | Medalifrancy LICENSED CLUB MANAGER | | | | + + + [...] [facility] | [address] | [place], [place] | | | THERAPY | [address] [facility] | [address] | | + + + + + | [facility] | [address] | [place], [place] | | | THERAPY | [address] [facility] | [address] | | + + + + + [...] + + | Ordered by an | [facility] | | unspecified provider. Please click on view image for the detailed | CARDIOLOGY | | interpretation from [employer]ic results. | | |results. | | | | | + + + + + + + + | Performing | Address | City/State/Zipcode | Phone Number | | Organization | | | | + + + + + | [facility] | [address] | [place], [place] | | | CARDIOLOGY | [address] | [address] | | + + + + + | [facility] | [address] | [place], [place] | | | CARDIOLOGY | [address] | [address] | | + + + + + [...] [facility] DEPARTMENT OF | [address] | [place] [address] | | | PATHOLOGY | [address] | | | + + + + + | [facility] DEPARTMENT OF | [address] | [place] [address] | | | PATHOLOGY | [address] [...] [facility] | [address] | [place], [place] | | | THERAPY | [address] | [address] | | + + + + + | [facility] | [address] | [place], [place] | | | THERAPY | [facility] | [address] | | + + + + + [...] [facility]ENTER DEPARTMENT OF | [address] | [place] [address] | | | PATHOLOGY | [address] | | | + + + + + | [facility] | [address] | [place] [address] | | | PATHOLOGY | [address] [...] + + + | [facility] | [address] | [place] [address] | | | PATHOLOGY | [address] | | | + + + + + | [facility] | [facility] | [place] [address] | | | PATHOLOGY | [address] [...] view image for the detailed interpretation from New Relic results. | CARDIOLOGY | | | | + + + + + + + + | Performing | Address | City/State/Zipcode | Phone Number | | Organization | | | | + + + + + | [facility] | [address] | [place], [place] | | | CARDIOLOGY | [address] | [address] | | + + + + + | [facility] | [address] | [place], [place] | | | CARDIOLOGY | [facility] | [address] | | + + + + + [...] + + + | Please click | [facility] | | on view image for the detailed interpretation from InJiahe results. | CARDIOLOGY | | | | + + + + + + + + | Performing | Address | City/State/Zipcode | Phone Number | | Organization | | | | + + + + + | [facility] | [address] [facility] | [place], [place] | | | CARDIOLOGY | [address] | [address] | | + + + + + | [facility] | [address] | [facility] [place] [place] [place] | | | CARDIOLOGY | [address] | [address] | | + + + + + [...] view image for the detailed interpretation from New Relic results. | CARDIOLOGY | | | | + + + + + + + + | Performing | Address | City/State/Zipcode | Phone Number | | Organization | | | | + + + + + | [facility] | [address] [facility] | [place], [place] | | | CARDIOLOGY | [address] | [address] | | + + + + + | [facility] | [address] [facility] | [place], [place] | | | CARDIOLOGY | [address] | [address] | | + + + + + [...] + + + | [facility] | [address] [facility] | [place] [address] | | | PATHOLOGY | [address] | | | + + + + + | [facility] | [address] [facility] | [place] [address] | | | PATHOLOGY | [address] | | | + + + + + MAGNESIUM, PLASMA (05/11/2008 2:47 PM PST) + + + + + + | Component | Value | Ref Range | Performed | Pathologist | | | | | At | Signature | + + + + + + | MAGNESIUM,P | Combined. | 1.8 - 2.5 mg/dL | [facility] | | | L[facility] | | | [...] [facility] | [address] | [place] [address] | | | PATHOLOGY | [address] | | | + + + + + | [facility] DEPARTMENT OF | [address] | [place] [address] | | | PATHOLOGY | [address] [...] + | [facility] DEPARTMENT | [address] | [place] [address] | | | PATHOLOGY | [address] | | | + + + + + | [facility] | [address] [facility] | [place] [address] | | | PATHOLOGY | [address] [...] + + + | [facility] | [address] | [place] [address] | | | PATHOLOGY | [address] | | | + + + + + | [facility] | [address] [place] [address] [address] | [place] [address] | | | PATHOLOGY | [address] [...] DEPARTMENT OF | [address] | [place] [address] | | | PATHOLOGY | [address] | | | + + + + + | [facility] DEPARTMENT OF | [address] | [place] [address] | | | PATHOLOGY | [address] [...] + + + | [facility] | [address] | [place] [address] | | | PATHOLOGY | [address] | | | + + + + + | [facility] | [facility] | [place] [address] | | | PATHOLOGY | [address] [...] DEPARTMENT OF | [address] | [place] [address] | | | PATHOLOGY | [address] | | | + + + + + | [facility] | [address] | [place] [address] | | | PATHOLOGY | [address] [...] + + + | [facility] | [address] [facility] | [place] [address] | | | PATHOLOGY | [address] | | | + + + + + | [facility] | [address] [facility] | [place] [address] | | | PATHOLOGY | [address] | | | + + + + + OPERATION RECORD (05/11/2008 12:00 AM PST) + + + | Narrative | Performed At | + + + | [id number] | | | [id number] | | | [id number] [address] | | | A [id number] Date: | | | 05/11/2008 Attending | | | Surgeon: Jelena Carias M.D. | | | Pecan Gatherer(s): Arjun | | | Josephine Arciniega Preoperative [...] the patient's left side, a single large food science technician was | | | identified. The upper [...] first | | | identified lateral row food science technician. The fascia was then opened | | [...] Carias M.D. GLENNY | | | / [id number] / [id number] / [id number] / | | | | | + + + + + | Procedure Note | + + | Jelena Carias MD - 05/11/2008 12:00 AM PST [id number] | | [id number] [facility]O Cardenas | | [id number] Date: 05/11/2008 Attending Surgeon: Jelena | | Sachin Carias M.D. Pecan Gatherer(s): Arjun Arciniega M.D. Preoperative | | Diagnosis(es):Right [...] | | patient'sleft side, a single large food science technician was identified. The upper incisionwas | | [...] of the first | | identifiedlateral row food science technician. The fascia was then opened at this [...] room in stable condition. Jelena Carias M.D. [facility] / [id number] / [id number] / | | [id number] / T: 05/12/2008 | |muscle was divided [...] Carias M.D. | | | | | |[facility] / | |[id number] / [id number] / [id number] / | | | | | | [...] + +---------+ +---+--------+---+ | HYDROmorphone 0.5 mg/mL FISH FARMER | New Bag | 05/12/19 | | [...]
--- OUTSIDE RECORDS SUMMARY | ~2018-09-10 | XMS | Encounter Summary ---
Demographics + + + | Address | [address] | | | [place] [address] | + + + | Home Phone [...] + | Ted Casas | ECON | [address] | | | | | [place] | | | | | [address] | | + + + + + | Carmen Renteria | ECON | [address] | | | | | [place] | | | | | [address] | | + + + + + | Vince Loredo | ECON | [place] | | + + + + + Care Team Providers + +------+ + | Care Coconut Cooker Name | Role | Phone | + [...] of | | | | Surgery at [facility] [address] | [place], [place] | Breast | | | | [address] | [phone] | | | | | Code: [facility] Center | [phone] | | | | | for Health and | | | | | | [facility], 5th Floor | | | | | | [place], [place] | | | | | | [address] | | | | | | [phone] | | | +--------+---------+ + + + [...]
--- OUTSIDE RECORDS SUMMARY | ~2018-09-10 | XMS | Encounter Summary ---
Demographics + + + | Address | [address] | | | [place] [address] | + + + | Home Phone [...] + | Ted Patterson | ECON | [address] | | | | | [place] | | | | | [address] | | + + + + + | Carmen Renteria | ECON | [address] | | | | | [place] | | | | | [address] | | + + + + + | Vince Loredo | ECON | [place] | | + + + + + Care Team Providers + +------+ + | Care Coremaker Pipe Name | Role | Phone | + [...] [place] | | | | | [address] | [address] | | | | | | [phone] | | | | | | | [...] Erna Rainey MD - 01/11/2010 9:18 AM [facility] [address] [place] [address] [address] DATE OF SERVICE: January 10, 2010 DIAGNOSIS: Stage I (T1B, N0, N0) breast cancer. INTERIM HISTORY: The patient is taking Arimidex as part of her adjuvant treatment. She has hot flashes but she is able to tolerate pretty well. She just recently retired, she was able to travel with her in their fifth wheel, went to [facility] [place] [facility].. She had a good time. She [...] obtain laboratory studies at next visit. PAKO/Juan /[id number] cc: Adrián Gregory M.D. Electronically Signed 05/10/10 1009 X MD LEONARDO Brwon LEE ANN A [id number] : 52 [id number] SERVICE DATE: 01/10/10 9 :11 AM PDTdocumented in this encounter Plan of Treatment Not on filedocumented as of this encounter Visit Diagnoses Not on filedocumented in this encounter"
--- OUTSIDE RECORDS SUMMARY | ~2018-09-10 | XMS | Encounter Summary ---
Demographics + + + | Address | [address] | | | [place] [address] | + + + | Home Phone [...] + + + | Author | [facility] | + + + | Organization | [facility] | + + + | Address | Unknown | + + + | Phone | Unavailable | + + + Support + + + + + | Name | Relationship | Address | Phone | + + + + + | Ted Casas | ECON | [address] | | | | | [place] | | | | | [address] | | + + + + + | Carmen Renteria | ECON | [address] | | | | | [place] | | | | | [address] | | + + + + + | Vince Loredo | ECON | [place] | | + + + + + Care Team Providers + +------+ + | Care Research Staff Member Name | Role | Phone | + [...] [place] | | | | | | [address] | | | | | | [phone] | | | | | | | [...] +--------+ + + + | BONE SCAN [id number] | Routin | 07/05/2010 | | Results for this | | | e | 10:32 AM | | procedure are in the | | | | PDT | | results section. | + +--------+ + + + documented in this encounter Results BONE SCAN [id number] (07/05/2010 10:32 AM PDT) + + | [...]
--- OUTSIDE RECORDS SUMMARY | ~2018-09-10 | XMS | Encounter Summary ---
Demographics + + + | Address | [address] | | | [place] [address] | + + + | Home Phone | | + + + | Preferred Language | Unknown | + + + | Marital Status | | + + + | Orthodox Affiliation | NON | + + + | Race | White | + + + | Ethnic Group | Not or | + + + Author + + + | Author | [facility] | + + + | Organization | [facility] | + + + | Address | Unknown | + + + | Phone | Unavailable | + + + Support + + + + + | Name | Relationship | Address | Phone | + + + + + | Ted Casas | ECON | [address] | | | | | [place] | | | | | [address] | | + + + + + | Carmen Renteria | ECON | [address] | | | | | [place] | | | | | [address] | | + + + + + | Vince Loredo | ECON | [place] | | + + + + + Care Team Providers + +------+ + | Care Neuroradiologist Name | Role | Phone | + [...] [place] | | | | | | [address] | | | | | | [phone] | | | | | | | [...] 0.4 | 0 - 0.6 x10 | [facility] | | | | | 3/UL | A MEDICAL | | | | | | CENTER | | + +---------+ + + + | BANDS % | 0.7 | 0 - 7 % | [facility] | | | | | | A MEDICAL | | | | | | CENTER | | + +---------+ + + + | BANDS # | 0.0 (L) | 0.00 - 0.70 x10 | [facility] | | | | | 3/UL | [...] | + + + + + | [place] | And | [place] [address] | | | [facility] | Streets | | | + [...] | + + + + + | [facility] | | [place] [address] | | | [facility] | [place] | | | + + + + + documented in this encounter Visit Diagnoses Not on filedocumented in this encounter"
--- OUTSIDE RECORDS SUMMARY | ~2018-09-10 | XMS | Encounter Summary ---
Demographics + + + | Address | [address] | | | [place] [address] | + + + | Home Phone [...] + | Ted Casas | ECON | [address] | | | | | [place] | | | | | [address] | | + + + + + | Carmen Renteria | ECON | [address] | | | | | [place] | | | | | [address] | | + + + + + | Vince Loredo | ECON | [place] | | + + + + + Care Team Providers + +------+ + | Care Behavior Specialist Name | Role | Phone | [...] [place] | | | | | [address] | [address] | | | | | | [phone] | | | | | | | [...] Erna Rainey MD - 06/18/2011 11:05 AM [facility] [address] [place], [place] [address]ROM[place] FISHER ANN DATE OF SERVICE: June 18, [...] by the end of April 2012. PAKO/MedQ /[id number] cc: MD Adrián Ochoa M.D. Electronically Signed 06/03/12 1026 X MD LEONARDO Brown LEE ANN [id number] : 52 [id number] SERVICE DATE: 06/18/11 12 :19 PM PDTdocumented in this encounter Plan of Treatment Not on filedocumented as of this encounter Visit Diagnoses Not on filedocumented in this encounter"
--- OUTSIDE RECORDS SUMMARY | ~2018-09-10 | XMS | Encounter Summary ---
Demographics + + + | Address | [address] | | | [place] [address] | + + + | Home Phone | | + + + | Preferred Language | Unknown | + + + | Marital Status | | + + + | Scientology Affiliation | NON | + + + | Race | White | + + + | Ethnic Group | Not or | + + + Author + + + | Author | [facility] | + + + | Organization | [facility] | + + + | Address | Unknown | + + + | Phone | Unavailable | + + + Support + + + + + | Name | Relationship | Address | Phone | + + + + + | Tde Casas | ECON | [address] | | | | | [place] | | | | | [address] | | + + + + + | Carmen Renteria | ECON | [address] | | | | | [place] | | | | | [address] | | + + + + + | Vince Loredo | ECON | [place] | | + + + + + Care Team Providers + +------+ + | Care Ceramic Chemist Name | Role | Phone | + [...] | | | | | nipple | [place], [place] | Mail Code: | | | | | Procedures | [address] | [address] | | | | | REQUEST TO | Phone: | for Health | | | | | SURGERY | [phone] | and Healing, | | | | | LAB COURIER | Fax: | 5th Floor | | | | | [place] | [phone] | [place], [place] | | | | | NIPPLE/AREOL | | [address] | | | | | A | | Phone: | | | | | RECONSTRUCTI | | [phone] | | | | | ON CA | | | | | | | REVISE | | | | | | | BREAST | | | | | | | RECONSTRUCTI | | | | | | | ON CA EXC | | | | | | | SKIN BENIG | | | | | | | 1.1-2CM | | | | | | | TRUNK,ARM,LE | | | | | | | G CA [address]AY[address] | | | | | | [...] Nipple; | | | | Surgery at [facility] [address] | [place], [place] | Personal History of | | | | [address] | [address] | Malignant Neoplasm | | | | Code: [facility] | [phone] | of Breast | | | | for Health and | | | | | | , Floor | | | | | | [place], [place] | | | | | | [address] | | | | | | [phone] | | | +--------+---------+ + + + [...]
--- OUTSIDE RECORDS SUMMARY | ~2018-09-10 | XMS | Encounter Summary ---
Demographics + + + | Address | [address] | | | [place] [address] | + + + | Home Phone | | + + + | Preferred Language | Unknown | + + + | Marital Status | | + + + | Holiness Affiliation | NON | + + + | Race | White | + + + | Ethnic Group | Not or | + + + Author + + + | Author | [facility] | + + + | Organization | [facility] | + + + | Address | Unknown | + + + | Phone | Unavailable | + + + Support + + + + + | Name | Relationship | Address | Phone | + + + + + | Ted Casas | ECON | [address] | | | | | [place] | | | | | [address] | | + + + + + | Carmen Renteria | ECON | [address] | | | | | [place] | | | | | [address] | | + + + + + | Vince Loredo | ECON | [place] | | + + + + + Care Team Providers + +------+ + | Care Elementary Vocal Music Teacher Name | Role | Phone | + +------+ + | Adriná Gregory MD | PCP | | + [...] | | | | | | | [facility] | | | | | | | [place], | | | | | | | [place] [address] | | | | | | | Phone: | | | | | | | [phone] | | | | | | | Fax: | | | | | | | [phone] | +--------+--------+ + + + + Encounter Details +--------+ + + + + | Date | Type | Department | Care Team | Description | +--------+ + + + + | 01/27/ | Hospital | [facility] [address] | Carias Jelena, | | | 2009 - | Encounter | [address] | [address] | | | | | [id number] [place] | [place], [place] | | | 05/16/ | | HOSPITAL [place], | [address] | | | 2008 | | [place] [address] | [phone] | | | | | [phone] | | | +--------+ + + + [...] in 24hrs. Call: Plastic Surgery at or [phone] if after hours If you have any [...] in about 2 weeks (Sat, 06/02). Call [phone] to make an appointment. Local surgeon: Dr Parish to remove JHONATHAN drains as instructed. No cardiology follow-up needed. Follow Up Tests: (Tests at [facility] must be entered into [facility]) None Vital Signs at discharge as appropriate: BP: 101/57 mmHg (05/16/08 8:05 AM) Pulse: 80 (05/16/08 8:05 AM) Resp: 18 (05/16/08 8:05 AM) Wt - Scale: 79.2 kg (174 lb 9.7 oz) (05/16/08 6:05 AM) Discharge Patient To: Home Condition On Discharge: stable Does patient have a planned readmission: No Discharge Summary Completed: Yes Discharging Provider: Jose R Arzate MD [facility] [id number] [place] [address] Date Completed: 05/16/2008 Time Completed: 1015 Discharging [...] in 24hrs. Call: Plastic Surgery at or [phone] if after hours If you have any [...] in about 2 weeks (Sat, 06/02). Call [phone] to make an appointment. Local surgeon: Dr Parish to remove JHONATHAN drains as instructed. No cardiology follow-up needed. Follow Up Tests: (Tests at [facility] must be entered into Epic) [...] Summary Completed: Yes Discharging Provider: Jose R Azrate MD [facility] [id number] [place] [address] Date Completed: 05/16/2008 Time Completed: 1015 Discharging [...] Mode of Transportation: Car Accompanied by: Family/Responsible [employer] Name: (when applicable) Phone [...] -Resume regular diet after stress test -Wean CERAMIC ARTIST after stress test -cont ambulation, forward-flexed -bowel [...] meds after stress test today - D/c CERAMIC ARTIST -Per Cards: Dipyridimole stress test today -Pain: [...] control and mobility. She is still requiring CERAMIC ARTIST. Chapman out when she is more mobile. Awaiting further recommendations from Cardiology. Bacitracin ointment to umbilicus. Ibis Cardona MD - 05/13/2008 6:10 AM PST Plastic Surgery Cyber Special Agent PN Hospital Day:2 Author; IBIS NELSON MD Attending Physician: Jelena Carias MD Interval Hx: ambulated x2 yesterday. O2 sats down to low 90s% w/ambulation. Pain better co ntrolled w/CERAMIC ARTIST. No CP/dyspnea. anastrozole (aka ARIMIDEX) tablet 1 [...] Oral, THREE TIMES DAILY HYDROmorphone 0.5 mg/mL CERAMIC ARTIST infusion (ADULT, Pyxis) , , Intravenous, CONTINUOUS [...] test Saturday. Orders written for NPO at MT w/IVF. No caff einated/non-caffeinated coffee/sodas or chocolate. -Pain: dilaudid CERAMIC ARTIST, flexeril -ambulate, forward flexed -Chapman: d/c -IVF: TKO, restart at maintanence at [place] when NPO ightIbis gorman MD - 05/12/2008 [...] - 05/12/2008 6:10 AM PST Plastic Surgery Cyber Special Agent PN Hospital Day:1 Author; IBIS NELSON MD [...] Parker, | | | | | | HYDROCRANE OPERATOR | | | | + + [...] [facility] | [address] | [place], [place] | | | THERAPY | [facility] | [address] | | + + + + + | [facility] | [address] [facility] [address] | [place], [place] | | | THERAPY | [facility] | [address] | | + + + + + [...] [facility] | [address] | [place], [place] | | | THERAPY | [address] | [address] | | + + + + + | [facility] | [address] | [place], [place] | | | THERAPY | [address] | [address] | | + + + + + [...] with | | | | | | harbor department manager Dr. Clark | | | | | [...] with | | | | | | harbor department manager Dr. Clark | | | | | [...] + + | Performing | Address | City[facility] | Phone Number | | Organization | | | | + +---------+ + + | [facility] DEPARTMENT OF | | | [...] with | | | | | | harbor department manager Dr. Clark | | | | | [...] | THERAPY | | | | Medalia, HYDROCRANE OPERATOR | | | | + + [...] [facility] | [address] | [place], [place] | | | THERAPY | [address] | [address] | | + + + + + | [facility] | [address] [facility] | [place], [place] | | | THERAPY | [address] | [address] | | + + + + + CARDIAC STRESS TEST (05/14/2008 12:00 AM PST) + + + | Narrative | Performed At | + + + | | | | [id number] | | | 05/14/2008 [id number] | | | [id number] [place] | | | [phone] [id number] Clinic Date: 05/14/2008 | | | REFERRING [...] | | Sinus, rate 96 bpm; Intervals: NM: 174, QRS 72, QT 324; | | | QRS Stanford 67. Delayed precordial R-wave transition due to | | | lead/heart position vs septal DE. No arrhythmias noted during | | | dipyridamole. No ST segment change noted during dipyridamole. | | | Physician staffing test: Thanh Abernathy M.D. END OF | | | IMPRESSION: Michael Wang M.D./demetrio D: | | | 05/27/2008 P cc: | | + + + + + | Procedure Note | + + | Michael Wang MD - 05/14/2008 12:00 AM PST [id number] | | 05/14/2008 [id number] [place] | | [phone] Clinic Date: 05/14/2008 REFERRING PHYSICIAN: TRISHA Whitaker | | PATIENT'S AGE 58 SEX: F Weight: 79 kg. DIAGNOSIS: Abnormal EKG, | | Breast Cancer, Pre-Op Evaluation REASON FOR TEST: Detection of Myocardial Ischemia | | (R/O CAD) PROTOCOL: Dipyridamole Infusion (0.56 mg/kg over 4 minutes ) Total 45 mg. | | IMPRESSION:Baseline ECG: Rhythm: Sinus, rate 96 bpm; Intervals: NM: 174, QRS 72, | | QT324; QRS Stanford 67. Delayed precordial R-wave transition due to lead/heartposition | | vs septal DE.No arrhythmias noted during dipyridamole.No ST segment change [...] ECG: Rhythm: Sinus, rate 96 bpm; Intervals: NM: 174, QRS 72, QT | |324; QRS Stanford 67. Delayed precordial R-wave transition due to lead/heart | |position vs septal DE. | | | |No arrhythmias noted during [...] | THERAPY | | | | Medalifrancy HYDROCRANE OPERATOR | | | | + + [...] [facility] | [address] | [place], [place] | | | THERAPY | [facility] [facility] | [address] | | + + + + + | [facility] | [address] | [place], [place] | | | THERAPY | [facility] [facility] | [address] | | + + + + + [...] + + | Ordered by an | [facility] | | unspecified provider. Please click on view image for the detailed | CARDIOLOGY | | interpretation from [employer] results. | | |results. | | | | | + + + + + + + + | Performing | Address | City/State/Zipcode | Phone Number | | Organization | | | | + + + + + | [facility] | [address] | [place], [place] | | | CARDIOLOGY | [address] | [address] | | + + + + + | [facility] | [address] | [place], [place] | | | CARDIOLOGY | [address] | [address] | | + + + + + [...] | + + + + + | [facility] DEPARTMENT OF | [address] | [place] [address] | | | PATHOLOGY | [address] | | | + + + + + | [facility] DEPARTMENT OF | [address] | [place] [address] | | | PATHOLOGY | [address] [...] [facility] | [address] | [place], [place] | | | THERAPY | [address] | [address] | | + + + + + | [facility] | [address] | [place], [place] | | | THERAPY | [facility] | [address] | | + + + + + [...] | + + + + + | [facility] DEPARTMENT OF | [address] | [place] [address] | | | PATHOLOGY | [address] | | | + + + + + | [facility] | [address] | [place] [address] | | | PATHOLOGY | [address] [...] | + + + + + | [facility] | [address] | [place] [address] | | | PATHOLOGY | [address] | | | + + + + + | [facility] | [facility] [address] | [place] [address] | | | PATHOLOGY | [address] [...] view image for the detailed interpretation from [employer] results. | CARDIOLOGY | | | | + + + + + + + + | Performing | Address | City/State/Zipcode | Phone Number | | Organization | | | | + + + + + | [facility] | [address] | [place], [place] | | | CARDIOLOGY | [address] | [address] | | + + + + + | [facility] | [address] | [place], [place] | | | CARDIOLOGY | [facility] | [address] | | + + + + + [...] + + + | Please click | [facility] | | on view image for the detailed interpretation from [employer] results. | CARDIOLOGY | | | | + + + + + + + + | Performing | Address | City/State/Zipcode | Phone Number | | Organization | | | | + + + + + | [facility] | [address] [facility] | [place], [place] | | | CARDIOLOGY | [address] | [address] | | + + + + + | [facility] | [address] | [facility] [place] | | | CARDIOLOGY | [address] | [address] | | + + + + + [...] view image for the detailed interpretation from [employer] results. | CARDIOLOGY | | | | + + + + + + + + | Performing | Address | City/State/Zipcode | Phone Number | | Organization | | | | + + + + + | [facility] | [address] [facility] | [place], [place] | | | CARDIOLOGY | [address] | [address] | | + + + + + | [facility] | [address] [facility] | [place], [place] | | | CARDIOLOGY | [address] | [address] | | + + + + + [...] | + + + + + | [facility] | [address] [facility] | [place] [address] | | | PATHOLOGY | [address] | | | + + + + + | [facility] | [address] [facility] | [place] [address] | | | PATHOLOGY | [address] | | | + + + + + MAGNESIUM, PLASMA (05/11/2008 2:47 PM PST) + + + + + + | Component | Value | Ref Range | Performed | Pathologist | | | | | At | Signature | + + + + + + | MAGNESIUM,P | Combined. | 1.8 - 2.5 mg/dL | [facility] | | | LASMA | | | [...] | + + + + + | [facility] DEPARTMENT OF | [address] | [place] [address] | | | PATHOLOGY | [address] | | | + + + + + | [facility] DEPARTMENT OF | [address] | [place] [address] | | | PATHOLOGY | [address] [...] | + + + + + | [facility] DEPARTMENT | [address] | [place] [address] | | | PATHOLOGY | [address] | | | + + + + + | [facility] | [address] [facility] | [place] [address] | | | PATHOLOGY | [address] [...] | + + + + + | [facility] | [address] | [place] [address] | | | PATHOLOGY | [address] | | | + + + + + | [facility] | [address] [place] [address] [address] | [place] [address] | | | PATHOLOGY | [address] [...] DEPARTMENT OF | [address] | [place] [address] | | | PATHOLOGY | [address] | | | + + + + + | [facility] DEPARTMENT OF | [address] | [place] [address] | | | PATHOLOGY | [address] [...] | + + + + + | [facility] | [address] | [place] [address] | | | PATHOLOGY | [address] | | | + + + + + | [facility] | [facility] [address] | [place] [address] | | | PATHOLOGY | [address] [...] DEPARTMENT OF | [address] | [place] [address] | | | PATHOLOGY | [address] | | | + + + + + | [facility] | [address] | [place] [address] | | | PATHOLOGY | [address] [...] | + + + + + | [facility] | [address] [facility] | [place] [address] | | | PATHOLOGY | [address] | | | + + + + + | [facility] | [address] [facility] | [place] [address] | | | PATHOLOGY | [address] | | | + + + + + OPERATION RECORD (05/11/2008 12:00 AM PST) + + + | Narrative | Performed At | + + + | [id number] | | | [id number] | | | [id number] [address] | | | [phone] [id number] Date: | | | 05/11/2008 Attending | | | Surgeon: Jelena Carias M.D. | | | Senior Energy Market Coordinator(s): Arjun | | | Josephine Arciniega Preoperative [...] the patient's left side, a single large iron worker was | | | identified. The upper [...] first | | | identified lateral row iron worker. The fascia was then opened | | [...] Carias M.D. [facility] | | | / [id number] / [id number] / [id number] / | | | | | + + + + + | Procedure Note | + + | Jelena Carias MD - 05/11/2008 12:00 AM PST [id number] | | [id number] [place] | | [id number] Date: 05/11/2008 Attending Surgeon: Jelena | | Sachin Carias M.D. Senior Energy Market Coordinator(s): Arjun Arciniega M.D. Preoperative | | Diagnosis(es):Right [...] | | patient'sleft side, a single large iron worker was identified. The upper incisionwas | | [...] of the first | | identifiedlateral row iron worker. The fascia was then opened at this [...] room in stable condition. Jelena Carias M.D. [facility] / [id number] / [id number] / | | 03000 / T: 05/12/2008 | |muscle was divided [...] Carias M.D. | | | | | |[facility] / | |[id number] / [id number] / [id number] / | | | | | | [...] + +---------+ +---+--------+---+ | HYDROmorphone 0.5 mg/mL CERAMIC ARTIST | New Bag | 05/12/19 | | [...]
--- OUTSIDE RECORDS SUMMARY | ~2018-09-10 | XMS | Encounter Summary ---
Demographics + + + | Address | [address] | | | [place] [address] | + + + | Home Phone | | + + + | Preferred Language | Unknown | + + + | Marital Status | | + + + | Quaker Affiliation | Unknown | + + + | Race | Unknown | + + + | Ethnic Group | Unknown | + + + Author + + + | Author | [facility] | + + + | Organization | [facility] | + + + | Address | Unknown | + + + | Phone | Unavailable | + + + Support + + + + + | Name | Relationship | Address | Phone | + + + + + | Ted Casas | ECON | [address] | | | | | [place] | | | | | [address] | | + + + + + | Jersey Marroquin | ECON | [place] | | | | | [address] | | + + + + + Care Team Providers + +------+ + | Care Special Inspector Name | Role | Phone | + +------+ + | Joselin Jose PA-C | PCP | | + +------+ + Reason for Visit + + + | Reason | Comments | + + + | Medication Refill | | + + + Encounter Details +--------+--------+ + + + | Date | Type | Department | Care Team | Description | +--------+--------+ + + + | 09/05/ | Refill | [facility] | [facility] | | | 2019 | | [facility] | [facility] | | | | | [address] | | | | | | [place] | | | | | | [address] | | | | | | [phone] | | | +--------+--------+ + + + Social History + +-------+ [...] [place] | | | | | | [place] | | | | | | [id number] | | | | | | | | +--------+---------+ + + + as of this encounter Visit Diagnoses Not on filein this encounter"
--- OUTSIDE RECORDS SUMMARY | ~2018-09-10 | XMS | Encounter Summary ---
Demographics + + + | Address | [address] | | | [place] [address] | + + + | Home Phone | | + + + | Preferred Language | Unknown | + + + | Marital Status | | + + + | Cheondoism Affiliation | Unknown | + + + | Race | Unknown | + + + | Ethnic Group | Unknown | + + + Author + + + | Author | [facility] | + + + | Organization | [facility] | + + + | Address | Unknown | + + + | Phone | Unavailable | + + + Support + + + + + | Name | Relationship | Address | Phone | + + + + + | Ted Casas | ECON | [address] | | | | | [place] | | | | | [address] | | + + + + + | Jersey Marroquin | ECON | [place] | | | | | [address] | | + + + + + Care Team Providers + +------+ + | Care Drapery Hand Name | Role | Phone | + +------+ + | Joselin Jose PA-C | PCP | | + +------+ + Encounter Details +--------+ + + + + | Date | Type | Department | Care Team | Description | +--------+ + + + + | 07/30/ | Procedure | [facility] | | | | 2019 | Pass | [facility] | | | | | | MRI [address] | | | | | | [address] | | | | | | [place] [address] | | | | | | [phone] | | | +--------+ + + + [...] | | | | | | [place], [place] | | | | | | [address] | | | | | | | | +--------+---------+ + + + as of this encounter Visit Diagnoses Not on filein this encounter"
--- OUTSIDE RECORDS SUMMARY | ~2018-09-10 | XMS | Encounter Summary ---
Demographics + + + | Address | [address] | | | [place] [address] | + + + | Home Phone [...] + | Ted Casas | ECON | [address] | | | | | [place] | | | | | [address] | | + + + + + | Carmen Renteria | ECON | [address] | | | | | [place] | | | | | [address] | | + + + + + | Vince Loredo | ECON | [place] | | + + + + + Care Team Providers + +------+ + | Care Rural Health Consultant Name | Role | Phone | + +------+ + | Dominick Clark | PCP | | + +------+ + Encounter Details +--------+ + + + + | Date | Type | Department | Care Team | Description | +--------+ + + + + | 07/05/ | Prefabricator | [facility] | Erna Rainey, | | | 2016 | | Center - Medical | MD [address] | | | | | Oncology [address] | [place], [place] | | | | | Street The | [address] | | | | | [place] | [phone] | | | | | [address] | | | | | | [phone] | | | +--------+ + + + [...]
--- OUTSIDE RECORDS SUMMARY | ~2018-09-10 | XMS | Encounter Summary ---
Demographics + + + | Address | [address] | | | [place] [address] | + + + | Home Phone [...] + | Ted Patterson | ECON | [address] | | | | | [place] | | | | | [address] | | + + + + + | Carmen Renteria | ECON | [address] | | | | | [place] | | | | | [address] | | + + + + + | Vince Loredo | ECON | [place] | | + + + + + Care Team Providers + +------+ + | Care Integrated Logistics Programs Director Name | Role | Phone | [...] | | | | right female | [facility] | [facility] | | | | | breast, | [place], [place] | [place], | | | | | unspecified | [address] | [place] [address] | | | | | site of | Phone: | | | | | | breast | [phone] | | | | | | Procedures | Fax: | | | | | | PET CT SKULL | [phone] | | | | | | BASE [...] | | [address] [facility] | [facility], [place] | | | | | [facility] | [address] | | | | | [place], [place] | [phone] | | | | | [address] | | | +--------+ + + + [...] | + + + | [address] [place] [address] | [facility] | | [place], [place] [address] | DEPARTMENT OF | | [phone] | RADIOLOGY | | Name: PERRY PATTERSON Phys: MARISOL ALBERTO | | | : 1950 Sex: F CSN: | | | [id number] MR# [id number] Exam Date: | | | 07/04/2016 EXAM: [...] Transcribed Date/Time: 07/05/2016 01:05 | | | Workforce Services Representative: FLUENCY | | + + + + + | Procedure Note | + + | Interface, Radiology Results - 07/05/2016 1:09 AM PDT [address] | | [place] [address] | | Name: PERRY PATTERSON ANN Phys: REMYMARISOL S : 1950 Sex: F | | CSN: [id number] MR# [id number] Exam Date: 07/04/2016 EXAM:PET-CT CLINICAL | | [...] | | |Transcribed Date/Time: 07/05/2016 01:05 | |Workforce Services Representative: GORDO | | | | | | [...]
--- OUTSIDE RECORDS SUMMARY | ~2018-09-10 | XMS | Encounter Summary ---
Demographics + + + | Address | [address] | | | [place] [address] | + + + | Home Phone | | + + + | Preferred Language | Unknown | + + + | Marital Status | | + + + | Tenriism Affiliation | NON | + + + | Race | White | + + + | Ethnic Group | Not or | + + + Author + + + | Author | [facility] | + + + | Organization | [facility] | + + + | Address | Unknown | + + + | Phone | Unavailable | + + + Support + + + + + | Name | Relationship | Address | Phone | + + + + + | Ted Casas | ECON | [address] | | | | | [place] | | | | | [address] | | + + + + + | Carmen Renteria | ECON | [address] | | | | | [place] | | | | | [address] | | + + + + + | Vince Loredo | ECON | [place] | | + + + + + Care Team Providers + +------+ + | Care In Room Dining Server Name | Role | Phone | + [...] | | | | | nipple | [facility] [place] | [place], [place] | | | | | Procedures | [address] | [address] | | | | | REQUEST TO | Phone: | Phone: | | | | | SURGERY | [phone] | [phone] | | | | | CUSTOMER SERVICE REPRESENTATIVE TEACHER | Fax: | Fax: | | | | | [place] BREAST | [phone] | [phone] | | | | | RECONSTRUCT | [...] Dx) | | | | Surgery at [facility] [address] | [place], [place] | | | | | [address] Mail | [address] | | | | | Code: [facility] Center | [phone] | | | | | for Health and | | | | | | [facility] Floor | | | | | | [place], [place] | | | | | | [address] | | | | | | [phone] | | | +--------+---------+ + + + [...]
--- OUTSIDE RECORDS SUMMARY | ~2018-09-10 | XMS | Encounter Summary ---
Demographics + + + | Address | [address] | | | [place] [address] | + + + | Home Phone | | + + + | Preferred Language | Unknown | + + + | Marital Status | | + + + | Buddhist Affiliation | Unknown | + + + | Race | Unknown | + + + | Ethnic Group | Unknown | + + + Author + + + | Author | [facility] | + + + | Organization | [facility] | + + + | Address | Unknown | + + + | Phone | Unavailable | + + + Support + + + + + | Name | Relationship | Address | Phone | + + + + + | Ted Casas | ECON | [address] | | | | | [place] | | | | | [address] | | + + + + + | Jersey Marroquin | ECON | [place] | | | | | [address] | | + + + + + Care Team Providers + +------+ + | Care Wolf Hunter Name | Role | Phone | + [...] [place] | | | | | | [address] | | | | | | [phone] | | | +--------+--------+ + + + [...] [place] | | | | | | [id number] | | | | | | | | +--------+---------+ + + + as of this encounter Visit Diagnoses Not on filein this encounter"
--- OUTSIDE RECORDS SUMMARY | ~2018-09-10 | XMS | Encounter Summary ---
Demographics + + + | Address | [address] | | | [place] [address] | + + + | Home Phone [...] + | Ted aCsas | ECON | [address] | | | | | [place] | | | | | [address] | | + + + + + | Carmen Renteria | ECON | [address] | | | | | [place] | | | | | [address] | | + + + + + | Vince Loredo | ECON | [place] | | + + + + + Care Team Providers + +------+ + | Care Break Out Worker Name | Role | Phone | [...] [place], [place] | | | | | [place] | [address] | | | | | [place], [place] | [phone] | | | | | [address] | | | | | | [phone] | | | +--------+--------+ + + + [...]
--- OUTSIDE RECORDS SUMMARY | ~2018-09-10 | XMS | Encounter Summary ---
Demographics + + + | Address | [address] | | | [place] [address] | + + + | Home Phone [...] + | Ted Patterson | ECON | [address] | | | | | [place] | | | | | [address] | | + + + + + | Carmen Renteria | ECON | [address] | | | | | [place] | | | | | [address] | | + + + + + | Vince Loredo | ECON | [place] | | + + + + + Care Team Providers + +------+ + | Care Mixing Operator Name | Role | Phone | [...] [place] | | | | | [address] | [address] | | | | | | [phone] | | | | | | | [...] Jakob Rainey - 08/21/2007 4:47 AM PDT [facility] [address] [place] [address] PERRY PATTERSON DATE OF SERVICE: August 20, [...] if necessary for follow-up. XF/MedQ PERRY PATTERSON [id number] SERVICE DATE: 08/20/07 /[id number] cc: Jem Gregory Electronically Signed X MD LEONARDO Brown LEE ANN A [id number] SERVICE DATE: 08/20/07 12 :12 PM PDTFu, Erna Waldron MD - 04/24/2007 3:02 PM [facility]Y [address] [place] [address] PERRY PATTERSON DATE OF SERVICE: April 24, 2007 DIAGNOSIS: Stage IB breast cancer. INTERVAL HISTORY: The patient had completion mastectomy after initial excision biopsy. The tumor was ER and SD strongly positive (90%), HER2/derek negative by FISH, [...] Stage IB breast cancer, strong ER and SD positive, HER2 negative. DISCUSSION: Her 10-year relapse [...] Return in 4 months for followup. PAKO/Juan /[id number] PERRY PATTERSON [id number] SERVICE DATE: 04/24/07 cc: Dr. Doron Gregory Electronically Signed X MD LEONARDO Brown LEE ANN A [id number] SERVICE DATE: 04/24/07 12 :07 PM Sampson, Erna Waldron MD - 04/02/2007 12:36 PM [facility] MED[facility] ON[facility]Y [address] [place] [address] PERRY PATTERSON DATE OF ADMISSION: 04/01/2007 REFERRING [...] the inked margins of excision. Immunohistochemistry was ER/SD 90% positive, HER2/derek studies are pending. 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 She is , and lives with her in [place]. She has 3 daughters and 3 stepchildren. She denies current tobacco use, stating she quit smoking 2 years ago. Prior to that, she smoked for 35 years. She admits to occasional social drinking. REVIEW OF SYSTEMS: She has no chills or fever. She denies unexplained weight loss. 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 She has no upper respiratory LEONARDO,PERRY Cardenas [id number] SERVICE DATE: 04/01/07 complaints. She has no [...] in size. The tumor is ER and SD 90% positive, HER2 still pending. The tumor [...] questions were answered satisfactorily. PLAN: PERRY PATTERSON [id number] SERVICE DATE: 04/01/07 1. The patient will [...] you very much for this consultation. NV/MedQ /[id number] XF/MedQ /[id number] cc: Dr. Doron Parish Electronically Signed X MD LEONARDO Brown LEE ANN A [id number] SERVICE DATE: 04/01/07 12 :05 PM PDTdocumented in this encounter Plan of Treatment Not on filedocumented as of this encounter Visit Diagnoses Not on filedocumented in this encounter"
--- OUTSIDE RECORDS SUMMARY | ~2018-09-10 | XMS | Encounter Summary ---
Demographics + + + | Address | [address] | | | [place] [address] | + + + | Home Phone [...] + + + | Author | [facility] | + + + | Organization | [facility] | + + + | Address | Unknown | + + + | Phone | Unavailable | + + + Support + + + + + | Name | Relationship | Address | Phone | + + + + + | Ted Casas | ECON | [address] | | | | | [place] | | | | | [address] | | + + + + + | Carmen Renteria | ECON | [address] | | | | | [place] | | | | | [address] | | + + + + + | Vince Loredo | ECON | [place] | | + + + + + Care Team Providers + +------+ + | Care Supervisor Electrolytic Tinning Name | Role | Phone | + [...] | | | | | nipple | [facility] [place] | Mail Code: | | | | | Procedures | [address] | [facility] | | | | | REQUEST TO | Phone: | for Health | | | | | SURGERY | [phone] | and Healing, | | | | | PIPE FITTER MAINTENANCE | Fax: | 5th Floor | | | | | [place] | [phone] | [facility] [place] | | | | | NIPPLE/AREOL | | [address] | | | | | A | | Phone: | | | | | RECONSTRUCTI | | [phone] | | | | | ON FL | | | | | | | REVISE | | | | | | | BREAST | | | | | | | RECONSTRUCTI | | | | | | | ON FL EXC | | | | | | | SKIN BENIG | | | | | | | 1.1-2CM | | | | | | | TRUNK,ARM,LE | | | | | | | G FL LAYR | | | | | | [...] Dx) | | | | Surgery at [facility] [address] | [facility] [place] | | | | | [address] Mail | [address] | | | | | Code: [facility] Center | [phone] | | | | | for Health and | | | | | | [facility] Floor | | | | | | [place], [place] | | | | | | [address] | | | | | | [phone] | | | +--------+---------+ + + + [...]
--- OUTSIDE RECORDS SUMMARY | ~2018-09-10 | XMS | Encounter Summary ---
Demographics + + + | Address | [address] | | | [place] [address] | + + + | Home Phone [...] + | Ted Casas | ECON | [address] | | | | | [place] | | | | | [address] | | + + + + + | Carmen Renteria | ECON | [address] | | | | | [place] | | | | | [address] | | + + + + + | Vince Loredo | ECON | [place] | | + + + + + Care Team Providers + +------+ + | Care Grooming Assistant Name | Role | Phone | + +------+ + | Adrián Gregory MD | PCP | | + +------+ + Encounter Details +--------+ + + + + | Date | Type | Department | Care Team | Description | +--------+ + + + + | 07/07/ | Results | NON-[facility] EP[facility] | Erna Rainey, | | | 2009 | Only | Department | MD [address] | | | | | | [address] [place] | | | | | | [address] | | | | | | [phone] | | | | | | | [...] | CBC W/DIFF, REFLEX | Routin | 07/07/2009 | | Results for this | | | e | 12:13 PM | | procedure are in the | | | | PDT | | results section. | + +--------+ + + + | COMPLETE METABOLIC | Routin | 07/07/2009 | | Results for this | | SET | e | 12:12 PM | | procedure are in the | | (NA,K,CL,CO2,BUN,CRE | | PDT | | results section. | | AT,GLUC,CA,AST,ALT,B | | | | | | VINCE TOTAL,ALK | | | | | | PHOS,ALB,PROT TOTAL) | | | | | + +--------+ + + + documented in this encounter Results CBC W/DIFF, REFLEX (07/07/2009 12:13 PM PDT) + +---------+ + + + | Component | Value | Ref Range | Performed | Pathologist | | | | | At | Signature | + +---------+ + + + | WHITE BLOOD | 5.2 | 4.3 - 11.0 X10 | [facility] | | | CELL COUNT | | 3/ul | A MEDICAL | | | | | | CENTER | | + +---------+ + + + | HEMOGLOBIN | 12.8 | 12.0 - 16.0 | [facility] | | | | | g/dL | A MEDICAL | | | | | | CENTER | | + +---------+ + + + | RED BLOOD | 4.41 | 4.2 - 5.4 X10 | [facility] | | | CELL COUNT | | 6/uL | A MEDICAL | | | | | | CENTER | | + +---------+ + + + | HEMATOCRIT | 38.2 | 38.0 - 47.0 % | [facility] | | | | | | A MEDICAL | | | | | | CENTER | | + +---------+ + + + | MCV | 87.0 | 82 - 100 fl | [facility] [...] +---------+ + + + | MCHC | 33.6 | 32 - 36 g/dL | [facility] [...] +---------+ + + + | PLATELET | 162 | 150 - 450 X10 3 | [facility] | | | COUNT | | | A MEDICAL | | | | | | CENTER | | + +---------+ + + + | MPV | 7.5 (L) | 9.0 - 12.0 fL | [facility] | | | | | | A MEDICAL | | | | | | CENTER | | + +---------+ + + + | NEUTROPHIL | 47.0 | 40 - 80 % | [facility] | | | % | | | A MEDICAL | | | | | | CENTER | | + +---------+ + + + | NEUTROPHIL | 2.4 | 1.9 - 8.0 x10 | [facility] | | | # | | 3/UL | A MEDICAL | | | | | | CENTER | | + +---------+ + + + | LYMPHOCYTE | 42.6 | 20 - 50 % | [facility] | | | % | | | A MEDICAL | | | | | | CENTER | | + +---------+ + + + | LYMPHOCYTE | 2.2 | 0 - 6 x10 3/UL | [facility] | | | # | | | A MEDICAL | | | | | | CENTER | | + +---------+ + + + | EOS % | 3.8 | 0 - 5 % | [facility] [...] + + + | MONOCYTE % | 6.0 | 2 - 10 % | [facility] | | | | | | A MEDICAL | | | | | | CENTER | | + +---------+ + + + | MONOCYTE # | 0.3 | 0 - 0.6 x10 | [facility] | | | | | 3/UL | A MEDICAL | | | | | | CENTER | | + +---------+ + + + | BANDS % | 0.7 | 0 - 7 % | [facility] | | | | | | A MEDICAL | | | | | | CENTER | | + +---------+ + + + | BANDS # | 0.0 (L) | 0.00 - 0.70 x10 | [facility] | | | | | 3/UL [...] | + + + + + | [facility] | And | [place] [address] | | | MEDICAL CENTER | Streets | | | + + + + + COMPLETE METABOLIC SET (NA,K,CL,CO2,BUN,CREAT,GLUC,CA,AST,ALT,BILI TOTAL,ALK PHOS,ALB,PROT TOTAL) (07/07/2009 12:12 PM PDT) + + + + + + | Component | Value | Ref Range | Performed | Pathologist | | | | | At | Signature | + + + + + + | SODIUM, | 135 (L) | 137 - 146 MEQ/L | [facility] | | | PLASMA | | [...] + + + + | CO2 | 24 | 22 - 28 MEQ/L | [facility] | | | | | | A MEDICAL | | | | | | CENTER | | + + + + + + | CHLORIDE, | 104 | 98 - 106 MEQ/L | [facility] | | | PLASMA | | | A MEDICAL | | | (LAB) | | | CENTER | | + + + + + + | GLUCOSE, | 240 (H) | 70 - 105 MG/DL | [facility] | | | PLASMA | | | A MEDICAL | | | (LAB) | | | CENTER | | + + + + + + | BUN, PLASMA | 18 | 8 - 30 MG/DL | [facility] [...] + + + + | BUN/CREATIN | 33 (H) | 6 - 20 RATIO | [facility] | | | INE RATIO | | | A MEDICAL | | | | | | CENTER | | + + + + + + | CALCIUM, | 9.0 | 8.5 - 10.8 | [facility] | | | PLASMA | | MG/DL | A MEDICAL | | | (LAB) | | | CENTER | | + + + + + + | AST(SGOT) | 24 | 10 - 41 U/L | [facility] | | | | | | A MEDICAL | | | | | | CENTER | | + + + + + + | ALT (SGPT) | 24 | 7 - 51 U/L | [facility] | | | | | | A MEDICAL | | | | | | CENTER | | + + + + + + | ALK PHOS | 54 | 40 - 180 U/L | [facility] | | | | | | A MEDICAL | | | | | | CENTER | | + + + + + + | TOTAL | 7.1 [...] + + + + | BILIRUBIN | 0.6 [...] + + + + | FASTING? | 15MIN [...] + | [facility] | And | [place] [address] | | | [facility] | Streets | | | + + + + + documented in this encounter Visit Diagnoses Not on filedocumented in this encounter"
--- OUTSIDE RECORDS SUMMARY | ~2018-09-10 | XMS | Encounter Summary ---
Demographics + + + | Address | [address] | | | [place] [address] | + + + | Home Phone [...] + | Ted Casas | ECON | [address] | | | | | [place] | | | | | [address] | | + + + + + | Carmen Renteria | ECON | [address] | | | | | [place] | | | | | [address] | | + + + + + | Vince Loredo | ECON | [place] | | + + + + + Care Team Providers + +------+ + | Care Collar Pointer Name | Role | Phone | + [...] [place] | | | | | | [address] | | | | | | [phone] | | | | | | | [...] 0.3 | 0.1 - 1.3 x10 | [facility] | | | | | 3/UL | A MEDICAL | | | | | | CENTER | | + +---------+ + + + + + | Specimen | + + | | + + + + + + + | Performing | Address | City/State/[facility] | Phone Number | | Organization | | | | + + + + + | [facility] | And | [place] [address] | [phone] | | MEDICAL CENTER | Streets | [...] + + | [facility] | [address] [place] | [place] [address] | [phone] | | MEDICAL CENTER | Streets | | | + + + + + documented in this encounter Visit Diagnoses Not on filedocumented in this encounter"
--- OUTSIDE RECORDS SUMMARY | ~2018-09-10 | XMS | Encounter Summary ---
Demographics + + + | Address | [address] | | | [place] [address] | + + + | Home Phone [...] + | Ted Casas | ECON | [address] | | | | | [place] | | | | | [address] | | + + + + + | Carmen Renteria | ECON | [address] | | | | | [place] | | | | | [address] | | + + + + + | Vince Loredo | ECON | [place] | | + + + + + Care Team Providers + +------+ + | Care Search Marketing Coordinator Name | Role | Phone | + +------+ + | Adrián Gregory MD | PCP | | + +------+ + Reason for Visit + + + | Reason | Comments | + + + | Postoperative visit | R breast recon with TRAM flap. | + + + Encounter Details +--------+---------+ + + + | Date | Type | Department | Care Team | Description | +--------+---------+ + + + | 06/30/ | Office | Plastic and | Jelena Carias, | Open Wound Anterior | | 2008 | Visit | Reconstructive | [address] | Abdominal Wall | | | | Surgery at [facility] [address] | [place], [place] | (Primary Dx) | | | | [address] Mail | [address] | | | | | Code: [facility] Center | [phone] | | | | | for Health and | | | | | | Healing, 5th Floor | | | | | | [place], [place] | | | | | | [address] | | | | | | [phone] | | | +--------+---------+ + + + [...] encounter Progress Notes Jelena Carias MD - 06/30/2008 5:14 PM PDTSubjective: Roman Casas presents 2 months status post TRAM flap to R breast with Jelena Carias MD. Current concerns include: Open wound in midline of abdominal incision. The patient went to the ED last Saturday because of concern for infection. The wound drains some purulent material ; the patient cannot recognize fevers because of frequent hot flashes. She also complains of tenderness on the medial, superior and superolateral portions of her R breast. Pain controlled by: percocet Objective: NAD R breast incisions c/d/i; medial, superior and superolateral portions of R breast are firm and tender Navel appears intact, erythematous but healing Open wound: midline lower abdominal 3 x 0.5cm wound with peripheral erythema and induration ; pale fat at wound base appearing necrotic; no evidence of granulation tissue Assessment: 2 months s/p TRAM to R breast, with fat necrosis in R breast and around abdominal incision, and open wound in midline. Plan: -avoid abx at this point because of significant pt history of allergy; no obvious infection present -pt advised to continue washing wound with hibiclens and dressing with zeroform and gauze; expect that wound will eventually fill in with granulation tissue -pt counseled that tenderness in areas of fat necrosis will resolve with time Pt will follow up in 1 month with Jelena Carias MD, sooner prn. documented in this en counter Plan of Treatment Not on filedocumented as of this encounter Visit Diagnoses + + | Diagnosis | + + | Open wound anterior abdominal wall - Primary Open wound of abdominal wall, anterior, | | without mention of complication | + + documented in this encounter"
--- OUTSIDE RECORDS SUMMARY | ~2018-09-10 | XMS | Encounter Summary ---
Demographics + + + | Address | [address] | | | [place] [address] | + + + | Home Phone [...] + | Ted Casas | ECON | [address] | | | | | [place] | | | | | [address] | | + + + + + | Carmen Renteria | ECON | [address] | | | | | [place] | | | | | [address] | | + + + + + | Vince Loredo | ECON | [place] | | + + + + + Care Team Providers + +------+ + | Care American Board Certified Orthotist Name | Role | Phone | + [...] [place], [place] | | | | | [facility] | [address] | | | | | [place], [place] | [phone] | | | | | [address] | | | | | | [phone] | | | +--------+--------+ + + + [...]
--- OUTSIDE RECORDS SUMMARY | ~2018-09-10 | XMS | Encounter Summary ---
Demographics + + + | Address | [address] | | | [place] [address] | + + + | Home Phone [...] + | Ted Patterson | ECON | [address] | | | | | [place] | | | | | [address] | | + + + + + | Carmen Renteria | ECON | [address] | | | | | [place] | | | | | [address] | | + + + + + | Vince Loredo | ECON | [place] | | + + + + + Care Team Providers + +------+ + | Care Personalized Living Manager Nurse Name | Role | Phone | + [...] | | | | right female | [facility] | [facility] | | | | | breast, | [place], [place] | [place], | | | | | unspecified | [address] | [place] [address] | | | | | site of | Phone: | | | | | | breast | [phone] | | | | | | Procedures | Fax: | | | | | | PET CT SKULL | [phone] | | | | | | BASE [...] | | [address] [facility] | [facility], [place] | | | | | [facility] | [address] | | | | | [place], [place] | [phone] | | | | | [address] | | | +--------+ + + + [...] | + + + | [address] [place] [address] | [facility] | | [place], [place] [address] | DEPARTMENT OF | | [phone] | RADIOLOGY | | Name: PERRY PATTERSON Phys: MARISOL ALBERTO | | | : 1950 Sex: F CSN: | | | [id number] MR# [id number] Exam Date: | | | 07/04/2016 EXAM: [...] Transcribed Date/Time: 07/05/2016 01:05 | | | Peer Educator: FLUENCY | | + + + + + | Procedure Note | + + | Interface, Radiology Results - 07/05/2016 1:09 AM PDT [address] | | [place] [address] | | Name: PERRY PATTERSON ANN Phys: REMYMARISOL S : 1950 Sex: F | | CSN: [id number] MR# [id number] Exam Date: 07/04/2016 EXAM:PET-CT CLINICAL | | [...] | | |Transcribed Date/Time: 07/05/2016 01:05 | |Peer Educator: GORDO | | | | | | [...]
--- OUTSIDE RECORDS SUMMARY | ~2018-09-10 | XMS | Encounter Summary ---
Demographics + + + | Address | [address] | | | [place] [address] | + + + | Home Phone [...] + | Ted Casas | ECON | [address] | | | | | [place] | | | | | [address] | | + + + + + | Carmen Renteria | ECON | [address] | | | | | [place] | | | | | [address] | | + + + + + | Vince Loredo | ECON | [place] | | + + + + + Care Team Providers + +------+ + | Care Power Press Tender Name | Role | Phone | [...] | Closed | | | | | [facility] | | | | | | | Stay [address] | | | | | | | [facility] | | | | | | | [facility] | | | | | | [facility] | | | | [facility] | | | | | | | [place], [place] | | | | | | | [address] Phone: | | | | | | | [phone] | | | | | | | Fax: | | | | | | | [phone] | +--------+--------+ + + + + Encounter Details +--------+ + + + + | Date | Type | Department | Care Team | Description | +--------+ + + + + | 09/21/ | Hospital | [facility] | Jelena Carias, | | | 2008 | Encounter | STAY [address] | MD [address] | | | | | [facility] | [place], [place] | | | | | [facility] AND | [address] | | | | | HEALING [place], | [phone] | | | | | [place] [address] | | | | | | [phone] | | | +--------+ + + + [...] + + + | Blood Pressure | 108/59 | 09/21/2008 6:00 PM | | | | | PDT | | + + + + + | Pulse | 107 | 09/21/2008 6:00 PM | | | | | PDT | | + + + + + | Temperature | 37.4 C (99.3 F) | 09/21/2008 5:30 PM | | | | | PDT | | + + + + + | Respiratory Rate | 16 | 09/21/2008 6:00 PM | | | | | PDT | | + + + + + | Oxygen Saturation | 94% | 09/21/2008 6:00 PM | | | | | PDT | | + + + + + | Inhaled Oxygen | - | - | | | Concentration | | | | + + + + + | Weight | 74.8 kg (165 lb) | 09/21/2008 6:00 AM | | | | | PDT | | + + + + + | Height | 157.5 cm (5' 2") | 09/21/2008 6:00 AM | | | | | PDT | | + + + + + | Body Mass Index | 30.18 | 09/21/2008 6:00 AM | | | | | PDT | | + + + + + documented in this encounter Discharge Summaries Carlton, Wagner - 09/21/2008 6:25 PM PDT documented in this encounter Discharge Instructions Instructions Danielle Hooper - 09/21/2008 Nursing Discharg e Instructions General discharge instructions for same-day procedure patients: Do not stay alone; a responsible person should be with you. Do not drive or drink alcohol for 24 hours or while on narcotic pain medication. Do not make any important personal or business decisions for 24 hours or while on narcotic pain medication. Advance diet to regular if no nausea. Eat lightly and avoid large, high fat or highly spic ed meals for 24-48 hours. IV site care instructions: Monitor IV site for pain, redness, swelling or drainage. If present, call your physician i mmediately. Minor redness and tenderness may be treated with warm, moist compresses for 24-48 hours. I f still red and tender after this, notify your physician. Call your provider if you experience: Difficulty breathing or unusual shortness of breath Persistent nausea or vomiting Excessive bleeding, drainage at the operative site Fever of 101 or greater, chills, increased pain that is not relieved by pain medication. Last oral pain medication: Oxycodone 10mg taken at 5:45PM Home care instructions:Home care after breast surgery Do Not remove bandage. Continue regular medication routine this evening. Remove scopolomine patch tomorrow or the next day. Follow-up appointment: Call to make appointment on Tuesday 09/26 for bandage change. documented in this encounter Medications at Time [...] + + + | ANESTHESIA/SEDATION | | 09/21/2008 | | Results for this | | | | 6:25 PM | | procedure are in the | | | | PDT | | results section. | + +--------+ + + + | ORDERS OTHER | | 09/21/2008 | | Results for this | | | | 6:25 PM | | procedure are in the | | | | PDT | | results section. | + +--------+ + + + | OPERATION RECORD | | 09/21/2008 | | Results for this | | | | 12:00 AM | | procedure are in the | | | | PDT | | results section. | + +--------+ + + + documented in this encounter Results ORDERS OTHER (09/21/2008 6:25 PM PDT) + + + | Narrative | Performed At | + + + | | | + + + + + | Procedure Note | + + | Other, Faculty - 09/21/2008 6:25 PM PDT | | | + + ANESTHESIA/SEDATION (09/21/2008 6:25 PM PDT) + + + | Narrative | Performed At | + + + | | | + + + + + | Procedure Note | + + | Other, Faculty - 09/21/2008 6:25 PM PDT | | | + + OPERATION RECORD (09/21/2008 12:00 AM PDT) + + + | Narrative | Performed At | + + + | [id number] | | | [id number] | | | [id number] | | | A [id number] Date: | | | 09/21/2008 Attending | | | Surgeon: Jelena Carias M.D. | | | Hand Mold Maker(s): Maxx | | | Josephine Farooq Preoperative Diagnosis(es): Right mastectomy | | | defect, status post transverse rectus abdominus myocutaneous flap | | | reconstruction. Postoperative Diagnosis(es): Right mastectomy | | | defect, status post transverse rectus abdominus myocutaneous flap | | | reconstruction. Procedures Performed: Revision of right breast | | | reconstruction, right nipple-areolar complex reconstruction, and | | | scar revision of donor site. Anesthesia: General with | | | endotracheal tube. Indications: This 58-year-old woman is | | | several months status post delayed right breast reconstruction with | | | a pedicle TRAM flap. She has done well, however, has some areas | | | of fat necrosis and desires nipple-areolar complex | | | reconstruction. She will also undergo a dog ear removal of the | | | right lateral donor site as well as revision of her scar centrally. | | | Details of Procedure: The patient was marked in the preop area | | | for the planned revisions of the TRAM flap, the areas of fat | | | necrosis, and the dog ears to be removed. She was taken into the | | | operating room and underwent uncomplicated induction of general | | | anesthesia. She was placed in the supine position, and the entire | | | chest and abdomen were prepped and draped. A surgical pause was | | | done confirming the correct patient, planned procedure, presence of | | | necessary equipment, administration of the antibiotics, and | | | presence and functioning of her sequential compression devices. | | | We began with the revision of the TRAM flap. The medial aspect | | | of the flap inset suture line was reopened both along the superior | | | and the inferior aspects. The mastectomy flaps were then | | | re-elevated off the TRAM flap superiorly and inferiorly. Areas | | | of fat necrosis were excised from the upper inner quadrant and | | | additional skin from the skin paddle was deepithelialized. This | | | allowed the mastectomy flap to be advanced over the TRAM | | | flap. The area was irrigated out extensively and checked for | | | hemostasis and then closed with 3-0 Polysorb in the dermis and 4-0 | | | Biosyn as a subcuticular stitch in the skin. She was placed | | | into the sitting position, and the ideal nipple-areolar complex | | | position was then marked with a 42 mm cookie cutter. A skate flap | | | was then designed. The dog ear from the right lateral donor site | | | was also marked with a 45 mm cookie cutter, and the dog ear was | | | removed, and the skin that was excised was defatted and thinned for | | | a skin graft. The dog-ear site and donor site were closed | | | primarily with 3-0 Polysorb in the deep dermis and 4-0 Biosyn as a | | | subcuticular stitch in the skin. Centrally, just below the umbilicus | | | in her abdominal donor site scar, a 2 cm shallow sinus tract was | | | excised in an area of fat necrosis. This was irrigated out and | | | closed primarily with 3-0 Polysorb in the dermis and 4-0 Biosyn as | | | a subcuticular stitch. Finally, the nipple-areolar complex | | | reconstruction was done. The wings of the skate flap were | | | elevated in the dermal plane. Centrally, a random pattern skin | | | and subcutaneous fat flap was elevated. The wings of the skate | | | flap were wrapped around and inset with 5-0 Biosyn. The remainder | | | of the areolar defect was deepithelialized, and the prepared graft | | | was then placed over the defect. This was inset with 5-0 | | | Biosyn. A large bolster dressing was then applied. Dermabond | | | was applied over all of the suture lines and sterile dressings | | | applied. The patient tolerated the procedure well. There were | | | no complications. Sponge and needle counts were correct. No | | | specimens were sent. She was extubated in the operating room and | | | taken to the recovery room in stable condition. Jelena | | | Sachin Carias M.D. [facility] / [id number] / [id number] / [id number] / | | | | | + + + + + | Procedure Note | + + | Jelena Carias MD - 09/21/2008 12:00 AM PDT [id number] | | [id number] [address] [address] | | A [id number] Date: 09/21/2008 Attending Surgeon: | | Jelena Carias M.D. Hand Mold Maker(s): Maxx Farooq M.D. | | Preoperative Diagnosis(es):Right mastectomy defect, status post transverse rectus | | abdominusmyocutaneous flap reconstruction. Postoperative Diagnosis(es):Right mastectomy | | defect, status post transverse rectus abdominusmyocutaneous flap reconstruction. | | Procedures Performed:Revision of right breast reconstruction, right nipple-areolar | | complexreconstruction, and scar revision of donor site. Anesthesia:General with | | endotracheal tube. Indications:This 58-year-old woman is several months status post | | delayed right breastreconstruction with a pedicle TRAM flap. She has done well, | | however, hassome areas of fat necrosis and desires nipple-areolar complexreconstruction. | | She will also undergo a dog ear removal of the rightlateral donor site as well as | | revision of her scar centrally. Details of Procedure:The patient was marked in the | | preop area for the planned revisions of theTRAM flap, the areas of fat necrosis, and the | | dog ears to be removed. Shewas taken into the operating room and underwent | | uncomplicated induction ofgeneral anesthesia. She was placed in the supine position, | | and the entirechest and abdomen were prepped and draped. A surgical pause was | | doneconfirming the correct patient, planned procedure, presence of necessaryequipment, | | administration of the antibiotics, and presence and functioningof her sequential | | compression devices. We began with the revision of the TRAM flap. The medial aspect of | | the flapinset suture line was reopened both along the superior and the inferioraspects. | | The mastectomy flaps were then re-elevated off the TRAM flapsuperiorly and inferiorly. | | Areas of fat necrosis were excised from theupper inner quadrant and additional skin | | from the skin paddle wasdeepithelialized. This allowed the mastectomy flap to be | | advanced over theTRAM flap. The area was irrigated out extensively and checked | | forhemostasis and then closed with 3-0 Polysorb in the dermis and 4-0 Biosynas a | | subcuticular stitch in the skin. She was placed into the sitting position, and the | | ideal nipple-areolarcomplex position was then marked with a 42 mm cookie cutter. A | | skate flapwas then designed. The dog ear from the right lateral donor site was | | alsomarked with a 45 mm cookie cutter, and the dog ear was removed, and theskin that was | | excised was defatted and thinned for a skin graft. Thedog-ear site and donor site were | | closed primarily with 3-0 Polysorb in thedeep dermis and 4-0 Biosyn as a subcuticular | | stitch in the skin.Centrally, just below the umbilicus in her abdominal donor site scar, | | a 2cm shallow sinus tract was excised in an area of fat necrosis. This wasirrigated | | out and closed primarily with 3-0 Polysorb in the dermis and 4-0Biosyn as a subcuticular | | stitch. Finally, the nipple-areolar complex reconstruction was done. The wings ofthe | | skate flap were elevated in the dermal plane. Centrally, a randompattern skin and | | subcutaneous fat flap was elevated. The wings of theskate flap were wrapped around and | | inset with 5-0 Biosyn. The remainder ofthe areolar defect was deepithelialized, and the | | prepared graft was thenplaced over the defect. This was inset with 5-0 Biosyn. A | | large bolsterdressing was then applied. Dermabond was applied over all of the | | suturelines and sterile dressings applied. The patient tolerated the procedurewell. | | There were no complications. Sponge and needle counts were correct.No specimens were | | sent. She was extubated in the operating room and takento the recovery room in stable | | condition. Jelena Carias M.D.[facility] / [id number] / [id number] / [id number] / T: | | 09/21/2008 | |equipment, administration of the antibiotics, and presence and functioning | |of her sequential compression devices. | | | | | |We began with the revision of the TRAM flap. The medial aspect of the flap | |inset suture line was reopened both along the superior and the inferior | |aspects. The mastectomy flaps were then re-elevated off the TRAM flap | |superiorly and inferiorly. Areas of fat necrosis were excised from the | |upper inner quadrant and additional skin from the skin paddle was | |deepithelialized. This allowed the mastectomy flap to be advanced over the | |TRAM flap. The area was irrigated out extensively and checked for | |hemostasis and then closed with 3-0 Polysorb in the dermis and 4-0 Biosyn | |as a subcuticular stitch in the skin. | | | | | |She was placed into the sitting position, and the ideal nipple-areolar | |complex position was then marked with a 42 mm cookie cutter. A skate flap | |was then designed. The dog ear from the right lateral donor site was also | |marked with a 45 mm cookie cutter, and the dog ear was removed, and the | |skin that was excised was defatted and thinned for a skin graft. The | |dog-ear site and donor site were closed primarily with 3-0 Polysorb in the | |deep dermis and 4-0 Biosyn as a subcuticular stitch in the skin. | |Centrally, just below the umbilicus in her abdominal donor site scar, a 2 | |cm shallow sinus tract was excised in an area of fat necrosis. This was | |irrigated out and closed primarily with 3-0 Polysorb in the dermis and 4-0 | |Biosyn as a subcuticular stitch. | | | | | |Finally, the nipple-areolar complex reconstruction was done. The wings of | |the skate flap were elevated in the dermal plane. Centrally, a random | |pattern skin and subcutaneous fat flap was elevated. The wings of the | |skate flap were wrapped around and inset with 5-0 Biosyn. The remainder of | |the areolar defect was deepithelialized, and the prepared graft was then | |placed over the defect. This was inset with 5-0 Biosyn. A large bolster | |dressing was then applied. Dermabond was applied over all of the suture | |lines and sterile dressings applied. The patient tolerated the procedure | |well. There were no complications. Sponge and needle counts were correct. | |No specimens were sent. She was extubated in the operating room and taken | |to the recovery room in stable condition. | | | | | | | | | |Jelena Carias M.D. | |JE / | |[id number] / [id number] / [id number] / | | | | | | | | | | | | | | | | | | | | | + + documented in this encounter Visit Diagnoses Not on filedocumented in this encounter
--- OUTSIDE RECORDS SUMMARY | ~2018-09-10 | XMS | Encounter Summary ---
Demographics + + + | Address | [address] | | | [place] [address] | + + + | Home Phone | | + + + | Preferred Language | Unknown | + + + | Marital Status | | + + + | Gnosticist Affiliation | NON | + + + [...] + | Ted Casas | ECON | [address] | | | | | [place] | | | | | [address] | | + + + + + | Carmen Renteria | ECON | [address] | | | | | [place] | | | | | [address] | | + + + + + | Vince Loredo | ECON | [place] | | + + + + + Care Team Providers + +------+ + | Care Restaurant Managing Partner Name | Role | Phone | + [...] Description | +--------+--------+ + + + | 03/21/ | Refill | [facility] | Eloisa Mota PRODUCT DEVELOPMENT SCIENTIST | Refill Request | | 2016 | | [place] [facility] | [address] | | | | | Oncology [address] | [facility] [place] [address] | | | | | [place] | [phone] | | | | | [place], [place] | | | | | | [address] | | | | | | [phone] | | | +--------+--------+ + + + [...]
--- OUTSIDE RECORDS SUMMARY | ~2018-09-10 | XMS | Encounter Summary ---
Demographics + + + | Address | [address] | | | [place] [address] | + + + | Home Phone | | + + + | Preferred Language | Unknown | + + + | Marital Status | | + + + | Voodoo Affiliation | NON | + + + | Race | White | + + + | Ethnic Group | Not or | + + + Author + + + | Author | [facility] | + + + | Organization | [facility] | + + + | Address | Unknown | + + + | Phone | Unavailable | + + + Support + + + + + | Name | Relationship | Address | Phone | + + + + + | Ted Casas | ECON | [address] | | | | | [place] | | | | | [address] | | + + + + + | Carmen Renteria | ECON | [address] | | | | | [place] | | | | | [address] | | + + + + + | Vince Loredo | ECON | [place] | | + + + + + Care Team Providers + +------+ + | Care Calculation Reviewer Name | Role | Phone | + [...] Visit | Medicine Clinic at | A, MOLD INSERT CHANGER [address] | (Primary Dx) | | | | [facility] 4th Floor [address] | [address] | | | | | [address] | [place], [place] | | | | | Code: [address] | [address] | | | | | for Health and | [phone] | | | | | [facility],4th Floor | | | | | | [place], [place] | | | | | | [address] | | | | | | [phone] | | | +--------+---------+ + + + [...] once daily in e morning. TAKE IF Dvokpj-bcmvfxvjc-rtzdtwcptgzvy (PERCOCET) 5-325 mg Oral Tablet, Take 1 [...] from anyone by 3:00 PM please call [phone] for vhhex-fl-yurk. PARKING Parking for patients and visitors is available in the [facility] Parking structure located across from the [...] prior to your surgery. PRODUCTS CONTAINING ASPIRIN Tammi-Burns, Anacin, Anexsia with Codeine, Andynos, Aspirin, Aspirin suppositories, Ascrip tin, Aspergum, Axotal, B-A-C, Baby Aspirin, Emy, BC Powder, Bexophene, Buffaprin, Bufferin , Buffinol, Cama-Arthritis Strength, Congespirin, Hebron, Coricidin, Damason, Darvon, Dristan, Jocelyn-Gesic, Digel, Dolprin #3 Tablets, Donatab, Doxaphene, Duragesic, Easprin, Ecotrin, Emag rin Forte, Emiprin, Emprazil, Equagesic, Equazine M, Excedrin, Fiogesic, Fiorgen PH, Fiorice t, Fiorinal, 4-Way Cold Tablet Gemnisyn, Indocin, Liquprin, Lortab ASA, Magnaprin, Marnal, Meprobamate, Midol, Momentum, N orgesic, Arlington, Orphengesic, Pabalate, P-A-C, Percodan, Presalin, Robaxasil, Roxiprin, Alex eto, Salocol SK-65 Compound, Sine-Aid, Sine-Off,, Sangamon, Supac, Talwin Compound, Trigesic, Tolectin , Traiminicin, Vanquish, ZORprin, Zomax PRODUCTS CONTAINING IBUPROFEN Advil, Aleve, Haltran, Medipren, Midol, Motrin, Naproxyn, Nuprin, Rufen OTHER PRODUCTS WHICH MAY PROMOTE BLEEDING Vitamin E, Gingko Biloba, Marine Fatty Acids, Blackwood-3 Fish Oil Supplements documented in this encounter Progress Notes Antoinette Cotto - 09/03/2008 3:24 PM PDTSee Scanned H&P. documented in this e ncounter Plan of Treatment + + +--------+ + + | Name | Type | Priori | Associated Diagnoses | Order Schedule | | | | ty | | | + + +--------+ + + | MS COLLECTION VENOUS | Procedures | Routin | [...] Performed At | + + + | [id number] Estimated GFR > 60 mL/min/1.73 sq m if non- | [facility] | | [place] [id number] Estimated GFR > 60 mL/min/1.73 sq m if | DEPARTMENT OF | | [place] GFR is estimated using the MDRD equation [...] + + | Performing | Address | City/[facility] | Phone Number | | Organization | | | | + + + + + | [facility] | [address] [place] [address] | [place] [address] | | | PATHOLOGY | [address] | | | + + + + + | [facility] | [address] [place] [address] | [place] [address] | | | PATHOLOGY | [address] [...] DEPARTMENT OF | [address] | [place] [address] | | | PATHOLOGY | [address] | | | + + + + + | [facility] DEPARTMENT | [address] | [place] [address] | | | PATHOLOGY | [address] [...] view image for the detailed interpretation from [employer] results. | CARDIOLOGY | | | | + + + + + + + + | Performing | Address | City/State/Zipcode | Phone Number | | Organization | | | | + + + + + | [facility] | [address] | [place], [place] | | | CARDIOLOGY | [address] | [address] | | + + + + + | [facility] | [address] [facility] | [place], [place] | | | CARDIOLOGY | [address] [facility] | [address] | | + + + + + documented in this encounter Visit Diagnoses + + | Diagnosis | + + | Preop examination - Primary Preoperative examination, unspecified | + + documented in this encounter
--- OUTSIDE RECORDS SUMMARY | ~2018-09-10 | XMS | Encounter Summary ---
Demographics + + + | Address | [address] | | | [place] [address] | + + + | Home Phone [...] + | Ted Casas | ECON | [address] | | | | | [place] | | | | | [address] | | + + + + + | Carmen Renteria | ECON | [address] | | | | | [place] | | | | | [address] | | + + + + + | Vince Loredo | ECON | [place] | | + + + + + Care Team Providers + +------+ + | Care Take Out Waitress Name | Role | Phone | + +------+ + | Adrián Gregory MD | PCP | | + +------+ + Encounter Details +--------+ + + + + | Date | Type | Department | Care Team | Description | +--------+ + + + + | 05/10/ | Gravel Inspector | Preoperative | Aruna Dallas | HTN (Primary Dx) | | 2008 | | [facility] | J, US MARKETING DIRECTOR [address] | | | | | [address] | [facility] | | | | | [facility] | [place], [place] | | | | | [place] | [address] | | | | | room [address] [place] [address], | [phone] | | | | | [place] [address] | | | | | | [phone] | | | +--------+ + + + [...] view image for the detailed interpretation from [employer] results. | CARDIOLOGY | | | | + + + + + + + + | Performing | Address | City/State/Zipcode | Phone Number | | Organization | | | | + + + + + | [facility] | [address] | [place], [place] | | | CARDIOLOGY | [address] | [phone] | | + + + + + | [facility] | [address] | [place], [place] | | | CARDIOLOGY | [address] [facility] | [phone] | | + + + + + documented in this encounter Visit Diagnoses + + | Diagnosis | + + | HTN - Primary Unspecified essential hypertension | + + documented in this encounter
--- OUTSIDE RECORDS SUMMARY | ~2018-09-10 | XMS | Encounter Summary ---
Demographics + + + | Address | [address] | | | [place] [address] | + + + | Home Phone [...] + | Ted Patterson | ECON | [address] | | | | | [place] | | | | | [address] | | + + + + + | Carmen Renteria | ECON | [address] | | | | | [place] | | | | | [address] | | + + + + + | Vince Loredo | ECON | [place] | | + + + + + Care Team Providers + +------+ + | Care Boat Joiner Name | Role | Phone | + [...] [place] | | | | | | [address] | | | +--------+ + + + [...] | + + + | [address] [place] [address] | [facility] | | [place] [address] | DEPARTMENT | | [phone] | RADIOLOGY | | Name: LEONARDOROMANRINKU Phys: MARISOL ALBERTO Leandro | | | : 1950 Sex: F CSN: | | | [id number] MR# [id number] Exam Date: | | | 11/01/2015 EXAM: [...] Transcribed | | | Date/Time: 11/01/2015 13:29 Rn Hospice: [facility] | | + + + + + | Procedure Note | + + | Interface, Radiology Results - 11/01/2015 1:33 PM PDT [address] | | [place] [address] | | Name: ROMAN PATTERSON ANN Phys: MARISOL ALBERTO : 1950 Sex: F | | CSN: [id number] MR# [id number] Exam Date: 11/01/2015 EXAM:BONE DENSITY 1 OR [...] MD | | | |Electronically signed by: CATRER FRAZIER MD | | | |Transcribed Date/Time: 11/01/2015 13:29 | |Rn Hospice: [facility] | | | | | | [...]
--- OUTSIDE RECORDS SUMMARY | ~2018-09-10 | XMS | Encounter Summary ---
Demographics + + + | Address | [address] | | | [place] [address] | + + + | Home Phone [...] + | Ted Casas | ECON | [address] | | | | | [place] | | | | | [address] | | + + + + + | Carmen Renteria | ECON | [address] | | | | | [place] | | | | | [address] | | + + + + + | Vince Loredo | ECON | [place] | | + + + + + Care Team Providers + +------+ + | Care Host/Hostess Head Name | Role | Phone | + [...] | | | | Street The | [address] | | | | | [place] | [phone] | | | | | [address] | | | | | | [phone] | | | +--------+ + + + [...]
--- OUTSIDE RECORDS SUMMARY | ~2018-09-10 | XMS | Encounter Summary ---
Demographics + + + | Address | [address] | | | [place] [address] | + + + | Home Phone [...] + | Ted Patterson | ECON | [address] | | | | | [place] | | | | | [address] | | + + + + + | Carmen Renteria | ECON | [address] | | | | | [place] | | | | | [address] | | + + + + + | Vince Loredo | ECON | [place] | | + + + + + Care Team Providers + +------+ + | Care Director Of Medical Staff Services Name | Role | Phone | + [...] [place] | | | | | [address] | [address] | | | | | | [phone] | | | | | | | [...] ReddJakob Leandro - 01/06/2009 4:40 PM PDT [facility] [address] [place] [address] ROMAN PATTERSON DATE OF SERVICE: January 06, [...] months for next follow-up. XF/MedQ ROMAN PATTERSON [id number] : [id number] SERVICE DATE: 01/06/09 /[id number] cc: Adrián Gregory M.D. Electronically Signed X MD LEONARDO Brown LEE ANN A [id number] : 52 [id number] SERVICE DATE: 01/06/09 12 :20 PM PDTdocumented in this encounter Plan of Treatment Not on filedocumented as of this encounter Visit Diagnoses Not on filedocumented in this encounter"
--- OUTSIDE RECORDS SUMMARY | ~2018-09-10 | XMS | Encounter Summary ---
Demographics + + + | Address | [address] | | | [place] [address] | + + + | Home Phone [...] + | Ted Casas | ECON | [address] | | | | | [place] | | | | | [address] | | + + + + + | Carmen Renteria | ECON | [address] | | | | | [place] | | | | | [address] | | + + + + + | Vince Loredo | ECON | [place] | | + + + + + Care Team Providers + +------+ + | Care Wire Hanger Name | Role | Phone | + [...] Visit | Medicine Clinic at | J, SLUBBER MACHINE OPERATOR [address] [facility] | Breast (Primary Dx); | | | | [facility] 4th Floor [address] | Other Specified | | | | Leandro Vargas Mail | [place], [place] | Pre-Operative | | | | Code: [address] | [address] | Examination | | | | for Health and | [phone] | | | | | [facility],4th Floor | | | | | | [place], [place] | | | | | | [address] | | | | | | [phone] | | | +--------+---------+ + + + [...] Scanned [facility] Ruddy Vargas Mail Code: [place] [address] documented in th is encounter Plan of [...] + + + + | [facility] | [address] [facility] | [place] [address] | | | PATHOLOGY | [address] | | | + + + + + | [facility] | [address] [facility] | [place] [address] | | | PATHOLOGY | [address] [...] [place] DEPARTMENT | [address] | [place] [address] | | | PATHOLOGY | [address] | | | + + + + + | [facility] DEPARTMENT OF | [address] [facility] | [place] [address] | | | PATHOLOGY | [address] [...] | + + + + + | [facility] DEPARTMENT OF | [address] | [place] [address] | | | PATHOLOGY | [address] | | | + + + + + | [facility] DEPARTMENT | [address] [facility] | [place] [address] | | | PATHOLOGY | [address] [...] | + + + + + | [facility] DEPARTMENT OF | [address] | [place] [address] | | | PATHOLOGY | [address] | | | + + + + + | [place] DEPARTMENT OF | [address] | [place] [address] | | | PATHOLOGY | [address] [...] Performed At | + + + | [id number] Estimated GFR > 60 mL/min/1.73 sq m if non- | [facility] | | Sudanese [id number] Estimated GFR > 60 mL/min/1.73 sq m if | DEPARTMENT OF | | Sudanese GFR is estimated using the MDRD equation [...] + | [facility] DEPARTMENT OF | [address] [facility] | [place] [address] | | | PATHOLOGY | [address] | | | + + + + + | [facility] DEPARTMENT OF | [address] [facility] | [place] [address] | | | PATHOLOGY | [address] [...] DEPARTMENT OF | [address] | [place] [address] | | | PATHOLOGY | [address] | | | + + + + + | [facility] DEPARTMENT OF | [address] | [place] [address] | | | PATHOLOGY | [address] [...] view image for the detailed interpretation from [employer] results. | CARDIOLOGY | | | | + + + + + + + + | Performing | Address | City/State/Zipcode | Phone Number | | Organization | | | | + + + + + | [facility] DEPT OF | [address] [facility] | [place], [place] | | | CARDIOLOGY | [address] | [address] | | + + + + + | [facility] DEPT OF | [address] [facility] | [place] [place] [place] [place] | | | CARDIOLOGY | [address] | [address] | | + + + + + documented in this encounter Visit Diagnoses + + | Diagnosis | + + | Acquired absence of breast - Primary Acquired absence of breast and nipple | + + | Other specified pre-operative examination | + + documented in this encounter
--- OUTSIDE RECORDS SUMMARY | ~2018-09-10 | XMS | Encounter Summary ---
Demographics + + + | Address | [address] | | | [place] [address] | + + + | Home Phone [...] + | Ted Patterson | ECON | [address] | | | | | [place] | | | | | [address] | | + + + + + | Carmen Renteria | ECON | [address] | | | | | [place] | | | | | [address] | | + + + + + | Vince Loredo | ECON | [place] | | + + + + + Care Team Providers + +------+ + | Care Roller Name | Role | Phone | + +------+ + | Adrián Gregory MD | PCP | | + +------+ + Encounter Details +--------+ + + + + | Date | Type | Department | Care Team | Description | +--------+ + + + + | 06/17/ | Office | [facility] [address] | Erna Rainey, | Progress Note | | 2012 | Visit-Trans | [address] | MD [address] | | | | cribed | [place] | [place] | | | | | [address] | [address] | | | | | | [phone] | | | | | | | [...] encounter Progress Notes Erna Rainey MD - 03/16/2013 2:02 PM [facility] [address] [place] [address] ROM[address] PATTER[address] ANN DATE OF SERVICE: March 16, 2013 DIAGNOSIS: Breast cancer stage I (T1b N0 M0). TREATMENT: Anastrozole 1 mg p.o. daily. INTERVAL HISTORY: The patient returned today for followup of her breast cancer. She is already over 5 years on anastrozole. She elected to continue this treatment. She is being followed for her osteopenia with annual bone density study. Her last bone density was done July 2012, she had a T-score of -1.6 on L2 and L3 vertebral body. The rest of her bone density appears to be normal. She has hot flashes but otherwise no pain. PHYSICAL EXAMINATION: VITAL SIGNS: Her weight today is 161.4 pounds. Blood pressure 118/79, pulse 86, temperature 98.5, saturation 97%. GENERAL APPEARANCE: She is comfortable, well-nourished and not in acute distress. HEENT: Sclerae nonicteric, with no facial asymmetry. NECK: Supple. No palpable mass or JVD. LUNGS: Clear to auscultation bilaterally with no wheeze or rales. No labored breathing. HEART: S1, S2, regular rate and rhythm. I do not appreciate any murmurs. BREASTS: Examination revealed surgical scars well-healed in the right breast. There was no palpable lymphadenopathies, no axillary lymph nodes. Her left breast examination is unremarkable, again no lymphadenopathies. ABDOMEN: Soft and nontender, without organomegaly or mass. LABORATORY DATA: WBC 6.3, hemoglobin 12.2, platelet count of 207,000. CMP unremarkable. Her mammogram was done in early February, I do not have the copy but she said it was fine. IMPRESSION: 1. Breast cancer without evidence of recurrence. 2. Osteopenia on L2 and L3 vertebral body. PLAN: 1. Continue anastrozole. 2. I will have her come back in 6 months. 3. I will repeat her bone density before returning visit. XF/MedQ /[id number] ROMAN PATTERSON [id number] : 52 [id number] SERVICE DATE: 03/16/13 cc: Adrián Gregory M.D. Electronically Signed 03/31/13 1203 X MD LEONARDO Brown LEE ANN [id number] : 52 [id number] SERVICE DATE: 03/16/13 12 :28 PM Erna Braden MD - 07/29/2012 10:39 PM PDT [facility] [address] [place] [address] ROM[address] PATTERSON DATE OF SERVICE: July 29, 2012 DIAGNOSIS: Breast cancer stage I (T1b N0 M0). TREATMENT COMPLETED: Five years of anastrozole in April 2012. INTERVAL HISTORY: The patient returned today after her last visit in June, because of the new data coming out of a clinical trial comparing 5 to 10 years of tamoxifen, we elected to obtain a bone density study to see if she will be a candidate to continue anastrozole for up to another 5 years. The bone density study came back, it is actually quite good, her T-score is -1.6 on L2 and L3 vertebral bodies. The rest of the study appears to be quite well and near-normal. Therefore, she has the diagnosis of osteopenia based on the above reading. I had a long discussion with the patient, explained about the bone density findings. She is also on calcium and vitamin D, which I reviewed her dose. She seems to be taking a very high dose of vitamin D but fairly low calcium. She also told me that her blood check of calcium by her primary care provider, Dr. Gregory, is high. I am not sure what is the exact number. I think it is reasonable for her to go back to anastrozole 1 mg p.o. daily, and follow her bone density study. I asked her to send me the calcium results so as to evaluate. Because of her going back on the anastrozole, I will need to follow her a bit more closely than once a year. I tentatively scheduled for her to come back in 6 months. I also recommended that she increase her calcium and vitamin D with calcium at least 1500 mg and vitamin D 800 units, assuming her blood potassium result showed no significant concerns. PLAN: 1. Restart anastrozole. 2. We will wait for her blood calcium result. 3. Suggested calcium with vitamin D supplement if no contraindications. 4. Scheduled 6-month appointment. 5. Recheck bone density study in 2 years. XF/MedQ ROMAN PATTERSON [id number] : 52 [id number] SERVICE DATE: 07/29/12 /[id number] cc: Adrián Gregory M.D. Electronically Signed 08/04/12 0840 X MD LEONARDO Brown LEE ANN [id number] : 52 [id number] SERVICE DATE: 07/29/12 12 :22 PM Erna Braden MD - 06/17/2012 8:51 PM [facility] [address] [place] [address] ROMAN PATTERSON DATE OF SERVICE: June 17, 2012 DIAGNOSIS: Breast cancer, Stage I (T1b, N0, M0). TREATMENT: Completed 5 years of anastrozole in April of 2012. INTERVAL HISTORY: The patient has been doing quite well overall. She got off anastrozole in April. She did not see much difference in terms of her symptoms, she still has some hot flashes, maybe slightly less, but not much noticeable. She has maybe slightly less aches and pains, but again, she did not notice any dramatic difference. All in all, she feels that it is not a huge factor in her life in terms of the change. She is celebrating her 30-year anniversary with her , she is planning to go to [facility], via train in the second half of June. PHYSICAL EXAMINATION: VITAL SIGNS: Her weight today is 166.8 pounds, with a blood pressure of 110/65, pulse 91, temperature of 98, saturation of 95%. GENERAL APPEARANCE: Well nourished, comfortable, and not in acute distress. HEENT: Sclerae nonicteric, with no facial asymmetry. NECK: Supple. LUNGS: Clear. HEART: Rate is regular. BREASTS: Breast examination revealed no palpable mass, skin changes, or nipple discharge. Surgical scars are well healed. No axillary palpable lymphadenopathies. ABDOMEN: Soft and nontender. EXTREMITIES: Without edema or cyanosis. LABORATORY DATA: WBC of 9.1, hemoglobin 13.7, platelet count 190,000. CMP unremarkable. IMPRESSION: 1. No evidence of breast cancer recurrence. 2. I discussed with her about new data regarding 10 years versus 5 years of tamoxifen. She is very interested in continuing with endocrine therapy if warranted. I did explain to her about the uncertainty of longer use of anastrozole off of her aromatase inhibitor versus tamoxifen, but it is possible that they may do the same. PLAN: 1. I would like to obtain a bone density study first to evaluate her bone status. 2. If there is no osteoporosis, will consider putting her back on anastrozole for longer periods of time. 3. I will have her come back in 6 weeks for a returning visit. PAKO/ROMAN Crain [id number] : 52 [id number] SERVICE DATE: 06/17/12 /[id number] cc: Adrián Gregory M.D. Electronically Signed 06/18/12 0853 X MD LEONARDO Brown LEE ANN [id number] : 52 [id number] SERVICE DATE: 06/17/12 12 :20 PM PDTdocumented in this encounter Plan of Treatment Not on filedocumented as of this encounter Visit Diagnoses Not on filedocumented in this encounter"
--- OUTSIDE RECORDS SUMMARY | ~2018-09-10 | XMS | Encounter Summary ---
Demographics + + + | Address | [address] | | | [place] [address] | + + + | Home Phone [...] + | Ted Casas | ECON | [address] | | | | | [place] | | | | | [address] | | + + + + + | Carmen Renteira | ECON | [address] | | | | | [place] | | | | | [address] | | + + + + + | Vince Loredo | ECON | [place] | | + + + + + Care Team Providers + +------+ + | Care Head Usher Name | Role | Phone | + [...] [place] | | | | | | [address] | | | | | | [phone] | | | | | | | [...] | + + + + + | [facility] | And | [place] [address] | [phone] | | [facility] | Streets | | | + [...] | ESTIMATED | >60.0 | >60 | [facility] | | | GFR | | | [...] | [facility] | [address] | [place] [address] | [phone] | | MEDICAL [facility]ENTER | Streets | [...] + + | [facility] | And | [place] [address] | [phone] | | [facility] | [facility] | | | + + + [...] | [facility] | And | [place] [address] | [phone] | | [facility] | [facility] | | | + + + + + documented in this encounter Visit Diagnoses Not on filedocumented in this encounter"
--- OUTSIDE RECORDS SUMMARY | ~2018-09-10 | XMS | Encounter Summary ---
Demographics + + + | Address | [address] | | | [place] [address] | + + + | Home Phone | | + + + | Preferred Language | Unknown | + + + | Marital Status | | + + + | Caodaism Affiliation | NON | + + + | Race | White | + + + | Ethnic Group | Not or | + + + Author + + + | Author | [facility] | + + + | Organization | [facility] | + + + | Address | Unknown | + + + | Phone | Unavailable | + + + Support + + + + + | Name | Relationship | Address | Phone | + + + + + | Ted Patterson | ECON | [address] | | | | | [place] | | | | | [address] | | + + + + + | Carmen Renteria | ECON | [address] | | | | | [place] | | | | | [address] | | + + + + + | Vince Loredo | ECON | [place] | | + + + + + Care Team Providers + +------+ + | Care Network Coordinator Name | Role | Phone | [...] [place] | | | | | [address] | [address] | | | | | | [phone] | | | | | | | [...] Jakob Rainey - 11/27/2007 6:51 AM PDT [facility] [address] [place] [address] LEONARDO,ROMAN Cardenas DATE OF SERVICE: November 27, [...] due in January 2008. PAKO/Juan ROMAN PATTERSON [id number] SERVICE DATE: 11/27/07 /[id number] cc: Josephine Rodrigues M.D. Stewart Swena, M.D. Electronically Signed X MD LEONARDO Brown LEE ANN A [id number] SERVICE DATE: 11/27/07 12 :20 PM PDTdocumented in this encounter Plan of Treatment Not on filedocumented as of this encounter Visit Diagnoses Not on filedocumented in this encounter"
--- OUTSIDE RECORDS SUMMARY | ~2018-09-10 | XMS | Encounter Summary ---
Demographics + + + | Address | [address] | | | [place] [address] | + + + | Home Phone [...] + | Ted Casas | ECON | [address] | | | | | [place] | | | | | [address] | | + + + + + | Carmen Renteria | ECON | [address] | | | | | [place] | | | | | [address] | | + + + + + | Vince Loredo | ECON | [place] | | + + + + + Care Team Providers + +------+ + | Care Oil Agent Name | Role | Phone | [...] | | | | | nipple | [place] | [place], | | | | | | [address] | [place] | | | | | | Phone: | [address] | | | | | | [phone] | | | | | | | Fax: | | | | | | | [phone] | | +--------+--------+ + + + + Encounter Details +--------+---------+ + + + | Date | Type | Department | Care Team | Description | +--------+---------+ + + + | 09/03/ | Office | Plastic and | Rebekah Mendez PA | Acquired Absence of | | 2008 | Visit | Reconstructive | | Breast (Primary Dx); | | | | Surgery at [facility] [address] | | Other Specified | | | | [address] | | Pre-Operative | | | | Code: [facility] Center | | Examination | | | | for Health and | | | | | | Healing, 5th Floor | | | | | | [place], [place] | | | | | | [address] | | | | | | [phone] | | | +--------+---------+ + + + [...] surgeries scheduled to take place on the harrod at the [facility]: Surgeries scheduled in the [facility]): registration is located on the 4th floor of [facility] (Day Surgery). Surgeries scheduled in the [facility]: registration is located on the 9th floor. Surgeries scheduled in [facility]: registration is located on the 6th floor. Surgeries scheduled in the [facility]: registration is located i n the [facility] on the first floor. For surgeries scheduled to take place at the [facility]: registration is l ocated [...] If you use specialized medical equipment at [facility], please check with your provider before [...]
--- OUTSIDE RECORDS SUMMARY | ~2018-09-10 | XMS | Encounter Summary ---
Demographics + + + | Address | [address] | | | [place] [address] | + + + | Home Phone [...] + | Ted Casas | ECON | [address] | | | | | [place] | | | | | [address] | | + + + + + | Carmen Renteria | ECON | [address] | | | | | [place] | | | | | [address] | | + + + + + | Vince Loredo | ECON | [place] | | + + + + + Care Team Providers + +------+ + | Care Facility Service Manager Name | Role | Phone | [...] female breast (HCC) | | | | [address] | | (Primary Dx) | | | | [phone] | | | +--------+------+ + + + [...]
--- OUTSIDE RECORDS SUMMARY | ~2018-09-10 | XMS | Encounter Summary ---
Demographics + + + | Address | [address] | | | [place] [address] | + + + | Home Phone | | + + + | Preferred Language | Unknown | + + + | Marital Status | | + + + | Uatsdin Affiliation | NON | + + + [...] + | Ted Casas | ECON | [address] | | | | | [place] | | | | | [address] | | + + + + + | Carmen Renteria | ECON | [address] | | | | | [place] | | | | | [address] | | + + + + + | Vince Loredo | ECON | [place] | | + + + + + Care Team Providers + +------+ + | Care Secondary Connector Armature Name | Role | Phone | + [...] [place] | | | | | | [address] | | | | | | [phone] | | | | | | | [...] | | DIAGNOSTICS | | | | daycare director: APPT 02/02 | | -[place] | | | | This test was [...] [facility] | | | | | | [facility] [address] | | | | | | [facility] [address] [place] | | | | | | [address], | | | | | | [place] [address]tycb | | | | | | : KAVIN JEROME MD | | | | + + + + + + + + | Specimen | + + | | + + + + + | Narrative | Performed At | + + + | Collected by Care Unit: Wade Comments to daycare director: MARY CARMEN 02/02 | [facility] | | | [facility] | | | [place] | + + + + + + + + | Performing | Address | City/State/Zipcode | Phone Number | | Organization | | | | + + + + + | [facility] | [address] [facility] | [place] [address] | [phone] | | [facility] | | | | + + + [...] | [facility] | | | PLASMA | daycare director: APPT 02/02 | mmol/L | [facility] | | | (LAB) | | | LABORATORY | | + + + + + + | POTASSIUM, | 4.0Comment: Comments to | 3.5 - 5.2 | [facility] | | | PLASMA | daycare director: APPT 02/02 | mmol/L | [facility] | | | (LAB) | | | LABORATORY | | + + + + + + | CO2 | 26Comment: Comments to | 20 - 27 mmol/L | [facility] | | | | daycare director: APPT 02/02 | | [facility] | | | | | | LABORATORY | | + + + + + + | CHLORIDE, | 99Comment: Comments to | 96 - 106 mmol/L | [facility] | | | PLASMA | daycare director: APPT 02/02 | | [facility] | | | (LAB) | | | LABORATORY | | + + + + + + | ANION GAP | 13Comment: Comments to | 12 - 20 MEQ/L | [facility] | | | | daycare director: APPT 02/02 | | [facility] | | | | | | LABORATORY | | + + + + + + | GLUCOSE, | 206 (A)Comment: Comments | 70 - 105 mg/dL | [facility] | | | PLASMA | to daycare director: APPT | | [facility] | | | (LAB) | 02/02 | | LABORATORY | | + + + + + + | BUN, PLASMA | 15Comment: Comments to | 6 - 26 mg/dL | [facility] | | | (LAB) | daycare director: APPT 02/02 | | [facility] | | | | | | LABORATORY | | + + + + + + | CREATININE | 0.7Comment: Comments to | 0.6 - 1.1 mg/dL | [facility] | | | PLASMA | daycare director: APPT 02/02 | | [facility] | | | (LAB) | | | LABORATORY | | + + + + + + | BUN/CREATIN | 21 (A)Comment: Comments | 6 - 20 RATIO | [facility] | | | INE RATIO | to daycare director: APPT | | [facility] | | | | 02/02 | | LABORATORY | | + + + + + + | CALCIUM, | 9.8Comment: Comments to | 8.5 - 10.8 | [facility] | | | PLASMA | daycare director: APPT 02/02 | mg/dL | [facility] | | | (LAB) | | | LABORATORY | | + + + + + + | AST(SGOT) | 23Comment: Comments to | 10 - 41 U/L | [facility] | | | | daycare director: APPT 02/02 | | [facility] | | | | | | LABORATORY | | + + + + + + | ALT (SGPT) | 25Comment: Comments to | 7 - 51 U/L | [facility] | | | | daycare director: APPT 02/02 | | [facility] | | | | | | LABORATORY | | + + + + + + | ALK PHOS | 74Comment: Comments to | 32 - 180 U/L | [facility] | | | | daycare director: APPT 02/02 | | [facility] | | | | | | LABORATORY | | + + + + + + | TOTAL | 6.8Comment: Comments to | 5.8 - 8.5 g/dL | [facility] | | | PROTEIN, | daycare director: APPT 02/02 | | [facility] | | | PLASMA | | | LABORATORY | | | (LAB) | | | | | + + + + + + | ALBUMIN, | 4.0Comment: Comments to | 3.5 - 5.0 g/dL | [facility] | | | PLASMA | daycare director: APPT 02/02 | | [facility] | | | (LAB) | | | LABORATORY | | + + + + + + | BILIRUBIN | 0.2Comment: Comments to | 0.2 - 1.2 mg/dL | [facility] | | | TOTAL | daycare director: APPT 02/02 | | [facility] | | | | | | LABORATORY | | + + + + + + | ESTIMATED | >60.0Comment: Comments | >60 | [facility] | | | GFR | to daycare director: APPT | | [facility] | | | | 02/02 | | LABORATORY | | + + + + + + | FASTING? | UNKComment: Collected by | HR | [facility] | | | | Care Unit: NComments to | | [facility] | | | | daycare director: APPT | | LABORATORY | | | | 1021 | | | | | | | | | | + + + + + + + + | Specimen | + + | | + + + + + | Narrative | Performed At | + + + | Collected by Care Unit: N Comments to daycare director: MARY CARMEN 02/02 | [facility] | [...] [facility] | | | CELL COUNT | daycare director: APPT 10/21 | 3/uL | [facility] | | | | | | LABORATORY | | + + + + + + | HEMOGLOBIN | 13.2Comment: Comments to | 12.0 - 16.0 | [facility] | | | | daycare director: APPT | g/dL | [facility] | | | | 10/21 | | LABORATORY | | + + + + + + | RED BLOOD | 4.45Comment: Comments to | 3.5 - 5.0 X10 | [facility] | | | CELL COUNT | daycare director: APPT | 6/uL | [facility] | | | | 10/21 | | LABORATORY | | + + + + + + | HEMATOCRIT | 40.4Comment: Comments to | 37.0 - 45.0 % | [facility] | | | | daycare director: APPT | | [facility] | | | | 10/21 | | LABORATORY | | + + + + + + | MCV | 90.8Comment: Comments to | 82 - 100 fL | [facility] | | | | daycare director: APPT | | [facility] | | | | 10/21 | | LABORATORY | | + + + + + + | MCH | 29.6Comment: Comments to | 28.0 - 35.0 pg | [facility] | | | | daycare director: APPT | | [facility] | | | | 10/21 | | LABORATORY | | + + + + + + | MCHC | 32.7Comment: Comments to | 32 - 36 g/dL | [facility] | | | | daycare director: APPT | | [facility] | | | | 10/21 | | LABORATORY | | + + + + + + | RDW | 13.3Comment: Comments to | 12 - 16 % | [facility] | | | | daycare director: APPT | | [facility] | | | | / | | LABORATORY | | + + + + + + | PLATELET | 186Comment: Comments to | 140 - 350 X10 3 | [facility] | | | COUNT | daycare director: APPT 02/02 | | [facility] | | | | | | LABORATORY | | + + + + + + | MPV | 7.0Comment: Comments to | 7.0 - 12.0 fL | [facility] | | | | daycare director: APPT / | | [facility] | | | | | | LABORATORY | | + + + + + + | NEUTROPHIL | 45.2Comment: Comments to | 40 - 80 % | [facility] | | | % | daycare director: APPT | | [facility] | | | | 10/ | | LABORATORY | | + + + + + + | NEUTROPHIL | 2.4Comment: Comments to | 1.3 - 8.8 x10 | [facility] | | | # | daycare director: APPT 02/02 | 3/UL | [facility] | | | | | | LABORATORY | | + + + + + + | LYMPHOCYTE | 41.8Comment: Comments to | 15 - 45 % | [facility] | | | % | daycare director: APPT | | [facility] | | | | 10/21 | | LABORATORY | | + + + + + + | LYMPHOCYTE | 2.1Comment: Comments to | 0.5 - 5.0 x10 | [facility] | | | # | daycare director: APPT 02/02 | 3/UL | [facility] | | | | | | LABORATORY | | + + + + + + | EOS % | 2.3Comment: Comments to | 0 - 5.8 % | [facility] | | | | daycare director: APPT 02/02 | | [facility] | | | | | | LABORATORY | | + + + + + + | EOS # | 0.1Comment: Comments to | 0.0 - 0.7 x10 | [facility] | | | | daycare director: APPT 02/02 | 3/UL | [facility] | | | | | | LABORATORY | | + + + + + + | BASO % | 0.5Comment: Comments to | 0 - 1.8 % | [facility] | | | | daycare director: APPT 02/02 | | [facility] | | | | | | LABORATORY | | + + + + + + | BASO # | 0.0Comment: Comments to | 0.0 - 0.2 x10 | [facility] | | | | daycare director: APPT 02/02 | 3/UL | [facility] | | | | | | LABORATORY | | + + + + + + | MONOCYTE % | 10.2Comment: Comments to | 4.2 - 11.0 % | [facility] | | | | daycare director: APPT | | [facility] | | | | 10/21 | | LABORATORY | | + + + + + + | MONOCYTE # | 0.5Comment: Collected by | 0.1 - 1.3 x10 | [facility] | | | | Care Unit: NComments to | 3/UL | [facility] | | | | daycare director: APPT | | LABORATORY | | | | 10/21 | | | | | | | | | | + + + + + + + + | Specimen | + + | | + + + + + | Narrative | Performed At | + + + | Collected by Care Unit: Wade Comments to daycare director: MARY CARMEN 02/02 | [facility] | [...]
--- OUTSIDE RECORDS SUMMARY | ~2018-09-10 | XMS | Encounter Summary ---
Demographics + + + | Address | [address] | | | [place] [address] | + + + | Home Phone | | + + + | Preferred Language | Unknown | + + + | Marital Status | | + + + | Religion Affiliation | NON | + + + | Race | White | + + + | Ethnic Group | Not or | + + + Author + + + | Author | [facility] | + + + | Organization | [facility] | + + + | Address | Unknown | + + + | Phone | Unavailable | + + + Support + + + + + | Name | Relationship | Address | Phone | + + + + + | Ted Casas | ECON | [address] | | | | | [place] | | | | | [address] | | + + + + + | Carmen Renteria | ECON | [address] | | | | | [place] | | | | | [address] | | + + + + + | Vince Loredo | ECON | [place] | | + + + + + Care Team Providers + +------+ + | Care Dragsaw Operator Name | Role | Phone | [...] | | | | | | | [facility] | | | | | | | [facility] | | | | | | | [facility] | | | | | | | [place], [place] | | | | | | | [address] Phone: | | | | | | | [phone] | | | | | | | Fax: | | | | | | | [phone] | +--------+--------+ + + + + Encounter [...] | | | [facility] | [place], [place] | | | | | [facility] AND | [address] | | | | | HEALING [place], | [phone] | | | | | [place] [address] | | | | | | [phone] | | | +--------+ + + + [...] Performed At | + + + | [id number] | | | [id number] | | | [id number] [place] [address] | | | A [id number] Date: | | | 09/21/2008 Attending | | | Surgeon: Jelena Carias M.D. | | | Senior Research Project Manager(s): Maxx | | | Josephine Farooq Preoperative [...] Jelena | | | Sachin Carias M.D. [facility] / [id number] / [id number] / [id number] / | | | | | + + + + + | Procedure Note | + + | Jelena Carias MD - 09/21/2008 12:00 AM PDT [id number] | | [id number] [place] | | A [id number] Date: 09/21/2008 Attending Surgeon: | | Jelena Carias M.D. Senior Research Project Manager(s): Maxx Farooq M.D. | | Preoperative Diagnosis(es):Right [...] in stable | | condition. Jelena Carias M.D.[facility] / [id number] / [id number] / [id number] / T: | | 09/21/2008 | |equipment, [...] |Jelena Carias M.D. | |JE / | |[id number] / [id number] / [id number] / | | | | | | | | | | | | | | | | | | | | | + + documented in this encounter Visit Diagnoses Not on filedocumented in this encounter
--- OUTSIDE RECORDS SUMMARY | ~2018-09-10 | XMS | Encounter Summary ---
Demographics + + + | Address | [address] | | | [place] [address] | + + + | Home Phone [...] + | Ted Casas | ECON | [address] | | | | | [place] | | | | | [address] | | + + + + + | Carmen Renteria | ECON | [address] | | | | | [place] | | | | | [address] | | + + + + + | Vince Loredo | ECON | [place] | | + + + + + Care Team Providers + +------+ + | Care Rad Technologist Name | Role | Phone | + +------+ + | Adrián Gregory MD | PCP | | + +------+ + Encounter Details +--------+ + + + + | Date | Type | Department | Care Team | Description | +--------+ + + + + | 05/14/ | Document-Sc | UNKNOWN DEPARTMENT | Radiologist, Nuc | | | 2008 | anned | [address] [facility] | Med [facility] | | | | | [facility] | | | | | | [place], [place] | | | | | | [address] | | | +--------+ + + + [...]
--- OUTSIDE RECORDS SUMMARY | ~2018-09-10 | XMS | Encounter Summary ---
Demographics + + + | Address | [address] | | | [place] [address] | + + + | Home Phone [...] + | Ted Casas | ECON | [address] | | | | | [place] | | | | | [address] | | + + + + + | Carmen Renteria | ECON | [address] | | | | | [place] | | | | | [address] | | + + + + + | Vince Loredo | ECON | [place] | | + + + + + Care Team Providers + +------+ + | Care Assembly Mechanic Name | Role | Phone | [...] [place], [place] | | | | | [place] | [address] | | | | | [place], [place] | [phone] | | | | | [address] | | | | | | [phone] | | | +--------+--------+ + + + [...]
--- OUTSIDE RECORDS SUMMARY | ~2018-09-10 | XMS | Encounter Summary ---
Demographics + + + | Address | [address] | | | [place] [address] | + + + | Home Phone [...] + | Ted Patterson | ECON | [address] | | | | | [place] | | | | | [address] | | + + + + + | Carmen Renteria | ECON | [address] | | | | | [place] | | | | | [address] | | + + + + + | Vince Loredo | ECON | [place] | | + + + + + Care Team Providers + +------+ + | Care Strategic Marketing Manager Name | Role | Phone | [...] | | | | right female | [facility] | | | | | breast, | [place], [place] | [place], | | | | | unspecified | [address] | [place] [address] | | | | | site of | Phone: | | | | | | breast | [phone] | | | | | | Procedures | Fax: | | | | | | PET CT SKULL | [phone] | | | | | | BASE [...] unspecified | | | | The | [address] | laterality, | | | | [place], [place] | [phone] | unspecified site of | | | | [address] | | breast (HCC) | | | | [phone] | | (Primary Dx); | | | [...] 7 - 51 U/L Final EGFR - SRI LANKAN 08/24/2015 >60 >60 mL/min Final EGFR NON -SRI LANKAN 08/24/2015 >60 >60 mL/min Final ANION GAP [...] MA - 05/16/2016 2:00 PM P STA Metal Machinist was offered to the patient and declined. tyler/ma documented in this en counter Plan of Treatment Not on filedocumented as of this encounter Results PET CT SKULL BASE TO MID-THIGHS (07/04/2016 2:23 PM PDT) + + | Specimen | + + | | + + + + + | Narrative | Performed At | + + + | [address] [place] [address] | [facility] | | [place] [address] DEPARTMENT | | [phone] | RADIOLOGY | | Name: PERRY PATTERSON ANN Phys: MARISOL ALBERTO | | | : 1950 Sex: F CSN: | | | [id number] MR# [id number] Exam Date: | | | 07/04/2016 EXAM: [...] Transcribed Date/Time: 07/05/2016 01:05 | | | Concrete Tile Machine Operator: FLUENCY | | + + + + + | Procedure Note | + + | Interface, Radiology Results - 07/05/2016 1:09 AM PDT [address] | | [address] [place] [address] | | Name: PERRY PATTERSON ANN Phys: REMYDINORAHMARISOL S : 1950 Sex: F | | CSN: [id number] MR# [id number] Exam Date: 07/04/2016 EXAM:PET-CT CLINICAL | | [...] | | |Transcribed Date/Time: 07/05/2016 01:05 | |Concrete Tile Machine Operator: FLUENCY | | | | | | [...] DIAGNOSTICS | [address] | [place] [address] | | | - [facility] | [address] | | | + + [...] | Reference Range: Non-smokers: 0.0-3.0 ng/mL | [facility] | | Smokers: 0.0-5.0 ng/mL | MEDICAL CENTER | + + + + + + + + | Performing | Address | City/State/Zipcode | Phone Number | | Organization | | | | + + + + + | [facility] | [address] | [place] [address] | [phone] | | [facility] | Streets | | | [...] (H) | 70 - 105 mg/dL | [facility] | | | PLASMA | | | A MEDICAL | | | (LAB) | | | CENTER | | + +---------+ + + + | BUN, PLASMA | 14 | 6 - 26 mg/dL | [facility] | | | (LAB) | | | [...] | | A MEDICAL | | | SRI LANKAN | | | CENTER | | + [...] Education Program. Estimated GFR | [facility] | | Interpretive Information: <60 mL/min/1.73 [...] | [facility] | And | [place] [address] | [phone] | | [facility] | Streets | | | [...]
--- OUTSIDE RECORDS SUMMARY | ~2018-09-10 | XMS | Encounter Summary ---
Demographics + + + | Address | [address] | | | [place] [address] | + + + | Home Phone [...] + | Ted Casas | ECON | [address] | | | | | [place] | | | | | [address] | | + + + + + | Carmen Renteria | ECON | [address] | | | | | [place] | | | | | [address] | | + + + + + | Vince Loredo | ECON | [place] | | + + + + + Care Team Providers + +------+ + | Care Dental Ceramist Assistant Name | Role | Phone | [...] female breast (HCC) | | | | [address] | | | | | | [phone] | | | +--------+------+ + + + [...] + + | [facility] | And | [place] [address] | [phone] | | MEDICAL CENTER | Streets | | | + + + + + CARCINOEMBRYONIC AG, SERUM (08/21/2016 2:00 PM PDT) + +-------+ + + + | Component | Value | Ref Range | Performed | Pathologist | | | | | At | Signature | + +-------+ + + + | CEA-CARCINO | 8.1 | ng/mL | [facility] | | | EMBRYONIC | [...] + + + + + | [facility] | And | [place] [address] | [phone] | | MEDICAL CENTER | Streets | [...] (H) | 70 - 105 mg/dL | [facility] | | | PLASMA | [...] | | A MEDICAL | | | [place] | | | CENTER | | + [...] Kidney Disease Education Program. 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
--- OUTSIDE RECORDS SUMMARY | ~2018-09-10 | XMS | Encounter Summary ---
Demographics + + + | Address | [address] | | | [place] [address] | + + + | Home Phone [...] + | Ted Casas | ECON | [address] | | | | | [place] | | | | | [address] | | + + + + + | Carmen Renteria | ECON | [address] | | | | | [place] | | | | | [address] | | + + + + + | Vince Loredo | ECON | [place] | | + + + + + Care Team Providers + +------+ + | Care Fibre Composite Technician Name | Role | Phone | + [...] [place] | | | | | | [address] | | | | | | [phone] | | | | | | | [...] + + + + | MPV | QUARTER INSPECTOR | 9.0 - 12.0 fL | [facility] [...] + + + + | [facility] | And | [place] [address] | | | [facility] | [facility] | | | + + + + + COMPLETE METABOLIC SET (NA,K,CL,CO2,BUN,CREAT,GLUC,CA,AST,ALT,BILI TOTAL,ALK PHOS,ALB,PROT TOTAL) (09/02/2008 12:41 PM PDT) + +---------+ + + + | Component | Value | Ref Range | Performed | Pathologist | | | | | At | Signature | + +---------+ + + + | SODIUM, | 140 | 137 - 146 MEQ/L | [facility] | | | PLASMA | | | [...] | + + + + + | [facility] | And | [place] [address] | | | [facility] | [facility] | | | + + + + + documented in this encounter Visit Diagnoses Not on filedocumented in this encounter"
--- OUTSIDE RECORDS SUMMARY | ~2018-09-10 | XMS | Encounter Summary ---
Demographics + + + | Address | [address] | | | [place] [address] | + + + | Home Phone [...] + | Ted Casas | ECON | [address] | | | | | [place] | | | | | [address] | | + + + + + | Carmen Renteria | ECON | [address] | | | | | [place] | | | | | [address] | | + + + + + | Vince Loredo | ECON | [place] | | + + + + + Care Team Providers + +------+ + | Care Gas Mask Assembler Name | Role | Phone | [...] | | | | | nipple | [place] | [place], | | | | | | [address] | [place] | | | | | | Phone: | [address] | | | | | | [phone] | | | | | | | Fax: | | | | | | | [phone] | | +--------+--------+ + + + + Encounter Details +--------+---------+ + + + | Date | Type | Department | Care Team | Description | +--------+---------+ + + + | 09/03/ | Office | Plastic and | Rebekah Mendez PA | Acquired Absence of | | 2008 | Visit | Reconstructive | | Breast (Primary Dx); | | | | Surgery at [facility] [address] | | Other Specified | | | | [address] | | Pre-Operative | | | | Code: [facility] Center | | Examination | | | | for Health and | | | | | | Healing, 5th Floor | | | | | | [place], [place] | | | | | | [address] | | | | | | [phone] | | | +--------+---------+ + + + [...] surgeries scheduled to take place [place] at the [facility]: Surgeries scheduled in the [facility]): registration is located on the 4th floor of [facility] (Day Surgery). Surgeries scheduled in the [facility]: registration is located on the 9th floor. Surgeries scheduled in [facility]: registration is located on the 6th floor. Surgeries scheduled in the [facility]: registration is located i n the [facility] on the first floor. For surgeries scheduled to take place at the [facility]: registration is l ocated [...] If you use specialized medical equipment at [facility], please check with your provider before bringing [...]
--- OUTSIDE RECORDS SUMMARY | ~2018-09-10 | XMS | Encounter Summary ---
Demographics + + + | Address | [address] | | | [place] [address] | + + + | Home Phone [...] + | Ted Casas | ECON | [address] | | | | | [place] | | | | | [address] | | + + + + + | Carmen Renteria | ECON | [address] | | | | | [place] | | | | | [address] | | + + + + + | Vince Loredo | ECON | [place] | | + + + + + Care Team Providers + +------+ + | Care Orchestra Leader Name | Role | Phone | + [...] breast in female, | | | | [address] | | estrogen receptor | | | | [phone] | | positive (HCC) | +--------+------+ + [...] | 0.10 | 0.00 - 0.10 | [facility] | | | | | [facility] | And | [place] [address] | [phone] | | MEDICAL CENTER | Streets | [...] | + + + + + | [facility] | And | [place] [address] | [phone] | | MEDICAL [facility] | [place] | | | + + + + [...] | | A MEDICAL | | | [facility] | | | CENTER | | + [...] | FASTING 8 | No | | [facility] | | | HOURS [place] | [...] equation recommended by the | [facility] | | National Kidney Disease Education Program. 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
--- OUTSIDE RECORDS SUMMARY | ~2018-09-10 | XMS | Encounter Summary ---
Demographics + + + | Address | [address] | | | [place] [address] | + + + | Home Phone [...] + | Ted Casas | ECON | [address] | | | | | [place] | | | | | [address] | | + + + + + | Carmen Renteria | ECON | [address] | | | | | [place] | | | | | [address] | | + + + + + | Vince Loredo | ECON | [place] | | + + + + + Care Team Providers + +------+ + | Care Dural Mechanic Name | Role | Phone | [...] female breast (HCC) | | | | [address] | | (Primary Dx) | | | | [phone] | | | +--------+------+ + + + [...] + + | [facility] | | [place] [address] | | + +---------+ + + [place] [...] + + + | [facility] | [address] | [place] [address] | | | - [place] | [address] | | | + + [...] Range: Non-smokers: 0.0-3.0 ng/mL | [facility] | | Smokers: 0.0-5.0 ng/mL | [facility] | + + + + + + + + | Performing | Address | City/State/Zipcode | Phone Number | | Organization | | | | + + + + + | [facility] | And | [place] [address] | [phone] | | [facility] | Streets | [...] | | [facility] | | | [facility] | | | [facility] | | + [...] Kidney Disease Education Program. Estimated GFR | [facility] | | Interpretive Information: <60 mL/min/1.73 [...] [facility] | And | [place] [address] | [phone] | | [facility] | Streets | | | + + + + + documented in this encounter Visit Diagnoses + + | Diagnosis | + + | Malignant neoplasm of upper-outer quadrant of right female breast (HCC) - Primary | | Malignant neoplasm of upper-outer quadrant of female breast | + + documented in this encounter"
--- OUTSIDE RECORDS SUMMARY | ~2018-09-10 | XMS | Encounter Summary ---
Demographics + + + | Address | [address] | | | [place] [address] | + + + | Home Phone | | + + + | Preferred Language | Unknown | + + + | Marital Status | | + + + | Faith Affiliation | NON | + + + | Race | White | + + + | Ethnic Group | Not or | + + + Author + + + | Author | [facility] | + + + | Organization | [facility] | + + + | Address | Unknown | + + + | Phone | Unavailable | + + + Support + + + + + | Name | Relationship | Address | Phone | + + + + + | Ted Casas | ECON | [address] | | | | | [place] | | | | | [address] | | + + + + + | Carmen Renteria | ECON | [address] | | | | | [place] | | | | | [address] | | + + + + + | Vince Loredo | ECON | [place] | | + + + + + Care Team Providers + +------+ + | Care Hedis Coordinator Name | Role | Phone | [...] | | | | Mail Code: | [place], [place] | | | | | | [address] Center | [address] | | | | | | for Health | Phone: | | | | | | and Healing, | [phone] | | | | | | 5th Floor | Fax: | | | | | | [place], [place] | [phone] | | | | | | [address] | | | | | | | Phone: | | | | | | | [phone] | | +--------+--------+ + + + + Encounter Details +--------+---------+ + + + | Date | Type | Department | Care Team | Description | +--------+---------+ + + + | 08/02/ | Office | Plastic and | Jelena Carias, | S/P breast | | 2010 | Visit | Reconstructive | [address] | reconstruction | | | | Surgery at [facility] [address] | [place], [place] | (Primary Dx) | | | | [address] Mail | [address] | | | | | Code: [facility] | [phone] | | | | | for Health and | | | | | | [facility], [address] [place] [address] | | | | | | [place], [place] | | | | | | [address] | | | | | | [phone] | | | +--------+---------+ + + + [...]
--- OUTSIDE RECORDS SUMMARY | ~2018-09-10 | XMS | Encounter Summary ---
Demographics + + + | Address | [address] | | | [place] [address] | + + + | Home Phone [...] + | Ted Casas | ECON | [address] | | | | | [place] | | | | | [address] | | + + + + + | Carmen Renteria | ECON | [address] | | | | | [place] | | | | | [address] | | + + + + + | Vince Loredo | ECON | [place] | | + + + + + Care Team Providers + +------+ + | Care Manager Underwriting Name | Role | Phone | + [...] [place], [place] | | | | | [place] | [address] | | | | | [place], [place] | [phone] | | | | | [address] | | | | | | [phone] | | | +--------+--------+ + + + [...]
--- OUTSIDE RECORDS SUMMARY | ~2018-09-10 | XMS | Encounter Summary ---
Demographics + + + | Address | [address] | | | [place] [address] | + + + | Home Phone [...] + + + + + | Tde Patterson | ECON | [address] | | | | | [place] | | | | | [address] | | + + + + + | Carmen Renteria | ECON | [address] | | | | | [place] | | | | | [address] | | + + + + + | Vince Loredo | ECON | [place] | | + + + + + Care Team Providers + +------+ + | Care Boat Buffer Plastic Name | Role | Phone | + [...] [place] | | | | | [address] | [address] | | | | | | [phone] | | | | | | | [...] Jakob Rainey - 08/21/2007 4:47 AM PDT [facility] [address] [place] [address] PERRY PATTERSON DATE OF SERVICE: August 20, [...] if necessary for follow-up. XF/MedQ PERRY PATTERSON [id number] SERVICE DATE: 08/20/07 /[id number] cc: Jem Gregory Electronically Signed X MD LEONARDO Brown LEE ANN A [id number] SERVICE DATE: 08/20/07 12 :12 PM PDTFu, Erna Waldron MD - 04/24/2007 3:02 PM [facility] [address] [place] [address] PERRY PATTERSON DATE OF SERVICE: April 24, 2007 DIAGNOSIS: Stage IB breast cancer. INTERVAL HISTORY: The patient had completion mastectomy after initial excision biopsy. The tumor was ER and NV strongly positive (90%), HER2/derek negative by FISH, [...] Stage IB breast cancer, strong ER and NV positive, HER2 negative. DISCUSSION: Her 10-year relapse [...] Return in 4 months for followup. PAKO/Juan /[id number] PERRY PATTERSON [id number] SERVICE DATE: 04/24/07 cc: Dr. Doron Gregory Electronically Signed X MD LEONARDO Brown LEE ANN A [id number] SERVICE DATE: 04/24/07 12 :07 PM Sampson, Erna Waldron MD - 04/02/2007 12:36 PM [facility] [address] [place] [address] PERRY PATTERSON DATE OF ADMISSION: 04/01/2007 REFERRING [...] the inked margins of excision. Immunohistochemistry was ER/NV 90% positive, HER2/derek studies are pending. 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 She is , and lives with her in [place]. She has 3 daughters and 3 stepchildren. She denies current tobacco use, stating she quit smoking 2 years ago. Prior to that, she smoked for 35 years. She admits to occasional social drinking. REVIEW OF SYSTEMS: She has no chills or fever. She denies unexplained weight loss. She states the lumpectomy site is printing grey cloth tender, but does not require a narcotic analgesic for managing discomfort. She has no upper respiratory LEONARDO,PERRY Cardenas [id number] SERVICE DATE: 04/01/07 complaints. She has no [...] in size. The tumor is ER and NV 90% positive, HER2 still pending. The tumor [...] questions were answered satisfactorily. PLAN: PERRY PATTERSON [id number] SERVICE DATE: 04/01/07 1. The patient will [...] you very much for this consultation. NV/MedQ /[id number] XF/MedQ /[id number] cc: Dr. Doron Parish Electronically Signed X MD LEONARDO Brown LEE ANN A [id number] SERVICE DATE: 04/01/07 12 :05 PM PDTdocumented in this encounter Plan of Treatment Not on filedocumented as of this encounter Visit Diagnoses Not on filedocumented in this encounter"
--- OUTSIDE RECORDS SUMMARY | ~2018-09-10 | XMS | Encounter Summary ---
Demographics + + + | Address | [address] | | | [place] [address] | + + + | Home Phone [...] + | Ted Casas | ECON | [address] | | | | | [place] | | | | | [address] | | + + + + + | Carmen Renteria | ECON | [address] | | | | | [place] | | | | | [address] | | + + + + + | Vince Loredo | ECON | [place] | | + + + + + Care Team Providers + +------+ + | Care Associate Professor Name | Role | Phone | [...] [place], [place] | | | | | [place] | [address] | | | | | [place], [place] | [phone] | | | | | [address] | | | | | | [phone] | | | +--------+--------+ + + + [...]
--- OUTSIDE RECORDS SUMMARY | ~2018-09-10 | XMS | Encounter Summary ---
Demographics + + + | Address | [address] | | | [place] [address] | + + + | Home Phone | | + + + | Preferred Language | Unknown | + + + | Marital Status | | + + + | Gnosticism Affiliation | Unknown | + + + | Race | Unknown | + + + | Ethnic Group | Unknown | + + + Author + + + | Author | [facility] | + + + | Organization | [facility] | + + + | Address | Unknown | + + + | Phone | Unavailable | + + + Support + + + + + | Name | Relationship | Address | Phone | + + + + + | Ted Cortes | ECON | [address] | | | | | [place] | | | | | [address] | | + + + + + | Jersey Marroquin | ECON | [place] | | | | | [address] | | + + + + + Care Team Providers + +------+ + | Care Crewman Armoured Personnel Carrier M113 Name | Role | Phone | + [...] | Radiology | Diagnoses | Shell, | [facility] Mri | | | | | Numbness | MD Wally | [address] | | | | | Procedures | [address] | | | | | MRI lumbar | [address] | [place], [place] | | | | | spine | Drive | [address] Phone: | | | | | without | [place], [place] | [phone] | | | | | contrast | [address] | Fax: | | | | | | Phone: | [phone] | | | | | | [phone] | | | | | | | Fax: | | | | | | | [phone] | | +--------+--------+ + + + + [...] | | | extremity | [address], | [place], [place] | | | | | | [place] [address] | [address] Phone: | | | | | | Phone: | [phone] | | | | | | [phone] | Fax: | | | | | | Fax: | [phone] | | | | | | [phone] | | + +--------+ + + + [...] | | [address] | Drive [place], [place] | | | | | [place], [place] | [address] | | | | | [address] | | | | | | [phone] | | | +--------+ + + + [...] may be different from the original. [facility] [address] , [address] [place], [place] [phone] Test Date: 07/30/2018 Patient: raeann cortes : 1950 Physician: Wally Shell MD Sex: Female Height: Ref Phys: ID#: [id number] Weight: Appliance Counselor: Patient History / Exam: 68-year-old woman with [...] and follow-up visit Wally Shell MD [facility] Nerve Conduction Studies Anti Sensory Summary Table [...] | | | | | | [place] [facility] | | | | | | [id number] | | | | | | | [...] + + | Performing | Address | City/State/[facility] | Phone Number | | Organization | | | | + + + + + | [facility] | [address] | [place] [address] | | + + + + + in this encounter Visit Diagnoses + + | Diagnosis | + + | Numbness - Primary | + + | Disturbance of skin sensation | + + | Polyneuropathy | + + | Unspecified hereditary and idiopathic peripheral neuropathy | + +"
--- OUTSIDE RECORDS SUMMARY | ~2018-09-10 | XMS | Encounter Summary ---
Demographics + + + | Address | [address] | | | [place] [address] | + + + | Home Phone [...] + | Tde Casas | ECON | [address] | | | | | [place] | | | | | [address] | | + + + + + | Carmen Renteria | ECON | [address] | | | | | [place] | | | | | [address] | | + + + + + | Vince Loredo | ECON | [place] | | + + + + + Care Team Providers + +------+ + | Care Web Communications Specialist Name | Role | Phone | + +------+ + | Dominick Clark | PCP | | + +------+ + Reason for Visit + + + | Reason | Comments | + + + | Follow-up visit | H/O Breast Ca | + + + Encounter Details +--------+ + + + + | Date | Type | Department | Care Team | Description | +--------+ + + + + | 09/10/ | Clinical | [facility] | | Follow-up visit (H/O | | 2018 | Support | Center [address] | | Breast Ca) | | | Staff | [place], | | | | | | [place] [address] | | | | | | [phone] | | | +--------+ + + + [...] documented as of this encounter Progress Notes Mónica Cote MA - 09/10/2017 6:10 AM PDTFormatting of this note might be different fro m the original. Patient presented in clinic today for Chief Complaint Patient presents with Follow-up visit H/O Breast Ca There were no vitals taken for this visit. Allergies Allergen Reactions Penicillin G Hives Sulfa (Sulfonamide Antibiotics) Hives Tylenol-Codeine #3 [Acetaminophen-Codeine] Pruritus Vicodin [Hydrocodone-Acetaminophen] Nausea/Vomiting Cephalexin Pruritus Medications history reviewed. A hydrogen operator was offered to the patient and they declined. Mónica Cote MA documented in this en counter Plan of Treatment Not on filedocumented as of this encounter Visit Diagnoses + + | Diagnosis | + + | History of breast cancer - Primary Personal history of malignant neoplasm of breast | + + documented in this encounter"
--- OUTSIDE RECORDS SUMMARY | ~2018-09-10 | XMS | Encounter Summary ---
Demographics + + + | Address | [address] | | | [place] [address] | + + + | Home Phone | | + + + | Preferred Language | Unknown | + + + | Marital Status | | + + + | Worship Affiliation | NON | + + + | Race | White | + + + | Ethnic Group | Not or | + + + Author + + + | Author | [facility] | + + + | Organization | [facility] | + + + | Address | Unknown | + + + | Phone | Unavailable | + + + Support + + + + + | Name | Relationship | Address | Phone | + + + + + | Ted Casas | ECON | [address] | | | | | [place] | | | | | [address] | | + + + + + | Carmen Renteria | ECON | [address] | | | | | [place] | | | | | [address] | | + + + + + | Vince Loredo | ECON | [place] | | + + + + + Care Team Providers + +------+ + | Care Evp Name | Role | Phone | + [...] | | | | | The | [address] | | | | | [place], [place] | [phone] | | | | | [address] | | | | | | [phone] | | | +--------+---------+ + + + [...] (SGPT) (U/L) 09/10/2017 20 7-51 EGFR - MOSOTHO (mL/min) 09/10/2017 >60 >60- EGFR NON -MOSOTHO (mL/min) 09/10/2017 >60 >60- ANION GAP (mmol/L) [...] Nausea/Vomiting Cephalexin Pruritus Medications history reviewed. A salesperson stereo equipment was offered to the patient and they [...]
--- OUTSIDE RECORDS SUMMARY | ~2018-09-10 | XMS | Encounter Summary ---
Demographics + + + | Address | [address] | | | [place] [address] | + + + | Home Phone | | + + + | Preferred Language | Unknown | + + + | Marital Status | | + + + | Catholic Affiliation | NON | + + + | Race | White | + + + | Ethnic Group | Not or | + + + Author + + + | Author | [facility] | + + + | Organization | [facility] | + + + | Address | Unknown | + + + | Phone | Unavailable | + + + Support + + + + + | Name | Relationship | Address | Phone | + + + + + | Ted Casas | ECON | [address] | | | | | [place] | | | | | [address] | | + + + + + | Carmen Renteria | ECON | [address] | | | | | [place] | | | | | [address] | | + + + + + | Vince Loredo | ECON | [place] | | + + + + + Care Team Providers + +------+ + | Care Regional Guide Name | Role | Phone | [...] [place] | | | | | | [address] | | | | | | [phone] | | | | | | | [...] 15 | 8 - 30 MG/DL | [facility] | | | (LAB) | | | A MEDICAL | | | | | | CENTER | | + + + + + + | CREATININE | 0.58 (L) | 0.6 - 1.1 MG/DL | [facility] | | | PLASMA | | | A MEDICAL | | | (LAB) | | | CENTER | | + + + + + + | BUN/CREATIN | 25 (H) | 6 - 20 RATIO | [facility] | | | INE RATIO | | [...] | + + + + + | [facility] | And | [place] [address] | [phone] | | MEDICAL [place] | Streets | | | + + + + + | [facility] | And | [place] [address] | | | MEDICAL CENTER | Streets [...] + + + | BANDS % | SPORTS CARTOONIST | 0 - 7 % | [facility] | | | | | | A MEDICAL | | | | | | CENTER | | + +---------+ + + + | BANDS # | SPORTS CARTOONIST | 0.00 - 0.70 x10 | [facility] [...] | + + + + + | [facility] | And [place] | [place] [address] | [phone] | | [facility] | Streets | | | + + + + + | [facility] | And | [place] [address] | | | [facility] | [facility] | | | + + + + + documented in this encounter Visit Diagnoses Not on filedocumented in this encounter"
--- OUTSIDE RECORDS SUMMARY | ~2018-09-10 | XMS | Encounter Summary ---
Demographics + + + | Address | [address] | | | [place] [address] | + + + | Home Phone [...] + | Ted Patterson | ECON | [address] | | | | | [place] | | | | | [address] | | + + + + + | Carmen Renteria | ECON | [address] | | | | | [place] | | | | | [address] | | + + + + + | Vince Loredo | ECON | [place] | | + + + + + Care Team Providers + +------+ + | Care Adventure Guide Name | Role | Phone | [...] [place] | | | | | [address] | [address] | | | | | | [phone] | | | | | | | [...] Erna Rainey MD - 03/16/2013 2:02 PM [facility] [address] [place] [address] ROM[address] PATTERSON ANN DATE OF SERVICE: March [...] her bone density before returning visit. XF/MedQ /[id number] ROMAN PATTERSON [id number] : 54 [id number] SERVICE DATE: 03/16/13 cc: Adrián Gregory M.D. Electronically Signed 03/31/13 1203 X MD LEONARDO Brown LEE ANN [id number] : 54 [id number] SERVICE DATE: 03/16/13 12 :28 PM Erna Braden MD - 07/29/2012 10:39 PM PDT [facility] [address] [place] [address] ROM[address] PATTERSON DATE OF SERVICE: July 29, [...] study in 2 years. XF/MedQ ROMAN PATTERSON [id number] : 54 [id number] SERVICE DATE: 07/29/12 /[id number] cc: Adrián Gregory M.D. Electronically Signed 08/04/12 0840 X MD LEONARDO Brown LEE ANN [id number] : 54 [id number] SERVICE DATE: 07/29/12 12 :22 PM Erna Braden MD - 06/17/2012 8:51 PM [facility] [address] [place] [address] ROMAN PATTERSON DATE OF SERVICE: June 17, [...] , she is planning to go to [facility], via train in the second half of [...] weeks for a returning visit. PAKO/ROMAN Crain [id number] : 54 [id number] SERVICE DATE: 06/17/12 /[id number] cc: Adrián Gregory M.D. Electronically Signed 06/18/12 0853 X MD LEONARDO Brown LEE ANN [id number] : 54 [id number] SERVICE DATE: 06/17/12 12 :20 PM PDTdocumented in this encounter Plan of Treatment Not on filedocumented as of this encounter Visit Diagnoses Not on filedocumented in this encounter"
--- OUTSIDE RECORDS SUMMARY | ~2018-09-10 | XMS | Encounter Summary ---
Demographics + + + | Address | [address] | | | [place] [address] | + + + | Home Phone [...] + | Ted Casas | ECON | [address] | | | | | [place] | | | | | [address] | | + + + + + | Carmen Renteria | ECON | [address] | | | | | [place] | | | | | [address] | | + + + + + | Vince Loredo | ECON | [place] | | + + + + + Care Team Providers + +------+ + | Care Woods Overseer Name | Role | Phone | + [...] 12/31/ | Refill | [facility] | Iris Champion, | Refill Request | | 2016 | | Center - Medical | MD | | | | | Oncology [address] | | | | | | [place] | | | | | | [place] | | | | | | [address] | | | | | | [phone] | | | +--------+--------+ + + + [...]
--- OUTSIDE RECORDS SUMMARY | ~2018-09-10 | XMS | Encounter Summary ---
Demographics + + + | Address | [address] | | | [place] [address] | + + + | Home Phone [...] + + + | Author | [facility] | + + + | Organization | [facility] | + + + | Address | Unknown | + + + | Phone | Unavailable | + + + Support + + + + + | Name | Relationship | Address | Phone | + + + + + | Ted Casas | ECON | [address] | | | | | [place] | | | | | [address] | | + + + + + | Carmen Renteria | ECON | [address] | | | | | [place] | | | | | [address] | | + + + + + | Vince Loredo | ECON | [place] | | + + + + + Care Team Providers + +------+ + | Care Manager Float Name | Role | Phone | + [...] Refill | [facility] | [place]isa Mota GUN PERFORATOR | Refill Request | | 2016 | | [place] - [facility] | [address] | | | | | Oncology [address] | [facility] [place] [address] | | | | | [place] | [phone] | | | | | [place], [place] | | | | | | [address] | | | | | | [phone] | | | +--------+--------+ + + + [...]
--- OUTSIDE RECORDS SUMMARY | ~2018-09-10 | XMS | Encounter Summary ---
Demographics + + + | Address | [address] | | | [place] [address] | + + + | Home Phone [...] + | Ted Casas | ECON | [address] | | | | | [place] | | | | | [address] | | + + + + + | Carmen Renteria | ECON | [address] | | | | | [place] | | | | | [address] | | + + + + + | Vince Loredo | ECON | [place] | | + + + + + Care Team Providers + +------+ + | Care Assembly Operator Name | Role | Phone | [...] [place] | | | | | | [address] | | | | | | [phone] | | | | | | | [...] +--------+ + + + | BONE SCAN [id number] | Routin | 07/05/2010 | | Results for this | | | e | 10:32 AM | | procedure are in the | | | | PDT | | results section. | + +--------+ + + + documented in this encounter Results BONE SCAN [id number] (07/05/2010 10:32 AM PDT) + + | [...]
--- OUTSIDE RECORDS SUMMARY | ~2018-09-10 | XMS | Encounter Summary ---
Demographics + + + | Address | [address] | | | [place] [address] | + + + | Home Phone [...] + | Ted Casas | ECON | [address] | | | | | [place] | | | | | [address] | | + + + + + | Carmen Renteria | ECON | [address] | | | | | [place] | | | | | [address] | | + + + + + | Vince Loredo | ECON | [place] | | + + + + + Care Team Providers + +------+ + | Care Project Management Analyst Name | Role | Phone | [...] [place], [place] | | | | | [place] | [address] | | | | | [place], [place] | [phone] | | | | | [address] | | | | | | [phone] | | | +--------+--------+ + + + [...]
--- OUTSIDE RECORDS SUMMARY | ~2018-09-10 | XMS | Encounter Summary ---
Demographics + + + | Address | [address] | | | [place] [address] | + + + | Home Phone | | + + + | Preferred Language | Unknown | + + + | Marital Status | | + + + | Rastafarian Affiliation | Unknown | + + + | Race | Unknown | + + + | Ethnic Group | Unknown | + + + Author + + + | Author | [facility] | + + + | Organization | [facility] | + + + | Address | Unknown | + + + | Phone | Unavailable | + + + Support + + + + + | Name | Relationship | Address | Phone | + + + + + | Ted Casas | ECON | [address] | | | | | [place] | | | | | [address] | | + + + + + | Jersey Marroquin | ECON | [place] | | | | | [address] | | + + + + + Care Team Providers + +------+ + | Care Soyfreeze Operator Name | Role | Phone | [...] MEDICAL | | | | | | [facility] | [place] | | | | | | Drive | PHYSICAL | | | | | | [facility] [place] | THERAP[address] | | | | | | [address] | [address] | | | | | | Phone: | [place], [place] | | | | | | [phone] | [address] | | | | | | Fax: | Phone: | | | | | | [phone] | [phone] | | | | | | | Fax: | | | | | | | [phone] | + + + + + + [...] | | | extremity | [address], | [place], [place] | | | | | | [place] [address] | [address] Phone: | | | | | | Phone: | [phone] | | | | | | [phone] | Fax: | | | | | | Fax: | [phone] | | | | | | [phone] | | + +--------+ + + + + Encounter Details +--------+---------+ + + + | Date | Type | Department | Care Team | Description | +--------+---------+ + + + | 09/05/ | Office | [facility] | Wally Shell, | Achilles tendon pain | | 2019 | Visit | [facility] | MD [address] | (Primary Dx); | | | | [address] | Drive [place], [place] | Lumbosacral | | | | [place] | [address] | radiculopathy at L5; | | | | [address] | | Polyneuropathy | | | | [phone] | | | +--------+---------+ + + + [...] | | | | | | Drive [place], [place] | | | | | | [address] | | | | | | | [...]
--- OUTSIDE RECORDS SUMMARY | ~2018-09-10 | XMS | Encounter Summary ---
Demographics + + + | Address | [address] | | | [place] [address] | + + + | Home Phone [...] + | Ted Casas | ECON | [address] | | | | | [place] | | | | | [address] | | + + + + + | Carmen Renteria | ECON | [address] | | | | | [place] | | | | | [address] | | + + + + + | Vince Loredo | ECON | [place] | | + + + + + Care Team Providers + +------+ + | Care Testing And Regulating Chief Name | Role | Phone | + [...] | | | | Street The | [address] | | | | | [place] | [phone] | | | | | [address] | | | | | | [phone] | | | +--------+ + + + [...]
--- OUTSIDE RECORDS SUMMARY | ~2018-09-10 | XMS | Encounter Summary ---
Demographics + + + | Address | [address] | | | [place] [address] | + + + | Home Phone [...] + | Ted Casas | ECON | [address] | | | | | [place] | | | | | [address] | | + + + + + | Carmen Renteria | ECON | [address] | | | | | [place] | | | | | [address] | | + + + + + | Vince Loredo | ECON | [place] | | + + + + + Care Team Providers + +------+ + | Care Children'S Book Author Name | Role | Phone | + [...] [place] | | | | | | [address] | | | | | | [phone] | | | | | | | [...] 0.3 | 0 - 0.6 x10 | [facility] | | | | | 3/UL | A MEDICAL | | | | | | CENTER | | + +---------+ + + + | BANDS % | 0.7 | 0 - 7 % | [facility] | | | | | | A MED[facility] | | | | | | CENTER | | + +---------+ + + + | BANDS # | 0.0 (L) | 0.00 - 0.70 x10 | [facility] | | | | | 3/UL | [...] | + + + + + | [facility] | And | [place] [address] | | | [facility] | Streets [...] (L) | [address]Q/L | [facility] | | | PLASMA | | | [...] [facility] | And | [place] [address] | | | [facility] | Streets | | | + + + + + documented in this encounter Visit Diagnoses Not on filedocumented in this encounter"
--- OUTSIDE RECORDS SUMMARY | ~2018-09-10 | XMS | Encounter Summary ---
Demographics + + + | Address | [address] | | | [place] [address] | + + + | Home Phone [...] [place] | | | | | [address] | | + + + + + | Carmen Renteria | ECON | [address] | | | | | [place] | | | | | [address] | | + + + + + | Vince Loredo | ECON | [place] | | + + + + + Care Team Providers + +------+ + | Care Replenishment Merchandising Associate Name | Role | Phone | [...] | | | | | | [place] [address] | | | | | | [phone] | | | +--------+ + + + [...] Nausea/Vomiting Cephalexin Pruritus Medications history reviewed. A molecular biologist was offered to the patient and they declined. Mónica Cote MA documented in this en counter Plan of Treatment Not on filedocumented as of this encounter Visit Diagnoses + + | Diagnosis | + + | History of breast cancer - Primary Personal history of malignant neoplasm of breast | + + documented in this encounter"
--- OUTSIDE RECORDS SUMMARY | ~2018-09-10 | XMS | Encounter Summary ---
Demographics + + + | Address | [address] | | | [place] [address] | + + + | Home Phone [...] + | Ted Casas | ECON | [address] | | | | | [place] | | | | | [address] | | + + + + + | Carmen Renteria | ECON | [address] | | | | | [place] | | | | | [address] | | + + + + + | Vince Loredo | ECON | [place] | | + + + + + Care Team Providers + +------+ + | Care Cathead Operator Name | Role | Phone | [...] Other | | | | Surgery at [facility] [address] | | Specified | | | | [address] | | Pre-Operative | | | | Code: [facility] | | Examination | | | | for Health and | | | | | | Healing, 5th Floor | | | | | | [place], [place] | | | | | | [address] | | | | | | [phone] | | | +--------+---------+ + + + [...] surgeries scheduled to take place on the marfa at the [facility]: Surgeries scheduled in the [facility]): registration is located on the 4th floor of [facility] (Day Surgery). Surgeries scheduled in the [facility]: registration is located on the 9th floor. Surgeries scheduled in [facility]: registration is located on the 6th floor. Surgeries scheduled in the [facility]: registration is located i n the [facility] on the first floor. For surgeries scheduled to take place at the [facility]: registration is l [...] If you use specialized medical equipment at [facility], please check with your provider before [...] | + + + + + | [facility] | [address] | [place] [address] | | | PATHOLOGY | [address] | | | + + + + + | [facility] | [address] | [place] [address] | | | PATHOLOGY | [address] [...] | + + + + + | [facility] | [address] | [place] [address] | | | PATHOLOGY | [address] | | | + + + + + | [facility] | [address] | [place] [address] | | | PATHOLOGY | [address] [...] + + + + + | [facility] DEPART[facility] | [address] | [place] [address] | | | PATHOLOGY | [address] | | | + + + + + | [facility] | [address] | [place] [address] | | | PATHOLOGY | [address] [...] | + + + + + | [facility] | [address] | [place] [address] | | | PATHOLOGY | [address] | | | + + + + + | [facility] | [address] | [place] [address] | | | PATHOLOGY | [address] | | | + + + + + documented in this encounter Visit Diagnoses + + | Diagnosis | + + | Acquired absence of breast Acquired absence of breast and nipple | + + | Other specified pre-operative examination | + + documented in this encounter
--- OUTSIDE RECORDS SUMMARY | ~2018-09-10 | XMS | Encounter Summary ---
Demographics + + + | Address | [address] | | | [place] [address] | + + + | Home Phone | | + + + | Preferred Language | Unknown | + + + | Marital Status | | + + + | Quaker Affiliation | NON | + + + [...] + | Ted Casas | ECON | [address] | | | | | [place] | | | | | [address] | | + + + + + | Carmen Renteria | ECON | [address] | | | | | [place] | | | | | [address] | | + + + + + | Vince Loredo | ECON | [place] | | + + + + + Care Team Providers + +------+ + | Care Manufacturing Engineer Paint Name | Role | Phone | + [...] female breast (HCC) | | | | [address] | | (Primary Dx) | | | | [phone] | | | +--------+------+ + + + [...] + + | [facility] | | [place] [address] | | + +---------+ + + [place] [...] + + + | [facility] | [address] | [place] [address] | | | - [place] | [address] | | | + + [...] Range: Non-smokers: 0.0-3.0 ng/mL | [facility] | | Smokers: 0.0-5.0 ng/mL | [facility] | + + + + + + + + | Performing | Address | City/State/Zipcode | Phone Number | | Organization | | | | + + + + + | [facility] | And | [place] [address] | [phone] | | MEDICAL CENTER | Streets | [...] | | A MEDICAL | | | [place] | | | CENTER | | + [...] equation recommended by the | [facility] | | National Kidney Disease Education Program. Estimated GFR | [facility] | | Interpretive Information: <60 mL/min/1.73 [...] [facility] | And | [place] [address] | [phone] | | [facility] | Streets | | | + + + + + documented in this encounter Visit Diagnoses + + | Diagnosis | + + | Malignant neoplasm of upper-outer quadrant of right female breast (HCC) - Primary | | Malignant neoplasm of upper-outer quadrant of female breast | + + documented in this encounter"
--- OUTSIDE RECORDS SUMMARY | ~2018-09-10 | XMS | Encounter Summary ---
Demographics + + + | Address | [address] | | | [place] [address] | + + + | Home Phone [...] + | Ted Casas | ECON | [address] | | | | | [place] | | | | | [address] | | + + + + + | Carmen Renteria | ECON | [address] | | | | | [place] | | | | | [address] | | + + + + + | Vince Loredo | ECON | [place] | | + + + + + Care Team Providers + +------+ + | Care Counter Top Assembler Name | Role | Phone | [...] | | | | | | [place] [address] | | | | | | [phone] | | | +--------+ + + + [...] Nausea/Vomiting Cephalexin Pruritus Medications history reviewed. A ethylbenzene oxidizer was offered to the patient and they declined. Mónica Cote MA documented in this en counter Plan of Treatment Not on filedocumented as of this encounter Visit Diagnoses + + | Diagnosis | + + | History of breast cancer - Primary Personal history of malignant neoplasm of breast | + + documented in this encounter"
--- OUTSIDE RECORDS SUMMARY | ~2018-09-10 | XMS | Encounter Summary ---
Demographics + + + | Address | [address] | | | [place] [address] | + + + | Home Phone [...] + | Ted Casas | ECON | [address] | | | | | [place] | | | | | [address] | | + + + + + | Carmen Renteria | ECON | [address] | | | | | [place] | | | | | [address] | | + + + + + | Vince Loredo | ECON | [place] | | + + + + + Care Team Providers + +------+ + | Care Bread Packer Name | Role | Phone | [...] [place] | | | | | | [address] | | | | | | [phone] | | | | | | | [...] [facility] | And | [place] [address] | [phone] | | [facility] | Streets | | | + + + + + | [facility] | And | [place] [address] | | | [facility] | [place] | | | + + + + [...] [facility] | And [place] | [place] [address] | [phone] | | MEDICAL CENTER | Streets | | | + + + + + | [facility] | And [place] | [place] [address] | | | MEDICAL CENTER | Streets | | | + + + + + documented in this encounter Visit Diagnoses Not on filedocumented in this encounter"
--- OUTSIDE RECORDS SUMMARY | ~2018-09-10 | XMS | Encounter Summary ---
Demographics + + + | Address | [address] | | | [place] [address] | + + + | Home Phone [...] + | Ted Patterson | ECON | [address] | | | | | [place] | | | | | [address] | | + + + + + | Carmen Renteria | ECON | [address] | | | | | [place] | | | | | [address] | | + + + + + | Vince Loredo | ECON | [place] | | + + + + + Care Team Providers + +------+ + | Care Coil Assembler Name | Role | Phone | [...] | | | | right female | [facility] | | | | | breast, | [place], [place] | [place], | | | | | unspecified | [address] | [place] [address] | | | | | site of | Phone: | | | | | | breast | [phone] | | | | | | Procedures | Fax: | | | | | | PET CT SKULL | [phone] | | | | | | BASE [...] unspecified | | | | The | [address] | laterality, | | | | [place], [place] | [phone] | unspecified site of | | | | [address] | | breast (HCC) | | | | [phone] | | (Primary Dx); | | | [...] 7 - 51 U/L Final EGFR - [place] 08/24/2015 >60 >60 mL/min Final EGFR NON -[place] 08/24/2015 >60 >60 mL/min Final ANION GAP [...] MA - 05/16/2016 2:00 PM P STA Tank Inspector was offered to the patient and declined. tyler/ma documented in this en counter Plan of Treatment Not on filedocumented as of this encounter Results PET CT SKULL BASE TO MID-THIGHS (07/04/2016 2:23 PM PDT) + + | Specimen | + + | | + + + + + | Narrative | Performed At | + + + | [address] [place] [address] | [facility] | | [place] [address] DEPARTMENT | | [phone] | RADIOLOGY | | Name: PERRY PATTERSON ANN Phys: MARISOL ALBERTO | | | : 1950 Sex: F CSN: | | | [id number] MR# [id number] Exam Date: | | | 07/04/2016 EXAM: [...] Transcribed Date/Time: 07/05/2016 01:05 | | | Grid Trimmer: FLUENCY | | + + + + + | Procedure Note | + + | Interface, Radiology Results - 07/05/2016 1:09 AM PDT [address] | | [address] [place] [address] | | Name: PERRY PATTERSON ANN Phys: REMYDINORAHMARISOL S : 1950 Sex: F | | CSN: [id number] MR# [id number] Exam Date: 07/04/2016 EXAM:PET-CT CLINICAL | | [...] | | |Transcribed Date/Time: 07/05/2016 01:05 | |Grid Trimmer: FLUENCY | | | | | | [...] DIAGNOSTICS | [address] | [place] [address] | | | - [place] | 200 | | | + + [...] | Reference Range: Non-smokers: 0.0-3.0 ng/mL | [facility] | | Smokers: 0.0-5.0 ng/mL | MEDICAL CENTER | + + + + + + + + | Performing | Address | City/State/Zipcode | Phone Number | | Organization | | | | + + + + + | [facility] | [address] | [place] [address] | [phone] | | [facility] | Streets | | | + + + + + COMPLETE METABOLIC SET (NA,K,CL,CO2,BUN,CREAT,GLUC,CA,AST,ALT,BILI TOTAL,ALK PHOS,ALB,PROT TOTAL) (05/16/2016 2:33 PM PST) + +---------+ + + + | Component | Value | Ref Range | Performed | Pathologist | | | | | At | Signature | + +---------+ + + + | GLUCOSE, | 302 (H) | 70 - 105 mg/dL | [facility] | | | PLASMA | | | A MEDICAL | | | (LAB) | | | CENTER | | + +---------+ + + + | BUN, PLASMA | 14 | 6 - 26 mg/dL | [facility] | | | (LAB) | | [...] | | A MEDICAL | | | [place] | | | CENTER | | [...] Kidney Disease Education Program. Estimated GFR | [facility] | | Interpretive Information: <60 mL/min/1.73 [...] | [facility] | And | [place] [address] | [phone] | | [facility] | Streets | | | + [...]
--- OUTSIDE RECORDS SUMMARY | ~2018-09-10 | XMS | Encounter Summary ---
Demographics + + + | Address | [address] | | | [place] [address] | + + + | Home Phone [...] + | Ted Patterson | ECON | [address] | | | | | [place] | | | | | [address] | | + + + + + | Carmen Renteria | ECON | [address] | | | | | [place] | | | | | [address] | | + + + + + | Vince Loredo | ECON | [place] | | + + + + + Care Team Providers + +------+ + | Care Cloth Feeder Name | Role | Phone | + [...] | | | | cribed | [place] | [place] | | | | | [address] | [address] | | | | | | [phone] | | | | | | | [...] Erna Rainey MD - 06/27/2010 9:35 PM [facility] [address] [place] [address] [address] ANN DATE OF SERVICE: June [...] a couple weeks. 3. I will continue mocab-0-qohxi followup if bone scan negative. XF/MedQ /[id number] Electronically Signed 10/12/10 1014 X MD LEONARDO [place] [id number] : 52 [id number] SERVICE DATE: 06/27/10 9 :10 AM PDTdocumented in this encounter Plan of Treatment Not on filedocumented as of this encounter Visit Diagnoses Not on filedocumented in this encounter"
--- OUTSIDE RECORDS SUMMARY | ~2018-09-10 | XMS | Encounter Summary ---
Demographics + + + | Address | [address] | | | [place] [address] | + + + | Home Phone | | + + + | Preferred Language | Unknown | + + + | Marital Status | | + + + | Jain Affiliation | NON | + + + | Race | White | + + + | Ethnic Group | Not or | + + + Author + + + | Author | [facility] | + + + | Organization | [facility] | + + + | Address | Unknown | + + + | Phone | Unavailable | + + + Support + + + + + | Name | Relationship | Address | Phone | + + + + + | Ted Casas | ECON | [address] | | | | | [place] | | | | | [address] | | + + + + + | Carmen Renteria | ECON | [address] | | | | | [place] | | | | | [address] | | + + + + + | Vince Loredo | ECON | [place] | | + + + + + Care Team Providers + +------+ + | Care Specification Consultant Name | Role | Phone | [...] Refill | [facility] | Eloisa Mota FLIGHT ENGINEER PERFORMANCE QUALIFIED | Refill Request | | 2016 | | [place] [facility] | [address] | | | | | Oncology [address] | [facility] [place] [address] | | | | | [place] | [phone] | | | | | [place], [place] | | | | | | [address] | | | | | | [phone] | | | +--------+--------+ + + + [...]
--- OUTSIDE RECORDS SUMMARY | ~2018-09-10 | XMS | Encounter Summary ---
Demographics + + + | Address | [address] | | | [place] [address] | + + + | Home Phone [...] + | Ted Casas | ECON | [address] | | | | | [place] | | | | | [address] | | + + + + + | Carmen Renteria | ECON | [address] | | | | | [place] | | | | | [address] | | + + + + + | Vicne Loredo | ECON | [place] | | + + + + + Care Team Providers + +------+ + | Care Customer Acquisition Specialist Name | Role | Phone | + +------+ + | Dominick Clark | PCP | | + +------+ + Encounter Details +--------+ + + + + | Date | Type | Department | Care Team | Description | +--------+ + + + + | 07/05/ | Facing Cutting Machine Operator | [facility] | Erna Rainey, | Malignant neoplasm | | 2017 | | Center - Medical | MD [address] | of upper-outer | | | | Oncology [address] | [place], [place] | quadrant of right | | | | Street The | [address] | female breast (HCC) | | | | [place] | [phone] | (Primary Dx) | | | | [address] | | | | | | [phone] | | | +--------+ + + + [...] | + + + + + | [facility] | [address] | [place] [address] | [phone] | | MEDICAL CENTER | Streets | [...] | | A MEDICAL | | | [place] | | | CENTER | | + [...] Kidney Disease Education Program. Estimated GFR | [facility] | | Interpretive Information: <60 mL/min/1.73 sq [...] | + + + + + | [facility] | And [place] | [place] [address] | [phone] | | [facility] | Streets | | | + + + + + documented in this encounter Visit Diagnoses + + | Diagnosis | + + | Malignant neoplasm of upper-outer quadrant of right female breast (HCC) - Primary | | Malignant neoplasm of upper-outer quadrant of female breast | + + documented in this encounter"
--- OUTSIDE RECORDS SUMMARY | ~2018-09-10 | XMS | Encounter Summary ---
Demographics + + + | Address | [address] | | | [place] [address] | + + + | Home Phone [...] + + + | Author | [facility] | + + + | Organization | [facility] | + + + | Address | Unknown | + + + | Phone | Unavailable | + + + Support + + + + + | Name | Relationship | Address | Phone | + + + + + | Ted Casas | ECON | [address] | | | | | [place] | | | | | [address] | | + + + + + | Carmen Renteria | ECON | [address] | | | | | [place] | | | | | [address] | | + + + + + | Vince Loredo | ECON | [place] | | + + + + + Care Team Providers + +------+ + | Care Journeyman Patternmaker Name | Role | Phone | + [...] [place] | | | | | | [address] | | | | | | [phone] | | | | | | | [...] 15 | 8 - 30 MG/DL | [facility] | | | (LAB) | | | A MEDICAL | | | | | | CENTER | | + + + + + + | CREATININE | 0.58 (L) | 0.6 - 1.1 MG/DL | [facility] | | | PLASMA | | | A MEDICAL | | | (LAB) | | | CENTER | | + + + + + + | BUN/CREATIN | 25 (H) | 6 - 20 RATIO | [facility] | | | INE RATIO | [...] + + + + + | [facility] | And | [place] [address] | [phone] | | [facility]ICAL [place] | Streets | | | + + + + + | [facility] | And | [place] [address] | | | MEDICAL CENTER | Streets [...] + + + | BANDS % | HEARING CONSULTANT | 0 - 7 % | [facility] | | | | | | A MEDICAL | | | | | | CENTER | | + +---------+ + + + | BANDS # | HEARING CONSULTANT | 0.00 - 0.70 x10 | [facility] [...] + + + + + | [facility] | And [place] | [place] [address] | [phone] | | [facility] | Streets | | | + + + + + | [facility] | And | [place] [address] | | | [facility] | [facility] | | | + + + + + documented in this encounter Visit Diagnoses Not on filedocumented in this encounter"
--- OUTSIDE RECORDS SUMMARY | ~2018-09-10 | XMS | Encounter Summary ---
Demographics + + + | Address | [address] | | | [place] [address] | + + + | Home Phone [...] + | Ted Casas | ECON | [address] | | | | | [place] | | | | | [address] | | + + + + + | Carmen Renteria | ECON | [address] | | | | | [place] | | | | | [address] | | + + + + + | Vince Loredo | ECON | [place] | | + + + + + Care Team Providers + +------+ + | Care Consumer Lending Manager Name | Role | Phone | [...] [place] | | | | | | [address] | | | | | | [phone] | | | | | | | [...] + + + | BANDS % | RETENTION MANAGER | 0 - 7 % | [facility] | | | | | | A MEDICAL | | | | | | CENTER | | + + + + + + | BANDS # | RETENTION MANAGER | 0.00 - 0.70 x10 | [facility] [...] + + + + + | [facility] | And | [place] [address] | | | [facility] | [facility] | | | + + + + + COMPLETE METABOLIC SET (NA,K,CL,CO2,BUN,CREAT,GLUC,CA,AST,ALT,BILI TOTAL,ALK PHOS,ALB,PROT TOTAL) (01/09/2011 8:19 AM PDT) + + + + + + | Component | Value | Ref Range | Performed | Pathologist | | | | | At | Signature | + + + + + + | SODIUM, | 142 | 137 - 146 MEQ/L | [facility] | | | PLASMA | | [...] + + + + + | [facility] | And | [place] [address] | | | MEDICAL CENTER | Streets | | | + + + + + documented in this encounter Visit Diagnoses Not on filedocumented in this encounter"
--- OUTSIDE RECORDS SUMMARY | ~2018-09-10 | XMS | Encounter Summary ---
Demographics + + + | Address | [address] | | | [place] [address] | + + + | Home Phone [...] + | Ted Patterson | ECON | [address] | | | | | [place] | | | | | [address] | | + + + + + | Carmen Renteria | ECON | [address] | | | | | [place] | | | | | [address] | | + + + + + | Vince Loredo | ECON | [place] | | + + + + + Care Team Providers + +------+ + | Care Field Crop Farmworker Name | Role | Phone | + [...] [place] | | | | | [address] | [address] | | | | | | [phone] | | | | | | | [...] ReddJakob Leandro - 01/06/2009 4:40 PM PDT [facility] [address] [place] [address] ROM[address]TER[address] DATE OF SERVICE: January 06, [...] months for next follow-up. XF/MedQ ROMAN PATTERSON [id number] : 54 [id number] SERVICE DATE: 01/06/09 /[id number] cc: Adrián Gregory M.D. Electronically Signed X MD LEONARDO [place] LEE ANN A [id number] : 52 [id number] SERVICE DATE: 01/06/09 12 :20 PM PDTdocumented in this encounter Plan of Treatment Not on filedocumented as of this encounter Visit Diagnoses Not on filedocumented in this encounter"
--- OUTSIDE RECORDS SUMMARY | ~2018-09-10 | XMS | Encounter Summary ---
Demographics + + + | Address | [address] | | | [place] [address] | + + + | Home Phone [...] + | Ted Casas | ECON | [address] | | | | | [place] | | | | | [address] | | + + + + + | Carmen Renteria | ECON | [address] | | | | | [place] | | | | | [address] | | + + + + + | Vince Loredo | ECON | [place] | | + + + + + Care Team Providers + +------+ + | Care Working Second Hand Name | Role | Phone | [...] | | | | | | | [facility] | | | | | | | HEALTH AND | | | | | | | [facility] | | | | | | | [place], [place] | | | | | | | [address] Phone: | | | | | | | [phone] | | | | | | | Fax: | | | | | | | [phone] | +--------+--------+ + + + + Encounter [...] | | | [facility] | [place], [place] | | | | | FOR HEALTH AND | [address] | | | | | [place], | [phone] | | | | | [place] [address] | | | | | | [phone] | | | +--------+ + + + [...] Performed At | + + + | [id number] | | | [id number] | | | [id number] [place] | | | A [id number] Date: | | | 09/21/2008 Attending | | | Surgeon: Jelena Carias M.D. | | | Food And Beverage Checker(s): Maxx | | | Josephine Farooq Preoperative [...] Jelena | | | Sachin Carias M.D. [facility] / [id number] / [id number] / [id number] / | | | | | + + + + + | Procedure Note | + + | Jelena Carias MD - 09/21/2008 12:00 AM PDT [id number] | | [id number] [place] | | A [id number] Date: 09/21/2008 Attending Surgeon: | | Jelena Carias M.D. Food And Beverage Checker(s): Maxx Farooq M.D. | | Preoperative Diagnosis(es):Right [...] in stable | | condition. Jelena Carias M.D.[facility] / [id number] / [id number] / [id number] / T: | | 09/21/2008 | |equipment, [...] |Jelena Carias M.D. | |JE / | |[id number] / [id number] / [id number] / | | | | | | | | | | | | | | | | | | | | | + + documented in this encounter Visit Diagnoses Not on filedocumented in this encounter
--- OUTSIDE RECORDS SUMMARY | ~2018-09-10 | XMS | Clinical Summary ---
Demographics + + + | Address | [address] | | | [place] [address] | + + + | Home Phone [...] + | Ted Casas | ECON | [address] | | | | | [place] | | | | | [address] | | + + + + + | Carmen Renteria | ECON | [address] | | | | | [place] | | | | | [address] | | + + + + + | Vince Loredo | ECON | [place] | | + + + + + Care Team Providers + +------+ + | Care Transplant Worker Name | Role | Phone | + +------+ + | Dominick Clark | PP | | + +------+ + Source Comments [facility] is fully live on both EpicCare Ambulatory and EpicCare InPatient.[facility] Allergies + + + + [...] | RAIL | xxxxxxxxxxx | Effect | [phone] | [address] | [address] | | | [address] | | [place] | 0 | [address] | re | | | [place] | | for | | [place], [place] | | | | RE | | all | | [phone] | | | | | | dates [...] Person | Self | [birth year] | [address] | | | al/Fam | | 2 | [phone] | [place] [address] | | | jitendra | | | 5 (Home) | | | | | | | [phone] | | | | | | | 10 (Work) | | + +--------+ +--------+ + + | Roman Casas | Person | Self | [birth year] | [address] | | | al/Fam | | 1950 | [phone] | [place] [address] | | | jitendra | | | [...]
--- OUTSIDE RECORDS SUMMARY | ~2018-09-10 | XMS | Encounter Summary ---
Demographics + + + | Address | [address] | | | [place] [address] | + + + | Home Phone [...] + | Ted Casas | ECON | [address] | | | | | [place] | | | | | [address] | | + + + + + | Carmen Renteria | ECON | [address] | | | | | [place] | | | | | [address] | | + + + + + | Vince Loredo | ECON | [place] | | + + + + + Care Team Providers + +------+ + | Care Transplant Rn Name | Role | Phone | + [...] | | | | Mail Code: | [place], [place] | | | | | | [facility] | [address] | | | | | | for Health | Phone: | | | | | | and Abdiel, | [phone] | | | | | | 5th Floor | Fax: | | | | | | [place], [place] | [phone] | | | | | | [address] | | | | | | | Phone: | | | | | | | [phone] | | +--------+--------+ + + + + Encounter Details +--------+---------+ + + + | Date | Type | Department | Care Team | Description | +--------+---------+ + + + | 06/29/ | Office | Plastic and | Jelena Carias, | S/P breast | | 2009 | Visit | Reconstructive | [address] | reconstruction; | | | | Surgery at [facility] [address] | [place], [place] | Hernia, epigastric | | | | [address] | [address] | | | | | Code: [facility] | [phone] | | | | | for Health and | | | | | | Healing, 5th Floor | | | | | | [place], [place] | | | | | | [address] | | | | | | [phone] | | | +--------+---------+ + + + [...]
--- OUTSIDE RECORDS SUMMARY | ~2018-09-10 | XMS | Encounter Summary ---
Demographics + + + | Address | [address] | | | [place] [address] | + + + | Home Phone [...] + | Ted Casas | ECON | [address] | | | | | [place] | | | | | [address] | | + + + + + | Carmen Renteria | ECON | [address] | | | | | [place] | | | | | [address] | | + + + + + | Vince Loredo | ECON | [place] | | + + + + + Care Team Providers + +------+ + | Care Ecotherapist Name | Role | Phone | + [...] [place] | | | | | | [address] | | | | | | [phone] | | | | | | | [...] 0 - 0.6 x10 | [facility] | | | | | 3/UL | A MEDICAL | | | | | | CENTER | | + +---------+ + + + | BANDS % | 0.7 | 0 - 7 % | [facility] | | | | | | A MEDICAL | | | | | | CENTER | | + +---------+ + + + | BANDS # | 0.0 (L) | 0.00 - 0.70 x10 | [facility] | | | | | 3/UL | [...] | + + + + + | [facility] | And | [place] [address] | | | [facility] | Streets | | | + + + + + COMPLETE METABOLIC SET (NA,K,CL,CO2,BUN,CREAT,GLUC,CA,AST,ALT,BILI TOTAL,ALK PHOS,ALB,PROT TOTAL) (01/06/2009 12:34 PM PDT) + +---------+ + + + | Component | Value | Ref Range | Performed | Pathologist | | | | | At | Signature | + +---------+ + + + | SODIUM, | 140 | 137 - 146 MEQ/L | [facility] | | | PLASMA | [...] + + + | [facility] | | [place] [address] | | | [facility] | [place] | | | + + + + + documented in this encounter Visit Diagnoses Not on filedocumented in this encounter"
--- OUTSIDE RECORDS SUMMARY | ~2018-09-10 | XMS | Encounter Summary ---
Demographics + + + | Address | [address] | | | [place] [address] | + + + | Home Phone [...] | + + + + + | eTd Casas | ECON | [address] | | | | | [place] | | | | | [address] | | + + + + + | Carmen Renteria | ECON | [address] | | | | | [place] | | | | | [address] | | + + + + + | Vince Loredo | ECON | [place] | | + + + + + Care Team Providers + +------+ + | Care Mechanical Maintenance Supervisor Name | Role | Phone | [...] Wall | | | | Surgery at [facility] [address] | [place], [place] | (Primary Dx) | | | | [address] | [address] | | | | | Code: [facility] | [phone] | | | | | for Health and | | | | | | Healing, 5th Floor | | | | | | [place], [place] | | | | | | [address] | | | | | | [phone] | | | +--------+---------+ + + + [...]
--- OUTSIDE RECORDS SUMMARY | ~2018-09-10 | XMS | Encounter Summary ---
Demographics + + + | Address | [address] | | | [place] [address] | + + + | Home Phone | | + + + | Preferred Language | Unknown | + + + | Marital Status | | + + + | Restoration Affiliation | NON | + + + [...] + | Ted Casas | ECON | [address] | | | | | [place] | | | | | [address] | | + + + + + | Carmen Renteria | ECON | [address] | | | | | [place] | | | | | [address] | | + + + + + | Vince Loredo | ECON | [place] | | + + + + + Care Team Providers + +------+ + | Care Silver Cleaner Name | Role | Phone | + [...] E | | | | | | [place] | | | | | | [place] | | | | | | [address] | | | | | | [phone] | | | +--------+--------+ + + + [...]
--- OUTSIDE RECORDS SUMMARY | ~2018-09-10 | XMS | Encounter Summary ---
Demographics + + + | Address | [address] | | | [place] [address] | + + + | Home Phone | | + + + | Preferred Language | Unknown | + + + | Marital Status | | + + + | Faith Affiliation | Unknown | + + + | Race | Unknown | + + + | Ethnic Group | Unknown | + + + Author + + + | Author | [facility] | + + + | Organization | [facility] | + + + | Address | Unknown | + + + | Phone | Unavailable | + + + Support + + + + + | Name | Relationship | Address | Phone | + + + + + | Ted Casas | ECON | [address] | | | | | [place] | | | | | [address] | | + + + + + | Jersey Marroquin | ECON | [place] | | | | | [address] | | + + + + + Care Team Providers + +------+ + | Care Data Processing Operator Name | Role | Phone | [...] MEDICAL | | | | | | [facility] | [place] | | | | | | Drive | PHYSICAL | | | | | | [facility] | THERAP[address] | | | | | | [address] | NW | | | | | | Phone: | [place], [place] | | | | | | [phone] | [address] | | | | | | Fax: | Phone: | | | | | | [phone] | [phone] | | | | | | | Fax: | | | | | | | [phone] | + + + + + + [...] | | | extremity | [address], | [place], [place] | | | | | | [place] [address] | [address] Phone: | | | | | | Phone: | [phone] | | | | | | [phone] | Fax: | | | | | | Fax: | [phone] | | | | | | [phone] | | + +--------+ + + + + Encounter Details +--------+---------+ + + + | Date | Type | Department | Care Team | Description | +--------+---------+ + + + | 09/05/ | Office | [facility] | Wally Shell, | Achilles tendon pain | | 2019 | Visit | [facility] | MD [address] | (Primary Dx); | | | | [address] | Drive [place], [place] | Lumbosacral | | | | [place], [place] | [address] | radiculopathy at L5; | | | | [address] | | Polyneuropathy | | | | [phone] | | | +--------+---------+ + + + [...] include epidural if her radicular symptoms radha mancrea Would also consider testing her for MTHFR [...] | | | | | | Drive [place], [place] | | | | | | [address] | | | | | | | [...]
--- OUTSIDE RECORDS SUMMARY | ~2018-09-10 | XMS | Encounter Summary ---
Demographics + + + | Address | [address] | | | [place] [address] | + + + | Home Phone | | + + + | Preferred Language | Unknown | + + + | Marital Status | | + + + | Orthodox Affiliation | NON | + + + | Race | White | + + + | Ethnic Group | Not or | + + + Author + + + | Author | [facility] | + + + | Organization | [facility] | + + + | Address | Unknown | + + + | Phone | Unavailable | + + + Support + + + + + | Name | Relationship | Address | Phone | + + + + + | Ted Casas | ECON | [address] | | | | | [place] | | | | | [address] | | + + + + + | Carmen Renteria | ECON | [address] | | | | | [place] | | | | | [address] | | + + + + + | Vince Loredo | ECON | [place] | | + + + + + Care Team Providers + +------+ + | Care Cloth Folder Machine Name | Role | Phone | + +------+ + | Dominick Clark | PCP | | + +------+ + Encounter Details +--------+------+ + + + | Date | Type | Department | Care Team | Description | +--------+------+ + + + | 02/20/ | Lab | Laboratory at | | Malignant neoplasm | | 2016 | | [facility] | | of upper-outer | | | | Center [address] | | quadrant of right | | | | Street [place], | | female breast (HCC) | | | | [place] [address] | | | +--------+------+ + + + [...] + + | Variant lymphs present | [facility] | | | MEDICAL CENTER | + + + + + + + + | Performing | Address | City/State/Zipcode | Phone Number | | Organization | | | | + + + + + | [facility] | And | [place] [address] | [phone] | | MEDICAL CENTER | Streets | [...] + + | [place] | [place] | [place] [address] | [phone] | | MEDICAL CENTER | [facility] | | | + + + [...] | | A MEDICAL | | | [facility] | | | CENTER | | + [...] the MDRD equation recommended by the | [facility] | | National Kidney Disease Education Program. Estimated GFR | [facility] | | Interpretive Information: <60 mL/min/1.73 sq [...] | [facility] | [place] | [place] [address] | [phone] | | [facility] | Streets | | | + + + + + documented in this encounter Visit Diagnoses + + | Diagnosis | + + | Malignant neoplasm of upper-outer quadrant of right female breast (HCC) Malignant | | neoplasm of upper-outer quadrant of female breast | + + documented in this encounter"
--- OUTSIDE RECORDS SUMMARY | ~2018-09-10 | XMS | Encounter Summary ---
Demographics + + + | Address | [address] | | | [place] [address] | + + + | Home Phone [...] + | Ted Casas | ECON | [address] | | | | | [place] | | | | | [address] | | + + + + + | Carmen Renteria | ECON | [address] | | | | | [place] | | | | | [address] | | + + + + + | Vince Loredo | ECON | [place] | | + + + + + Care Team Providers + +------+ + | Care Tradeshow Worker Name | Role | Phone | [...] Tomasz | | | | | at [facility] | [facility] | | | | | [address] | [place] [address] | | | | | [facility] | | | | | | Mailcode: OP12B [facility] | | | | | | [facility] | | | | | | [facility], | | | | | | [place] [address] | | | | | | [phone] | | | +--------+ + + + [...]
--- OUTSIDE RECORDS SUMMARY | ~2018-09-10 | XMS | Encounter Summary ---
Demographics + + + | Address | [address] | | | [place] [address] | + + + | Home Phone | | + + + | Preferred Language | Unknown | + + + | Marital Status | | + + + | Sabianist Affiliation | NON | + + + | Race | White | + + + | Ethnic Group | Not or | + + + Author + + + | Author | [facility] | + + + | Organization | [facility] | + + + | Address | Unknown | + + + | Phone | Unavailable | + + + Support + + + + + | Name | Relationship | Address | Phone | + + + + + | Ted Casas | ECON | [address] | | | | | [place] | | | | | [address] | | + + + + + | Carmen Renteria | ECON | [address] | | | | | [place] | | | | | [address] | | + + + + + | Vince Loredo | ECON | [place] | | + + + + + Care Team Providers + +------+ + | Care Bindery Technician Name | Role | Phone | [...] Cyn | | | | | at [facility] | [facility] | | | | | [address] | [place], [place] [facility] | | | | | [facility] | | | | | | Mailcode: OP12B [facility] | | | | | | [facility] | | | | | | [facility], | | | | | | [place] [address] | | | | | | [phone] | | | +--------+ + + + [...] view image for the detailed interpretation from [employer] results. | CARDIOLOGY | | | | + + + + + + + + | Performing | Address | City/State/Zipcode | Phone Number | | Organization | | | | + + + + + | [facility] | [address] | [place], [place] | | | CARDIOLOGY | [address] | [address] | | + + + + + | [facility] | [address] | [place], [place] | | | CARDIOLOGY | [address] | [address] | | + + + + + documented in this encounter Visit Diagnoses + + | Diagnosis | + + | HTN Unspecified essential hypertension | + + documented in this encounter
--- OUTSIDE RECORDS SUMMARY | ~2018-09-10 | XMS | Encounter Summary ---
Demographics + + + | Address | [address] | | | [place] [address] | + + + | Home Phone [...] + | Ted Casas | ECON | [address] | | | | | [place] | | | | | [address] | | + + + + + | Carmen Renteria | ECON | [address] | | | | | [place] | | | | | [address] | | + + + + + | Vince Loredo | ECON | [place] | | + + + + + Care Team Providers + +------+ + | Care Behavioral Specialist Name | Role | Phone | [...] Refill | [facility] | Eloisa Mota ENGINE HOUSE HELPER | Refill Request | | 2017 | | [facility] | [address] | | | | | Oncology [address] | [facility] [place] [address] | | | | | [place] | [phone] | | | | | [place], [place] | | | | | | [address] | | | | | | [phone] | | | +--------+--------+ + + + [...]
--- OUTSIDE RECORDS SUMMARY | ~2018-09-10 | XMS | Encounter Summary ---
Demographics + + + | Address | [address] | | | [place] [address] | + + + | Home Phone [...] + | Ted Patterson | ECON | [address] | | | | | [place] | | | | | [address] | | + + + + + | Carmen Renteria | ECON | [address] | | | | | [place] | | | | | [address] | | + + + + + | Vince Loredo | ECON | [place] | | + + + + + Care Team Providers + +------+ + | Care Senior Radiation Protection Technician Name | Role | Phone | [...] | 2006 | Work-Transc | [facility] | [phone] | | | | ribrebecca | [place] | | | | | | [address] | | | +--------+ + + + [...] Notes Carlton, Faculty - 04/02/2007 2:51 PM [facility] SOCIAL WORK ASSESSMENT [address] [address] ROMAN PATTERSON DATE OF SERVICE: April 01, 2007 OVERVIEW: The patient is a 57-year-old white, female. She is diagnosed with breast cancer and met with Dr. Rainey, her medical oncologist, for the first time today. She meets with her surgeon, Dr. Parish in [place] on March,. She will meet with Dr. Rainey again to review her pathology report and decide on treatment options during the first week of April. The patient lives in [place], [place] with her spouse. Because her mother lives in [place] she will not be needing a [facility] as a residence. She was accompanied by her spouse and mother today. EMOTIONAL BEHAVIORAL STATUS: Fair. The patient is experiencing tearfulness and anxiety about her recent cancer diagnosis. She states that she is worried about so many things being "out of my control" since her diagnosis. 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 She would like to be able to work part-time during her treatment if possible. She denies problems with sleep and her appetite. She reports successfully quitting smoking 2 years ago with the help of acupuncture therapy. As such, she is keen to use acupuncture and nutritional counseling at [facility] after she knows the specifics of her treatment plan. CLINICAL IMPRESSION: The patient is coping reasonably well with the new diagnosis of breast cancer. FAMILY CAREGIVER STATUS: Good. The patient has a supportive , mother and daughter. The daughter also lives in [place], [place]. No deficits noted. FINANCIAL STATUS: Good. The patient reports that she has adequate income and good medical insurance coverage. No deficits noted. SUMMARY: This social worker palliative care provided an overview of the integrative medicine available at [facility]. I provided an education and motivational interviewing [...] therapy and access to counseling from a time study observer. The patient knows how to contact me directly in the interim. ELLIE/Juan ROMAN PATTERSON [id number] ADMIT DATE: /[id number] cc: Erna Rainey MD Electronically Signed SISSY Suárez [place] A [id number] ADMIT DATE: documented in t his encounter Plan of Treatment Not on filedocumented as of this encounter Visit Diagnoses Not on filedocumented in this encounter
--- OUTSIDE RECORDS SUMMARY | ~2018-09-10 | XMS | Encounter Summary ---
Demographics + + + | Address | [address] | | | [place] [address] | + + + | Home Phone [...] + | Ted Casas | ECON | [address] | | | | | [place] | | | | | [address] | | + + + + + | Carmen Renteria | ECON | [address] | | | | | [place] | | | | | [address] | | + + + + + | Vince Loredo | ECON | [place] | | + + + + + Care Team Providers + +------+ + | Care Geriatric Care Manager Name | Role | Phone [...] | | | [address] | [address] | breast in female, | | | | [place] | [phone] | estrogen receptor | | | | [address] | | positive (HCC) | | | | [phone] | | (Primary Dx) | +--------+---------+ + [...] + | [facility] | | [place] [address] | [phone] | | [facility] | Streets | | | + + [...] | FASTING 8 | No | | [facility] | | | HOURS [...] Kidney Disease Education Program. Estimated GFR | [facility] | | Interpretive Information: <60 mL/min/1.73 sq [...] [facility] | And | [place] [address] | [phone] | | MEDICAL CENTER | Streets | | | + + + + + documented in this encounter Visit Diagnoses + + | Diagnosis | + + | Malignant neoplasm of upper-outer quadrant of right breast in female, estrogen | | receptor positive (HCC) - Primary | + + documented in this encounter
--- OUTSIDE RECORDS SUMMARY | ~2018-09-10 | XMS | Encounter Summary ---
Demographics + + + | Address | [address] | | | [place] [address] | + + + | Home Phone | | + + + | Preferred Language | Unknown | + + + | Marital Status | | + + + | Mandaen Affiliation | NON | + + + | Race | White | + + + | Ethnic Group | Not or | + + + Author + + + | Author | [facility] | + + + | Organization | [facility] | + + + | Address | Unknown | + + + | Phone | Unavailable | + + + Support + + + + + | Name | Relationship | Address | Phone | + + + + + | Ted Casas | ECON | [address] | | | | | [place] | | | | | [address] | | + + + + + | Carmen Renteria | ECON | [address] | | | | | [place] | | | | | [address] | | + + + + + | Vince Loredo | ECON | [place] | | + + + + + Care Team Providers + +------+ + | Care Financial Services Director Name | Role | Phone | + +------+ + | Dominick Clark | PCP | | + +------+ + Encounter Details +--------+------+ + + + | Date | Type | Department | Care Team | Description | +--------+------+ + + + | 02/20/ | Lab | Laboratory at | | Malignant neoplasm | | 2016 | | [facility] | | of upper-outer | | | | Center [address] | | quadrant of right | | | | Street [place], | | female breast (HCC) | | | | [place] [address] | | | +--------+------+ + + + [...] + + | Variant lymphs present | [facility] | | | MEDICAL CENTER | + + + + + + + + | Performing | Address | City/State/Zipcode | Phone Number | | Organization | | | | + + + + + | [facility] | And | [place] [address] | [phone] | | MEDICAL CENTER | Streets | [...] + + | [place] | And | [place] [address] | [phone] | | MEDICAL CENTER | [facility] | | | + + + + [...] | | A MEDICAL | | | [facility] | | | CENTER | | + [...] | FASTING 8 | No | | [facility] | | | HOURS [place] | | | A MEDICAL | | | MORE? | | | CENTER | | + +---------+ + + + + + | Specimen | + + | Blood | + + + + + | Narrative | Performed At | + + + | GFR is estimated using the MDRD equation recommended by the | [facility] | | National Kidney Disease Education Program. Estimated GFR | [facility] | | Interpretive Information: <60 mL/min/1.73 sq [...] + | [facility] | And | [place] [address] | [phone] | | [facility] | Streets | | | + + + + + documented in this encounter Visit Diagnoses + + | Diagnosis | + + | Malignant neoplasm of upper-outer quadrant of right female breast (HCC) Malignant | | neoplasm of upper-outer quadrant of female breast | + + documented in this encounter"
--- OUTSIDE RECORDS SUMMARY | ~2018-09-10 | XMS | Encounter Summary ---
Demographics + + + | Address | [address] | | | [place] [address] | + + + | Home Phone [...] + | Ted Patterson | ECON | [address] | | | | | [place] | | | | | [address] | | + + + + + | Carmen Renteria | ECON | [address] | | | | | [place] | | | | | [address] | | + + + + + | Vince Loredo | ECON | [place] | | + + + + + Care Team Providers + +------+ + | Care Investigator Narcotics Name | Role | Phone | + [...] [place] | | | | | [address] | [address] | | | | | | [phone] | | | | | | | [...] Jakob Rainey Leandro - 09/02/2008 9:16 PM [facility] [address] [place] [id number] ROMAN PATTERSON DATE OF SERVICE: September 02, [...] continue every 4-months followup. XF/MedQ ROMAN PATTERSON [id number] : [id number] SERVICE DATE: 09/02/08 /[id number] cc: Adrián Gregory M.D. Electronically Signed X MD LEONARDO Brown L[place] A [id number] : 52 [id number] SERVICE DATE: 09/02/08 12 :13 PM PDTdocumented in this encounter Plan of Treatment Not on filedocumented as of this encounter Visit Diagnoses Not on filedocumented in this encounter"
--- OUTSIDE RECORDS SUMMARY | ~2018-09-10 | XMS | Encounter Summary ---
Demographics + + + | Address | [address] | | | [place] [address] | + + + | Home Phone | | + + + | Preferred Language | Unknown | + + + | Marital Status | | + + + | Church Affiliation | NON | + + + | Race | White | + + + | Ethnic Group | Not or | + + + Author + + + | Author | [facility] | + + + | Organization | [facility] | + + + | Address | Unknown | + + + | Phone | Unavailable | + + + Support + + + + + | Name | Relationship | Address | Phone | + + + + + | Ted Casas | ECON | [address] | | | | | [place] | | | | | [address] | | + + + + + | Carmen Renteria | ECON | [address] | | | | | [place] | | | | | [address] | | + + + + + | Vince Loredo | ECON | [place] | | + + + + + Care Team Providers + +------+ + | Care Five Piece Expansion Maker Hand Name | Role | Phone | [...] | | laterality, | | | | [address] | | unspecified site of | | | | [phone] | | breast (HCC) | +--------+------+ + [...] | [facility] | | [place] [address] | | + +---------+ + + CA [...] | [facility] | [address] [facility] | [place] [address] | | | - [place] | [address] | | | + + + + + [employer]CINO[employer]BRYON[employer], SERUM (05/16/2016 2:33 PM PST) + +-------+ + + + | Component | Value | Ref Range | Performed | Pathologist | | | | | At | Signature | + +-------+ + + + | [facility] | 8.9 | ng/mL | [facility] | | | EMBRYONIC | | | [...] HOSPITAL | | Smokers: 0.0-5.0 ng/mL | [facility] | + + + + + + + + | Performing | Address | City/State/Zipcode | Phone Number | | Organization | | | | + + + + + | [facility] | And | [place] [address] | [phone] | | MEDICAL CENTER | Streets | [...] (H) | 70 - 105 mg/dL | [facility] | | | PLASMA | | | [...] | | A MEDICAL | | | [place] | | | CENTER | | + [...] | + + + + + | [facility] | And | [place] [address] | [phone] | | [facility] [place] | Street | | | + + + + + documented in this encounter Visit Diagnoses + + | Diagnosis | + + | Malignant neoplasm of female breast, unspecified laterality, unspecified site of | | breast | + + documented in this encounter"
--- OUTSIDE RECORDS SUMMARY | ~2018-09-10 | XMS | Encounter Summary ---
Demographics + + + | Address | [address] | | | [place] [address] | + + + | Home Phone | | + + + | Preferred Language | Unknown | + + + | Marital Status | | + + + | Mandaeism Affiliation | Unknown | + + + | Race | Unknown | + + + | Ethnic Group | Unknown | + + + Author + + + | Author | [facility] | + + + | Organization | [facility] | + + + | Address | Unknown | + + + | Phone | Unavailable | + + + Support + + + + + | Name | Relationship | Address | Phone | + + + + + | Ted Casas | ECON | [address] | | | | | [place] | | | | | [address] | | + + + + + | Jersey Marroquin | ECON | [place] | | | | | [address] | | + + + + + Care Team Providers + +------+ + | Care Fire Information Officer Name | Role | Phone | [...] | Radiology | Diagnoses | Suleman, | [facility] | | | | | Numbness | MD Wally | [address] | | | | | Procedures | [address] | | | | | MRI lumbar | [address] | [place], [place] | | | | | spine | Drive | [address] Phone: | | | | | without | [place], [place] | [phone] | | | | | contrast | [address] | Fax: | | | | | | Phone: | [phone] | | | | | | [phone] | | | | | | | Fax: | | | | | | | [phone] | | +--------+--------+ + + + + MRI/CAT Scan (Routine) +--------+--------+ + + + + | Status | Reason | Specialty | Diagnoses / | Referred By | Referred To | | | | | Procedures | Contact | Contact | +--------+--------+ + + + + | Closed | | Radiology | Diagnoses | Suleman, | [facility] | | | | | Numbness | MD Wally | [address] | | | | | Procedures | [address] | | | | | MRI lumbar | [address] | [place], [place] | | | | | spine | Drive | [address] Phone: | | | | | without | [place] | [phone] | | | | | contrast | [address] | Fax: | | | | | | Phone: | [phone] | | | | | | [phone] | | | | | | | Fax: | | | | | | | [phone] | | +--------+--------+ + + + + Reason for Visit MRI/CAT Scan (Routine) +--------+--------+ + + + + | Status | Reason | Specialty | Diagnoses / | Referred By | Referred To | | | | | Procedures | Contact | Contact | +--------+--------+ + + + + | Closed | | Radiology | Diagnoses | Suleman, | [facility] | | | | | Numbness | MD Wally | [address] | | | | | Procedures | [address] | | | | | MRI lumbar | [address] | [place] | | | | | spine | Drive | [address] Phone: | | | | | without | [place] | [phone] | | | | | contrast | [address] | Fax: | | | | | | Phone: | [phone] | | | | | | [phone] | | | | | | | Fax: | | | | | | | [phone] | | +--------+--------+ + + + + Encounter Details +--------+ + + + + | Date | Type | Department | Care Team | Description | +--------+ + + + + | 08/05/ | Hospital | [facility] | Wally Shell, | Numbness | | 2019 | Encounter | [facility] | [address] | | | | | MRI [address] | Drive [place], [place] | | | | | [address] | [address] | | | | | [place] [address] | | | | | | [phone] | | | +--------+ + + + [...] | | | | | | Drive [place], [place] | | | | | | [address] | | | | | | | [...] | + + + + + | [facility] | [address] | [place] [address] | | + + + + + in this encounter Visit Diagnoses + + | Diagnosis | + + | Numbness | + + | Disturbance of skin sensation | + +"
--- OUTSIDE RECORDS SUMMARY | ~2018-09-10 | XMS | Encounter Summary ---
Demographics + + + | Address | [address] | | | [place] [address] | + + + | Home Phone [...] + | Ted Patterson | ECON | [address] | | | | | [place] | | | | | [address] | | + + + + + | Carmen Renteria | ECON | [address] | | | | | [place] | | | | | [address] | | + + + + + | Vince Loredo | ECON | [place] | | + + + + + Care Team Providers + +------+ + | Care Door Assembler Name | Role | Phone | [...] [place] | | | | | [address] | [address] | | | | | | [phone] | | | | | | | [...] Erna Rainey MD - 03/16/2013 2:02 PM [facility] [address] [place] [address] ROMAN PATTERSON ANN DATE OF SERVICE: March [...] her bone density before returning visit. XF/MedQ /[id number] ROMAN PATTERSON [id number] : 54 [id number] SERVICE DATE: 03/16/13 cc: Adrián Gregory M.D. Electronically Signed 03/31/13 1203 X MD LEONARDO Brown LEE ANN [id number] : 54 [id number] SERVICE DATE: 03/16/13 12 :28 PM Erna Braden MD - 07/29/2012 10:39 PM PDT [facility] [address] [place] [address] ROMAN PATTERSON DATE OF SERVICE: July 29, [...] study in 2 years. XF/MedQ ROMAN PATTERSON [id number] : 54 [id number] SERVICE DATE: 07/29/12 /[id number] cc: Adrián Gregory M.D. Electronically Signed 08/04/12 0840 X MD LEONARDO Brown LEE ANN [id number] : 54 [id number] SERVICE DATE: 07/29/12 12 :22 PM Erna Braden MD - 06/17/2012 8:51 PM [facility] [address] [place] [address] ROMAN PATTERSON DATE OF SERVICE: June 17, [...] , she is planning to go to [facility], via train in the second half [...] weeks for a returning visit. PAKO/ROMAN Crain [id number] : 54 [id number] SERVICE DATE: 06/17/12 /[id number] cc: Adrián Gregory M.D. Electronically Signed 06/18/12 0853 X MD LEONARDO Brown LEE ANN [id number] : 52 [id number] SERVICE DATE: 06/17/12 12 :20 PM PDTdocumented in this encounter Plan of Treatment Not on filedocumented as of this encounter Visit Diagnoses Not on filedocumented in this encounter"
--- OUTSIDE RECORDS SUMMARY | ~2018-09-10 | XMS | Encounter Summary ---
Demographics + + + | Address | [address] | | | [place] [address] | + + + | Home Phone [...] + | Ted Patterson | ECON | [address] | | | | | [place] | | | | | [address] | | + + + + + | Carmen Renteria | ECON | [address] | | | | | [place] | | | | | [address] | | + + + + + | Vince Loredo | ECON | [place] | | + + + + + Care Team Providers + +------+ + | Care Scleroscope Tester Name | Role | Phone | [...] [place] | | | | | [address] | [address] | | | | | | [phone] | | | | | | | [...] Erna Rainey MD - 12/19/2011 5:18 PM [facility] [address] [place] [address] ROMAN PATTERSON ANN DATE OF SERVICE: December [...] will switch her to annual follow-up. PAKO/Juan /[id number] Electronically Signed 02/11/13 1708 X MD LEONARDO Brown LEE ANN [id number] : 54 [id number] SERVICE DATE: 12/19/11 12 :36 PM PDTdocumented in this encounter Plan of Treatment Not on filedocumented as of this encounter Visit Diagnoses Not on filedocumented in this encounter"
--- OUTSIDE RECORDS SUMMARY | ~2018-09-10 | XMS | Encounter Summary ---
Demographics + + + | Address | [address] | | | [place] [address] | + + + | Home Phone | | + + + | Preferred Language | Unknown | + + + | Marital Status | | + + + | Latter Day Affiliation | NON | + + + [...] + | Ted Casas | ECON | [address] | | | | | [place] | | | | | [address] | | + + + + + | Carmen Renteria | ECON | [address] | | | | | [place] | | | | | [address] | | + + + + + | Vince Loredo | ECON | [place] | | + + + + + Care Team Providers + +------+ + | Care Drop Tester Name | Role | Phone | [...] Dx) | | | | Surgery at [facility] [address] | [place] [address] | | | | | [address] Mail | | | | | | Code: [address] | | | | | | for Health and | | | | | | Healing, 5th Floor | | | | | | [place], [place] | | | | | | [address] | | | | | | [phone] | | | +--------+---------+ + + + [...]
--- OUTSIDE RECORDS SUMMARY | ~2018-09-10 | XMS | Encounter Summary ---
Demographics + + + | Address | [address] | | | [place] [address] | + + + | Home Phone [...] + | Ted Patterson | ECON | [address] | | | | | [place] | | | | | [address] | | + + + + + | Carmen Renteria | ECON | [address] | | | | | [place] | | | | | [address] | | + + + + + | Vince Loredo | ECON | [place] | | + + + + + Care Team Providers + +------+ + | Care Muffler Mechanic Name | Role | Phone | [...] | | | right female | [facility] | [facility] | | | | | breast, | [place], [place] | [place], | | | | | unspecified | [address] | [place] [address] | | | | | site of | Phone: | | | | | | breast | [phone] | | | | | | Procedures | Fax: | | | | | | PET CT SKULL | [phone] | | | | | | BASE [...] | | [address] [facility] | [facility], [place] | | | | | [facility] The | [address] | | | | | [place] | [phone] | | | | | [address] | | | +--------+ + + + [...] | + + + | [address] [place] [address] | [facility] | | [place] [address] | DEPARTMENT OF | | [phone] | RADIOLOGY | | Name: PERRY PATTERSON Phys: MARISOL ALBERTO | | | : 1950 Sex: F CSN: | | | [id number] MR# [id number] Exam Date: | | | 07/04/2016 EXAM: [...] Transcribed Date/Time: 07/05/2016 01:05 | | | Balloon Design Printer: FLUENCY | | + + + + + | Procedure Note | + + | Interface, Radiology Results - 07/05/2016 1:09 AM PDT [address] | | [place] [address] | | Name: PERRY PATTERSON ANN Phys: REMYMARISOL S : 1950 Sex: F | | CSN: [id number] MR# [id number] Exam Date: 07/04/2016 EXAM:PET-CT CLINICAL | | [...] | | |Transcribed Date/Time: 07/05/2016 01:05 | |Balloon Design Printer: GORDO | | | | | | [...]
--- OUTSIDE RECORDS SUMMARY | ~2018-09-10 | XMS | Encounter Summary ---
Demographics + + + | Address | [address] | | | [place] [address] | + + + | Home Phone | | + + + | Preferred Language | Unknown | + + + | Marital Status | | + + + | Yazdanism Affiliation | NON | + + + [...] + | Ted Casas | ECON | [address] | | | | | [place] | | | | | [address] | | + + + + + | Carmen Renteria | ECON | [address] | | | | | [place] | | | | | [address] | | + + + + + | Vince Loredo | ECON | [place] | | + + + + + Care Team Providers + +------+ + | Care Forensic Materials Engineer Name | Role | Phone | [...] Wall | | | | Surgery at [facility] [address] | [place], [place] | (Primary Dx) | | | | [address] Mail | [address] | | | | | Code: [facility] | [phone] | | | | | for Health and | | | | | | Healing, 5th Floor | | | | | | [place], [place] | | | | | | [address] | | | | | | [phone] | | | +--------+---------+ + + + [...]
--- OUTSIDE RECORDS SUMMARY | ~2018-09-10 | XMS | Encounter Summary ---
Demographics + + + | Address | [address] | | | [place] [address] | + + + | Home Phone | | + + + | Preferred Language | Unknown | + + + | Marital Status | | + + + | Quaker Affiliation | Unknown | + + + | Race | Unknown | + + + | Ethnic Group | Unknown | + + + Author + + + | Author | [facility] | + + + | Organization | [facility] | + + + | Address | Unknown | + + + | Phone | Unavailable | + + + Support + + + + + | Name | Relationship | Address | Phone | + + + + + | Ted Casas | ECON | [address] | | | | | [place] | | | | | [address] | | + + + + + | Jersey Marroquin | ECON | [place] | | | | | [address] | | + + + + + Care Team Providers + +------+ + | Care Building Equipment Inspector Name | Role | Phone | [...] [place] | | | | | | [address] | | | | | | [phone] | | | +--------+--------+ + + + [...] [place] | | | | | | [id number] | | | | | | | | +--------+---------+ + + + as of this encounter Visit Diagnoses Not on filein this encounter"
--- OUTSIDE RECORDS SUMMARY | ~2018-09-10 | XMS | Encounter Summary ---
Demographics + + + | Address | [address] | | | [place] [address] | + + + | Home Phone [...] + | Ted Casas | ECON | [address] | | | | | [place] | | | | | [address] | | + + + + + | Carmen Renteria | ECON | [address] | | | | | [place] | | | | | [address] | | + + + + + | Vince Loredo | ECON | [place] | | + + + + + Care Team Providers + +------+ + | Care Client Portfolio Manager Name | Role | Phone | [...] [place] | | | | | | [address] | | | | | | [phone] | | | | | | | [...] + + + | BANDS % | BILLBOARD POSTER HELPER | 0 - 7 % | [facility] | | | | | | A MEDICAL | | | | | | CENTER | | + + + + + + | BANDS # | BILLBOARD POSTER HELPER | 0.00 - 0.70 x10 | [facility] [...] | + + + + + | [facility] | And | [place] [address] | | | [facility] | [facility] | | | + + + + + COMPLETE METABOLIC SET (NA,K,CL,CO2,BUN,CREAT,GLUC,CA,AST,ALT,BILI TOTAL,ALK PHOS,ALB,PROT TOTAL) (01/09/2011 8:19 AM PDT) + + + + + + | Component | Value | Ref Range | Performed | Pathologist | | | | | At | Signature | + + + + + + | SODIUM, | 142 | 137 - 146 MEQ/L | [facility] | | | PLASMA [...] | + + + + + | [facility] | And | [place] [address] | | | MEDICAL CENTER | Streets | | | + + + + + documented in this encounter Visit Diagnoses Not on filedocumented in this encounter"
--- OUTSIDE RECORDS SUMMARY | ~2018-09-10 | XMS | Encounter Summary ---
Demographics + + + | Address | [address] | | | [place] [address] | + + + | Home Phone [...] + | Ted Casas | ECON | [address] | | | | | [place] | | | | | [address] | | + + + + + | Carmen Renteria | ECON | [address] | | | | | [place] | | | | | [address] | | + + + + + | Vince Loredo | ECON | [place] | | + + + + + Care Team Providers + +------+ + | Care Tube Winder Name | Role | Phone | + [...] [place] | | | | | | [address] | | | | | | [phone] | | | | | | | [...] + + + + | [facility] | And | [place] [address] | | | [facility] | Street | | | + [...] 139 | 137 - 146 MEQ/L | [facility] | | | PLASMA | | | [...] [facility] | | [place] [address] | | | [facility] | [facility] | | | + + + + + documented in this encounter Visit Diagnoses Not on filedocumented in this encounter"
--- OUTSIDE RECORDS SUMMARY | ~2018-09-10 | XMS | Encounter Summary ---
Demographics + + + | Address | [address] | | | [place] [address] | + + + | Home Phone [...] + | Ted Casas | ECON | [address] | | | | | [place] | | | | | [address] | | + + + + + | Carmen Renteria | ECON | [address] | | | | | [place] | | | | | [address] | | + + + + + | Vince Loredo | ECON | [place] | | + + + + + Care Team Providers + +------+ + | Care Correctional Counselor/Case Manager Name | Role | Phone | + +------+ + | Dominick Clark | PCP | | + +------+ + Encounter Details +--------+ + + + + | Date | Type | Department | Care Team | Description | +--------+ + + + + | 07/05/ | Fixed Wing Aircraft Flight Mechanic | [facility] | Erna Rainey, | Malignant neoplasm | | 2017 | | Center - Medical | MD [address] | of upper-outer | | | | Oncology [address] | [place], [place] | quadrant of right | | | | Street The | [address] | female breast (HCC) | | | | [place] | [phone] | (Primary Dx) | | | | [address] | | | | | | [phone] | | | +--------+ + + + [...] | + + + + + | [facility] | [address] | [place] [address] | [phone] | | MEDICAL CENTER | Streets | [...] | | A MEDICAL | | | [facility] | | | CENTER | | + [...] Kidney Disease Education Program. Estimated GFR | [facility] | | Interpretive Information: <60 [...] | + + + + + | [facility] | [place] | [place] [address] | [phone] | | [facility] | Streets | | | + + + + + documented in this encounter Visit Diagnoses + + | Diagnosis | + + | Malignant neoplasm of upper-outer quadrant of right female breast (HCC) - Primary | | Malignant neoplasm of upper-outer quadrant of female breast | + + documented in this encounter"
--- OUTSIDE RECORDS SUMMARY | ~2018-09-10 | XMS | Encounter Summary ---
Demographics + + + | Address | [address] | | | [place] [address] | + + + | Home Phone [...] + | Ted Patterson | ECON | [address] | | | | | [place] | | | | | [address] | | + + + + + | Carmen Renteria | ECON | [address] | | | | | [place] | | | | | [address] | | + + + + + | Vince Loredo | ECON | [place] | | + + + + + Care Team Providers + +------+ + | Care Continuous Improvement Engineer Name | Role | Phone | + +------+ + | Dominick Garcia MD | PCP | | + +------+ + Encounter Details +--------+ + + + + | Date | Type | Department | Care Team | Description | +--------+ + + + + | 08/24/ | Inside | [facility] | Redd Ernareina Waldron, | | | 2015 | Referral | [facility] [address] | MD [address] | | | | Order | [address] | [place], [place] | | | | | [place] | [address] | | | | | [address] | [phone] | | | | | | | [...] Street | [facility] | | [place] [address] | DEPARTMENT OF | | [phone] | RADIOLOGY | | Name: ROMAN PATTERSON ANN Phys: ERNA ALBERTO | | | : 1950 Sex: F CSN: | | | [id number] MR# [id number] Exam Date: | | | 11/01/2015 EXAM: [...] Transcribed | | | Date/Time: 11/01/2015 13:29 Defensive Fire Control Systems Operator: FLUENCY | | + + + + + | Procedure Note | + + | Interface, Radiology Results - 11/01/2015 1:33 PM PDT [address] | | [facility] [place] [address] | | Name: ROMAN PATTERSON Phys: ERNA ALBERTO : 1950 Sex: F | | CSN: [id number] MR# [id number] Exam Date: 11/01/2015 EXAM:BONE DENSITY 1 [place] [...] | | |Transcribed Date/Time: 11/01/2015 13:29 | |Defensive Fire Control Systems Operator: FLUENCY | | | | | [...]
--- OUTSIDE RECORDS SUMMARY | ~2018-09-10 | XMS | Encounter Summary ---
Demographics + + + | Address | [address] | | | [place] [address] | + + + | Home Phone [...] + | Ted Casas | ECON | [address] | | | | | [place] | | | | | [address] | | + + + + + | Carmen Renteria | ECON | [address] | | | | | [place] | | | | | [address] | | + + + + + | Vince Loredo | ECON | [place] | | + + + + + Care Team Providers + +------+ + | Care Sterile Supervisor Name | Role | Phone | [...] E | | | | | | [place] | | | | | | [place] | | | | | | [address] | | | | | | [phone] | | | +--------+--------+ + + + [...]
--- OUTSIDE RECORDS SUMMARY | ~2018-09-10 | XMS | Encounter Summary ---
Demographics + + + | Address | [address] | | | [place] [address] | + + + | Home Phone | | + + + | Preferred Language | Unknown | + + + | Marital Status | | + + + | Episcopal Affiliation | NON | + + + | Race | White | + + + | Ethnic Group | Not or | + + + Author + + + | Author | [facility] | + + + | Organization | [facility] | + + + | Address | Unknown | + + + | Phone | Unavailable | + + + Support + + + + + | Name | Relationship | Address | Phone | + + + + + | Ted Casas | ECON | [address] | | | | | [place] | | | | | [address] | | + + + + + | Carmen Renteria | ECON | [address] | | | | | [place] | | | | | [address] | | + + + + + | Vince Loredo | ECON | [place] | | + + + + + Care Team Providers + +------+ + | Care Management Psychologist Name | Role | Phone | + [...] Refill | [facility] | Eloisa Mota DATABASE SECURITY ADMINISTRATOR | Refill Request | | 2016 | | [place] [facility] | [address] | | | | | Oncology [address] | [facility] [place] [address] | | | | | [place] | [phone] | | | | | [place], [place] | | | | | | [address] | | | | | | [phone] | | | +--------+--------+ + + + [...]
--- OUTSIDE RECORDS SUMMARY | ~2018-09-10 | XMS | Encounter Summary ---
Demographics + + + | Address | [address] | | | [place] [address] | + + + | Home Phone [...] + | Ted Casas | ECON | [address] | | | | | [place] | | | | | [address] | | + + + + + | Carmen Renteria | ECON | [address] | | | | | [place] | | | | | [address] | | + + + + + | Vince Loredo | ECON | [place] | | + + + + + Care Team Providers + +------+ + | Care Director Advertising Name | Role | Phone | + [...] [place] | | | | | | [address] | | | | | | [phone] | | | | | | | [...] 0.3 | 0 - 0.6 x10 | [facility] | | | | | 3/UL | A MEDICAL | | | | | | CENTER | | + +---------+ + + + | BANDS % | 0.7 | 0 - 7 % | [facility] | | | | | | A MEDICAL | | | | | | CENTER | | + +---------+ + + + | BANDS # | 0.0 (L) | 0.00 - 0.70 x10 | [facility] | | | | | 3/UL [...] | + + + + + | [facility] | And | [place] [address] | | | MEDICAL CENTER | Streets [...] (L) | 137 - 146 MEQ/L | [facility] | | | PLASMA | | [...] | + + + + + | [facility] | And | [place] [address] | | | [facility] | Streets | | | + + + + + documented in this encounter Visit Diagnoses Not on filedocumented in this encounter"
--- OUTSIDE RECORDS SUMMARY | ~2018-09-10 | XMS | Encounter Summary ---
Demographics + + + | Address | [address] | | | [place] [address] | + + + | Home Phone [...] + | Ted Casas | ECON | [address] | | | | | [place] | | | | | [address] | | + + + + + | Carmen Renteria | ECON | [address] | | | | | [place] | | | | | [address] | | + + + + + | Vince Loredo | ECON | [place] | | + + + + + Care Team Providers + +------+ + | Care Therapy Technician Name | Role | Phone | [...] [place] | | | | | | [address] | | | | | | [phone] | | | | | | | [...] DEPARTMENT OF | | performed using a [email or web address] Discovery QDR scanner. Indication: The | RADIOLOGY [...] Densitometry was performed using a | | [employer] QDR scanner.Indication: The patient is a 62 [...]
--- OUTSIDE RECORDS SUMMARY | ~2018-09-10 | XMS | Encounter Summary ---
Demographics + + + | Address | [address] | | | [place] [address] | + + + | Home Phone [...] + | Ted Casas | ECON | [address] | | | | | [place] | | | | | [address] | | + + + + + | Carmen Renteria | ECON | [address] | | | | | [place] | | | | | [address] | | + + + + + | Vince Loredo | ECON | [place] | | + + + + + Care Team Providers + +------+ + | Care Maintenance Foreman Name | Role | Phone | + +------+ + PCP | Unavailable | + +------+ + Encounter Details +--------+------+ + + + | Date | Type | Department | Care Team | Description | +--------+------+ + + + | 05/07/ | Lab | Laboratory at [facility] | | | | 2008 | | [address] | | | | | | [place], [place] | | | | | | [address] | | | | | | [phone] | | | +--------+------+ + + + [...] | + + + + + | [facility] | [address] | [place] [address] | | | PATHOLOGY | [address] | | | + + + + + | [facility] | [address] | [facility] [place] [address] | | | PATHOLOGY | [address] | | | + + + + + INR (05/07/2008 2:08 PM PST) + + + + + + | Component | Value | Ref Range | Performed | Pathologist | | | | | At | Signature | + + + + + + | INR | 1.06Comment: | 0.90 - 1.20 INR | [facility] | | | | INR | | [...] + + + + + | [facility] DEPARTMENT OF | [address] | [place] [address] | | | PATHOLOGY | [address] | | | + + + + + | [facility] DEPARTMENT | [address] | [place] [address] | | | PATHOLOGY | [address] [...] DEPARTMENT OF | [address] | [place] [address] | | | PATHOLOGY | [address] | | | + + + + + | [facility] DEPARTMENT OF | [address] | [place] [address] | | | PATHOLOGY | [address] [...] DEPARTMENT OF | [address] | [place] [address] | | | PATHOLOGY | [address] | | | + + + + + | [facility] | [address] | [place] [address] | | | PATHOLOGY | [address] | | | + + + + + documented in this encounter Visit Diagnoses Not on filedocumented in this encounter"
--- OUTSIDE RECORDS SUMMARY | ~2018-09-10 | XMS | Encounter Summary ---
Demographics + + + | Address | [address] | | | [place] [address] | + + + | Home Phone | | + + + | Preferred Language | Unknown | + + + | Marital Status | | + + + | Zoroastrianism Affiliation | NON | + + + [...] + | Ted Casas | ECON | [address] | | | | | [place] | | | | | [address] | | + + + + + | Carmen Renteria | ECON | [address] | | | | | [place] | | | | | [address] | | + + + + + | Vince Loredo | ECON | [place] | | + + + + + Care Team Providers + +------+ + | Care Animal Husbandry Professor Name | Role | Phone | [...] Tomasz | | | | | at [facility] | [facility] | | | | | [address] | [place], [place] [facility] | | | | | [facility] | | | | | | Mailcode: [id number] [facility] | | | | | | [facility] | | | | | | [facility], | | | | | | [place] [address] | | | | | | [phone] | | | +--------+ + + + [...] view image for the detailed interpretation from [employer] results. | CARDIOLOGY | | | | + + + + + + + + | Performing | Address | City/State/Zipcode | Phone Number | | Organization | | | | + + + + + | [facility] | [phone] | [place], [place] | | | CARDIOLOGY | [facility] | [address] | | + + + + + | [facility] | [phone] | [place], [place] | | | CARDIOLOGY | [facility] | [address] | | + + + + + documented in this encounter Visit Diagnoses Not on filedocumented in this encounter
[~2018-09-10 14:39] MED LIST: CLINDAMYCIN HC150 MG PO; CRESTOR5 MG PO; DIOVAN40 MG PO; JANUVIA25 MG PO; LASIX20 MG PO; METFORMIN HCL500 MG PO; METOPROLOL TART25 MG PO; POTASSIUM CHLO20 ME1 PO
[2018-09-10] MEDS ORDERED: OXYBUTYNIN CHLOR5 MG PO (15:02)
[2018-09-10] MEDS ORDERED: NEURONTIN300 MG PO (15:02)
[2018-09-10] MEDS ORDERED: GABAPENTIN100 MG PO (15:03)
[2018-09-10] MEDS ORDERED: CRESTOR40 MG PO (15:04)
[2018-09-10] MEDS ORDERED: FENOFIBRATE160 MG PO (15:05)
[2018-09-10] MEDS ORDERED: AMITRIPTYLINE H50 MG PO (15:07)
--- NOTE | 2018-09-10 16:41 | EKG ---
[facility] [address] [facility] [place] [address] Signed Atrial flutter with 2:1 AV conduction Left axis deviation Left bundle branch block Abnormal ECG No previous ECGs available Confirmed by XIOMARA CANDELARIO MD ([id number]) on 09/10/2018 4:41:08 PM Electronically Signed By: XIOMARA CANDELARIO MD 09/10/18 1641 PATIENT NAME: LEONARDOPERRY Electrocardiogram DATE OF : 54 PHYSICIAN: XIOMARA CANDELARIO MD REPORT #: [id number] REPORT IS CONFIDENTIAL AND NOT TO BE RELEASED WITHOUT AUTHORIZATION
--- NOTE | 2018-09-10 19:05 | NUR ---
PT RECEIVED FROM ED. PT AMBULATED TO BATHROOM, VOIDED 150 ML. PT 88-94% ON ROOM AIR, PLACED ON 1L NC. VSS. DOXYCYCLINE AND IV FLUIDS STARTED PER ORDER. ADMISSION HISTORY TAKEN. PT PROVIDED WITH WATER, TURKEY SNADWICH BOX ORDERED FROM KITCHEN. PT DENIES OTHER NEEDS AT THIS TIME.
--- NOTE | 2018-09-10 20:14 | NUR ---
PT CALLED, NEEDED ASSISTANCE TO BR. INDEPENDENT OUT OF BED, ASSISTED WITH IV POLE, TO BR INDEPENDENTLY.
--- NOTE | 2018-09-10 20:22 | NUR ---
UP TO BR, VOIDED, CLEAR YELLOW URINE, BACK TO BED, SB ASSIST, NO C/O CP OR SOB, TOLERATED WELL. tELE#6 SR, TACHY AT TIMES. O2 2LNC, BACK ON SHE DESATTEDT O 84 ON RETURN TO BED WALKED TO BR W/O O2. O2 BACK ON. SATS UP TO 97% INMEDIATELY. LUNGS VERY COARSE T/O. MOIST, NON PRODUCTIVE COUGH.. COOP WITH PROCEDURE AND ASSESSMENT. RT IN ROOM, EXPLAINED NEBS TO PT. WAITING FOR FAMILY TO BRING HOME CPAP.
--- NOTE | 2018-09-10 22:53 | NUR ---
IN PT ROOM IV PUMP BEEPING. PERIPHERAL IV NOT PATENT, PULLED. IV D/C'D WNL. NEW IV STARTED BY RN IN LEFT WRIST. PT TOLERATED WELL. FRESH ICE WATER PROVIDED. NO ADDITIONAL REQUESTS AT THIS TIME. CALL LIGHT IN REACH.
--- NOTE | 2018-09-10 23:13 | NUR ---
484 cbg, pt had just eating [address] Welch notified, no new orders, received SS Insulin/sliding scale 6 units sc. pt denies s/sx hyperglycemia. Pt up to br, voided, back to bed, tolerated well. O2 2L in place, home CPAP at bedside
--- NOTE | 2018-09-11 00:53 | NUR ---
RESTING,USING CPAP W O2. CALL LIGHT AT BEDSIDE
--- NOTE | 2018-09-11 03:32 | NUR ---
resting, no distress, wearing cpa, no distress. call light at bedside
--- NOTE | 2018-09-11 07:19 | EKG ---
[facility] [address] [facility] [place] [address] Signed Sinus tachycardia with premature atrial complexes Left bundle branch block Abnormal ECG When compared with ECG of 10-SEP-2018 14:41, Sinus rhythm has replaced Atrial flutter Nonspecific T wave abnormality, improved in Inferior leads Confirmed by XIOMARA CANDELARIO MD ([id number]) on 09/11/2018 7:19:38 AM Electronically Signed By: XIOMARA CANDELARIO MD 09/11/18 0719 PATIENT NAME: PERRY PATTERSON ANN Electrocardiogram DATE OF : 54 PHYSICIAN: XIOMARA CANDELARIO MD REPORT #: [id number] REPORT IS CONFIDENTIAL AND NOT TO BE RELEASED WITHOUT AUTHORIZATION
--- NOTE | 2018-09-11 07:36 | NUR ---
REPORT RECEIVED FROM DIPPER AND BAKER RN. PT SITTING UP IN BED. REPSIRATIOSN EQUAL AND NONLABORED. D5 1/2 NS INFUSING AT 75ML/HR. DENIES NEEDS. CALL LIGHT IN REACH.
--- NOTE | 2018-09-11 13:21 | NUR ---
PT WAS SITTING IN CHAIR-ALERT, ORIENTED AND EATING LUNCH. WITH A RASP IN HER VOICE, SHE STATED THAT SHE WAS FEELING MUCH BETTER TODAY. PT MENTIONED THAT SHE FEELS INFORMED AND THANKED ME FOR COMING BY. EXTENDED A BLESSING, WILL FOLLOW NEEDED
[2018-09-11] MEDS ORDERED: LASIX40 MG PO (16:57)
[2018-09-11] MEDS ORDERED: TOPROL XL50 MG PO (17:00)
[2018-09-11] MEDS ORDERED: JANUMET 50-1,01 EACH PO (17:03)
[2018-09-11] MEDS ORDERED: AVAPRO300 MG PO (17:06)
[2018-09-11] MEDS ORDERED: PROTONIX40 MG PO (17:07)
[2018-09-11] MEDS ORDERED: VITAMIN D5000 UNIT PO (17:09)
[2018-09-11] MEDS ORDERED: GABAPENTIN100 MG PO (17:12)
[2018-09-11] MEDS ORDERED: K-TAB ER20 MEQ PO (17:13)
[2018-09-11] MEDS ORDERED: FLUOXETINE HCL20 MG PO (17:15)
[2018-09-11] MEDS ORDERED: OXYBUTYNIN CHLOR5 M1 PO (17:17)
[2018-09-11] MEDS ORDERED: BASAGLAR K100 UNIT/1 SUB-Q (17:20)
--- NOTE | 2018-09-11 19:50 | NUR ---
PATIENT RESTING IN BED. NO NEEDS AT THIS TIME. WATCHING TV.
--- NOTE | 2018-09-11 22:00 | NUR ---
PATIENT IN BED WITH CPAP ON, BUT STILL AWAKE AND WATCHING TV.
--- NOTE | 2018-09-12 00:27 | NUR ---
PATIENT RESTING QUITLY WITH CPAP ON, EYES CLOSED RESPIRATIONS REGULAR.
--- NOTE | 2018-09-12 02:45 | NUR ---
PATIENT RESTING QUIETLY ON HER LEFFT SIDE, EYES CLOSED, RESPIATIONS REGULAR AND EVEN AT 16. CALL LIGHT IN REACH.
--- NOTE | 2018-09-12 05:00 | NUR ---
PATIENT SLEPT PART OF THE NIGHT WITH CPAP IN PLACE AND PART OF THE NIGHT WITHOUT. PATIENT'S LUNGS ARE ARE MORE COARSE WITH SOME WHEEZING THIS AM AND IS 89% ON ROOM AIR, JUST PLACED HER BACK ON 1L/NC AND SATS BACK TO 91-92%. PATIENT UP TO USE THE RESTROOM AND BACK TO BED WITH 1PSBA. PATIENT DENIES ANY PAIN IV WNL.
--- NOTE | 2018-09-12 07:05 | NUR ---
REPORT RECEIVED FROM MEDICAL RECEPTION SPECIALIST RN. PT IN BEDWITH EYES CLOSED. 1L NC IN PLACE. RESPIRATIONS EQUAL AND NONLABORED. SL. CALL LIGHT IN REACH
--- NOTE | 2018-09-12 07:40 | NUR ---
PATIENT SLEEPING. CALL LIGHT WITHIN REACH. NO OTHER NEEDS AT THIS TIME.
--- NOTE | 2018-09-12 07:48 | NUR ---
ECHO AT BEDSIDE.
--- NOTE | 2018-09-12 09:21 | NUR ---
PT WITH ELEVATED HEART RATE ANDOXYGEN SATURATION AY 90% ON 2L NC. DR ODONNELL NOTIFIED. NEW ORDERS RECEIVED.
[2018-09-12] MEDS ORDERED: NOVOLOG100 UNIT/2 SUB-Q (09:52)
--- NOTE | 2018-09-12 12:00 | NUR ---
DR ODONNELL TO BEDSIDE TO UPDATE PT ON PLAN OF CARE. NEW ORDERS RECEIVED. QUESTIONS ANSWERED.
--- NOTE | 2018-09-12 12:27 | NUR ---
PT IN BED, ON O2 NC. SHE SEEMS TO BE BREATHING WITH MORE DIFFICULTY TODAY. PT MENTIONED THAT SHE DIDNOT SLEEP WELL LAST NIGHT. HER IS BRINGING SOMETHINF FOR HER CPAP THAT SHE BELIEVES WILL HELP. STEVE ARRIVED WHILE I WAS IN RM. GAVE PT A SHEA-SHE AND SEEMED VERY THANKFUL. LIKES THE BLUE COLOR. GAVE BLESSING, WILL FOLLOW NEEDED
--- NOTE | 2018-09-12 15:16 | NUR ---
PT UP TO BATHROOM X3 VOIDED 900ML. BACK TO BED. ASSESSMENT DONE. UPPER LOBES CLEAR WITH COARSE BASES. O2 SATURATIONS 94% ON RA. PT LEFT ON RA AT THIS TIME. DENIES SOB OR CHEST PAIN. TELE [address], HEARTRATE 92 IN SINUS RHYTHM. CALL LIGHT IN REACH.
--- NOTE | 2018-09-12 16:59 | NUR ---
PATIENT SITTING UP IN CHAIR. VITAL SIGNS AND I&O DONE. CALL LIGHT WITHIN REACH. NO OTHER NEEDS AT THIS TIME
--- NOTE | 2018-09-12 17:41 | NUR ---
PT REQUESTING RESULTS OF ECHO. DR ODONNELL NOTIFIED.
--- NOTE | 2018-09-12 18:13 | NUR ---
DR ODONNELL IN TO SEE PT AND .
--- NOTE | 2018-09-12 19:31 | NUR ---
RECEIVED REPORT FROM YAIR CHAVEZ. WHITEBOARD UPDTATED. NO REQUESTS AT THIS TIME. CALL LIGHT WITHIN REACH.
--- NOTE | 2018-09-12 21:09 | NUR ---
ASSESSMENT DONE AND MEDICATIONS GIVEN (SEE MAR). IV DC'D IT WAS LEAKING. ALERT AND ORIENTED. NO FURTHER REQUESTS AT THIS TIME. CPAP SETUP WITH 1L O2 ATTACHED. CALL LIGHT WITHIN REACH.
--- NOTE | 2018-09-12 21:19 | NUR ---
CHARGE NURSE ROUNDING NOTE: AWAKE, WATCHING TV, NO C/O PAIN. FRESH FRUIT AND FRESH FLUIDS GIVEN ON REQUEST. CONTINUES TO HAVE MOIST COUGH. CALL LIGHT AND FLUIDS AT BEDSIDE ON ROOM AIR
--- NOTE | 2018-09-12 23:00 | NUR ---
NEW IV STARTED BY YAIR LOPEZ. pt TOLERATED WELL. GOOD FLASHBACK, SL. pt HAS HOME CPAP ON. NO REQUESTS AT THIS TIME. CALL LIGHT WITHIN REACH.
--- NOTE | 2018-09-13 01:30 | NUR ---
ROUNDED ON pt. RESTING WITH EYES CLOSED, RESPIRATIONS REGULAR AND UNLABORED. CPAP ON. CALL LIGHT WITHIN REACH.
--- NOTE | 2018-09-13 02:54 | NUR ---
pt RESTING WITH EYES CLOSED, RESPIRATIONS REGULAR AND UNLABORED. CPAP ON. CALL LIGHT WITHIN REACH.
--- NOTE | 2018-09-13 03:15 | NUR ---
TELE LEAD OFF. pt RESTING WITH EYES CLOSED, CPAP ON. LEAD FIXED. ASSESSMENT DONE. NO REQUESTS AT THIS TIME. CALL LIGHT WITHIN REACH.
--- NOTE | 2018-09-13 05:50 | NUR ---
MEDICATION GIVEN (SEE MAR). SHELDON IN ROOM. VS AND I&O RECORDED. pt REPORTED "I SLEPT WELL". CPAP ON. NO REQUESTS AT THIS TIME. WATER REFRESHED. CALL LIGHT WITHIN REACH.
--- NOTE | 2018-09-13 06:02 | NUR ---
pt RESTED MOST OF SHIFT WITH CPAP ON. SBA. VOIDING QS. LUNG SOUNDS DIM. TOLERATING ADA 2G SODIUM DIET. USES CALL LIGHT APPROPRIATELY.
--- NOTE | 2018-09-13 06:14 | NUR ---
DR ODONNELL NOTIFIED VIA PHONE CLARIFICATION OF TELE. OK TO DC.
--- NOTE | 2018-09-13 07:32 | NUR ---
Pt sleeping at this time, resp even and non labored. Pt has no notable distress. Personal supplies and call light within reach.
--- NOTE | 2018-09-13 08:00 | NUR ---
PATIENT SITTING UP IN BED. RESPIRATORY THERAPIST IN ROOM. SETS UP TABLE FOR BREAKFAST. CALL LIGHT WITHIN REACH. NO OTHER NEEDS AT THIS TIME
--- NOTE | 2018-09-13 08:28 | NUR ---
PATIENT SITTING UP IN CHAIR. LINENS CHANGED. SETS UP BATHROOM FOR SHOWER. CALL LIGHT WITHIN REACH. NO OTHER NEEDS AT THIS TIME
[2018-09-13] MEDS ORDERED: DOXYCYCLINE HY100 MG PO (09:05)
[2018-09-13] MEDS ORDERED: CARVEDILOL12.5 MG PO (09:06)
[2018-09-13] MEDS ORDERED: ASPIRIN81 MG PO (09:06)
[2018-09-13] MEDS ORDERED: PREDNISONE20 MG PO (09:07)
[2018-09-13] MEDS ORDERED: VENTOLIN HFA18 GM INH (09:11)
[2018-09-13] MEDS ORDERED: AVAPRO300 MG PO (09:22)
== END 2018-09-13 12:21 | disposition home or self-care (01) ==
LOC: ED 14:39 → MS 14:41
PROVIDERS: ADMIT Internal Medicine
DX: J40 Bronchitis, not specified as acute or chronic (principal); R07.89 Other chest pain; I44.7 Left bundle-branch block, unspecified; I50.20 Unspecified systolic (congestive) heart failure; I34.0 Nonrheumatic mitral (valve) insufficiency; F39 Unspecified mood [affective] disorder; G89.4 Chronic pain syndrome; E11.9 Type 2 diabetes mellitus without complications; Z85.3 Personal history of malignant neoplasm of breast; Z87.891 Personal history of nicotine dependence; Z82.49 Family history of ischemic heart disease and other diseases of the circulatory system; Z79.84 Long term (current) use of oral hypoglycemic drugs; Z79.899 Other long term (current) drug therapy; Z88.1 Allergy status to other antibiotic agents; Z88.2 Allergy status to sulfonamides; Z88.0 Allergy status to penicillin
CPT/HCPCS: 36415; 71045; 80048; 80053; 82803; 83605; 83735; 83880; 84484; 85025; 93005; 93010; 93306; 94640; 94667; 94668; 96361; 96365; 96366; 96372; 96374; 96375; 96376; 99285-25; G0378; J1650; J1815; J1940; J2930; J7060; J7512

== ENCOUNTER 2020-02-18 13:41 | Observation (INO) | payer MEDICARE, OTHER ==
[~2020-02-18] VITALS: Ht 154.9 cm; Wt 102.1 kg
[~2020-02-18 13:41] MED LIST changes: +AMITRIPTYLINE H50 MG PO; +ASPIRIN81 MG PO; +AVAPRO300 MG PO; +B-121000 MC2 PO; +BASAGLAR K100 UNIT/1 SUB-Q; +CARVEDILOL12.5 MG PO; +CRESTOR40 MG PO; +DOXYCYCLINE HY100 MG PO; +ENTRESTO 49 MG1 EACH PO; +FENOFIBRATE160 MG PO; +FLUOXETINE HCL20 M1 PO; +FLUOXETINE HCL20 MG PO; +GABAPENTIN100 MG PO; +JANUMET 50-1,01 EACH PO; +K-TAB ER20 MEQ PO; +LASIX40 MG PO; +LEVOTHYROXINE125 MCG PO; +NEURONTIN300 MG PO; +NOVOLOG100 UNIT/2 SUB-Q; +OXYBUTYNIN CHLOR5 M1 PO; +OXYBUTYNIN CHLOR5 MG PO; -POTASSIUM CHLO20 ME1 PO; +POTASSIUM20 MEQ/15 PO; +PREDNISONE20 MG PO; +PROTONIX40 MG PO; +SPIRONOLACTONE25 MG PO; +TOPROL XL50 MG PO; +VENTOLIN HFA18 GM INH; +VITAMIN D5000 UNIT PO
[2020-02-18] MEDS ORDERED: FUROSEMIDE20 MG PO (14:08)
[2020-02-18] MEDS ORDERED: REGLAN10 MG PO (14:10)
[2020-02-18] MEDS ORDERED: OXYBUTYNIN CHLOR5 MG PO (14:11)
[2020-02-18] MEDS ORDERED: PANTOPRAZOLE SO40 MG PO (14:12)
[2020-02-18] MEDS ORDERED: ZOFRAN4 MG PO (14:12)
[2020-02-18] MEDS ORDERED: LANTUS SOL100 UNIT/1 SUB-Q (14:29)
[2020-02-18] MEDS ORDERED: COREG25 MG PO (18:21)
[2020-02-18] MEDS ORDERED: LASIX20 MG PO (18:31)
[2020-02-18] MEDS ORDERED: ENTRESTO 97 MG1 EACH PO (18:34)
[2020-02-18] MEDS ORDERED: JANUMET XR 50-1 EAC1 PO (18:35)
[2020-02-18] MEDS ORDERED: NOVOLOG FL100 UNIT/1 SUB-Q (18:37)
[2020-02-18] MEDS ORDERED: OXYBUTYNIN CHLOR5 M1 PO (18:38)
--- NOTE | 2020-02-18 19:45 | EKG ---
[facility] [address] [facility] [place] [address] Signed Normal sinus rhythm Right superior axis deviation Nonspecific intraventricular block Abnormal ECG When compared with ECG of 18-NOV-2019 10:46, premature atrial complexes are no longer present Confirmed by XIOMARA CANDELARIO MD ([id number]) on 02/18/2020 7:45:32 PM Electronically Signed By: XIOMARA CANDELARIO MD 02/18/20 194 PATIENT NAME: PERRY PATTERSON Electrocardiogram DATE OF : 54 PHYSICIAN: XIOMARA CANDELARIO MD REPORT #: [id number] REPORT IS CONFIDENTIAL AND NOT TO BE RELEASED WITHOUT AUTHORIZATION
--- NOTE | 2020-02-19 22:11 | PATH ---
[facility] [address] [place], [place] [address] Signed ORDERING PHYSICIAN: Nino Veloz MD PATIENT NAME: PERRY PATTERSON GENDER: F : 1950 Prior History: DATE CASE NUM ADEQUACY DIAGNOSIS HPV RESULTS PHYSICIAN The 5 most recent reports are included. This history does not include results of pap smears performed at another laboratory. SPECIMEN(S): MOLECULAR PATHOLOGY RESULTS: SARS-CoV-2 Not Detected ADDITIONAL NOTES.: The [place] [employer] SARS-CoV-2 Assay is a multiplex real-time PCR (RT-PCR) in vitro diagnostic test intended for the qualitative detection of RNA from SARS-CoV-2 from individuals who meet COVID-19 clinical and/or epidemiological criteria. In general, SARS-CoV-2 RNA can be detected during the acute phase of infection. Positive results indicate the presence of SARS-CoV-2 RNA. Clinical correlation with patient history and other diagnostic information is necessary to determine patient infection status. Positive results do not rule out bacterial infection or co-infection with other viruses. Negative results do not preclude SARS-CoV-2 infection and should not be used as the sole basis for patient management decisions. Negative results must be combined with other clinical observations, patient history, and epidemiological information. The [place] [facility] SARS-CoV-2 Assay is not yet approved or cleared by the [place] FDA. When there are no FDA-approved or cleared tests available, and other criteria are met, FDA can make tests available under an emergency access mechanism called an Emergency Use Authorization (EUA). The EUA for this test is supported by the [place] of Health and Human Service's (HHS's) declaration that circumstances exist to justify the emergency use of in vitro diagnostics for the detection and/or diagnosis of the virus that causes COVID-19. This EUA will remain in effect for the duration of the COVID-19 declaration justifying emergency of IVDs, unless it is terminated or PATIENT NAME: PERRY PATTERSON PATHOLOGY DATE OF : 54 REPORT #: [id number] PHYSICIAN: LULU PATHOLOGY PCP: FIDENCIO BARKER REPORT IS CONFIDENTIAL AND NOT TO BE RELEASED WITHOUT AUTHORIZATION [facility] [address] [facility] [place], [place] [address] Signed revoked by FDA, after which the test may no longer be used. The [place] Fusion SARS-CoV-2 Assay is for use only under EUA in US laboratories certified under the Clinical Laboratory Improvement Amendments of 1988 (CLIA) to perform high complexity tests. [facility] [facility] is certified under CLIA to perform high complexity clinical laboratory testing. PERFORMING LABORATORY.: Molecular testing was performed by [facility] [address] [place] [address] (Lead Blender: Joshua Oro D.O.; CLIA#: [id number]) Diagnostician: System Interface Pathologist Electronically Signed 02/19/2020 Copies: ~ PATIENT NAME: PERRY PATTERSON PATHOLOGY DATE OF : 54 REPORT #: [id number] PHYSICIAN: LULU NGUYEN PCP: FIDENCIO BARKER REPORT IS CONFIDENTIAL AND NOT TO BE RELEASED WITHOUT AUTHORIZATION
== END 2020-02-19 12:25 | disposition home or self-care (01) ==
LOC: ED 13:41 → MS 13:42
PROVIDERS: ADMIT Internal Medicine; ATTEND Internal Medicine
DX: T44.3X1A Poisoning by other parasympatholytics [anticholinergics and antimuscarinics] and spasmolytics, accidental (unintentional), initial encounter (principal); T50.911A Poisoning by multiple unspecified drugs, medicaments and biological substances, accidental (unintentional), initial encounter; R41.82 Altered mental status, unspecified; Z20.828 Contact with and (suspected) exposure to other viral communicable diseases; G47.33 Obstructive sleep apnea (adult) (pediatric); R47.81 Slurred speech; R53.1 Weakness; E11.43 Type 2 diabetes mellitus with diabetic autonomic (poly)neuropathy; K31.84 Gastroparesis; I50.9 Heart failure, unspecified; Z85.3 Personal history of malignant neoplasm of breast; Z87.891 Personal history of nicotine dependence; Z88.8 Allergy status to other drugs, medicaments and biological substances; Z88.1 Allergy status to other antibiotic agents; Z88.0 Allergy status to penicillin; Z88.2 Allergy status to sulfonamides; Z79.899 Other long term (current) drug therapy; Z79.82 Long term (current) use of aspirin; Z79.4 Long term (current) use of insulin
CPT/HCPCS: 36415; 36600; 51701; 70450; 71045; 80048; 80053; 81001; 82803; 83735; 84484; 85025; 93005; 93010; 96374; 97162; 99285-25; C9803; G0378; J3475; J7030; U0003